=== PATIENT | male | born 1960 | race Caucasian/White ===

== ENCOUNTER 2023-09-19 21:55 | Observation (INO) ==
[2023-09-19 23:10] LABS: Hematocrit (blood only) 39.3 % (42.0-52.0); Hemoglobin 13.5 g/dl (14.0-18.0); Mean Corpuscular Hemoglobin 31.2 pg (25.0-34.0); Mean Corpuscular Hgb Conc 34.4 g/dL (32.0-36.0); Mean Corpuscular Volume 90.8 fL (80.0-100.0); Mean Platelet Volume 10.9 fL (9.4-12.4); Platelet Count 278 K/uL (130-400); RDW Coefficient of Variation 13.5 % (11.5-14.5); RDW Standard Deviation 44.4 fL (36.4-46.3); Red Blood Count 4.33 M/uL (4.70-6.10); White Blood Count 15.41 K/ul (4.8-10.8)
[2023-09-19 23:13] LABS: Base Excess VBG 4.5 mEq/L; HCO3 VBG 28 mmol/L; PCO2 VBG 39 mmHg (38-50); PO2 VBG 70 mmHg; pH VBG 7.47 (7.36-7.41)
[2023-09-19 23:25] LABS: Albumin Globulin Ratio 1.4 (0.9-2); Albumin Level 4.1 gm/dl (3.4-5.0); BUN Creatinine Ratio 19.7 (10-20); Bilirubin,Total 0.4 mg/dl (0.2-1.0); Creatinine Clr Calc Pharmacy 71.9 ml/min; Est GFR (African American) 61.3 ml/min; Est GFR (Non-African American) 52.9 ml/min; Globulin 2.9 gm/dl (2.5-4.0); Magnesium 2.1 mg/dl (1.7-2.4); Potassium 3.4 mmol/L (3.5-5.1)
[2023-09-19 23:26] LABS: Basophils % (auto) 0.6 %; Eosinophils # (auto) 0.11 K/uL (0.00-0.50); Eosinophils % (auto) 0.7 %; Immature Granulocytes # (auto) 0.07 K/uL (0.01-0.20); Immature Granulocytes % (auto) 0.5 %; Lymphocytes # (auto) 5.56 K/uL (1.20-3.40); Lymphocytes % (auto) 36.1 %; Monocytes # (auto) 1.29 K/uL (0.11-0.59); Monocytes % (auto) 8.4 %; Neutrophils # (auto) 8.28 K/uL (1.40-6.50); Neutrophils % (auto) 53.7 %
[2023-09-19 23:31] LABS: Troponin I High Sensitivity 10.4 pg/ml (0-20)
--- NOTE | 2023-09-19 23:32 | Emergency Department Note ---
Impression & Plan Acute exacerbation of chronic obstructive pulmonary disease, Acute hypokalemia, Shortness of breath, Leukocytosis, HIMA (acute kidney injury) ED Provider Note HISTORY OF PRESENT ILLNESS: Patient is a 63-year-old male presenting with shortness of breath. Patient reports that he has had progressively worsening shortness of breath over the last week. He was diagnosed with bronchitis 3 days ago and started on prednisone 20 mg daily. He states that he is gotten progressively more short of breath in the last 3 days. He states that shortness of breath is both at rest and with exertion. He does report some right-sided rib pain. He has been having a cough productive of a green-yellow sputum. Denies any notable fevers at home, but does report being covered in sweat and getting intermittent chills. Denies any recent sick contact exposures. He reports his lower extremities are always swollen and he takes Lasix daily. Denies any DVT or PE history. He is on aspirin daily. Patient does not wear any supplemental oxygen at baseline. ROS: as above PHYSICAL EXAM: Constitutional: Patient appears in no acute distress. HENT: Head: Normocephalic and atraumatic. Eyes: EOMI, PERRL Mouth/Throat: Mucous membranes moist. Neck: Trachea midline. Neck supple. Cardiovascular: RRR, No murmurs, rubs or gallops. Intact distal pulses. Pulmonary/Chest: Patient is conversationally dyspneic. Coarse breath sounds bilaterally. Abdominal: Abdomen soft, no tenderness, rebound or guarding. Musculoskeletal: No edema, tenderness or deformity noted. Skin: Warm and dry. No rash, erythema, pallor or cyanosis Psychiatric: Appropriate mood and affect for situation. Neurological: Alert and keenly responsive. CN II-XII grossly intact, moving all extremities equally and fully. MDM: - Vitals signs showed hypertension - History obtained via patient. Patient presents with shortness of breath and cough. Patient reports has been having progressively worsening shortness of breath over the last week. He was diagnosed with bronchitis 3 days ago and started on prednisone 20 mg daily. He states he has been getting progressively more short of breath in the last 3 days. He is short of breath both at rest and with exertion. He is also had some right-sided rib pain. Has been having a cough productive of green-yellow sputum. Denies any fevers. Denies any DVT or PE history. Denies any anterior chest pain. He is not on any supplemental oxygen at t baseline. - Chronic conditions affecting care: HTN; HLD; hypothyroidism - Differential diagnoses include, but are not limited to: Congestive heart failure; acute coronary syndrome; COPD/asthma exacerbation; pulmonary edema; pulmonary embolism; pneumonia; pneumothorax; viral syndrome - Order placed for continuous cardiac monitoring. At this time, monitor showed rate of 82 bpm with paced rhythm, per my interpretation. - External medical records reviewed. ER visit note from 09/16/2023 was reviewed. Patient presented with cough for the last 2 weeks. He was diagnosed with acute bronchospasm and acute bronchitis and discharged with prednisone. - EKG reviewed by myself showed paced rhythm. - Laboratory workup interpreted by myself showed leukocytosis (15.41) with left shift; hypokalemia (K 3.4); HIMA (Cr 1.42); normal troponin; normal BNP; normal procalcitonin; normal lactate - CXR negative for pneumonia, per my interpretation - Blood cultures ordered - Patient given duoneb treatment in ER. Given 1L NS, 2g IV rocephin for pulmonary coverage and 30 mg IV solumedrol. - Biofire in process. - Patient was weaned down to room air and had normal saturations. However, with ambulation the patient saturations dipped to 90 to 91% he became significantly tachypneic and conversationally dyspneic. - Discussion was had with older adult social work specialist about patient's case and need for admission - Hospitalist consulted for admission - Patient admitted to [facility] Hospitalist service for further evaluation and management. ASSESSMENT AND PLAN: Diagnosis: COPD exacerbation; leukocytosis; shortness of breath; acute hypokalemia; HIMA Plan: admit Past Med/Surg History Medical History Aortic root dilation 4.7cm. Ascending aorta also enlarged at 4.0 cm. Follows with [facility] cardio. Arthritis History of COVID-19 Tested positive 12/02/20 at [facility]. Had body aches; symptoms have resolved. HTN (hypertension) Hyperlipidemia Hypothyroidism Kidney stone Migraine Osteoarthritis Surgical History History of bronchoscopy History of colonoscopy Status post lobectomy of lung R middle lobe, with post op pleuropericarditis and cardiac tamponade [place] [facility] [place] teeth removed Family History Other Cancer Diabetes No family history of adverse response to anesthesia Social History Smoking Status: Never smoker Second Hand Exposure: No; Do You Dip or Chew Tobacco: No (QUIT 9 YEARS AGO); Hx Alcohol Use: Yes Alcohol type: beer and wine Hx Substance Use: No Preferred Language: Malian Communication Ability: Effective Hydrometer Tester Required: No Beliefs That Will Affect Care: None Current Living Situation: Spouse Feels Safe at Home: Yes Assistive Devices: Glasses Allergies Allergies Allergy/AdvReac Type Severity Reaction Status Date / Time No Known Allergies Allergy Verified 05/22/23 01:26 Home Meds Home Medications Medication Instructions Recorded Confirmed aspirin 81 mg tablet,delayed 81 mg PO QAM 05/08/19 05/22/23 release atorvastatin 40 mg tablet 40 mg PO QAM 05/08/19 05/22/23 cetirizine 10 mg tablet (Zyrtec) 10 mg PO QAM 05/08/19 05/22/23 cholecalciferol (vitamin D3) 50 2,000 unit PO QAM 05/08/19 05/22/23 mcg (2,000 unit) tablet (Vitamin D3) furosemide 40 mg tablet 40 mg PO QAM 05/08/19 05/22/23 multivitamin 1 tab PO QAM 05/08/19 05/22/23 omega-3 fatty acids 500 mg capsule 500 mg PO QAM 05/08/19 05/22/23 spironolactone 25 mg tablet 25 mg PO QAM 05/08/19 05/22/23 vitamin E 268 mg (400 unit) capsule 400 unit PO QAM 05/08/19 05/22/23 lisinopril 40 mg tablet 40 mg PO QAM 10/26/20 05/22/23 meclizine 25 mg tablet 25 mg PO TID PRN Dizziness 03/23/21 05/22/23 sumatriptan succinate 50 mg tablet 50 mg PO DAILY PRN Migraine 03/23/21 05/22/23 (Imitrex) Headache amitriptyline 25 mg tablet 25 mg PO HS 06/21/21 05/22/23 azelastine 137 mcg (0.1 %) nasal 2 spray intranasal BID 01/11/23 05/22/23 spray aerosol levothyroxine 125 mcg tablet 125 mcg PO DAILYBB 01/11/23 05/22/23 pantoprazole 40 mg tablet,delayed 40 mg PO QAM 01/11/23 05/22/23 release potassium chloride 10 mEq 10 meq PO DAILY 01/11/23 05/22/23 tablet,extended release tizanidine 4 mg tablet 4 mg PO Q6H PRN Muscle Spasm 01/11/23 05/22/23 azelastine 137 mcg (0.1 %) nasal 2 spray intranasal BID 05/22/23 05/22/23 spray aerosol Previous Rx's Medication Instructions Recorded Flutter Valve #1 ea 08/02/21 albuterol sulfate 90 mcg/actuation 2 puff inhalation QID PRN 09/01/21 aerosol inhaler (Ventolin HFA) shortness of breath or wheezing #18 grams prednisone 20 mg tablet 20 mg PO BID 5 days #10 tabs 09/16/23 Results & Data (ED) Vital Signs Vital Signs - 24 hr 09/19/23 22:09 09/19/23 22:20 09/19/23 22:18 Temperature 36.8 C Temperature Source Temporal Artery Scan Pulse Rate 91 H 93 H Pulse Rate [Apical] 85 Pulse Rate [Exercises] Pulse Rate [Recovery] Pulse Rate [Resting] Pulse Rate from SpO2 Sensor Respiratory Rate 28 H 22 Respiratory Rate [Exercises] Respiratory Rate [Recovery] Respiratory Rate [Resting] Respiratory Effort / Characteristics Non-Labored Spontaneous Respiratory Depth Normal Blood Pressure 142/83 H Blood Pressure [Left Arm] 160/104 H Blood Pressure Mean 102 Blood Pressure Mean [Left Arm] 122 Blood Pressure Position [Left Arm] Sitting Pulse Oximetry 96 95 Pulse Oximetry [Exercises] Pulse Oximetry [Recovery] Pulse Oximetry [Resting] Oxygen Delivery Method Room Air Room Air Oxygen Flow Rate Sepsis Recent Fever Within 48 Hours No Sepsis New/Unexplained Change in Mental Status No Sepsis Action Taken by Nursing No Action Required 09/19/23 22:51 09/19/23 23:00 09/19/23 23:31 Temperature Temperature Source Pulse Rate 86 88 Pulse Rate [Apical] 88 Pulse Rate [Exercises] Pulse Rate [Recovery] Pulse Rate [Resting] Pulse Rate from SpO2 Sensor 89 Respiratory Rate 22 21 20 Respiratory Rate [Exercises] Respiratory Rate [Recovery] Respiratory Rate [Resting] Respiratory Effort / Characteristics Respiratory Depth Blood Pressure 143/86 H Blood Pressure [Left Arm] 133/90 Blood Pressure Mean 105 Blood Pressure Mean [Left Arm] 104 Blood Pressure Position [Left Arm] Sitting Pulse Oximetry 97 97 96 Pulse Oximetry [Exercises] Pulse Oximetry [Recovery] Pulse Oximetry [Resting] Oxygen Delivery Method Room Air Nasal Cannula Room Air Oxygen Flow Rate 3 Sepsis Recent Fever Within 48 Hours Sepsis New/Unexplained Change in Mental Status Sepsis Action Taken by Nursing 09/20/23 00:43 Temperature Temperature Source Pulse Rate Pulse Rate [Apical] Pulse Rate [Exercises] 103 H Pulse Rate [Recovery] 95 H Pulse Rate [Resting] 85 Pulse Rate from SpO2 Sensor Respiratory Rate Respiratory Rate [Exercises] 26 H Respiratory Rate [Recovery] 24 Respiratory Rate [Resting] 20 Respiratory Effort / Characteristics Respiratory Depth Blood Pressure Blood Pressure [Left Arm] Blood Pressure Mean Blood Pressure Mean [Left Arm] Blood Pressure Position [Left Arm] Pulse Oximetry Pulse Oximetry [Exercises] 93 Pulse Oximetry [Recovery] 94 Pulse Oximetry [Resting] 95 Oxygen Delivery Method Room Air Oxygen Flow Rate Sepsis Recent Fever Within 48 Hours Sepsis New/Unexplained Change in Mental Status Sepsis Action Taken by Nursing Laboratory Data 09/19/23 22:40 09/19/23 22:40 Lab Results 09/19/23 09/19/23 09/19/23 Range/Units 22:40 22:40 22:40 WBC 15.41 H (4.8-10.8) K/ul RBC 4.33 L (4.70-6.10) M/uL Hgb 13.5 L (14.0-18.0) g/dl Hct 39.3 L (42.0-52.0) % MCV 90.8 (80.0-100.0) fL MCH 31.2 (25.0-34.0) pg MCHC 34.4 (32.0-36.0) g/dL RDW Std Deviation 44.4 (36.4-46.3) fL RDW Coeff of Bola 13.5 (11.5-14.5) % Plt Count 278 (130-400) K/uL MPV 10.9 (9.4-12.4) fL Immature Gran % (Auto) 0.5 % Neut % (Auto) 53.7 % Lymph % (Auto) 36.1 % [place] % (Auto) 8.4 % Eos % (Auto) 0.7 % Baso % (Auto) 0.6 % Neut # (Auto) 8.28 H (1.40-6.50) K/uL Lymph # (Auto) 5.56 H (1.20-3.40) K/uL [place] # (Auto) 1.29 H (0.11-0.59) K/uL Eos # (Auto) 0.11 (0.00-0.50) K/uL Baso # (Auto) 0.10 (0.00-0.20) K/uL Immature Gran # (Auto) 0.07 (0.01-0.20) K/uL PT 10.7 (9.0-12.0) Seconds INR 1.0 (0.9-1.1) VBG pH (7.36-7.41) VBG pCO2 (38-50) mmHg VBG pO2 mmHg VBG HCO3 mmol/L VBG O2 Saturation % VBG Base Excess mEq/L Sodium 140 (136-145) mmol/L Potassium 3.4 L (3.5-5.1) mmol/L Chloride 104 (98-107) mmol/L Carbon Dioxide 28 (21-32) mmol/L Anion Gap 8 (3-11) BUN 28 H (6-23) mg/dl Creatinine 1.42 H (0.6-1.4) mg/dl Est Cr Clr Drug Dosing 71.9 ml/min Est GFR ( Amer) 61.3 ml/min Est GFR (Non-Af Amer) 52.9 ml/min BUN/Creatinine Ratio 19.7 (10-20) Glucose 170 H (70-99(Fasting)) mg/dl Lactate (0.4-2.0) mmol/L Calcium 9.0 (8.6-10.3) mg/dl Magnesium 2.1 (1.7-2.4) mg/dl Total Bilirubin 0.4 (0.2-1.0) mg/dl AST 23 (13-39) U/L ALT 49 (7-52) U/L Alkaline Phosphatase 72 (34-104) U/L Troponin I High Sens 10.4 (0-20) pg/ml B-Natriuretic Peptide (0-100) pg/ml Total Protein 7.0 (6.0-8.3) gm/dl Albumin 4.1 (3.4-5.0) gm/dl Globulin 2.9 (2.5-4.0) gm/dl Albumin/Globulin Ratio 1.4 (0.9-2) Procalcitonin (0-0.5) ng/ml 09/19/23 09/19/23 09/19/23 Range/Units 22:40 23:06 23:06 WBC (4.8-10.8) K/ul RBC (4.70-6.10) M/uL Hgb (14.0-18.0) g/dl Hct (42.0-52.0) % MCV (80.0-100.0) fL MCH (25.0-34.0) pg MCHC (32.0-36.0) g/dL RDW Std Deviation (36.4-46.3) fL RDW Coeff of Bola (11.5-14.5) % Plt Count (130-400) K/uL MPV (9.4-12.4) fL Immature Gran % (Auto) % Neut % (Auto) % Lymph % (Auto) % [place] % (Auto) % Eos % (Auto) % Baso % (Auto) % Neut # (Auto) (1.40-6.50) K/uL Lymph # (Auto) (1.20-3.40) K/uL [place] # (Auto) (0.11-0.59) K/uL Eos # (Auto) (0.00-0.50) K/uL Baso # (Auto) (0.00-0.20) K/uL Immature Gran # (Auto) (0.01-0.20) K/uL PT (9.0-12.0) Seconds INR (0.9-1.1) VBG pH 7.47 H (7.36-7.41) VBG pCO2 39 (38-50) mmHg VBG pO2 70 mmHg VBG HCO3 28 mmol/L VBG O2 Saturation 95.0 % VBG Base Excess 4.5 mEq/L Sodium (136-145) mmol/L Potassium (3.5-5.1) mmol/L Chloride (98-107) mmol/L Carbon Dioxide (21-32) mmol/L Anion Gap (3-11) BUN (6-23) mg/dl Creatinine (0.6-1.4) mg/dl Est Cr Clr Drug Dosing ml/min Est GFR ( Amer) ml/min Est GFR (Non-Af Amer) ml/min BUN/Creatinine Ratio (10-20) Glucose (70-99(Fasting)) mg/dl Lactate (0.4-2.0) mmol/L Calcium (8.6-10.3) mg/dl Magnesium (1.7-2.4) mg/dl Total Bilirubin (0.2-1.0) mg/dl AST (13-39) U/L ALT (7-52) U/L Alkaline Phosphatase (34-104) U/L Troponin I High Sens (0-20) pg/ml B-Natriuretic Peptide 65 (0-100) pg/ml Total Protein (6.0-8.3) gm/dl Albumin (3.4-5.0) gm/dl Globulin (2.5-4.0) gm/dl Albumin/Globulin Ratio (0.9-2) Procalcitonin < 0.05 (0-0.5) ng/ml 09/19/23 Range/Units 23:53 WBC (4.8-10.8) K/ul RBC (4.70-6.10) M/uL Hgb (14.0-18.0) g/dl Hct (42.0-52.0) % MCV (80.0-100.0) fL MCH (25.0-34.0) pg MCHC (32.0-36.0) g/dL RDW Std Deviation (36.4-46.3) fL RDW Coeff of Bola (11.5-14.5) % Plt Count (130-400) K/uL MPV (9.4-12.4) fL Immature Gran % (Auto) % Neut % (Auto) % Lymph % (Auto) % [place] % (Auto) % Eos % (Auto) % Baso % (Auto) % Neut # (Auto) (1.40-6.50) K/uL Lymph # (Auto) (1.20-3.40) K/uL [place] # (Auto) (0.11-0.59) K/uL Eos # (Auto) (0.00-0.50) K/uL Baso # (Auto) (0.00-0.20) K/uL Immature Gran # (Auto) (0.01-0.20) K/uL PT (9.0-12.0) Seconds INR (0.9-1.1) VBG pH (7.36-7.41) VBG pCO2 (38-50) mmHg VBG pO2 mmHg VBG HCO3 mmol/L VBG O2 Saturation % VBG Base Excess mEq/L Sodium (136-145) mmol/L Potassium (3.5-5.1) mmol/L Chloride (98-107) mmol/L Carbon Dioxide (21-32) mmol/L Anion Gap (3-11) BUN (6-23) mg/dl Creatinine (0.6-1.4) mg/dl Est Cr Clr Drug Dosing ml/min Est GFR ( Amer) ml/min Est GFR (Non-Af Amer) ml/min BUN/Creatinine Ratio (10-20) Glucose (70-99(Fasting)) mg/dl Lactate 1.1 (0.4-2.0) mmol/L Calcium (8.6-10.3) mg/dl Magnesium (1.7-2.4) mg/dl Total Bilirubin (0.2-1.0) mg/dl AST (13-39) U/L ALT (7-52) U/L Alkaline Phosphatase (34-104) U/L Troponin I High Sens (0-20) pg/ml B-Natriuretic Peptide (0-100) pg/ml Total Protein (6.0-8.3) gm/dl Albumin (3.4-5.0) gm/dl Globulin (2.5-4.0) gm/dl Albumin/Globulin Ratio (0.9-2) Procalcitonin (0-0.5) ng/ml Administered Medications Ceftriaxone Sodium (Rocephin) 2,000 mg in 50 mls @ 100 mls/hr IV NOW STA Stop: 09/20/23 01:22 Last Admin: 09/20/23 01:02 Dose: 100 mls/hr Documented By: QGV Discontinued Medications Albuterol (Albut/Ipratrop 3mg/0.5mg Neb 3 Ml Vial) 3 ml NEB NOW STA; Protocol Stop: 09/20/23 00:54 Last Admin: 09/20/23 01:02 Dose: 3 ml Documented By: QGV Sodium Chloride (Nss) 1,000 mls @ 999 mls/hr IV .Q1H1M ONE Stop: 09/20/23 00:49 Last Admin: 09/20/23 00:17 Dose: 999 mls/hr Documented By: QGV Methylprednisolone (Methylprednisolone 40 Mg/Ml Vial) 30 mg IV NOW STA Stop: 09/20/23 00:54 Last Admin: 09/20/23 01:02 Dose: 30 mg Documented By: QGV Discharge Plan Visit Data Chief Complaint: Cough Stated Complaint: COUGH, SOB ED Provider: Dipti Handley Discharge Problem: Acute exacerbation of chronic obstructive pulmonary disease, Acute hypokalemia, Shortness of breath, Leukocytosis, HIMA (acute kidney injury) Forms Stand Alone Forms: [facility] Prescriptions Prescriptions: No Action albuterol sulfate [Ventolin HFA] 90 mcg/actuation HFA aerosol inhaler 2 puff inhalation QID PRN (Reason: shortness of breath or wheezing) Qty: 18 5RF (DME) Flutter Valve Device See Rx Instructions .Route Qty: 1 0RF Rx Instructions: As directed multivitamin Tablet 1 tab PO QAM furosemide 40 mg tablet 40 mg PO QAM atorvastatin 40 mg tablet 40 mg PO QAM cetirizine [Zyrtec] 10 mg Tablet 10 mg PO QAM aspirin 81 mg Tablet,Delayed Release (Dr/Ec) 81 mg PO QAM spironolactone 25 mg tablet 25 mg PO QAM vitamin E 400 unit Capsule 400 unit PO QAM omega-3 fatty acids 500 mg Capsule 500 mg PO QAM cholecalciferol (vitamin D3) [Vitamin D3] 2,000 unit Tablet 2,000 unit PO QAM lisinopril 40 mg tablet 40 mg PO QAM amitriptyline 25 mg tablet 25 mg PO HS sumatriptan succinate [Imitrex] 50 mg Tablet 50 mg PO DAILY MDD 4 tabs PRN (Reason: Migraine Headache) Rx Instructions: may repeat after two hours,if needed. meclizine 25 mg Tablet 25 mg PO TID PRN (Reason: Dizziness) levothyroxine 125 mcg tablet 125 mcg PO DAILYBB tizanidine 4 mg tablet 4 mg PO Q6H PRN (Reason: Muscle Spasm) pantoprazole 40 mg tablet,delayed release (DR/EC) 40 mg PO QAM potassium chloride 10 mEq tablet extended release 10 meq PO DAILY azelastine 137 mcg (0.1 %) Aerosol,[place] 2 spray INTRANASAL BID Rx Instructions: administer into each nostril azelastine 137 mcg (0.1 %) Aerosol,[place] 2 spray INTRANASAL BID Rx Instructions: administer into each nostril prednisone 20 mg tablet 20 mg PO BID 5 Days Qty: 10 0RF Referrals Referrals: Farooq Rodríguez DO [Primary Care Provider] -
[2023-09-19 23:41] LABS: Prothrombin Time 10.7 Seconds (9.0-12.0)
[2023-09-19] MEDS ORDERED: SODIUM CHLORIDE 0.9% 1,000 ML IV ONE (23:49)
[2023-09-20] MEDS ORDERED: ALBUT/IPRATROP 3MG/0.5MG NEB 3 ML VIAL NEB STA (00:53)
[2023-09-20] MEDS ORDERED: cefTRIAXone SODIUM 2,000 MG/50 ML BAG IV STA (00:53)
[2023-09-20] MEDS ORDERED: POTASSIUM CHLORIDE CRTAB 20 MEQ TABCR PO STA (01:01)
--- NOTE | 2023-09-20 01:22 | History & Physical Report ---
Date of Service September 20, 2023 Assessment & Plan (1) Severe sepsis: Plan: SIRS plus ARF Possible aspiration pneumonitis Asthma exacerbation secondary to possible aspiration pneumonitis chronic diastolic heart failure (EF 60%, TTE 2022), equivocal volume status hx PSVT as per records PVD (aortic root dilatation/ascending aortic dilatation as per records) hypertension, elevated secondary to illness hyperlipidemia on statin Rx hx pulmonary nodule status post surgery hypothyroidism, euthyroid as of recent outpatient TSH Steroid-induced hyperglycemia rule out DM Hypokalemia secondary to home diuretic Rx decreased p.o. intake Medical telemetry CS, Unasyn [employer] ANALYST eval, aspiration precautions Nebs RTC, steroid course Pulmonary consult if without improvement Baseline UA, monitor creatinine response to IV albumin given equivocal volume status Hold lisinopril and spironolactone until creatinine back to baseline Amlodipine for BP control while lisinopril and spironolactone on hold. Check hemoglobin A1c DVT prophylaxis. Heparin subcu Full code Text document was generated using [employer] voice recognition software. It may contain grammatical or spelling errors. Kindly contact undersigned for clarification of any documentation item in [employer] ion. History of Present Illness Chief Complaint: Worsening cough, shortness of breath. Primary Care Provider: Farooq Rodríguez DO History obtained from patient, family, and records. Medical history significant for chronic diastolic heart failure (EF 60%, TTE 2022), PSVT, PVD, hypertension, hyperlipidemia, bronchial asthma/bronchiectasis, pulmonary nodule status post surgery, GERD, hepatic steatosis, hypothyroidism, m ood disorder, sleep disordered breathing as per records. Last confinement 2002 for pneumonitis/pericardial effusion with evidence of early signs of tamponade. Patient transferred to [facility] [place]. 2 weeks history of junky cough symptoms. Transient headache symptoms from coughing. Not sure about sick contacts. Patient completed COVID-19 vaccination. Patient seen at the ER 3 days ago. Discharged on prednisone course for bronchitis. Worsening cough/SOB symptoms productive of yellow sputum at home. Coughing with meals/water intake as per . Chest pain from coughing. Poor appetite. Possible fluid retention/abdominal distention without pain as per patient. Patient returned to ER tonight. 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 Allergies Allergy/AdvReac Type Severity Reaction Status Date / Time Beta-Blockers AdvReac Intermediate bradycardia Verified 09/20/23 08:03 (Beta-Adrenergic Bloc Home Medications Medication Instructions Recorded Confirmed Type aspirin 81 mg tablet,delayed 81 mg PO QAM 05/08/19 09/20/23 History release atorvastatin 40 mg tablet 40 mg PO QAM 05/08/19 09/20/23 History cetirizine 10 mg tablet (Zyrtec) 10 mg PO QAM 05/08/19 09/20/23 History cholecalciferol (vitamin D3) 50 2,000 unit PO QAM 05/08/19 09/20/23 History mcg (2,000 unit) tablet (Vitamin D3) furosemide 40 mg tablet 60 mg PO QAM 05/08/19 09/20/23 History omega-3 fatty acids 500 mg capsule 500 mg PO QAM 05/08/19 09/20/23 History spironolactone 25 mg tablet 25 mg PO QAM 05/08/19 09/20/23 History vitamin E 268 mg (400 unit) capsule 400 unit PO QAM 05/08/19 09/20/23 History lisinopril 40 mg tablet 40 mg PO QAM 10/26/20 09/20/23 History meclizine 25 mg tablet 25 mg PO TID PRN Dizziness 03/23/21 09/20/23 History sumatriptan succinate 50 mg tablet 50 mg PO DAILY PRN Migraine 03/23/21 09/20/23 History (Imitrex) Headache amitriptyline 25 mg tablet 25 mg PO HS 06/21/21 09/20/23 History Flutter Valve #1 ea 08/02/21 09/20/23 Rx levothyroxine 125 mcg tablet 125 mcg PO DAILYBB 01/11/23 09/20/23 History pantoprazole 40 mg tablet,delayed 40 mg PO QAM 01/11/23 09/20/23 History release potassium chloride 10 mEq 10 meq PO DAILY 01/11/23 09/20/23 History tablet,extended release tizanidine 4 mg tablet 4 mg PO Q6H PRN Muscle Spasm 01/11/23 09/20/23 History azelastine 137 mcg (0.1 %) nasal 2 spray intranasal BID 05/22/23 09/20/23 History spray aerosol prednisone 20 mg tablet 20 mg PO BID 5 days #10 tabs 09/16/23 09/20/23 Rx albuterol sulfate 2.5 mg/3 mL 2.5 mg continuous nebulization Q4 09/20/23 09/20/23 History (0.083 %) solution for nebulization PRN Shortness Of Breath Or Wheezing albuterol sulfate 90 mcg/actuation 2 puff inhalation QID 09/20/23 09/20/23 History aerosol inhaler ipratropium 0.5 mg-albuterol 3 mg 3 ml inhalation QID 09/20/23 09/20/23 History (2.5 mg base)/3 mL nebulization soln mometasone-formoterol HFA 100 1 puff inhalation UD PRN Unknown 09/20/23 09/20/23 History mcg-5 mcg/actuation aerosol inhaler multivitamin with minerals 1 tab PO DAILY 09/20/23 09/20/23 History (Multiple Vitamin-Minerals tablet) Past Med/Surg History Medical History Aortic root dilation 4.7cm. Ascending aorta also enlarged at 4.0 cm. Follows with [facility] cardio. Arthritis History of COVID-19 Tested positive 12/02/20 at [facility]. Had body aches; symptoms have resolved. HTN (hypertension) Hyperlipidemia Hypothyroidism Kidney stone Migraine Osteoarthritis Surgical History History of bronchoscopy History of colonoscopy Status post lobectomy of lung R middle lobe, with post op pleuropericarditis and cardiac tamponade requiring transfer to [facility] [facility] for urgent pericardiocentesis. [place] teeth removed Family History Other Cancer Diabetes No family history of adverse response to anesthesia Social History Smoking Status: Never smoker Second Hand Exposure: No; Do You Dip or Chew Tobacco: No; Hx Alcohol Use: Yes Alcohol type: beer Hx Substance Use: No Preferred Language: Guyanese Communication Ability: Effective Balling Head Tender Required: No Beliefs That Will Affect Care: None Current Living Situation: Spouse Other Information That Helps Us Care for You: No Feels Safe at Home: Yes Safety Concerns: Feels Safe At This Time Assistive Devices: Cane and Glasses Review of Systems Review of Systems: As per HPI, all other systems reviewed and negative Physical Exam Physical Exam: GENERAL: Slightly uncomfortable, slightly anxious, morbidly obese, incessant coughing, minimal respiratory distress SKIN: Normal color, warm HEENT: [place] palpebral conjunctivae, no ptosis, dry buccal mucosa, nasal cannula in place NECK : Supple, short neck, no tenderness CHEST : Decreased breath sounds, occasional expiratory wheezes, no tenderness HEART : Tachycardic, no obvious murmurs ABDOMEN: Marked distention, nontender EXTREMITIES : Minimal LE swelling, no LE tenderness, no other conspicuous deformities noted NEUROLOGIC : Coherent, no facial asymmetry, no other gross focality Results & Data Results & Data Vital Signs (Past 12 Hours) Vital Signs Temp Pulse Pulse Pulse Pulse Pulse Resp 09/20/23 00:43 103 H 95 H 85 09/19/23 23:31 88 20 09/19/23 23:00 88 21 09/19/23 22:51 86 22 09/19/23 22:18 85 22 09/19/23 22:20 93 H 09/19/23 22:09 36.8 C 91 H 28 H Resp Resp Resp BP BP Pulse Ox Pulse Ox 09/20/23 00:43 26 H 24 20 93 09/19/23 23:31 133/90 96 09/19/23 23:00 143/86 H 97 09/19/23 22:51 97 09/19/23 22:18 160/104 H 95 09/19/23 22:20 09/19/23 22:09 142/83 H 96 Pulse Ox Pulse Ox O2 Del Method O2 Flow Rate 09/20/23 00:43 94 95 Room Air 09/19/23 23:31 Room Air 09/19/23 23:00 Nasal Cannula 3 09/19/23 22:51 Room Air 09/19/23 22:18 Room Air 09/19/23 22:20 09/19/23 22:09 Room Air Laboratory Results Laboratory Results WBC 15.41 K/ul (4.8-10.8) H 09/19/23 22:40 RBC 4.33 M/uL (4.70-6.10) L 09/19/23 22:40 Hgb 13.5 g/dl (14.0-18.0) L 09/19/23 22:40 Hct 39.3 % (42.0-52.0) L 09/19/23 22:40 MCV 90.8 fL (80.0-100.0) 09/19/23 22:40 MCH 31.2 pg (25.0-34.0) 09/19/23 22:40 MCHC 34.4 g/dL (32.0-36.0) 09/19/23 22:40 RDW Std Deviation 44.4 fL (36.4-46.3) 09/19/23 22:40 RDW Coeff of Bola 13.5 % (11.5-14.5) 09/19/23 22:40 Plt Count 278 K/uL (130-400) 09/19/23 22:40 MPV 10.9 fL (9.4-12.4) 09/19/23 22:40 Immature Gran % (Auto) 0.5 % 09/19/23 22:40 Neut % (Auto) 53.7 % 09/19/23 22:40 Lymph % (Auto) 36.1 % 09/19/23 22:40 Greer % (Auto) 8.4 % 09/19/23 22:40 Eos % (Auto) 0.7 % 09/19/23 22:40 Baso % (Auto) 0.6 % 09/19/23 22:40 Neut # (Auto) 8.28 K/uL (1.40-6.50) H 09/19/23 22:40 Lymph # (Auto) 5.56 K/uL (1.20-3.40) H 09/19/23 22:40 Greer # (Auto) 1.29 K/uL (0.11-0.59) H 09/19/23 22:40 Eos # (Auto) 0.11 K/uL (0.00-0.50) 09/19/23 22:40 Baso # (Auto) 0.10 K/uL (0.00-0.20) 09/19/23 22:40 Immature Gran # (Auto) 0.07 K/uL (0.01-0.20) 09/19/23 22:40 PT 10.7 Seconds (9.0-12.0) 09/19/23 22:40 INR 1.0 (0.9-1.1) 09/19/23 22:40 VBG pH 7.47 (7.36-7.41) H 09/19/23 23:06 VBG pCO2 39 mmHg (38-50) 09/19/23 23:06 VBG pO2 70 mmHg 09/19/23 23:06 VBG HCO3 28 mmol/L 09/19/23 23:06 VBG O2 Saturation 95.0 % 09/19/23 23:06 VBG Base Excess 4.5 mEq/L 09/19/23 23:06 Sodium 140 mmol/L (136-145) 09/19/23 22:40 Potassium 3.4 mmol/L (3.5-5.1) L 09/19/23 22:40 Chloride 104 mmol/L (98-107) 09/19/23 22:40 Carbon Dioxide 28 mmol/L (21-32) 09/19/23 22:40 Anion Gap 8 (3-11) 09/19/23 22:40 BUN 28 mg/dl (6-23) H 09/19/23 22:40 Creatinine 1.42 mg/dl (0.6-1.4) H 09/19/23 22:40 Est Cr Clr Drug Dosing 71.9 ml/min 09/19/23 22:40 Est GFR ( Amer) 61.3 ml/min 09/19/23 22:40 Est GFR (Non-Af Amer) 52.9 ml/min 09/19/23 22:40 BUN/Creatinine Ratio 19.7 (10-20) 09/19/23 22:40 Glucose 170 mg/dl (70-99(Fasting)) H 09/19/23 22:40 Lactate 1.1 mmol/L (0.4-2.0) 09/19/23 23:53 Calcium 9.0 mg/dl (8.6-10.3) 09/19/23 22:40 Magnesium 2.1 mg/dl (1.7-2.4) 09/19/23 22:40 Total Bilirubin 0.4 mg/dl (0.2-1.0) 09/19/23 22:40 AST 23 U/L (13-39) 09/19/23 22:40 ALT 49 U/L (7-52) 09/19/23 22:40 Alkaline Phosphatase 72 U/L (34-104) 09/19/23 22:40 Troponin I High Sens 10.4 pg/ml (0-20) 09/19/23 22:40 B-Natriuretic Peptide 65 pg/ml (0-100) 09/19/23 23:06 Total Protein 7.0 gm/dl (6.0-8.3) 09/19/23 22:40 Albumin 4.1 gm/dl (3.4-5.0) 09/19/23 22:40 Globulin 2.9 gm/dl (2.5-4.0) 09/19/23 22:40 Albumin/Globulin Ratio 1.4 (0.9-2) 09/19/23 22:40 Procalcitonin < 0.05 ng/ml (0-0.5) 09/19/23 22:40 Diagnostic Findings Chest x-ray as per my interpretation cardiomegaly EKG as per my interpretation : Rate 80, NSR, LAD, LAFB, nonspecific T wave abnormalities
[2023-09-20] MEDS ORDERED: ACETAMINOPHEN 500 MG TAB PO PRN (01:27)
[2023-09-20] MEDS ORDERED: oxyCODONE HCL IR 5 MG TAB (IMMEDIATE RELEASE) PO PRN (01:27)
[2023-09-20] MEDS ORDERED: BENZONATATE 100 MG CAPSULE PO ONE (01:27)
[2023-09-20] MEDS ORDERED: PROMETHAZINE HCL 12.5 MG in SODIUM CHLORIDE 0.9% 50 ML IV PRN (01:27)
[2023-09-20] MEDS ORDERED: BENZONATATE 100 MG CAPSULE PO PRN (01:27)
[2023-09-20] MEDS ORDERED: AMPICILLIN/SULBACTAM SOD 3,000 MG in SODIUM CHLOR 0.9% MINI-B 100 ML IV STA (01:31)
[2023-09-20 01:42] LABS: Thyroid Stimulating Hormone 5.476 uIu/ml (0.300-4.500)
[2023-09-20] MEDS ORDERED: ALBUMIN 25% 25 GM/100 ML VIAL IV ONE (01:45)
[2023-09-20] MEDS ORDERED: POTASSIUM CHLORIDE CRTAB 20 MEQ TABCR PO ONE (02:30)
[2023-09-20 04:31] LABS: Adenovirus PCR Not Detected (NotDetected); Bordetella parapertussis PCR Not Detected (NotDetected); Bordetella pertussis PCR Not Detected (NotDetected); Chlamydia pneumoniae PCR Not Detected (NotDetected); Coronavirus 229E PCR Not Detected (NotDetected); Coronavirus CoV-2 (COVID19)PCR Not Detected (NotDetected); Coronavirus HKU1 PCR Not Detected (NotDetected); Coronavirus NL63 PCR Not Detected (NotDetected); Coronavirus OC43PCR Not Detected (NotDetected); Human Metapneumovirus PCR Not Detected (NotDetected); Influenza A PCR Not Detected (NotDetected); Influenza B PCR Not Detected (NotDetected); Mycoplasma pneumoniae PCR Not Detected (NotDetected); Parainfluenza Virus 1 PCR Not Detected (NotDetected); Parainfluenza Virus 2 PCR Not Detected (NotDetected); Parainfluenza Virus 3 PCR Not Detected (NotDetected); Parainfluenza Virus 4 PCR Not Detected (NotDetected); Respiratory Syncytial VirusPCR Not Detected (NotDetected); Rhinovirus/Enterovirus PCR Not Detected (NotDetected)
[2023-09-20 04:35] LABS: T4 Free Thyroxine 1.32 ng/dl (0.61-1.60)
[2023-09-20] MEDS ORDERED: XOPENEX/ATROVENT 1.25mg/0.5MG NEB COMBO NEB SCH (05:00)
[2023-09-20] MEDS ORDERED: tiZANidine HCL 4 MG TABLET PO PRN (05:40)
[2023-09-20] MEDS ORDERED: MECLIZINE HCL 25 MG TAB PO PRN (05:40)
[2023-09-20 06:15] LABS: Basophils # (auto) 0.03 K/uL (0.00-0.20); Basophils % (auto) 0.2 %; Hematocrit (blood only) 37.4 % (42.0-52.0); Hemoglobin 12.7 g/dl (14.0-18.0); Immature Granulocytes % (auto) 0.7 %; Lymphocytes # (auto) 1.87 K/uL (1.20-3.40); Lymphocytes % (auto) 13.5 %; Mean Corpuscular Hemoglobin 30.8 pg (25.0-34.0); Mean Corpuscular Volume 90.6 fL (80.0-100.0); Mean Platelet Volume 10.7 fL (9.4-12.4); Monocytes # (auto) 0.43 K/uL (0.11-0.59); Monocytes % (auto) 3.1 %; Neutrophils # (auto) 11.43 K/uL (1.40-6.50); Neutrophils % (auto) 82.5 %; Platelet Count 238 K/uL (130-400); RDW Coefficient of Variation 13.6 % (11.5-14.5); RDW Standard Deviation 44.8 fL (36.4-46.3); Red Blood Count 4.13 M/uL (4.70-6.10); White Blood Count 13.86 K/ul (4.8-10.8)
[2023-09-20] MEDS ORDERED: amLODIPine BESYLATE 5 MG TAB PO SCH (06:20)
[2023-09-20] MEDS: HEPARIN SOD 5,000 UNIT/0.5 ML VIAL SQ SCH ×3 (06:33→20:04)
[2023-09-20] MEDS: LEVOTHYROXINE SODIUM 125 MCG TABLET PO SCH (06:33)
[2023-09-20 06:46] LABS: BUN Creatinine Ratio 22.8 (10-20); Calcium 8.7 mg/dl (8.6-10.3); Creatinine Clr Calc Pharmacy 99.4 ml/min; Est GFR (African American) 92.6 ml/min; Est GFR (Non-African American) 79.9 ml/min; Potassium 4.4 mmol/L (3.5-5.1)
[2023-09-20] MEDS: IPRATROPIUM BROMIDE NEB SOLN 0.02% 2.5 ML VIAL INH SCH ×3 (06:59→19:52)
[2023-09-20] MEDS: LEVALBUTEROL 1.25 MG/3 ML NEB NEB SCH ×3 (06:59→19:52)
--- NOTE | 2023-09-20 07:01 | XRay Report ---
SINGLE VIEW CHEST CLINICAL HISTORY: Dyspnea FINDINGS: An AP, portable, upright chest radiograph is compared to study dated 09/16/2023. Correlatio n is made with chest CT dated 01/10/2023. The examination is degraded by portable technique and apical lordotic positioning. The heart is enlarged. The pulmonary vasculature is noncongested. There is mil d bibasilar scarring/atelectasis. No airspace consolidation or large pleural effusion is identified. No pneumothorax is seen. The skeletal structures are osteopenic. The bony thorax is grossly intact. A n intrathecal lead projects over the lower thoracic spine. IMPRESSION: Cardiomegaly with no active disease in the chest. ACT 112: Negative or not required by law. Electronically signed by: Valdemar Cordon M.D. 09/20/2023 7:00 AM
--- NOTE | 2023-09-20 07:15 | Ultrasound Report ---
Exam(s): US ABDOMEN LIMITED EXAM: US Abdomen Limited, Right Upper Quadrant CLINICAL HISTORY: Abdominal distention TECHNIQUE: Real-time ultrasound of the abdomen with image documentation. COMPARISON: No relevant prior studies available. FINDINGS: Liver: There is increase echogenicity of the liver parenchyma. No mass. No intrahepatic bile duct dilation. Free fluid: No ascites. IMPRESSION: 1. No ascites. 2. Fatty infiltration of the liver. Electronically signed by: Gilda Mckenzie MD 09/20/23 04:10 AM
[2023-09-20] MEDS: AMPICILLIN/SULBACTAM SOD 3,000 MG in SODIUM CHLOR 0.9% MINI-B 100 ML IV SCH ×2 (08:08→13:15)
[2023-09-20] MEDS: PANTOprazole 40 MG TAB PO SCH (08:09)
[2023-09-20] MEDS: CETIRIZINE HCL 10 MG TABLET PO SCH (08:09)
[2023-09-20] MEDS: ATORVASTATIN 40 MG TAB PO SCH (08:09)
[2023-09-20] MEDS: MULTIVITAMIN TAB PO SCH (08:09)
[2023-09-20] MEDS: ASPIRIN 81 MG ECTAB PO SCH (08:09)
[2023-09-20] MEDS: AZELASTINE HCL 0.1% NASAL 200 SPRAYS/27,400 MCG BTL SCH ×2 (08:10→20:03)
[2023-09-20] MEDS ORDERED: methylPREDNISolone 40 MG in SYRINGE 0 ML IV SCH (09:00)
[2023-09-20 09:20] LABS: Estimated Average Glucose 131 mg/dl; Hemoglobin A1C 6.2 % (4.5-5.6)
--- NOTE | 2023-09-20 09:26 | Hospitalist Progress Note ---
Date of Service September 20, 2023 Assessment & Plan (1) Severe sepsis: (2) HIMA (acute kidney injury): (3) Acute hypokalemia: (4) Morbid obesity: (5) Hepatic steatosis: Plan SIRS plus acute renal failure--> resolved creatinine to baseline Asthma exacerbation secondary to possible aspiration pneumonitis/complicated bronchitis--> improved with no evidence of pneumonia, breathing well on room air, stop Unasyn and transition to azithromycin, 5 days of oral prednisone DuoNebs as needed. Add Mucinex, Flonase nasal spray, Robitussin AC as needed. Follow-up with pulmonology as needed. chronic diastolic heart failure (EF 60%, TTE 2022), equivocal volume status -->held lasix in setting of SIRS resuscitation efforts, restart in am hx PSVT as per records-->small run of atrial tach noted x 5 beats on telemetry in setting of acute illness. PVD (aortic root dilatation/ascending aortic dilatation as per records)-->f/u cardiology hypertension, elevated secondary to illness --improved, restart home antihypertensives. hyperlipidemia on statin Rx-continue hx pulmonary nodule status post surgery--> continue outpatient monitoring. hypothyroidism, euthyroid as of recent outpatient TSH Steroid-induced hyperglycemia rule out DM --> A1c 6.2, follow-up with PCP to discuss further monitoring/treatment Hypokalemia secondary to home diuretic Rx decreased p.o. intake--> resolved after replacement Morbid obesity DVT prophylaxis. Heparin subcu Full code Disposition-transition off med telemetry at this time and plan for home in a.m. was at bedside and all plans and questions were answered. I spent a total [id number] coordinating, documenting, and providing care for this patient excluding time spent in the performance of separately billed services DO Reynaldo Candelario ospitalist Admission and Anticipated Discharge Date Admission Date: September 20, 2023 Subjective 63 yo man presents with cough for two weeks SOB on arrival, improved mucous production persists recently sick approximately 1 month ago with residual cough ("cannot get rid of it") Patient is breathing well on room air and is tolerating p.o. no evidence of issues with aspiration recently and no evidence of pneumonia on chest imaging Abdominal ultrasound results reviewed with who was present at bedside and patient. Physical Exam Physical Exam: CONSTITUTIONAL: obese, vitals as above, generally well-appearing, NAD EYES: normal conjunctivae, no scleral icterus ENT: external ear and nose normal, MMM NECK: trachea midline RESPIRATORY: clear to auscultation bilaterally, no crackles, rales or wheezes, normal respiratory effort CARDIOVASCULAR: regular rate and rhythm, S1 and 2 heard without murmurs, gallops or rubs, no JVD, no peripheral edema CHEST: inspection of chest was normal GASTROINTESTINAL: soft, nontender, ND, no guarding MUSCULOSKELETAL: strength 5/5 throughout, head is normocephalic and atraumatic SKIN: warm and dry NEUROLOGIC: CN 2-12 grossly intact, no sensory deficit, normal cognition, normal speech, no tremor PSYCHIATRIC: alert cooperative and oriented to person, place and time. Euthymic mood, makes good eye contact, language grossly intact, recent and remote memory grossly intact. Results & Data Results & Data Vital Signs (Past 12 Hours) Vital Signs Temp Pulse Pulse Pulse Pulse Pulse Resp 09/20/23 08:55 36.7 C 95 H 18 09/20/23 06:59 81 16 09/20/23 06:30 36.7 C 82 22 09/20/23 05:47 09/20/23 05:30 81 09/20/23 05:00 71 18 09/20/23 00:43 103 H 95 H 85 09/19/23 23:31 88 20 09/19/23 23:00 88 21 09/19/23 22:51 86 22 09/19/23 22:20 93 H 09/19/23 22:18 85 22 09/19/23 22:09 36.8 C 91 H 28 H Resp Resp Resp BP BP Pulse Ox Pulse Ox 09/20/23 08:55 136/84 94 09/20/23 06:59 93 09/20/23 06:30 160/96 H 93 09/20/23 05:47 09/20/23 05:30 09/20/23 05:00 162/83 H 94 09/20/23 00:43 26 H 24 20 93 09/19/23 23:31 133/90 96 09/19/23 23:00 143/86 H 97 09/19/23 22:51 97 09/19/23 22:20 09/19/23 22:18 160/104 H 95 09/19/23 22:09 142/83 H 96 Pulse Ox Pulse Ox O2 Del Method O2 Flow Rate 09/20/23 08:55 Room Air 09/20/23 06:59 Room Air 09/20/23 06:30 Room Air 09/20/23 05:47 Room Air 09/20/23 05:30 09/20/23 05:00 Room Air 09/20/23 00:43 94 95 Room Air 09/19/23 23:31 Room Air 09/19/23 23:00 Nasal Cannula 3 09/19/23 22:51 Room Air 09/19/23 22:20 09/19/23 22:18 Room Air 09/19/23 22:09 Room Air Laboratory Results Short CBC 09/19/23 09/20/23 Range/Units 22:40 05:56 WBC 15.41 H 13.86 H (4.8-10.8) K/ul Hgb 13.5 L 12.7 L (14.0-18.0) g/dl Hct 39.3 L 37.4 L (42.0-52.0) % Plt Count 278 238 (130-400) K/uL BMP 09/19/23 09/20/23 22:40 05:53 Sodium 140 140 Potassium 3.4 L 4.4 D Chloride 104 107 Carbon Dioxide 28 26 BUN 28 H 23 Creatinine 1.42 H 1.01 D Glucose 170 H 160 H Calcium 9.0 8.7 Liver Function 09/19/23 Range/Units 22:40 Total Bilirubin 0.4 (0.2-1.0) mg/dl AST 23 (13-39) U/L ALT 49 (7-52) U/L Alkaline Phosphatase 72 (34-104) U/L Albumin 4.1 (3.4-5.0) gm/dl Diagnostic Findings Chest X-Ray 09/19/23 22:51 SINGLE VIEW CHEST CLINICAL HISTORY: Dyspnea FINDINGS: An AP, portable, upright chest radiograph is compared to study dated 09/16/2023. Correlation is made with chest CT dated 01/10/2023. The examination is degraded by portable technique and apical lordotic positioning. The heart is enlarged. The pulmonary vasculature is noncongested. There is mild bibasilar scarring/atelectasis. No airspace consolidation or large pleural effusion is identified. No pneumothorax is seen. The skeletal structures are osteopenic. The bony thorax is grossly intact. An intrathecal lead projects over the lower thoracic spine. IMPRESSION: Cardiomegaly with no active disease in the chest. ACT 112: Negative or not required by law. Electronically signed by: Valdemar Cordon M.D. 09/20/2023 7:00 AM Abdomen Ultrasound 09/20/23 01:31 Exam(s): US ABDOMEN LIMITED EXAM: US Abdomen Limited, Right Upper Quadrant CLINICAL HISTORY: Abdominal distention TECHNIQUE: Real-time ultrasound of the abdomen with image documentation. COMPARISON: No relevant prior studies available. FINDINGS: Liver: There is increase echogenicity of the liver parenchyma. No mass. No intrahepatic bile duct dilation. Free fluid: No ascites. IMPRESSION: 1. No ascites. 2. Fatty infiltration of the liver. Electronically signed by: Gilda Mckenzie MD 09/20/23 04:10 AM Medications Administered Current Inpatient Medications Acetaminophen (Acetaminophen 500 Mg Tab) 500 mg PO Q6H PRN PRN Reason: fever/pain Stop: 10/20/23 01:26 Amitriptyline HCl (Amitriptyline Hcl 25 Mg Tab) 25 mg PO HS [facility] Stop: 10/20/23 20:59 Amlodipine Besylate (Amlodipine Besylate 5 Mg Tab) [facility] Stop: 10/20/23 06:19 Last Admin: 09/20/23 08:07 Dose: 2.5 mg Aspirin (Aspirin 81 Mg Ectab) 81 mg PO QAM [facility] Stop: 10/20/23 08:59 Last Admin: 09/20/23 08:09 Dose: 81 mg Atorvastatin Calcium (Atorvastatin 40 Mg Tab) 40 mg PO QAM [facility] Stop: 10/20/23 08:59 Last Admin: 09/20/23 08:09 Dose: 40 mg Azelastine HCl (Azelastine Hcl 0.1% Nasal 200 Sprays/27,400 Mcg Btl) 2 sprays NA BID JENNIFER Stop: 10/20/23 08:59 Last Admin: 09/20/23 08:10 Dose: 2 sprays Benzonatate (Benzonatate 100 Mg Capsule) 100 mg PO TID PRN PRN Reason: Cough Stop: 10/20/23 01:26 Cetirizine HCl (Cetirizine Hcl 10 Mg Tablet) 10 mg PO QAM [facility] Stop: 10/20/23 08:59 Last Admin: 09/20/23 08:09 Dose: 10 mg Heparin Sodium (Porcine) (Heparin Sod 5,000 Unit/0.5 Ml Vial) 5,000 units SQ Q8 [facility] Stop: 10/20/23 05:59 Last Admin: 09/20/23 06:33 Dose: 5,000 units Promethazine HCl 12.5 mg/ (Sodium Chloride) 50.5 mls @ 202 mls/hr IV Q6H PRN PRN Reason: Nausea And Vomiting Stop: 10/20/23 01:26 Methylprednisolone 40 mg/ (Syringe) 0.64 mls @ 1.5 mls/min IV DAILY [facility] Stop: 10/20/23 08:59 Last Admin: 09/20/23 08:10 Dose: 1.5 mls/min Ampicillin Sodium/Sulbactam Sodium 3,000 mg/ Sodium Chloride 100 mls @ 100 mls/hr IV Q6H [facility] Stop: 09/27/23 07:59 Last Admin: 09/20/23 08:08 Dose: 100 mls/hr Ipratropium [place] (Ipratropium [place] Neb Soln 0.02% 2.5 Ml Vial) 0.5 mg INH Q6R [facility] Stop: 10/20/23 06:59 Last Admin: 09/20/23 06:59 Dose: 0.5 mg Levalbuterol HCl (Levalbuterol 1.25 Mg/3 Ml Neb) 1.25 mg NEB Q6R [facility] Stop: 10/20/23 06:59 Last Admin: 09/20/23 06:59 Dose: 1.25 mg Levothyroxine Sodium (Levothyroxine Sodium 125 Mcg Tablet) 125 mcg PO DAILYBB [facility] Stop: 10/20/23 06:29 Last Admin: 09/20/23 06:33 Dose: 125 mcg Meclizine HCl (Meclizine Hcl 25 Mg Tab) 25 mg PO TID PRN PRN Reason: Dizziness Stop: 10/20/23 05:39 Multivitamins (Multivitamin Tab) 1 tab PO QAM [facility] Stop: 10/20/23 08:59 Last Admin: 09/20/23 08:09 Dose: 1 tab Oxycodone HCl (Oxycodone Hcl Ir 5 Mg Tab (Immediate Release)) 5 mg PO Q4H PRN PRN Reason: Pain Stop: 10/04/23 01:26 Pantoprazole Sodium (Pantoprazole 40 Mg Tab) [facility] Stop: 10/20/23 08:59 Last Admin: 09/20/23 08:09 Dose: 40 mg Tizanidine HCl (Tizanidine Hcl 4 Mg Tablet) 4 mg PO Q6H PRN PRN Reason: Muscle Spasm Stop: 10/20/23 05:39
--- NOTE | 2023-09-20 12:05 | Electrocardiogram Report ---
Test Reason : Blood Pressure : / mmHG Vent. Rate : 078 BPM Atrial Rate : 078 BPM P-R Int : 158 ms QRS Dur : 096 ms QT Int : 412 ms P-R-T Axes : 066 -12 031 degrees QTc Int : 469 ms Normal sinus rhythm Incomplete right bundle branch block Nonspecific ST abnormality Confirmed by Placido Nam ([id number] on 09/20/2023 12:05:12 PM Referred By: REFERRED SELF Confirmed By:Jamaal Nam
[2023-09-20] MEDS: FLUTICASONE PROPIONATE NA SPR 16 GM BTL NAE SCH (13:16)
[2023-09-20] MEDS ORDERED: AZITHROMYCIN 500 MG in DEXTROSE 5% 250 ML IV ONE (14:00)
[2023-09-20 14:31] LABS: Appearance Urine Clear (Clear); Bilirubin Urine Negative (Negative); Blood Urine Negative (Negative); Color Urine Yellow; Glucose Urine UA Negative (Negative); Ketones Urine Trace (Negative); Leukocyte Esterase Urine Negative (Negative); Nitrite Urine Negative (Negative); Protein Urine Negative (Negative); Specific Gravity Urine 1.027 (1.000-1.030); Urobilinogen Urine Negative (Negative); pH Urine 6.5 (4.5-7.5)
[2023-09-20] MEDS ORDERED: FLUTICASONE/VILANTEROL 100/25MCG 14 PUFFS/INHALER INH PRN (14:39)
[2023-09-20] MEDS: guaiFENesin 600 MG TABCR PO SCH (20:04)
[2023-09-20] MEDS ORDERED: AMITRIPTYLINE HCL 25 MG TAB PO SCH (21:00)
[2023-09-21] MEDS: IPRATROPIUM BROMIDE NEB SOLN 0.02% 2.5 ML VIAL INH SCH ×2 (01:05→06:53)
[2023-09-21] MEDS: LEVALBUTEROL 1.25 MG/3 ML NEB NEB SCH ×2 (01:05→06:53)
[2023-09-21] MEDS: LEVOTHYROXINE SODIUM 125 MCG TABLET PO SCH (05:47)
[2023-09-21] MEDS: HEPARIN SOD 5,000 UNIT/0.5 ML VIAL SQ SCH (05:47)
[2023-09-21] MEDS: ASPIRIN 81 MG ECTAB PO SCH (07:41)
[2023-09-21] MEDS: ATORVASTATIN 40 MG TAB PO SCH (07:42)
[2023-09-21] MEDS: AZELASTINE HCL 0.1% NASAL 200 SPRAYS/27,400 MCG BTL SCH (07:43)
[2023-09-21] MEDS: FLUTICASONE PROPIONATE NA SPR 16 GM BTL NAE SCH (07:45)
[2023-09-21] MEDS: CETIRIZINE HCL 10 MG TABLET PO SCH (07:45)
[2023-09-21] MEDS: guaiFENesin 600 MG TABCR PO SCH (07:47)
[2023-09-21] MEDS: MULTIVITAMIN TAB PO SCH (07:48)
[2023-09-21] MEDS: PANTOprazole 40 MG TAB PO SCH (07:49)
[2023-09-21 07:54] LABS: Hematocrit (blood only) 37.2 % (42.0-52.0); Hemoglobin 12.8 g/dl (14.0-18.0); Mean Corpuscular Hemoglobin 31.3 pg (25.0-34.0); Mean Corpuscular Hgb Conc 34.4 g/dL (32.0-36.0); Mean Platelet Volume 10.8 fL (9.4-12.4); Platelet Count 252 K/uL (130-400); RDW Coefficient of Variation 13.8 % (11.5-14.5); Red Blood Count 4.09 M/uL (4.70-6.10); White Blood Count 17.98 K/ul (4.8-10.8)
[2023-09-21 08:07] LABS: BUN Creatinine Ratio 23.4 (10-20); Calcium 8.7 mg/dl (8.6-10.3); Creatinine Clr Calc Pharmacy 106.8 ml/min; Est GFR (Non-African American) 87.2 ml/min; Magnesium 2.3 mg/dl (1.7-2.4); Potassium 3.9 mmol/L (3.5-5.1)
[2023-09-21] MEDS ORDERED: POTASSIUM CHLORIDE 10 MEQ TABCR PO SCH (09:00)
[2023-09-21] MEDS ORDERED: SPIRONOLACTONE 25 MG TAB PO SCH (09:00)
[2023-09-21] MEDS ORDERED: predniSONE 20 MG TAB PO SCH (09:00)
[2023-09-21] MEDS ORDERED: AZITHROMYCIN 250 MG TAB PO SCH (09:00)
[2023-09-21] MEDS ORDERED: FUROSEMIDE 20 MG TAB PO SCH (09:00)
[2023-09-21] MEDS ORDERED: lisinopril 40 MG TAB PO SCH (09:00)
[2023-09-21] MEDS ORDERED: LEVALBUTEROL 1.25 MG/3 ML NEB NEB PRN (10:20)
[2023-09-21] MEDS ORDERED: IPRATROPIUM BROMIDE NEB SOLN 0.02% 2.5 ML VIAL INH PRN (10:20)
--- NOTE | 2023-09-21 11:27 | Discharge Summary ---
Discharge Summary Date of Service September 21, 2023 Admission HPI Per Admitting Provider History obtained from patient, family, and records. Medical history significant for chronic diastolic heart failure (EF 60%, TTE 2022), PSVT, PVD, hypertension, hyperlipidemia, bronchial asthma/bronchiectasis, pulmonary nodule status post surgery, GERD, hepatic steatosis, hypothyroidism, mood disorder, sleep disordered breathing as per records. Last confinement 2002 for pneumonitis/pericardial effusion with evidence of early signs of tamponade. Patient transferred to [facility]. 2 weeks history of junky cough symptoms. Transient headache symptoms from coughing. Not sure about sick contacts. Patient completed COVID-19 vaccination. Patient seen at the ER 3 days ago. Discharged on prednisone course for bronchitis. Worsening cough/SOB symptoms productive of yellow sputum at home. Coughing with meals/water intake as per . Chest pain from coughing. Poor appetite. Possible fluid retention/abdominal distention without pain as per patient. Patient returned to ER tonight. 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 Add Mucinex, Flonase nasal spray, Robitussin AC as needed. Follow-up with pulmonology as needed. chronic diastolic heart failure (EF 60%, TTE 2022), equivocal volume status -->held lasix in setting of SIRS resuscitation efforts, restart in am hx PSVT as per records-->small run of atrial tach noted x 5 beats on telemetry in setting of acute illness. PVD (aortic root dilatation/ascending aortic dilatation as per records)-->f/u cardiology hypertension, elevated secondary to illness --improved, restart home antihypertensives. hyperlipidemia on statin Rx-continue hx pulmonary nodule status post surgery--> continue outpatient monitoring. hypothyroidism, euthyroid as of recent outpatient TSH Steroid-induced hyperglycemia rule out DM --> A1c 6.2, follow-up with PCP to discuss further monitoring/treatment Hypokalemia secondary to home diuretic Rx decreased p.o. intake--> resolved after replacement Morbid obesity DVT prophylaxis. Heparin subcu Full code Disposition-transition off med telemetry at this time and plan for home in a.m. was at bedside and all plans and questions were answered. I spent a total [id number] coordinating, documenting, and providing care for this patient excluding time spent in the performance of separately billed services DO Reynaldo Candelario hHospitalist Discharge Exam CONSTITUTIONAL: obese, vitals as above, generally well-appearing, NAD EYES: normal conjunctivae, no scleral icterus ENT: external ear and nose normal, MMM NECK: trachea midline RESPIRATORY: clear to auscultation bilaterally, no crackles, rales or wheezes, normal respiratory effort CARDIOVASCULAR: regular rate and rhythm, S1 and 2 heard without murmurs, gallops or rubs, no JVD, no peripheral edema CHEST: inspection of chest was normal GASTROINTESTINAL: soft, nontender, ND, no guarding MUSCULOSKELETAL: strength 5/5 throughout, head is normocephalic and atraumatic SKIN: warm and dry NEUROLOGIC: CN 2-12 grossly intact, no sensory deficit, normal cognition, normal speech, no tremor PSYCHIATRIC: alert cooperative and oriented to person, place and time. Euthymic mood, makes good eye contact, language grossly intact, recent and remote memory grossly intact. Updated Medication List Medication Instructions Recorded Confirmed Type aspirin 81 mg tablet,delayed 81 mg PO QAM 05/08/19 09/20/23 History release atorvastatin 40 mg tablet 40 mg PO QAM 05/08/19 09/20/23 History cetirizine 10 mg tablet (Zyrtec) 10 mg PO QAM 05/08/19 09/20/23 History cholecalciferol (vitamin D3) 50 2,000 unit PO QAM 05/08/19 09/20/23 History mcg (2,000 unit) tablet (Vitamin D3) furosemide 40 mg tablet 60 mg PO QAM 05/08/19 09/20/23 History omega-3 fatty acids 500 mg capsule 500 mg PO QAM 05/08/19 09/20/23 History spironolactone 25 mg tablet 25 mg PO QAM 05/08/19 09/20/23 History vitamin E 268 mg (400 unit) capsule 400 unit PO QAM 05/08/19 09/20/23 History lisinopril 40 mg tablet 40 mg PO QAM 10/26/20 09/20/23 History meclizine 25 mg tablet 25 mg PO TID PRN Dizziness 03/23/21 09/20/23 History sumatriptan succinate 50 mg tablet 50 mg PO DAILY PRN Migraine 03/23/21 09/20/23 History (Imitrex) Headache amitriptyline 25 mg tablet 25 mg PO HS 06/21/21 09/20/23 History Flutter Valve #1 ea 08/02/21 09/20/23 Rx levothyroxine 125 mcg tablet 125 mcg PO DAILYBB 01/11/23 09/20/23 History pantoprazole 40 mg tablet,delayed 40 mg PO QAM 01/11/23 09/20/23 History release potassium chloride 10 mEq 10 meq PO DAILY 01/11/23 09/20/23 History tablet,extended release tizanidine 4 mg tablet 4 mg PO Q6H PRN Muscle Spasm 01/11/23 09/20/23 History azelastine 137 mcg (0.1 %) nasal 2 spray intranasal BID 05/22/23 09/20/23 History spray aerosol prednisone 20 mg tablet 20 mg PO BID 5 days #10 tabs 09/16/23 09/20/23 Rx albuterol sulfate 2.5 mg/3 mL 2.5 mg continuous nebulization Q4 09/20/23 09/20/23 History (0.083 %) solution for nebulization PRN Shortness Of Breath Or Wheezing albuterol sulfate 90 mcg/actuation 2 puff inhalation QID 09/20/23 09/20/23 History aerosol inhaler ipratropium 0.5 mg-albuterol 3 mg 3 ml inhalation QID 09/20/23 09/20/23 History (2.5 mg base)/3 mL nebulization soln mometasone-formoterol HFA 100 1 puff inhalation UD PRN Unknown 09/20/23 09/20/23 History mcg-5 mcg/actuation aerosol inhaler multivitamin with minerals 1 tab PO DAILY 09/20/23 09/20/23 History (Multiple Vitamin-Minerals tablet) azithromycin 250 mg tablet 250 mg PO QAM #4 tabs 09/21/23 Rx codeine 10 mg-guaifenesin 100 mg/5 10 ml PO Q6H PRN cough #120 mL 09/21/23 Rx mL oral liquid fluticasone propionate 50 2 spray ANNE DAILY #16 grams 09/21/23 Rx mcg/actuation nasal spray,suspension Hospital Stay Data Consultations 09/20/23 00:59 ED Decision to Admit Stat Diagnostic Imagining Performed 09/20/23 01:31 US abdomen ltd ascites Stat Pending Results Patient Have Any Pending Studies at Discharge: No Discharge Instructions Given to Patient (Per Discharging Provider) Please take all medications as instructed on medication list below. Please followup with your primary care provider at the date/time below to ensure your symptoms are resolved. You are being given mucinex, flonase and Robitussin with codeine cough syrup to use only as needed while symptoms persist. Please continue both azithromycin and prednisone for the next several days. Please followup with your PCP regarding fatty liver monitoring. Weight loss is strongly recommended to help with this as it the ability to cause inflammation and permanent liver damage in the future. It was a pleasure taking care of you! Please call if you have any questions or problems. You can reach a [facility] hospitalist on duty at [facility] 24 hours a day by calling [phone]. Take care of yourself. Ting Felix, [facility]
--- OUTSIDE RECORDS SUMMARY | 2023-09-26 01:40 | External Medical Summary | Summary of Care ---
Author Name Unknown Organization [facility] Address [address] [place] [address] Phone [phone] Care Team Providers Care Comptometrist Name Role Phone Farooq Rodrgíuez DO Primary Care Provider [phone] Reason for Visit * Reason Comments Pulmonary Function Test Spirogram with genet rivera Encounter Details Date Type Department Care Team Description 08/16/2023 PulmDiagnostic Pulmonary Function Lab, [facility] [address] [facility] [place] [address] [address], [address] [facility] [place] [address] Mild persistent asthma, unspecified whether complicated* Allergies No known active allergiesdocumented as of this encounter (statuses as of 08/16/2023) Medications Medication Sig Dispensed Refills Start Date End Date Status ASPIRIN 81 MG PO TABS One daily 0 Active ZYRTEC ALLERGY 10 MG PO TABS one daily 0 Active HM VITAMIN D3 2000 UNITS PO CAPSIndications:Christie min D deficiency 1 CAPSULE DAILY 0 03/22/2014 Act natasha albuterol (PROAIR HFA) 108 (90 BASE) MCG/ACT inhalerIndications:A cute bronchitis, antibiotics not indicated Inhale 2 Puffs by mouth 4 times a day. 1 Inhaler 1 08/30/2015 Active Mometasone Furo-Formoterol Fum 100-5 MCG/ACT Inhalation Aerosol Inhale 1 Puff by mouth as needed. 0 08/03/2016 Active Multiple Vitamins-Minerals (MENS MULTIPLE VITAMIN/LYCOPENE) TABS Take by mouth daily. 0 Active vitamin e (AQUASOL E) 400 UNIT Capsule Take 1 Capsule by mouth in the morning. 0 Active Brule-3 Fatty Acids (OMEGA 3 500) 500 MG CAPS Take by mouth. 0 Active Azelastine HCl 0.1 % nasal sprayIndications:Chr onic rhinitis USE 2 SPRAY(S) IN EACH NOSTRIL TWICE DAILY 90 mL 1 04/03/2019 Active Levothyroxine Sodium 125 MCG Oral Tablet (Levoxyl) Take by mouth 1 Tablet in the morning. (at least 30 min prior to breakfast or other meds) Repeat labs after 11/01. 30 Tablet 11 09/20/2022 Active Furosemide 40 MG Oral Tablet (Lasix) Take 1.5 Tablets by mouth in the morning. 135 Tablet 3 12/12/2022 Active Lisinopril 40 MG Oral TabletIndications:HT N, goal below 140/90 Take 1 Tablet by mouth in the morning. 90 Tablet 3 12/11/2022 Active SUMAtriptan Succinate 50 MG Oral Tablet (Imitrex) TAKE ONE TABLET BY MOUTH ONE TIME ONLY,REPEAT AFTER TWO HOURS NEEDED MAX OF FOUR TABLETS 30 Tablet 0 12/12/2022 Active Meclizine HCl 25 MG Oral Tablet (Antivert) Take 1 Tablet by mouth 3 times a day as needed for Dizziness. 270 Tablet 1 12/12/2022 Active tiZANidine HCl 4 MG Oral Tablet (Zanaflex)Indication s:Acute low back pain without sciatica, unspecified back pain laterality TAKE 1 TABLET BY MOUTH EVERY 6 HOURS NEEDED FOR MUSCLE SPASM 360 Tablet 0 12/12/2022 Active Ipratropium-Albutero l 0.5-2.5 (3) MG/3ML Inhalation Solution (Duoneb)Indications: Mild persistent asthma without complication Inhale 3 mL via nebulizer in the morning and 3 mL at noon and 3 mL in the evening and 3 mL before bedtime. 120 mL 5 01/16/2023 Active Amitriptyline HCl 25 MG Oral Tablet (Elavil)Indications: Migraine variant TAKE 1 TABLET AT BEDTIME 90 Tablet 1 03/19/2023 Active Potassium Chloride ER 10 MEQ Oral Tablet Extended ReleaseIndications:H TN, goal below 140/90 TAKE 1 TABLET DAILY 90 Tablet 3 04/12/2023 Active Atorvastatin Calcium 40 MG Oral Tablet (Lipitor)Indications :CAD (coronary artery disease) TAKE 1 TABLET DAILY 90 Tablet 2 06/08/2023 Active Spironolactone 25 MG Oral Tablet (Aldactone) TAKE 1 TABLET IN THE MORNING 90 Tablet 2 06/08/2023 Active Albuterol Sulfate (2.5 MG/3ML) 0.083% Inhalation Nebulization Solution (Proventil) Inhale via nebulizer every 4 hours as needed for shortness of breath or wheezing 1080 mL 0 2023 Active Pantoprazole Sodium 40 MG Oral Tablet Delayed Release (Protonix)Indication s:Gastroesophageal reflux disease without esophagitis TAKE 1 TABLET IN THE MORNING 90 Tablet 1 07/05/2023 Active Hospital, Clinic, or Other Facility Administered Medication Ordered Dose Route Frequency Start Date End Date Status Albuterol Sulfate (Proventil) (2.5 MG/3ML) 0.083% inhalation solution 2.5 mgIndications:Mild persistent asthma, unspecified whether complicated 2.5 mg NEBULIZER ONCE PRN 06/12/2023 06/11/2024 Active documented as of this encounter (statuses as of 08/16/2023) Active Problems Problem Noted Date Mild persistent asthma 06/12/2023 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 Chronic pain syndrome 12/06/2022 Body mass index (BMI) of 40.0 to 44.9 in adult 05/29/2022 Overview: Per Obesity protocol Chest pain with normal coronary angiogra phy 04/08/2021 Ascending aorta dilatation 12/01/2020 Chronic diastolic (congestive) heart kelly lure 12/01/2020 Bradycardia 05/31/2020 Dilated aortic root 12/11/2016 Dyslipidemia, goal LDL below 100 014 Neoplasm of uncertain behavior of skin 0 03/31/2014 Inflamed seborrheic keratosis 03/31/2014 Multiple pigmented nevi 03/31/2014 Edema 01/15/2013 Abnormal EKG 01/15/2013 Elevated liver enzymes 01/15/2013 Deviated nasal septum 01/07/2013 Recurrent sinusitis 01/07/2013 Sleep disorder breathing 01/07/2013 Snoring 01/07/2013 Overview: ICD-10 update of inactive term Subjective tinnitus 01/07/2013 Noise-induced hearing loss 01/07/2013 Acquired hypothyroidism 01/07/2013 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 Uvular hypertrophy 01/07/2013 Esophageal reflux 01/07/2013 HTN, goal below 140/90 11/20/2012 Beta-blockers contraindicated 08/07/2012 PILONIDAL CYST W-O ABSC 07/22/2004 Pericardial effusion 04/18/2003 documented as of this encounter (statuses as of 08/16/2023) Resolved Problems Problem Noted Date Resolved Date Encounter for surveillance of abnormal nevi 03/2004/29/2021 Bronchiectasis 04/18/2003 06/12/2017 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 02/10/2021 Pneumonia due to other virus not elsewhere class ified 12/24/2002 04/29/2021 documented as of this encounter (statuses as of 08/16/2023) Immunizations Name Administration Dates Next Due COVID-19 mRNA, LNP-s, No Pre serve, 2-Dose Series (August) 04/09/2021,03/19/2021 Pneumococcal Conjugate Vacc, 13 Valent (Prevnar) 08/19/2010 Pneumococcal Polysaccharide PPV23 (Pneumovax) 08/11/2015,08/19/2010 Seasonal Influenza, PF, 6 mo ns & Above, IM , (Flulaval) 08/13/2023 Seasonal Influenza, Quadriva lent, No Preserve, IM 08/18/2020,08/20/2019,08/03/2016 Seasonal Influenza, Split, I IV3, With Preserve, Inj 07/20/2018,08/03/2015,08/03/2014,08/06,08/14/2012,08/26/2009 TD, Preservative Free 10/27/2020 TDAP (age 11 and older)(Adacel) 09/13/2009 Zoster Vaccine Recombinant (Shingrix) 04/23/2019 ,02/17/2019 documented as of this encounter Social History Tobacco Use Types Packs/Day Years Used Date Smoking Tobacco: Never Smokeless Tobacco: Former Chew Quit: 04/21/2012 Tobacco Cessation:Counseling Given: Not Answered Comments:quit Alcohol Use Standard Drinks/Week Comments Yes 5 (1 standard drink = 0.6 oz pur e alcohol) Occ. Sex Assigned at Date Recorded Not on file Job Start Date Occupation Industry Not on file Not on file Not on file documented as of this encounter Last Filed Vital Signs Vital Sign Reading Time Taken Comments Blood Pressure - - Pulse - - Temperature 35.7 C (96.3 F) 08/16/2023 1 2:44 PM EDT Respiratory Rate - - Oxygen Saturation - - Inhaled Oxygen Concentration - - Weight 126.5 kg (278 lb 14.1 oz) 2022 12:44 PM EDT Height 166.4 cm (5' 5.51") 08/16/2023 1 2:44 PM EDT Body Mass Index 45.69 08/16/2023 12:44 PM EDT documented in this encounter Nursing Notes * Skip Campos RRT - 08/16/2023 1:06 PM EDT Placido Dean was identified by name, Date of : (1960), and . Vitals were obtained for testing. Body mass index is 45.69 kg/m. Pt does not have a smoking history. Pt is retired from [employer] and [employer] Spirometry performed before and after a slow volume nebulizer treatment of 0.5ml of albuterol in 3 ml of NSS. Administrations This Visit Albuterol Sulfate (Proventil) (2.5 MG/3ML) 0.083% inhalation solution 2.5 mg Admin Date 08/16/2023 Action Given Dose 2.5 mg Route Nebulizer Administered By Skip Campos RRT documented in this encounter Plan of Treatment Upcoming Encounters Date Type Specialty Care Team Description 09/26/2023 Office Visit Orthopedics Nima Cox, [address] [place] [address] 10/03/2023 Office Visit OrthopedicNima Rosas DO [address] [place] [address] 10/10/2023 Office Visit OrthopedicNima Rosas, [address] [place] [address] 12/03/2023 Office Visit Cardiology Kath Carlin PA-C [address] [place] [address] 01/02/2024 Office Visit Family Medicine Farooq Rodríguez, DO [address] [place] [address] Pending Results Name Type Priority Associated Diagnoses Date /Time SPIROMETRY B/A BRONCHODILATOR Procedures Routine Mild persistent asthma, unspecified whether complicated 08/16/2023 12:46 PM EDT Scheduled Procedures Name Priority Associated Diagnoses Date/Ti me COLONOSCOPY FLEXIBLE PROXIMA L DIAGNOSTIC Recall Encounter for screening colonoscopy Health Maintenance Due Date Last Done Comments Albumin/Creatinine Ratio 1980 Cologuard 2007 Fecal Occult Blood Test 2007 Sigmoidoscopy 2007 COVID-19 Vaccine (3 - Pfizer series) 06/04/2021 04/09/2021, 03/19/2021 Depression Screening 04/29/2022 04/29/2021 GFR 01/16/2024 01/16/2023, 08/21, 05/30/2022, Additional history exists TSH 01/16/2024 01/16/2023, 08/21, 05/30/2022, Additional history exists Colonoscopy 11/26/2025 11/26/2015, 06/2016, 11/29/2012, Additional history exists Colorectal Cancer Screening 11/26/2025 Diabetes Screening 01/16/2026 01/16/2023, 1 , 05/30/2022, Additional history exists Pneumococcal Vaccine: Pediatrics (0 to 5 Years) and At-Risk Patients (6 to 64 Years) (3 - PPSV23 or PCV20) 2027 08/11/2015, 08/19/2010, 08/19/2010 Lipid Panel 01/16/2028 01/16/2023, 0311/2021, 12/22/2020, Additional history exists DTaP,Tdap,and Td Vaccines (3 - Td or Tdap) 10/27/2030 10/27/2020, 09/13/2009 Zoster Vaccines Completed 04/23/2019, 02/17/2019 Influenza Vaccine (FLU shot) Completed , 09/01/2021, 09/02/2020, Additional history exists GARDASIL-HPV IMMUNIZATION SERIES Aged Out No longer eligible based on patient's age to complete this topic Hepatitis B Aged Out No longer eligi ble based on patient's age to complete this topic MENINGOCOCCAL (MENACTRA/MENVEO) Aged Out No longer eligible based on patient's age to complete this topic documented as of this encounter Medical Devices Implanted Type Area Bowling Ball Molder Device Identifier Shelf Expiration Date Model / Serial / Lot Envelope Tyrx Med Antibacteril - [id number] Implanted:Qty: 1 on 02/02/2023 by Bishop Jung MD at [facility] N/A: Spine Lumbar [employer] 08/21/2023 [id number] / / documented as of this encounter Procedures Procedure Name Priority Date/Time Associated Diagnosis Comments SPIROMETRY B/A BRONCHODILATOR Routine 08/16/2023 12:46 PM EDT Mild persistent asthma, unspecified whether complicated documented in this encounter Visit Diagnoses Diagnosis Mild persistent asthma, unspecified whether complicated- Primary documented in this encounter Administered Medications Active Administered Medications - up to 3 most recent administrations Medication Order MAR Action Action Date Dose Rate Site Albuterol Sulfate (Proventil) (2.5 MG/3ML) 0.083% inhalation solution 2.5 mg 2.5 mg, Nebulizer, ONCE PRN Other, Testing, Starting on Sun06/12/23 at 1356, Until Sun06/11/24 at 1355, For 365 days, Only one type of albuterol product should be administered (Nebulizer or Inhaler). Please select and document on the appropriate albuterol product order. Given 08/16/2023 12:43 PM EDT 2.5 mg documented in this encounter Care Teams Comptometrist Relationship Specialty Start Date End Date Farooq Rodríguez, [address] [place] [address] PCP - General Family Medicine 08/22/19 documented as of this encounter
--- OUTSIDE RECORDS SUMMARY | 2023-09-26 01:40 | External Medical Summary | Summary of Care ---
Author Name Unknown Organization [facility] Address [address] [facility] [address] Phone [phone] Care Team Providers Care Truck Driver Flatbed Name Role Phone Farooq Rodríguez DO Primary Care Provider [phone] Reason for Referral * Evaluate & Treat - Unlimited Visits (Within 10 days (routine)) - Pending Review Specialty Diagnoses / Procedures Referred By Marlon lim Referred To Contact Dermatology Diagnoses Facial lesion Lore Chaudhary PA-C [address] [place] [address] Referral ID Status Reason Start Date Expiration Date Visits Requested Visits Authorized [id number] Pending Review Specialty Services Required 3 [phone] Question Answer Referral Priority Within 10 days (routine) Where should this appointment be scheduled? [facility] Are you referring the patient for Mohs Surgery and have a current positive skin cancer biopsy result? No What is the reason for the patient referral? Rash/Skin Check/Eval of Lesion or Mole Comments Facial lesion, see picture in epic Reason for Visit * Reason Comments Acute Suspicious moles and bumps. Encounter Details Date Type Department Care Team Description 09/05/2023 Office Visit Family Practice [facility] [address] [place] [address] Lore Chaudhary PA-C [address] [place] [address] [address] Facial lesion*; Seborrheic keratosis Allergies No known active allergiesdocumented as of this encounter (statuses as of 09/05/2023) Medications Medication Sig Dispensed Refills Start Date [...] by mouth in the morning. 0 Active Manteca-3 Fatty Acids (OMEGA 3 500) 500 MG [...] before bedtime. 120 mL 5 01/16/2023 Active Potassium Chloride ER 10 MEQ Oral [...] THE MORNING 90 Tablet 1 07/05/2023 Active Amitriptyline HCl 25 MG Oral Tablet (Elavil)Indications: Migraine variant TAKE 1 TABLET AT BEDTIME 90 Tablet 3 08/23/2023 Active Hospital, Clinic, or Other Facility Administered Medication Ordered Dose Route Frequency Start Date End Date Status Albuterol Sulfate (Proventil) (2.5 MG/3ML) 0.083% inhalation solution 2.5 mgIndications:Mild persistent asthma, unspecified whether complicated 2.5 mg NEBULIZER ONCE PRN 06/12/2023 06/11/2024 Active documented as of this encounter (statuses as of 09/05/2023) Active Problems Problem Noted Date Mild persistent [...] as of this encounter (statuses as of 09/05/2023) Resolved Problems Problem Noted Date Resolved Date Encounter for surveillance of abnormal nevi 03/2004/29/2021 Bronchiectasis 04/18/2003 06/12/2017 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 Pneumonia due to other virus not elsewhere class ified 12/24/2002 04/29/2021 documented as of this encounter (statuses as of 09/05/2023) Immunizations Name Administration Dates Next Due COVID-19 mRNA, LNP-s, No Pre serve, 2-Dose Series (Zignals) 04/09/2021,03/19/2021 Pneumococcal Conjugate Vacc, 13 Valent (Prevnar) 08/19/2010 Pneumococcal Polysaccharide PPV23 (Pneumovax) 08/11/2015,08/19/2010 SEASONAL INFLUENZA, PF, 6 M & Above, IM , (FLULAVAL or FLUZONE) 08/13/2023 Seasonal Influenza Virus Vac cine, Unspecified Formulation 09/02/2020,08/18/2020,08/20/2019,08/21,07/20/2018,08/16/2017,08/10/2016 ,08/03/2016,08/11/2015,08/03/2015,07/20,08/06/2013,08/14/2012, 1,08/26/2009,09/03/2003,10/15/2002 Seasonal Influenza, Quadriva lent, No Preserve, IM 08/18/2020,08/20/2019,08/03/2016 Seasonal Influenza, Recombin ant, RIV4, PF, (Flublock) 09/01/2021,09/02/2020,08/20/2019 Seasonal Influenza, Split, I IV3, With Preserve, Inj 07/20/2018,08/03/2015,08/03/2014,08/06,08/14/2012,08/26/2009 TD, Preservative Free 10/27/2020 TDAP (age 11 and older)(Adacel) 09/13/2009 Zoster Vaccine Recombinant (Shingrix) 04/23/2019 ,02/17/2019 documented as of this encounter Social History Tobacco Use Types Packs/Day Years Used Date Smoking Tobacco: Never Smokeless Tobacco: Former Chew Quit: 04/21/2012 Comments:quit Alcohol Use Standard Drinks/Week Comments Yes 5 (1 standard drink = 0.6 oz pur e alcohol) Occ. Sex Assigned at Date Recorded Not on file Job Start Date Occupation Industry Not on file Not on file Not on file documented as of this encounter Last Filed Vital Signs Vital Sign Reading Time Taken Comments Blood Pressure 122/80 09/05/2023 12:31 PM EDT Pulse 95 09/05/2023 12:31 PM EDT Temperature 36.7 C (98.1 F) 09/05/2023 1 2:31 PM EDT Respiratory Rate 16 09/05/2023 12:3 1 PM EDT Oxygen Saturation 99% 09/05/2023 12: 31 PM EDT Inhaled Oxygen Concentration - - Weight 126.6 kg (279 lb 1.9 oz) 023 12:31 PM EDT Height 166.4 cm (5' 5.51") 09/05/2023 1 2:31 PM EDT Body Mass Index 45.73 09/05/2023 12:31 PM EDT documented in this encounter Progress Notes * Lore Chaudhary PA-C - 09/05/2023 3:27 PM EDT Images from the original note were not included. Subjective Placido Dean is a 63 year old male that presents for Acute (Suspicious moles and bumps. ) 63 yo male presents for skin evaluation. Pt has a few moles that he would like to be checked for. He also has a spot on his face that is growing a lot, and he is worried about. He has no hx of skin cancer. Lesions are brown, rough, and itchy on his back, arm. Lesion on his face is round, raised. Nobleeding. Otherwise denies fevers, chills, chest pain, SOB, nausea, vomiting, diarrhea. Objective BP 122/80 | Pulse 95 | Temp 36.7 C (98.1 F) (Tympanic) | Resp 16 | Ht 1.664 m (5' 5.51") | Wt 126.6 kg (279 lb 1.9 oz) | SpO2 99% | BMI 45.73 kg/m | BSA 2.42 m Body mass index is 45.73 kg/m. BP Readings from Last 3 Encounters: 09/05/23 122/80 06/12/23 136/80 05/28/23 140/86 Wt Readings from Last 3 Encounters: 09/05/23 126.6 kg (279 lb 1.9 oz) 08/16/23 126.5 kg (278 lb 14.1 oz) 06/12/23 128.4 kg (283 lb) Physical Exam Vitals and nursing note reviewed. Constitutional: General: He is not in acute distress. Appearance: Normal appearance. HENT: Head: Normocephalic and atraumatic. Eyes: General: No scleral icterus. Extraocular Movements: Extraocular movements intact. Conjunctiva/sclera: Conjunctivae normal. Pupils: Pupils are equal, round, and reactive to light. Cardiovascular: Rate and Rhythm: Normal rate. Pulmonary: Effort: Pulmonary effort is normal. Musculoskeletal: Cervical back: Neck supple. Skin: General: Skin is warm and dry. Comments: See photos for lesions. Neurological: General: No focal deficit present. Mental Status: He is alert and oriented to person, place, and time. Psychiatric: Mood and Affect: Mood normal. Behavior: Behavior normal. Assessment and plan 1. Facial lesion -facial lesion to derm for biopsy - DERMATOLOGY REFERRAL OP 2. Seborrheic keratosis -other lesions appear to be seborrheic keratosis -will set up appt for biopsy in the clinic Follow up Follow-up: Return if symptoms worsen or fail to improve. | Check-out note: Schedule 40 min procedure for skin biopsy x 2 Schedule with dermatology Total time today including reviewing chart before the visit, pertinent labs, imaging reports, face to face time, and documentation time was 20 minutes. The above was discussed and understanding was expressed. Lore Chaudhary PA-C documented in this encounter Nursing Notes * Alice Worrell LPN - 09/05/2023 12:31 PM EDT Patient presents today for a bunch of moles checked out. He would also like to get a referral to dermatology. documented in this encounter Plan of Treatment Upcoming Encounters Date Type Specialty Care Team Description 09/18/2023 Office Visit [facility] [address] [facility] [address] 09/26/2023 Office Visit Orthopedics Nima Cox, [address] [place] [address] 10/03/2023 Office Visit Orthopedics Nima Cox DO [address] [place] [address] 10/10/2023 Office Visit Orthopedics Nima Cox, [address] [place] [address] 12/03/2023 Office Visit Cardiology Kath Carlin PA-C [address] [place] [address] 01/02/2024 Office Visit Family Medicine Farooq Rodríguez, DO [address] [place] [address] 01/29/2024 Office Visit Dermatology Yusra Chadwick PA-C [address] [place] [address] [place] [address] Scheduled Procedures Name Priority Associated Diagnoses Date/Ti me COLONOSCOPY FLEXIBLE PROXIMA L DIAGNOSTIC Recall Encounter for screening colonoscopy Scheduled Referrals Name Type Priority Associated Diagnoses Orde r Schedule DERMATOLOGY REFERRAL OP Referral Within 10 days (routine) Facial lesion Ordered: 09/05/2023 Health Maintenance Due Date Last Done Comments Albumin/Creatinine Ratio 1980 Cologuard 2007 Fecal Occult Blood Test 2007 Sigmoidoscopy 2007 Depression Screening 04/29/2022 04/29/2021 COVID-19 Vaccine ( season) 2023 04/09/2021, 03/19/2021 GFR 01/16/2024 01/16/2023, 08/21, 05/30/2022, Additional history [...] 08/11/2015, 08/19/2010, 08/19/2010 Lipid Panel 01/16/2028 01/16/2023, 11/2021, 12/22/2020, Additional history exists DTaP,Tdap,and Td Vaccines [...] this encounter Medical Devices Implanted Type Area Tank Refinisher Device Identifier Shelf Expiration Date Model / Serial / Lot Envelope Tyrx Med Antibacteril - [id number] Implanted:Qty: 1 on 02/02/2023 by [facility] N/A: Spine Lumbar [employer] 08/21/2023 [id number] / / documented as of this encounter Visit Diagnoses Diagnosis Facial lesion- Primary Unspecified disorder of skin and subcutaneous tissue Seborrheic keratosis Other seborrheic keratosis documented in this encounter Care Teams Truck Driver Flatbed Relationship Specialty Start Date End Date Farooq Rodríguez, DO [address] [facility] [place], [place] [address] PCP - General Family Medicine 08/22/19 documented as of this encounter
--- OUTSIDE RECORDS SUMMARY | 2023-09-26 01:40 | External Medical Summary | Summary of Care ---
Author Name Unknown Organization [facility] Address [address] [place] [address] Phone [phone] Care Team Providers Care Trimming Operator Name Role Phone Kelly Mitchell DO Primary Care Provider [phone] Reason for Visit * Reason Comments eRx-Medication Refill Encounter Details Date Type Department Care Team Description 08/23/2023 Refill Family Practice [facility] [address] [place] [address] Kelly Mitchell DO [address] [place] [address] Migraine variant Allergies No known active allergiesdocumented as of this encounter (statuses as of 08/23/2023) Medications Medication Sig Dispensed Refills Start Date End Date Status ASPIRIN 81 MG PO TABS One daily 0 Active ZYRTEC ALLERGY 10 MG PO TABS one daily 0 Active HM VITAMIN D3 2000 UNITS PO CAPSIndications:Vi tamin D deficiency 1 CAPSULE DAILY 0 03/22/2014 Active albuterol (PROAIR HFA) 108 (90 BASE) MCG/ACT inhalerIndications :Acute bronchitis, antibiotics not indicated Inhale 2 Puffs [...] by mouth in the morning. 0 Active Boley-3 Fatty Acids (OMEGA 3 500) 500 MG CAPS Take by mouth. 0 Acti ve Azelastine HCl 0.1 % nasal sprayIndications:C hronic rhinitis USE 2 SPRAY(S) IN EACH NOSTRIL [...] 3 12/12/2022 Active Lisinopril 40 MG Oral TabletIndications: HTN, goal below 140/90 Take 1 Tablet by [...] Active tiZANidine HCl 4 MG Oral Tablet (Zanaflex)Indicati ons:Acute low back pain without sciatica, unspecified back pain laterality TAKE 1 TABLET BY MOUTH EVERY 6 HOURS NEEDED FOR MUSCLE SPASM 360 Tablet 0 12/12/2022 Active Ipratropium-Albute rol 0.5-2.5 (3) MG/3ML Inhalation Solution (Duoneb)Indication s:Mild persistent asthma without complication Inhale 3 mL via nebulizer in the morning and 3 mL at noon and 3 mL in the evening and 3 mL before bedtime. 120 mL 5 01/16/2023 Active Potassium Chloride ER 10 MEQ Oral Tablet Extended ReleaseIndications :HTN, goal below 140/90 TAKE 1 TABLET DAILY 90 Tablet 3 04/12/2023 Active Atorvastatin Calcium 40 MG Oral Tablet (Lipitor)Indicatio ns:CAD (coronary artery disease) TAKE 1 TABLET DAILY [...] Sodium 40 MG Oral Tablet Delayed Release (Protonix)Indicati ons:Gastroesophage al reflux disease without esophagitis TAKE 1 TABLET IN THE MORNING 90 Tablet 1 07/05/2023 Active Amitriptyline HCl 25 MG Oral Tablet (Elavil)Indication s:Migraine variant TAKE 1 TABLET AT BEDTIME 90 Tablet 3 08/23/2023 Active Amitriptyline HCl 25 MG Oral Tablet (Elavil)Indication s:Migraine variant TAKE 1 TABLET AT BEDTIME 90 Tablet 1 03/19/2023 Discontinued Hospital, Clinic, or Other Facility Administered Medication Ordered Dose Route Frequency Start Date End Date Status Albuterol Sulfate (Proventil) (2.5 MG/3ML) 0.083% inhalation solution 2.5 mgIndications:Mild persistent asthma, unspecified whether complicated 2.5 mg NEBULIZER ONCE PRN 06/12/2023 06/11/2024 Active documented as of this encounter (statuses as of 08/23/2023) Active Problems Problem Noted Date Mild persistent [...] as of this encounter (statuses as of 08/23/2023) Resolved Problems Problem Noted Date Resolved Date Encounter for surveillance of abnormal nevi 03/2004/29/2021 Bronchiectasis 04/18/2003 06/12/2017 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 Pneumonia due to other virus not elsewhere class ified 12/24/2002 04/29/2021 documented as of this encounter (statuses as of 08/23/2023) Immunizations Name Administration Dates Next Due COVID-19 mRNA, LNP-s, No Pre serve, 2-Dose Series (Pfizer) 04/09/2021,03/19/2021 Pneumococcal Conjugate Vacc, 13 Valent (Prevnar) 08/19/2010 Pneumococcal Polysaccharide PPV23 (Pneumovax) 08/11/2015,08/19/2010 SEASONAL INFLUENZA, PF, 6 M & Above, IM , (FLULAVAL or FLUZONE) 08/13/2023 Seasonal Influenza, Quadriva lent, No Preserve, [...] on file documented as of this encounter Miscellaneous Notes * Telephone Encounter - Tien Zhu RPh - 08/23/2023 3:08 PM EDT Signed Prescriptions: Disp Refills Amitriptyline HCl 25 MG Oral Tablet (Elavi*90 Tab*3 Sig: TAKE 1 TABLET AT BEDTIMEAuthorizing Provider: KELLY MITCHELL User: TIEN ZHU------- documented in this encounter Plan of Treatment Upcoming Encounters Date Type Specialty Care Team Description 09/26/2023 Office Visit Orthopedics Nima Cox DO [address] [place] [address] 10/03/2023 Office Visit Orthopedics Nima Cox DO [address] [place] [address] 10/10/2023 Office Visit Orthopedics Nima Cox DO [address] [place] [address] 12/03/2023 Office Visit Cardiology Kath Carlin PA-C [address] [place] [address] 01/02/2024 Office Visit Family Medicine Kelly Mitchell DO [address] [place] [address] Scheduled Procedures Name Priority Associated Diagnoses Date/Ti [...] 08/11/2015, 08/19/2010, 08/19/2010 Lipid Panel 01/16/2028 01/16/2023, 03/11/2021, 12/22/2020, Additional history exists DTaP,Tdap,and Td Vaccines [...] this encounter Medical Devices Implanted Type Area Compensation Vice President Device Identifier Shelf Expiration Date Model / Serial / Lot Envelope Tyrx Med Antibacteril - [id number] Implanted:Qty: 1 on 02/02/2023 by Bishop Jung MD at OR [facility] N/A: Spine Lumbar [employer] 08/21/2023 [id number] / / documented as of this encounter Visit Diagnoses Diagnosis Migraine variant Variants of migraine, not elsewhere classified, without mention of intractable migraine without mention of status migrainosus documented in this encounter Care Teams Trimming Operator Relationship Specialty Start Date End Date Kelly Mitchell, DO [address] [place] [address] PCP - General Family Medicine 08/22/19 documented as of this encounter
--- OUTSIDE RECORDS SUMMARY | 2023-09-26 01:41 | External Medical Summary | Summary of Care ---
Author Name Unknown Organization [facility] Address [address] [facility] [place] [address] Phone [phone] Care Team Providers Care Training Engineer Name Role Phone Farooq Rodríguez DO Primary Care Provider [phone] Reason for Visit * Reason Comments Back Pain Encounter Details Date Type Department Care Team Description 08/03/2023 Office Visit [facility] [address] [place] [address] Rosa Bolton PA-C [address] [place] [address] Myofascial muscle pain*; S/P insertion of spinal cord stimulator Allergies No known active allergiesdocumented as of this encounter (statuses as of 08/03/2023) Medications Medication Sig Dispensed Refills Start Date [...] by mouth in the morning. 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 02/10/2021 Pneumonia due to other virus not elsewhere class ified 12/24/2002 04/29/2021 documented as of this encounter (statuses as of 08/03/2023) Immunizations Name Administration Dates Next Due COVID-19 mRNA, LNP-s, No Pre serve, 2-Dose Series (Vennli) 04/09/2021,03/19/2021 Pneumococcal Conjugate Vacc, 13 Valent (Prevnar) 08/19/2010 Pneumococcal Polysaccharide PPV23 (Pneumovax) 08/19/2010 Seasonal Influenza, Quadriva lent, No Preserve, IM [...] on file documented as of this encounter Progress Notes * Rosa Bolton PA-C - 08/03/2023 10:54 AM EDT Name: Placido Dean Date: 08/03/2023 HPI: Placido Dean is a 63 year old male known to the Pain Management clinic presents for follow up due to acute R low back pain. Started two weeks ago after attending youth football game. He didbring a padded chair, but questions if the seat aggravated pain. Most recently followed with pain management at [facility] - SCS implant 02/02/23 (Medtronic) with Dr. Jung. SCS is turned on, continues to pro vide coverage of B LE. Locates pain R low back, just below SCS generator. Rates pain 1/10 today, can increase to 5/10 and is intermittent in nature. Described as sharp. Baseline weakness B LE, using cane to ambulate. Denies radicular pain into groin, abdomen or LE. Denies LE paresthesia. Denies bowel/bladder dysfunction.Aggravated by transitional movement. Unable to provide specific alleviating factors. Using tizanidine for pain relief. 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 Pericardial effusion 01/17/2003 idiopathic, [place] [facility] Pilonidal cyst without infection Past Surgical History: Procedure Laterality Date BRONCHOSCOPY W/ BRONCHIAL BIOPSY 11/19/2002 biopsy, open and bronchoscopy COLONOSCOPY, DIAGNOSTIC (RECTUM) 11/29/2012 COLONOSCOPY FLEXIBLE PROXIMAL DIAGNOSTIC performed by Cristy Dobbs DO at ENDOSCOPY [facility] COLONOSCOPY, DIAGNOSTIC (RECTUM) 11/26/2015 diverticulosis, repeat 10 yrs/COLONOSCOPY FLEXIBLE PROXIMAL DIAGNOSTIC performed by Cristy Dobbs DO at ENDOSCOPY [facility] DENTAL SURGERY PROCEDURE NEC Dental Surgery Procedure DRAINAGE OF HEART SAC 11/19/2002 [facility] EVAL NEUROSTIM PULSE GEN, W/ REPROGRAM N/A 02/02/2023 NEUROSTIMULATOR PULSE GENERATOR/ TRANSMITTER, WITH INTRAOPERATIVE OR SUBSEQUENT PROGRAMMING performed by Bishop Jung MD at OR [facility] IMPLANT EPIDURAL NEUROELECTRODES N/A 02/02/2023 PERCUTANEOUS IMPLANTATION NEUROSTIMULATOR EPIDURAL performed by Bishop Jung MD at OR [facility] IMPLANT SPINAL NEURORECEIVER N/A 02/02/2023 INSERTION OR REPLACEMENT SPINAL NEUROSTIMULATOR GENERATOR performed by Bishop Jung MD atOR [facility] INFORMATION 03/2021 Heart Cath. REMOVAL OF WRIST LESION Current Outpatient Medications Medication Sig Dispense Refill ASPIRIN 81 MG PO TABS One daily ZYRTEC ALLERGY 10 MG PO TABS one daily HM VITAMIN D3 2000 UNITS PO CAPS 1 CAPSULE DAILY albuterol (PROAIR HFA) 108 (90 BASE) MCG/ACT inhaler Inhale 2 Puffs by mouth 4 times a day. 1 Inhaler 1 Mometasone Furo-Formoterol Fum 100-5 MCG/ACT Inhalation Aerosol Inhale 1 Puff by mouth as needed. Multiple Vitamins-Minerals (MENS MULTIPLE VITAMIN/LYCOPENE) TABS Take by mouth daily. vitamin e (AQUASOL E) 400 UNIT Capsule Take 1 Capsule by mouth in the morning. [place]-3 Fatty Acids (OMEGA 3 500) 500 MG CAPS Take by mouth. Azelastine HCl 0.1 % nasal spray USE 2 SPRAY(S) IN EACH NOSTRIL TWICE DAILY 90 mL 1 Levothyroxine Sodium 125 MCG Oral Tablet (Levoxyl) Take by mouth 1 Tablet in the morning. (at least30 min prior to breakfast or other meds) Repeat labs after 11/01. 30 Tablet 11 Furosemide 40 MG Oral Tablet (Lasix) Take 1.5 Tablets by mouth in the morning. 135 Tablet 3 Lisinopril 40 MG Oral Tablet Take 1 Tablet by mouth in the morning. 90 Tablet 3 SUMAtriptan Succinate 50 MG Oral Tablet (Imitrex) TAKE ONE TABLET BY MOUTH ONE TIME ONLY,REPEAT AFTER TWO HOURS NEEDED MAX OF FOUR TABLETS 30 Tablet 0 Meclizine HCl 25 MG Oral Tablet (Antivert) Take 1 Tablet by mouth 3 times a day as needed for Dizziness. 270 Tablet 1 tiZANidine HCl 4 MG Oral Tablet (Zanaflex) TAKE 1 TABLET BY MOUTH EVERY 6 HOURS NEEDED FOR MUSCLE SPASM 360 Tablet 0 Ipratropium-Albuterol 0.5-2.5 (3) MG/3ML Inhalation Solution (Duoneb) Inhale 3 mL via nebulizer in the morning and 3 mL at noon and 3 mL in the evening and 3 mL before bedtime. 120 mL 5 Amitriptyline HCl 25 MG Oral Tablet (Elavil) TAKE 1 TABLET AT BEDTIME 90 Tablet 1 Potassium Chloride ER 10 MEQ Oral Tablet Extended Release TAKE 1 TABLET DAILY 90 Tablet 3 Atorvastatin Calcium 40 MG Oral Tablet (Lipitor) TAKE 1 TABLET DAILY 90 Tablet 2 Spironolactone 25 MG Oral Tablet (Aldactone) TAKE 1 TABLET IN THE MORNING 90 Tablet 2 Albuterol Sulfate (2.5 MG/3ML) 0.083% Inhalation Nebulization Solution (Proventil) Inhale via nebulizer every 4 hours as needed for shortness of breath or wheezing 1080 mL 0 Pantoprazole Sodium 40 MG Oral Tablet Delayed Release (Protonix) TAKE 1 TABLET IN THE MORNING 90 Tablet 1 Current Facility-Administered Medications Medication Dose Route Frequency Provider Last Rate Last Admin Albuterol Sulfate (Proventil) (2.5 MG/3ML) 0.083% inhalation solution 2.5 mg 2.5 mg Nebulizer Once PRN Farooq Rodríguez DO Review of patient's allergies indicates: No Known Allergies ROS: CONSTITUTIONAL: Denies anorexia, weight loss, fever, night sweats. RESPIRATORY: Denies shortness of breath, wheezing, productive cough. CARDIOVASCULAR: Denies chest pains, irregular heartbeat. HEME: Denies easy bruising and anticoagulation use. ROS EXAM: Remainder of ROS negative as discussed above in the HPI. PHYSICAL EXAM: There were no vitals taken for this visit. GENERAL: WD/WN male who is awake and alert. Does not appear to be in acute distress. MENTAL STATUS: Oriented x 3. Pleasant and cooperative with normal affect. LUMBAR SPINE: No gross abnormalities. Skin is intact with well healed surgical scar. No erythema, edema. No lesions visualized. Mild TTP inferior and medial to SCS generator. Unable to reproduce painwith palpation of SCS edges. Mild sacroiliac joint tenderness on R. Limited active ROM with flexionand extension of the lumbar spine. STRENGTH: 5/5 in all major motor groups lower extremities bilaterally. SENSATION: Not formally tested. No gross sensory deficits lower extremities bilaterally. GAIT/COORDINATION: Gait is intact. Ambulates with assistance. ASSESSMENT: Acute R low back pain S/P SCS implant RECOMMENDATION: Will continue conservative care, appears myofascial. Add voltaren gel. Consider L spine imaging if pain persists, appears unlikely that SCS has changed positions - continues to provide significant pain/paresthesia coverage Alysa PEARSON spent a total of 20-29 minutes (exact time 22 mins) on the date of service in preparation, delivery, and documentation of the care provided to Placido Dean excluding any time spent in the performance of separately billed services. Rosa Bolton PA-C 08/03/2023 documented in this encounter Nursing Notes * Elizabeth King LPN - 08/03/2023 10:55 AM EDT Patient presents with right low back pain x2wks, not painful today but was 5/10 yesterday No new imaging Unsure when he last talked with stim rep-states it's been working well documented in this encounter Plan of Treatment Upcoming Encounters Date Type Specialty Care Team Description 08/13/2023 Office Visit Orthopedics Nima oCx, [address] [place] [address] 08/16/2023 PulmDiagnostic Pulmonary Function [facility], [facility] [address] [place] [address] 12/03/2023 Office Visit Cardiology Kath Carlin PA-C [address] [place] [address] 01/02/2024 Office Visit Family Medicine Farooq Rodríguez DO [address] [place] [address] Scheduled Procedures Name Priority Associated Diagnoses Date/Ti me COLONOSCOPY FLEXIBLE PROXIMA L DIAGNOSTIC Recall Encounter for screening colonoscopy Health Maintenance Due Date Last Done Comments Albumin/Creatinine Ratio 1980 Cologuard 2007 Fecal Occult Blood Test 2007 Sigmoidoscopy 2007 COVID-19 Vaccine (3 - Pfizer series) 06/04/2021 04/09/2021, 03/19/2021 Depression Screening 04/29/2022 04/29/2021 Influenza Vaccine (FLU shot) (#1) 2023 09/01/2021, 09/02/2020, 09/02/2020, Additional history exists GFR 01/16/2024 01/16/2023, 08/21, 05/30/2022, Additional history exists TSH 01/16/2024 01/16/2023, 08/21, 05/30/2022, Additional history exists Colonoscopy 11/26/2025 11/26/2015, 06/2016, 11/29/2012, Additional history exists Colorectal Cancer Screening 11/26/2025 Diabetes Screening 01/16/2026 01/16/2023, 1 , 05/30/2022, Additional history exists Pneumococcal Vaccine: Pediatrics (0 to 5 Years) and At-Risk Patients (6 to 64 Years) (3 - PPSV23 or PCV20) 2027 08/19/2010, 08/19/2010 Lipid Panel 01/16/2028 01/16/2023, 03/11/2021, 12/22/2020, Additional history exists DTaP,Tdap,and Td Vaccines (3 - Td or Tdap) 10/27/2030 10/27/2020, 09/13/2009 Zoster Vaccines Completed 04/23/2019, 02/17/2019 GARDASIL-HPV IMMUNIZATION SERIES Aged Out No longer eligible based on patient's age to complete this topic Hepatitis B Aged Out No longer eligi ble based on patient's age to complete this topic MENINGOCOCCAL (MENACTRA/MENVEO) Aged Out No longer eligible based on patient's age to complete this topic documented as of this encounter Medical Devices Implanted Type Area Oceanology Teacher Device Identifier Shelf Expiration Date Model / Serial / Lot Envelope Tyrx Med Antibacteril - [id number] Implanted:Qty: 1 on 02/02/2023 by Bishop Jung MD at OR [facility] N/A: Spine Lumbar [facility] [employer] 08/21/2023 [id number] / / documented as of this encounter Visit Diagnoses Diagnosis Myofascial muscle pain- Primary Mylagia and myositis, unspecified S/P insertion of spinal cord stimulator documented in this encounter Care Teams Training Engineer Relationship Specialty Start Date End Date Farooq Rodríguez, DO [address] [place] [address] PCP - General Family Medicine 08/22/19 documented as of this encounter
--- OUTSIDE RECORDS SUMMARY | 2023-09-26 01:41 | External Medical Summary | Summary of Care ---
Author Name Unknown Organization [facility] Address [address] [facility] [place] [address] Phone [phone] Care Team Providers Care Manager Environmental Services Name Role Phone Farooq Rodríguez DO Primary Care Provider [phone] Reason for Visit * Reason Comments Knee Pain Left Encounter Details Date Type Department Care Team Description 08/13/2023 Office Visit Orthopaedics [facility] [address] [facility] [place] [address] Nima Cox DO [address] [facility] [place] [address] Primary osteoarthritis of left knee* Allergies No known active allergiesdocumented as of this encounter (statuses as of 08/13/2023) Medications Medication Sig Dispensed Refills Start Date [...] by mouth in the morning. 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 02/10/2021 Pneumonia due to other virus not elsewhere class ified 12/24/2002 04/29/2021 documented as of this encounter (statuses as of 08/13/2023) Immunizations Name Administration Dates Next Due COVID-19 mRNA, LNP-s, No Pre serve, 2-Dose Series (Pfizer) 04/09/2021,03/19/2021 Pneumococcal Conjugate Vacc, 13 Valent (Prevnar) 08/19/2010 Pneumococcal Polysaccharide PPV23 (Pneumovax) 08/11/2015,08/19/2010 Seasonal Influenza, Quadriva lent, No Preserve, IM [...] as of this encounter Progress Notes * Nima Cox, DO - 08/13/2023 3:15 PM EDT Placido Dean [id number] Placido Dean is a 63 year old male who presents for f/u to [facility] Sports Medicine for b/l knee pain Placido Dean is here with Date of Injury: no injury, pain since 2020 History: young had IA steroids in 2021, had Gelsyn series completed 10/03/22 and felt these lasted 6+ months Formal physical therapy YES in the past TODAY: would like to do steroids today given pain , and get process for Gelsyn started Previous knee injuries include: -no previous knee injuries or surgeries ROS EXAM:Constitional: No change in weight, No weakness, No fatigue and No fevers, sweats, or chills Past Medical History: Diagnosis Date Arthritis Asthma Bronchiectasis (HCC) CHF (congestive heart failure) (HCC) Depression GERD (gastroesophageal reflux disease) HLD (hyperlipidemia) HTN (hypertension) Hypothyroidism Lumbar radiculopathy Migraines Paralysis (HCC) 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 [place]-3 Fatty Acids (OMEGA 3 500) 500 MG [...] mg Nebulizer Once PRN Farooq Rodríguez DO Physical Exam General: in no acute distress Mood and Affect: normal Gait and Station: mildly antalgic Knee Exam, bilateral Alignment: normal Bilateral Effusion: negative Bilateral Palpation: tenderness to palpation medial > lateral jt line on the left ROM: R - Flexion - 110 degrees, Extension - 0 degrees L - Flexion - 110 degrees, Extension -0 degrees R- Strength: Extension - 5/5 Flexion - 5/5 L - Strength: Extension - 5/5 Flexion - 5/5 Popliteal mass - negative Bilateral Radiology 02/28/22 reviewed by me: xrays b/l knees Mild degenerative changes within the medial compartment reflected as mild joint space narrowing. Mild patellofemoral degenerative changes. Assessment and Plan: Primary osteoarthritis of left knee (Primary) - lidocaine 1% 1 mL - triamcinolone acetonide 40 mg/mL 1 mL inj 2 mL - INJECT MAJOR JX/BURSA W/O US GUIDE Check-out note: 6 week f/u Gelsyn series book all 3 appointment Nima Cox DO Primary Care Sports Medicine Orthopaedics [facility] [address] [place] [address] Procedure note (knee injection), left : Time out: Prior to injection, a time out was called to confirm the administration of appropriate medicine, patient name, procedure and confirm to the best of our ability and knowledge the presence of any necessary risks and benefits. Patient verbalizes understanding. proper approach defined Sterile techinique applied. Skin sterilized with alcohol swab. Knee injected using 1.5 inch, 22 gauge needle. Injected with lidocaine 1% 1 mL - triamcinolone acetonide 40 mg/mL 1 mL inj 2 mLPatient tolerated procedure with no significant bleeding or adverse reaction. Patient instructed to call or return to clinic for fever or warmth and redness at injection site for potential infection. Patient also advised as to potential for steroid flare reaction including increased pain and redness at injection site which should be treated with ice and resolve within 24 hours. Nima Cox DO documented in this encounter Nursing Notes * Tika Knox LPN - 08/13/2023 3:02 PM EDT Left knee pain chronic documented in this encounter Plan of Treatment Upcoming Encounters Date Type Specialty Care Team Description 08/13/2023 Immunization Ancillary Dianne, Flu Shot [facility] [address] [employer] [place] [id number] Arrived 08/16/2023 PulmDiagnostic Pulmonary Function [facility], [facility] [address] [place] [address] 09/26/2023 Office Visit Orthopedics Nima Cox, DO [address] [place] [address] 10/03/2023 Office Visit Orthopedics Nima Cox, DO [address] [place] [address] 10/10/2023 Office Visit Orthopedics Nima Cox, DO [address] [place] [address] 12/03/2023 Office Visit Cardiology aKth Carlin PA-C [address] [place] [address] 01/02/2024 Office Visit Family Medicine Farooq Rodríguez, DO [address] [place] [facility] [address] Scheduled Orders Name Type Priority Associated Diagnoses Orde r Schedule INJECT MAJOR JX/BURSA W/O US GUIDE Procedures Routine Primary osteoarthritis of left knee Ordered: 08/13/2023 Scheduled Procedures Name Priority Associated Diagnoses Date/Ti [...] this encounter Medical Devices Implanted Type Area Manipulator Operator Device Identifier Shelf Expiration Date Model / Serial / Lot Envelope Tyrx Med Antibacteril - [id number] Implanted:Qty: 1 on 02/02/2023 by Bishop Jung MD at OR [facility] N/A: Spine Lumbar [employer] 08/21/2023 [id number] / / documented as of this encounter Visit Diagnoses Diagnosis Primary osteoarthritis of left knee- Primary Primary localized osteoarthrosis, lower leg documented in this encounter Administered Medications Inactive Administered Medications - up to 3 most recent administrations Medication Order MAR Action Action Date Dose Rate Site lidocaine 1% 1 mL - triamcinolone acetonide 40 mg/mL 1 mL inj 2 mL 2 mL, Injection, ONCE, On 08/13/23 at 1545, For 1 dose, Lidocaine 1% 1mL Triamcinolone Acetonide 40 mg/mL 1 mL (Final concentration = 20 mg/mL) REFRIGERATE and SHAKE WELL Given 08/13/2023 3:27 PM EDT 2 mL Knee Left documented in this encounter Care Teams Manager Environmental Services Relationship Specialty Start Date End Date Farooq Rodríguez, DO [address] [place] [address] PCP - General Family Medicine 08/22/19 documented as of this encounter
--- OUTSIDE RECORDS SUMMARY | 2023-09-26 01:41 | External Medical Summary | Summary of Care ---
Author Name Unknown Organization [facility] Address [address] [facility] [place] [place] [address] Phone [phone] Care Team Providers Care College Football Coach Name Role Phone Farooq Rodríguez DO Primary Care Provider [phone] Encounter Details Date Type Department Care Team Description 08/13/2023 Immunization Ancillary [facility] [address] [facility] [place] [address] [facility] Flu Shot Clinic [facility] [address] [facility] [place] [address] Arrived Allergies No known active allergiesdocumented as of [...] by mouth in the morning. 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 02/10/2021 Pneumonia due to other [...] on file documented as of this encounter Plan of Treatment Upcoming Encounters Date Type Specialty Care Team Description 08/16/2023 PulmDiagnostic Pulmonary Function [facility], [facility] [address] [place] [address] 09/26/2023 Office Visit Orthopedics Nima Cox, DO [address] [place] [address] 10/03/2023 Office Visit Orthopedics Nima Cox DO [address] [place] [address] 10/10/2023 Office Visit Orthopedics Nima Cox DO [address] [place] [address] 12/03/2023 Office Visit Cardiology Kath Carlin PA-C [address] [place] [address] 01/02/2024 Office Visit Family Medicine Farooq Rodríguez, DO [address] [place] [address] Scheduled Procedures Name Priority Associated Diagnoses Date/Ti [...] this encounter Medical Devices Implanted Type Area Gsa Coordinator Device Identifier Shelf Expiration Date Model / Serial / Lot Envelope Tyrx Med Antibacteril - [id number] Implanted:Qty: 1 on 02/02/2023 by Bishop Jung MD at OR [facility] N/A: Spine Lumbar [employer] 08/21/2023 [id number] / / documented as of this encounter Care Teams College Football Coach Relationship Specialty Start Date End Date Farooq Rodríguez, DO [address] [place] [address] PCP - General Family Medicine 08/22/19 documented as of this encounter
--- OUTSIDE RECORDS SUMMARY | 2023-09-26 01:41 | External Medical Summary | Summary of Care ---
Author Name Unknown Organization [facility] Address [address] [facility] [place] [address] Phone [phone] Care Team Providers Care Universal Worker Assisted Living Name Role Phone Farooq Rodríguez DO Primary Care Provider [phone] Reason for Visit * Reason Onset Date Comments Medication Pre-auth 08/13/2023 GelsV2contact-08/13- [place] Encounter Details Date Type Department Care Team Description 08/13/2023 Telephone Orthopaedics [facility] [address] [place] [address] Nima Salinas DO [address] [facility] [place] [address] Medication Pre-auth (Gelsyn-08/13- [place]) Allergies No known active allergiesdocumented as of this encounter (statuses as of 08/14/2023) Medications Medication Sig Dispensed Refills Start Date [...] by mouth in the morning. 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 Route to [id number] Is there radiological proof(x-ray, cat scan, mri of osteoarthritis? yesIf yes, date of scan: Has the patient tried physical therapy?yes Has the patient tried tylenol or NSAIDs?yes Has the patient failed corticosteroid injections of the knee?yes Has the patient tried weight loss?no Has the patient tried knee bracing?yes Has the patient tried a home exercise program?no Diagnosis (including ICD-10): Unilateral primary osteoarthritis, left knee- M17.12 Medication(s) Tried/Failed/Contraindicated: See corresponding visit note(s) for additional supporting clinical information. Office Information: Prescriber: nima salinas do * Telephone Encounter - Nima Salinas DO - 08/13/2023 3:17 PM EDT Please [place] documented in this encounter Plan of Treatment Upcoming Encounters Date Type Specialty Care Team Description 08/16/2023 PulmDiagnostic Pulmonary Function [place], [facility] [address] [place] [address] 09/26/2023 Office Visit OrthopedicNima Rosas DO [address] [place] [address] 10/03/2023 Office Visit Orthopedics Nima Salinas DO [address] [place] [address] 10/10/2023 Office Visit Orthopedics Nima Salinas, [address] [place] [address] 12/03/2023 Office Visit Cardiology Kath Carlin PA-C [address] [place] [address] 01/02/2024 Office Visit Family Medicine Farooq Rodríguez DO [address] [place], [place] [address] Scheduled Procedures Name Priority Associated Diagnoses Date/Ti [...] this encounter Medical Devices Implanted Type Area Farm Hand Device Identifier Shelf Expiration Date Model / Serial / Lot Envelope Tyrx Med Antibacteril - [id number] Implanted:Qty: 1 on 02/02/2023 by Bishop Jung MD at OR [facility] N/A: Spine Lumbar MEDTRONIC [employer] 08/21/2023 [id number] / / documented as of this encounter Care Teams Universal Worker Assisted Living Relationship Specialty Start Date End Date Farooq Rodríguez, DO [address] [place] [address] PCP - General Family Medicine 08/22/19 documented as of this encounter
--- OUTSIDE RECORDS SUMMARY | 2023-09-26 01:42 | External Medical Summary | Summary of Care ---
Author Name Unknown Organization [facility] Address [address] [place] [address] Phone [phone] Care Team Providers Care Evp Head Of [employer] Experience Strategy Name Role Phone AntolinlorenleanneFarooq Belle PEÑA Primary Care Provider [phone] Encounter Details Date Type Department Care Team Description 07/27/2023 Patient Reported Data Patient Survey Ortho OBERD Allergies No known active allergiesdocumented as of this encounter (statuses as of 07/27/2023) Medications Medication Sig Dispensed Refills Start Date [...] by mouth in the morning. 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 02/10/2021 Pneumonia due to other virus not elsewhere class ified 12/24/2002 04/29/2021 documented as of this encounter (statuses as of 07/27/2023) Immunizations Name Administration Dates Next Due COVID-19 [...] Encounters Date Type Specialty Care Team Description 08/03/2023 Office Visit Pain Medicine Rosa Bolton PA-C [address] [place] [address] 08/13/2023 Office Visit Orthopedics Nima Cox DO [address] [place] [address] 08/16/2023 PulmDiagnostic Pulmonary Function [place], [facility] [address] [place] [address] 12/03/2023 Office Visit Cardiology Kath Carlin PA-C [address] [place] [address] 01/02/2024 Office Visit Family Medicine Farooq Rodríguez, DO [address] [facility], [place] [address] Scheduled Procedures Name Priority Associated Diagnoses Date/Ti [...] this encounter Medical Devices Implanted Type Area Master Mechanic Device Identifier Shelf Expiration Date Model / Serial / Lot Envelope Tyrx Med Antibacteril - [id number] Implanted:Qty: 1 on 02/02/2023 by Bishop Jung MD at OR [facility] N/A: Spine Lumbar MEDTRONIC [employer] 08/21/2023 [id number] / / documented as of this encounter Care Teams Evp Head Of [employer] Experience Strategy Relationship Specialty Start Date End Date Farooq Rodríguez, DO [address] [place] [address] PCP - General Family Medicine 08/22/19 documented as of this encounter
--- OUTSIDE RECORDS SUMMARY | 2023-09-26 01:42 | External Medical Summary | Summary of Care ---
Author Name Unknown Organization [facility] Address [address] [place] [address] Phone [phone] Care Team Providers Care Electrical Systems Engineer Name Role Phone AntolinlorenleanneFarooq Belle PEÑA Primary Care Provider [phone] Encounter Details Date Type Department Care Team [...] by mouth in the morning. 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 02/10/2021 Pneumonia due to other [...] Bolton PA-C [address] [place] [address] 08/13/2023 Office Visit Orthopedics Nima Cox DO [address] [place] [address] 08/16/2023 PulmDiagnostic Pulmonary Function [place], [facility] [address] [place] [address] 12/03/2023 Office Visit Cardiology Kath Carlin PA-C [address] [place] [address] 01/02/2024 Office Visit Family Medicine Farooq Rodríguez, DO [address] [facility], [place] [address] Scheduled Procedures Name Priority Associated Diagnoses Date/Ti [...] this encounter Medical Devices Implanted Type Area Manager Mac Device Identifier Shelf Expiration Date Model / Serial / Lot Envelope Tyrx Med Antibacteril - [id number] Implanted:Qty: 1 on 02/02/2023 by Bishop Jung MD at OR [facility] N/A: Spine Lumbar [employer] 08/21/2023 [id number] / / documented as of this encounter Care Teams Electrical Systems Engineer Relationship Specialty Start Date End Date Farooq Rodríguez, DO [address] [place] [address] PCP - General Family Medicine 08/22/19 documented as of this encounter
--- OUTSIDE RECORDS SUMMARY | 2023-09-26 01:42 | External Medical Summary | Summary of Care ---
Author Name Unknown Organization [facility] Address [address] [place] [address] Phone [phone] Care Team Providers Care Customer Service Security Officer Name Role Phone AntolinlorenleanneFarooq Belle PEÑA Primary Care Provider [phone] Encounter Details Date Type Department Care Team [...] by mouth in the morning. 0 Active [place]-3 Fatty Acids (OMEGA 3 500) 500 MG [...] Bolton PA-C [address] [place] [address] 08/13/2023 Office Visit Orthopedics Nima Cox DO [address] [place] [address] 08/16/2023 PulmDiagnostic Pulmonary Function [place], [facility] [address] [place] [address] 12/03/2023 Office Visit Cardiology Kath Carlin PA-C [address] [place] [address] 01/02/2024 Office Visit Family Medicine Farooq Rodríguez, DO [address] [facility], [place] [address] Scheduled Procedures Name Priority Associated Diagnoses Date/Ti [...] this encounter Medical Devices Implanted Type Area Promotion Writer Device Identifier Shelf Expiration Date Model / Serial / Lot Envelope Tyrx Med Antibacteril - [id number] Implanted:Qty: 1 on 02/02/2023 by Bishop Jung MD at OR [facility] N/A: Spine Lumbar MEDTRONIC [employer] 08/21/2023 [id number] / / documented as of this encounter Care Teams Customer Service Security Officer Relationship Specialty Start Date End Date Farooq Rodríguez, DO [address] [place] [address] PCP - General Family Medicine 08/22/19 documented as of this encounter
--- OUTSIDE RECORDS SUMMARY | 2023-09-26 01:42 | External Medical Summary | Summary of Care ---
Author Name Unknown Organization [facility] Address [address] [place] [address] Phone [phone] Care Team Providers Care Sales Representative Meats Name Role Phone AntolinlorenleanneFarooq Belle PEÑA Primary Care Provider [phone] Encounter Details Date Type Department Care Team [...] by mouth in the morning. 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 02/10/2021 Pneumonia due to other [...] Bolton PA-C [address] [place] [address] 08/13/2023 Office Visit Orthopedics Nima Cox DO [address] [place] [address] 08/16/2023 PulmDiagnostic Pulmonary Function [place], [facility] [address] [place] [address] 12/03/2023 Office Visit Cardiology Kath Carlin PA-C [address] [place] [address] 01/02/2024 Office Visit Family Medicine Farooq Rodríguez, DO [address] [facility], [place] [address] Scheduled Procedures Name Priority Associated Diagnoses Date/Ti [...] this encounter Medical Devices Implanted Type Area Lock Plater Device Identifier Shelf Expiration Date Model / Serial / Lot Envelope Tyrx Med Antibacteril - [id number] Implanted:Qty: 1 on 02/02/2023 by Bishop Jung MD at OR [facility] N/A: Spine Lumbar [employer]TR[employer]IC [employer] 08/21/2023 [id number] / / documented as of this encounter Care Teams Sales Representative Meats Relationship Specialty Start Date End Date Farooq Rodríguez, DO [address] [place] [address] PCP - General Family Medicine 08/22/19 documented as of this encounter
--- OUTSIDE RECORDS SUMMARY | 2023-09-26 01:42 | External Medical Summary | Summary of Care ---
Author Name Unknown Organization [facility] Address [address] [place] [address] Phone [phone] Care Team Providers Care Swedish Masseuse Name Role Phone AntolinlorenleanneFarooq Belle PEÑA Primary Care Provider [phone] Encounter Details Date Type Department Care Team [...] by mouth in the morning. 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 02/10/2021 Pneumonia due to other [...] Bolton PA-C [address] [place] [address] 08/13/2023 Office Visit Orthopedics Nima Cox DO [address] [place] [address] 08/16/2023 PulmDiagnostic Pulmonary Function [place], [facility] [address] [place] [address] 12/03/2023 Office Visit Cardiology Kath Carlin PA-C [address] [place] [address] 01/02/2024 Office Visit Family Medicine Farooq Rodríguez, DO [address] [facility], [place] [address] Scheduled Procedures Name Priority Associated Diagnoses Date/Ti [...] this encounter Medical Devices Implanted Type Area Ice Cream Machine Operator Device Identifier Shelf Expiration Date Model / Serial / Lot Envelope Tyrx Med Antibacteril - [id number] Implanted:Qty: 1 on 02/02/2023 by Bishop Jung MD at OR [facility] N/A: Spine Lumbar [employer]TR[employer]IC [employer] 08/21/2023 [id number] / / documented as of this encounter Care Teams Swedish Masseuse Relationship Specialty Start Date End Date Farooq Rodríguez, DO [address] [facility] [place] [address] PCP - General Family Medicine 08/22/19 documented as of this encounter
--- OUTSIDE RECORDS SUMMARY | 2023-09-26 01:43 | External Medical Summary | Summary of Care ---
Author Name Unknown Organization [facility] Address [address] [place] [address] Phone [phone] Care Team Providers Care Concrete Curer Name Role Phone Kelly Mitchell DO Primary Care Provider [phone] Reason for Visit * Reason Onset Date Comments Medication Refill 06/25/2023 Encounter Details Date Type Department Care Team Description 06/25/2023 Refill Family Practice [facility] [address] [facility] [address] Kelly Mitchell DO [address] [place] [address] Allergies No known active allergiesdocumented as of this encounter (statuses as of 2023) Medications Medication Sig Dispensed Refills Start Date End Date Status ASPIRIN 81 MG PO TABS One daily 0 Active ZYRTEC ALLERGY 10 MG PO TABS one daily 0 Active HM VITAMIN D3 2000 UNITS PO CAPSIndications:Vi tamin D deficiency 1 CAPSULE DAILY 0 03/22/2014 A ctive albuterol (PROAIR HFA) 108 (90 BASE) MCG/ACT [...] by mouth in the morning. 0 Active [place]-3 Fatty Acids (OMEGA 3 500) 500 MG [...] the morning. 135 Tablet 3 12/12/2022 Active Pantoprazole Sodium 40 MG Oral Tablet Delayed Release (Protonix)Indicati ons:Gastroesophage al reflux disease without esophagitis Take 1 Tablet by mouth in the morning. 90 Tablet 1 12/12/2022 Active Lisinopril 40 MG Oral TabletIndications: [...] or wheezing 1080 mL 0 2023 Active Albuterol Sulfate (2.5 MG/3ML) 0.083% Inhalation Nebulization Solution (Proventil) Inhale via nebulizer every 4 hours as needed for shortness of breath or wheezing 360 mL 3 06/12/2023 3 Discontinue d(Refill) Hospital, Clinic, or Other Facility Administered Medication Ordered Dose Route Frequency Start Date End Date Status Albuterol Sulfate (Proventil) (2.5 MG/3ML) 0.083% inhalation solution 2.5 mgIndications:Mild persistent asthma, unspecified whether complicated 2.5 mg NEBULIZER ONCE PRN 06/12/2023 06/11/2024 Active documented as of this encounter (statuses as of 2023) Active Problems Problem Noted Date Mild persistent [...] as of this encounter (statuses as of 2023) Resolved Problems Problem Noted Date Resolved Date Encounter for surveillance of abnormal nevi 03/2004/29/2021 Bronchiectasis 04/18/2003 06/12/2017 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 02/10/2021 Pneumonia due to other virus not elsewhere class ified 12/24/2002 04/29/2021 documented as of this encounter (statuses as of 2023) Immunizations Name Administration Dates Next Due COVID-19 mRNA, LNP-s, No Pre serve, 2-Dose Series (BeeFirst.in) 04/09/2021,03/19/2021 Pneumococcal Conjugate Vacc, 13 Valent (Prevnar) [...] encounter Miscellaneous Notes * Telephone Encounter - Cathi Steele RP - 2023 8:53 AM EDT Signed Prescriptions: Disp Refills Albuterol Sulfate (2.5 MG/3ML) 0.083% Inha*1080 mL0 Sig: Inhale via nebulizer every 4 hours as needed for shortness of breath or wheezingAuthorizing Provider: KELLY MITCHELL User: CATHI STEELE documented in this encounter Plan of Treatment Upcoming Encounters Date Type Specialty Care Team Description 08/16/2023 PulmDiagnostic Pulmonary Function [place], [facility] [address] [place] [address] 12/03/2023 Office Visit Cardiology Kath Carlin PA-C [address] [place] [address] 01/02/2024 Office Visit Family Medicine Kelly Mitchell, DO [address] [place] [address] Scheduled Procedures Name Priority Associated Diagnoses Date/Ti me COLONOSCOPY FLEXIBLE PROXIMA L DIAGNOSTIC Recall Encounter for screening colonoscopy Health Maintenance Due Date Last Done Comments Albumin/Creatinine Ratio 1980 Cologuard 2007 Fecal Occult Blood Test 2007 Sigmoidoscopy 2007 COVID-19 Vaccine (3 - Pfizer series) 06/04/2021 04/09/2021, 03/19/2021 Depression Screening, Annual for Pts 12 and Over 04/29/2022 04/29/2021 Influenza Vaccine (FLU shot) (#1) [...] this encounter Medical Devices Implanted Type Area Paper Cone Maker Device Identifier Shelf Expiration Date Model / Serial / Lot Envelope Tyrx Med Antibacteril - [id number] Implanted:Qty: 1 on 02/02/2023 by Bishop Jung MD at OR [facility] N/A: Spine Lumbar [employer] 08/21/2023 [id number] / / documented as of this encounter Care Teams Concrete Curer Relationship Specialty Start Date End Date Kelly Mitchell, DO [address] [place] [address] PCP - General Family Medicine 08/22/19 documented as of this encounter
--- OUTSIDE RECORDS SUMMARY | 2023-09-26 01:43 | External Medical Summary | Summary of Care ---
Author Name Unknown Organization [facility] Address [address] [place] [address] Phone [phone] Care Team Providers Care C D Reactor Operator Name Role Phone MarcosFarooq Belle PEÑA Primary Care Provider [phone] Encounter Details Date Type Department Care Team Description 07/11/2023 Orders Only Outcomes Research Department [address] [place], [place] [id number] [place] [facility] [employer] Research Other*[id number] Allergies No known active allergiesdocumented as of this encounter (statuses as of 07/11/2023) Medications Medication Sig Dispensed Refills Start Date [...] by mouth in the morning. 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 02/10/2021 Pneumonia due to other virus not elsewhere class ified 12/24/2002 04/29/2021 documented as of this encounter (statuses as of 07/11/2023) Immunizations Name Administration Dates Next Due COVID-19 mRNA, LNP-s, No Pre serve, 2-Dose Series (Flapshare) 04/09/2021,03/19/2021 Pneumococcal Conjugate Vacc, 13 Valent (Prevnar) [...] PulmDiagnostic Pulmonary Function [place], [facility] [address] [place] [address] 12/03/2023 Office Visit Cardiology Kath Carlin PA-C [address] [place] [address] 01/02/2024 Office Visit Family Medicine Farooq Rodríguez, DO [address] [place] [address] Scheduled Orders Name Type Priority Associated Diagnoses Orde r Schedule MYCODE SUBSEQUENT ADULT Lab Routine MyCode Research Other*[id number] Every 6 Months for 2 Occurrences starting 07/11/2023 until 07/30/2024 Scheduled Procedures Name Priority Associated Diagnoses Date/Ti [...] 2027 08/19/2010, 08/19/2010 Lipid Panel 01/16/2028 01/16/2023, 11/2021, [...] this encounter Medical Devices Implanted Type Area Scoop Machine Operator Device Identifier Shelf Expiration Date Model / Serial / Lot Envelope Tyrx Med Antibacteril - [id number] Implanted:Qty: 1 on 02/02/2023 by Bishop Jung MD at OR [facility] N/A: Spine Lumbar [employer]TR[employer]IC [employer] 08/21/2023 [id number] / / documented as of this encounter Visit Diagnoses Diagnosis MyCode Research Other*[id number] documented in this encounter Care Teams C D Reactor Operator Relationship Specialty Start Date End Date Farooq Rodríguez, DO [address] [facility] [place] [place] [address] PCP - General Family Medicine 08/22/19 documented as of this encounter
--- OUTSIDE RECORDS SUMMARY | 2023-09-26 01:43 | External Medical Summary | Summary of Care ---
Author Name Unknown Organization [facility] Address [address] [place] [address] Phone [phone] Care Team Providers Care Greenkeeper Name Role Phone Farooq Rodríguez DO Primary Care Provider [phone] Reason for Visit * Reason Onset Date Comments Pulmonary Function Test 07/13/2023 Called p t to offer earlier appointment. Pt currently scheduled 08/16/23 Encounter Details Date Type Department Care Team Description 07/13/2023 Telephone Family Practice [facility] [place] [address] [facility] [place] [address] Farooq Rod[facility]uez [facility] [address] [facility] [address] Pul[facility] Function Test (Called pt to offe... Allergies No known active allergiesdocumented as of this encounter (statuses as of 07/13/2023) Medications Medication Sig Dispensed Refills Start Date [...] by mouth in the morning. 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 Pt currently scheduled 08/16/23 documented in this encounter Plan of Treatment Upcoming Encounters Date Type Specialty Care Team Description 08/16/2023 PulmDiagnostic Pulmonary Function [place], [facility] [address] [place] [address] 12/03/2023 Office Visit Cardiology Kath Carlin PA-C [address] [place] [address] 01/02/2024 Office Visit Family Medicine Farooq Rodríguez, DO [address] [facility] [place] [address] Scheduled Procedures Name Priority Associated Diagnoses Date/Ti [...] 2027 08/19/2010, 08/19/2010 Lipid Panel 01/16/2028 01/16/2023, 03/0 11/2021, 12/22/2020, Additional history exists DTaP,Tdap,and Td [...] this encounter Medical Devices Implanted Type Area Mail Sorter Device Identifier Shelf Expiration Date Model / Serial / Lot Envelope Tyrx Med Antibacteril - [id number] Implanted:Qty: 1 on 02/02/2023 by Bishop Jung MD at OR [facility] N/A: Spine Lumbar [employer] 08/21/2023 [id number] / / documented as of this encounter Care Teams Greenkeeper Relationship Specialty Start Date End Date Farooq Rodríguez, DO [address] [place] [address] PCP - General Family Medicine 08/22/19 documented as of this encounter
--- OUTSIDE RECORDS SUMMARY | 2023-09-26 01:43 | External Medical Summary | Summary of Care ---
Author Name Unknown Organization [facility] Address [address] [place] [address] Phone [phone] Care Team Providers Care Automobile Leasing Supervisor Name Role Phone Kelly Mitchell DO Primary Care Provider [phone] Reason for Visit * Reason Comments eRx-Medication Refill Encounter Details Date Type Department Care Team Description 07/05/2023 Refill Family Practice [facility] [address] [facility] [place] [address] Kelly Mitchell DO [address] [facility] [place] [address] Gastroesophageal reflux disease without esophagitis Allergies No known active allergiesdocumented as of this encounter (statuses as of 07/05/2023) Medications Medication Sig Dispensed Refills Start Date [...] by mouth in the morning. 0 Active [place]-3 Fatty Acids (OMEGA 3 500) 500 MG [...] THE MORNING 90 Tablet 1 07/05/2023 Active Pantoprazole Sodium 40 MG Oral Tablet Delayed Release (Protonix)Indicati ons:Gastroesophage al reflux disease without esophagitis Take 1 Tablet by mouth in the morning. 90 Tablet 1 12/12/2022 3 Discontinued Hospital, Clinic, or Other Facility Administered Medication Ordered Dose Route Frequency Start Date End Date Status Albuterol Sulfate (Proventil) (2.5 MG/3ML) 0.083% inhalation solution 2.5 mgIndications:Mild persistent asthma, unspecified whether complicated 2.5 mg NEBULIZER ONCE PRN 06/12/2023 06/11/2024 Active documented as of this encounter (statuses as of 07/05/2023) Active Problems Problem Noted Date Mild persistent [...] as of this encounter (statuses as of 07/05/2023) Resolved Problems Problem Noted Date Resolved Date Encounter for surveillance of abnormal nevi 03/2004/29/2021 Bronchiectasis 04/18/2003 06/12/2017 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 Pneumonia due to other virus not elsewhere class ified 12/24/2002 04/29/2021 documented as of this encounter (statuses as of 07/05/2023) Immunizations Name Administration Dates Next Due COVID-19 mRNA, LNP-s, No Pre serve, 2-Dose Series ([employer]) 04/09/2021,03/19/2021 Pneumococcal Conjugate Vacc, 13 Valent (Prevnar) [...] encounter Miscellaneous Notes * Telephone Encounter - Dipti Thurman [facility] - 07/05/2023 2:09 PM EDTSigned Prescriptions: Disp Refills Pantoprazole Sodium 40 MG Oral Tablet [place]*90 Tab*1 Sig: TAKE 1 TABLET IN THE MORNINGAuthorizing Provider: KELLY MITCHELL User: DIPTI THURMAN--------- documented in this encounter Plan of Treatment Upcoming Encounters Date Type Specialty Care Team Description 08/16/2023 PulmDiagnostic Pulmonary Function [place] [address] [place] [address] 12/03/2023 Office Visit Cardiology Kath Carlin PA-C [address] [place] [address] 01/02/2024 Office Visit Family Medicine Kelly Mitchell, DO [address] [place] [address] Scheduled Procedures Name Priority Associated Diagnoses Date/Ti [...] this encounter Medical Devices Implanted Type Area Horse Breeder Device Identifier Shelf Expiration Date Model / Serial / Lot Envelope Tyrx Med Antibacteril - [id number] Implanted:Qty: 1 on 02/02/2023 by Bishop Jung MD at OR [facility] N/A: Spine Lumbar [employer] 08/21/2023 [id number] / / documented as of this encounter Visit Diagnoses Diagnosis Gastroesophageal reflux disease without esophagitis Esophageal reflux documented in this encounter Care Teams Automobile Leasing Supervisor Relationship Specialty Start Date End Date Kelly Mitchell, DO [address] [place] [address] PCP - General Family Medicine 08/22/19 documented as of this encounter
--- OUTSIDE RECORDS SUMMARY | 2023-09-26 01:43 | External Medical Summary | Summary of Care ---
Author Name Unknown Organization [facility] Address [address] [place] [address] Phone [phone] Care Team Providers Care Proposal Development Manager Name Role Phone AntolinlorenleanneFarooq Belle PEÑA Primary Care Provider [phone] Encounter Details Date Type Department Care Team [...] by mouth in the morning. 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 Pneumonia due to other [...] Bolton PA-C [address] [place] [address] 08/13/2023 Office Visit Orthopedics Nima Cox DO [address] [place] [address] 08/16/2023 PulmDiagnostic Pulmonary Function [place] [address] [place] [address] 12/03/2023 Office Visit Cardiology Kath Carlin PA-C [address] [place] [address] 01/02/2024 Office Visit Family Medicine Farooq Rodríguez, DO [address] [facility], [place] [address] Scheduled Procedures Name Priority Associated Diagnoses Date/Ti [...] this encounter Medical Devices Implanted Type Area Proof Sorter Device Identifier Shelf Expiration Date Model / Serial / Lot Envelope Tyrx Med Antibacteril - [id number] Implanted:Qty: 1 on 02/02/2023 by Bishop Jung MD at OR [facility] N/A: Spine Lumbar [employer] 08/21/2023 [id number] / / documented as of this encounter Care Teams Proposal Development Manager Relationship Specialty Start Date End Date Farooq Rodríguez, DO [address] [facility] [place] [address] PCP - General Family Medicine 08/22/19 documented as of this encounter
--- OUTSIDE RECORDS SUMMARY | 2023-09-26 01:44 | External Medical Summary | Summary of Care ---
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 [facility] N/A: Spine Lumbar [employer] 08/21/2023 [id number] / / documented as of this encounter Visit Diagnoses Diagnosis Chronic diastolic (congestive) heart failure (HCC)- Primary Dilated aortic root (HCC) Thoracic aortic ectasia HTN, goal below 140/90 Unspecified essential hypertension Dyslipidemia, goal LDL below 100 Other and unspecified hyperlipidemia documented in this encounter Care Teams Nurse Infection Control Relationship Specialty Start Date End Date Farooq Rodríguez, DO [address] [facility] [place] [address] PCP - General Family Medicine 08/22/19 documented as of this encounter"
--- OUTSIDE RECORDS SUMMARY | 2023-09-26 01:44 | External Medical Summary | Summary of Care ---
Author Name Unknown Organization [facility] Address [address] [place] [address] Phone [phone] Care Team Providers Care Websphere Consultant Name Role Phone Kelly Mitchell DO Primary Care Provider [phone] Reason for Visit * Reason Comments eRx-Medication Refill Encounter Details Date Type Department Care Team Description 04/11/2023 Refill Family Practice [facility] 200 [facility] [place] [address] Kelly [facility] DO [address] [facility] [address] HTN, goal below 140/90 Allergies No known active allergiesdocumented as of this encounter (statuses as of 04/12/2023) Medications Medication Sig Dispensed Refills Start Date End Date Status ASPIRIN 81 MG PO TABS One daily 0 Active ZYRTEC ALLERGY 10 MG PO TABS one daily 0 Active ALBUTEROL SULFATE (2.5 MG/3ML) 0.083% IN NEBU Inhale via nebulizer. 0 Active HM VITAMIN D3 2000 UNITS PO CAPSIndications:V itamin D deficiency 1 CAPSULE DAILY 0 03/22/2014 Active albuterol (PROAIR HFA) 108 (90 BASE) MCG/ACT inhalerIndication s:Acute bronchitis, antibiotics not indicated Inhale 2 Puffs [...] by mouth in the morning. 0 Active [place]-3 Fatty Acids (OMEGA 3 500) 500 MG CAPS Take by mouth. 0 Acti ve Azelastine HCl 0.1 % nasal sprayIndications: Chronic rhinitis USE 2 SPRAY(S) IN EACH NOSTRIL [...] Sodium 40 MG Oral Tablet Delayed Release (Protonix)Indicat ions:Gastroesopha geal reflux disease without esophagitis Take 1 Tablet by mouth in the morning. 90 Tablet 1 12/12/2022 Active Lisinopril 40 MG Oral TabletIndications :HTN, goal below 140/90 Take 1 Tablet by mouth in the morning. 90 Tablet 3 12/11/2022 Active Atorvastatin Calcium 40 MG Oral Tablet (Lipitor)Indicati ons:CAD (coronary artery disease) Take 1 Tablet by [...] day as needed for Dizziness. 270 Tablet 12/12/2022 Active Additional Information Patient not taking.Reported on 02/16/2023 tiZANidine HCl 4 MG Oral Tablet (Zanaflex)Indicat ions:Acute low back pain without sciatica, unspecified back pain laterality TAKE 1 TABLET BY MOUTH EVERY 6 HOURS NEEDED FOR MUSCLE SPASM 360 Tablet 0 12/12/2022 Active Ipratropium-Albut rhonda 0.5-2.5 (3) MG/3ML Inhalation Solution (Duoneb)Indicatio ns:Mild persistent asthma without complication Inhale 3 mL via nebulizer in the morning and 3 mL at noon and 3 mL in the evening and 3 mL before bedtime. 120 mL 5 01/16/2023 Active Amitriptyline HCl 25 MG Oral Tablet (Elavil)Indicatio ns:Migraine variant TAKE 1 TABLET AT BEDTIME 90 Tablet 1 03/19/2023 Active Potassium Chloride ER 10 MEQ Oral Tablet Extended ReleaseIndication s:HTN, goal below 140/90 TAKE 1 TABLET DAILY 90 Tablet 3 04/12/2023 Active Potassium Chloride ER 10 MEQ Oral Tablet Extended ReleaseIndication s:HTN, goal below 140/90 Take 1 Tablet by mouth daily. 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 Chronic pain syndrome 12/06/2022 Body mass index (BMI) of 40.0 to 44.9 in adult 05/29/2022 Overview: Per Obesity protocol Chest pain with normal coronary angiogra phy 04/08/2021 Ascending aorta dilatation 12/01/2020 Chronic diastolic (congestive) heart kelly lure 12/01/2020 Bradycardia 05/31/2020 Dilated aortic root 12/11/2016 Neoplasm of uncertain behavior of skin 0 [...] as of this encounter (statuses as of 04/12/2023) Resolved Problems Problem Noted Date Resolved Date Encounter for surveillance of abnormal nevi 03/2004/29/2021 Dyslipidemia, goal LDL below 100 06/01/2014 12/08/2015 Bronchiectasis 04/18/2003 06/12/2017 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/2003 02/10/2021 Pneumonia due to other virus not elsewhere class ified 12/24/2002 04/29/2021 documented as of this encounter (statuses as of 04/12/2023) Immunizations Name Administration Dates Next Due COVID-19 [...] encounter Miscellaneous Notes * Telephone Encounter - Blossom Madrid RPh - 04/12/2023 8:09 AM EDTSigned Prescriptions: Disp Refills Potassium Chloride ER 10 MEQ Oral Tablet E*90 Tab*3 Sig: TAKE 1 TABLET DAILYAuthorizing Provider: KELLY MITCHELL User: BLOSSOM MADRID documented in this encounter Plan of Treatment Upcoming Encounters Date Type Specialty Care Team Description 05/21/2023 Cardiac Studies Cardiac Studies 05/28/2023 Office Visit Cardiology Kath Carlin PA-C [address] [place] [address] 06/12/2023 Office Visit Family Medicine Kelly Mitchell, DO [address] [facility] [place] [address] Scheduled Procedures Name Priority Associated Diagnoses Date/Ti me COLONOSCOPY FLEXIBLE PROXIMA L DIAGNOSTIC Recall Encounter for screening colonoscopy Health Maintenance Due Date Last Done Comments Albumin/Creatinine Ratio 1980 Cologuard 2007 Fecal Occult Blood Test 2007 Sigmoidoscopy 2007 COVID-19 Vaccine (3 - Booster for Pfizer series) 06/04/2021 04/09/2021, 03/19/2021 Depression Screening, Annual for Pts 12 and Over 04/29/2022 04/29/2021 Influenza Vaccine (FLU shot) (Season Ended) 2023 09/01/2021, 09/02/2020, 09/02/2020, Additional history exists [...] this encounter Medical Devices Implanted Type Area Tack Cutter Device Identifier Shelf Expiration Date Model / Serial / Lot Envelope Tyrx Med Antibacteril - [id number] Implanted:Qty: 1 on 02/02/2023 by Bishop Jung MD at OR [facility] N/A: Spine Lumbar [employer] 08/21/2023 [id number] / / documented as of this encounter Visit Diagnoses Diagnosis HTN, goal below 140/90 Unspecified essential hypertension documented in this encounter Care Teams Websphere Consultant Relationship Specialty Start Date End Date Kelly Mitchell, DO [address] [place] [address] PCP - General Family Medicine 08/22/19 documented as of this encounter
--- OUTSIDE RECORDS SUMMARY | 2023-09-26 01:44 | External Medical Summary | Summary of Care ---
Author Name Unknown Organization [facility] Address [address] [place] [address] Phone [phone] Care Team Providers Care Counter Roller Name Role Phone Farooq Rodríguez DO Primary Care Provider [phone] Reason for Visit * Reason Comments Re-Check Encounter Details Date Type Department Care Team Description 06/12/2023 Office Visit Family Practice [facility] 200 [facility] [place] [address] Farooq Rodríguez DO 200 [facility] [place] [address] Routine medical exam*; Chronic diastolic (congestive) heart failure (HCC); Acquired hypothyroidism; Mild persistent asthma, unspecified whether complicated; HTN, goal below 140/90; BPH with obstruction/lower urinary tract symptoms Allergies No known active allergiesdocumented as of this encounter (statuses as of 06/12/2023) Medications Medication Sig Dispensed Refills Start Date [...] by mouth in the morning. 0 Active [place]-3 Fatty Acids (OMEGA 3 500) 500 MG [...] breath or wheezing 360 mL 3 06/12/2023 Active ALBUTEROL SULFATE (2.5 MG/3ML) 0.083% IN NEBU Inhale via nebulizer. 0 3 Discontinue d(Refill) Hospital, Clinic, or Other Facility Administered Medication Ordered Dose Route Frequency Start Date End Date Status Albuterol Sulfate (Proventil) (2.5 MG/3ML) 0.083% inhalation solution 2.5 mgIndications:Mild persistent asthma, unspecified whether complicated 2.5 mg NEBULIZER ONCE PRN 06/12/2023 06/11/2024 Active documented as of this encounter (statuses as of 06/12/2023) Active Problems Problem Noted Date Mild persistent [...] as of this encounter (statuses as of 06/12/2023) Resolved Problems Problem Noted Date Resolved Date Encounter for surveillance of abnormal nevi 03/2004/29/2021 Bronchiectasis 04/18/2003 06/12/2017 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 Pneumonia due to other virus not elsewhere class ified 12/24/2002 04/29/2021 documented as of this encounter (statuses as of 06/12/2023) Immunizations Name Administration Dates Next Due COVID-19 [...] Sign Reading Time Taken Comments Blood Pressure 136/80 06/12/2023 1:39 PM EDT Pulse 93 06/12/2023 1:39 PM EDT Temperature 36.1 C (97 F) 06/12/2023 1:39 PM EDT Respiratory Rate 16 06/12/2023 1:39 PM EDT Oxygen Saturation 96% 06/12/2023 1:39 PM EDT Inhaled Oxygen Concentration - - Weight 128.4 kg (283 lb) 06/12/2023 1:39 PM EDT Height - - Body Mass Index 43.03 02/02/2023 7:48 AM EDT documented in this encounter Progress Notes * Farooq Rodríguez, DO - 06/12/2023 1:52 PM EDT Subjective: Placido Dean is a 62 year old male. Chief Complaint Patient presents with Re-Check HPI: Pt here in follow-up. Bad days breathing with smoke. Most days he feels good. We did review his other SOB epsidoes. UsingAlbuterol once per day. Otherwise he is doing pretty well. Neurostimulator done and does help his back. 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 PMHx, PSHx, SHx, FHx, Medications, and Allergies fully reviewed Was getting injections in his knees before stimulator. MAy need in left knee again. Getting out walking more on the weekends. Does with his . Diet has been pretty good. 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 [place]-3 Fatty Acids (OMEGA 3 500) 500 MG [...] TABLET IN THE MORNING 90 Tablet 2 No current facility-administered medications for this visit. Review of patient's allergies indicates: No Known Allergies OBJECTIVE: BP 136/80 | Pulse 93 | Temp 36.1 C (97 F) (Tympanic) | Resp 16 | Wt 128.4 kg (283 lb) | SpO2 96% | BMI 43.03 kg/m | BSA 2.48 m Estimated body mass index is 43.03 kg/m as calculated from the following: Height as of 02/02/23: 1.727 m (5' 8"). Weight as of this encounter: 128.4 kg (283 lb). BP Readings from Last 3 Encounters: 06/12/23 136/80 05/28/23 140/86 03/01/23 124/65 Wt Readings from Last 3 Encounters: 06/12/23 128.4 kg (283 lb) 05/28/23 128.8 kg (284 lb) 02/02/23 126.1 kg (278 lb) ROS: General: No change in weight, No weakness, No fatigue and No fevers, sweats, or chills Head: No significant headache and No recent significant head injury Eyes: No recent significant change in vision, No eye pain, redness, discharge, or excessive tearing, No diplopia and No h/o cataracts or glaucoma Ears: No recent change in hearing, No tinnitus or vertigo, No ear pain and No ear discharge Nose: No h/o frequent colds or sinusitis, No nasal stuffiness, No h/o hay fever and No significant epistaxis Throat/Oropharynx: No teeth or gum problems, No bleeding gums, No tongue complaints, No sore throatand No recent change in voice or hoarseness Neck: No complaint of lumps in neck, No swollen glands, No recent swelling in thyroid area and No significant pain in neck Respiratory: as above Cardiac: No chest pain, No shortness of breath, No dyspnea on exertion, No orthopnea, No paroxysmalnocturnal dyspnea, No edema, No palpitations and No syncope Gastrointestinal: No dysphagia, No significant heartburn, No significant change in appetite, No nausea, vomiting, diarrhea, or constipation, No hematemesis, No blood in stools or black tarry stools, No abdominal bloating or early satiety and No abdominal pain Urinary: No urinary frequency, No dysuria, No hematuria, No urinary urgency, No polyuria, No nocturia, No incontinence, No hesitancy and No sensation of incomplete voiding Musculoskeletal: chronic pain Hematologic: No anemia, No easy bruising or abnormal bleeding and No history of transfusion Neurologic: No fainting or blackouts, No seizures, No paralysis or focal weakness, No numbness or tingling, No tremors and No significant problems with memory PHYSICAL EXAM: General: alert, healthy and no distress Head: Normocephalic, No masses, lesions, tenderness or abnormalities Ears: External ears normal, Canals clear, TM's Normal Nose: no mucosal erythema, no mucosal edema, no purulent discharge Oropharynx: no exudate, no erythema, lips, buccal mucosa, and tongue normal and mucous membranes are moist Neck: supple, no adenopathy, no bruits, thyroid normal size, non-tender, without nodularity Heart: regular rate & rhythm, no murmurs and no gallops Lungs: chest symmetric with normal AP diameter, no chest deformities noted, no chest wall tenderness, lungs clear to auscultation Abdomen: abdomen soft, non-tender, normal bowel sounds and no masses or organomegaly Extremities: less than 2 second capillary refill, no joint deformities, effusion, or inflammation ASSESSMENT/Plan Routine medical exam (Primary) Chronic diastolic (congestive) heart failure (HCC) - BASIC METABOLIC PANEL; Future; Expected date: 12/13/2023 Acquired hypothyroidism - TSH WITH FREE T4 IF INDICATED; Future; Expected date: 12/13/2023 Mild persistent asthma, unspecified whether complicated - SPIROMETRY B/A BRONCHODILATOR; Future; Expected date: 06/19/2023 - Albuterol Sulfate (Proventil) (2.5 MG/3ML) 0.083% inhalation solution 2.5 mg HTN, goal below 140/90 - ALBUMIN / CREATININE RATIO, URINE; Future; Expected date: 06/12/2023 BPH with obstruction/lower urinary tract symptoms - PSA; Future; Expected date: 12/13/2023 Other orders - Albuterol Sulfate (2.5 MG/3ML) 0.083% Inhalation Nebulization Solution (Proventil); Inhale via nebulizer every 4 hours as needed for shortness of breath or wheezing Dental and sun care discussed along with weight. Check PFTs to see if it is worth starting a daily inhaler. The above was discussed and understanding was expressed. Farooq Rodríguez DO documented in this encounter Nursing Notes * Floridalma Arceo LPN - 06/12/2023 1:37 PM EDT Placido Dean presents for 6 month recheck. Medications & HM reviewed. Having difficulty with breathing. Thinks its from the smoke outside. documented in this encounter Plan of Treatment Upcoming Encounters Date Type Specialty Care Team Description 08/16/2023 PulmDiagnostic Pulmonary [facility] [place] [address] [place] [address] 12/03/2023 Office Visit Cardiology Kath Carlin PA-C [address] [place] [address] 01/02/2024 Office Visit Family Medicine Far[facility] [address] [facility] [address] Scheduled Orders Name Type Priority Associated Diagnoses Orde r Schedule TSH WITH FREE T4 IF INDICATED Lab Routine Acquired hypothyroidism Expected: 12/13/2023 (Approximate), Expires: 06/11/2024 BASIC METABOLIC PANEL Lab Routine Chronic diastolic (congestive) heart failure (HCC) Expected: 12/13/2023 (Approximate), Expires: 06/12/2024 SPIROMETRY B/A BRONCHODILATOR Procedures Routine Mild persistent asthma, unspecified whether complicated Expected: 06/19/2023, Expires: 07/13/2024 ALBUMIN / CREATININE RATIO, URINE Lab Routine HTN, goal below 140/90 Expected: 06/12/2023 (Approximate), Expires: 06/11/2024 PSA Lab Routine BPH with obstruction/lower urinary tract symptoms Expected: 12/13/2023 (Approximate), Expires: 06/11/2024 Scheduled Procedures Name Priority Associated Diagnoses Date/Ti [...] this encounter Medical Devices Implanted Type Area [employer] Brakes Device Identifier Shelf Expiration Date Model / Serial / Lot Envelope Tyrx Med Antibacteril - [id number] Implanted:Qty: 1 on 02/02/2023 by Bishop Jung MD at OR [facility] N/A: Spine Lumbar [employer] 08/21/2023 [id number] / / documented as of this encounter Visit Diagnoses Diagnosis Routine medical exam- Primary Routine general medical examination at a health care facility Chronic diastolic (congestive) heart failure (HCC) Acquired hypothyroidism Unspecified hypothyroidism Mild persistent asthma, unspecified whether complicated HTN, goal below 140/90 Unspecified essential hypertension BPH with obstruction/lower urinary tract symptoms Hypertrophy of prostate with urinary obstruction and other lower urinary tract symptoms (LUTS) documented in this encounter Care Teams Counter Roller Relationship Specialty Start Date End Date Farooq Rodríguez, DO [address] [place] [address] PCP - General Family Medicine 08/22/19 documented as of this encounter
--- OUTSIDE RECORDS SUMMARY | 2023-09-26 01:44 | External Medical Summary | Summary of Care ---
Author Name Unknown Organization [facility] Address [address] [place] [address] Phone [phone] Care Team Providers Care Link Trainer Mechanic Name Role Phone Kelly Mitchell DO Primary Care Provider [phone] Reason for Visit * Reason Comments eRx-Medication Refill Encounter Details Date Type Department Care Team Description 06/07/2023 Refill Family Practice [facility] 200 [facility] [place] [address] Kelly [facility] DO [facility] [address] CAD (coronary artery disease) Allergies No known active allergiesdocumented as of this encounter (statuses as of 06/08/2023) Medications Medication Sig Dispensed Refills Start Date [...] by mouth in the morning. 0 Active [place]-3 Fatty Acids (OMEGA 3 500) 500 MG [...] Oral Tablet (Lipitor)Indicati ons:CAD (coronary artery disease) TAKE 1 TABLET DAILY 90 Tablet 2 06/08/2023 Active Spironolactone 25 MG Oral Tablet (Aldactone) TAKE 1 TABLET IN THE MORNING 90 Tablet 2 06/08/2023 Active Atorvastatin Calcium 40 MG Oral Tablet (Lipitor)Indicati ons:CAD (coronary artery disease) Take 1 Tablet by mouth daily. 90 Tablet 1 12/12/2022 06/08/20 23 Discontinued Spironolactone 25 MG Oral Tablet (Aldactone) Take 1 Tablet by mouth in the morning. 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 02/10/2021 Pneumonia due to other virus not elsewhere class ified 12/24/2002 04/29/2021 documented as of this encounter (statuses as of 06/08/2023) Immunizations Name Administration Dates Next Due COVID-19 mRNA, LNP-s, No Pre serve, 2-Dose Series (Right Skills) 04/09/2021,03/19/2021 Pneumococcal Conjugate Vacc, 13 Valent (Prevnar) [...] encounter Miscellaneous Notes * Telephone Encounter - Christopher Shepherd, [facility] - 06/08/2023 3:40 PM EDT Signed Prescriptions: Disp Refills Atorvastatin Calcium 40 MG Oral Tablet (Li*90 Tab*2 Sig: TAKE 1 TABLET DAILYAuthorizing Provider: KELLY MITCHELL User: CHRISTOPHER SHEPHERD Spironolactone 25 MG Oral Tablet ([place]*90 Tab*2 Sig: TAKE 1 TABLET IN THE MORNINGAuthorizing Provider: KELLY BECKWITH User: CHRISTOPHER SHEPHERD documented in this encounter Plan of Treatment Upcoming Encounters Date Type Specialty Care Team Description 06/12/2023 Office Visit Family Medicine Kelly Mitchell, DO 200 [facility], [place] [address] 12/03/2023 Office Visit Cardiology Kath Carlin PA-C [address] [place] [address] Scheduled Procedures Name Priority Associated Diagnoses Date/Ti [...] this encounter Medical Devices Implanted Type Area Lehr Tender Device Identifier Shelf Expiration Date Model / Serial / Lot Envelope Tyrx Med Antibacteril - [id number] Implanted:Qty: 1 on 02/02/2023 by Bishop Jung MD at OR [facility] N/A: Spine Lumbar [employer] 08/21/2023 [id number] / / documented as of this encounter Visit Diagnoses Diagnosis CAD (coronary artery disease) Coronary atherosclerosis of unspecified type of vessel, [place] or graft documented in this encounter Care Teams Link Trainer Mechanic Relationship Specialty Start Date End Date Kelly Mitchell DO [address] [place] [address] PCP - General Family Medicine 08/22/19 documented as of this encounter
--- OUTSIDE RECORDS SUMMARY | 2023-09-26 01:45 | External Medical Summary | Summary of Care ---
Author Name Unknown Organization [facility] Address [address] [place] [address] Phone [phone] Care Team Providers Care Attendant Sales Name Role Phone Kelly Mitchell DO Primary Care Provider [phone] Reason for Visit * Reason Comments eRx-Medication Refill Encounter Details Date Type Department Care Team Description 11/05/2022 Refill Family Practice [facility] [address] [place] [address] [facility] [address] [facility] [address] CAD (coronary artery disease) Allergies No known active allergiesdocumented as of this encounter (statuses as of 03/07/2023) Medications Medication Sig Dispensed Refills Start Date End Date Status ASPIRIN 81 MG PO TABS One daily 0 Active ZYRTEC ALLERGY 10 MG PO TABS one daily 0 Active ALBUTEROL SULFATE (2.5 MG/3ML) 0.083% IN NEBU Inhale via nebulizer. 0 Active HM VITAMIN D3 2000 UNITS PO CAPSIndications: Vitamin D deficiency 1 CAPSULE DAILY 0 4 Active albuterol (PROAIR HFA) 108 (90 BASE) MCG/ACT inhalerIndicatio ns:Acute bronchitis, antibiotics not indicated Inhale 2 Puffs by mouth 4 times a day. 1 Inhaler 1 5 Active Mometasone Furo-Formoterol Fum 100-5 MCG/ACT Inhalation Aerosol Inhale 1 Puff by mouth as needed. 0 6 Active Multiple Vitamins-Mineral s (MENS MULTIPLE VITAMIN/LYCOPENE ) TABS Take by mouth daily. 0 Active vitamin e (AQUASOL E) 400 UNIT Capsule Take 1 Capsule by mouth in the morning. 0 Active [place]-3 Fatty Acids (OMEGA 3 500) 500 MG CAPS Take by mouth. 0 Acti ve Azelastine HCl 0.1 % nasal sprayIndications :Chronic rhinitis USE 2 SPRAY(S) IN EACH NOSTRIL TWICE DAILY 90 mL 1 9 Active Levothyroxine Sodium 125 MCG Oral Tablet (Levoxyl) Take by mouth 1 Tablet in the morning. (at least 30 min prior to breakfast or other meds) Repeat labs after 11/01. 30 Tablet 11 2 Active SUMAtriptan (IMITREX) 50 MG Tablet TAKE ONE TABLET BY MOUTH ONE TIME ONLY,REPEAT AFTER TWO HOURS NEEDED MAX OF FOUR TABLETS 12 Tab 0 6 12/12/19 23 Discontinued Meclizine HCl 25 MG Oral Tablet (Antivert) TAKE 1 TABLET BY MOUTH THREE TIMES DAILY NEEDED FOR DIZZINESS 30 Tab 5 1 12/12/19 23 Discontinued Gabapentin 300 MG Oral Capsule (Neurontin)Indic ations:Chronic bilateral low back pain with bilateral sciatica Take by mouth 1 Capsule before bedtime. 30 Capsule 1 2 12/12/19 23 Discontinued Pantoprazole Sodium 40 MG Oral Tablet Delayed Release (Protonix)Indica tions:Gastroesop hageal reflux disease without esophagitis Take by mouth 1 Tablet in the morning. 90 Tablet 3 2 12/12/19 23 Discontinued Atorvastatin Calcium 40 MG Oral Tablet (Lipitor)Indicat ions:CAD (coronary artery disease) Take 1 tablet by mouth once daily 90 Tablet 1 2 11/06/20 22 Discontinued Spironolactone 25 MG Oral Tablet (Aldactone) TAKE 1 TABLET BY MOUTH ONCE DAILY IN THE MORNING 90 Tablet 1 2 11/06/20 22 Discontinued Furosemide 40 MG Oral Tablet (Lasix) Take 1 tablet in the morning. Take an additional 1/2 tablet on Sunday, Sunday, Sunday 45 Tablet 11 2 12/06/19 23 Discontinued(Ref ill) Lisinopril 40 MG Oral TabletIndication s:HTN, goal below 140/90 Take 1 tablet by mouth once daily 90 Tablet 3 2 12/11/19 23 Discontinued tiZANidine HCl 4 MG Oral Tablet (Zanaflex)Indica tions:Acute low back pain without sciatica, unspecified back pain laterality TAKE 1 TABLET BY MOUTH EVERY 6 HOURS NEEDED FOR MUSCLE SPASM 30 Tablet 5 2 12/12/19 23 Discontinued Potassium Chloride ER 10 MEQ Oral Tablet Extended ReleaseIndicatio ns:HTN, goal below 140/90 Take 1 tablet by mouth once daily 90 Tablet 1 2 12/12/19 23 Discontinued Amitriptyline HCl 25 MG Oral Tablet (Elavil)Indicati ons:Migraine variant TAKE 1 TABLET BY MOUTH AT BEDTIME 90 Tablet 1 2 12/12/19 23 Discontinued Spironolactone 25 MG Oral Tablet (Aldactone) TAKE 1 TABLET BY MOUTH IN THE MORNING 90 Tablet 0 2 12/12/19 23 Discontinued Atorvastatin Calcium 40 MG Oral Tablet (Lipitor)Indicat ions:CAD (coronary artery disease) Take 1 tablet by mouth once daily 90 Tablet 0 2 12/12/19 23 Discontinued documented as of this encounter (statuses as of 03/07/2023) Active Problems Problem Noted Date 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 [...] as of this encounter (statuses as of 03/07/2023) Resolved Problems Problem Noted Date Resolved Date Encounter for surveillance of abnormal nevi 03/2004/29/2021 Dyslipidemia, goal LDL below 100 06/01/2014 12/08/2015 Bronchiectasis 04/18/2003 06/12/2017 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 Placed call to patient to advise. Pt was agreeable to set up office visit. Patient scheduled for 06/12/2023. Thank you, Elvira Sun Strategy Planning Consultant [facility] 03/07/2023, 2:24 PM * Telephone Encounter - Arlen Salvador [facility] - 11/06/2022 8:12 AM ESTSigned Prescriptions: Disp Refills Spironolactone 25 MG Oral Tablet ([place]*90 Tab*0 Sig: TAKE 1 TABLET BY MOUTH IN THE MORNING Authorizing Provider: KELLY MITCHELL Ordering User: ARLEN SALVADOR Atorvastatin Calcium 40 MG Oral Tablet (Li*90 Tab*0 Sig: Take 1 tablet by mouth once daily Authorizing Provider: KELLY MITCHELL Ordering User: ARLEN SALVADOR< BR> * Telephone Encounter - Arlen Salvador [facility] - 11/06/2022 8:10 AM EST Please contact patient so that an appointment can be scheduled with his PRIMARY CARE provider. Refill authorized to hold patient over in the mean time. Last Visit: 06/06/2022 - ACUTE (in office), 03/15/2020 (telemedicine) Next Visit: Visit date not found Thank you, Arlen Salvador PharmD Staff Pharmacist Refill Call Center [phone] 11/06/2022, 8:11 AM documented in this encounter Plan of Treatment Upcoming Encounters Date Type Specialty Care Team Description 03/08/2023 Nurse Only Pain Medicine [facility], Nurse Pain Medicine [address] [place] [address] 05/21/2023 Cardiac Studies Cardiac Studies 05/28/2023 Office Visit Cardiology Kath Carlin PA-C [address] [place] [address] 06/12/2023 Office Visit Family Medicine Kelly Mitchell, DO [address] [facility] [address] Scheduled Procedures Name Priority Associated Diagnoses Date/Ti me COLONOSCOPY FLEXIBLE PROXIMA L DIAGNOSTIC Recall Encounter for screening colonoscopy Health Maintenance Due Date Last Done Comments Albumin/Creatinine Ratio 1980 Cologuard: Ages 45-75 2007 FOBT: Ages 45-75 2007 Sigmoidoscopy: Ages 45-75 2007 COVID-19 Vaccine (3 - Booster for Pfizer series) 06/04/2021 04/09/2021, 03/19/2021 Depression Screening, Annual for Pts 12 and Over 04/29/2022 04/29/2021 Influenza Vaccine (FLU shot) (Season Ended) 2023 09/01/2021, 09/02/2020, 09/02/2020, Additional history exists GFR - Renal Function 01/16/2024 01/16/2023, 09/18/2022, 05/30/2022, Additional history exists TSH FOR THYROID MEDICATION MONITORING YEARLY 01/16/2024 01/16/2023, 09/18/2022, 05/30/2022, Additional history exists Colonoscopy: Ages 45-75 11/26/2025 11/26/19 16, 11/26/2015, 11/29/2012, Additional history exists Colorectal Cancer Screening (Colonoscopy 10 Years; Sigmoidoscopy 5 Years; Cologuard 3 Years; FOBT 1 Year): Ages 45-75 11/26/2025 Diabetes Screening 01/16/2026 01/16/2023, 1 , [...] this encounter Medical Devices Implanted Type Area Mill Washer Device Identifier Shelf Expiration Date Model / Serial / Lot Envelope Tyrx Med Antibacteril - [id number] Implanted:Qty: 1 on 02/02/2023 by Bishop Jung MD at OR [facility] N/A: Spine Lumbar [employer] 08/21/2023 [id number] / / documented as of this encounter Visit Diagnoses Diagnosis CAD (coronary artery disease) Coronary atherosclerosis of unspecified type of vessel, [place] or graft documented in this encounter Care Teams Attendant Sales Relationship Specialty Start Date End Date Kelly Mitchell, [address] [place] [address] PCP - General Family Medicine 08/22/19 documented as of this encounter
--- OUTSIDE RECORDS SUMMARY | 2023-09-26 01:45 | External Medical Summary | Summary of Care ---
Author Name Unknown Organization [facility] Address [address] [place] [address] Phone [phone] Care Team Providers Care Overhead Cleaner Maintainer Name Role Phone Kelly Mitchell DO Primary Care Provider [phone] Reason for Visit * Reason Comments eRx-Medication Refill Encounter Details Date Type Department Care Team Description 03/19/2023 Refill Family Practice [facility] [address] [place] [address] Kelly [facility] DO [address] [facility] [address] Migraine variant Allergies No known active allergiesdocumented as of this encounter (statuses as of 03/19/2023) Medications Medication Sig Dispensed Refills Start Date End Date Status ASPIRIN 81 MG PO TABS One daily 0 Active ZYRTEC ALLERGY 10 MG PO TABS one daily 0 Active ALBUTEROL SULFATE (2.5 MG/3ML) 0.083[facility] Inhale via nebulizer. 0 Active HM VITAMIN [...] by mouth in the morning. 0 Active [place]-3 Fatty Acids (OMEGA 3 500) 500 MG [...] mouth daily. 90 Tablet 1 12/12/2022 Active Potassium Chloride ER 10 MEQ Oral Tablet Extended ReleaseIndication s:HTN, goal below 140/90 Take 1 Tablet by mouth daily. 90 Tablet 0 12/12/2022 Active Spironolactone 25 MG Oral Tablet [...] AT BEDTIME 90 Tablet 1 03/19/2023 Active Amitriptyline HCl 25 MG Oral Tablet (Elavil)Indicatio ns:Migraine variant Take 1 Tablet by mouth at bedtime. 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 Pneumonia due to other virus not elsewhere class ified 12/24/2002 04/29/2021 documented as of this encounter (statuses as of 03/19/2023) Immunizations Name Administration Dates Next Due COVID-19 mRNA, LNP-s, No Pre serve, 2-Dose Series (Conversion Logic) 04/09/2021,03/19/2021 Pneumococcal Conjugate Vacc, 13 Valent (Prevnar) [...] encounter Miscellaneous Notes * Telephone Encounter - Dom Juarez RPh - 03/19/2023 12:03 PM EDTSigned Prescriptions: Disp Refills Amitriptyline HCl 25 MG Oral Tablet (Elavi*90 Tab*1 Sig: TAKE 1 TABLET AT BEDTIMEAuthorizing Provider: KELLY MITCHELL User: DOM JUAREZ documented in this encounter Plan of Treatment Upcoming Encounters Date Type Specialty Care Team Description 05/21/2023 Cardiac Studies Cardiac Studies 05/28/2023 Office Visit Cardiology Kath Carlin PA-C [address] [place] [address] 06/12/2023 Office Visit Family Medicine Kelly Mitchell, DO [address] [facility] [place] [address] Scheduled Procedures Name Priority Associated Diagnoses Date/Ti [...] this encounter Medical Devices Implanted Type Area Post Acute Care Registered Nurse Device Identifier Shelf Expiration Date Model / Serial / Lot Envelope Tyrx Med Antibacteril - [id number] Implanted:Qty: 1 on 02/02/2023 by Bishop Jung MD at OR [facility] N/A: Spine Lumbar [employer] 08/21/2023 [id number] / / documented as of this encounter Visit Diagnoses Diagnosis Migraine variant Variants of migraine, not elsewhere classified, without mention of intractable migraine without mention of status migrainosus documented in this encounter Care Teams Overhead Cleaner Maintainer Relationship Specialty Start Date End Date Kelly Mitchell DO [address] [place] [address] PCP - General Family Medicine 08/22/19 documented as of this encounter
--- OUTSIDE RECORDS SUMMARY | 2023-09-26 01:45 | External Medical Summary | Summary of Care ---
Author Name Unknown Organization [facility] Address [address] [place] [address] Phone [phone] Care Team Providers Care Mechanical Technical Service Specialist Name Role Phone Farooq Rodríguez DO Primary Care Provider [phone] Reason for Visit * Reason Comments Procedure Staple removal Follow Up SCS Implant Encounter Details Date Type Department Care Team Description 02/16/2023 Office Visit [facility], [facility] [address] [place], [place] [id number] Reagan Bobo CRNP [address], [place] [id number] Follow-up exam*; Spinal cord stimulator status; Chronic pain syndrome; Lumbar radiculopathy; Lumbar radicular pain Allergies No known active allergiesdocumented as of this encounter (statuses as of 02/16/2023) Medications Medication Sig Dispensed Refills Start Date [...] by mouth in the morning. 0 Active [place]-3 Fatty Acids (OMEGA 3 500) 500 MG [...] the morning. 90 Tablet 3 12/11/2022 Active Amitriptyline HCl 25 MG Oral Tablet (Elavil)Indication s:Migraine variant Take 1 Tablet by mouth at bedtime. 90 Tablet 0 12/12/2022 Active Atorvastatin Calcium 40 MG Oral Tablet (Lipitor)Indicatio ns:CAD (coronary artery disease) Take 1 Tablet by mouth daily. 90 Tablet 1 12/12/2022 Active Potassium Chloride ER 10 MEQ Oral Tablet Extended ReleaseIndications :HTN, goal below 140/90 Take 1 Tablet [...] 02/16/2023 tiZANidine HCl 4 MG Oral Tablet (Zanaflex)Indicati [...] before bedtime. 120 mL 5 01/16/2023 Active Gabapentin 300 MG Oral Capsule (Neurontin)Indicat ions:Chronic bilateral low back pain with bilateral sciatica Take 1 Capsule by mouth at bedtime. 90 Capsule 0 12/12/2022 3 Discontinue d(End of Procedure) HYDROcodone-Acetam inophen 5-325 MG Oral Tablet Take 1 Tablet by mouth every 6 hours as needed for Pain, Moderate. 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 [...] as of this encounter (statuses as of 02/16/2023) Resolved Problems Problem Noted Date Resolved Date Encounter for surveillance of abnormal nevi 03/2004/29/2021 Dyslipidemia, goal LDL below 100 06/01/2014 12/08/2015 Bronchiectasis 04/18/2003 06/12/2017 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 Pneumonia due to other virus not elsewhere class ified 12/24/2002 04/29/2021 documented as of this encounter (statuses as of 02/16/2023) Immunizations Name Administration Dates Next Due COVID-19 [...] Sign Reading Time Taken Comments Blood Pressure 143/93 02/16/2023 8:49 AM EDT Pulse 73 02/16/2023 8:49 AM EDT Temperature 35.8 C (96.4 F) 02/16/2023 8:49 AM ED T Respiratory Rate - - Oxygen Saturation 97% 02/16/2023 8:49 AM EDT Room air Inhaled Oxygen Concentration - - Weight - - Height - - Body Mass Index - - documented in this encounter Progress Notes * JOSE MANUEL Felix - 02/16/2023 8:47 AM EDT Subjective Follow-up Placido Dean is a 62 year old male. Chief Complaint Patient presents with Procedure Staple removal Follow Up SCS Implant Nursing Notes: Leni Leonardo LPN 02/16/23 0851 Signed Procedure: 12/27/22 SCS trial, 02/02/23 SCS implant, Pain Meds: Elavil, Gabapentin, Tizanidine, Is patient on blood thinners? Aspirin Radiology: 09/23/22 MRI T-spine, 04/13/22 MRI L-spine Consults: Mark Oliver PT at [place], Location of pain: Patient presents for staple removal. 20 bar removed with patient tolerating. Mild erythema at staple sites. No drainage or swelling. Patient reports 85-90% pain coverage of SCS.Patient reports this is the best he has felt in years. Encouraged patient to keep walking to build e ndurance/strength. Patient happy with results. Leni Leonardo LPN HPI: Patient here for follow-up and staple removal after spinal cord stimulator implant was completed on02/02/2023. Patient denies any redness erythema has little bit of tenderness at the insertion sites. He denies any constitutional symptoms such as fever chills. Stimulator generator is turned on, andhe is getting good relief and reports about 85% relief, and he is very pleased with the results of the Spinal Cord Stimulator. He denies any recent falls or trauma. He denies any bowel or bladder incontinence. PMH: Patient Active Problem List Diagnosis Code Pericardial [...] daily ALBUTEROL SULFATE (2.5 MG/3ML) 0.083% IN [facility] Inhale via nebulizer. HM VITAMIN D3 2000 UNITS PO CAPS 1 CAPSULE DAILY albuterol (PROAIR HFA) 108 (90 BASE) MCG/ACT inhaler Inhale 2 Puffs by mouth 4 times a day. 1 Inhaler 1 Multiple Vitamins-Minerals (MENS MULTIPLE VITAMIN/LYCOPENE) TABS Take by mouth daily. vitamin e (AQUASOL E) 400 UNIT Capsule Take 1 Capsule by mouth in the morning. [place]-3 Fatty Acids (OMEGA 3 500) 500 MG [...] mouth in the morning. 90 Tablet 3 Amitriptyline HCl 25 MG Oral Tablet (Elavil) Take 1 Tablet by mouth at bedtime. 90 Tablet 0 Atorvastatin Calcium 40 MG Oral Tablet (Lipitor) Take 1 Tablet by mouth daily. 90 Tablet 1 Potassium Chloride ER 10 MEQ Oral Tablet Extended Release Take 1 Tablet by mouth daily. 90 Tablet 0 Spironolactone 25 MG Oral Tablet (Aldactone) Take 1 Tablet by mouth in the morning. 90 Tablet 1 SUMAtriptan Succinate 50 MG Oral Tablet (Imitrex) TAKE ONE TABLET BY MOUTH ONE TIME ONLY,REPEATAFTER TWO HOURS NEEDED MAX OF FOUR TABLETS 30 Tablet 0 tiZANidine HCl 4 MG Oral Tablet (Zanaflex) TAKE 1 TABLET BY MOUTH EVERY 6 HOURS NEEDED FOR MUSCLE SPASM 360 Tablet 0 Ipratropium-Albuterol 0.5-2.5 (3) MG/3ML Inhalation Solution (Duoneb) Inhale 3 mL via nebulizerin the morning and 3 mL at noon and 3 mL in the evening and 3 mL before bedtime. 120 mL 5 Mometasone Furo-Formoterol Fum 100-5 MCG/ACT Inhalation Aerosol Inhale 1 Puff by mouth as needed. (Patient not taking: Reported on 02/16/2023) Meclizine HCl 25 MG Oral Tablet (Antivert) Take 1 Tablet by mouth 3 times a day as needed for Dizziness. (Patient not taking: Reported on 02/16/2023) 270 Tablet 1 No current facility-administered medications for this visit. Past Surgical History: Procedure Laterality Date BRONCHOSCOPY W/ BRONCHIAL BIOPSY 11/19/2002 biopsy, open and bronchoscopy COLONOSCOPY, DIAGNOSTIC (RECTUM) 11/29/2012 COLONOSCOPY FLEXIBLE PROXIMAL DIAGNOSTIC performed by Cristy Dobbs DO at ENDOSCOPY [facility] COLONOSCOPY, DIAGNOSTIC (RECTUM) 11/26/2015 diverticulosis, repeat 10 yrs/COLONOSCOPY FLEXIBLE PROXIMAL DIAGNOSTIC performed by Cristy Dobbs DO at ENDOSCOPY [facility] DENTAL SURGERY PROCEDURE NEC Dental Surgery Procedure DRAINAGE OF HEART SAC 11/19/2002 [facility] EVAL NEUROSTIM PULSE GEN, W/ REPROGRAM N/A 02/02/2023 NEUROSTIMULATOR PULSE GENERATOR/ TRANSMITTER, WITH INTRAOPERATIVE OR SUBSEQUENT PROGRAMMING performed by Bishop Jung MD at OR [facility] IMPLANT EPIDURAL NEUROELECTRODES N/A 02/02/2023 PERCUTANEOUS IMPLANTATION NEUROSTIMULATOR EPIDURAL performed by Bishop Jung MD at OR [facility] IMPLANT SPINAL NEURORECEIVER N/A 02/02/2023 INSERTION OR REPLACEMENT SPINAL NEUROSTIMULATOR GENERATOR performed by Bishop Jung MD at[facility] INFORMATION 03/2021 Heart Cath. REMOVAL OF WRIST LESION Review of patient's allergies indicates: No Known Allergies Review of Systems Constitutional: Negative. Negative for chills, fatigue and fever. Respiratory: Negative for cough, shortness of breath and wheezing. Cardiovascular: Negative. Negative for chest pain and leg swelling. Gastrointestinal: Negative. Endocrine: Negative. Negative for polydipsia and polyuria. Genitourinary: Negative. Musculoskeletal: Positive for back pain and gait problem. Negative for myalgias. Skin: Negative. Negative for color change, rash and wound. Allergic/Immunologic: Negative. Negative for immunocompromised state. Hematological: Negative. Does not bruise/bleed easily. Psychiatric/Behavioral: Negative. Negative for sleep disturbance. Objective BP 143/93 (BP Site: Left Arm, BP Position: Sitting, BP Cuff Size: Large) | Pulse 73 | Temp 35.8 C(96.4 F) (Temporal Artery) | SpO2 97% Comment: Room air Physical Exam Constitutional: General: He is awake. Appearance: Normal appearance. He is well-developed. He is morbidly obese. Cardiovascular: Rate and Rhythm: Normal rate and regular rhythm. Heart sounds: No murmur heard. Pulmonary: Effort: Pulmonary effort is normal. Breath sounds: Normal breath sounds. Musculoskeletal: Lumbar back: Tenderness and bony tenderness present. Skin: General: Skin is warm and dry. Capillary Refill: Capillary refill takes less than 2 seconds. Coloration: Skin is not mottled. Findings: No bruising or erythema. Comments: Well-healing surgical incisions Neurological: Mental Status: He is alert, oriented to person, place, and time and easily aroused. GCS: GCS eye subscore is 4. GCS verbal subscore is 5. GCS motor subscore is 6. Cranial Nerves: Cranial nerves 2-12 are intact. Sensory: Sensation is intact. Motor: Motor function is intact. Coordination: Coordination is intact. Gait: Gait abnormal. Psychiatric: Attention and Perception: Attention and perception normal. Mood and Affect: Mood and affect normal. Speech: Speech normal. Behavior: Behavior normal. Behavior is cooperative. Thought Content: Thought content normal. Cognition and Memory: Cognition and memory normal. Judgment: Judgment normal. IMAGING Date 09/23/2022 MRI T SPINE FINDINGS: The study is partially motion degraded. There is preservation of the thoracic kyphosis without evidence of an acute fracture or traumatic listhesis. No evidence of a suspicious osseous lesion, paravertebral mass, or epidural fluid collection. A small T1 and T2 hyperintense lesion of the T9 vertebral body may be secondary to a small hemangioma. There are dessicative changes of the intervertebral discs with mild decrease in disc space height throughout the thoracic spine most pronounced from T7-T11. There is prominent dorsal epidural fat throughout the thoracic canal most pronounced from T3-T11 resulting in mild narrowing of the thecal sac. No evidence of a significant canal or foraminal stenosis on a degenerative basis. The thoracic cord is normal in morphology and signal. IMPRESSION: Motion degraded study. 1. No acute osseous abnormality of the thoracic spine. 2. Dorsal epidural lipomatosis without significant canal or foraminal stenosis on a degenerative basis. Date 04/13/2022 MRI L SPINE FINDINGS: There are 5 lumbar-type vertebral bodies and S1 is incorporated into the sacrum. The L5-S1 disc space is well-formed. Overall alignment of the lumbar spine is anatomic, with preserved lordosis. There is no acute fracture deformity or traumatic subluxation. Vertebral body heights are maintained. Intervertebral disc spaces are preserved. Focal T2 hypointense lesions in the left iliac wing are likely bone islands. No destructive osteolytic processes are seen. There are mild multilevel degenerative changes without significant spinal canal stenosis or neural foraminal narrowing. The conus medullaris terminates normally at L1-L2. Distal cord is unremarkable. There is eccentric left T2 hypointense thickening of the distal thecal sac, most likely hemosiderin deposition from remote hemorrhage in the neuraxis. 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 Mild diffuse dorsal paraspinal muscle fatty atrophy. Mild thoracolumbar dependent subcutaneous recumbent edema. IMPRESSION: No acute fracture deformity, traumatic subluxation, significant spinal canal stenosis or neural foraminal narrowing. Eccentric left T2 hypointense thickening of the distal thecal sac, most likely hemosiderin deposition from remote hemorrhage in the neuraxis. 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 ASSESSMENT/PLAN: Follow-up exam (Primary) Spinal cord stimulator status - Follow-ed by Spinal Cord stimulator merchandising representative. Chronic pain syndrome - Follow-ed by Spinal Cord stimulator merchandising representative. Lumbar radiculopathy - Follow-ed by Spinal Cord stimulator merchandising representative. Lumbar radicular pain - Follow-ed by Spinal Cord stimulator merchandising representative. JOSE MANUEL Mares documented in this encounter Nursing Notes * Leni Leonardo LPN - 02/16/2023 8:41 AM EDT Procedure: 12/27/22 SCS trial, 02/02/23 SCS implant, Pain Meds: Elavil, Gabapentin, Tizanidine, Is patient on blood thinners? Aspirin Radiology: 09/23/22 MRI T-spine, 04/13/22 MRI L-spine Consults: Mark Oliver PT at [place], Location of pain: Patient presents for staple removal. 20 bar removed with patient tolerating. Mild erythema at staple sites. No drainage or swelling. Patient reports 85-90% pain coverage of SCS.Patient reports this is the best he has felt in years. Encouraged patient to keep walking to build e ndurance/strength. Patient happy with results. Leni Leonardo LPN documented in this encounter Plan of Treatment Upcoming Encounters Date Type Specialty Care Team Description 03/01/2023 Office Visit Pain Medicine Reagan Bobo CRNP [address] [place] [address] [place] [phone] 03/08/2023 Nurse Only Pain Medicine [facility], Nurse Pain Medicine [address] [place] [id number] 05/21/2023 Cardiac Studies Cardiac Studies 05/28/2023 Office Visit Cardiology Kath Carlin PA-C [address] [place] [id number] 06/12/2023 Office Visit [facility] Medicine Farooq Rodríguez, DO [address] [facility] [address] Scheduled Procedures Name Priority Associated Diagnoses Date/Ti [...] 04/29/2022 04/29/2021 Influenza Vaccine (FLU shot) (#1) 2022 09/01/2021, 09/02/2020, 09/02/2020, Additional history exists GFR [...] this encounter Medical Devices Implanted Type Area Bakeshop Cleaner Device Identifier Shelf Expiration Date Model / Serial / Lot Envelope [employer]x Med Antibacteril - [id number] Implanted:Qty: 1 on 02/02/2023 by Bishop Jung MD at OR [facility] N/A: Spine Lumbar [employer] 08/21/2023 [id number] / / documented as of this encounter Visit Diagnoses Diagnosis Follow-up exam- Primary Unspecified follow-up examination Spinal cord stimulator status Other postprocedural status Chronic pain syndrome Lumbar radiculopathy Thoracic or lumbosacral neuritis or radiculitis, unspecified Lumbar radicular pain Thoracic or lumbosacral neuritis or radiculitis, unspecified documented in this encounter Care Teams Mechanical Technical Service Specialist Relationship Specialty Start Date End Date Farooq Rodríguez, DO [address] [facility] [place] [address] PCP - General Family Medicine 08/22/19 documented as of this encounter"
--- OUTSIDE RECORDS SUMMARY | 2023-09-26 01:45 | External Medical Summary | Summary of Care ---
Author Name Unknown Organization [facility] Address [address] [place] [address] Phone [phone] Care Team Providers Care Stake Setter Name Role Phone Farooq Rodríguez DO Primary Care Provider [phone] Reason for Visit * Reason Comments Return Visit 4 wk f/u SCS implant 02/02/23 Pain Entire low back, int ermittent pressure. No trauma, ongoing. Pt is very pleased with results of SCS implant. Encounter Details Date Type Department Care Team Description 03/01/2023 Office Visit [facility], [facility] [address], [place] [id number] Reagan Bobo CRNP [address], [place] [id number] Follow-up exam*; Spinal cord stimulator status; Chronic pain syndrome; Lumbar radicular pain Allergies No known active allergiesdocumented as of this encounter (statuses as of 03/01/2023) Medications Medication Sig Dispensed Refills Start Date [...] by mouth in the morning. 0 Active [place]field-3 Fatty Acids (OMEGA 3 500) 500 MG [...] 25 MG Oral Tablet (Elavil)Indications :Migraine variant Take 1 Tablet by mouth at bedtime. 90 Tablet 0 12/12/2022 Active Atorvastatin Calcium 40 MG Oral Tablet (Lipitor)Indication s:CAD (coronary artery disease) Take 1 Tablet by mouth daily. 90 Tablet 1 12/12/2022 Active Potassium Chloride ER 10 MEQ Oral Tablet Extended ReleaseIndications: HTN, goal below 140/90 Take 1 Tablet [...] before bedtime. 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 Sex Assigned at Date Recorded Not on file Job Start Date Occupation Industry Not on file Not on file Not on file documented as of this encounter Last Filed Vital Signs Vital Sign Reading Time Taken Comments Blood Pressure 124/65 03/01/2023 8:50 AM EDT Pulse 79 03/01/2023 8:50 AM EDT Temperature 36.6 C (97.9 F) 03/01/2023 8:50 AM ED T Respiratory Rate - - Oxygen Saturation 98% 03/01/2023 8:50 AM EDT Inhaled Oxygen Concentration - - Weight - - Height - - Body Mass Index - - documented in this encounter Progress Notes * JOSE MANUEL Felix - 03/01/2023 8:49 AM EDT Subjective Placido Dean is a 62 year old male. Chief Complaint Patient presents with Return Visit 4 wk f/u SCS implant 02/02/23 Pain Entire low back, intermittent pressure. No trauma, ongoing. Pt is very pleased with results of SCS implant. Nursing Notes: Sheree Mcgrath RN 03/01/23 0854 Signed Aggravating factors: laying on right side or back Alleviating factors: SCS, laying on left side Imaging: MRI T spine 09/23/22, MRI L spine 04/13/22 Previous Surgery: SCS implant 02/02/23 (trial 12/27/22) Previous Injections: none Blood thinners: ASA 81mg Pain medications: zanaflex Diabetic: No A1C 5.3 on 05/30/22 Referrals: Farooq Rodríguez PCP consults: PT: Mark PARITDA [place] HPI: Patient here for follow-up after spinal cord stimulator implant was completed on 02/02/2023. Patient denies any redness erythema has little bit of tenderness at the insertion sites. He denies any constitutional symptoms such as fever chills. Stimulator generator is turned on, and he is getting goodrelief and still reporting about 85% relief, and he is very pleased with the results of the Spinal Cord Stimulator. He denies any recent falls or trauma. He denies any bowel or bladder incontinence. He is meeting with SCS rep next week to see if there is any more fine adjustments they can make to help with the remaining pain. 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 (Patient not taking: Reported on 02/16/2023) Multiple Vitamins-Minerals (MENS MULTIPLE VITAMIN/LYCOPENE) TABS Take by mouth daily. vitamin e (AQUASOL E) 400 UNIT Capsule Take 1 Capsule by mouth in the morning. [place]field-3 Fatty Acids (OMEGA 3 500) 500 MG [...] taking: Reported on 02/16/2023) 270 Tablet 1 tiZANidine HCl 4 MG Oral Tablet (Zanaflex) TAKE 1 TABLET BY MOUTH EVERY 6 HOURS NEEDED FOR MUSCLE SPASM 360 Tablet 0 Ipratropium-Albuterol 0.5-2.5 (3) MG/3ML Inhalation Solution (Duoneb) Inhale 3 mL via nebulizerin the morning and 3 mL at noon and 3 mL in the evening and 3 mL before bedtime. 120 mL 5 No current facility-administered medications for this visit. Past Surgical History: Procedure Laterality Date BRONCHOSCOPY W/ BRONCHIAL BIOPSY 11/19/2002 biopsy, open and bronchoscopy COLONOSCOPY, DIAGNOSTIC (RECTUM) 11/29/2012 COLONOSCOPY FLEXIBLE PROXIMAL DIAGNOSTIC performed by Cristy Dobbs DO at ENDOSCOPY [facility] COLONOSCOPY, DIAGNOSTIC (RECTUM) 11/26/2015 diverticulosis, repeat 10 yrs/COLONOSCOPY FLEXIBLE PROXIMAL DIAGNOSTIC performed by Cristy Dobbs DO at ENDOSCOPY [facility] DENTAL SURGERY PROCEDURE NEC Dental Surgery Procedure DRAINAGE OF HEART SAC 11/19/2002 [facility] EVAL NEUROSTIM PULSE GEN, W/ REPROGRAM N/A 02/02/2023 NEUROSTIMULATOR PULSE GENERATOR/ TRANSMITTER, WITH INTRAOPERATIVE OR SUBSEQUENT PROGRAMMING performed by Bishop Jung MD at OR [facility] IMPLANT EPIDURAL NEUROELECTRODES N/A 02/02/2023 PERCUTANEOUS IMPLANTATION NEUROSTIMULATOR EPIDURAL performed by Bishop Jung MD at OR [facility] IMPLANT SPINAL NEURORECEIVER N/A 02/02/2023 INSERTION OR REPLACEMENT SPINAL NEUROSTIMULATOR GENERATOR performed by Bishop Jung MD atOR [facility] INFORMATION 03/2021 Heart Cath. REMOVAL [...] Negative. Negative for sleep disturbance. Objective BP 124/65 (BP Site: Left Arm, BP Position: Sitting, BP Cuff Size: Large) | Pulse 79 | Temp 36.6 C(97.9 F) (Temporal Artery) | SpO2 98% Physical Exam Constitutional: General: He is awake. Appearance: Normal appearance. He is well-developed. He is morbidly obese. Cardiovascular: Rate and Rhythm: Normal rate and regular rhythm. Heart sounds: No murmur heard. Pulmonary: Effort: Pulmonary effort is normal. Breath sounds: Normal breath sounds. Musculoskeletal: Lumbar back: No tenderness or bony tenderness. Normal range of motion. Skin: General: Skin is warm and dry. [...] body may be secondary to a small he mangioma. There are dessicative changes of the intervertebral [...] are likely bone islands. No destructive osteolytic processesare seen. There are mild multilevel degenerative changes [...] chronic intraspinal hemorrhage. ASSESSMENT/PLAN: Follow-up exam (Primary) - Follow-ed by Spinal Cord stimulator veterans contact representative. Spinal cord stimulator status - Follow-ed by Spinal Cord stimulator veterans contact representative. Chronic pain syndrome - Follow-ed by Spinal Cord stimulator veterans contact representative. Lumbar radicular pain - Follow-ed by Spinal Cord stimulator veterans contact representative. JOSE MANUEL Mares documented in this encounter Nursing Notes * Sheree Mcgrath RN - 03/01/2023 8:46 AM EDT Chief Complaint Patient presents with Return Visit 4 wk f/u SCS implant 02/02/23 Pain Entire low back, intermittent pressure. No trauma, ongoing. Pt is very pleased with results of SCS implant. Aggravating factors: laying on right side or back Alleviating factors: SCS, laying on left side Imaging: MRI T spine 09/23/22, MRI L spine 04/13/22 Previous Surgery: SCS implant 02/02/23 (trial 12/27/22) Previous Injections: none Blood thinners: ASA 81mg Pain medications: zanaflex Diabetic: No A1C 5.3 on 05/30/22 Referrals: Farooq Rodríguez PCP consults: PT: Mark Bullock documented in this encounter Plan of Treatment Upcoming Encounters Date Type Specialty Care Team Description 03/08/2023 Nurse Only Pain Medicine [facility], Nurse Pain Medicine [address] [facility] [place] [id number] 05/21/2023 Cardiac Studies Cardiac Studies 05/28/2023 Office Visit Cardiology Kath Carlin PA-C [address] [place] [id number] 06/12/2023 Office Visit Family Medicine Farooq Rodríguez DO [address] [facility] [place] [id number] Scheduled Procedures Name Priority Associated Diagnoses Date/Ti me COLONOSCOPY FLEXIBLE PROXIMA L DIAGNOSTIC Recall Encounter for screening colonoscopy Health Maintenance Due Date Last Done Comments Albumin/Creatinine Ratio 1980 Cologuard: Ages 45-75 2007 FOBT: Ages 45-75 2007 Sigmoidoscopy: Ages 45-75 2007 COVID-19 Vaccine (3 - Booster for Pfizer series) 06/04/2021 04/09/2021, 03/19/2021 Depression Screening, Annual for Pts 12 and Over 04/29/2022 04/29/2021 *NEPHROLOGY REFERRAL DUE TO RESISTANT HTN 02/19/2023 Influenza Vaccine (FLU shot) (Season Ended) 2023 [...] this encounter Medical Devices Implanted Type Area Magnetic Tape Typewriter Operator Device Identifier Shelf Expiration Date Model / Serial / Lot Envelope [employer]x Med Antibacteril - [id number] Implanted:Qty: 1 on 02/02/2023 by Bishop Jung MD at OR [facility] N/A: Spine Lumbar [employer] 08/21/2023 [id number] / / documented as of this encounter Visit Diagnoses Diagnosis Follow-up exam- Primary Unspecified follow-up examination Spinal cord stimulator status Other postprocedural status Chronic pain syndrome Lumbar radicular pain Thoracic or lumbosacral neuritis or radiculitis, unspecified documented in this encounter Care Teams Stake Setter Relationship Specialty Start Date End Date Farooq Rodríguez, DO [address] [facility] [place] [address] PCP - General Family Medicine 08/22/19 documented as of this encounter"
--- OUTSIDE RECORDS SUMMARY | 2023-09-26 01:46 | External Medical Summary | Summary of Care ---
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] Chronic pain syndrome [G89.4] Procedures IMPLANT SPINAL NEURORECEIVER IMPLANT EPIDURAL NEUROELECTRODES EVAL NEUROSTIM PULSE GEN, W/ REPROGRAM INSERTION OR REPLACEMENT SPINAL NEUROSTIMULATOR GENERATOR PERCUTANEOUS IMPLANTATION NEUROSTIMULATOR EPIDURAL NEUROSTIMULATOR PULSE GENERATOR/ TRANSMITTER, WITH INTRAOPERATIVE OR SUBSEQUENT PROGRAMMING Referral ID Status Reason Start Date Expiration Date Visits Re quested Visits Authorized [id number] Encounter Details Date Type Department Care Team Description 02/02/2023 Hospital Encounter OR GL, Operating Room, [facility] - 4th Floor [address] [place] [address] Bishop Jung MD [address] [facility] [place] [address] Allergies No known active allergiesdocumented as of this encounter (statuses as of 02/03/2023) Medications Medication Sig Dispensed Refills Start Date End Date Status ASPIRIN 81 MG PO TABS One daily 0 Active ZYRTEC ALLERGY 10 MG PO TABS one daily 0 Active ALBUTEROL SULFATE (2.5 MG/3ML) 0.083% IN NEBU Inhale via nebulizer . 0 Active HM VITAMIN D3 2000 UNITS [...] by mouth in the morning. 0 Active [place]-3 Fatty Acids (OMEGA 3 500) 500 MG [...] Release (Protonix)Indication s:Gastroesophageal reflux disease without esophagitis Take 1 Tablet by mouth in the morning. 90 Tablet 1 12/12/2022 Active Lisinopril 40 MG Oral TabletIndications:HT N, goal below 140/90 Take 1 Tablet by mouth in the morning. 90 Tablet 3 12/11/2022 Active Amitriptyline HCl 25 MG Oral Tablet (Elavil)Indications: Migraine variant Take 1 Tablet by mouth at bedtime. 90 Tablet 0 12/12/2022 Active Atorvastatin Calcium 40 MG Oral Tablet (Lipitor)Indications :CAD (coronary artery disease) Take 1 Tablet by mouth daily. 90 Tablet 1 12/12/2022 Active Potassium Chloride ER 10 MEQ Oral Tablet Extended ReleaseIndications:H TN, goal below 140/90 Take 1 Tablet [...] for Dizziness. 270 Tablet 1 12/12/2022 Active Gabapentin 300 MG Oral Capsule (Neurontin)Indicatio ns:Chronic bilateral low back pain with bilateral sciatica Take 1 Capsule by mouth at bedtime. 90 Capsule 0 12/12/2022 Active tiZANidine HCl 4 MG Oral Tablet (Zanaflex)Indication s:Acute low back pain without sciatica, unspecified back pain laterality TAKE 1 TABLET BY MOUTH EVERY 6 HOURS NEEDED FOR MUSCLE SPASM 360 Tablet 0 12/12/2022 Active HYDROcodone-Acetamin ophen 5-325 MG Oral Tablet Take 1 Tablet by mouth every 6 hours as needed for Pain, Moderate. 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 02/10/2021 Pneumonia due to other virus not elsewhere class ified 12/24/2002 04/29/2021 documented as of this encounter (statuses as of 02/03/2023) Immunizations Name Administration Dates Next Due COVID-19 [...] Sign Reading Time Taken Comments Blood Pressure 130/92 02/02/2023 12:12 PM EDT Pulse 74 02/02/2023 12:12 PM EDT Temperature 36.2 C (97.2 F) 02/02/2023 12:12 PM E DT Respiratory Rate 18 02/02/2023 12:12 PM EDT Oxygen Saturation 94% 02/02/2023 12:12 PM EDT Inhaled Oxygen Concentration - - Weight 126.1 kg (278 lb) 02/02/2023 7:48 AM EDT Height 172.7 cm (5' 8") 02/02/2023 7:48 AM EDT Body Mass Index 42.27 02/02/2023 7:48 AM EDT documented in this encounter Discharge Instructions * Discharge Instr - AVS* Bishop Jung MD - 02/02/2023 11:12 AM EDT Discharge Date: 02/02/2023 Check your Patient Education Brochure for further information. If you have any further questions call your physician at [phone]. The information below provides you with the instructions and the list of medications you need to betaking following discharge from the hospital. If you have any questions, please ask before leaving. If you have questions, you can reach us at the numbers above. SPINAL CORD STIMULATOR IMPLANT Wound Care: Keep the insertion site and dressings clean and dry until they are removed in clinic. Do not showeror bathe. Sponge baths are OK. Activity: You may resume your regular diet as tolerated. Return to normal activities slowly as tolerated, but do not bend or twist through your spine. No lifting overhead. Do not lift more than 10 pounds for 30 days. Walking is very important for healing and your rehabilitation. Initially, you should walk at least two to three times daily. Then slowly and gradually increase your distance as your tolerance for physical activity increases. You may go up and down stairs carefully. You may resume home medications. Because you received sedation, for the next 24 hours, you should NOT: Drive a vehicle, operate power machinery or power equipment Drink alcoholic beverages, including beer Make important decisions, such as signing contracts, etc. Notify physician for: Temperature greater than 101 degrees F. Increased pain. Calf swelling or tenderness. Drainage or redness of the incision. Chest pain or shortness of breath. Please contact your stimulator rep for any device issues. Date you may return to work or school: 02/05/23 with the restrictions above documented in this encounter Progress Notes * Bishop Jung MD - 02/02/2023 11:12 AM EDT Patient tolerated procedure well. Neurogically intact and hemodynamically stable. He was dischargedhome in good condition with appropriate follow up. documented in this encounter H&P Notes * Bishop Jung MD - 02/02/2023 9:24 AM EDT Subjective: Placido Dean is a 62 year old male who we are seeing for SCS trial lead pull. Today, he states greater than 50% relief of back and leg pain during SCS trial period. Here for implant. All of his questions were answered. MEDICATIONS: No outpatient medications have been marked as taking for the 01/03/23 encounter (Office Visit) with Bishop Jung MD. Current Facility-Administered Medications for the 01/03/23 encounter (Office Visit) with Bishop Jung MD Medication ceFAZolin (Ancef) inj 3 g ALLERGIES: Patient has no known allergies. 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 Pericardial effusion 01/2003 idiopathic, [place] [facility] [place] Pilonidal cyst without infection Past Surgical History: Procedure Laterality Date BRONCHOSCOPY W/ BRONCHIAL BIOPSY 2002 biopsy, open and bronchoscopy COLONOSCOPY, DIAGNOSTIC (RECTUM) 11/29/2012 COLONOSCOPY FLEXIBLE PROXIMAL DIAGNOSTIC performed by Cristy Dobbs DO at [facility] COLONOSCOPY, DIAGNOSTIC (RECTUM) 11/26/2015 diverticulosis, repeat 10 yrs/COLONOSCOPY FLEXIBLE PROXIMAL DIAGNOSTIC performed by Cristy Dobbs DO at ENDOSCOPY [facility] DENTAL SURGERY PROCEDURE NEC Dental Surgery Procedure DRAINAGE OF HEART SAC 2002 [facility] [place] REMOVAL OF WRIST LESION SOCIAL AND FAMILY HISTORY: Social History Tobacco Use Smoking status: Never Smokeless tobacco: Former Types: Chew Quit date: 04/21/2012 Tobacco comments: quit Substance Use Topics Alcohol use: Yes Alcohol/week: 5.0 standard drinks Types: 6 12 oz of beer per week Vaping/E-Cigarette Use Vaping/E-Cigarette Use Never User Vaping/E-Cigarette Substances Vaping/E-Cigarette Devices Family History Problem Relation Age of Onset Dementia Father Other (Other) Brother accident Genitourinary Disorder Father stones Hypertension Father No Past Hx Mother Cancer Grandmother (Paternal) pancreas Other (Other) Grandfather (Paternal) blood poisoning Lung Disorder Grandfather (Maternal) Alcohol and Other Disorders Associated Grandfather (Maternal) No Past Hx Grandmother (Maternal) REVIEW OF SYSTEMS: A comprehensive ROS was performed and is negative except where noted in the HPI. Objective: Physical Exam: Physical examination: Vitals: BP 152/93 | Pulse 83 | Temp 35.7 C (96.3 F) (Temporal Artery) | Resp 18 | Ht 1.727 m (5' 8") | Wt 126.1 kg (278 lb) | SpO2 97% | BMI 42.27 kg/m | BSA 2.46 m Generally: Alert and Awake, No acute distress. Speech was appropriate and coherent. HEENT: Normoephalic/Atraumatic, No scleral icterus, Mucous membranes moist. Skin: No rashes or lesions at exposed areas with normal warmth. Inserstion site c/d/i. No erythema or drainage. Neck: Trachea was midline, No gross masses Pulmonary: Respiratory effort was within normal limits, No audible wheezes Abdomen: Nondistended Psych: Normal mood and affect. Neuromuscular: MMT 5/5 intact bilaterally Sensation to light touch was intact Reflexes were 2+ symmetrical Assessment: Placido Dean is a 62 year old year-old male who returns with: ICD-10-CM 1. Chronic pain syndrome G89.4 2. Lumbar radiculopathy M54.16 Plan: Proceed with SCS implant documented in this encounter Nursing Notes * Cecy Bonner RN - 02/02/2023 12:18 PM EDT [address] [address] SameDay Surgery Discharge Note Name: Placido Dean Date: 02/02/2023 Time: 12:18 PM Discharge Disposition: Home Responsible adult as escort home: yes Transport Mode: Ambulatory Accompanied by: Gaviota Bonner RN To: Car Belongings with patient: Yes Patient meets criteria to be transferred or discharged. * Cecy Bonner RN - 02/02/2023 11:55 AM EDT Post Anesthesia Care Unit Discharge Note [address] [address] Dept. Placido Dean Vital Signs Stable Discharged from PACU as per discharge criteria (see discharge criteria sheet). Time: 1155 Reported to: na Taken to In/ Out Surgery, accompanied by Gaviota Bonner RN. Transported via: Stretcher Belongings with Patient: Not Applicable Prescriptions on Chart: Yes Patient meets criteria to be transferred or discharged * Beatriz Keyes RN - 01/09/2023 1:46 PM EST Patient identified by: name/birthdate Person taught: Patient Optime case procedure confirmed with patient/parent/guardian - no consent signed. Laterality confirmed as N/a Surgery date at time of Pre-Surgery Center Encounter: 02/02/2023. What procedure is patient having? SCS Implant([employer]tr[employer]) 2 lead, rechargeable batter In an emergency, is patient willing to accept blood products or blood transfusion? Unknown. Do you need to place a blood bank order? No Anesthesia consent pool notified? N/A Anesthesia evaluation requested per case documentation? No Preop Evaluation Requested? No PATIENT EDUCATION SCREENING Person taught: Patient Motivation Level: Asks Questions and Eager to Learn Language Barrier: No Physical Barrier: N/A METHOD: Lecture-telephone interview Patient Preferred Learning Methods: Lecture-Telephone interview Health History interview completed, questions answered, and the following patient instructions provided via telephone interview: Preoperative bathing instructions General preoperative instructions Medication instructions NPO instructions - If your normal morning routine take Atorvastatin, Levothyroxine, and Protonix the morning of surgery. If you take metformin, hold it the evening before surgery as well. Pt instructed to stop Multivitamin, Fish Oil, and Vitamin E 10 days prior. Pt to ask surgeon's office for low dose ASA instructions. OUTCOME: State / Describe / Explain and Needs Reinforcement documented in this encounter OR Notes * OR Surgeon - Bishop Jung MD - 02/02/2023 11:09 AM EDT Operative Note Procedure Date: 02/02/2023 Placido Dean Date of : 1960 Physician: Jhoan Jung M.D. PREOPERATIVE DIAGNOSIS: Failed back surgical syndrome, chronic pain syndrome POSTOPERATIVE DIAGNOSIS: Same OPERATION PERFORMED: Spinal cord stimulator dual percutaneous lead implantation without intraoperative testing using a Telormedixtronic device. ESTIMATED BLOOD LOSS: Minimal SPECIMENS AND DRAINS: None INDICATIONS FOR PROCEDURE: This is a 62 year old year old male with a clinical picture consistent with failed back surgical syndrome and chronic pain syndrome based on history, clinical findings and imaging. After extensive conversation with the patient including surgical and conservative options, a successful trial of spinal cord stimulation was performed and the patient therefore presented today for permanent implantation. PROCEDURE AND FINDINGS: The patient was greeted in the pre procedure holding area. The risk, benefits and alternatives to the procedure were again reviewed with the patient and written informed consent was placed in the chart. Prior to the procedure a time out was completed, verifying correct patient, procedure, site, positioning, and implants and/or special equipment. The patient was taken to the procedure room and positioned prone on the fluoroscopy table and anesthetized under general anesthesia. The skin was prepped and draped in the usual sterile fashion.Then a coal or ore controller film was taken to identify the L1 vertebral body and the endplates were squared off. The overlying skin and subcutaneous tissue was anesthetized using a 25-gauge 1-1/2-inch needle with 0.5% bupivacaine for a total volume of 10 mL. Next, a small midline incision was made and the tissue was dissected down to the thoracodorsal fascia. Using loss of resistance technique, one lead was introduced into the epidural space after obtaining loss of resistance at the T12-L1 interspace. Aspiration was negative for heme or CSF, and lead position was confirmed using AP and lateral fluoroscopy. This was then repeated on the contralateral side for two leads total. Leads were advanced to the top of the T8 and T9 vertebral bodies. The leads were anchored to the thoracodorsal fascial using an anchoring device and 1 Ethibond suture. Next, an IPG pocket was created in the right flank using blunt and sharp dissection. This location was agreed on by the patient in pre-op holding. A tunneling device was used to pass the SCS leads from the midline incision to the newly created pocket. There, they were connected to an IPG and impedances were verified to be appropriate. The incisions were copiously irrigated with 500mL NS mixed with 1g ancef. The IPG was placed into a Tyrex pouch and placed within the pocket. Bleeding was controlled using electrocautery, staying far away from the SCS leads. The incision wasthen approximated with 2-0 vicyl. Next, the skin was closed with bar and dermabond and the incisions were dressed appropriately. The patient was then transferred to the recovery area in stable condition. The stimulator will be turned on at follow up visit next week. COMPLICATIONS: None Comment(s): None. documented in this encounter Plan of Treatment Upcoming Encounters Date Type Specialty Care Team Description 02/09/2023 Nurse Only Pain Medicine [facility], Nurse Pain Medicine [address] [place] [address] 02/16/2023 Office Visit Pain Medicine Reagan Bobo CRNP [address] [place] [address] 03/01/2023 Office Visit Pain Medicine Reagan Bobo CRNP [address] [place] [address] 05/21/2023 Cardiac Studies Cardiac Studies 05/28/2023 Office Visit Cardiology Kath Carlin PA-C [address] [place] [address] 06/12/2023 Office Visit Family Medicine Farooq Rodríguez DO [address] [place] [address] Scheduled Procedures Name Priority Associated Diagnoses Date/Ti [...] 2022 09/01/2021, 09/02/2020, 09/02/2020, Additional history exists *NEPHROLOGY REFERRAL DUE TO RESISTANT HTN 01/06/2023 GFR - Renal Function 01/16/2024 01/16/2023, 09/18/2022, [...] this encounter Medical Devices Implanted Type Area Sql Server D[employer] Device Identifier Shelf Expiration Date Model / Serial / Lot Envelope Tyrx Med Antibacteril - [id number] Implanted:Qty: 1 on 02/02/2023 by Bishop Jung MD at OR [facility] N/A: Spine Lumbar [employer] 08/21/2023 [id number] / / documented as of this encounter Procedures Procedure Name Priority Date/Time Associated Diagnosis Comments FLUORO INTERVENTIONAL PAIN PROCEDURE NONBILLABLE Routine 02/02/2023 10:49 AM EDT documented in this encounter Results * FLUORO INTERVENTIONAL PAIN PROCEDURE NONBILLABLE (02/02/2023 10:49 AM EDT) Narrative Scheduling, Silent - 02/02/2023 10:49 AM EDT This procedure will not be read by a Radiologist. Please see operative note. Bishop Jung MD RAD FLUOROSCOPY documented in this encounter Administered Medications Inactive Administered Medications - up to 3 most recent administrations Medication Order MAR Action Action Date Dose Rate Site isolyte-S pH 7.4 infusion Intravenous, at 10 mL/hr, Plasma-LYTE 148, isolyte-S, and isolyte-S pH 7.4 are considered equivalent - including for MAR barcode scanning., CONTINUOUS, Starting on Sun02/02/23 at 0830, Until Sun02/02/23 at 1619 Restarted 02/02/2023 10:16 AM EDT Continue from Pre-Op 02/02/2023 9:35 AM EDT 10 mL/hr New Bag 02/02/2023 8:18 AM EDT 10 mL/hr documented in this encounter Active and Recently Administered Medications Times are shown in EDT. Scheduled Medication Order 01/31/2023 02/01/2023 02/02/2023 ceFAZolin (Ancef) in NSS ivpb 3 g (COMPLETED) 3 g, IV Piggyback, ONCE, 1 dose, On Sun02/02/23 at 0830 0943 (Given - Provid er: Maribeth Meneses CRNA) Continuous Medication Order 01/31/2023 02/01/2023 02/02/2023 isolyte-S pH 7.4 infusion Intravenous, at 10 mL/hr, Plasma-LYTE 148, isolyte-S, and isolyte-S pH 7.4 are considered equivalent - including for MAR barcode scanning., CONTINUOUS, Starting on Sun02/02/23 at 0830, Until Sun02/02/23 at 1619 0818 (New Bag - Prov ider: Paula Holm RN)0935 (Continue from Pre-Op - Provider: Maribeth Meneses CRNA)1015 (Paused - Provider: Maribeth Meneses CRNA - Comment: Switch to gravity)1016 (Restarted - Provider: Maribeth Meneses CRNA)1036 (Anes Intra-Op Fluid - Provider: Maribeth Meneses CRNA) PRN Medication Order 01/31/2023 02/01/2023 02/02/2023 Bupivacaine-EPINEPHrine (PF) (Sensorcaine-EPINEPHrine) 0.5-1:528115 % inj (CANCELED) ONCE PRN INTRA PROCEDURE, Starting on Sun02/02/23 at 1050, Until Sun02/02/23 at 1114, Intra-Op 1050 (Given - Provid er: Bishop Jung MD) ceFAZolin (Ancef) inj (CANCELED) ONCE PRN INTRA PROCEDURE, Starting on Sun02/02/23 at 1050, Until Sun02/02/23 at 1114, Intra-Op 1050 (Given - Provid er: Bishop Jung MD) sodium chloride 0.9 % flush/inj (CANCELED) ONCE PRN INTRA PROCEDURE, Starting on Sun02/02/23 at 1050, Until Sun02/02/23 at 1114, Intra-Op 1050 (Given - Provid er: Bishop Jung MD) documented in this encounter Care Teams Dsp Engineer Relationship Specialty Start Date End Date Farooq Rodríugez, DO [address] [facility] [place] [address] PCP - General Family Medicine 08/22/19 documented as of this encounter
--- OUTSIDE RECORDS SUMMARY | 2023-09-26 01:46 | External Medical Summary | Summary of Care ---
Author Name Unknown Organization [facility] Address [address] [place] [address] Phone [phone] Care Team Providers Care Manager Competitive Intelligence Name Role Phone Farooq Rodríguez DO Primary Care Provider [phone] Reason for Visit * Reason Comments Pain * Precert (Within 30 days (routine)) - Authorized Specialty Diagnoses / Procedures Referred By Contac t Referred To Contact Diagnoses Radiculopathy, lumbar region Procedures HI PRQ IMPLTJ NSTIM ELECTRODE ARRAY EPIDURAL Bishop Jung MD [address] [facility] [place] [address] [facility] [address] [address] Referral ID Status Reason Start Date Expiration Date V isits Requested Visits Authorized [id number] Authorized Precert 12/13/2022 12/13/[phone] Encounter Details Date Type Department Care Team Description 12/27/2022 Office Visit [facility] [place] [address] [place] [address] Bishop Jung MD [address] [place] [address] Chronic pain syndrome*; Lumbar radiculopathy Allergies No known active allergiesdocumented as of this encounter (statuses as of 01/24/2023) Medications Medication Sig Dispensed Refills Start Date [...] by mouth in the morning. 0 Active [place]-3 Fatty Acids (OMEGA 3 500) 500 MG [...] MUSCLE SPASM 360 Tablet 0 12/12/2022 Active Hospital, Clinic, or Other Facility Administered Medication Ordered Dose Route Frequency Start Date End Date Status ceFAZolin (Ancef) inj 3 gIndications:Chronic pain syndrome,Lumbar radiculopathy 3 g IVPB ONCE PRN 12/27/2022 Active buffered lidocaine 1 % inj 10 mLIndications:Chronic pain syndrome,Lumbar radiculopathy 10 mL IJ ONCE 12/27/2022 12/27/2022 Ended sodium chloride 0.9 % flush/inj 10 mLIndications:Chronic pain syndrome,Lumbar radiculopathy 10 mL IV PUSH ONCE PRN 12/27/2022 12/28/2022 Ended isolyte-S pH 7.4 infusionIndications:Physical Therapy Supervisor alison pain syndrome,Lumbar radiculopathy 1000 mL IV CONTINUOUS 12/27/2022 12/28/2022 Ended ceFAZolin (Ancef) inj 3 gIndications:Chronic pain syndrome,Lumbar radiculopathy 3 g IVPB ONCE 12/27/2022 12/27/2022 Ended documented as of this encounter (statuses as of 01/24/2023) Active Problems Problem Noted Date 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 [...] as of this encounter (statuses as of 01/24/2023) Resolved Problems Problem Noted Date Resolved Date Encounter for surveillance of abnormal nevi 03/2004/29/2021 Dyslipidemia, goal LDL below 100 06/01/2014 12/08/2015 Bronchiectasis 04/18/2003 06/12/2017 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 02/10/2021 Pneumonia due to other virus not elsewhere class ified 12/24/2002 04/29/2021 documented as of this encounter (statuses as of 01/24/2023) Immunizations Name Administration Dates Next Due COVID-19 mRNA, LNP-s, No Pre serve, 2-Dose Series (Earnix) 04/09/2021,03/19/2021 Pneumococcal Conjugate Vacc, 13 Valent (Prevnar) 08/19/2010 Pneumococcal Conjugate Vacci ne, 7 Valent 10/15/2002 Pneumococcal Polysaccharide PPV23 (Pneumovax) 08/19/2010 Seasonal Influenza, Quadriva lent, No Preserve, IM 08/18/2020,08/20/2019,08/03/2016 Seasonal Influenza, Split, I IV3, With Preserve, Inj 07/20/2018,08/03/2015,08/03/2014,08/06,08/14/2012,08/26/2009,09/03/2003 ,10/15/2002 TD, Preservative Free 10/27/2020 TDAP (age 13 [...] Sign Reading Time Taken Comments Blood Pressure 152/92 12/27/2022 9:31 AM EST Pulse 67 12/27/2022 9:31 AM EST Temperature 36.5 C (97.7 F) 12/27/2022 7:37 AM ES T Respiratory Rate - - Oxygen Saturation 97% 12/27/2022 9:31 AM EST Inhaled Oxygen Concentration - - Weight 126.2 kg (278 lb 3.2 oz) 12/27/2022 7:37 AM EST Height 172.7 cm (5' 8") 12/27/2022 7:37 AM EST Body Mass Index 42.3 12/27/2022 7:37 AM EST documented in this encounter Patient Instructions * Patient Instructions* Diana Erwin RN - 12/27/2022 8:13 AM EST PREVENTING FALLS AT HOME TALK TO YOUR DOCTOR One way to reduce falls is to speak to your doctor about how to address your risk factors for falling. Tell you doctor if you have experienced the following in the last 6 months: - A fall or near fall (slip or trip) - Problems with walking or balance - Muscle weakness - Loss of feeling or numbness in your legs or feet - Swelling of your ankles - Difficulty breathing or shortness of breath - Dizzy or lightheaded, passed out or fainted - Changes in hearing or vision - Changes in your sleep pattern - Chronic conditions like diabetes, arthritis, or high or low blood pressure - Cascade depressed for an extended period of time - Fear of falling - Problems doing daily activities at home (such as bathing or getting dressed) Many different factors contribute to falls. Consider talking to your doctor about medications, assistive devices and community resources to help you avoid injuries due to falls. MEDICATIONS - Medications often have side effects such as dizziness, lightheadedness, sleepiness, drop in bloodpressure or confusion - all of which can put you at a greater risk of falling. - If you use an assistive device already, be sure to tell your doctor. For example: - One-point cane - Quad-cane (the base has 4 feet) - Walkers (4-wheel, 2-wheel or pick-up) - Crutches - Wheelchair or scooter - Leg braces REFERRALS - Sometimes other healthcare professionals can give you specialized information to help lower your risk of falls, including pharmacists, eye doctors, foot doctors, physical therapists or occupationaltherapists. Talk to your doctor about a referral to one of these specialists. - Also, ask your doctor about community resources such as exercise classes that may increase your level of physical activity and reduce your risk of falling. RESOURCE INFORMATIONAL SITES 1. [place] Department of Aging - www.aging.state.[place] 2. [place] Association of [facility] Agencies on Aging - provides links to [facility] agencies - Pending Sale To [facility] or www.[facility].org/agencies.htm LIGHTING - Make sure there is good lighting on all steps and stairs - Use night lights, especially in the bathroom and near steps - Add yellow or white tape to the edge of steps to help you see them better - Use motion detectors or bedside lights in areas you might use at night - Keep a flashlight handy in case of power loss WALKING - Don't freire to get the phone - let it ring - A cordless or cell phone is helpful - Get an answering machine or service - Dial STAR (*) 69 to find out the number of who called you last (check with your phone company because it may cost you to use this service) - Wear shoes that fully support your feet and have rubber soles and low heels - Watch out for curbs or breaks in the sidewalk - Watch your feet when getting on or off elevators or escalators FLOORS, FURNITURE AND STEPS - Remove unsafe rugs or furniture - Rugs should have rubber backs or double stick tape that keeps them from sliding - Keep your home uncluttered - Watch for pets who can get under your feet when walking - Put a non-skid mat in your tub or shower - Avoid chairs that swivel or rock - Use chairs with arms - they are easier to get out of - Use rails on both sides of your steps - Fix broken or uneven floors or steps - Peebles outside steps with a mixture of sand and paint to make them less slippery - Don't walk on a freshly washed floor - Don't stand on a chair or table to reach things - Store things you use often where you can reach them - Keep your walkways clear and keep living areas well lit CALL YOUR DOCTOR FOR ANY OF THE FOLLOWING: - Ringing in your ears - Changes in your vision - If you DO fall - Trouble making it to the bathroom - You notice dizziness, sleepiness or loss of balance from your medicine Spinal Cord Stimulation Trial Instructions Spinal cord stimulation is used to relieve neuropathic pain (pain caused by damaged nerves) in people who have failed conservative treatment such as medications or injections and are not a candidate for surgery. It uses electrical impulses to change transmission of pain signals from the spinal cord to the brain. There are two steps involved in the process. First is a trial which consists of placing an electrical lead on the spinal cord. This is done in the OR or clinic. You will go home the same day. The lead is connected to a battery generator which is outside your body. You will be given instructions on how to use this control device before you go home. You will be able to turn the stimulation on and off, and increase the intensity. You will have the temporary system for a week. This will allow you time to use the stimulator and ensure that it is effective. What complications might occur? The complications of this procedure include the following but are not limited to : - Infection - Severe headache - Bleeding/epidural hematoma - Lead migration/movement - Injury to the spinal cord/nerve damage/paralysis Discharge Instructions - Take it easy until the next day. - Do Not drive with the stimulator on. - Do not raise your arms above your head. - Do not twist or bend. - Report any signs of infection, fever, or problems with the stimulator. - Sponge baths only - no showers or tub baths - Resume all anticoagulants as instructed by primary care doctor, traffic maintenance supervisor, neurologist or pharmacy anticoagulation clinic. You will return to clinic in one week to have the trial stimulator lead removed. The doctor will then discuss your response to the stimulation and determine whether to proceed to the 2nd step implantation. If you are a successful candidate then a referral will be sent to a neurosurgeon or orthopedic spine surgeon for placement of a permanent implant which involves placing a new lead in the spinal canaland the battery generator pack in the buttock area. The implant will not be done for at least a month after the trial to decrease the risk of infection. SEDATION If you received sedation medication during your outpatient procedure than it is important to followthe instructions below: The sedation medication was given to relax you during your procedure. You may also not remember having the procedure done. It may take up to 24 hours for this medication to be out of your system. Because of this, you should observe the following for the next 24 hours: No driving Do not drink alcohol or take antidepressant drugs Do not operate any type of machinery that requires eye-hand coordination Do not sign any legal papers or documents Do not make any financial decisions You should be in the presence of an adult for the remainder of the day Once you are fully awake, you may resume your regular diet and medications unless otherwise instructed by a physician. If at any time you feel you have a medical emergency, call 911 for emergency assistance. Chest pain Sudden, severe shortness of breath Rapid heart rate Sudden onset of weakness If you have any further questions please call ([facility] [place]), ([facility]), [facility], or ([facility]) between the hours of 7:30 AM and 5:00 PM, Sunday through Sunday. After 5:00 PM or on the weekend call and ask to speak with the Pain Therapy physician electronic parts designer. [facility] is available for communication of non-urgent concerns. documented in this encounter Progress Notes * Vee Burciaga LPN - 12/28/2022 7:56 AM EST Patient was contacted for Specialty HTN. 12/12/2022 (in office), Visit date not found (telemedicine) Care Gap Outreach Action Taken: Did not contact: After chart review outreach not indicated.BP 151/89 Vee Burciaga LPN 12/28/2022 * Bishop Jung MD - 12/27/2022 8:38 AM EST The patient recovered uneventfully in the recovery area and was discharged to home in stable condition with standard discharge instructions. Follow up: As scheduled Jhoan Jung M.D. * Bishop Jung MD - 12/27/2022 8:37 AM EST Operative Note Procedure Date: 12/27/2022 Placido Woodward Date of : 1960 Physician: Jhoan Jung M.D. PREOPERATIVE DIAGNOSIS: Failed back surgical syndrome, chronic pain syndrome POSTOPERATIVE DIAGNOSIS: Same OPERATION PERFORMED: Spinal cord stimulator dual percutaneous lead trial using a Medtronic device ANESTHESIA: Local ESTIMATED BLOOD LOSS: None SPECIMENS AND DRAINS: None INDICATIONS FOR PROCEDURE: This is a 62 year old year old male with a clinical picture consistent with failed back surgical syndrome and chronic pain syndrome based on history, clinical findings and imaging. After extensive conversation with the patient including surgical and conservative options, a decision was made to pursue a trial of spinal cord stimulation for symptomatic relief. PROCEDURE AND FINDINGS: The patient was greeted in the pre procedure holding area. The risk, benefits and alternatives to the procedure were again reviewed with the patient and written informed consent was placed in the chart. Prior to the procedure a time out was completed, verifying correct patient, procedure, site, positioning, and implants and/or special equipment. Pre-procedure antibiotics were initiated. The patient was taken to the procedure room and positioned prone on the fluoroscopy table. The skinwas prepped and draped in the usual sterile fashion.Then a telecommunications network engineer film was taken to identify the L2 vertebral body and the endplates were squared off. Starting just medial to the L2 pedicle bilaterally, the overlying skin and subcutaneous tissue was anesthetized using a 25-gauge 1-1/2-inch needle with 2% lidocaine with 1:100,000 epinephrine for a total volume of 2-3 mL as per side. A small, punctate incision was then placed over the entry sites. Subsequently, a 14-gauge 4 inch Touhy epidural needle provided in the stimulator lead kit was used to approach the epidural space using a superior medial approach. [id number] technique was used to enter the epidural space bilaterally at the T12-L1 interspace. Aspiration was negative for heme or CSF. Next, the SCS lead was advanced through the Touhy needle under direct visualization slightly offsetfrom midline on either side. The first lead was advanced to the top of the T8 vertebral body, whilethe second lead was advanced to the top of the T9 vertebral body using AP and lateral views to verify dorsal and midline positioning. The stylets were then removed from the stimulator leads and both Touhy needles were withdrawn with live fluoroscopy to ensure the leads do not migrate. The stimulator leads were then attached to a stay-fix device and further secured with 5 inch Tegaderm. A temporary external IPG was then connected to the leads and impedances were verified to be within normal limits. The external IPG was secured to the patient's flank. The patient was then transferred to the recovery area and the stimulator was programmed by the Medtronic rep who was present for the entirely of the case. He was transported to PACU in stable condition for programming. COMPLICATIONS: None * Bishop Jung MD - 12/27/2022 8:21 AM EST Placido Woodward : 1960 Today's date: 12/27/22 CC: Pain HPI: Placido Woodward is a 62 year old male referred by Farooq Rodríguez DO for consultation, evaluation, and treatment. Patient has past medical history significant for hypothyroidism Patient complains of chronic pain that started years ago The location of pain is low back with radiation into both legs (anterolateral L>R) goes to big toe Patient describes pain as sharp Pain is constant The pain is associated with chronic weakness Some numbness and tingling in the feet Patient currently denies bowel/bladder incontinence and saddle paraesthesias. Patient reports that pain is 4 out of 10 in severity. 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 Patient has had a surgical evaluation- Dr. Valerio. Patient has completed SCS education class and had psych evaluation complete. 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 Pericardial effusion 01/2003 idiopathic, at [facility] Pilonidal cyst without infection Past Surgical History: Procedure Laterality Date BRONCHOSCOPY W/ BRONCHIAL BIOPSY 2002 biopsy, open and bronchoscopy COLONOSCOPY, DIAGNOSTIC (RECTUM) 11/29/2012 COLONOSCOPY FLEXIBLE PROXIMAL DIAGNOSTIC performed by Cristy Dobbs DO at ENDOSCOPY [facility] COLONOSCOPY, DIAGNOSTIC (RECTUM) 11/26/2015 diverticulosis, repeat 10 yrs/COLONOSCOPY FLEXIBLE PROXIMAL DIAGNOSTIC performed by Cristy Dobbs DO at ENDOSCOPY [facility] DENTAL SURGERY PROCEDURE NEC Dental Surgery Procedure DRAINAGE OF HEART SAC 2002 [facility] REMOVAL OF WRIST LESION Current Outpatient Medications Medication Sig Dispense Refill ASPIRIN 81 MG PO TABS One daily ZYRTEC ALLERGY 10 MG PO TABS one daily ALBUTEROL SULFATE (2.5 MG/3ML) 0.083% IN NEBU Inhale via nebulizer . HM VITAMIN D3 2000 UNITS PO CAPS 1 CAPSULE DAILY albuterol (PROAIR HFA) 108 (90 BASE) MCG/ACT inhaler Inhale 2 Puffs by mouth 4 times a day. 1 Inhaler 1 SUMAtriptan (IMITREX) 50 MG Tablet TAKE ONE TABLET BY MOUTH ONE TIME ONLY,REPEAT AFTER TWO HOURS NEEDED MAX OF FOUR TABLETS 12 Tab 0 Mometasone Furo-Formoterol Fum 100-5 MCG/ACT Inhalation Aerosol Inhale 1 Puff by mouth as needed. Multiple Vitamins-Minerals (MENS MULTIPLE VITAMIN/LYCOPENE) TABS Take by mouth daily. vitamin e (AQUASOL E) 400 UNIT Capsule Take 1 Capsule by mouth in the morning. [place]-3 Fatty Acids (OMEGA 3 500) 500 MG CAPS Take by mouth. Azelastine HCl 0.1 % nasal spray USE 2 SPRAY(S) IN EACH NOSTRIL TWICE DAILY 90 mL 1 Meclizine HCl 25 MG Oral Tablet (Antivert) TAKE 1 TABLET BY MOUTH THREE TIMES DAILY NEEDED FOR DIZZINESS 30 Tab 5 Gabapentin 300 MG Oral Capsule (Neurontin) Take by mouth 1 Capsule before bedtime. 30 Capsule 1 Pantoprazole Sodium 40 MG Oral Tablet Delayed Release (Protonix) Take by mouth 1 Tablet in the morning. 90 Tablet 3 tiZANidine HCl 4 MG Oral Tablet (Zanaflex) TAKE 1 TABLET BY MOUTH EVERY 6 HOURS NEEDED FOR MUSCLE SPASM 30 Tablet 5 Levothyroxine Sodium 125 MCG Oral Tablet (Levoxyl) Take by mouth 1 Tablet in the morning. (at least 30 min prior to breakfast or other meds) Repeat labs after 11/01. 30 Tablet 11 Potassium Chloride ER 10 MEQ Oral Tablet Extended Release Take 1 tablet by mouth once daily 90 Tablet 1 Amitriptyline HCl 25 MG Oral Tablet (Elavil) TAKE 1 TABLET BY MOUTH AT BEDTIME 90 Tablet 1 Spironolactone 25 MG Oral Tablet (Aldactone) TAKE 1 TABLET BY MOUTH IN THE MORNING 90 Tablet 0 Atorvastatin Calcium 40 MG Oral Tablet (Lipitor) Take 1 tablet by mouth once daily 90 Tablet 0 Furosemide 40 MG Oral Tablet (Lasix) Take 1 and 1/2 tablet every day 45 Tablet 11 Lisinopril 40 MG Oral Tablet Take 1 Tablet by mouth in the morning. 90 Tablet 3 No current facility-administered medications for this visit. 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 Employer: [employer] Comment: [id number] 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 Employer: [employer] Occupation: [employer] Employer: [employer] Tobacco Use Smoking status: Never Smokeless tobacco: Former Types: Chew Quit date: 04/21/2012 Tobacco comments: quit Vaping Use Vaping Use: Never used Substance and Sexual Activity Alcohol use: Yes Alcohol/week: 5.0 standard drinks Types: 6 12 oz of beer per week Drug use: No Sexual activity: Yes Partners: Female Other Topics Concern Service Yes Blood Transfusions No Caffeine Concern Not Asked Occupational Exposure Not Asked Hobby Hazards Not Asked Sleep Concern Not Asked Stress Concern Not Asked Weight Concern Not Asked Special Diet Not Asked Back Care Not Asked Exercise Not Asked Bike Helmet Not Asked Seat Belt Not Asked Self-Exams Not Asked Social History Narrative born in [place], [facility] long resident Social Determinants of Health Financial Resource Strain: Not on file Food Insecurity: Not on file Transportation Needs: Not on file Physical Activity: Not on file Stress: Not on file Social Connections: Not on file Intimate Partner Violence: Not on file Housing Stability: Not on file Review of Systems: CONSTITUTIONAL: Denies weight loss, fever, fatigue, weakness, or chills. SKIN: Denies rashes, open wounds, erythema. NEURO: Denies headache, dizziness. EENT: Denies visual changes, hearing changes, dysphagia, sore throat. CARDIAC: Denies recent chest pain. RESPIRATORY: Denies SOB, wheezing, cough. GI: Denies nausea, vomiting, diarrhea. : Denies dysuria, hematuria, urinary retention. ENDOCRINE: Denies polyuria, polydipsia. MUSCULOSKELETAL: see HPI HEMATOLOGIC: Denies known bleeding or clotting disorders. PSYCHOLOGICAL: Denies h/o depression, anxiety, panic attacks, bipolar disorder ALL OTHER SYSTEMS NEGATIVE PE: BP 140/91 | Pulse 75 | Temp 36.5 C (97.7 F) (Tympanic) | Ht 1.727 m (5' 8") | Wt 126.2 kg (278 lb 3.2 oz) | SpO2 100% | BMI 42.30 kg/m | BSA 2.46 m GENERAL APPEARANCE: no apparent distress, well - nourished, well developed, A/A/Ox3 CARDIAC: regular rate and rhythm, no murmurs, no rubs and no gallops RESPIRATORY: non-labored breathing, clear to auscultation bilaterally EXTREMITIES: No pallor, erythema, edema, ecchymosis. Lower Extremity strength : iliopsoas 4/5, quadriceps 4/5, gastrocnemius 4/5, extensor halicus longus 4/5, tibialis anterior 4/5 and peroneals 4/5 bilaterally BACK: TTP bilateral lumbar paraspinal region. Pain worsens with extension and flexion. + SLR bilaterally. Patient cannot perform RUDI's. NEUROLOGIC: Alert and oriented. CN II-XII grossly intact. Sensation intact to light touch bilaterally and symmetric. GAIT: Antalgic and uses cane DIAGNOSTIC IMAGING: Films reviewed and discussed with patient MRI Lumbar Spine 04/13/22 FINDINGS: There are 5 lumbar-type vertebral bodies [...] potentially related to the chronic intraspinal hemorrhage. MRI Thoracic Spine 09/23/22 FINDINGS: The study is partially motion degraded. [...] or foraminal stenosis on a degenerative basis. ASSESSMENT: M54.16 Lumbar radiculopathy (primary encounter diagnosis) G03.9 Arachnoiditis G89.4 Chronic pain syndrome PLAN: Medtronic SCS trial documented in this encounter Nursing Notes * Cecy Del Rio LPN - 12/27/2022 10:21 AM EST Nurse Assessment Instructional Facilitator (Name): [facility] General Education Education Details:: POST Person Taught:: Patient Understands Current Diagnosis:: Yes Understands Current Treatment:: Yes ReCheck Educational Screening for Patient Barrier to Learning:: Unchanged Motivation Level:: Eager to learn Method:: One to one Outcome:: State/Describe/Explain Nurse Assessment Patient Presents with: back, bi. legs NPO/Clear Liquids: Yes Pain Score Now: 2 Pain Worst: 4 Pain Best: 2 Any Vaccine in last two weeks?: No Open Wounds: No Diabetes: No Anticoagulants: None Fall Assessment Will any of the medications or procedures this patient may encounter during their visit put them atincreased risk of a fall?: Yes Does this pt demonstrate any physical impairment or altered mental status that places them at increased risk of fall?: No Fall precautions in place:: Yes Nurse Procedure Sedation Scale Rhodes: 1-Alert 2-Occasionally Drowsy: easy to arouse 3-Frequently drowsy: easy to arouse 4-Asleep: easy to arouse 5-Somnolent: difficult to arouse Patient Signed Consent: Yes Physician Signed Consent: Yes Patient in agreement with assessment and plan: Yes Procedure Matches Verbalized Consent: Yes Team Members Verbalize Agreement with Time Out: Yes List Staff Members Present: PERICO JUNG TIFFANY, MATT Correct Patient: Yes Correct Site: Yes Correct Laterality: N/A Site Marked: Yes Correct Position: Yes Availability of Necessary Equipment: Yes Relevant Images Displayed: Yes Name of Procedure: SCS Procedure Start:: 849 Procedure / Sedation Stop:: 913 Nurse Recovery Report Received From (type name): Shantal ERWIN Pain Score Now: 2 Observations: DILLARD Activity: HOB elevated Nurse Discharge Medication Review Completed Upon Discharge: Yes Post-Procedure Instructions: Spinal Cord Stimulator Trial Discharge: ambulatory Dangling at Bedside Blood Pressure : 151/89 (70) Observations at Discharge: STABLE GAIT Pain Score at Discharge : 0 Patient & Family Education Screening (Annual) 12/27/2022 10:21 AM documented in this encounter Plan of Treatment Upcoming Encounters Date Type Specialty Care Team Description 02/02/2023 Hospital Encounter Surgery Bishop Jung MD [address] [place] [id number] 02/02/2023 Surgery Surgery Bishop Jung MD [address] [place] [id number] INSERTION OR REPLACEMENT SPINAL NEUROSTIMULATOR GENERATOR 02/09/2023 Nurse Only Pain Medicine [facility], Nurse Pain Medicine [address] [place] [phone] 02/16/2023 Office Visit Pain Medicine Reagan Bobo CRNP [address] [place] [phone] 03/02/2023 Office Visit Pain Medicine Reagan Bobo CRNP [address] [place] [address] 05/21/2023 Cardiac Studies Cardiac Studies 05/28/2023 Office Visit Cardiology Kath Carlin PA-C [address] [place] [address] 06/12/2023 Office Visit Family Medicine Farooq Rodríguez, DO [address] [place] [address] Scheduled Procedures Name Priority Associated Diagnoses Date/Ti me INSERTION OR REPLACEMENT SPINAL NEUROSTIMULATOR GENERATOR Lumbar radicular pain Arachnoiditis Chronic pain syndrome 02/02/2023 9:04 AM EDT PERCUTANEOUS IMPLANTATION NEUROSTIMULATOR EPIDURAL Lumbar radicular pain Arachnoiditis Chronic pain syndrome 02/02/2023 9:04 AM EDT NEUROSTIMULATOR PULSE GENERATOR/ TRANSMITTER, WITH INTRAOPERATIVE OR SUBSEQUENT PROGRAMMING Lumbar radicular pain Arachnoiditis Chronic pain syndrome 02/02/2023 9:04 AM EDT COLONOSCOPY FLEXIBLE PROXIMA L DIAGNOSTIC Recall Encounter [...] documented as of this encounter Medical Devices Not on filedocumented as of this encounter Procedures Procedure Name Priority Date/Time Associated Diagnosis Comments FLUORO INTERVENTIONAL PAIN PROCEDURE BILLABLE Routine 12/27/2022 9:21 AM EST Chronic pain syndrome Lumbar radiculopathy documented in this encounter Results * FLUORO INTERVENTIONAL PAIN PROCEDURE BILLABLE SPINE OR PARASPINOUS INJ (12/27/2022 9:21 AM EST) Narrative Scheduling, Silent - 12/27/2022 9:21 AM EST This procedure will not be read by a Radiologist. Please see operative note. Bishop Jung MD RAD FLUOROSCOPY documented in this encounter Visit Diagnoses Diagnosis Chronic pain syndrome- Primary Lumbar radiculopathy Thoracic or lumbosacral neuritis or radiculitis, unspecified Lumbar radicular pain Thoracic or lumbosacral neuritis or radiculitis, unspecified Arachnoiditis Meningitis, unspecified Chronic pain syndrome documented in this encounter Administered Medications Inactive Administered Medications - up to 3 most recent administrations Medication Order MAR Action Action Date Dose Rate Site buffered lidocaine 1 % inj 10 mL 10 mL, Injection, ONCE, On Sun12/27/22 at 0915, For 1 dose, Buffered with sodium bicarbonate Given 12/27/2022 8:56 AM EST 10 mL ceFAZolin (Ancef) inj 3 g 3 g, IV Piggyback, ONCE, On Sun12/27/22 at 0915, For 1 dose Start Infusion 12/27/2022 8:30 AM EST 3 g isolyte-S pH 7.4 infusion Intravenous, Plasma-LYTE 148, isolyte-S, and isolyte-S pH 7.4 are considered equivalent - including for MAR barcode scanning., CONTINUOUS, Starting on Sun12/27/22 at 0915, Until Melissa 12/28/22 at 0914 New Bag 12/27/2022 8:25 AM EST 1,000 mL 25 mL/hr sodium chloride 0.9 % flush/inj 10 mL 10 mL, IV Push, ONCE PRN Other, Mixture, Starting on 12/27/22 at 0836, Until Melissa 12/28/22 at 2359, For 2 doses, Do not flush if lock, PICC, or central line not in place; IV infusing or unable to flush. Given 12/27/2022 8:57 AM EST 10 mL documented in this encounter Care Teams Manager Competitive Intelligence Relationship Specialty Start Date End Date Farooq Rodríguez, DO [address] [place] [address] PCP - General Family Medicine 08/22/19 documented as of this encounter
--- OUTSIDE RECORDS SUMMARY | 2023-09-26 01:46 | External Medical Summary | Summary of Care ---
Author Name Unknown Organization [facility] Address [address] [place] [address] Phone [phone] Care Team Providers Care Dictating Machine Typist Name Role Phone MarcosFarooq Belle PEÑA Primary Care Provider [phone] Encounter Details Date Type Department Care Team Description 02/09/2023 Nurse Only Interventional [facility], [facility] [address], [place] [phone] [facility], Nurse Pain Medicine [address] [place] [address] Allergies No known active allergiesdocumented as of this encounter (statuses as of 02/12/2023) Medications Medication Sig Dispensed Refills Start Date [...] by mouth in the morning. 0 Active [place]-3 Fatty Acids (OMEGA 3 500) 500 MG [...] before bedtime. 120 mL 5 01/16/2023 Active HYDROcodone-Acetamin ophen 5-325 MG Oral Tablet Take 1 Tablet by mouth every 6 hours as needed for Pain, Moderate. 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 [...] as of this encounter (statuses as of 02/12/2023) Resolved Problems Problem Noted Date Resolved Date Encounter for surveillance of abnormal nevi 03/2004/29/2021 Dyslipidemia, goal LDL below 100 06/01/2014 12/08/2015 Bronchiectasis 04/18/2003 06/12/2017 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 02/10/2021 Pneumonia due to other virus not elsewhere class ified 12/24/2002 04/29/2021 documented as of this encounter (statuses as of 02/12/2023) Immunizations Name Administration Dates Next Due COVID-19 mRNA, LNP-s, No Pre serve, 2-Dose Series ([place] [employer]) 04/09/2021,03/19/2021 Pneumococcal Conjugate Vacc, 13 Valent (Prevnar) [...] Sign Reading Time Taken Comments Blood Pressure 138/82 02/09/2023 8:35 AM EDT Pulse 78 02/09/2023 8:35 AM EDT Temperature 36 C (96.8 F) 02/09/2023 8:35 AM EDT Respiratory Rate - - Oxygen Saturation 100% 02/09/2023 8:35 AM EDT Inhaled Oxygen Concentration - - Weight - - Height - - Body Mass Index - - documented in this encounter Nursing Notes * Sheree Mcgrath RN - 02/09/2023 8:35 AM EDT Pt here for wound check s/p spinal cord stimulator implant 02/02/23. Dressing removed. Incision sites x2 clean, bar intact. No redness, swelling, or drainage noted.No pt c/os voiced. Pt aware to return to office for staple removal next week 02/16/23 @0900. Instructed pt to bring remote along to appt. documented in this encounter Plan of Treatment Upcoming Encounters Date Type Specialty Care Team Description 02/16/2023 Office Visit Pain Medicine Reagan Bobo CRNP [address] [place] [address] 03/01/2023 Office Visit Pain Medicine Reagan Bobo CRNP [address] [place] [address] 05/21/2023 Cardiac Studies Cardiac Studies 05/28/2023 Office Visit Cardiology Kath Carlin PA-C [address] [place] [address] 06/12/2023 Office Visit Family [facility] Farooq Rod[facility]guez, DO [address] [facility] [address] Scheduled Procedures Name Priority Associated Diagnoses Date/Ti [...] this encounter Medical Devices Implanted Type Area Barrel Endshaker Adjuster Device Identifier Shelf Expiration Date Model / Serial / Lot Envelope Tyrx Med Antibacteril - [id number] Implanted:Qty: 1 on 02/02/2023 by Bishop Jung MD at OR [facility] N/A: Spine Lumbar [employer] 08/21/2023 [id number] / / documented as of this encounter Care Teams Dictating Machine Typist Relationship Specialty Start Date End Date Farooq Rodríguez, DO [address] [place] [address] PCP - General Family Medicine 08/22/19 documented as of this encounter
--- OUTSIDE RECORDS SUMMARY | 2023-09-26 01:47 | External Medical Summary ---
Author Name Unknown Address Unknown Organization K01:[facility] - [facility] [address] [facility] [place] [address] Laboratory Report Ordering Provider Test Date Status KARLALAN 01/19/2023 11:29:03 Final Observation Date Value Abnormality Reference (Units ) Status Staphylococcus aureus methicillin resistance SCCmec [Presence] in Nose by BERTA with probe detection 01/19/2023 11:29:03 Negative Negative Final No Methicillin resistant Sta phylococcus aureus detected by PCR (amplified probe). Methicillin susceptible Stap hylococcus aureus DNA [Presence] in Specimen by BERTA with probe detection 01/19/2023 11:29:03 Negative Negative Final No methicillin sensitive Sta phylococcus aureus detected by PCR (amplified probe). Performing Location [facility] - [address] [facility] [place] [address]
--- OUTSIDE RECORDS SUMMARY | 2023-09-26 01:47 | External Medical Summary | Summary of Care ---
Author Name Unknown Organization [facility] Address [address] [place] [address] Phone [phone] Care Team Providers Care Financial Advisor Name Role Phone Farooq Rodríguez DO Primary Care Provider [phone] Reason for Visit * Reason Onset Date Comments Test Results 01/17/2023 Encounter Details Date Type Department Care Team Description 01/17/2023 Telephone Family Practice [facility] [address] [place] [address] Farooq Rod[facility]guez DO [address] [facility] [address] Test Results Allergies No known active allergiesdocumented as of this encounter (statuses as of 01/17/2023) Medications Medication Sig Dispensed Refills Start Date [...] by mouth in the morning. 0 Active [place]-3 Fatty Acids (OMEGA 3 500) 500 MG [...] before bedtime. 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 [...] as of this encounter (statuses as of 01/17/2023) Resolved Problems Problem Noted Date Resolved Date Encounter for surveillance of abnormal nevi 03/2004/29/2021 Dyslipidemia, goal LDL below 100 06/01/2014 12/08/2015 Bronchiectasis 04/18/2003 06/12/2017 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 This could be associated with supplement use. Patient verified he is taking an OTC B12 supplement. Advised pt to stop B12 supplement and ordered B12 for recheck. Pt can obtain at next OV. Pt was agreeable. Thank you, Gayle Hale, PharmD Clinical Pharmacist [facility] [phone] 01/17/2023, 4:27 PM documented in this encounter Plan of Treatment Upcoming Encounters Date Type Specialty Care Team Description 01/19/2023 Nurse Only Pain Medicine [facility], Nurse Pain Medicine [address] [place] [address] 02/02/2023 Hospital Encounter Surgery Bishop Jung MD [address] [place] [address] 02/02/2023 Surgery Surgery Bishop Jung MD [address] [place] [address] INSERTION OR REPLACEMENT SPINAL NEUROSTIMULATOR GENERATOR 05/21/2023 Cardiac Studies Cardiac Studies 05/28/2023 Office Visit Cardiology Kath Carlin PA-C [address] [place] [address] 06/12/2023 Office Visit Family Medicine Farooq Rodríguez, DO [address] [place] [address] Scheduled Orders Name Type Priority Associated Diagnoses Orde r Schedule VITAMIN B12 Lab Routine Encounter for long-term (current) use of other medications Expected: 04/19/2023 (Approximate), Expires: 01/18/2024 Scheduled Procedures Name Priority Associated Diagnoses Date/Ti me INSERTION OR REPLACEMENT SPINAL NEUROSTIMULATOR GENERATOR Lumbar radicular pain Arachnoiditis Chronic pain syndrome 02/02/2023 10:15 AM EDT PERCUTANEOUS IMPLANTATION NEUROSTIMULATOR EPIDURAL Lumbar radicular pain Arachnoiditis Chronic pain syndrome 02/02/2023 10:15 AM EDT NEUROSTIMULATOR PULSE GENERATOR/ TRANSMITTER, WITH INTRAOPERATIVE OR SUBSEQUENT PROGRAMMING Lumbar radicular pain Arachnoiditis Chronic pain syndrome 02/02/2023 10:15 AM EDT COLONOSCOPY FLEXIBLE PROXIMA L DIAGNOSTIC [...] Not on filedocumented as of this encounter Visit Diagnoses Diagnosis Encounter for long-term (current) use of other medications- Primary Lumbar radicular pain Thoracic or lumbosacral neuritis or radiculitis, unspecified Arachnoiditis Meningitis, unspecified Chronic pain syndrome documented in this encounter Care Teams Financial Advisor Relationship Specialty Start Date End Date Farooq Rodríguez, DO [address] [place] [address] PCP - General Family Medicine 08/22/19 documented as of this encounter
--- OUTSIDE RECORDS SUMMARY | 2023-09-26 01:47 | External Medical Summary | Summary of Care ---
Author Name Unknown Organization [facility] Address [address] [place] [address] Phone [phone] Care Team Providers Care Clinical Aide Name Role Phone Farooq Rodríguez DO Primary Care Provider [phone] Reason for Visit * Reason Comments Emergency Department Follow-Up Encounter Details Date Type Department Care Team Description 01/16/2023 Office Visit Family [facility] [address] [facility] [place] [address] Farooq Rodríguez DO [address] [facility] [place] [address] Mild persistent asthma without complication* Allergies No known active allergiesdocumented as of this encounter (statuses as of 01/16/2023) Medications Medication Sig Dispensed Refills Start Date [...] by mouth in the morning. 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 01/17/2003 02/10/2021 Pneumonia due to other virus not elsewhere class ified 12/24/2002 04/29/2021 documented as of this encounter (statuses as of 01/16/2023) Immunizations Name Administration Dates Next Due COVID-19 mRNA, LNP-s, No Pre serve, 2-Dose Series ([employer]) 04/09/2021,03/19/2021 Pneumococcal Conjugate Vacc, 13 Valent (Prevnar) [...] Sign Reading Time Taken Comments Blood Pressure 146/88 01/16/2023 10:36 AM EST Pulse 67 01/16/2023 10:36 AM EST Temperature 36.3 C (97.4 F) 01/16/2023 1 0:36 AM EST Respiratory Rate 18 01/16/2023 10:3 6 AM EST Oxygen Saturation 96% 01/16/2023 10: 36 AM EST Inhaled Oxygen Concentration - - Weight 126.6 kg (279 lb 3.2 oz) 023 10:36 AM EST Height - - Body Mass Index 42.45 01/09/2023 1:29 PM EST documented in this encounter Progress Notes * Farooq Rodríguez, - 01/16/2023 10:46 AM EST Subjective: Placido Dean is a 62 year old male. Chief Complaint Patient presents with Emergency Department Follow-Up HPI: Pt to the ER on 01/10 with SOB and a fall. He had been having increased swelling and SOB over afew weeks. He was taking his regular lasix and aldactone. He has a history of aortic root enlargement and follows with cardiology. His pulse ox was 95% on entry. His lungs sounded clear but he had 1+pitting edema. His blood work showed a mild anemia with a hgb at 13.1 and slightly elevated liver enzymes. His ProBNP was only 46. His COVID test was negative. His CT PE showed some mild atalectasis but no PE and clear otherwsie. EKG showed an incomplete RBBB. A duoneb helped with his breathing. Troponin was negative. CT abd/pelvis was normal. He received 40 mg of IV lasix and was sent home. He did not actually fall. It was mostly just that day that his breathing was worse. HE also had increased swelling. Some chest pain. HE feels like getting the Duoneb helped more than anything else. He did not really pee much from the lasix. Since then he did notice a return in the swelling. He was also cramping. As long as he is sitting he is alright. When up and moving breathing gets tougher. Not really wheezing. NOt bringing up any mucous. Has not tried nebulizer or inhaler at home. He feels tired all the time now. Still can't put on socks. Does not like compression socks. PMHx, meds, and allergies reviewed Patient Active Problem List Diagnosis Code Pericardial [...] 0.083% IN NEBU Inhale via nebulizer . (Patient not taking: Reported on 01/09/2023) HM VITAMIN D3 2000 UNITS PO CAPS [...] 1 Capsule by mouth in the morning. [place]-3 Fatty Acids (OMEGA 3 500) 500 MG [...] as needed for Dizziness. 270 Tablet 1 Gabapentin 300 MG Oral Capsule (Neurontin) Take 1 Capsule by mouth at bedtime. 90 Capsule 0 tiZANidine HCl 4 MG Oral Tablet (Zanaflex) TAKE 1 TABLET BY MOUTH EVERY 6 HOURS NEEDED FOR MUSCLE SPASM 360 Tablet 0 Current Facility-Administered Medications Medication Dose Route Frequency Provider Last Rate Last Admin ceFAZolin (Ancef) inj 3 g 3 g IV Piggyback Once PRN Bishop Jung MD Review of patient's allergies indicates: No Known Allergies OBJECTIVE: BP 146/88 | Pulse 67 | Temp 36.3 C (97.4 F) (Tympanic) | Resp 18 | Wt 126.6 kg (279 lb 3.2 oz) | SpO2 96% | BMI 42.45 kg/m | BSA 2.46 m Estimated body mass index is 42.45 kg/m as calculated from the following: Height as of 01/09/23: 1.727 m (5' 8"). Weight as of this encounter: 126.6 kg (279 lb 3.2 oz). BP Readings from Last 3 Encounters: 01/16/23 146/88 01/03/23 147/93 12/27/22 152/92 Wt Readings from Last 3 Encounters: 01/16/23 126.6 kg (279 lb 3.2 oz) 01/03/23 126.2 kg (278 lb 3.2 oz) 12/27/22 126.2 kg (278 lb 3.2 oz) ROS: Negative except for above PHYSICAL EXAM: General: alert, no distress and obese Head: Normocephalic, No masses, lesions, tenderness or abnormalities Heart: regular rate & rhythm, no murmur and no gallops Lungs: chest symmetric with normal AP diameter, no chest deformities noted, no chest wall tenderness, lungs clear to auscultation Extremities: less than 2 second capillary refill, no joint deformities, effusion, or inflammation, and trace edema B/L ASSESSMENT/Plan Mild persistent asthma without complication (Primary) - Ipratropium-Albuterol 0.5-2.5 (3) MG/3ML Inhalation Solution (Duoneb); Inhale 3 mL via nebulizer in the morning and 3 mL at noon and 3 mL in the evening and 3 mL before bedtime. His work-up suggests more asthma as a problem than CHF. Will get him duoneb treatments to use at home as needed. He can try an extra dose of lasix but regular compression socks would probably help more. The above was discussed and understanding was expressed. Farooq Rodríguez DO documented in this encounter Nursing Notes * Lynn Padron LPN - 01/16/2023 10:36 AM EST Patient presents for ER follow up. Was seen after a fall and was experiencing SOB/trouble breathing. documented in this encounter Plan of Treatment Upcoming Encounters Date Type Specialty Care Team Description 01/19/2023 Nurse Only Pain Medicine [facility], Nurse Pain Medicine [address] [place] [address] 02/02/2023 Hospital Encounter Surgery Bishop Jung MD [address] [place] [address] 02/02/2023 Surgery Surgery Bishop Jung MD [address] [place] [phone] INSERTION OR REPLACEMENT SPINAL NEUROSTIMULATOR GENERATOR 05/21/2023 Cardiac Studies Cardiac Studies 05/28/2023 Office Visit Cardiology Kath Carlin PA-C [address] [place] [address] 06/12/2023 Office Visit Family Medicine Farooq Rodríguez, DO [address] [facility] [address] Scheduled Procedures Name Priority Associated Diagnoses Date/Ti [...] RESISTANT HTN 01/06/2023 GFR - Renal Function 09/18/2023 01/16/2023, 09/18/2022, 05/30/2022, Additional history exists TSH FOR THYROID MEDICATION MONITORING YEARLY 09/18/2023 09/18/2022, 05/30/2022, 03/14/2022, Additional history exists Diabetes Screening 09/18/2025 01/16/2023, 1 , 05/30/2022, Additional history exists Colonoscopy: Ages 45-75 11/26/2025 11/26/19 16, 11/26/2015, 11/29/2012, Additional history exists Colorectal Cancer Screening (Colonoscopy 10 Years; Sigmoidoscopy 5 Years; Cologuard 3 Years; FOBT 1 Year): Ages 45-75 11/26/2025 Lipid Panel 01/17/2027 01/17/2022, 02/01/2021, 02/24/2020, Additional history exists DTaP,Tdap,and Td Vaccines (3 - Td or Tdap) 10/27/2030 10/27/2020, 09/13/2009 Pneumococcal Vaccine: Pediatrics (0 to 5 Years) and At-Risk Patients (6 to 64 Years) Aged Out 08/19/2010, 08/19/2010 No longer eligibl e based on patient's age to complete this topic Zoster Vaccines Completed 04/23/2019, 02/17/2019 GARDASIL-HPV IMMUNIZATION [...] as of this encounter Visit Diagnoses Diagnosis Mild persistent asthma without complication- Primary Unspecified asthma Lumbar radicular pain Thoracic or lumbosacral neuritis or radiculitis, unspecified Arachnoiditis Meningitis, unspecified Chronic pain syndrome documented in this encounter Care Teams Clinical Aide Relationship Specialty Start Date End Date Farooq Rodríguez, [address] [place] [address] PCP - General Family Medicine 08/22/19 documented as of this encounter
--- OUTSIDE RECORDS SUMMARY | 2023-09-26 01:47 | External Medical Summary | Summary of Care ---
Author Name Unknown Organization [facility] Address [address] [facility] [place] [address] Phone [phone] Care Team Providers Care Canal Equipment Maintenance Supervisor Name Role Phone MarcosFarooq Belle PEÑA Primary Care Provider [phone] Encounter Details Date Type Department Care Team Description 01/19/2023 Nurse Only Interventional [facility], [facility] [address] [place], [place] [id number] [facility], Nurse Pain Medicine [address] [place] [address] Allergies No known active allergiesdocumented as of this encounter (statuses as of 01/19/2023) Medications Medication Sig Dispensed Refills Start Date [...] by mouth in the morning. 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 MRSA swab specimen collected. Sent to lab. Pre/post- op instructions reviewed with all questions answered. Start Clean Kit provided with patient verbalizing understanding. Patient follow ups provided by Carol HERNÁNDEZ. Leni Leonardo LPN documented in this encounter Plan of Treatment Upcoming Encounters Date Type Specialty Care Team Description 02/02/2023 Hospital Encounter Surgery Bishop Jung MD [address] [place] [address] 02/02/2023 Surgery Surgery Bishop Jung MD [address] [place] [address] INSERTION OR REPLACEMENT SPINAL NEUROSTIMULATOR GENERATOR 02/09/2023 Nurse Only Pain Medicine [facility], Nurse Pain Medicine [address] [place] [address] 02/16/2023 Office Visit Pain Medicine Reagan Bobo CRNP [address] [place] [address] 03/02/2023 Office Visit Pain Medicine Reagan Bobo CRNP [address] [place] [address] 05/21/2023 Cardiac Studies Cardiac Studies 05/28/2023 Office Visit Cardiology Kath Carlin PA-C [address] [place] [address] 06/12/2023 Office Visit Family Medicine Farooq Rodríguez DO [address] [place] [address] Pending Results Name Type Priority Associated Diagnoses Date /Time STAPH AUREUS PCR Lab Routine Pre-op testing Chronic pain syndrome 01/19/2023 11:29 AM EST Scheduled Orders Name Type Priority Associated Diagnoses Orde r Schedule STAPH AUREUS PCR Lab Routine Pre-op testing Chronic pain syndrome Expected: 01/19/2023, Expires: 01/20/2024 Scheduled Procedures Name Priority Associated Diagnoses Date/Ti me INSERTION OR REPLACEMENT SPINAL NEUROSTIMULATOR GENERATOR Lumbar radicular pain Arachnoiditis Chronic pain syndrome 02/02/2023 10:06 AM EDT PERCUTANEOUS IMPLANTATION NEUROSTIMULATOR EPIDURAL Lumbar radicular pain Arachnoiditis Chronic pain syndrome 02/02/2023 10:06 AM EDT NEUROSTIMULATOR PULSE GENERATOR/ TRANSMITTER, WITH INTRAOPERATIVE OR SUBSEQUENT PROGRAMMING Lumbar radicular pain Arachnoiditis Chronic pain syndrome 02/02/2023 10:06 AM EDT COLONOSCOPY FLEXIBLE PROXIMA L DIAGNOSTIC [...] as of this encounter Visit Diagnoses Diagnosis Pre-op testing- Primary Preoperative examination, unspecified Chronic pain syndrome Lumbar radicular pain Thoracic or lumbosacral neuritis or radiculitis, unspecified Arachnoiditis Meningitis, unspecified Chronic pain syndrome documented in this encounter Care Teams Canal Equipment Maintenance Supervisor Relationship Specialty Start Date End Date Farooq Rodríguez, DO [address] [facility] [place] [address] PCP - General Family Medicine 08/22/19 documented as of this encounter
--- OUTSIDE RECORDS SUMMARY | 2023-09-26 01:48 | External Medical Summary | Summary of Care ---
Author Name Unknown Organization [place] [address] Care Team Providers Care Fight Manager Name Role Phone Farooq Rodríguez DO Primary Care Provider [phone] Reason for Visit * Reason Onset Date Comments Health Maintenance 01/15/2023 Encounter Details Date Type Department Care Team Description 01/15/2023 Telephone Family Practice [facility] [address] [facility] [place] [address] Farooq Rodríguez DO [address] [facility] [place] [address] Health Maintenance Allergies No known active allergiesdocumented as of this encounter (statuses as of 01/15/2023) Medications Medication Sig Dispensed Refills Start Date [...] by mouth in the morning. 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 Pneumonia due to other virus not elsewhere class ified 12/24/2002 04/29/2021 documented as of this encounter (statuses as of 01/15/2023) Immunizations Name Administration Dates Next Due COVID-19 [...] encounter Miscellaneous Notes * Telephone Encounter - Bethany Browne LPN - 01/15/2023 11:02 AM EST Care Gaps Comprehensive Care Outreach Last Office/Telemedicine Visit: 12/06/2022 (in office), 03/15/2020 (telemedicine) Next Office Visit: 01/16/2023 Hemoglobin AIC Results: Lab Results Component Value Date/Time HEMOGLOBIN A1C - [facility] 5.3 05/30/2022 07:40 AM Reviewed Health Maintenance below: Health Maintenance Topic Date Due Albumin/Creatinine Ratio Never done COVID-19 Vaccine (3 - Booster for Pfizer series) 06/04/2021 Depression Screening, Annual for Pts 12 and Over 04/29/2022 Influenza Vaccine (FLU shot) (1) 07/20/2022 *NEPHROLOGY REFERRAL DUE TO RESISTANT HTN Never done GFR - Renal Function 09/18/2023 TSH FOR THYROID MEDICATION MONITORING YEARLY 09/18/2023 Lab appt scheduled Care Gap Outreach Action Taken: Spoke to patient documented in this encounter Plan of Treatment Upcoming Encounters Date Type Specialty Care Team Description 01/16/2023 Laboratory [facility] [place] Scenery [address] [place] [address] 01/16/2023 Office Visit Family Medicine Farooq Rodríguez, DO [address] [place] [address] 01/19/2023 Nurse Only Pain Medicine [facility], Nurse Pain Medicine [address] [place] [address] 02/02/2023 Hospital Encounter Surgery Bishop Jung MD [address] [place] [id number] 02/02/2023 Surgery Surgery Bishop Jung MD [address] [place] [address] INSERTION OR REPLACEMENT SPINAL NEUROSTIMULATOR GENERATOR 05/21/2023 Cardiac Studies Cardiac Studies 05/28/2023 Office Visit Cardiology Kath Carlin PA-C [address] [place] [address] 06/12/2023 Office Visit Family Medicine Farooq Rodríguez, DO [address] [place] [address] Scheduled Procedures Name Priority Associated Diagnoses Date/Ti [...] HTN 01/06/2023 GFR - Renal Function 09/18/2023 09/18/2022, 05/30/2022, 03/14/2022, Additional history exists TSH FOR THYROID MEDICATION MONITORING YEARLY 09/18/2023 09/18/2022, 05/30/2022, 03/14/2022, Additional history exists Diabetes Screening 09/18/2025 09/18/2022, 0 05/30/2022, 05/30/2022, Additional history exists Colonoscopy: Ages 45-75 11/26/2025 11/26/19 16, 11/26/2015, 11/29/2012, Additional history exists Colorectal Cancer Screening (Colonoscopy 10 Years; Sigmoidoscopy 5 Years; Cologuard 3 Years; FOBT 1 Year): Ages 45-75 11/26/2025 Lipid Panel 01/17/2027 01/17/2022, 02/0 01/2021, 02/24/2020, Additional history exists DTaP,Tdap,and Td Vaccines [...] Not on filedocumented as of this encounter Care Teams Fight Manager Relationship Specialty Start Date End Date Farooq Rodríguez, DO [address] [place] [address] PCP - General Family Medicine 08/22/19 documented as of this encounter
--- OUTSIDE RECORDS SUMMARY | 2023-09-26 01:48 | External Medical Summary ---
Author Name Unknown Address Unknown Organization [id number] [address] [place] [address] Laboratory Report Ordering Provider Test Date Status CAROLE RICE 01/16/2023 10:09:07 Final Observation Date Value Abnormality Reference (Units ) Status Albumin 01/16/2023 10:09:07 4.5 3.8-5.0 (g/dL) Final AST (Aspartate aminotransferase) 01/16/2023 10:09:07 44 10-50 (U/L) Final Alk Phos 01/16/2023 10:09:07 77 35-130 (U/L) Final ALT (Alanine aminotransferase) 01/16/2023 10:09:07 86 Above high normal 10-50 (U/L) Final Bilirubin, Total 01/16/2023 10:09:07 0.7 <=1.2 (mg/dL) Final Bilirubin, Direct 01/16/2023 10:09:07 <0.2 0.0-0.3 (mg/dL) Final Protein 01/16/2023 10:09:07 6.6 6.0-8.3 (g/dL) Final Performing Location [facility] [address] [place] [address]
--- OUTSIDE RECORDS SUMMARY | 2023-09-26 01:48 | External Medical Summary ---
Author Name Unknown Address Unknown Organization [facility] [address] [place] [address] Laboratory Report Ordering Provider Test Date Status CLAY HAYES 01/16/2023 10:09:07 Final Observation Date Value Abnormality Reference (Units ) Status Magnesium 01/16/2023 10:09:07 2.1 1.5-2.6 (m g/dL) Final Performing Location [facility] [address] [place] [address]
--- OUTSIDE RECORDS SUMMARY | 2023-09-26 01:48 | External Medical Summary ---
Author Name Unknown Address Unknown Organization [id number] [address] [place] [address] Laboratory Report Ordering Provider Test Date Status CLAY HAYES 01/16/2023 10:09:07 Final Observation Date Value Abnormality Reference (Units ) Status Vitamin B12 01/16/2023 10:09:07 >2000 Above high normal 232-1245 (pg/mL) Final Performing Location [facility] [address] [place] [address]
--- OUTSIDE RECORDS SUMMARY | 2023-09-26 01:48 | External Medical Summary | Summary of Care ---
Author Name Unknown Organization [place] [address] Care Team Providers Care Hearing Screen Coordinator Name Role Phone Farooq Rodríguez DO Primary Care Provider [phone] Reason for Visit * Reason Comments Outpatient Testing Encounter Details Date Type Department Care Team Description 01/16/2023 Laboratory Laboratory [facility] [address] [place] [address] [facility] [address] [facility] [place] [address] Acquired hypothyroidism; Elevated liver enzymes; Chronic diastolic (congestive) heart failure (HCC); Encounter for long-term (current) use of other medications Allergies No known active allergiesdocumented as of [...] by mouth in the morning. 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 Pneumonia due to other [...] Date Type Specialty Care Team Description 01/16/2023 Office Visit Family Medicine Farooq Rodríguez, DO [address] [facility] [place] [place] [address] Arrived 01/19/2023 Nurse Only Pain Medicine [facility], Nurse Pain Medicine [address] [place] [address] 02/02/2023 Hospital Encounter Surgery Bishop Jung MD [address] [place] [address] 02/02/2023 Surgery Surgery Bishop Jung MD [address] [place] [address] INSERTION OR REPLACEMENT SPINAL NEUROSTIMULATOR GENERATOR 05/21/2023 Cardiac Studies Cardiac Studies 05/28/2023 Office Visit Cardiology Kath Carlin PA-C [address] [place] [address] 06/12/2023 Office Visit Family Medicine Farooq Rodríguez, DO [address] [facility] [address] Pending Results Name Type Priority Associated Diagnoses Date /Time TSH WITH FREE T4 IF INDICATED Lab Routine Acquired hypothyroidism 01/16/2023 10:09 AM EST HEPATIC FUNCTION PANEL Lab Routine Elevated liver enzymes 01/16/2023 10:09 AM EST LIPID PANEL WITH DIRECT LDL IF TG IS HIGH Lab Routine Elevated liver enzymes 01/16/2023 10:09 AM EST BASIC METABOLIC PANEL Lab Routine Chronic diastolic (congestive) heart failure (HCC) 01/16/2023 10:09 AM EST MAGNESIUM Lab Routine Encounter for long-term (current) use of other medications 01/16/2023 10:09 AM EST VITAMIN B12 Lab Routine Encounter for long-term (current) use of other medications 01/16/2023 10:09 AM EST Scheduled Procedures Name Priority Associated Diagnoses Date/Ti [...] as of this encounter Visit Diagnoses Diagnosis Acquired hypothyroidism Unspecified hypothyroidism Elevated liver enzymes Nonspecific elevation of levels of transaminase or lactic acid dehydrogenase (LDH) Chronic diastolic (congestive) heart failure (HCC) Encounter for long-term (current) use of other medications Lumbar radicular pain Thoracic or lumbosacral neuritis or radiculitis, unspecified Arachnoiditis Meningitis, unspecified Chronic pain syndrome documented in this encounter Care Teams Hearing Screen Coordinator Relationship Specialty Start Date End Date Farooq Rodríguez, DO [address] [place] [address] PCP - General Family Medicine 08/22/19 documented as of this encounter
--- OUTSIDE RECORDS SUMMARY | 2023-09-26 01:48 | External Medical Summary ---
Author Name Unknown Address Unknown Organization [facility] [place] [place] [address] Laboratory Report Ordering Provider Test Date Status STEPHEN MENDOZA 01/16/2023 10:09:07 Final Observation Date Value Abnormality Reference (Units ) Status BUN 01/16/2023 10:09:07 12 6-20 (mg/dL) Final Creatinine 01/16/2023 10:09:07 1.0 0.6-1.2 (mg/dL) Final Glomerular filtration rate/1.73 sq M.predicted [Volume Rate/Area] in Serum, Plasma or Blood by Creatinine-based formula (CKD-EPI) 01/16/2023 10:09:07 83 >=60 (mL/min) Final eGFR is calculated based on the CKD-EPI 2020 equation SODIUM 01/16/2023 10:09:07 138 135-146 (m mol/L) Final Potassium 01/16/2023 10:09:07 3.9 3.5-5.1 (m mol/L) Final Cl 01/16/2023 10:09:07 102 98-107 (mm ol/L) Final CO2 01/16/2023 10:09:07 26 22-32 (mmo l/L) Final Anion gap 01/16/2023 10:09:07 10 7-15 (mmol /L) Final Glucose 01/16/2023 10:09:07 96 70-120 (mg /dL) Final Calcium 01/16/2023 10:09:07 9.5 8.4-10.2 ( mg/dL) Final Performing Location [facility] [place] [address]
--- OUTSIDE RECORDS SUMMARY | 2023-09-26 01:48 | External Medical Summary ---
Author Name Unknown Address Unknown Organization [facility] [address] [facility] [place] [address] Laboratory Report Ordering Provider Test Date Status JEREMY NETTLES 01/16/2023 10:09:07 Final Observation Date Value Abnormality Reference (Units ) Status T4, Free 01/16/2023 10:09:07 1.2 0.9-1.7 (n g/dL) Final Performing Location [facility] - [address] [place] [address]
--- OUTSIDE RECORDS SUMMARY | 2023-09-26 01:48 | External Medical Summary ---
Author Name Unknown Address Unknown Organization K01:[facility] - [address] [facility] [address] [place] [address] Laboratory Report Ordering Provider Test Date Status JEREMY NETTLES 01/16/2023 10:09:07 Final Observation Date Value Abnormality Reference (Units ) Status TSH 01/16/2023 10:09:07 4.58 Above high normal 0. 27-4.20 (uIU/mL) Final Performing Location [facility] [address] [facility] [address]
--- OUTSIDE RECORDS SUMMARY | 2023-09-26 01:48 | External Medical Summary ---
Author Name Unknown Address Unknown Organization K01[facility] [address] [facility] [place] [address] Laboratory Report Ordering Provider Test Date Status CAROLE RICE 01/16/2023 10:09:07 Final Observation Date Value Abnormality Reference (Units ) Status Triglyceride 01/16/2023 10:09:07 127 <=174 ( mg/dL) Final Triglyceride Reference Range s (mg/dL):
<150 Acceptable
150-174 Borderline high
175-499 High
>=500 Very high Cholesterol 01/16/2023 10:09:07 156 <200 (mg /dL) Final Total Cholesterol Reference Ranges (mg/dL):
<200 Desirable
200-239 Borderline high
>=240 High HDL 01/16/2023 10:09:07 36 Below low normal >39 (mg/dL) Final HDL Cholesterol Reference Ra nges (mg/dL):
>=60 High (Desirable)
<50 Low (Undesirable) For Females
<40 Low (Undesirable) For Males NON-HDL CHOLESTEROL 01/16/2023 10:09:07 120 <=159 (mg/dL) Final Non-HDL Cholesterol Referenc e Range (mg/dL):
<100 Target level for high risk ASCVD patient
<130 Optimal for general population
130-159 Near optimal for general population
160-189 Borderline High
190-219 High
>=220 Very High LDL, (calculated) 01/16/2023 10:09:07 95 <= 129 (mg/dL) Final LDL Cholesterol Reference Ra nges (mg/dL):
<70 Target level for high risk ASCVD patient
<100 Optimal for general population
100-129 Near optimal for general population
130-159 Borderline high
160-189 High
>=190 Very high Performing Location [facility] - [address] [facility] [address]
--- OUTSIDE RECORDS SUMMARY | 2023-09-26 01:48 | External Medical Summary | Summary of Care ---
Author Name Unknown Organization [facility] Address [place] [address] Care Team Providers Care Molten Iron Pourer Name Role Phone Farooq Rodríguez DO Primary Care Provider [phone] Reason for Visit * Reason Onset Date Comments Precert Future 12/13/2022 SCS trial 12/27 Ps ych eval 08/04 Encounter Details Date Type Department Care Team Description 12/13/2022 Telephone Interventional Pain Ctr [place] [address] [place] [address] Bishop Jung MD [address] [place] [address] [place] [id number] Precert Future (SCS trial 12/27 Psych eval 9... Allergies No known active allergiesdocumented as of [...] by mouth in the morning. 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 [place] [address] 02/02/2023 Hospital Encounter Surgery Bishop Jung MD [address] [place] [address] 02/02/2023 Surgery Surgery Bishop Jung MD [address] [place] [address] INSERTION OR REPLACEMENT SPINAL NEUROSTIMULATOR GENERATOR 05/21/2023 Cardiac Studies Cardiac Studies 05/28/2023 Office Visit Cardiology Kath Carlin PA-C [address] [place] [address] 06/12/2023 Office Visit Family Medicine Farooq Rodríguez, DO 200 [place] [address] Scheduled Procedures Name Priority Associated Diagnoses Date/Ti [...] filedocumented as of this encounter Care Teams Molten Iron Pourer Relationship Specialty Start Date End Date Farooq Rodríguez, DO 200 [facility] [place] [address] PCP - General Family Medicine 08/22/19 documented as of this encounter
--- OUTSIDE RECORDS SUMMARY | 2023-09-26 01:49 | External Medical Summary | Summary of Care ---
Author Name Unknown Organization [place] [address] Care Team Providers Care Switch Inspector Name Role Phone Farooq Rodríguez DO Primary Care Provider [phone] Reason for Visit * Reason Onset Date Comments Emergency Department Follow Up 01/11/2023 E R follow up Encounter Details Date Type Department Care Team Description 01/11/2023 Telephone Family Practice [facility] 200 [facility] [place] [address] Farooq Rodríguez DO [address] [facility] [place] [address] Emergency Department Follow Up (ER follow up) Allergies No known active allergiesdocumented as of this encounter (statuses as of 01/12/2023) Medications Medication Sig Dispensed Refills Start Date [...] by mouth in the morning. 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 Appointment scheduled for January 16, 2023 at 10:25 am * Telephone Encounter - HALINA Lamb - 01/11/2023 3:23 PM EST lmom 01/11 * Telephone Encounter - HALINA Meehan - 01/11/2023 11:47 AM EST Patient was seen in ED. Please see call details. [facility] for retaining fluid and breathing difficulty documented in this encounter Plan of Treatment Upcoming Encounters Date Type Specialty Care Team Description 01/16/2023 Office Visit Family Medicine Farooq Rodríguez, DO [address] [place] [address] 01/19/2023 Nurse Only Pain Medicine [facility], Nurse Pain Medicine [address] [place] [address] 02/02/2023 Hospital Encounter Surgery Bishop Jung MD [address] [place] [address] 02/02/2023 Surgery Surgery Bishop Jung MD [address] [place] [address] INSERTION OR REPLACEMENT SPINAL NEUROSTIMULATOR GENERATOR 05/21/2023 Cardiac Studies Cardiac Studies 05/28/2023 Office Visit Cardiology Kath Carlin PA-C [address] [place] [address] 06/12/2023 Office Visit Family Medicine Farooq Rodríguez, DO [address] [place] [address] Scheduled Procedures Name Priority Associated Diagnoses Date/Ti [...] filedocumented as of this encounter Care Teams Switch Inspector Relationship Specialty Start Date End Date Farooq Rodríguez, DO [address] [place] [address] PCP - General Family Medicine 08/22/19 documented as of this encounter
--- OUTSIDE RECORDS SUMMARY | 2023-09-26 01:49 | External Medical Summary | Summary of Care ---
Author Name Unknown Organization [place] [address] Care Team Providers Care Event Decorator Name Role Phone Farooq Rodríguez DO Primary Care Provider [phone] Reason for Visit * Reason Onset Date Comments Emergency Department Follow Up 01/11/2023 E R follow up Encounter Details Date Type Department Care Team Description 01/11/2023 Telephone Family Practice [facility] 200 [facility] [place] [address] Farooq Rodríguez DO 200 [facility] [place] [address] Emergency Department Follow Up (ER follow up) Allergies No known active allergiesdocumented as of this encounter (statuses as of 01/11/2023) Medications Medication Sig Dispensed Refills Start Date [...] by mouth in the morning. 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 Please see call details. Seen at [facility] ER 01/10/23 for retaining fluid and breathing difficulty documented in this encounter Plan of Treatment Upcoming Encounters Date Type Specialty Care Team Description 01/19/2023 Nurse Only Pain Medicine [facility], Nurse Pain Medicine [address] [place] [id number] 02/02/2023 Hospital Encounter Surgery Bishop Jung MD [address] [place] [id number] 02/02/2023 Surgery Surgery Bishop Jung MD [address] [place] [id number] INSERTION OR REPLACEMENT SPINAL NEUROSTIMULATOR GENERATOR 05/21/2023 Cardiac Studies Cardiac Studies 05/28/2023 Office Visit Cardiology Kath Carlin PA-C [address] [place] [address] 06/12/2023 Office Visit Family Medicine Farooq Rodríguez, DO 200 [facility], [place] [address] Scheduled Procedures Name Priority Associated Diagnoses Date/Ti [...] Ages 45-75 11/26/2025 Lipid Panel 01/17/2027 01/17/2022, 01/2021, 02/24/2020, Additional history exists DTaP,Tdap,and Td [...] filedocumented as of this encounter Care Teams Event Decorator Relationship Specialty Start Date End Date Newhouser, Farooq D, DO [address] [place] [address] PCP - General Family Medicine 08/22/19 documented as of this encounter
--- OUTSIDE RECORDS SUMMARY | 2023-09-26 01:49 | External Medical Summary | Summary of Care ---
Author Name Unknown Organization [place] [address] Care Team Providers Care Tennis Camp Instructor Name Role Phone Farooq Rodríguez DO Primary Care Provider [phone] Reason for Visit * Reason Comments Pain Encounter Details Date Type Department Care Team Description 01/03/2023 Office Visit [facility]ventional [facility] [place] [address] [place] [address] Bishop Jung MD 400 [facility] [place] [address] Therapy, Nurse Pain [address] [place] [address] Chronic pain syndrome*; Lumbar radiculopathy Allergies No known active allergiesdocumented as of this encounter (statuses as of 01/03/2023) Medications Medication Sig Dispensed Refills Start Date [...] by mouth in the morning. 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 02/10/2021 Pneumonia due to other virus not elsewhere class ified 12/24/2002 04/29/2021 documented as of this encounter (statuses as of 01/03/2023) Immunizations Name Administration Dates Next Due COVID-19 mRNA, LNP-s, No Pre serve, 2-Dose Series (MediGain) 04/09/2021,03/19/2021 Pneumococcal Conjugate Vacc, 13 Valent (Prevnar) [...] Sign Reading Time Taken Comments Blood Pressure 147/93 01/03/2023 9:53 AM EST Pulse 80 01/03/2023 9:53 AM EST Temperature 36.7 C (98.1 F) 01/03/2023 9:53 AM ES T Respiratory Rate - - Oxygen Saturation 98% 01/03/2023 9:53 AM EST Inhaled Oxygen Concentration - - Weight 126.2 kg (278 lb 3.2 oz) 01/03/2023 9:53 AM EST Height 172.7 cm (5' 8") 01/03/2023 9:53 AM EST Body Mass Index 42.3 01/03/2023 9:53 AM EST documented in this encounter Progress Notes * Bishop Jung MD - 01/03/2023 9:50 AM EST Subjective: Placido Dean is a 62 year old male who we are seeing for SCS trial lead pull. Today, he states greater than 50% relief of back and leg pain during SCS trial period. Here for lead pull. Wishes to proceed with permanent implant. All of his questions were answered. [...] three months Pericardial effusion 01/2003 idiopathic, at [facility] Pilonidal cyst without infection Past Surgical History: Procedure Laterality Date BRONCHOSCOPY W/ BRONCHIAL BIOPSY 2002 biopsy, open and bronchoscopy COLONOSCOPY, DIAGNOSTIC (RECTUM) 11/29/2012 COLONOSCOPY FLEXIBLE PROXIMAL DIAGNOSTIC performed by Cristy Dobbs DO at ENDOSCOPY [facility] COLONOSCOPY, DIAGNOSTIC (RECTUM) 11/26/2015 diverticulosis, repeat 10 yrs/COLONOSCOPY FLEXIBLE PROXIMAL DIAGNOSTIC performed by Cristy Dobbs DO at ENDOSCOPY [facility] DENTAL SURGERY PROCEDURE NEC Dental Surgery Procedure DRAINAGE OF HEART SAC 2002 [facility] REMOVAL OF WRIST LESION SOCIAL AND FAMILY [...] HPI. Objective: Physical Exam: Physical examination: Vitals: There were no vitals taken for this visit. Generally: Alert and Awake, No acute distress. [...] syndrome G89.4 2. Lumbar radiculopathy M54.16 Plan: SCS trial leads pulled. Tips intact. Follow Up: For implant (already scheduled) documented in this encounter Plan of Treatment Upcoming Encounters Date Type Specialty Care Team Description 02/02/2023 Hospital Encounter Surgery Bishop Jung MD [address] [place], [place] [address] [phone] 05/21/2023 Cardiac Studies Cardiac Studies 05/28/2023 Office Visit Cardiology Kath Carlin PA-C 132 [facility] [place] [address] 06/12/2023 Office Visit Family Medicine Farooq Rodríguez, DO 200 [facility] [place] [address] Scheduled Procedures Name Priority Associated Diagnoses Date/Ti me INSERTION OR REPLACEMENT SPI NAL NEUROSTIMULATOR GENERATOR Lumbar radicular pain Arachnoiditis Chronic pain syndrome PERCUTANEOUS IMPLANTATION NEUROSTIMULATOR EPIDURAL Lumbar radicular pain Arachnoiditis Chronic pain syndrome NEUROSTIMULATOR PULSE GENERA TOR/ TRANSMITTER, WITH INTRAOPERATIVE OR SUBSEQUENT PROGRAMMING Lumbar radicular pain Arachnoiditis Chronic pain syndrome COLONOSCOPY FLEXIBLE PROXIMA L DIAGNOSTIC Recall Encounter for screening colonoscopy Health Maintenance Due Date Last Done Comments Alb / Creat Ratio 1980 Cologuard: Ages 45-75 2007 FOBT: Ages 45-75 2007 Sigmoidoscopy: Ages 45-75 2007 COVID-19 Vaccine (3 - Booster for Pfizer series) 06/04/2021 04/09/2021, 03/19/2021 Depression Screening, Annual for Pts 12 and Over 04/29/2022 04/29/2021 Influenza Vaccine (FLU shot) (#1) 2022 09/01/2021, 09/02/2020, 09/02/2020, Additional history exists GFR - Renal Function 09/18/2023 09/18/2022, 05/30/2022, [...] of this encounter Visit Diagnoses Diagnosis Chronic pain syndrome- Primary Lumbar radiculopathy Thoracic or lumbosacral neuritis or radiculitis, unspecified documented in this encounter Care Teams Tennis Camp Instructor Relationship Specialty Start Date End Date Farooq Rodríguez, DO [address] [place] [address] PCP - General Family Medicine 08/22/19 documented as of this encounter
--- OUTSIDE RECORDS SUMMARY | 2023-09-26 01:49 | External Medical Summary | Summary of Care ---
Author Name Unknown Organization [facility] Address [place] [address] Care Team Providers Care Hair Baler Name Role Phone Farooq Rodríguez DO Primary Care Provider [phone] Reason for Visit * Reason Onset Date Comments Procedure 01/05/2023 SCS implant Encounter Details Date Type Department Care Team Description 01/05/2023 Telephone Interventional Pain Center, [facility] 400 [facility] [place] [address] Bishop Jung MD 400 [facility] [place] [phone] Procedure (SCS implant) Allergies No known active allergiesdocumented as of this encounter (statuses as of 01/08/2023) Medications Medication Sig Dispensed Refills Start Date [...] by mouth in the morning. 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 Review Per/post-op instructions, MRSA Swab, Clean kit. Patient provided instructions to hospital. Leni Leonardo LPN * Telephone Encounter - Leni Leonardo LPN - 01/05/2023 2:13 PM EST Left message on patients mobile phone requesting a return call. Patient tentatively scheduled for February 02, 2023 SCS implant. Will need 2 week nurse follow up prior to SCS implant. To review pre/post-op procedure, MRSA swab, clean kit. Leni Leonardo LPN documented in this encounter Plan of Treatment Upcoming Encounters Date Type Specialty Care Team Description 01/19/2023 Nurse Only Pain Medicine [facility], Nurse Pain Medicine [address] [place] [address] 02/02/2023 Hospital Encounter Surgery Bishop Jung MD [address] [place] [address] 05/21/2023 Cardiac Studies Cardiac Studies 05/28/2023 Office Visit Cardiology Kath Carlin PA-C [address] [facility] [place] [address] 06/12/2023 Office Visit Family Medicine Farooq Rodríguez, DO 200 [facility], [place] [address] Scheduled Procedures Name Priority Associated Diagnoses Date/Ti [...] filedocumented as of this encounter Care Teams Hair Baler Relationship Specialty Start Date End Date Farooq Rodríguez, DO [address] [place] [address] PCP - General Family Medicine 08/22/19 documented as of this encounter
--- OUTSIDE RECORDS SUMMARY | 2023-09-26 01:50 | External Medical Summary | Summary of Care ---
Author Name Unknown Organization [place] [address] Care Team Providers Care Vice President Global Digital Marketing Name Role Phone Farooq Rodríguez DO Primary Care Provider [phone] Encounter Details Date Type Department Care Team Description 12/27/2022 Hospital Encounter Radiology [facility] [address] [place] [address] Arrived Allergies No known active allergiesdocumented as of this encounter (statuses as of 12/28/2022) Medications Medication Sig Dispensed Refills Start Date [...] by mouth in the morning. 0 Active [place]-3 Fatty Acids (OMEGA 3 500) 500 MG [...] needed for Dizziness. 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 [...] as of this encounter (statuses as of 12/28/2022) Resolved Problems Problem Noted Date Resolved Date Encounter for surveillance of abnormal nevi 03/2004/29/2021 Dyslipidemia, goal LDL below 100 06/01/2014 12/08/2015 Bronchiectasis 04/18/2003 06/12/2017 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 Pneumonia due to other virus not elsewhere class ified 12/24/2002 04/29/2021 documented as of this encounter (statuses as of 12/28/2022) Immunizations Name Administration Dates Next Due COVID-19 [...] Encounters Date Type Specialty Care Team Description 01/03/2023 Office Visit Pain Medicine [place], Bishop Ash MD [address] [place] [address] Therapy, Nurse Pain 16 [facility] [place] [address] 02/02/2023 Hospital Encounter Surgery Bishop Jung MD [address] [place] [address] 05/21/2023 Cardiac Studies Cardiac Studies 05/28/2023 Office Visit Cardiology Kath Carlin PA-C 132 [facility] [place] [address] 06/12/2023 Office Visit Family Medicine Farooq Rodríguez, DO 200 [facility] [place] [address] Scheduled Procedures Name Priority Associated Diagnoses Date/Ti [...] MD RAD FLUOROSCOPY documented in this encounter Care Teams Vice President Global Digital Marketing Relationship Specialty Start Date End Date Farooq Rodríguez, DO [address] [place] [address] PCP - General Family Medicine 08/22/19 documented as of this encounter
--- OUTSIDE RECORDS SUMMARY | 2023-09-26 01:50 | External Medical Summary | Summary of Care ---
Author Name Unknown Organization [place] [address] Care Team Providers Care Count Room Clerk Name Role Phone Farooq Rodríguez DO Primary Care Provider [phone] Reason for Visit * Reason Comments Pain * Precert (Within 30 days (routine)) - Authorized Specialty Diagnoses / Procedures Referred By Contac t Referred To Contact Diagnoses Radiculopathy, lumbar region Procedures [place] PRQ IMPLTJ NSTIM ELECTRODE ARRAY EPIDURAL Bishop Jung MD [address] [place] [address] [facility] [address] [address] Referral ID Status Reason Start Date Expiration Date V isits Requested Visits Authorized [id number] Authorized Precert 12/13/2022 12/13/2023 999 999 Encounter Details Date Type Department Care Team Description 12/27/2022 Office Visit Interventional Pain Ctr [facility] [place] [place] [address] Bishop [facility] [address] [facility] [place] [address] Chronic pain syndrome*; Lumbar radiculopathy Allergies No [...] by mouth in the morning. 0 Active [place]-3 Fatty Acids (OMEGA 3 500) 500 MG [...] PRN 12/27/2022 12/28/2022 Active isolyte-S pH 7.4 infusionIndications:[facility] Specialist alison pain syndrome,Lumbar radiculopathy 1000 mL IV CONTINUOUS 12/27/2022 12/28/2022 Active buffered lidocaine 1 % inj 10 mLIndications:Chronic pain syndrome,Lumbar radiculopathy 10 mL IJ ONCE 12/27/2022 12/27/2022 Ended ceFAZolin (Ancef) inj 3 gIndications:Chronic pain [...] 100 06/01/2014 12/08/2015 Bronchiectasis 04/18/2003 06/12/2017 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 Pneumonia due to other virus not elsewhere class ified 12/24/2002 04/29/2021 documented as of this encounter (statuses as of 12/28/2022) Immunizations Name Administration Dates Next Due COVID-19 mRNA, LNP-s, No Pre serve, 2-Dose Series (Intentio) 04/09/2021,03/19/2021 Pneumococcal Conjugate Vacc, 13 Valent (Prevnar) [...] or high or low blood pressure - [place] depressed for an extended period of time [...] risk of falling. RESOURCE INFORMATIONAL SITES 1. [place] Department of Aging - www.aging.state.[place] 2. [place] Association of Area Agencies on Aging - provides links to novant health agencies - [facility] or www.[facility].org/agencies.htm LIGHTING - Make sure there is [...] broken or uneven floors or steps - [place] outside steps with a mixture of sand [...] anticoagulants as instructed by primary care doctor, gis analyst, neurologist or pharmacy anticoagulation clinic. You will [...] you have any further questions please call ([facility] [place]), ([facility]), [facility], or ([facility]) between the hours of 7:30 AM and 5:00 PM, Sunday through Sunday. After 5:00 PM or on the weekend call and ask to speak with the Pain Therapy physician renewable energy division manager. Whale Communicationsjasmin is available for communication of non-urgent concerns. [...] draped in the usual sterile fashion.Then a wire welder film was taken to identify the L2 [...] epidural space using a superior medial approach. [id number] technique was used to enter the epidural [...] and the stimulator was programmed by the [employer]ium Nanofiberstronic rep who was present for the entirely [...] HEP- PT was done @ [facility] in [place] - notes in chart Heat/Ice: Yes TENS [...] three months Pericardial effusion 01/2003 [place] [facility] [place] Pilonidal cyst without infection Past Surgical History: Procedure Laterality Date BRONCHOSCOPY W/ BRONCHIAL BIOPSY 2002 biopsy, open and bronchoscopy COLONOSCOPY, DIAGNOSTIC (RECTUM) 11/29/2012 COLONOSCOPY FLEXIBLE PROXIMAL DIAGNOSTIC performed by Cristy Dobbs DO at [facility]COPY [facility] COLONOSCOPY, DIAGNOSTIC (RECTUM) 11/26/2015 diverticulosis, repeat 10 yrs/COLONOSCOPY FLEXIBLE PROXIMAL DIAGNOSTIC performed by Cristy Dobbs DO at ENDOSCOPY [facility] DENTAL SURGERY PROCEDURE NEC Dental Surgery Procedure DRAINAGE OF HEART SAC 2002 [facility] REMOVAL OF WRIST LESION [...] 1 Capsule by mouth in the morning. 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 Employer: [employer] Occupation: [employer] Employer: [employer] Tobacco Use Smoking status: Never Smokeless [...] Not Asked Social History Narrative born in [place], life long resident Social Determinants of Health Financial [...] - 12/27/2022 10:21 AM EST Nurse Assessment Resourcing Advisor (Name): [facility] General Education Education Details:: POST Person Taught:: [...] Team Description 01/03/2023 Office Visit Pain Medicine Bishop Jung MD [address] [place] [address] Therapy, Nurse Pain [address] [place] [address] 02/02/2023 Hospital Encounter Surgery Bishop Jung MD [address] [place] [address] 05/21/2023 Cardiac Studies Cardiac Studies 05/28/2023 Office Visit Cardiology Kath Carlin PA-C 132 [facility] [place] [address] 06/12/2023 Office Visit Family Medicine Farooq Rodríguez, DO [address] [place] [address] Scheduled Procedures Name Priority Associated Diagnoses Date/Ti [...] by a Radiologist. Please see operative note. Kushaljit Ash Dhesi MD RAD FLUOROSCOPY documented in this encounter Visit Diagnoses Diagnosis Chronic pain syndrome- Primary Lumbar radiculopathy Thoracic or lumbosacral neuritis or radiculitis, unspecified documented in this encounter Administered Medications Active Administered Medications - up to 3 most recent administrations Medication Order MAR Action Action Date Dose Rate Site isolyte-S pH 7.4 infusion Intravenous, Plasma-LYTE 148, isolyte-S, and isolyte-S pH 7.4 are considered equivalent - including for MAR barcode scanning., CONTINUOUS, Starting on Sun12/27/22 at 0915, Until Melissa 12/28/22 at 0914 New Bag 12/27/2022 8:25 AM EST 1,000 mL 25 mL/hr sodium chloride 0.9 % flush/inj 10 mL 10 mL, IV Push, ONCE PRN Other, Mixture, Starting on Sun12/27/22 at 0836, Until Melissa 12/28/22 at 2359, For 2 doses, Do not flush if lock, PICC, or central line not in place; IV infusing or unable to flush. Given 12/27/2022 8:57 AM EST 10 mL Inactive Administered Medications - up to 3 [...] Infusion 12/27/2022 8:30 AM EST 3 g documented in this encounter Care Teams Count Room Clerk Relationship Specialty Start Date End Date Farooq Rodríguez, DO 200 [facility] [place] [address] PCP - General Family Medicine 08/22/19 documented as of this encounter
--- OUTSIDE RECORDS SUMMARY | 2023-09-26 01:50 | External Medical Summary | Summary of Care ---
Author Name Unknown Organization [place] [address] Care Team Providers Care Costume Designer Name Role Phone Farooq Rodríguez DO Primary Care Provider [phone] Reason for Visit * Reason Comments Pain * Precert (Within 30 days (routine)) - Authorized Specialty Diagnoses / Procedures Referred By Contac t Referred To Contact Diagnoses Radiculopathy, lumbar region Procedures MA PRQ IMPLTJ NSTIM ELECTRODE ARRAY EPIDURAL Bishop Jung MD [address] [place] [address] [facility] [address] [address] Referral ID Status Reason Start Date Expiration Date V isits Requested Visits Authorized [id number] Authorized Precert 12/13/2022 12/13/2023 999 999 Encounter Details Date Type Department Care Team Description 12/27/2022 Office Visit [facility] [place] [place] [address] Bishop [facility] [address] [facility] [address] Chronic pain syndrome*; Lumbar radiculopathy Allergies No known active allergiesdocumented as of this encounter (statuses as of 12/27/2022) Medications Medication Sig Dispensed Refills Start Date [...] by mouth in the morning. 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 [...] as of this encounter (statuses as of 12/27/2022) Resolved Problems Problem Noted Date Resolved Date Encounter for surveillance of abnormal nevi 03/2004/29/2021 Dyslipidemia, goal LDL below 100 06/01/2014 12/08/2015 Bronchiectasis 04/18/2003 06/12/2017 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 RESOURCE INFORMATIONAL SITES 1. [place] Department of Aging - www.aging.state.[place] 2. [place] Association of Area Agencies on Aging - provides links to formerly [facility] agencies - [facility] or www.[facility].org/agencies.htm LIGHTING - Make sure there is [...] broken or uneven floors or steps - [place] outside steps with a mixture of sand [...] anticoagulants as instructed by primary care doctor, family services worker, neurologist or pharmacy anticoagulation clinic. You will [...] you have any further questions please call ([facility] [place]), ([facility]), [facility], or ([facility]) between the hours of 7:30 AM and 5:00 PM, Sunday through Sunday. After 5:00 PM or on the weekend call and ask to speak with the Pain Therapy physician carton machine operator. BigCalcjasmin is available for communication of non-urgent concerns. documented in this encounter Progress Notes * Bishop Jung MD - 12/27/2022 8:38 [...] draped in the usual sterile fashion.Then a automobile assembly supervisor film was taken to identify the L2 [...] epidural space using a superior medial approach. Wgzb-zm-hmeynbtarc technique was used to enter the epidural [...] and the stimulator was programmed by the [employer] rep who was present for the entirely of the case. He was transported to PACU in stable condition for programming. COMPLICATIONS: None * Bishop Jnug MD - 12/27/2022 8:21 AM EST Placido [...] HEP- PT was done @ [facility] in [place] - notes in chart Heat/Ice: Yes TENS [...] three months [place] [facility] [place] Past Surgical History: Procedure Laterality Date BRONCHOSCOPY W/ BRONCHIAL BIOPSY 2002 biopsy, open and bronchoscopy COLONOSCOPY, DIAGNOSTIC (RECTUM) 11/29/2012 COLONOSCOPY FLEXIBLE PROXIMAL DIAGNOSTIC performed by Cristy Dobbs DO at ENDOSCOPY [facility] COLONOSCOPY, DIAGNOSTIC (RECTUM) 11/26/2015 diverticulosis, repeat 10 yrs/COLONOSCOPY FLEXIBLE PROXIMAL DIAGNOSTIC performed by Cristy Dobbs DO at ENDOSCOPY [facility]ED[facility] Dental Surgery Procedure DRAINAGE OF HEART SAC [place] [facility] WRIST LESION Current Outpatient Medications [...] 1 Capsule by mouth in the morning. 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: [employer] Occupation: [employer] Employer: [employer] 1128 Tobacco Use Smoking status: Never Smokeless [...] Not Asked Social History Narrative born in [place], life long resident Social Determinants of Health [...] - 12/27/2022 10:21 AM EST Nurse Assessment Manager Functional (Name): [facility] General Education Education Details:: POST Person Taught:: [...] Visit Pain Medicine Bishop Jung MD [address] [place] [address] Therapy, Nurse Pain [address] [place] [address] 02/02/2023 Hospital Encounter Surgery Bishop Jung MD [address] [place] [address] 05/21/2023 Cardiac Studies Cardiac Studies 05/28/2023 Office Visit Cardiology Kath Carlin PA-C 132 [facility] [place] [address] 06/12/2023 Office Visit Family Medicine Farooq Rodríguez, DO [address] [facility] [address] Scheduled Procedures Name Priority Associated Diagnoses Date/Ti [...] g documented in this encounter Care Teams Costume Designer Relationship Specialty Start Date End Date Farooq Rodríguez, DO 200 [place] [address] PCP - General Family Medicine 08/22/19 documented as of this encounter
--- OUTSIDE RECORDS SUMMARY | 2023-09-26 01:51 | External Medical Summary | Summary of Care ---
Author Name Unknown Organization [place] [address] Care Team Providers Care Integration Software Developer Name Role Phone Farooq Rodríguez DO Primary Care Provider [phone] Reason for Visit * Reason Comments Pain * Precert (Within 30 days (routine)) - Authorized Specialty Diagnoses / Procedures Referred By Contac t Referred To Contact Diagnoses Radiculopathy, lumbar region Procedures [place] PRQ IMPLTJ NSTIM ELECTRODE ARRAY EPIDURAL Bishop Jung MD [address] [place] [address] [facility] [address] [address] Referral ID Status Reason Start Date Expiration Date V isits Requested Visits Authorized [id number] Authorized Precert 12/13/2022 12/13/2023 999 999 Encounter Details Date Type Department Care Team Description 12/27/2022 Office Visit Interventional Pain Ctr [facility] [address] [place] [address] Bishop Jung MD 400 [facility] [address] Chronic pain syndrome*; Lumbar radiculopathy Allergies No [...] by mouth in the morning. 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 RESOURCE INFORMATIONAL SITES 1. [place] Department of Aging - www.aging.state.[place].us 2. [place] Association of Area Agencies on Aging - provides links to formerly [facility] agencies - [facility] or www.[employer].org/agencies.htm LIGHTING - Make sure there is good [...] broken or uneven floors or steps - [place] outside steps with a mixture of sand [...] anticoagulants as instructed by primary care doctor, commercial marketing specialist, neurologist or pharmacy anticoagulation clinic. You will [...] you have any further questions please call ([facility] [place]), ([facility]), [facility], or ([facility]alerSocket [facility]) between the hours of 7:30 AM and 5:00 PM, Sunday through Sunday. After 5:00 PM or on the weekend call and ask to speak with the Pain Therapy physician construction controller. Zientia is available for communication of non-urgent concerns. [...] draped in the usual sterile fashion.Then a moving picture producer film was taken to identify the L2 [...] epidural space using a superior medial approach. Ijim-iw-eitpfknwpg technique was used to enter the epidural [...] and the stimulator was programmed by the V2contacttronic rep who was present for the entirely [...] HEP- PT was done @ [facility] in [place] - notes in chart Heat/Ice: Yes TENS [...] three months Pericardial effusion 01/2003 idiopathic, at [facility] [place] Pilonidal cyst without infection Past Surgical History: Procedure Laterality Date BRONCHOSCOPY W/ BRONCHIAL BIOPSY 2002 biopsy, open and bronchoscopy COLONOSCOPY, DIAGNOSTIC (RECTUM) 11/29/2012 COLONOSCOPY FLEXIBLE PROXIMAL DIAGNOSTIC performed by Cristy Dobbs DO at ENDOSCOPY [facility] COLONOSCOPY, DIAGNOSTIC (RECTUM) 11/26/2015 diverticulosis, repeat 10 yrs/COLONOSCOPY FLEXIBLE PROXIMAL DIAGNOSTIC performed by Cristy Dobbs DO at ENDOSCOPY [facility] DENTAL SURGERY PROCEDURE NEC Dental Surgery Procedure DRAINAGE OF HEART SAC 2002 [facility] REMOVAL OF WRIST LESION Current Outpatient [...] 1 Capsule by mouth in the morning. 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: [employer] Occupation: [employer] Employer: [employer] 1128 Tobacco Use Smoking status: Never Smokeless [...] Not Asked Social History Narrative born in [place], life long resident Social Determinants of Health [...] - 12/27/2022 10:21 AM EST Nurse Assessment Splitting Machine Operator Helper (Name): [facility] General Education Education Details:: POST Person [...] Medicine Bishop Jung MD [address] [address] Therapy, Nurse Pain [address] [place] [address] 02/02/2023 Hospital Encounter Surgery Bishop Jung MD [address] [place] [address] 05/21/2023 Cardiac Studies Cardiac Studies 05/28/2023 Office Visit Cardiology Kath Carlin PA-C [address] [place] [address] 06/12/2023 Office Visit Family Medicine Farooq Rodríguez, DO [address] [place] [address] Scheduled Procedures Name Priority Associated Diagnoses Date/Ti [...] MAR Action Action Date Dose Rate Site sodium chloride 0.9 % flush/inj 10 mL [...] On Sun12/27/22 at 0915, For 1 dose New Bag 12/27/2022 8:30 AM EST 3 g documented in this encounter Care Teams Integration Software Developer Relationship Specialty Start Date End Date Farooq Rodríguez, DO [address] [place] [address] PCP - General Family Medicine 08/22/19 documented as of this encounter
--- OUTSIDE RECORDS SUMMARY | 2023-09-26 01:51 | External Medical Summary | Summary of Care ---
Author Name Unknown Organization [place] [address] Care Team Providers Care Sew On Operator Name Role Phone AntolinFarooq rogre Primary Care Provider [phone] Reason for Visit * Reason Onset Date Comments Patient Instructions 12/26/2022 SCS trial Encounter Details Date Type Department Care Team Description 12/26/2022 Scheduled Telephone Interventional Pain Ctr [facility] [address] [place] [address] Nurse Sea Phone Call Interventional Pain [address] [place] [address] Allergies No known active allergiesdocumented as of this encounter (statuses as of 12/26/2022) Medications Medication Sig Dispensed Refills Start Date [...] by mouth in the morning. 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 02/10/2021 Pneumonia due to other virus not elsewhere class ified 12/24/2002 04/29/2021 documented as of this encounter (statuses as of 12/26/2022) Immunizations Name Administration Dates Next Due COVID-19 [...] Encounters Date Type Specialty Care Team Description 12/27/2022 Office Visit Pain Medicine Bishop Jung MD [address] [address] 01/03/2023 Office Visit Pain Medicine Bishop Jung MD [address] [place] [address] Therapy, Nurse Pain [address] [place] [address] [place] [address] 02/02/2023 Hospital Encounter Surgery Bishop Jung MD [address] [place] [address] 05/21/2023 Cardiac Studies Cardiac Studies 05/28/2023 Office Visit Cardiology Kath Carlin PA-C [address] [facility] [place] [address] 06/12/2023 Office Visit Family Medicine Farooq Rodríguez, DO [address] [facility] [address] Scheduled Procedures Name Priority Associated Diagnoses Date/Ti [...] filedocumented as of this encounter Care Teams Sew On Operator Relationship Specialty Start Date End Date Farooq Rodríguez, DO [address] [place] [address] PCP - General Family Medicine 08/22/19 documented as of this encounter
--- OUTSIDE RECORDS SUMMARY | 2023-09-26 01:51 | External Medical Summary | Summary of Care ---
Author Name Unknown Organization [place] [address] Care Team Providers Care Sociology Professor Name Role Phone Kelly Mitchell DO Primary Care Provider [phone] Reason for Visit * Reason Comments New Med Request Encounter Details Date Type Department Care Team Description 12/11/2022 Refill Family Practice [facility] [place] [address] [place] [address] Kelly Mitchell DO [address] [facility] [place] [address] Encounter for long-term (current) use of other medications*; Gastroesophageal reflux disease without esophagitis; Migraine variant; CAD (coronary artery disease); HTN, goal below 140/90; Chronic bilateral low back pain with bilateral sciatica; Acute low back pain without sciatica, unspecified back pain laterality Allergies No known active allergiesdocumented as of this encounter (statuses as of 12/12/2022) Medications Medication Sig Dispensed Refills Start Date [...] by mouth in the morning. 0 Active Beaver-3 Fatty Acids (OMEGA 3 500) 500 MG [...] 12/12/2022 Active Gabapentin 300 MG Oral Capsule (Neurontin)Indica tions:Chronic bilateral low back pain with bilateral sciatica Take 1 Capsule by mouth at bedtime. 90 Capsule 0 12/12/2022 Active tiZANidine HCl 4 MG Oral Tablet (Zanaflex)Indicat ions:Acute low back pain without sciatica, unspecified back pain laterality TAKE 1 TABLET BY MOUTH EVERY 6 HOURS NEEDED FOR MUSCLE SPASM 360 Tablet 0 12/12/2022 Active SUMAtriptan (IMITREX) 50 MG Tablet TAKE ONE TABLET BY MOUTH ONE TIME ONLY,REPEAT AFTER TWO HOURS NEEDED MAX OF FOUR TABLETS 12 Tab 0 12/24/2015 3 Discontinued Meclizine HCl 25 MG Oral Tablet (Antivert) TAKE 1 TABLET BY MOUTH THREE TIMES DAILY NEEDED FOR DIZZINESS 30 Tab 5 08/08/2021 3 Discontinued Gabapentin 300 MG Oral Capsule (Neurontin)Indica tions:Chronic bilateral low back pain with bilateral sciatica Take by mouth 1 Capsule before bedtime. 30 Capsule 1 02/14/2022 3 Discontinued Pantoprazole Sodium 40 MG Oral Tablet Delayed Release (Protonix)Indicat ions:Gastroesopha geal reflux disease without esophagitis Take by mouth 1 Tablet in the morning. 90 Tablet 3 02/14/2022 3 Discontinued tiZANidine HCl 4 MG Oral Tablet (Zanaflex)Indicat ions:Acute low back pain without sciatica, unspecified back pain laterality TAKE 1 TABLET BY MOUTH EVERY 6 HOURS NEEDED FOR MUSCLE SPASM 30 Tablet 5 09/01/2022 3 Discontinued Potassium Chloride ER 10 MEQ Oral Tablet Extended ReleaseIndication s:HTN, goal below 140/90 Take 1 tablet by mouth once daily 90 Tablet 1 10/04/2022 3 Discontinued Amitriptyline HCl 25 MG Oral Tablet (Elavil)Indicatio ns:Migraine variant TAKE 1 TABLET BY MOUTH AT BEDTIME 90 Tablet 1 10/17/2022 3 Discontinued Spironolactone 25 MG Oral Tablet (Aldactone) TAKE 1 TABLET BY MOUTH IN THE MORNING 90 Tablet 0 11/06/2022 3 Discontinued Atorvastatin Calcium 40 MG Oral Tablet (Lipitor)Indicati ons:CAD (coronary artery disease) Take 1 tablet by mouth once daily 90 Tablet 0 11/06/2022 3 Discontinued Furosemide 40 MG Oral Tablet (Lasix) Take 1 and 1/2 tablet every day 45 Tablet 11 12/06/2022 3 Discontinued documented as of this encounter (statuses as of 12/12/2022) Active Problems Problem Noted Date 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 [...] as of this encounter (statuses as of 12/12/2022) Resolved Problems Problem Noted Date Resolved Date Encounter for surveillance of abnormal nevi 03/2004/29/2021 Dyslipidemia, goal LDL below 100 06/01/2014 12/08/2015 Bronchiectasis 04/18/2003 06/12/2017 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 Authorizing Provider: KELLY MITCHELL Ordering User: FREDDY WILLIAMSON Pantoprazole Sodium 40 MG Oral Tablet Paola*90 Tab*1 Sig: Take 1 Tablet by mouth in the morning. Authorizing Provider: KELLY MITCHELL Ordering User: ROBINA IWLLIAMSON T Amitriptyline HCl 25 MG Oral Tablet (Elavi*90 Tab*0 Sig: Take 1 Tablet by mouth at bedtime. Authorizing Provider: KELLY MITCHELL Ordering User: FREDDY WILLIAMSON Atorvastatin Calcium 40 MG Oral Tablet (Li*90 Tab*1 Sig: Take 1 Tablet by mouth daily. Authorizing Provider: KELLY MITCHELL Ordering User: FREDDY WILLIAMSON Potassium Chloride ER 10 MEQ Oral Tablet E*90 Tab*0 Sig: Take 1 Tablet by mouth daily. Authorizing Provider: KELLY MITCHELL Ordering User: FREDDY WILLIAMSON Spironolactone 25 MG Oral Tablet (Aldacton*90 Tab*1 Sig: Take 1 Tablet by mouth in the morning. Authorizing Provider: KELLY MITCHELL Ordering User: FREDDY WILLIAMSON SUMAtriptan Succinate 50 MG Oral Tablet (I*30 Tab*0 Sig: TAKE ONE TABLET BY MOUTH ONE TIME ONLY,REPEAT AFTER TWO HOURS NEEDED MAX OF FOUR TABLETS Authorizing Provider: HEMALATHA HIGUERA Meclizine HCl 25 MG Oral Tablet (Antivert) 270 Ta*1 Sig: Take 1 Tablet by mouth 3 times a day as needed for Dizziness. Authorizing Provider: HEMALATHA HIGUERA A Gabapentin 300 MG Oral Capsule (Neurontin) 90 Cap*0 Sig: Take 1 Capsule by mouth at bedtime. Authorizing Provider: HEMALATHA HIGUERA A tiZANidine HCl 4 MG Oral Tablet (Zanaflex) 360 Ta*0 Sig: TAKE 1 TABLET BY MOUTH EVERY 6 HOURS NEEDED FOR MUSCLE SPASM Authorizing Provider: HEMALATHA HIGUERA * Telephone Encounter - Freddy Williamson [facility] - 12/12/2022 3:56 PM ESTPending Prescriptions: Disp Refills SUMAtriptan Succinate 50 MG Oral Tablet (I*30 Tab*0 Sig: TAKE ONE TABLET BY MOUTH ONE TIME ONLY,REPEAT AFTER TWO HOURS NEEDED MAX OF FOUR TABLETS Meclizine HCl 25 MG Oral Tablet (Antivert) 270 Ta*1 Sig: Take 1 Tablet by mouth 3 times a day as needed for Dizziness. Gabapentin 300 MG Oral Capsule (Neurontin) 90 Cap*0 Sig: Take 1 Capsule by mouth at bedtime. tiZANidine HCl 4 MG Oral Tablet (Zanaflex) 360 Ta*0 Sig: TAKE 1 TABLET BY MOUTH EVERY 6 HOURS NEEDED FOR MUSCLE SPASM Signed Prescriptions: Disp Refills Furosemide 40 MG Oral Tablet (Lasix) 135 Ta*3 Sig: Take 1.5 Tablets by mouth in the morning. Authorizing Provider: KELLY MITCHELL Ordering User: FREDDY RIZO Pantoprazole Sodium 40 MG Oral Tablet Paola*90 Tab*1 Sig: Take 1 Tablet by mouth in the morning. Authorizing Provider: KELLY MITCHELL Ordering User: FREDDY WILLIAMSON Amitriptyline HCl 25 MG Oral Tablet (Elavi*90 Tab*0 Sig: Take 1 Tablet by mouth at bedtime. Authorizing Provider: KELLY MITCHELL Ordering User: FREDDY WILLIAMSON Atorvastatin Calcium 40 MG Oral Tablet (Li *90 Tab*1 Sig: Take 1 Tablet by mouth daily. Authorizing Provider: KELLY MITCHELL Ordering User: FREDDY WILLIAMSON Potassium Chloride ER 10 MEQ Oral Tablet E*90 Tab*0 Sig: Take 1 Tablet by mouth daily. Authorizing Provider: KELLY MITCHELL Ordering User: FREDDY WILLIAMSON Spironolactone 25 MG Oral Tablet (Aldacton*90 Tab*1 Sig: Take 1 Tablet by mouth in the morning. Leroy martínez Provider: KELLY MITCHELL Ordering User: FREDDY WILLIAMSON * Telephone Encounter - Freddy Williamson RPh - 12/12/2022 3:42 PM EST Telepharmacy is currently not authorized to approve refills for Gabapentin and Tizanidine per refill protocol. Meclizine 25 mg prescribed on 08/08/21 and sumatriptan 50 mg never filled as per adherence tracker. Please approve if appropriate. Rerouted remaining refills for Amitriptyline and Potassium and full Furosemide RX to new pharmacy as requested. Provided 90 day supply with 1 refill on Atorvastatin, Pantoprazole and Spironolactone until upcoming OV on 06/12/2023 where labs will be drawn. Per refill protocol patient needs magnesium and vitamin B-12 labs on file within the past 2 years while using PPIs. Lab work ordered. Patient may obtain with next routine labs. Thank you, Freddy Williamson, PharmD Clinical Pharmacist Telepharmacy [phone] 12/12/2022, 3:49 PM documented in this encounter Plan of Treatment Upcoming Encounters Date Type Specialty Care Team Description 05/21/2023 Cardiac Studies Cardiac Studies 05/28/2023 Office Visit Cardiology Kath Carlin PA-C [address] [facility] [place] [address] 06/12/2023 Office Visit Family Medicine Kelly Mitchell[facility] DO [address] [facility] [address] Scheduled Orders Name Type Priority Associated Diagnoses Orde r Schedule MAGNESIUM Lab Routine Encounter for long-term (current) use of other medications Expected: 12/19/2022 (Approximate), Expires: 12/12/2023 VITAMIN B12 Lab Routine Encounter for long-term (current) use of other medications Expected: 12/19/2022 (Approximate), Expires: 12/12/2023 Scheduled Procedures Name Priority Associated Diagnoses Date/Ti [...] long-term (current) use of other medications- Primary Gastroesophageal reflux disease without esophagitis Esophageal reflux Migraine variant Variants of migraine, not elsewhere classified, without mention of intractable migraine without mention of status migrainosus CAD (coronary artery disease) Coronary atherosclerosis of unspecified type of vessel, squaxin or graft HTN, goal below 140/90 Unspecified essential hypertension Chronic bilateral low back pain with bilateral sciatica Acute low back pain without sciatica, unspecified back pain laterality documented in this encounter Care Teams Sociology Professor Relationship Specialty Start Date End Date Kelly Mitchell, DO 200 [place] [address] PCP - General Family Medicine 08/22/19 documented as of this encounter
--- OUTSIDE RECORDS SUMMARY | 2023-09-26 01:51 | External Medical Summary | Summary of Care ---
Author Name Unknown Organization [place] [address] Care Team Providers Care Cuprous Chloride Helper Name Role Phone Kelly Mitchell DO Primary Care Provider [phone] Reason for Visit * Reason Comments Pain * Evaluate & Treat - Unlimited Visits (Within 30 days (routine)) - Pending Review Specialty Diagnoses / Procedures Referred By Contitzel t Referred To Contact Pain Management / Pain Medicine Diagnoses Arachnoiditis Chronic pain syndrome Kelly Mitchell DO [address] [place] [address] Referral ID Status Reason Start Date Expiration Date Visits Requested Visits Authorized [id number] Pending Review Specialty Services Required 12/06/[phone] Encounter Details Date Type Department Care Team Description 12/12/2022 Office [facility] [address] [place] [address] Vijay Hernandez PA-C [address] [place] [address] Lumbar radiculopathy*; Arachnoiditis; Chronic pain syndrome Allergies No known active allergiesdocumented as of [...] a day. 1 Inhaler 1 08/30/2015 Active SUMAtriptan (IMITREX) 50 MG Tablet TAKE ONE TABLET BY MOUTH ONE TIME ONLY,REPEAT AFTER TWO HOURS NEEDED MAX OF FOUR TABLETS 12 Tab 0 12/24/2015 Active Mometasone Furo-Formoterol Fum 100-5 MCG/ACT Inhalation Aerosol Inhale 1 Puff by mouth as needed. 0 08/03/2016 Active Multiple Vitamins-Minerals (MENS MULTIPLE VITAMIN/LYCOPENE) TABS Take by mouth daily. 0 Active vitamin e (AQUASOL E) 400 UNIT Capsule Take 1 Capsule by mouth in the morning. 0 Active [place]-3 Fatty Acids (OMEGA 3 500) 500 MG CAPS Take by mouth. 0 Active Azelastine HCl 0.1 % nasal sprayIndications:Chr onic rhinitis USE 2 SPRAY(S) IN EACH NOSTRIL TWICE DAILY 90 mL 1 04/03/2019 Active Meclizine HCl 25 MG Oral Tablet (Antivert) TAKE 1 TABLET BY MOUTH THREE TIMES DAILY NEEDED FOR DIZZINESS 30 Tab 5 08/08/2021 Active Gabapentin 300 MG Oral Capsule (Neurontin)Indicatio ns:Chronic bilateral low back pain with bilateral sciatica Take by mouth 1 Capsule before bedtime. 30 Capsule 1 02/14/2022 Active Pantoprazole Sodium 40 MG Oral Tablet Delayed Release (Protonix)Indication s:Gastroesophageal reflux disease without esophagitis Take by mouth 1 Tablet in the morning. 90 Tablet 3 02/14/2022 Active tiZANidine HCl 4 MG Oral Tablet (Zanaflex)Indication s:Acute low back pain without sciatica, unspecified back pain laterality TAKE 1 TABLET BY MOUTH EVERY 6 HOURS NEEDED FOR MUSCLE SPASM 30 Tablet 5 09/01/2022 Active Levothyroxine Sodium 125 MCG Oral Tablet (Levoxyl) Take by mouth 1 Tablet in the morning. (at least 30 min prior to breakfast or other meds) Repeat labs after 11/01. 30 Tablet 11 09/20/2022 Active Potassium Chloride ER 10 MEQ Oral Tablet Extended ReleaseIndications:H TN, goal below 140/90 Take 1 tablet by mouth once daily 90 Tablet 1 10/04/2022 Active Amitriptyline HCl 25 MG Oral Tablet (Elavil)Indications: Migraine variant TAKE 1 TABLET BY MOUTH AT BEDTIME 90 Tablet 1 10/17/2022 Active Spironolactone 25 MG Oral Tablet (Aldactone) TAKE 1 TABLET BY MOUTH IN THE MORNING 90 Tablet 0 11/06/2022 Active Atorvastatin Calcium 40 MG Oral Tablet (Lipitor)Indications :CAD (coronary artery disease) Take 1 tablet by mouth once daily 90 Tablet 0 11/06/2022 Active Furosemide 40 MG Oral Tablet (Lasix) Take 1 and 1/2 tablet every day 45 Tablet 11 12/06/2022 Active Lisinopril 40 MG Oral TabletIndications:HT N, goal below 140/90 Take 1 Tablet by mouth in the morning. 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 Placido Woodward is a 62 year old male who is here today with the complaints of low back and bilateral leg pain. Pain started about December of last year without clear inciting event and has progressively worsened despite conservative therapies. I reviewed his MRI and discussed his options. Has already been worked upwith Dr. Rodriguez and neurosurgery for SCS and would like to proceed. Plan was discussed with the pt, risk and benefit of the procedure and alternative treatments were explained. Pt verbalized his understanding and agreed with the plan. Jhoan Jung M.D. * Vijay Hernandez PA-C - 12/12/2022 1:23 PM EST Interventional Pain Medicine [address] [place] [id number] Fx: [phone] PCP: KELLY MITCHELL [address] [place] [id number] [phone] CC: Pain HPI: Placido Woodward is a 62 year old male referred by Kelly Mitchell DO for consultation, evaluation, and treatment. Patient [...] HEP- PT was done @ [facility] in [place] - notes in chart Heat/Ice: Yes TENS [...] three months [place]icard[place] [facility] [place] without infection Past Surgical History: Procedure Laterality Date BRONCHOSCOPY W/ BRONCHIAL BIOPSY 2002 biopsy, open and bronchoscopy COLONOSCOPY, DIAGNOSTIC (RECTUM) 11/29/2012 COLONOSCOPY FLEXIBLE PROXIMAL DIAGNOSTIC performed by Cristy Dobbs DO at [facility] COLONOSCOPY, DIAGNOSTIC (RECTUM) 11/26/2015 diverticulosis, repeat 10 yrs/COLONOSCOPY FLEXIBLE PROXIMAL DIAGNOSTIC performed by Cristy Dobbs DO at END[facility]COPY [facility] DENTAL SURGERY PROCEDURE NEC Dental Surgery Procedure DRAINAGE OF HEART SAC [place] [facility] [place]AL OF WRIST LESION Current Outpatient [...] 1 Capsule by mouth in the morning. 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 Jung Return for SCS trial Informed consent to be done by physician prior to procedure. Procedure subject to change following evaluation day of procedure. Continue with current prescriptions per Kelly Mitchell DO I spent a total of Greater than 55 mins (exact time 60 mins) on the date of service in preparation,delivery, and documentation of the care provided to Placido Woodward excluding any time spent in the performance of separately billed services. Vijay Hernandez PA-C 12/12/2022 1:23 PM documented in this encounter Plan of Treatment Upcoming Encounters Date Type Specialty Care Team Description 05/21/2023 Cardiac Studies Cardiac Studies 05/28/2023 Office Visit Cardiology Kath Carlin PA-C [address] [place] [address] 06/12/2023 Office Visit Family Medicine Kelly Mitchell, DO [address] [place] [address] Scheduled Procedures Name Priority Associated Diagnoses Date/Ti me COLONOSCOPY FLEXIBLE PROXIMA L DIAGNOSTIC Recall Encounter for screening colonoscopy Scheduled Referrals Name Type Priority Associated Diagnoses Orde r Schedule PAIN MEDICINE REFERRAL OP Referral Within 30 days (routine) Arachnoiditis Chronic pain syndrome Ordered: 12/06/2022 Health Maintenance Due Date Last Done Comments [...] as of this encounter Visit Diagnoses Diagnosis Lumbar radiculopathy- Primary Thoracic or lumbosacral neuritis or radiculitis, unspecified Arachnoiditis Meningitis, unspecified Chronic pain syndrome documented in this encounter Care Teams Cuprous Chloride Helper Relationship Specialty Start Date End Date Kelly Mitchell, DO [address] [place] [address] PCP - General Family Medicine 08/22/19 documented as of this encounter
--- OUTSIDE RECORDS SUMMARY | 2023-09-26 01:51 | External Medical Summary | Summary of Care ---
Author Name Unknown Organization [facility] Address [place] [address] Care Team Providers Care Manager Solar Name Role Phone Farooq Rodríguez Primary Care Provider [phone] Reason for Visit * Reason Comments New Med Request Encounter Details Date Type Department Care Team Description 12/11/2022 Refill Cardiology, [facility] [address] [place] [address] Krystal Lam PA-C [address] [facility] [place] [address] HTN, goal below 140/90 Allergies No known active allergiesdocumented as of this encounter (statuses as of 12/11/2022) Medications Medication Sig Dispensed Refills Start Date End Date Status ASPIRIN 81 MG PO TABS One daily 0 Active ZYRTEC ALLERGY 10 MG PO TABS one daily 0 Active ALBUTEROL SULFATE (2.5 MG/3ML) 0.083% IN [facility] Inhale via nebulizer . 0 Active HM [...] by mouth in the morning. 0 Active [place]-3 Fatty Acids (OMEGA 3 500) 500 MG CAPS Take by mouth. 0 Acti ve Azelastine HCl 0.1 % nasal sprayIndications: Chronic rhinitis USE 2 SPRAY(S) IN EACH NOSTRIL TWICE DAILY 90 mL 1 04/03/2019 Active Meclizine HCl 25 MG Oral Tablet (Antivert) TAKE 1 TABLET BY MOUTH THREE TIMES DAILY NEEDED FOR DIZZINESS 30 Tab 5 08/08/2021 Active Gabapentin 300 MG Oral Capsule (Neurontin)Indica [...] 11 12/06/2022 Active Lisinopril 40 MG Oral TabletIndications :HTN, goal below 140/90 Take 1 Tablet by mouth in the morning. 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 Authorizing Provider: KRYSTAL LAM * Telephone Encounter - Trey Marquis RN - 12/11/2022 3:06 PM ESTPending Prescriptions: Disp Refills Lisinopril 40 MG Oral Tablet 90 Tab*3 Sig: Take 1 Tablet by mouth in the morning. * Telephone Encounter - Trey Marquis RN - 12/11/2022 3:04 PM EST Pending Prescriptions: Disp Refills Lisinopril 40 MG Oral Tablet [Pharmacy Me*90 Tab*3 Sig: Take 1 Tablet by mouth in the morning. Last Visit: 11/21/2022 (in office), Visit date not found (telemedicine) Next Visit: 05/28/2023 Last medication order date: 07/04/2022 Have you choosen a preferred pharm?? yes Patient Active Problem List Diagnosis Code Pericardial [...] (BMI) of 40.0 to 44.9 in adult ([facility]) Z68.41 Arachnoiditis G03.9 Chronic pain syndrome G89.4 Labs: Lab Results Component Value Date/Time CREATININE (GRL) 1.1 05/14/1997 09:48 AM CREATININE - [facility] 1.1 09/18/2022 12:21 PM CREATININE - [facility] 1.1 11/21/2019 09:45 AM CREATININE ISTAT 0.9 01/22/2013 10:24 AM Lab Results Component Value Date/Time POTASSIUM - [facility] 3.6 09/18/2022 12:21 PM POTASSIUM - [facility] 4.3 11/21/2019 09:45 AM POTASSIUM POCT - [facility] 3.5 01/22/2013 10:24 AM POTASSIUM, WHOLE BLOOD - [facility] 3.9 12/22/2002 07:00 PM Lab Results Component Value Date/Time TSH - [facility] 4.86 (H) 09/18/2022 12:21 PM TSH - [facility] 3.60 11/21/2019 09:45 AM Lab Results Component Value Date/Time LDL CHOLESTEROL (CALCULATED) - [facility] 102 01/17/2022 11:31 AM LDL CHOLESTEROL (CALCULATED) - [facility] 81 12/22/2020 12:12 PM LDL CHOLESTEROL (CALCULATED) - [facility] 78 02/24/2020 07:57 AM LDL CHOLESTEROL (CALCULATED) - [facility] 97 01/14/2019 07:31 AM LDL CHOLESTEROL (DIRECT MEASURE) - [facility] NOT APPLICABLE 02/24/2020 07:57 AM LDL CHOLESTEROL (DIRECT MEASURE) - [facility] NOT APPLICABLE 01/14/2019 07:31 AM LDL CHOLESTEROL (DIRECT MEASURE) - [facility] 136 (H) 05/12/2011 02:10 PM Lab Results Component Value Date/Time ALT - [facility] 87 (H) 09/18/2022 12:21 PM ALT - [facility] 86 (H) 09/18/2022 12:21 PM ALT - [facility] 33 11/21/2019 09:45 AM Hemoglobin AIC Results: Lab Results Component Value Date/Time HEMOGLOBIN A1C - [facility] 5.3 05/30/2022 07:40 AM documented in this encounter Plan of Treatment Upcoming Encounters Date Type Specialty Care Team Description 12/12/2022 Office Visit Pain Medicine Vijay Hernandez PA-C [address] [facility] [place] [address] 05/21/2023 Cardiac Studies Cardiac Studies 05/28/2023 Office Visit Cardiology Krystal aLm PA-C [address] [facility] [place] [address] 06/12/2023 Office Visit Family Medicine Farooq Rodríguez, DO [address] [facility] [address] Scheduled Procedures Name Priority Associated Diagnoses Date/Ti [...] hypertension documented in this encounter Care Teams Manager Solar Relationship Specialty Start Date End Date Farooq Rodríguez, DO [address] [place] [address] PCP - General Family Medicine 08/22/19 documented as of this encounter
--- OUTSIDE RECORDS SUMMARY | 2023-09-26 01:52 | External Medical Summary | Summary of Care ---
Author Name Unknown Organization [facility] Address [place] [address] Care Team Providers Care Hazardous Material Specialist Name Role Phone Farooq Rodríguez DO Primary Care Provider [phone] Reason for Visit * Reason Onset Date Comments Appointment 12/06/2022 Encounter Details Date Type Department Care Team Description 12/06/2022 Telephone Family Practice [facility] [address] [place] [address] Farooq Rodríguez DO [address] [facility] [place] [address] Appointment Allergies No known active allergiesdocumented as of this encounter (statuses as of 12/06/2022) Medications Medication Sig Dispensed Refills Start Date [...] by mouth in the morning. 0 Active [place]-3 Fatty Acids (OMEGA 3 500) 500 MG [...] the morning. 90 Tablet 3 02/14/2022 Active Lisinopril 40 MG Oral TabletIndications:HT N, goal below 140/90 Take 1 tablet by mouth once daily 90 Tablet 3 07/04/2022 Active tiZANidine HCl 4 MG Oral Tablet [...] every day 45 Tablet 11 12/06/2022 Active documented as of this encounter (statuses as of 12/06/2022) Active Problems Problem Noted Date 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 [...] as of this encounter (statuses as of 12/06/2022) Resolved Problems Problem Noted Date Resolved Date Encounter for surveillance of abnormal nevi 03/2004/29/2021 Dyslipidemia, goal LDL below 100 06/01/2014 12/08/2015 Bronchiectasis 04/18/2003 06/12/2017 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 Pneumonia due to other virus not elsewhere class ified 12/24/2002 04/29/2021 documented as of this encounter (statuses as of 12/06/2022) Immunizations Name Administration Dates Next Due COVID-19 [...] * Telephone Encounter - HALINA Lamb - 12/06/2022 3:05 PM EST PAIN MEDICINE REFERRAL OP Status: Needs Scheduling Requested appt date: Authorizing: Farooq Rodríguez DO in [facility] Referral: [id number] (Pending Review) Priority: Within 30 days (routine) Diagnosis: Arachnoiditis [G03.9] Chronic pain syndrome [G89.4] Denied scheduling d Please call to schedule walter documented in this encounter Plan of Treatment Upcoming Encounters Date Type Specialty Care Team Description 05/21/2023 Cardiac Studies Cardiac Studies 05/28/2023 Office Visit Cardiology Kath Carlin PA-C [address] [place] [address] [place] [address] 06/12/2023 Office Visit Family Medicine Farooq Rodríguez, DO [address] [place] [address] Scheduled Procedures Name Priority Associated Diagnoses Date/Ti [...] Ages 45-75 11/26/2025 Lipid Panel 01/17/2027 01/17/2022, 0201/2021, 02/24/2020, Additional history exists DTaP,Tdap,and Td Vaccines [...] filedocumented as of this encounter Care Teams Hazardous Material Specialist Relationship Specialty Start Date End Date Farooq Rodríguez, DO [address] [place] [address] PCP - General Family Medicine 08/22/19 documented as of this encounter
--- OUTSIDE RECORDS SUMMARY | 2023-09-26 01:52 | External Medical Summary | Summary of Care ---
Author Name Unknown Organization [place] [address] Care Team Providers Care Analog Design Engineer Name Role Phone Farooq Rodríguez DO Primary Care Provider [phone] Reason for Visit * Reason Onset Date Comments Advice 11/21/2022 Encounter Details Date Type Department Care Team Description 11/21/2022 Telephone [facility] [place] [address] [place] [address] Specified, Z No Resource [address] [place] [address] Advice Allergies No known active allergiesdocumented as of this encounter (statuses as of 11/22/2022) Medications Medication Sig Dispensed Refills Start Date [...] by mouth in the morning. 0 Active [place]-3 Fatty Acids (OMEGA 3 500) 500 MG CAPS Take by mouth. 0 Active Azelastine HCl 0.1 % nasal sprayIndications:Ch ronic rhinitis USE 2 SPRAY(S) IN EACH NOSTRIL TWICE DAILY 90 mL 1 04/03/2019 Active Meclizine HCl 25 MG Oral Tablet (Antivert) TAKE 1 TABLET BY MOUTH THREE TIMES DAILY NEEDED FOR DIZZINESS 30 Tab 5 08/08/2021 Active Gabapentin 300 MG Oral Capsule (Neurontin)Indicati ons:Chronic bilateral low back pain with bilateral sciatica Take by mouth 1 Capsule before bedtime. 30 Capsule 1 02/14/2022 Active Pantoprazole Sodium 40 MG Oral Tablet Delayed Release (Protonix)Indicatio ns:Gastroesophageal reflux disease without esophagitis Take by mouth 1 Tablet in the morning. 90 Tablet 3 02/14/2022 Active Furosemide 40 MG Oral Tablet (Lasix) Take 1 tablet in the morning. Take an additional 1/2 tablet on Sunday, Sunday, Sunday 45 Tablet 11 05/18/2022 Active Lisinopril 40 MG Oral TabletIndications:H TN, goal below 140/90 Take 1 tablet by mouth once daily 90 Tablet 3 07/04/2022 Active tiZANidine HCl 4 MG Oral Tablet (Zanaflex)Indicatio [...] ReleaseIndications: HTN, goal below 140/90 Take 1 tablet by mouth once daily 90 Tablet 1 10/04/2022 Active Amitriptyline HCl 25 MG Oral Tablet (Elavil)Indications :Migraine variant TAKE 1 TABLET BY MOUTH AT BEDTIME 90 Tablet 1 10/17/2022 Active Spironolactone 25 MG Oral Tablet (Aldactone) TAKE 1 TABLET BY MOUTH IN THE MORNING 90 Tablet 0 11/06/2022 Active Atorvastatin Calcium 40 MG Oral Tablet (Lipitor)Indication s:CAD (coronary artery disease) Take 1 tablet by mouth once daily 90 Tablet 0 11/06/2022 Active documented as of this encounter (statuses as of 11/22/2022) Active Problems Problem Noted Date Body mass index (BMI) of 40.0 to [...] Subjective tinnitus 01/07/2013 Noise-induced hearing loss 01/07/2013 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 Uvular hypertrophy 01/07/2013 Esophageal reflux 01/07/2013 HTN, goal below 140/90 11/20/2012 Beta-blockers contraindicated 08/07/2012 PILONIDAL CYST W-O ABSC 07/22/2004 Pericardial effusion 04/18/2003 documented as of this encounter (statuses as of 11/22/2022) Resolved Problems Problem Noted Date Resolved Date Encounter for surveillance of abnormal nevi 03/2004/29/2021 Dyslipidemia, goal LDL below 100 06/01/2014 12/08/2015 Hypoactive thyroid 01/07/2013 12/11/2016 Bronchiectasis 04/18/2003 06/12/2017 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 I gave the number for the pain clinic for her to call and also my direct number if she has questions * Telephone Encounter - HALINA Ureña - 11/21/2022 3:52 PM EST Patient verified identity by spelling of last name and date. Patient and his Bev called in wanting to speak with Dr. Valerio's team regarding questions about if Dr. Valerio would be willing to do his surgery instead of the doctor at [facility]. She asked that someone give her a call back at [phone] to discuss options. documented in this encounter Plan of Treatment Upcoming Encounters Date Type Specialty Care Team Description 05/21/2023 Cardiac Studies Cardiac Studies 05/28/2023 Office Visit Cardiology Kath Carlin PA-C [address] [facility] [place] [address] Scheduled Procedures Name Priority Associated Diagnoses Date/Ti [...] filedocumented as of this encounter Care Teams Analog Design Engineer Relationship Specialty Start Date End Date Farooq Rodríguez, DO [address] [place] [address] PCP - General Family Medicine 08/22/19 documented as of this encounter
--- OUTSIDE RECORDS SUMMARY | 2023-09-26 01:52 | External Medical Summary | Summary of Care ---
Author Name Unknown Organization [facility] Address [place] [address] Care Team Providers Care Automotive Service Consultant Name Role Phone Farooq Rodríguez Primary Care Provider [phone] Reason for Visit * Reason Onset Date Comments Follow Up 11/23/2022 Encounter Details Date Type Department Care Team Description 11/23/2022 Telephone Interventional Pain Center, [facility] [address] [place] [id number] Gaurang Rodriguez DO [address] [place] [phone] Follow Up Allergies No known active allergiesdocumented as of this encounter (statuses as of 11/28/2022) Medications Medication Sig Dispensed Refills Start Date [...] by mouth in the morning. 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 State she called [facility] and they have docs there that will do it and she has no problem going there if it can be done sooner than here. Advised her I am trying to follow up on this but have not received scheduling answers yet and will be in contact. * Telephone Encounter - HALINA Nelson - 11/23/2022 9:06 AM EST Patients called in and is asking about scheduling for the trial. documented in this encounter Plan of Treatment Upcoming Encounters Date Type Specialty Care Team Description 05/21/2023 Cardiac Studies Cardiac Studies 05/28/2023 Office Visit Cardiology Kath Carlin PA-C [address] [facility] [place] [address] Scheduled Procedures Name Priority Associated Diagnoses Date/Ti [...] filedocumented as of this encounter Care Teams Automotive Service Consultant Relationship Specialty Start Date End Date Farooq Rodríguez, DO [address] [facility] [place] [address] PCP - General Family Medicine 08/22/19 documented as of this encounter
--- OUTSIDE RECORDS SUMMARY | 2023-09-26 01:52 | External Medical Summary | Summary of Care ---
Author Name Unknown [place] [address] Care Team Providers Care Tearoom Hostess Name Role Phone Farooq Rodríguez DO Primary Care Provider [phone] Reason for Referral * Evaluate & Treat - Unlimited Visits (Within 30 days (routine)) - Pending Review Specialty Diagnoses / Procedures Referred By Contac t Referred To Contact Pain Management / Pain Medicine Diagnoses Arachnoiditis Chronic pain syndrome Farooq Rodríguez, DO [address] [place] [address] Referral ID Status Reason Start Date Expiration Date Visits Requested Visits Authorized [id number] Pending Review Specialty Services Required 12/06/[phone] Question Answer Referral Priority Within 30 days (routine) Reason for referral? Interventional Pain Management - (Injection) What is the preferred location to have this test performed? [facility] Comments Patient Name: Placido Dean Date of : 1960 Department Phone Number: MRI or CT (if unable to have a MRI) is recommended if any of the following apply: 1. Patient has neck or back pain with radiation to extremities. A previous MRI will be accepted if symptoms unchanged since prior MRI. 2. Spinal surgery since last MRI. If yes, order a MRI with and without contrast. 3. Hx or ongoing cancer treatment. Patient will need spine x-ray (Ap/Lat) for axial neck or back pain if not done previously. Fax No. [facility] [phone] or contact senior front end web developer [phone] Fax No. [facility] [phone] or contact senior front end web developer [phone] Fax No. [facility] [phone] or contact senior front end web developer [phone] Reason for Visit * Reason Comments Re-Check Encounter Details Date Type Department Care Team Description 12/06/2022 Office Visit Family Practice [facility] [place] [address] [facility] [place] [address] Farooq Rodríguez DO [address] [facility] [place] [address] Acute low back pain without sciatica, unspecified back pain laterality*; Body mass index (BMI) of 40.0 to 44.9 in adult (HCC); Arachnoiditis; Chronic pain syndrome; Chronic diastolic (congestive) heart failure (HCC); Acquired hypothyroidism Allergies No known active allergiesdocumented as of [...] by mouth in the morning. 0 Active [place]-3 Fatty Acids (OMEGA 3 500) 500 MG [...] 3 02/14/2022 Active Lisinopril 40 MG Oral TabletIndications :HTN, [...] every day 45 Tablet 11 12/06/2022 Active Furosemide 40 MG Oral Tablet (Lasix) Take 1 tablet in the morning. 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 Chief Complaint Patient presents with Re-Check HPI: Pt looking to get a spine stimulator trial. They are looking to get the procedure done in [place]. We discussed finding a way to get this moving. Had seen Dr. Valerio originally in [place]. Cannot stand or sit for too long. He still has a lot of swelling. Trying to do compression as able. No SP or SOB. HAs swelling - will go to 1 and 1/2 every day of the week He did get disability. Will get him a placard. 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 HM VITAMIN D3 2000 UNITS PO CAPS 1 CAPSULE DAILY Mometasone Furo-Formoterol Fum 100-5 MCG/ACT Inhalation Aerosol Inhale 1 Puff by mouth as needed. Multiple Vitamins-Minerals (MENS MULTIPLE VITAMIN/LYCOPENE) TABS Take by mouth daily. vitamin e (AQUASOL E) 400 UNIT Capsule Take 1 Capsule by mouth in the morning. [place]-3 Fatty Acids (OMEGA 3 500) 500 MG [...] Tablet in the morning. 90 Tablet 3 Furosemide 40 MG Oral Tablet (Lasix) Take 1 tablet in the morning. Take an additional 1/2 tablet on Sunday, Sunday, Sunday 45 Tablet 11 Lisinopril 40 MG Oral Tablet Take 1 tablet by mouth once daily 90 Tablet 3 tiZANidine HCl 4 MG [...] by mouth once daily 90 Tablet 0 albuterol (PROAIR HFA) 108 (90 BASE) MCG/ACT inhaler Inhale 2 Puffs by mouth 4 times a day. 1 Inhaler 1 SUMAtriptan (IMITREX) 50 MG Tablet TAKE ONE TABLET BY MOUTH ONE TIME ONLY,REPEAT AFTER TWO HOURS NEEDED MAX OF FOUR TABLETS 12 Tab 0 No current facility-administered medications for this visit. Review of patient's allergies indicates: No Known Allergies OBJECTIVE: BP 130/78 | Pulse 68 | Temp 36.4 C (97.6 F) (Tympanic) | Resp 16 | Ht 1.727 m (5' 8") | Wt 131 kg (288 lb 12.8 oz) | BMI 43.91 kg/m | BSA 2.51 m Estimated body mass index is 43.91 kg/m as calculated from the following: Height as of this encounter: 1.727 m (5' 8"). Weight as of this encounter: 131 kg (288 lb 12.8 oz). BP Readings from Last 3 Encounters: 12/06/22 130/78 11/21/22 132/84 06/27/22 126/64 Wt Readings from Last 3 Encounters: 12/06/22 131 kg (288 lb 12.8 oz) 11/21/22 125.8 kg (277 lb 6.4 oz) 06/27/22 122.4 kg (269 lb 12.8 oz) ROS: Negative except for above PHYSICAL EXAM: General: alert, healthy and no distress Head: Normocephalic, No masses, lesions, tenderness or abnormalities Ext: B/L trace edema ASSESSMENT/Plan Acute low back pain without sciatica, unspecified back pain laterality (Primary) Body mass index (BMI) of 40.0 to 44.9 in adult (HCC) Arachnoiditis - PAIN MEDICINE REFERRAL OP Chronic pain syndrome - PAIN MEDICINE REFERRAL OP Chronic diastolic (congestive) heart failure (HCC) - BASIC METABOLIC PANEL; Future; Expected date: 12/06/2022 Acquired hypothyroidism - TSH WITH FREE T4 IF INDICATED; Future; Expected date: 12/06/2022 Other orders - Furosemide 40 MG Oral Tablet (Lasix); Take 1 and 1/2 tablet every day I spent a total of 30 minutes on the date of service in preparation, delivery, and documentation ofthe care provided to this patient, excluding any time spent on the performance of any procedure or separately billable services. Weight going up and swelling persisting. Will got to 60 mg of lasix daily and check kidney functionin 4 weeks along with TSH It sounds like he needs to go to [place] to be considered for the stimulator trial. Will get him set up to see them unless they can make the procedure happen sooner. The above was discussed and understanding was expressed. Farooq Rodríguez DO documented in this encounter Nursing Notes * Cathie Pruitt LPN - 12/06/2022 1:57 PM EST Chief Complaint Patient presents with Re-Check l documented in this encounter Plan of Treatment Upcoming Encounters Date Type Specialty Care Team Description 05/21/2023 Cardiac Studies Cardiac Studies 05/28/2023 Office Visit Cardiology Kath Carlin PA-C [address] [place] [address] 06/12/2023 Office Visit Family Medicine Farooq Rodríguez, DO [address] [facility] [address] Scheduled Orders Name Type Priority Associated Diagnoses Orde r Schedule TSH WITH FREE T4 IF INDICATED Lab Routine Acquired hypothyroidism Expected: 12/06/2022 (Approximate), Expires: 12/06/2023 BASIC METABOLIC PANEL Lab Routine Chronic diastolic (congestive) heart failure (HCC) Expected: 12/06/2022 (Approximate), Expires: 12/06/2023 Scheduled Procedures Name Priority Associated Diagnoses Date/Ti [...] as of this encounter Visit Diagnoses Diagnosis Acute low back pain without sciatica, unspecified back pain laterality- Primary Body mass index (BMI) of 40.0 to 44.9 in adult (HCC) Arachnoiditis Meningitis, unspecified Chronic pain syndrome Chronic diastolic (congestive) heart failure (HCC) Acquired hypothyroidism Unspecified hypothyroidism documented in this encounter Care Teams Tearoom Hostess Relationship Specialty Start Date End Date Farooq Rodríguez, DO [address] [place] [address] PCP - General Family Medicine 08/22/19 documented as of this encounter
--- OUTSIDE RECORDS SUMMARY | 2023-09-26 01:52 | External Medical Summary | Summary of Care ---
Author Name Unknown Organization [facility] Address [place] [address] Care Team Providers Care Fleet Sales Manager Name Role Phone Farooq Rodríguez Primary Care Provider [phone] Reason for Visit * Reason Onset Date Comments Follow Up 11/23/2022 Encounter Details Date Type Department Care Team Description 11/23/2022 Telephone Interventional Pain Center, [facility] [address] [place] [phone] Gaurang Rodriguez DO [address] [place] [phone] Follow Up Allergies No known active allergiesdocumented as of this encounter (statuses as of 11/23/2022) Medications Medication Sig Dispensed Refills Start Date [...] by mouth in the morning. 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 documented in this encounter Plan of Treatment Upcoming Encounters Date Type Specialty Care Team Description 05/21/2023 Cardiac Studies Cardiac Studies 05/28/2023 Office Visit Cardiology Kath Carlin PA-C [address] [place] [address] Scheduled Procedures Name Priority Associated Diagnoses Date/Ti [...] filedocumented as of this encounter Care Teams Fleet Sales Manager Relationship Specialty Start Date End Date Farooq Rodríguez, DO [address] [facility] [place] [address] PCP - General Family Medicine 08/22/19 documented as of this encounter
--- OUTSIDE RECORDS SUMMARY | 2023-09-26 01:53 | External Medical Summary | Summary of Care ---
Author Name Unknown Organization [facility] [place] [address] Care Team Providers Care Rn Tele Name Role Phone Farooq Rodríguez DO Primary Care Provider [phone] Reason for Referral * Precert (Within 10 days (routine)) - Pending Review Specialty Diagnoses / Procedures Referred By Contac t Referred To Contact Cardiac Studies Diagnoses Chronic diastolic (congestive) heart failure (HCC) Ascending aorta dilatation (HCC) Dilated aortic root (HCC) HTN, goal below 140/90 Procedures ECHO, COMPLETE (2D), TRANS-THORACIC Kath Carlin PA-C [address] [employer] [place] [address] Referral ID Status Reason Start Date Expiration Date Visits Requested Visits Authorized [id number] Pending Review Precert 05/21/2023 999 999 Reason for Visit * Reason Comments Follow Up Encounter Details Date Type Department Care Team Description 11/21/2022 Office Visit Cardiology, [facility] [address] [place] [address] Kath Carlin PA-C [address] [place] [address] Ascending aorta dilatation (HCC)*; Chronic diastolic (congestive) heart failure (HCC); Dilated aortic root (HCC); HTN, goal below 140/90; Dyslipidemia, goal LDL below 100 Allergies No known active allergiesdocumented as of this encounter (statuses as of 11/21/2022) Medications Medication Sig Dispensed Refills Start Date [...] by mouth in the morning. 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 02/10/2021 Pneumonia due to other virus not elsewhere class ified 12/24/2002 04/29/2021 documented as of this encounter (statuses as of 11/21/2022) Immunizations Name Administration Dates Next Due COVID-19 [...] Sign Reading Time Taken Comments Blood Pressure 132/84 11/21/2022 7:59 AM EST Pulse 72 11/21/2022 7:59 AM EST Temperature 35.9 C (96.6 F) 11/21/2022 7:59 AM ES T Respiratory Rate 16 11/21/2022 7:59 AM EST Oxygen Saturation - - Inhaled Oxygen Concentration - - Weight 125.8 kg (277 lb 6.4 oz) 11/21/2022 7:59 AM EST Height - - Body Mass Index 42.18 04/25/2022 7:50 AM EDT documented in this encounter Progress Notes * Kath Carlin PA-C - 11/21/2022 8:03 AM EST 11/21/2022 Cardiology F/U: History of Present Illness: Mr. Dean is a 62 year old male who presents today for routine cardiology follow-up. Last clinic evaluation approximately 6 months ago with the undersigned. 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 F/U echocardiograms demonstrated normal pericardium without pericardial effusion, normal EF, andno significant valvular disease with dilated aortic root measuring 4.7 cm and ascending aortic dilation measuring 4.0 cm. Other history significant for inflammatory pulmonary disease for which he follows with [facility], dyslipidemia, hepatic steatosis, hypertension, obesity, and chronic diastolic HF controlled on low dose furosemide. Due to recurrent atypical chest pain, patient underwent diagnostic cardiac catheterization on March 23, 2021 at [facility] with Dr. Sigala demonstrating normal coronary arteries. He presents today feeling well from cardiac perspective. Blood pressure well controlled. Weight is relatively stable. He is limited in his mobility due to chronic back pain. He may be undergoing future intervention but not yet approved by insurance. He denies acute cardiac complaints. Taking medications as prescribed. No chest pain, shortness of breath, palpitations, dizziness, syncope or near syncope. No orthopnea, PND, or increased lower extremity edema. No fever, chills, cough, hematochezia,melena, or hemoptysis. Review of Systems: See HPI [...] (HCC) I77.810 Chronic diastolic (congestive) heart failure ([facility]) I50.32 Chest pain with normal coronary angiography R07.9 Body mass index (BMI) of 40.0 to 44.9 in adult ([facility]) Z68.41 Social History Tobacco Use Smoking status: Never Smokeless tobacco: Former Types: Chew Quit date: 04/21/2012 Tobacco comments: quit Vaping Use Vaping Use: Never used Substance Use Topics Alcohol use: Yes Alcohol/week: 5.0 standard drinks Types: 6 12 oz of beer per week Drug use: No Family History Problem Relation Age of Onset Dementia Father Other (Other) Brother accident Genitourinary Disorder Father stones Hypertension Father No Past Hx Mother Cancer Grandmother (Paternal) pancreas Other (Other) Grandfather (Paternal) blood poisoning Lung Disorder Grandfather (Maternal) Alcohol and Other Disorders Associated Grandfather (Maternal) No Past Hx Grandmother (Maternal) Past Surgical History: Procedure Laterality Date BRONCHOSCOPY W/ BRONCHIAL BIOPSY 2003 biopsy, open and bronchoscopy COLONOSCOPY, DIAGNOSTIC (RECTUM) 11/29/2012 COLONOSCOPY FLEXIBLE PROXIMAL DIAGNOSTIC performed by Cristy Dobbs DO at ENDOSCOPY [facility] COLONOSCOPY, DIAGNOSTIC (RECTUM) 11/26/2015 diverticulosis, repeat 10 yrs/COLONOSCOPY FLEXIBLE PROXIMAL DIAGNOSTIC performed by Cristy Dobbs DO at ENDOSCOPY [facility] DENTAL SURGERY PROCEDURE NEC Dental Surgery Procedure DRAINAGE OF HEART SAC 2002 [facility] REMOVAL OF WRIST LESION Review of patient's [...] 1 Capsule by mouth in the morning. [place]-3 Fatty Acids (OMEGA 3 500) 500 MG [...] by mouth once daily 90 Tablet 0 No current facility-administered medications for this visit. OBJECTIVE/PHYSICAL EXAMINATION: BP 132/84 | Pulse 72 | Temp 35.9 C (96.6 F) | Resp 16 | Wt 125.8 kg (277 lb 6.4 oz) | BMI 42.18kg/m | BSA 2.46 m BP Readings from Last 4 Encounters: 11/21/22 132/84 06/27/22 126/64 06/06/22 130/78 05/18/22 108/76 Wt Readings from Last 3 Encounters: 11/21/22 125.8 kg (277 lb 6.4 oz) 06/27/22 122.4 kg (269 lb 12.8 oz) 06/06/22 123.1 kg (271 lb 6.4 oz) General: NAD. A&Ox3. Eyes: Conjunctiva are pink and non-injected, sclera clear Neck: No overt JVD. Chest: Normal respiratory effort Lungs: Clear to auscultation Cardiac Exam: RRR. No murmurs, rubs, or gallops Abdomen: Distended. Obese. +BS. Soft. Extremities: 1+ pitting ankle and pretibial edema Neuro: Grossly normal exam Psych: Appropriate affect and insight. DATA: EKG performed April 2022: Normal sinus rhythm [...] report reviewed dated March 23, 2021 at [facility], performed by Dr. Sigala: Coronary angiography: Selective [...] are stable without significant interval change. Outpatient hall monitor report reviewed dated 02/11/21: CONCLUSIONS: Preliminary [...] aortic root sizes have increased slightly Outpatient hall monitor report reviewed dated November 2019: Duration [...] at thattime. Latest Reference Range & Units 01/17/22 11:31 Triglycerides <=174 mg/dL 140 Cholesterol <200 mg/dL 171 Non-HDL Cholesterol <=159 mg/dL 130 HDL Cholesterol >39 mg/dL 41 LDL Cholesterol <=129 mg/dL 102 Latest Reference Range & Units 09/18/22 12:21 Sodium 135 - 146 mmol/L 139 Potassium 3.5 - 5.1 mmol/L 3.6 Chloride 98 - 107 mmol/L 100 CO2 22 - 32 mmol/L 27 BUN 6 - 20 mg/dL 13 Creatinine 0.6 - 1.2 mg/dL 1.1 Estimated Glomerular Filtration Rate >=60 mL/min 81 Anion Gap 7 - 15 mmol/L 12 Glucose 70 - 120 mg/dL 143 (H) Calcium 8.4 - 10.2 mg/dL 9.3 (H): Data is abnormally high IMPRESSION and PLAN: 62 year old male 1. Prior history of chest pain, non cardiac - normal cardiac catheterization 03/23/21 after equivocalstress testing. No recent symptoms. 2. Hypertension - controlled today 3. Bradycardia - asymptomatic. Stable. No significant pauses or bradyarrhythmias on prior monitor. 4. History of prior cardiac tamponade /effusion S/P pericardiocentesis in 2002- No recurrence per serial echocardiograms. Stable cardiovascular signs/symptoms 5. Chronic diastolic HF -appears euvolemic 6. Dyslipidemia - borderline controlled. 7. Obesity - continued weight loss recommended. 8. Dilated aortic root, stable at 4.7 (4.5 by recent echo), ascending aorta measuring 4.0 cm (4.1 cm by recent echo) 9. Paroxysmal SVT, one episode lasting 9 seconds may be PAF, but difficult to determine. No recurrence PLAN: Stable cardiac symptoms. Volume status well controlled. BP controlled. Weight loss encouraged. Lipids trending higher last evaluation. Repeat due spring 2022 and consider titration of atorvastatin. CHF tools discussed including daily weights, salt/sodium/fluid restriction, and use of diuretic protocol. The patient is to continue all current medications as listed above. No changes were made at today'svisit. Repeat echo at 1 year interval given dilated aortic root and ascending aorta. I spent a total of 25 minutes on the date of service in preparation, delivery, and documentation ofthe care provided to Placido Dean excluding any time spent in the performance of separately billed services. The patient agrees to the above plan and will call with additional questions or concerns. ER with all emergencies advised. Follow-up: Return in about 6 months (around 05/21/2023). | Check-out note: Schedule echo in 6 months and f/u after echo in 6 months Kath Carlin PA-C Department of Cardiology This chart was completed in part utilizing [employer] Voice Recognition Software. Grammatical errors, random [...] documented in this encounter Nursing Notes * Adriane Pope LPN - 11/21/2022 7:59 AM EST Pt here for follow up. Denies any cardiovascular c/o documented in this encounter Plan of Treatment Upcoming Encounters Date Type Specialty Care Team Description 05/21/2023 Cardiac Studies Cardiac Studies 05/28/2023 Office Visit Cardiology Kath Carlin PA-C [address] [facility] [place] [address] Scheduled Orders Name Type Priority Associated Diagnoses Orde r Schedule ECHO, COMPLETE (2D), TRANS-THORACIC Echocardiology Routine Chronic diastolic (congestive) heart failure (HCC) Ascending aorta dilatation (HCC) Dilated aortic root (HCC) HTN, goal below 140/90 Expected: 05/21/2023 (Approximate), Expires: 11/21/2023 Scheduled Procedures Name Priority Associated Diagnoses Date/Ti [...] as of this encounter Visit Diagnoses Diagnosis Ascending aorta dilatation (HCC)- Primary Thoracic aortic ectasia Chronic diastolic (congestive) heart failure (HCC) Dilated aortic root (HCC) Thoracic aortic ectasia HTN, goal below 140/90 Unspecified essential hypertension Dyslipidemia, goal LDL below 100 Other and unspecified hyperlipidemia documented in this encounter Care Teams Rn Tele Relationship Specialty Start Date End Date Farooq Rodríguez, [address] [place] [address] PCP - General Family Medicine 08/22/19 documented as of this encounter"
--- OUTSIDE RECORDS SUMMARY | 2023-09-26 01:53 | External Medical Summary | Summary of Care ---
Author Name Unknown Organization [facility] Address [place] [address] Care Team Providers Care Journeyman Electrician Name Role Phone Farooq Rodríguez DO Primary Care Provider [phone] Reason for Visit * Reason Onset Date Comments Medication Refill 11/09/2022 Encounter Details Date Type Department Care Team Description 11/09/2022 Refill Family Practice [facility] [address] [facility] [place] [address] Farooq Rodríguez DO [address] [facility] [place] [address] CAD (coronary artery disease) Allergies No known active allergiesdocumented as of this encounter (statuses as of 11/09/2022) Medications Medication Sig Dispensed Refills Start Date [...] Tab 0 12/24/2015 Active Mometasone Furo-Formoterol Fum (DULERA) 100-5 MCG/ACT Inhaler Inhale 1 Puff by mouth as needed. 0 08/03/2016 Active Multiple Vitamins-Minerals (MENS MULTIPLE VITAMIN/LYCOPENE) TABS Take by mouth daily. 0 Active vitamin e (AQUASOL E) 400 UNIT Capsule Take 400 Units by mouth daily. 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 Pneumonia due to other virus not elsewhere class ified 12/24/2002 04/29/2021 documented as of this encounter (statuses as of 11/09/2022) Immunizations Name Administration Dates Next Due COVID-19 [...] encounter Miscellaneous Notes * Telephone Encounter - Lynn Padron LPN - 11/09/2022 3:30 PM ESTRefused Prescriptions: Disp Refills Spironolactone 25 MG Oral Tablet ([place]*90 Tab*0 Sig: Take 1Tablet by mouth in the morning.Refused By: Sunil PADRON for Refusal: Duplicate Request Atorvastatin Calcium 40 MG Oral Tablet (Li*90 Tab*0 Sig: Take 1 Tablet by mouth in the morning.Refused By: Sunli PADRON for Refusal: Duplicate Request * Telephone Encounter - Lynn Padron LPN - 11/09/2022 3:30 PM EST Duplicate request. documented in this encounter Plan of Treatment Upcoming Encounters Date Type Specialty Care Team Description 11/21/2022 Office Visit Cardiology Kath Carlin PA-C [address] [facility] [place] [address] Scheduled Procedures Name Priority Associated Diagnoses Date/Ti [...] Coronary atherosclerosis of unspecified type of vessel, [place] or graft documented in this encounter Care Teams Journeyman Electrician Relationship Specialty Start Date End Date Farooq Rodríguez, DO [address] [place] [address] PCP - General Family Medicine 08/22/19 documented as of this encounter
--- OUTSIDE RECORDS SUMMARY | 2023-09-26 01:53 | External Medical Summary | Summary of Care ---
Author Name Unknown Organization [place] [address] Care Team Providers Care Graining Press Operator Name Role Phone Farooq Rodríguez Primary Care Provider [phone] Reason for Visit * Reason Onset Date Comments Advice 11/21/2022 Encounter Details Date Type Department Care Team Description 11/21/2022 Telephone [facility] [place] [address] [place] [address] Specified, Z No Resource [address] [place] [address] Advice Allergies No known active allergiesdocumented as [...] by mouth in the morning. 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 Patient and his Bev called in wanting to speak with Dr. Valerio's team regarding questions about if Dr. Valerio would be willing to do his surgery instead of the doctor at [place]. She asked that someone give her a call back at [phone] to discuss options. documented in this encounter Plan of Treatment Upcoming Encounters Date Type Specialty Care Team Description 05/21/2023 Cardiac Studies Cardiac Studies 05/28/2023 Office Visit Cardiology Kath Carlin PA-C [address] [facility] [place] [address] Scheduled Procedures Name Priority Associated Diagnoses Date/Ti [...] filedocumented as of this encounter Care Teams Graining Press Operator Relationship Specialty Start Date End Date Farooq Rodríguez, DO [address] [place] [address] PCP - General Family Medicine 08/22/19 documented as of this encounter
--- OUTSIDE RECORDS SUMMARY | 2023-09-26 01:53 | External Medical Summary | Summary of Care ---
Author Name Unknown Organization [place] [address] Care Team Providers Care Rubber Molder Name Role Phone Kelly Mitchell DO Primary Care Provider [phone] Reason for Visit * Reason Comments eRx-Medication Refill Encounter Details Date Type Department Care Team Description 10/15/2022 Refill Family Practice [facility] [address] [facility] [place] [address] Kelly Mitchell DO [address] [facility] [place] [address] Migraine variant Allergies No known active allergiesdocumented as of this encounter (statuses as of 10/17/2022) Medications Medication Sig Dispensed Refills Start Date [...] 400 Units by mouth daily. 0 Active [place]-3 Fatty Acids (OMEGA 3 500) 500 MG [...] the morning. 90 Tablet 3 02/14/2022 Active Atorvastatin Calcium 40 MG Oral Tablet (Lipitor)Indicati ons:CAD (coronary artery disease) Take 1 tablet by mouth once daily 90 Tablet 1 05/09/2022 Active Spironolactone 25 MG Oral Tablet (Aldactone) TAKE 1 TABLET BY MOUTH ONCE DAILY IN THE MORNING 90 Tablet 1 05/09/2022 Active Furosemide 40 MG Oral Tablet (Lasix) Take 1 tablet in the morning. Take an additional 1/2 tablet on Sunday, Sunday, Sunday 45 Tablet 11 05/18/2022 Active Lisinopril 40 MG Oral TabletIndications :HTN, [...] AT BEDTIME 90 Tablet 1 10/17/2022 Active Amitriptyline HCl 25 MG Oral Tablet (Elavil)Indicatio ns:Migraine variant TAKE 1 TABLET BY MOUTH AT BEDTIME 90 Tablet 1 04/10/2022 Discontinued documented as of this encounter (statuses as of 10/17/2022) Active Problems Problem Noted Date Body mass [...] as of this encounter (statuses as of 10/17/2022) Resolved Problems Problem Noted Date Resolved Date Encounter for surveillance of abnormal nevi 03/2004/29/2021 Dyslipidemia, goal LDL below 100 06/01/2014 12/08/2015 Hypoactive thyroid 01/07/2013 12/11/2016 Bronchiectasis 04/18/2003 06/12/2017 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 Pneumonia due to other virus not elsewhere class ified 12/24/2002 04/29/2021 documented as of this encounter (statuses as of 10/17/2022) Immunizations Name Administration Dates Next Due COVID-19 [...] encounter Miscellaneous Notes * Telephone Encounter - Quinten Kraus [facility] - 10/17/2022 9:13 AM ESTSigned Prescriptions: Disp Refills Amitriptyline HCl 25 MG Oral Tablet (Elavi*90 Tab*1 Sig: TAKE 1 TABLET BY MOUTH AT BEDTIMEAuthorizing Provider: KELLY MITCHELL User: QUINTEN KRAUS------- documented in this encounter Plan of Treatment Upcoming Encounters Date Type Specialty Care Team Description 11/21/2022 Office Visit Cardiology Kath Carlin PA-C [address] [place] [address] Scheduled Procedures Name Priority Associated Diagnoses Date/Ti me COLONOSCOPY FLEXIBLE PROXIMA L DIAGNOSTIC Recall Encounter for screening colonoscopy Health Maintenance Due Date Last Done Comments Hepatitis B (1 of 3 - 3-dose series) 1962 Alb / Creat Ratio 1980 Cologuard: Ages [...] migrainosus documented in this encounter Care Teams Rubber Molder Relationship Specialty Start Date End Date Kelly Mitchell, DO [address] [facility] [place] [address] PCP - General Family Medicine 08/22/19 documented as of this encounter
--- OUTSIDE RECORDS SUMMARY | 2023-09-26 01:53 | External Medical Summary | Summary of Care ---
Author Name Unknown Organization [place] [address] Care Team Providers Care Mold Engraver Name Role Phone Farooq Rodríguez Primary Care Provider [phone] Reason for Visit * Reason Onset Date Comments Advice 11/21/2022 Encounter Details Date Type Department Care Team Description 11/21/2022 Telephone [facility] [place] [address] [place] [address] Specified, Z No Resource [address] [place] [address] Advice Allergies No known active allergiesdocumented as [...] by mouth in the morning. 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 She asked that someone give her a call back at [phone] to discuss options. documented in this encounter Plan of Treatment Upcoming Encounters Date Type Specialty Care Team Description 05/21/2023 Cardiac Studies Cardiac Studies 05/28/2023 Office Visit Cardiology Kath Carlin PA-C [address] [facility] [place] [address] Scheduled Procedures Name Priority Associated Diagnoses Date/Ti [...] filedocumented as of this encounter Care Teams Mold Engraver Relationship Specialty Start Date End Date Farooq Rodríguez, DO [address] [place] [address] PCP - General Family Medicine 08/22/19 documented as of this encounter
--- OUTSIDE RECORDS SUMMARY | 2023-09-26 01:54 | External Medical Summary | Summary of Care ---
Author Name Unknown Organization [facility] [place] [address] Care Team Providers Care Chemical Research Technician Name Role Phone Farooq Rodríguez Primary Care Provider [phone] Reason for Visit * Reason Comments Knee Pain 2 Encounter Details Date Type Department Care Team Description 09/26/2022 Office Visit Orthopaedics [facility] [address] [place] [address] Nima Cox DO [address] [facility] [place] [address] Primary osteoarthritis of both knees* Allergies No known active allergiesdocumented as of this encounter (statuses as of 09/26/2022) Medications Medication Sig Dispensed Refills Start Date [...] 400 Units by mouth daily. 0 Active Henning-3 Fatty Acids (OMEGA 3 500) 500 MG [...] the morning. 90 Tablet 3 02/14/2022 Active Amitriptyline HCl 25 MG Oral Tablet (Elavil)Indications :Migraine variant TAKE 1 TABLET BY MOUTH AT BEDTIME 90 Tablet 1 04/10/2022 Active Potassium Chloride ER 10 MEQ Oral Tablet Extended ReleaseIndications: HTN, goal below 140/90 Take 1 tablet by mouth once daily 90 Tablet 1 04/10/2022 Active Atorvastatin Calcium 40 MG Oral Tablet [...] after 11/01. 30 Tablet 11 09/20/2022 Active Hospital, Clinic, or Other Facility Administered Medication Ordered Dose Route Frequency Start Date End Date Status sodium hyaluronate (Gelsyn-3) 16.8 MG/2ML inj 16.8 mgIndications:Primary osteoarthritis of both knees 16.8 mg IX ONCE 09/26/2022 09/26/2022 Ended sodium hyaluronate (Gelsyn-3) 16.8 MG/2ML inj 16.8 mgIndications:Primary osteoarthritis of both knees 16.8 mg IX ONCE 09/26/2022 09/26/2022 Ended documented as of this encounter (statuses as of 09/26/2022) Active Problems Problem Noted Date Body mass [...] as of this encounter (statuses as of 09/26/2022) Resolved Problems Problem Noted Date Resolved Date Encounter for surveillance of abnormal nevi 03/2004/29/2021 Dyslipidemia, goal LDL below 100 06/01/2014 12/08/2015 Hypoactive thyroid 01/07/2013 12/11/2016 Bronchiectasis 04/18/2003 06/12/2017 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 Pneumonia due to other virus not elsewhere class ified 12/24/2002 04/29/2021 documented as of this encounter (statuses as of 09/26/2022) Immunizations Name Administration Dates Next Due COVID-19 [...] of this encounter Progress Notes * Nima Cox DO - 09/26/2022 11:15 AM EST Placido Dean [id number] Placido Dean is a 62 year old male who presents for f/u to [facility] for b/l knee Gelsyn #2 ROS EXAM:Constitional: No change in weight, No weakness, No fatigue and No fevers, sweats, or chills Current Outpatient Medications Medication Sig Dispense Refill [...] TABLETS 12 Tab 0 Mometasone Furo-Formoterol Fum (DULERA) 100-5 MCG/ACT Inhaler Inhale 1 Puff by mouth as needed. Multiple Vitamins-Minerals (MENS MULTIPLE VITAMIN/LYCOPENE) TABS Take by mouth daily. vitamin e (AQUASOL E) 400 UNIT Capsule Take 400 Units by mouth daily. Henning-3 Fatty Acids (OMEGA 3 500) 500 MG [...] Tablet in the morning. 90 Tablet 3 Amitriptyline HCl 25 MG Oral Tablet (Elavil) TAKE 1 TABLET BY MOUTH AT BEDTIME 90 Tablet 1 Potassium Chloride ER 10 MEQ Oral Tablet Extended Release Take 1 tablet by mouth once daily 90 Tablet 1 Atorvastatin Calcium 40 MG Oral Tablet (Lipitor) Take 1 tablet by mouth once daily 90 Tablet 1 Spironolactone 25 MG Oral Tablet (Aldactone) TAKE 1 TABLET BY MOUTH ONCE DAILY IN THE MORNING 90 Tablet 1 Furosemide 40 MG Oral Tablet (Lasix) Take [...] Repeat labs after 11/01. 30 Tablet 11 No current facility-administered medications for this visit. Physical Exam General: in no acute distress Mood and Affect: normal Gait and Station: mildly antalgic Assessment and Plan: Will do injection, see procedure note, f/u next week for Gelsyn #3 Primary osteoarthritis of both knees (Primary) - sodium hyaluronate (Gelsyn-3) 16.8 MG/2ML inj 16.8 mg - sodium hyaluronate (Gelsyn-3) 16.8 MG/2ML inj 16.8 mg - INJECT MAJOR JX/BURSA W/O US GUIDE Nima Cox DO Primary Care Sports Medicine Orthopaedics [address] [address] Procedure note (knee injection), Blateral Time out: Prior to injection, a time out was called to confirm the administration of appropriate medicine, patient name, procedure and confirm to the best of our ability and knowledge the presence of any necessary risks and benefits. Patient verbalizes understanding. proper approach defined Sterile techinique applied. Skin sterilized with alcohol swab. Knee injected using 1.5 inch, 21 gauge needle. Injected with Gelsyn Patient tolerated procedure with no significant bleeding or [...] documented in this encounter Nursing Notes * Mary Boswell LPN - 09/26/2022 11:10 AM EST Left knee 2nd Gelsyn. Mary C BACK TACKER documented in this encounter Plan of Treatment Upcoming Encounters Date Type Specialty Care Team Description 10/03/2022 Office Visit Orthopedics Nima Cox, DO [address] [place] [address] 10/04/2022 Telemedicine Pain Medicine Gaurang Rodriguez, DO [address] [place] [phone] 11/21/2022 Office Visit Cardiology Kath Carlin PA-C [address] [place] [address] Scheduled Orders Name Type Priority Associated Diagnoses Orde r Schedule INJECT MAJOR JX/BURSA W/O US GUIDE Procedures Routine Primary osteoarthritis of both knees Ordered: 09/26/2022 Scheduled Procedures Name Priority Associated Diagnoses Date/Ti [...] encounter Visit Diagnoses Diagnosis Primary osteoarthritis of both knees- Primary Primary localized osteoarthrosis, lower leg documented in this encounter Administered Medications Inactive Administered Medications - up to 3 most recent administrations Medication Order MAR Action Action Date Dose Rate Site sodium hyaluronate (Gelsyn-3) 16.8 MG/2ML inj 16.8 mg 16.8 mg, Intra-Articular, ONCE, On Sun09/26/22 at 1145, For 1 dose Given 09/26/2022 2:07 PM EST 16.8 mg K nee Right sodium hyaluronate (Gelsyn-3) 16.8 MG/2ML inj 16.8 mg 16.8 mg, Intra-Articular, ONCE, On Sun09/26/22 at 1145, For 1 dose Given 09/26/2022 2:06 PM EST 16.8 mg K nee Left documented in this encounter Care Teams Chemical Research Technician Relationship Specialty Start Date End Date Farooq Rodríguez, DO [address] [place] [address] PCP - General Family Medicine 08/22/19 documented as of this encounter
--- OUTSIDE RECORDS SUMMARY | 2023-09-26 01:54 | External Medical Summary | Summary of Care ---
Author Name Unknown Organization [facility] Address [place] [address] Care Team Providers Care Clean Energy Policy Analyst Name Role Phone Farooq Rodríguez Primary Care Provider [phone] Reason for Visit * Reason Comments Knee Pain Bilateral 3rd Gelsyn injections. Encounter Details Date Type Department Care Team Description 10/03/2022 Office Visit Orthopaedics [facility] 132 [facility] [place] [address] Nima Cox DO 132 [facility] [place] [address] Primary osteoarthritis of both knees* Allergies No known active allergiesdocumented as of this encounter (statuses as of 10/03/2022) Medications Medication Sig Dispensed Refills Start Date End Date Status ASPIRIN 81 MG PO TABS One daily 0 Active ZYRTEC ALLERGY 10 MG PO TABS one daily 0 Active ALBUTEROL SULFATE (2.5 MG/3ML) 0.083[facility] Inhale via nebulizer . 0 Active HM [...] 400 Units by mouth daily. 0 Active [place]-3 Fatty Acids (OMEGA 3 500) 500 MG [...] of both knees 16.8 mg IX ONCE 10/03/2022 10/03/2022 Ended sodium hyaluronate (Gelsyn-3) 16.8 MG/2ML inj 16.8 mgIndications:Primary osteoarthritis of both knees 16.8 mg IX ONCE 10/03/2022 10/03/2022 Ended documented as of this encounter (statuses as of 10/03/2022) Active Problems Problem Noted Date Body mass [...] as of this encounter (statuses as of 10/03/2022) Resolved Problems Problem Noted Date Resolved Date Encounter for surveillance of abnormal nevi 03/2004/29/2021 Dyslipidemia, goal LDL below 100 06/01/2014 12/08/2015 Hypoactive thyroid 01/07/2013 12/11/2016 Bronchiectasis 04/18/2003 06/12/2017 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 Van-3 Fatty Acids (OMEGA 3 500) 500 MG [...] Will do injection, see procedure note, f/u my chart or call in 2-4 weeks,then PRN Primary osteoarthritis of both knees (Primary) - sodium hyaluronate (Gelsyn-3) 16.8 MG/2ML inj 16.8 mg - sodium hyaluronate (Gelsyn-3) 16.8 MG/2ML inj 16.8 mg - INJECT MAJOR JX/BURSA W/O US GUIDE Nima Cox DO Primary Care Sports Medicine Orthopaedics [address] [address] Procedure note (knee injection), Blateral Time out: [...] Nursing Notes * Mary Boswell LPN - 10/03/2022 12:00 PM EST Follow up Patient Follow up: Knee Side: Bilateral Date of last visit: 09/26/22 Improvement since last office visit: 70 percent. Prior Treatment: injections Here for Test Results: no Goals for this appointment: Another injection. Mary mcpherson LPN documented in this encounter Plan of Treatment Upcoming Encounters Date Type Specialty Care Team Description 10/04/2022 Telemedicine Pain Medicine Gaurang Rodriguez DO [address] [place] [phone] 11/21/2022 Office Visit Cardiology Kath Carlin PA-C [address] [place] [address] Scheduled Orders Name Type Priority Associated Diagnoses Orde r Schedule INJECT MAJOR JX/BURSA W/O US GUIDE Procedures Routine Primary osteoarthritis of both knees Ordered: 10/03/2022 Scheduled Procedures Name Priority Associated Diagnoses Date/Ti [...] 16.8 mg 16.8 mg, Intra-Articular, ONCE, On Sun10/03/22 at 1300, For 1 dose Given 10/03/2022 12:25 PM EST 16.8 mg Knee Right sodium hyaluronate (Gelsyn-3) 16.8 MG/2ML inj 16.8 mg 16.8 mg, Intra-Articular, ONCE, On Sun10/03/22 at 1300, For 1 dose Given 10/03/2022 12:25 PM EST 16.8 mg Knee Left documented in this encounter Care Teams Clean Energy Policy Analyst Relationship Specialty Start Date End Date Farooq Rodríguez, DO [address] [place] [address] PCP - General Family Medicine 08/22/19 documented as of this encounter
--- OUTSIDE RECORDS SUMMARY | 2023-09-26 01:54 | External Medical Summary | Summary of Care ---
Author Name Unknown Organization [place] [address] Care Team Providers Care Twister In Name Role Phone Kelly Mitchell DO Primary Care Provider [phone] Reason for Visit * Reason Comments eRx-Medication Refill Encounter Details Date Type Department Care Team Description 10/02/2022 Refill Family Practice [facility] [address] [place] [address] Kelly Mitchell DO [address] [facility] [place] [address] HTN, goal below 140/90 Allergies No known active allergiesdocumented as of this encounter (statuses as of 10/04/2022) Medications Medication Sig Dispensed Refills Start Date [...] 400 Units by mouth daily. 0 Active Albert-3 Fatty Acids (OMEGA 3 500) 500 MG [...] AT BEDTIME 90 Tablet 1 04/10/2022 Active Atorvastatin Calcium [...] once daily 90 Tablet 1 10/04/2022 Active Potassium Chloride ER 10 MEQ Oral Tablet Extended ReleaseIndication s:HTN, goal below 140/90 Take 1 tablet by mouth once daily 90 Tablet 1 04/10/2022 Discontinued documented as of this encounter (statuses as of 10/04/2022) Active Problems Problem Noted Date Body mass [...] as of this encounter (statuses as of 10/04/2022) Resolved Problems Problem Noted Date Resolved Date Encounter for surveillance of abnormal nevi 03/2004/29/2021 Dyslipidemia, goal LDL below 100 06/01/2014 12/08/2015 Hypoactive thyroid 01/07/2013 12/11/2016 Bronchiectasis 04/18/2003 06/12/2017 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 Pneumonia due to other virus not elsewhere class ified 12/24/2002 04/29/2021 documented as of this encounter (statuses as of 10/04/2022) Immunizations Name Administration Dates Next Due COVID-19 [...] encounter Miscellaneous Notes * Telephone Encounter - lBossom [place], [facility] - 10/04/2022 5:02 AM ESTSigned Prescriptions: Disp Refills Potassium Chloride ER 10 MEQ Oral Tablet E*90 Tab*1 Sig: Take 1 tablet by mouth once dailyAuthorizing Provider: KELLY MITCHELL User: BLOSSOM MADRID documented in this encounter Plan of Treatment Upcoming Encounters Date Type Specialty Care Team Description 10/04/2022 Telemedicine Pain Medicine Gaurang Rodriguez DO [address] [place] [phone] 11/21/2022 Office Visit Cardiology Kath Carlin PA-C [address] [place] [address] Scheduled Procedures Name Priority Associated Diagnoses Date/Ti [...] Additional history exists Colonoscopy: Ages 45-75 11/26/2025 11/26/19, 11/26/2015, 11/29/2012, Additional history exists Colorectal Cancer [...] hypertension documented in this encounter Care Teams Twister In Relationship Specialty Start Date End Date Kelly Mitchell, DO [address] [place] [address] PCP - General Family Medicine 08/22/19 documented as of this encounter
--- OUTSIDE RECORDS SUMMARY | 2023-09-26 01:54 | External Medical Summary | Summary of Care ---
Author Name Unknown Organization [facility] Address [place] [address] Care Team Providers Care Net Software Engineer Name Role Phone Farooq Rodríguez Primary Care Provider [phone] Reason for Visit * Reason Comments Knee Pain Bilateral 3rd Gelsyn injections. Encounter Details Date Type Department Care Team Description 10/03/2022 Office Visit [facility]opaedics [facility] 132 [facility] [place] [address] Nima Cox DO 132 [facility] [place] [address] Primary osteoarthritis of both knees* Allergies No known active allergiesdocumented as of this encounter (statuses as of 10/03/2022) Medications Medication Sig Dispensed Refills Start Date End Date Status ASPIRIN 81 MG PO TABS One daily 0 Active ZYRTEC ALLERGY 10 MG PO TABS one daily 0 Active ALBUTEROL SULFATE (2.5 MG/3ML) 0.083% [facility] Inhale via nebulizer . 0 Active [...] 400 Units by mouth daily. 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 Medicine for b/l knee Gelsyn #3 [...] Capsule Take 400 Units by mouth daily. Columbia-3 Fatty Acids (OMEGA 3 500) 500 MG [...] Cox DO Primary Care Sports Medicine Orthopaedics [address] [address] Procedure note (knee injection), Blateral Time out: [...] Gaurang Rodriguez DO [address] [place] [phone] 11/21/2022 Office Visit Cardiology Kath Carlin PA-C [address] [place] [address] Scheduled Orders Name Type Priority Associated Diagnoses [...] Left documented in this encounter Care Teams Net Software Engineer Relationship Specialty Start Date End Date Farooq Rodríguez, DO [address] [place] [address] PCP - General Family Medicine 08/22/19 documented as of this encounter
--- OUTSIDE RECORDS SUMMARY | 2023-09-26 01:54 | External Medical Summary | Summary of Care ---
Author Name Unknown Organization [facility] Address [place] [address] Care Team Providers Care Activities Coordinator Name Role Phone Farooq Rodríguez Primary Care Provider [phone] Encounter Details Date Type Department Care Team Description 10/04/2022 Telemedicine [facility], [facility] [address] [place] [phone] Gaurang Rodriguez DO 132 [facility] [place] [phone] Chronic radicular lumbar pain*; Arachnoiditis; Chronic pain syndrome Allergies No known active allergiesdocumented as of this encounter (statuses as of 10/04/2022) Medications Medication Sig Dispensed Refills Start Date End Date Status ASPIRIN 81 MG PO TABS One daily 0 Active ZYRTEC ALLERGY 10 MG PO TABS one daily 0 Active ALBUTEROL SULFATE (2.5 MG/3ML) 0.083% IN [facility] Inhale via nebulizer . 0 Active HM [...] 400 Units by mouth daily. 0 Active S[place]-3 Fatty Acids (OMEGA 3 500) 500 MG [...] once daily 90 Tablet 1 10/04/2022 Active documented as of this encounter (statuses [...] as of this encounter Progress Notes * Gaurang Rodriguez, DO - 10/04/2022 10:55 AM EST Interventional Pain Follow-up Appointment After connecting to the patient via telephone, the patient was identified by name and date of . Patient was then informed that this was a telephone call only visit. The patient agreed to participate. Total call duration was 18 minutes. Subjective: Chief Complaint: Lower back and leg pain History of Present Illness: Placido Dean is a 62 year old year-old male with a past medical history significant for arachnoiditis, lumbosacral radiculopathy who is here for a follow-up appointment regarding his recent thoracic MRI ordered as a pre-SCS evaluation. H Continues to report his typical radicular pain pattern wherein he has lower back pain that radiatesoutward and inferiorly into his bilateral lower extremities. He describes that the pain traverses his buttock region, posterolateral thighs and then passes into his posterior lower legs. "Now and then" it can involve his feet. He does point out that he does experience swelling of the feet as well. T he pain started getting worse about 9 months ago but has been going on "for years". Aggravating factors include: walking, sitting for prolonged periods of time. Alleviating factors include: laying down. The pain is present nearly constantly. His current pain score is 3/10. His average pain score is3 / 10. His pain at its least is 3 / 10. His worst pain is 5 / 10. Denies weakness. Reports numbness of the feet. Denies bowel or bladder incontinence. Denies symptoms of saddle anesthesia. Denies fevers/chills/night sweats. Denies unintentional weight loss. Review of Systems: A focused 12-pt ROS were of reviewed with the patient including difficulty with sleep, snoring, aspiration history, dysphagia, stomach pain, nausea and vomiting, severe headaches, confusion, open skin lesions or wounds, chest pain, shortness of breath, excessive thirst, somnolence, dysuria, incomplete bladder emptying, easy bruising, recent clotting problems or bleeding, depression or rushed thoughts unless noted previously. Allergies, Medications, Past Medical History, Past Surgical History reviewed and documented in [facility]. See detailed report if needed. Pertinent Labs/Test Results: No components found for: PLTS, INR No results found for: CREATININE Hemoglobin A1C (%) Date Value 05/30/2022 5.3 No results found for: AMPHETAMINE, BARBITURATES, BENZODIAZEPINES, BUPRENORPHINE, METHADONE, OPIATES, OXYCODONE, PHENCYCLIDINE, CANNABINOIDS, TOX SCREEN, TOX SCREEN-SERUM Imaging: MRI T SPINE WO CONTRAST Narrative: EXAM: MRI T SPINE WO CONTRAST 09/23/2022 HISTORY: pre-op SCS trial/placement TECHNIQUE: Multiplanar multisequence magnetic resonance imaging of the thoracic spine was performed without intravenous contrast. COMPARISON: CT chest 01/11/2021, MRI lumbar spine 04/13/2022 FINDINGS: The study is partially motion degraded. [...] cord is normal in morphology and signal. Impression: IMPRESSION: Motion degraded study. 1. No acute osseous abnormality of the thoracic spine. 2. Dorsal epidural lipomatosis without significant canal or foraminal stenosis on a degenerative basis. Objective Physical Exam: Vital Signs: There were no vitals taken for this visit. There is no height or weight on file to calculate BMI. General: No apparent distress. Telephonic. Assessment: Placido is a 62 year old year-old male with: Chronic radicular lumbar pain (Primary) Arachnoiditis Chronic pain syndrome Plan: Spent approximately 10 minutes reviewing the MRI. Pt has continuous epidural connective tissue/fat with lipomatosis. Will allow for good passage of epidural lead. Reviewed psychology clearance, rated him as a good candidate for SCS trial. Spent an additional 10 minutes reviewing the process of SCS trial placement. Pt to discontinue ASA x 7 days prior to the procedure and during trial, received clearance from PCP for this. Pt will require anesthesia/MAC for this procedure. Pt will require being booked in OR. Pt likely will be planned for referral back to [facility] per preference and at request of [facility] surgeon for permanent placement, if trial is successful. Patient good candidate for SCS trial, will proceed with scheduling. Medical Decision Making I spent 25 minutes reviewing the patient's prior visit office notes, procedure notes, images, conducting the history and physical examination, formulating a care plan, considering interventional options, drafting orders and medication prescriptions as well as recording the medical documentation. Gaurang Rodriguez DO Interventional Pain Center, [address] [address] documented in this encounter Plan of Treatment Upcoming Encounters Date Type Specialty Care Team Description 11/21/2022 Office Visit Cardiology Kath Carlin PA-C [address] [facility] [place] [address] Scheduled Orders Name Type Priority Associated Diagnoses Orde r Schedule IMPLANT EPIDURAL NEUROELECTRODES Procedures Routine Chronic radicular lumbar pain Arachnoiditis Chronic pain syndrome Expected: 10/05/2022, Expires: 01/04/2023 Scheduled Procedures Name Priority Associated Diagnoses Date/Ti [...] of this encounter Visit Diagnoses Diagnosis Chronic radicular lumbar pain- Primary Thoracic or lumbosacral neuritis or radiculitis, unspecified Arachnoiditis Meningitis, unspecified Chronic pain syndrome documented in this encounter Care Teams Activities Coordinator Relationship Specialty Start Date End Date Farooq Rodríguez, DO [address] [place] [address] PCP - General Family Medicine 08/22/19 documented as of this encounter
--- OUTSIDE RECORDS SUMMARY | 2023-09-26 01:55 | External Medical Summary | Summary of Care ---
Author Name Unknown Organization [facility] Address [place] [address] Care Team Providers Care Flatwork Finisher Name Role Phone Farooq Rodríguez Primary Care Provider [phone] Reason for Visit * Reason Comments Knee Pain 2 Encounter Details Date Type Department Care Team Description 09/26/2022 Office Visit Orthopaedics [facility] [address] [facility] [place] [address] Nima Cox DO [address] [facility] [place] [address] Primary osteoarthritis of both knees* Allergies No [...] 400 Units by mouth daily. 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 [place]-3 Fatty Acids (OMEGA 3 500) 500 MG [...] Cox DO Primary [facility] Sports Medicine Orthopaedics [address] [address] Procedure note (knee injection), Blateral Time out: [...] AM EST Left knee 2nd Gelsyn. Mary Roblero LPN documented in this encounter Plan of Treatment Upcoming Encounters Date Type Specialty Care Team Description 10/03/2022 Office Visit Orthopedics Nima Cox, DO [address] [place] [address] 10/04/2022 Telemedicine Pain Medicine Michael Gaurang Shook, DO [address] [place] [phone] 11/21/2022 Office Visit Cardiology Kath Carlin PA-C [address] [place] [address] Scheduled Orders Name Type Priority Associated Diagnoses [...] osteoarthrosis, lower leg documented in this encounter Care Teams Flatwork Finisher Relationship Specialty Start Date End Date Farooq Rodríguez, DO [address] [place] [address] PCP - General Family Medicine 08/22/19 documented as of this encounter
--- OUTSIDE RECORDS SUMMARY | 2023-09-26 01:55 | External Medical Summary | Summary of Care ---
Author Name Unknown Organization [facility] Address [place] [address] Care Team Providers Care Publications Writer Name Role Phone Farooq Rodríguez DO Primary Care Provider [phone] Reason for Visit * Reason Comments Outpatient Testing Encounter Details Date Type Department Care Team Description 09/18/2022 [facility] [address] [facility] [address] Pre-op testing; Hypothyroidism; Elevated ALT measurement Allergies No known active allergiesdocumented as of this encounter (statuses as of 09/18/2022) Medications Medication Sig Dispensed Refills Start Date [...] 400 Units by mouth daily. 0 Active [place]-3 Fatty Acids (OMEGA 3 500) 500 MG [...] once daily 90 Tablet 3 07/04/2022 Active Levothyroxine Sodium 100 MCG Oral TabletIndications:H ypothyroidism TAKE 1 TABLET BY MOUTH IN THE MORNING AT LEAST 30 MINUTES PRIOR TO BREAKFAST OR OTHER MEDS 90 Tablet 3 07/25/2022 Active tiZANidine HCl 4 MG Oral Tablet (Zanaflex)Indicatio ns:Acute low back pain without sciatica, unspecified back pain laterality TAKE 1 TABLET BY MOUTH EVERY 6 HOURS NEEDED FOR MUSCLE SPASM 30 Tablet 5 09/01/2022 Active Hospital, Clinic, or Other Facility Administered Medication Ordered Dose Route Frequency Start Date End Date Status sodium hyaluronate (Gelsyn-3) 16.8 MG/2ML inj 16.8 mgIndications:Primary osteoarthritis of both knees 16.8 mg IX ONCE 09/18/2022 09/18/2022 Ended sodium hyaluronate (Gelsyn-3) 16.8 MG/2ML inj 16.8 mgIndications:Primary osteoarthritis of both knees 16.8 mg IX ONCE 09/18/2022 09/18/2022 Ended documented as of this encounter (statuses as of 09/18/2022) Active Problems Problem Noted Date Body mass [...] as of this encounter (statuses as of 09/18/2022) Resolved Problems Problem Noted Date Resolved Date Encounter for surveillance of abnormal nevi 03/2004/29/2021 Dyslipidemia, goal LDL below 100 06/01/2014 12/08/2015 Hypoactive thyroid 01/07/2013 12/11/2016 Bronchiectasis 04/18/2003 06/12/2017 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 02/10/2021 Pneumonia due to other virus not elsewhere class ified 12/24/2002 04/29/2021 documented as of this encounter (statuses as of 09/18/2022) Immunizations Name Administration Dates Next Due COVID-19 [...] Tobacco Use Types Packs/Day Years Used Date Never Smoker Smokeless Tobacco: Former User Chew Quit: 04/21/2012 Comments:quit Alcohol Use Standard Drinks/Week Comments Yes 5 (1 standard drink = 0.6 oz pur e alcohol) Sex Assigned at Date Recorded Not on file Job Start Date Occupation Industry Not on file Not on file Not on file documented as of this encounter Plan of Treatment Upcoming Encounters Date Type Specialty Care Team Description 09/20/2022 Office Visit Pain Medicine Gaurang Rodriguez, DO [address] [place] [phone] 09/26/2022 Office Visit Orthopedics Nima Cox, DO [address] [place] [address] 10/03/2022 Office Visit Orthopedics Nima Cox, DO [address] [place] [address] 11/21/2022 Office Visit Cardiology Kath Carlin PA-C [address] [place] [address] Pending Results Name Type Priority Associated Diagnoses Date /Time CBC WITH WBC DIFFERENTIAL Lab Routine Pre-op testing 09/18/2022 12:21 PM EDT COMPREHENSIVE METABOLIC PANEL Lab Routine Pre-op testing 09/18/2022 12:21 PM EDT PT INR Lab STAT Pre-op testing 09/18/2022 12:21 PM EDT CBC Lab Routine Pre-op testing 09/18/2022 12:21 PM EDT DIFFERENTIAL, AUTOMATED Lab Routine Pre-op testing 09/18/2022 12:21 PM EDT TSH Lab Routine Hypothyroidism 09/18/2022 12:21 PM EDT T4, FREE Lab Routine Hypothyroidism 09/18/2022 12:21 PM EDT HEPATIC FUNCTION PANEL Lab Routine Elevated ALT measurement 09/18/2022 12:21 PM EDT Scheduled Procedures Name Priority Associated [...] Additional history exists GFR - Renal Function 05/30/2023 05/30/2022, 03/14/2022, 03/21/2021, Additional history exists TSH FOR THYROID MEDICATION MONITORING YEARLY 05/30/2023 05/30/2022, 03/14/2022, 12/22/2020, Additional history exists Diabetes Screening 05/30/2025 05/30/2022, 0 05/30/2022, 03/14/2022, Additional history exists Colonoscopy: Ages 45-75 11/26/2025 [...] this topic documented as of this encounter Implants Not on filedocumented as of this encounter Visit Diagnoses Diagnosis Pre-op testing Preoperative examination, unspecified Hypothyroidism Unspecified hypothyroidism Elevated ALT measurement Nonspecific elevation of levels of transaminase or lactic acid dehydrogenase (LDH) documented in this encounter Advance Directives Documents on File Type Date Recorded Patient Rejoiner Expl anation Advanced 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 Care Teams Publications Writer Relationship Specialty Start Date End Date Farooq Rodríguez, DO [address] [place] [address] PCP - General Family Medicine 08/22/19 documented as of this encounter
--- OUTSIDE RECORDS SUMMARY | 2023-09-26 01:55 | External Medical Summary | Summary of Care ---
Author Name Unknown Organization [facility] Address [place] [address] Care Team Providers Care Barman Name Role Phone Farooq Rodríguez Primary Care Provider [phone] Reason for Referral * Precert (Within 10 days (routine)) - Pending Review Specialty Diagnoses / Procedures Referred By Contac t Referred To Contact Radiology Diagnoses Arachnoiditis Lumbar radiculopathy Chronic pain syndrome Procedures MRI T SPINE WO CONTRAST Gaurang Rodriguez DO [address] [employer] [place] [address] Referral ID Status Reason Start Date Expiration Date V isits Requested Visits Authorized [id number] Pending Review 09/21/2022 999 999 Reason for Visit * Reason Comments Back Pain Encounter Details Date Type Department Care Team Description 09/20/2022 Office Visit Interventional Pain Center, [facility] [address] [place] [address] Gaurang Rodriguez DO [address] [place] [phone] Chronic pain syndrome*; Arachnoiditis; Lumbar radiculopathy Allergies No known active allergiesdocumented as of this encounter (statuses as of 09/20/2022) Medications Medication Sig Dispensed Refills Start Date [...] 400 Units by mouth daily. 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 History of Present Illness: Placido Dean is a 62 year old year-old male with a past medical history significant for arachnoiditis and bilateral lumbar radicular pain who is here for a follow-up appointment regarding SCS trial placement. Mr. Dean again reports a typical radicular pain pattern wherein he has lower back pain that radiates outward and inferiorly into his bilateral lower extremities. He describes that the pain traverseshis buttock region, posterolateral thighs and then passes into his posterior lower legs. "Now and th en" it can involve his feet. He does point out that he does experience swelling of the feet as well. The pain started getting worse about 9 months ago but has been going on "for years". Aggravating factors include: walking, sitting for prolonged periods of time. Alleviating factors include: laying down. The pain is present nearly constantly. His current pain score is 3/10. His average pain score is 3 / 10. His pain at its least is 3 / 10. His worst pain is 5 / 10. Reviewed psychology clearance, rated him as a good candidate for SCS trial. Denies weakness. Reports numbness of the feet. Denies bowel or bladder incontinence. Denies symptoms of saddle anesthesia. Denies fevers/chills/night sweats. Denies unintentional weight loss. Current Pertinent Medications: Amitriptyline Gabapentin tizanidine Physical Therapy: January-February 2022, Mark, "made things worse" Other Therapies: Review of Systems: A focused 12-pt ROS [...] Past Surgical History reviewed and documented in Epic. See detailed report if needed. Pertinent Labs/Test Results: No components found for: PLTS, INR No results found for: CREATININE Hemoglobin A1C (%) Date Value 05/30/2022 5.3 No results found for: AMPHETAMINE, BARBITURATES, BENZODIAZEPINES, BUPRENORPHINE, METHADONE, OPIATES, OXYCODONE, PHENCYCLIDINE, CANNABINOIDS, TOX SCREEN, TOX SCREEN-SERUM Imaging: MRI L SPINE WO CONTRAST EXAM: MRI LUMBAR SPINE WITHOUT CONTRAST - 04/13/2022 HISTORY: 61 y/o M with worsening lower back pain despite physical therapy. COMPARISON: Lumbar spine radiographs 01/17/2022. MRI brain 12/17/2014. CT chest, abdomen and pelvis 02/02/2003. TECHNIQUE: Multiplanar multisequence magnetic resonance imaging of the lumbar spine was performed without contrast. 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 Objective Physical Exam: Vital Signs: There were no vitals taken for this visit. There is no height or weight on file to calculate BMI. General: No apparent distress. Accompanied by . Assistive Devices: none. Grooming: appropriate Eyes: pupils equal and round, sclera white, pupils midsize. ENT: mucous membranes moist Resp: Non-labored breathing CV: Extremities warm and well-perfused. Psych: Oriented; affect warm, insight good. Skin: No rashes or lesions appreciated on exposed skin Neuromuscular Exam: Upon initial assessment, the patient is seated in a comfortable position. Rises from a seated position with difficulty. Upon inspection there is not evidence of scoliosis. Exam for symmetry and allignment reveals no abnormalities. Muscle bulk appears adequate. There evidence of erythema, some mild edema in the extremities. Inspection: Rises from a seated position with some difficulty. There is some evidence of pedal edema, mild. Gait: Ambulates unassisted; gait is antalgic. Palpation: Palpation does reveal midline lumbar tenderness; There is lumbar paraspinal tenderness bilaterally regions. Trigger points were not identified. PSIS tenderness: none GTB tenderness: none Spine range of motion: There is not pain with lumbar extension There is not pain with lumbar oblique extension to the right There is not pain with lumbar oblique extension to the left There is not pain with lumbar flexion Range of motion is grossly intact at the hips, knees and ankles bilaterally. Motor: Motor strength exam reveals: Lower extremities: Right Left Hip flexion: L1,L2,L3 5/5 5/5 Add hips: L2L3 5/5 5/5 Knee flexion: S1 5/5 5/5 Knee extension: L3,L4 5/5 5/5 Dorsiflexion: L4,L5 5/5 5/5 Plantarflexion: S1 5/5 5/5 EHL: L5 5/5 5/5 Sensory: Sensory exam to light touch is intact in the L2-S1 dermatomes in the bilateral lower extremities. Reflexes: Deep tendon reflexes, Right 2+ patellar, 2+ Achilles, Left 2+ patellar, 2+ Achilles, No ankle clonus. Sitting straight leg test Positive on the right 1. Positive on the left. Assessment: Placido is a 62 year old year-old male with: Chronic pain syndrome (Primary) - MRI T SPINE WO CONTRAST; Future; Expected date: 09/21/2022 Arachnoiditis - MRI T SPINE WO CONTRAST; Future; Expected date: 09/21/2022 Lumbar radiculopathy - MRI T SPINE WO CONTRAST; Future; Expected date: 09/21/2022 Plan: Patient is a good candidate for SCS trial, will likely proceed with [employer] stimulator placement. Will touch base with spine surgeon in [place] to see if expectation is for him to return for permanent placement. Does not appear that we have ordered a thoracic MRI upon review of psychology clearance and lumbar MRI as well as previous encounters. Will need this pre-operatively. Telephonic follow-up after the MRI is completed. Medical Decision Making I spent 40 minutes reviewing the patient's prior visit office notes, procedure notes, images, conducting the history and physical examination, formulating a care plan, considering interventional options, drafting orders and medication prescriptions as well as recording the medical documentation. Gaurang Rodriguez DO Interventional Pain Center, [facility] [address] [place] [address] documented in this encounter Nursing Notes * Elizabeth King LPN - 09/20/2022 11:13 AM EDT Patient here to discuss SCS trial-would like to get a date set up documented in this encounter Plan of Treatment Upcoming Encounters Date Type Specialty Care Team Description 09/23/2022 Imaging Radiology 09/26/2022 Office Visit Orthopedics Nima Cox DO [address] [place] [address] 10/03/2022 Office Visit Orthopedics Nima Cox DO [address] [place] [address] 10/04/2022 Telemedicine Pain Medicine Gaurang Rodriguez DO [address] [place] [phone] 11/21/2022 Office Visit Cardiology Kath Carlin PA-C [address] [place] [address] Scheduled Orders Name Type Priority Associated Diagnoses Orde r Schedule MRI T SPINE WO CONTRAST Medical Imaging Routine Arachnoiditis Lumbar radiculopathy Chronic pain syndrome Expected: 09/21/2022, Expires: 12/21/2022 Scheduled Procedures Name Priority Associated Diagnoses Date/Ti [...] Visit Diagnoses Diagnosis Chronic pain syndrome- Primary Arachnoiditis Meningitis, unspecified Lumbar radiculopathy Thoracic or lumbosacral neuritis or radiculitis, unspecified documented in this encounter Advance Directives Documents on File Type Date Recorded Patient Cigar Packing Examiner Expl anation Advanced Directive Advanced Directive Advanced [...] Directive Advanced Directive Advanced Directive Care Teams Barman Relationship Specialty Start Date End Date Farooq Rodríguez, DO [address] [place] [address] PCP - General Family Medicine 08/22/19 documented as of this encounter
--- OUTSIDE RECORDS SUMMARY | 2023-09-26 01:55 | External Medical Summary | Summary of Care ---
Author Name Unknown Organization [facility] Address [place] [address] Care Team Providers Care Senior Corporate Recruiter Name Role Phone Farooq Rodríguez Primary Care Provider [phone] Reason for Visit * Reason Onset Date Comments Advice 09/22/2022 Encounter Details Date Type Department Care Team Description 09/22/2022 Telephone Interventional Pain Center, [facility] [address] [place] [id number] Gaurang Rodriguez DO [address] [place] [phone] Advice Allergies No known active allergiesdocumented as of this encounter (statuses as of 09/26/2022) Medications Medication Sig Dispensed Refills Start Date End Date Status ASPIRIN 81 MG PO TABS One daily 0 Active ZYRTEC ALLERGY 10 MG PO TABS one daily 0 Active ALBUTEROL SULFATE (2.5 MG/3ML) 0.083% IN [facility] Inhale via nebulizer . 0 Active HM [...] 400 Units by mouth daily. 0 Active [place]-3 Fatty Acids (OMEGA 3 500) 500 MG [...] after 11/01. 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 NICOLAS Crook DO; Farooq Rodríguez DO Cc: Elizabeth King LPN Good morning, Mr. Dean may hold his ASA as requested. He is considered low risk from cardiac standpoint. He doesnot have any cardiac stents Thanks Nisreen Carlin Previous Messages ----- Message ----- From: Gaurang Rodriguez DO Sent: 09/20/2022 12:11 PM EDT To: Kath Carlin PA-C, * Subject: ASA antiplatelet therapy hold Good afternoon, I am planning to do a SCS trial placement on Mr. Dean. He will need to hold aspirin for 7 days prior to the procedure, 5 days if he is at elevated risk and for the duration of the 5 day trial. Will this be feasible based on his history? Thanks, Gaurang Rodriguez DO Interventional Pain Center, [facility] [address] [place] [address] documented in this encounter Plan of Treatment Upcoming Encounters Date Type Specialty Care Team Description 10/03/2022 Office Visit Orthopedics Nima Cox, [address] [place] [address] 10/04/2022 Telemedicine Pain Medicine Gaurang Rodriguez, [address] [place] [phone] 11/21/2022 Office Visit Cardiology Kath Carlin PA-C [address] [place] [address] Scheduled Procedures Name Priority Associated Diagnoses Date/Ti [...] filedocumented as of this encounter Care Teams Senior Corporate Recruiter Relationship Specialty Start Date End Date Farooq Rodríguez, DO [address] [place] [address] PCP - General Family Medicine 08/22/19 documented as of this encounter
--- OUTSIDE RECORDS SUMMARY | 2023-09-26 01:55 | External Medical Summary | Summary of Care ---
Author Name Unknown Organization [place] [address] Care Team Providers Care Production Lead Name Role Phone AntolinKelly roger Primary Care Provider [phone] Reason for Visit * Reason Onset Date Comments eRx-Medication Refill Medication Refill 09/20/2022 Encounter Details Date Type Department Care Team Description 08/31/2022 Refill Family Practice [facility] [address] [facility] [place] [address] Samantha Soto PA-C [address] [facility] [place] [address] Acquired hypothyroidism*; Acute low back pain without sciatica, unspecified [...] 400 Units by mouth daily. 0 Active [place]-3 Fatty Acids (OMEGA 3 500) 500 [...] after 11/01. 30 Tablet 11 09/20/2022 Active tiZANidine HCl 4 MG Oral Tablet (Zanaflex)Indicat ions:Acute low back pain without sciatica, unspecified back pain laterality Take by mouth 1 Tablet every 6 hours as needed for Muscle spasms. 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 Pneumonia due to other virus not elsewhere class ified 12/24/2002 04/29/2021 documented as of this encounter (statuses as of 09/20/2022) Immunizations Name Administration Dates Next Due COVID-19 mRNA, LNP-s, No Pre serve, 2-Dose Series (HYLA Mobile) 04/09/2021,03/19/2021 Pneumococcal Conjugate Vacc, 13 Valent (Prevnar) [...] encounter Miscellaneous Notes * Telephone Encounter - DO Mp Gomez 09/01/2022 1:44 PM EDT Signed Prescriptions: Disp Refills tiZANidine HCl 4 MG Oral Tablet (Zanaflex) 30 Tab*5 Sig: TAKE 1 TABLET BY MOUTH EVERY 6 HOURS NEEDED FOR MUSCLE SPASM Authorizing Provider: KELLY MITCHELL * Telephone Encounter - Alice Worrell LPN - 09/01/2022 9:07 AM EDT Pending Prescriptions: Disp Refills tiZANidine HCl 4 MG Oral Tablet (Zanaflex*30 Tab*0 Sig: TAKE 1 TABLET BY MOUTH EVERY 6 HOURS NEEDED FOR MUSCLE SPASM * Telephone Encounter - Alice Worrell LPN - 09/01/2022 9:07 AM EDT Pending Prescriptions: Disp Refills tiZANidine HCl 4 MG Oral Tablet (Zanaflex*30 Tab*0 Sig: TAKE 1 TABLET BY MOUTH EVERY 6 HOURS NEEDED FOR MUSCLE SPASM Last Visit: 06/06/2022 (in office), 03/15/2020 (telemedicine) Next Visit: Visit date not found Last date the medication was ordered: 01/17/2022 Patient Active Problem List Diagnosis Code Pericardial [...] (BMI) of 40.0 to 44.9 in adult ([facility]) Z68.41 Labs: Lab Results Component Value Date/Time CREATININE (GRL) 1.1 05/14/1997 09:48 AM CREATININE - [facility] 1.2 05/30/2022 07:40 AM CREATININE - [facility] 1.1 11/21/2019 09:45 AM CREATININE ISTAT 0.9 01/22/2013 10:24 AM Lab Results Component Value Date/Time POTASSIUM - [facility] 4.1 05/30/2022 07:40 AM POTASSIUM - [facility] 4.3 11/21/2019 09:45 AM POTASSIUM POCT - [facility] 3.5 01/22/2013 10:24 AM POTASSIUM, WHOLE BLOOD - [facility] 3.9 12/22/2002 07:00 PM Lab Results Component Value Date/Time TSH - [facility] 4.89 (H) 05/30/2022 07:40 AM TSH - [facility] 3.60 11/21/2019 09:45 AM [...] Results Component Value Date/Time ALT - [facility] 66 (H) 05/30/2022 07:40 AM ALT - [facility] 33 11/21/2019 09:45 AM Hemoglobin AIC Results: Lab Results Component Value Date/Time HEMOGLOBIN A1C - [facility] 5.3 05/30/2022 07:40 AM * Telephone Encounter - Monica Cole - 08/31/2022 7:38 PM EDT Pending Prescriptions: Disp Refills tiZANidine HCl 4 MG Oral Tablet 30 Tab*0 Sig: TAKE 1 TABLET BYMOUTH EVERY 6 HOURS NEEDED FOR MUSCLE SPASM documented in this encounter Plan of Treatment Upcoming Encounters Date Type Specialty Care Team Description 09/23/2022 Imaging Radiology 09/26/2022 Office Visit Orthopedics Nima Cox, [address] [address] 10/03/2022 Office Visit Orthopedics Nima Cox, [address] [address] 10/04/2022 Telemedicine Pain Medicine Gaurang Rodriguez, [address] [place] [place] [phone] 11/21/2022 Office Visit Cardiology Kath Carlin PA-C [address] [place] [place] [address] Scheduled Orders Name Type Priority Associated Diagnoses Orde r Schedule TSH WITH FREE T4 IF INDICATED Lab Routine Acquired hypothyroidism Expected: 10/20/2022 (Approximate), Expires: 09/20/2023 Scheduled Procedures Name Priority Associated Diagnoses Date/Ti [...] of this encounter Visit Diagnoses Diagnosis Acquired hypothyroidism- Primary Unspecified hypothyroidism Acute low back pain without sciatica, unspecified back pain laterality documented in this encounter Advance Directives Documents on File Type Date Recorded Patient Dressmaker Helper Expl anation Advanced Directive Advanced Directive Advanced [...] Directive Advanced Directive Advanced Directive Care Teams Production Lead Relationship Specialty Start Date End Date Kelly Mitchell, DO [address] [place] [address] PCP - General Family Medicine 08/22/19 documented as of this encounter
--- OUTSIDE RECORDS SUMMARY | 2023-09-26 01:56 | External Medical Summary ---
Author Name Unknown Address Unknown Organization [id number]:[facility] [place] [address] [place] [address] Laboratory Report Ordering Provider Test Date Status 09/18/2022 12:21:08 Final Observation Date Value Abnormality Reference (Units ) Status BUN 09/18/2022 12:21:08 13 6-20 (mg/dL) Final Creatinine 09/18/2022 12:21:08 1.1 0.6-1.2 (mg/dL) Final Glomerular filtration rate/1.73 sq M.predicted [Volume Rate/Area] in Serum, Plasma or Blood by Creatinine-based formula (CKD-EPI) 09/18/2022 12:21:08 81 >=60 (mL/min) Final eGFR is calculated based on the CKD-EPI 2020 equation SODIUM 09/18/2022 12:21:08 139 135-146 (m mol/L) Final Potassium 09/18/2022 12:21:08 3.6 3.5-5.1 (m mol/L) Final Cl 09/18/2022 12:21:08 100 98-107 (mm ol/L) Final CO2 09/18/2022 12:21:08 27 22-32 (mmo l/L) Final Anion gap 09/18/2022 12:21:08 12 7-15 (mmol /L) Final Glucose 09/18/2022 12:21:08 143 Above high normal 70 -120 (mg/dL) Final Albumin 09/18/2022 12:21:08 4.5 3.8-5.0 (g /dL) Final AST (Aspartate aminotransferase) 09/18/2022 12:21:08 44 10-50 (U/L) Fin al Result may be falsely elevat ed due to hemolysis. Alk Phos 09/18/2022 12:21:08 77 35-130 (U/ L) Final Bilirubin, Total 09/18/2022 12:21:08 0.4 <=1 .2 (mg/dL) Final Calcium 09/18/2022 12:21:08 9.3 8.4-10.2 ( mg/dL) Final Protein 09/18/2022 12:21:08 6.6 6.0-8.3 (g /dL) Final ALT (Alanine aminotransferase) 09/18/2022 12:21:08 87 Above high normal 10-50 (U/L) Final Performing Location [facility] [place] [address] - [address] [facility] [address]
--- OUTSIDE RECORDS SUMMARY | 2023-09-26 01:56 | External Medical Summary ---
Author Name Unknown Address Unknown Organization [id number] [place] [address] - [address] [place] [address] Laboratory Report Ordering Provider Test Date Status 09/18/2022 12:21:08 Final Observation Date Value Abnormality Reference (Units ) Status SYNC LEUKOCYTES IN BLOOD BY AUTOMATED COUNT 09/18/2022 12:21:08 7.47 4.00-10.80 (K/uL) Final Segs 09/18/2022 12:21:08 51.5 40.0-75.0 (%) Final Lymphs % 09/18/2022 12:21:08 29.9 18.0-42.0 (%) Final Monos 09/18/2022 12:21:08 13.7 Above high normal 1.0-11.0 (%) Final Eosinophils 09/18/2022 12:21:08 4.4 0.0-6.0 (%) Final Basos 09/18/2022 12:21:08 0.5 0.0-2.0 (%) Final Absolute Segs 09/18/2022 12:21:08 3.85 1.80-7.70 (K/uL) Final Lymphs, absolute 09/18/2022 12:21:08 2.23 1.00-4.80 (K/ul) Final Monos, Abs 09/18/2022 12:21:08 1.02 0.00-1.10 (K/uL) Final Eos, Abs 09/18/2022 12:21:08 0.33 0.00-0.70 (K/uL) Final Basos, Abs 09/18/2022 12:21:08 0.04 0.00-0.20 (K/uL) Final Performing Location [facility] [place] [address] - [address] [place] [address]
--- OUTSIDE RECORDS SUMMARY | 2023-09-26 01:56 | External Medical Summary ---
Author Name Unknown Address Unknown Organization [id number]:[facility] - [address] [place] [address] [place] [address] Laboratory Report Ordering Provider Test Date Status JEREMY NETTLES 09/18/2022 12:21:35 Final Observation Date Value Abnormality Reference (Units ) Status T4, Free 09/18/2022 12:21:35 1.2 0.9-1.7 (n g/dL) Final Performing Location [facility] - [address] [place] [address]
--- OUTSIDE RECORDS SUMMARY | 2023-09-26 01:56 | External Medical Summary ---
Author Name Unknown Address Unknown Organization K0[facility] [place] [address] - [address] [place] [address] Laboratory Report Ordering Provider Test Date Status CAROLE RICE 09/18/2022 12:21:35 Final Observation Date Value Abnormality Reference (Units ) Status Albumin 09/18/2022 12:21:35 4.5 3.8-5.0 (g/dL) Final AST (Aspartate aminotransferase) 09/18/2022 12:21:35 41 10-50 (U/L) Final Alk Phos 09/18/2022 12:21:35 77 35-130 (U/L) Final ALT (Alanine aminotransferase) 09/18/2022 12:21:35 86 Above high normal 10-50 (U/L) Final Bilirubin, Total 09/18/2022 12:21:35 0.4 <=1.2 (mg/dL) Final Bilirubin, Direct 09/18/2022 12:21:35 <0.2 0.0-0.3 (mg/dL) Final Protein 09/18/2022 12:21:35 6.6 6.0-8.3 (g/dL) Final Performing Location [facility] [place] [address] [place] [address]
--- OUTSIDE RECORDS SUMMARY | 2023-09-26 01:56 | External Medical Summary | Summary of Care ---
Author Name Unknown Organization [facility] Address [place] [address] Care Team Providers Care Advisory Services Associate Name Role Phone Farooq Rodríguez Primary Care Provider [phone] Reason for Visit * Reason Comments Follow Up left knee Encounter Details Date Type Department Care Team Description 09/18/2022 Office Visit [facility]ed[facility] [address] [facility] [place] [address] Nima Cox DO [address] [facility] [place] [address] Primary osteoarthritis of both knees* Allergies No [...] 400 Units by mouth daily. 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 Pneumonia due to other [...] Progress Notes * Nima Cox DO - 09/18/2022 11:30 AM EDT Placido Dianne [id number] Placido Dean is a 62 year old male who presents for f/u to [facility] for b/l knee pain start Gelsyn series Placido Dean is here with Date of Injury: no injury, pain since 2020 History: Seen by me on 02/28/22 and 05/30/22 see those notes for details, had IA steroid injections Formal physical therapy YES in the past TODAY: would like to try MADRID injections Previous knee injuries include: -no previous knee injuries or surgeries ROS EXAM:Constitional: No change in weight, No weakness, No fatigue and No fevers, sweats, or chills 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 [place]-3 Fatty Acids (OMEGA 3 500) 500 MG [...] by mouth once daily 90 Tablet 3 Levothyroxine Sodium 100 MCG Oral Tablet TAKE 1 TABLET BY MOUTH IN THE MORNING AT LEAST 30 MINUTES PRIOR TO BREAKFAST OR OTHER MEDS 90 Tablet 3 tiZANidine HCl 4 MG Oral Tablet (Zanaflex) TAKE 1 TABLET BY MOUTH EVERY 6 HOURS NEEDED FOR MUSCLE SPASM 30 Tablet 5 No current facility-administered medications for this [...] - 5/5 Popliteal mass - negative Bilateral Assessment and Plan: Will do injections f/u next week for Gelsyn #2 Primary osteoarthritis of both knees (Primary) - sodium hyaluronate (Gelsyn-3) 16.8 MG/2ML inj 16.8 mg - sodium hyaluronate (Gelsyn-3) 16.8 MG/2ML inj 16.8 mg - INJECT MAJOR JX/BURSA W/O US GUIDE Nima Cox, DO Primary Care Sports [facility] [address] [address] Procedure note (knee injection), Blateral Time out: [...] documented in this encounter Nursing Notes * WIL Guerra - 09/18/2022 11:22 AM EDT Follow up Patient Follow up: knee Side: left Date of last visit: 05/30/22 Improvement since last office visit: Na percent. Prior Treatment: Steroid injection Here for Test Results: no Goals for this appointment: Discuss gel injections. emmett nick documented in this encounter Plan of Treatment Upcoming Encounters Date Type Specialty Care Team Description 09/18/2022 Laboratory Laboratory Saeid Watts [address] [address] Pre-op testing; Hypothyroidism; Elevated ALT measurement 09/20/2022 Office Visit Pain Medicine Gaurang Rodriguez DO [address] [place] [phone] 09/26/2022 Office Visit Orthopedics Nima Cox DO [address] [place] [address] 10/03/2022 Office Visit Orthopedics Nima Cox DO [address] [address] 11/21/2022 Office Visit Cardiology Kath Carlin PA-C [address] [place] [address] Scheduled Orders Name Type Priority Associated Diagnoses Orde r Schedule INJECT MAJOR JX/BURSA W/O US GUIDE Procedures Routine Primary osteoarthritis of both knees Ordered: 09/18/2022 Scheduled Procedures Name Priority Associated Diagnoses Date/Ti [...] knees- Primary Primary localized osteoarthrosis, lower leg Pre-op testing Preoperative examination, unspecified Hypothyroidism Unspecified hypothyroidism Elevated ALT measurement Nonspecific elevation of levels of transaminase or lactic acid dehydrogenase (LDH) documented in this encounter Administered Medications Inactive Administered Medications - up to 3 most recent administrations Medication Order MAR Action Action Date Dose Rate Site sodium hyaluronate (Gelsyn-3) 16.8 MG/2ML inj 16.8 mg 16.8 mg, Intra-Articular, ONCE, On Sun09/18/22 at 1245, For 1 dose Given 09/18/2022 12:26 PM EDT 16.8 mg Knee Right sodium hyaluronate (Gelsyn-3) 16.8 MG/2ML inj 16.8 mg 16.8 mg, Intra-Articular, ONCE, On Sun09/18/22 at 1245, For 1 dose Given 09/18/2022 12:26 PM EDT 16.8 mg Knee Left documented in this encounter Advance Directives Documents on File Type Date Recorded Patient Local Driver Expl anation Advanced Directive Advanced Directive Advanced [...] Directive Advanced Directive Advanced Directive Care Teams Advisory Services Associate Relationship Specialty Start Date End Date Farooq Rodríguez, DO [address] [place] [address] PCP - General Family Medicine 08/22/19 documented as of this encounter
--- OUTSIDE RECORDS SUMMARY | 2023-09-26 01:56 | External Medical Summary ---
Author Name Unknown Address Unknown Organization K01:[facility] - [address] [place] [address] Laboratory Report Ordering Provider Test Date Status JEREMY NETTLES 09/18/2022 12:21:35 Final Observation Date Value Abnormality Reference (Units ) Status TSH 09/18/2022 12:21:35 4.86 Above high normal 0. 27-4.20 (uIU/mL) Final Performing Location [facility] - [address] [place] [address]
--- OUTSIDE RECORDS SUMMARY | 2023-09-26 01:56 | External Medical Summary | Summary of Care ---
Author Name Unknown Organization [facility] Address [place] [address] Care Team Providers Care Erp Analyst Name Role Phone Farooq Rodríguez Primary Care Provider [phone] Reason for Visit * Reason Comments Follow Up left knee Encounter Details Date Type Department Care Team Description 09/18/2022 Office [facility] [place] [address] Nima Cox DO 132 [facility] [place] [address] Primary osteoarthritis of both knees* Allergies No [...] 400 Units by mouth daily. 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 [place]-3 Fatty Acids (OMEGA 3 500) 500 MG [...] Cox, DO Primary Care Sports [facility] [address] [address] Procedure note (knee injection), Blateral Time out: [...] Laboratory Laboratory Saeid Watts [address] [address] Pre-op testing; Hypothyroidism; Elevated ALT measurement 09/20/2022 Office Visit Pain Medicine Gaurang Rodriguez DO [address] [place] [phone] 09/26/2022 Office Visit Orthopedics Nima Cox DO [address] [address] 10/03/2022 Office Visit Orthopedics Nima Cox DO [address] [address] 11/21/2022 Office Visit Cardiology Kath Carlin PA-C [address] [place] [place] [address] Scheduled Orders Name Type Priority Associated Diagnoses [...] Documents on File Type Date Recorded Patient Supervisor Gas Meter Repair Expl anation Advanced Directive Advanced Directive Advanced [...] Directive Advanced Directive Advanced Directive Care Teams Erp Analyst Relationship Specialty Start Date End Date Farooq Rodríguez, DO [address] [place] [address] PCP - General Family Medicine 08/22/19 documented as of this encounter
--- OUTSIDE RECORDS SUMMARY | 2023-09-26 01:56 | External Medical Summary ---
Author Name Unknown Address Unknown Organization K0G:[facility] [address] - [address] [place] [address] Laboratory Report Ordering Provider Test Date Status 09/18/2022 12:21:08 Final Observation Date Value Abnormality Reference (Units ) Status WBC, Total 09/18/2022 12:21:08 7.47 4.00-10.8 0 (K/uL) Final RBC 09/18/2022 12:21:08 4.40 4.50-5.25 (M/uL) Final Hemoglobin 09/18/2022 12:21:08 13.6 Below low normal 14 .0-16.8 (g/dL) Final HCT 09/18/2022 12:21:08 40.0 40.0-48.4 (%) Final MCV 09/18/2022 12:21:08 90.9 82.0-99.5 (fL) Final MCH 09/18/2022 12:21:08 30.9 27.0-34.0 (pg) Final MCHC 09/18/2022 12:21:08 34.0 32.0-36.0 (g/dL) Final RDW 09/18/2022 12:21:08 12.7 11.5-15.5 (%) Final Platelets 09/18/2022 12:21:08 180 140-400 (K /uL) Final MPV 09/18/2022 12:21:08 10.9 6.6-11.1 ( fL) Final Performing Location [facility] [address] [place] [address]
--- OUTSIDE RECORDS SUMMARY | 2023-09-26 01:56 | External Medical Summary ---
Author Name Unknown Address Unknown Organization K0G:[facility] [address] - [address] [place] [address] Laboratory Report Ordering Provider Test Date Status 09/18/2022 12:21:08 Final Warfarin Therapy
INR: 2 .0-3.0 conventional anticoagulation
INR: 2.5- 3.5 high intensity anticoagulation Observation Date Value Abnormality Reference (Units ) Status PT 09/18/2022 12:21:08 11.9 11.6-15.2 (seconds) Final INR 09/18/2022 12:21:08 0.9 0.8-1.2 Final Performing Location [facility] [address] - [address] [place] [address]
--- OUTSIDE RECORDS SUMMARY | 2023-09-26 01:57 | External Medical Summary | Summary of Care ---
Author Name Unknown Organization [facility] Address [facility] [place] [address] Care Team Providers Care Dry Cleaning Attendant Name Role Phone Farooq Rodríguez DO Primary Care Provider [phone] Encounter Details Date Type Department Care Team Description 09/08/[address] [facility] [address] [place] [address] Farooq Rodríguez DO 200 [facility] [place] [address] <No scans attached> Allergies No known active allergiesdocumented as of this encounter (statuses as of 09/11/2022) Medications Medication Sig Dispensed Refills Start Date [...] 400 Units by mouth daily. 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 Pneumonia due to other virus not elsewhere class ified 12/24/2002 04/29/2021 documented as of this encounter (statuses as of 09/11/2022) Immunizations Name Administration Dates Next Due COVID-19 [...] Date Type Specialty Care Team Description 09/18/2022 Office Visit Orthopedics Nima Cox, [address] [address] 09/20/2022 Office Visit Pain Medicine Gaurang Rodriguez, [address] [phone] 11/21/2022 Office Visit Cardiology Kath Carlin PA-C [address] [address] Scheduled Procedures Name Priority Associated Diagnoses Date/Ti me COLONOSCOPY FLEXIBLE PROXIMA L DIAGNOSTIC Recall Encounter for screening colonoscopy [facility] Maintenance Due Date Last Done Comments Alb / Creat Ratio 1980 Cologuard: Ages 45-75 2007 FOBT: Ages 45-75 2007 Sigmoidoscopy: Ages 45-75 2007 COVID-19 Vaccine (3 - Booster for Pfizer series) 06/04/2021 04/09/2021, 03/19/2021 Depression Screening, Annual for Pts 12 and Over 04/29/2022 04/29/2021 Influenza Vaccine (FLU shot) (#1) 2022 09/02/2020, 09/02/2020, 08/18/2020, Additional history exists GFR - Renal Function [...] Not on filedocumented as of this encounter Advance Directives Documents on File Type Date Recorded Patient Hog Ribber Expl anation Advanced Directive Advanced Directive Advanced [...] Directive Advanced Directive Advanced Directive Care Teams Dry Cleaning Attendant Relationship Specialty Start Date End Date Farooq Rodríguez, DO [address] [place] [address] PCP - General Family Medicine 08/22/19 documented as of this encounter
--- OUTSIDE RECORDS SUMMARY | 2023-09-26 01:57 | External Medical Summary | Summary of Care ---
Author Name Unknown Organization [place] [address] Care Team Providers Care Residential Monitor Name Role Phone Farooq Rodríguez DO Primary Care Provider [phone] Encounter Details Date Type Department Care Team Description 08/23/2022 Patient Reported Data Patient Survey Ortho OBERD Allergies No known active allergiesdocumented as of this encounter (statuses as of 08/23/2022) Medications Medication Sig Dispensed Refills Start Date [...] 400 Units by mouth daily. 0 Active [place]-3 Fatty Acids (OMEGA 3 500) 500 MG CAPS Take by mouth. 0 Active Azelastine HCl 0.1 % nasal sprayIndications:Ch ronic rhinitis USE 2 SPRAY(S) IN EACH NOSTRIL TWICE DAILY 90 mL 1 04/03/2019 Active Meclizine HCl 25 MG Oral Tablet (Antivert) TAKE 1 TABLET BY MOUTH THREE TIMES DAILY NEEDED FOR DIZZINESS 30 Tab 5 08/08/2021 Active tiZANidine HCl 4 MG Oral Tablet (Zanaflex)Indicatio ns:Acute low back pain without sciatica, unspecified back pain laterality Take by mouth 1 Tablet every 6 hours as needed for Muscle spasms. 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 Pneumonia due to other virus not elsewhere class ified 12/24/2002 04/29/2021 documented as of this encounter (statuses as of 08/23/2022) Immunizations Name Administration Dates Next Due COVID-19 [...] Team Description 09/18/2022 Office Visit Orthopedics Nima Cox DO [address] [place] [address] 11/21/2022 Office Visit Cardiology Kath Carlin PA-C [address] [place] [address] Scheduled Procedures Name Priority Associated Diagnoses Date/Ti [...] Documents on File Type Date Recorded Patient Operations Controller Expl anation Advanced Directive Advanced Directive Advanced [...] Directive Advanced Directive Advanced Directive Care Teams Residential Monitor Relationship Specialty Start Date End Date Farooq Rodríguez, DO [address] [place] [address] PCP - General Family Medicine 08/22/19 documented as of this encounter
--- OUTSIDE RECORDS SUMMARY | 2023-09-26 01:57 | External Medical Summary | Summary of Care ---
Author Name Unknown Organization [place] [address] Care Team Providers Care Housekeeping Aide Name Role Phone Farooq Rodríguez DO Primary Care Provider [phone] Encounter Details Date Type Department Care Team [...] 400 Units by mouth daily. 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
--- OUTSIDE RECORDS SUMMARY | 2023-09-26 01:57 | External Medical Summary | Summary of Care ---
Author Name Unknown Organization [place] [address] Care Team Providers Care Inset Cutter Name Role Phone Farooq Rodríguez DO Primary Care Provider [phone] Encounter Details Date Type Department Care Team [...] 400 Units by mouth daily. 0 Active [place]-3 Fatty Acids (OMEGA 3 500) 500 MG [...] Nima Cox DO [address] [place] [address] 11/21/2022 Office Visit Cardiology Kath Carlin PA-C [address] [place] [address] Scheduled Procedures Name Priority Associated Diagnoses Date/Ti [...] Documents on File Type Date Recorded Patient Director Biostatistics Expl anation Advanced Directive Advanced Directive Advanced [...] Directive Advanced Directive Advanced Directive Care Teams Inset Cutter Relationship Specialty Start Date End Date Farooq Rodríguez, DO [address] [place] [address] PCP - General Family Medicine 08/22/19 documented as of this encounter
--- OUTSIDE RECORDS SUMMARY | 2023-09-26 01:58 | External Medical Summary | Summary of Care ---
Author Name Unknown Organization [facility] Address [place] [address] Care Team Providers Care Nurse Licensed Practical Name Role Phone AntolinFarooq roger Belle PEÑA Primary Care Provider [phone] Reason for Referral * Evaluate & Treat - Unlimited Visits (Within 10 days (routine)) - Pending Review Specialty Diagnoses / Procedures Referred By Contac t Referred To Contact Psychology Diagnoses Lumbar radicular pain Arachnoiditis Rosa Bolton PA-C [address] [facility] [place] [address] Referral ID Status Reason Start Date Expiration Date Visits Requested Visits Authorized [id number] Pending Review Specialty Services Required 07/21/[phone] Question Answer Referral Priority Within 10 days (routine) Referral Location Referring within [facility] Reason for Referral: Pain Type of Service: Other (Comment) - SCS Reason for Visit * Evaluate & Treat - Unlimited Visits (Within 10 days (routine)) - Pending Review Specialty Diagnoses / Procedures Referred By Contac t Referred To Contact Pain Management / Pain Medicine Diagnoses Lumbar radiculopathy Arachnoiditis Sabrina Odom PA-C [address] [facility] [place] [address] Referral ID Status Reason Start Date Expiration Date Visits Requested Visits Authorized [id number] Pending Review Specialty Services Required 06/27/[phone] Encounter Details Date Type Department Care Team Description 07/21/2022 Office Visit [facility], [address] [place] [address] Rosa Bolton PA-C [address] [facility] [place] [address] Lumbar radicular pain*; Arachnoiditis Allergies No known active allergiesdocumented as of this encounter (statuses as of 08/22/2022) Medications Medication Sig Dispensed Refills Start Date [...] 400 Units by mouth daily. 0 Active [place]-3 Fatty Acids (OMEGA 3 500) 500 MG [...] 01/17/2022 Active Gabapentin 300 MG Oral Capsule (Neurontin)Indica [...] 07/04/2022 Active Levothyroxine Sodium 100 MCG Oral Tablet (Euthyrox)Indicat ions:Hypothyroidi sm Take by mouth 1 Tablet in the morning. (at least 30 min prior to breakfast or other meds). 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 Gaurang Rodriguez DO * Rosa Bolton PA-C - 07/21/2022 8:21 AM EDT Name: Placido Dean Date: 07/21/2022 HPI: Placido Dean is a 62 year old male known to the Pain Management clinic presents for follow up after neurosurgical consultation. Requesting consideration of SCS trial. Neurosurgery would be willing to complete trial and/or permanent implantation if necessary. Locates pain bilateral low back and buttock that radiates to L > R posterior/lateral thigh, lateral calf. Concerned for progressive weakness, continues to use cane. Rates pain 3/10 and is tawanna nature. Intermittent paresthesia B feet, worse at night. Denies bowel/bladder dysfunction. Continues home stretching program based on previous physical therapy. Frustrated the pain is limiting activity that he continues to gain weight. Using motrin, tylenol for pain relief. Mild benefit with zanaflex, topical lidocaine. Unable to tolerate gabapentin. Pain is affecting ADL, sleep. Presents with , Bev. 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 Pericardial effusion 01/2003 idiopathic, at [facility] Pilonidal cyst without infection Past Surgical History: Procedure Laterality Date BRONCHOSCOPY W/ BRONCHIAL BIOPSY 2003 biopsy, open and bronchoscopy COLONOSCOPY, DIAGNOSTIC (RECTUM) 11/29/2012 COLONOSCOPY FLEXIBLE PROXIMAL DIAGNOSTIC performed by Cristy Dobbs DO at ENDOSCOPY [facility] COLONOSCOPY, DIAGNOSTIC (RECTUM) 11/26/2015 diverticulosis, repeat 10 yrs/COLONOSCOPY FLEXIBLE PROXIMAL DIAGNOSTIC performed by Cristy Dobbs DO at [facility]COPY [facility] DENTAL SURGERY PROCEDURE NEC Dental Surgery Procedure DRAINAGE OF HEART SAC 2002 [facility] REMOVAL OF WRIST [...] Capsule Take 400 Units by mouth daily. [place]-3 Fatty Acids (OMEGA 3 500) 500 MG CAPS Take by mouth. Azelastine HCl 0.1 % nasal spray USE 2 SPRAY(S) IN EACH NOSTRIL TWICE DAILY 90 mL 1 Meclizine HCl 25 MG Oral Tablet (Antivert) TAKE 1 TABLET BY MOUTH THREE TIMES DAILY NEEDED FOR DIZZINESS 30 Tab 5 tiZANidine HCl 4 MG Oral Tablet (Zanaflex) Take by mouth 1 Tablet every 6 hours as needed for Muscle spasms. 30 Tablet 0 Gabapentin 300 MG Oral Capsule (Neurontin) Take [...] on Sunday, Sunday, Sunday 45 Tablet 11 Levothyroxine Sodium 100 MCG Oral Tablet (Euthyrox) Take by mouth 1 Tablet in the morning. (at least 30 min prior to breakfast or other meds). 30 Tablet 1 Lisinopril 40 MG Oral Tablet Take 1 tablet by mouth once daily 90 Tablet 3 No current facility-administered medications [...] LUMBAR SPINE: No gross abnormalities. Skin is intact. No lesions visualized. Midline and B paravertebral musculature nontender. B sacroiliac joint nontender. No evidence of myofascial trigger points.Limited active ROM with flexion and extension of the lumbar spine. Increased pain with full extension. Lower Extremity Strength: Hip Flexion 5/5 bilaterally. Hip Abductor 5/5 bilaterally. Hip Adductor 5/5 bilaterally. Extensor Hallicus Longus 5/5 bilaterally. SENSATION: Not formally tested. No gross sensory deficits lower extremities bilaterally. GAIT/COORDINATION: Gait is intact. Ambulates with assistance. ASSESSMENT: Lumbar radicular pain Arachnoiditis RECOMMENDATION: Discussed consideration of SCS due to progressive low back pain with intractable B LE radiculopathy, as requested by neurosurgery. Minimal relief with physical therapy, daily home stretching program and medication management. 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 Discussed case with Dr. Rodriguez who is considering SCS trial, although prefers to speak with neurosurgery to consider risks - per neurosurgery note they too would consider SCS trial if necessary. In the meantime, discussed insurance mandated psych evaluation, referral placed. Provided SCS pamphlet for patient and to review. I spent a total of 20-29 minutes (exact time 26 mins) on the date of service in preparation, delivery, and documentation of the care provided to Placido Dean excluding any time spent in the performance of separately billed services. Rosa Bolton PA-C 07/21/2022 documented in this encounter Plan of Treatment Upcoming Encounters Date Type Specialty Care Team Description 11/21/2022 Office Visit Cardiology Kath Carlin PA-C [address] [facility] [place] [address] Scheduled Procedures Name Priority Associated Diagnoses Date/Ti me COLONOSCOPY FLEXIBLE PROXIMA L DIAGNOSTIC Recall Encounter for screening colonoscopy Scheduled Referrals Name Type Priority Associated Diagnoses Orde r Schedule PSYCHOLOGY REFERRAL OP Referral Within 10 days (routine) Lumbar radicular pain Arachnoiditis Ordered: 07/21/2022 Health Maintenance Due Date Last Done Comments [...] of this encounter Visit Diagnoses Diagnosis Lumbar radicular pain- Primary Thoracic or lumbosacral neuritis or radiculitis, unspecified Arachnoiditis Meningitis, unspecified documented in this encounter Advance Directives Documents on File Type Date Recorded Patient Progressive Assembler And Fitter Expl anation Advanced Directive Advanced Directive Advanced [...] Directive Advanced Directive Advanced Directive Care Teams Nurse Licensed Practical Relationship Specialty Start Date End Date Farooq Rodríguez, DO [address] [place] [address] PCP - General Family Medicine 08/22/19 documented as of this encounter
--- OUTSIDE RECORDS SUMMARY | 2023-09-26 01:58 | External Medical Summary | Summary of Care ---
Author Name Unknown Organization [place] [address] Care Team Providers Care Lean Sensei Name Role Phone Farooq Rodríguez DO Primary Care Provider [phone] Encounter Details Date Type Department Care Team [...] 400 Units by mouth daily. 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
--- OUTSIDE RECORDS SUMMARY | 2023-09-26 01:58 | External Medical Summary | Summary of Care ---
Author Name Unknown Organization [place] [address] Care Team Providers Care Long Filler Cigar Roller Machine Name Role Phone Farooq Rodríguez DO Primary Care Provider [phone] Encounter Details Date Type Department Care Team [...] 400 Units by mouth daily. 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/17/2003 [...] Nima Cox DO [address] [place] [address] 11/21/2022 Office Visit Cardiology Kath Carlin PA-C [address] [place] [address] Scheduled Procedures Name Priority Associated Diagnoses Date/Ti [...] Documents on File Type Date Recorded Patient Registered Nurse Maternal Child Expl anation Advanced Directive Advanced Directive Advanced [...] Directive Advanced Directive Advanced Directive Care Teams Long Filler Cigar Roller Machine Relationship Specialty Start Date End Date Farooq Rodríguez, DO [address] [place] [address] PCP - General Family Medicine 08/22/19 documented as of this encounter
--- OUTSIDE RECORDS SUMMARY | 2023-09-26 01:58 | External Medical Summary | Summary of Care ---
Author Name Unknown Organization [place] [address] Care Team Providers Care Technical Instructor Course Developer Name Role Phone Farooq Rodríguez DO Primary Care Provider [phone] Encounter Details Date Type Department Care Team [...] 400 Units by mouth daily. 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
--- OUTSIDE RECORDS SUMMARY | 2023-09-26 01:58 | External Medical Summary | Summary of Care ---
Author Name Unknown Organization [facility] Address [place] [address] Care Team Providers Care Nut Dehydrator Operator Name Role Phone Farooq Rodríguez DO Primary Care Provider [phone] Encounter Details Date Type Department Care Team Description 08/23/2022 Orders Only [facility], [facility] [address] [facility] [place] [address] Rosa PA-C [address] [place] [address] Arachnoiditis*; Lumbar radicular pain; Pre-op testing Allergies No known active allergiesdocumented as of this encounter (statuses as of 08/23/2022) Medications Medication Sig Dispensed Refills Start Date End Date Status ASPIRIN 81 MG PO TABS One daily 0 Active ZYRTEC ALLERGY 10 MG PO TABS one daily 0 Active ALBUTEROL SULFATE (2.5 MG/3ML) 0.083% [facility] Inhale via nebulizer . 0 [...] 400 Units by mouth daily. 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 Deemed appropriate candidate. Dr. Rodriguez plans to move forward with SCS trial, recommending pre-op labs, including PT/INR due to hx of chronic intraspinal hemorrhage. documented in this encounter Plan of Treatment Upcoming Encounters Date Type Specialty Care Team Description 11/21/2022 Office Visit Cardiology Kath Carlin PA-C [address] [facility] [place] [address] Scheduled Orders Name Type Priority Associated Diagnoses Orde r Schedule CBC WITH WBC DIFFERENTIAL Lab Routine Pre-op testing Expected: 09/06/2022, Expires: 08/23/2023 COMPREHENSIVE METABOLIC PANEL Lab Routine Pre-op testing Expected: 09/06/2022, Expires: 08/23/2023 PT INR Lab STAT Pre-op testing Expected: 09/06/2022, Expires: 08/23/2023 Scheduled Procedures Name Priority Associated Diagnoses Date/Ti [...] as of this encounter Visit Diagnoses Diagnosis Arachnoiditis- Primary Meningitis, unspecified Lumbar radicular pain Thoracic or lumbosacral neuritis or radiculitis, unspecified Pre-op testing Preoperative examination, unspecified documented in this encounter Advance Directives Documents on File Type Date Recorded Patient Nuclear Power Plant Engineer Expl anation Advanced Directive Advanced Directive [...] Directive Advanced Directive Advanced Directive Care Teams Nut Dehydrator Operator Relationship Specialty Start Date End Date Farooq Rodríguez, DO [address] [place] [address] PCP - General Family Medicine 08/22/19 documented as of this encounter
--- OUTSIDE RECORDS SUMMARY | 2023-09-26 01:59 | External Medical Summary | Summary of Care ---
Author Name Unknown Organization [facility] Address [place] [address] Care Team Providers Care Risk Control Officer Name Role Phone Farooq Rodríguez DO Primary Care Provider [phone] Reason for Visit * Reason Onset Date Comments FYI 08/08/2022 Encounter Details Date Type Department Care Team Description 08/08/2022 Telephone Family Practice [facility] [address] [facility] [place] [address] Farooq Rodríguez DO [address] [facility] [place] [address] FYI Allergies No known active allergiesdocumented as of this encounter (statuses as of 08/09/2022) Medications Medication Sig Dispensed Refills Start Date [...] 400 Units by mouth daily. 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 * Telephone Encounter - Arminda Caldera LPN - 08/09/2022 12:56 PM EDT FYKeely * Telephone Encounter - HALINA Astorga - 08/08/2022 3:17 PM EDT Patient's called to notify Dr Rodríguez that the patient is applying for Social security disability. Social security will be contacting Dr Rodríguez for information. Please call the patient's with any questions. Thank you. documented in this encounter Plan of Treatment Upcoming Encounters Date Type Specialty Care Team Description 11/21/2022 Office Visit Cardiology Kath Carlin PA-C [address] [facility] [place] [address] Scheduled Procedures Name Priority Associated Diagnoses Date/Ti [...] Documents on File Type Date Recorded Patient Refining Still Operator Expl anation Advanced Directive Advanced Directive Advanced [...] Directive Advanced Directive Advanced Directive Care Teams Risk Control Officer Relationship Specialty Start Date End Date Farooq Rodríguez, DO [address] [place] [address] PCP - General Family Medicine 08/22/19 documented as of this encounter
--- OUTSIDE RECORDS SUMMARY | 2023-09-26 01:59 | External Medical Summary | Summary of Care ---
Author Name Unknown Organization [place] [address] Care Team Providers Care Showroom Sales Assistant Name Role Phone Farooq Rodríguez Primary Care Provider [phone] Reason for Visit * Reason Onset Date Comments Appointment 07/21/2022 Encounter Details Date Type Department Care Team Description 07/21/2022 Telephone [facility], [place] [address] [place] [address] Gayle Barrios PsyD [address] [place] [id number] Appointment Allergies No known active allergiesdocumented as of this encounter (statuses as of 07/21/2022) Medications Medication Sig Dispensed Refills Start Date [...] 400 Units by mouth daily. 0 Active [place]-3 Fatty Acids (OMEGA 3 500) 500 MG [...] Sunday, Sunday 45 Tablet 11 05/18/2022 Active Levothyroxine Sodium 100 MCG Oral Tablet (Euthyrox)Indicatio ns:Hypothyroidism Take by mouth 1 Tablet in the morning. (at least 30 min prior to breakfast or other meds). 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 Gayle Barrios - Please contact this patient and offer one of my available SCS evaluation slots on a Sunday at 9:30 AM LMOM for patient to call and schedule, provided call back number HALINA Telles documented in this encounter Plan of Treatment Upcoming Encounters Date Type Specialty Care Team Description 11/21/2022 Office Visit Cardiology Kath Carlin PA-C [address] [facility] [place] [address] Scheduled Procedures Name Priority Associated Diagnoses Date/Ti me COLONOSCOPY FLEXIBLE PROXIMA L DIAGNOSTIC Recall Encounter for screening colonoscopy Health Maintenance Due Date Last Done Comments Alb / Creat Ratio 1980 Cologuard: Ages 45-75 2007 FOBT: Ages 45-75 2007 Sigmoidoscopy: Ages 45-75 2007 COVID-19 Vaccine (3 - Booster for Pfizer series) 09/09/2021 04/09/2021, 03/19/2021 Depression Screening, Annual for Pts [...] Documents on File Type Date Recorded Patient Head Of Academic Technology Expl anation Advanced Directive Advanced Directive Advanced [...] Directive Advanced Directive Advanced Directive Care Teams Showroom Sales Assistant Relationship Specialty Start Date End Date Farooq Rodríguez, DO [address] [place] [address] PCP - General Family Medicine 08/22/19 documented as of this encounter
--- OUTSIDE RECORDS SUMMARY | 2023-09-26 01:59 | External Medical Summary | Summary of Care ---
Author Name Unknown Organization [facility] Address [place] [address] Care Team Providers Care Filling And Stapling Machine Operator Name Role Phone AntolinlorenleanneFarooq Belle PEÑA Primary Care Provider [phone] Reason for Referral * Evaluate & Treat - Unlimited Visits (Within 10 days (routine)) - Pending Review Specialty Diagnoses / Procedures Referred By Contac t Referred To Contact Psychology Diagnoses Lumbar radicular pain Arachnoiditis Rosa Bolton PA-C [address] [facility] [place] [address] Referral ID Status Reason Start Date Expiration Date Visits Requested Visits Authorized [id number] Pending Review Specialty Services Required 07/21/[phone] Question Answer Referral Priority Within 10 days (routine) Referral Location Referring within [facility] Reason for Referral: Pain Type of Service: Other (Comment) - SCS Reason for Visit * Evaluate & Treat - Unlimited Visits (Within 10 days (routine)) - Pending Review Specialty Diagnoses / Procedures Referred By Contac t Referred To Contact Pain Management / Pain Medicine Diagnoses Lumbar radiculopathy Arachnoiditis Sabrina Odom PA-C [address] [facility] [place] [id number] Referral ID Status Reason Start Date Expiration Date Visits Requested Visits Authorized [id number] Pending Review Specialty Services Required 06/27/[phone] Encounter Details Date Type Department Care Team Description 07/21/2022 Office Visit [facility], [address] [place] [address] Rosa Bolton PA-C [address] [facility] [place] [address] Lumbar radicular pain*; Arachnoiditis [...] 400 Units by mouth daily. 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 Pneumonia due to other virus not elsewhere class ified 12/24/2002 04/29/2021 documented as of this encounter (statuses as of 07/21/2022) Immunizations Name Administration Dates Next Due COVID-19 mRNA, LNP-s, No Pre serve, 2-Dose Series (Zoom) 04/09/2021,03/19/2021 Pneumococcal Conjugate Vacc, 13 Valent (Prevnar) [...] Progress Notes * Rosa Bolton PA-C - 07/21/2022 8:21 [...] three months Pericardial effusion 01/2003 idiopathic, at [facility] Pilonidal cyst without infection Past Surgical History: Procedure Laterality Date BRONCHOSCOPY W/ BRONCHIAL BIOPSY 2002 biopsy, open and bronchoscopy COLONOSCOPY, DIAGNOSTIC (RECTUM) 11/29/2012 COLONOSCOPY FLEXIBLE PROXIMAL DIAGNOSTIC performed by Cristy Dobbs DO at ENDOSCOPY [facility] COLONOSCOPY, DIAGNOSTIC (RECTUM) 11/26/2015 diverticulosis, repeat 10 yrs/COLONOSCOPY FLEXIBLE PROXIMAL DIAGNOSTIC performed by Cristy Dobbs DO at ENDOSCOPY [facility] DENTAL SURGERY PROCEDURE NEC Dental Surgery Procedure DRAINAGE OF HEART SAC 2002 [facility] REMOVAL OF WRIST LESION Current Outpatient Medications [...] Capsule Take 400 Units by mouth daily. Volborg-3 Fatty Acids (OMEGA 3 500) 500 MG [...] Office Visit Cardiology [facility] [address] [facility] [place] [address] Scheduled Procedures Name Priority Associated Diagnoses Date/Ti [...] Documents on File Type Date Recorded Patient Glost Kiln Operator Expl anation Advanced Directive Advanced Directive [...] Directive Advanced Directive Advanced Directive Care Teams Filling And Stapling Machine Operator Relationship Specialty Start Date End Date Farooq Rodríguez, DO [address] [place] [address] PCP - General Family Medicine 08/22/19 documented as of this encounter
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
--- OUTSIDE RECORDS SUMMARY | 2023-09-26 01:59 | External Medical Summary | Summary of Care ---
Author Name Unknown Organization [place] [address] Care Team Providers Care Traffic Administrator Name Role Phone Farooq Rodríguez DO Primary Care Provider [phone] Reason for Visit * Reason Onset Date Comments Appointment 08/01/2022 Encounter Details Date Type Department Care Team Description 08/01/2022 Telephone [facility], [place] [address] [place] [address] Gayle Barrios PsyD [address] [id number] Appointment Allergies No known active allergiesdocumented as of this encounter (statuses as of 08/01/2022) Medications Medication Sig Dispensed Refills Start Date [...] 400 Units by mouth daily. 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 If call is returned and patient needs to change demographics or insurance please transfer to [phone]. If patient has scheduling concerns please transfer to [phone]. documented in this encounter Plan of Treatment Upcoming Encounters Date Type Specialty Care Team Description 08/04/2022 Telemedicine Psychology Gayle Barrios PsyD [address] [place] [address] 11/21/2022 Office Visit Cardiology Kath Carlin PA-C [address] [facility] [place] [address] Scheduled Procedures Name Priority Associated Diagnoses Date/Ti [...] Documents on File Type Date Recorded Patient Detasseler Expl anation Advanced Directive Advanced Directive Advanced [...] Directive Advanced Directive Advanced Directive Care Teams Traffic Administrator Relationship Specialty Start Date End Date Farooq Rodríguez, DO [address] [place] [address] PCP - General Family Medicine 08/22/19 documented as of this encounter
--- OUTSIDE RECORDS SUMMARY | 2023-09-26 02:00 | External Medical Summary | Summary of Care ---
Author [place] [address] Care Team Providers Care Community Health Nurse Staff Name Role Phone AntolinFarooq roger Belle PEÑA Primary Care Provider [phone] Reason for Referral * Evaluate & Treat - Unlimited Visits (Within 10 days (routine)) - Pending Review Specialty Diagnoses / Procedures Referred By Contac carina Referred To Contact Pain Management / Pain Medicine Diagnoses Lumbar radiculopathy Arachnoiditis Sabrina Odom, PA-C [address] [place] [address] Referral ID Status Reason Start Date Expiration Date Visits Requested Visits Authorized [id number] Pending Review Specialty Services Required 06/27/[phone] Question Answer Referral Priority Within 10 days (routine) Reason for referral? Interventional Pain Management - (Injection) What is the preferred location to have this test performed? [facility] Comments Referral for spinal cord stimulator trial Patient Name: Placido Dean Date of : [...] pain if not done previously. Fax No. [facility] [place] [phone] or contact dental front office assistant [phone] Fax No. [facility] [phone] or contact dental front office assistant [phone] Fax No. [facility] [phone] or contact dental front office assistant [phone] Reason for Visit * Reason Comments NEW PATIENT * Evaluate & Treat - Unlimited Visits (Within 10 days (routine)) - Pending Review Specialty Diagnoses / Procedures Referred By Marlon lim Referred To Contact Neuro/Ortho Surgery - Spine. / Neurological Surgery Diagnoses Lumbar radicular pain Arachnoiditis Rosa Bolton PA-C [address] [place] [address] Sanya Valerio MD [address] [place] [facility] [place] [address] Referral ID Status Reason Start Date Expiration Date Visits Requested Visits Authorized Pending Review Specialty Services Required 05/18/[phone] Encounter Details Date Type Department Care Team Description 06/27/2022 Office Visit Neurosurgery, [place] [address] [place] [address] Sanya Valerio MD [address] [place] [facility] [place] [address] Lumbar radiculopathy*; Arachnoiditis Allergies No known active allergiesdocumented as of this encounter (statuses as of 06/27/2022) Medications Medication Sig Dispensed Refills Start Date End Date Status ASPIRIN 81 MG PO TABS One daily 0 Active ZYRTEC ALLERGY 10 MG PO TABS one daily 0 Active ALBUTEROL SULFATE (2.5 MG/3ML) 0.083% IN NEBU Inhale via nebulizer . 0 Active HM VITAMIN D3 2000 UNITS PO CAPSIndications:Vit ahzel D deficiency 1 CAPSULE DAILY 0 03/22/2014 [...] 400 Units by mouth daily. 0 Active [place]-3 Fatty Acids (OMEGA 3 500) 500 MG CAPS Take by mouth. 0 Active Azelastine HCl 0.1 % nasal sprayIndications:Ch ronic rhinitis USE 2 SPRAY(S) IN EACH NOSTRIL TWICE DAILY 90 mL 1 04/03/2019 Active Lisinopril 40 MG Oral TabletIndications:H TN, goal below 140/90 Take 1 tablet by mouth once daily 90 Tab 3 07/04/2021 Active Meclizine HCl 25 MG Oral Tablet [...] other meds). 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 Pneumonia due to other virus not elsewhere class ified 12/24/2002 04/29/2021 documented as of this encounter (statuses as of 06/27/2022) Immunizations Name Administration Dates Next Due COVID-19 [...] Sign Reading Time Taken Comments Blood Pressure 126/64 06/27/2022 1:46 PM EDT Pulse 82 06/27/2022 1:46 PM EDT Temperature 36.2 C (97.2 F) 06/27/2022 1:46 PM ED T Respiratory Rate - - Oxygen Saturation 99% 06/27/2022 1:46 PM EDT Inhaled Oxygen Concentration - - Weight 122.4 kg (269 lb 12.8 oz) 06/27/2022 1:46 PM EDT Height - - Body Mass Index 41.02 04/25/2022 7:50 AM EDT documented in this encounter Plan of Treatment Upcoming Encounters Date Type Specialty Care Team Description 11/21/2022 Office Visit Cardiology Kath Carlin PA-C [address] [facility] [place] [address] Scheduled Procedures Name Priority Associated Diagnoses Date/Ti me COLONOSCOPY FLEXIBLE PROXIMA L DIAGNOSTIC Recall Encounter for screening colonoscopy Scheduled Referrals Name Type Priority Associated Diagnoses Orde r Schedule PAIN MEDICINE REFERRAL OP Referral Within 10 days (routine) Lumbar radiculopathy Arachnoiditis Ordered: 06/27/2022 Health Maintenance Due Date Last Done Comments Cologuard: Ages 45-75 2007 FOBT: Ages 45-75 [...] Documents on File Type Date Recorded Patient Binder Stripper Hand Expl anation Advanced Directive Advanced Directive Advanced [...] Directive Advanced Directive Advanced Directive Care Teams Community Health Nurse Staff Relationship Specialty Start Date End Date Farooq Rodríguez, DO [address] [place] [address] PCP - General Family Medicine 08/22/19 documented as of this encounter
--- OUTSIDE RECORDS SUMMARY | 2023-09-26 02:00 | External Medical Summary | Summary of Care ---
Author Name Unknown Organization [facility] [place] [address] Care Team Providers Care Java J2Ee Application Developer Name Role Phone Farooq Rodríguez DO Primary Care Provider [phone] Reason for Visit * Reason Comments eRx-Medication Refill Encounter Details Date Type Department Care Team Description 07/03/2022 Refill Cardiology, [facility] [address] [place] [id number] Krystal Lam PA-C 132 [facility] [place] [address] HTN, goal below 140/90 Allergies No known active allergiesdocumented as of this encounter (statuses as of 07/04/2022) Medications Medication Sig Dispensed Refills Start Date [...] 400 Units by mouth daily. 0 Active [place]-3 Fatty Acids (OMEGA 3 500) 500 [...] 1 05/31/2022 Active Lisinopril 40 MG Oral TabletIndications :HTN, goal below 140/90 Take 1 tablet by mouth once daily 90 Tablet 3 07/04/2022 Active Lisinopril 40 MG Oral TabletIndications :HTN, goal below 140/90 Take 1 tablet by mouth once daily 90 Tab 3 07/04/2021 Discontinued documented as of this encounter (statuses as of 07/04/2022) Active Problems Problem Noted Date Body mass [...] as of this encounter (statuses as of 07/04/2022) Resolved Problems Problem Noted Date Resolved Date Encounter for surveillance of abnormal nevi 03/2004/29/2021 Dyslipidemia, goal LDL below 100 06/01/2014 12/08/2015 Hypoactive thyroid 01/07/2013 12/11/2016 Bronchiectasis 04/18/2003 06/12/2017 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 Pneumonia due to other virus not elsewhere class ified 12/24/2002 04/29/2021 documented as of this encounter (statuses as of 07/04/2022) Immunizations Name Administration Dates Next Due COVID-19 [...] Telephone Encounter - Krystal Lam PA-C - 07/04/2022 11:33 AM EDT Signed Prescriptions: Disp Refills Lisinopril 40 MG Oral Tablet 90 Tab*3 Sig: Take 1 tablet by mouth once daily Authorizing Provider: KRYSTAL LAM * Telephone Encounter - Donna Mayes CMA - 07/04/2022 9:14 AM EDT Pending Prescriptions: Disp Refills Lisinopril 40 MG Oral Tablet 90 Tab*3 Sig: Take 1 tablet by mouth once daily * Telephone Encounter - Donna Mayes CMA - 07/04/2022 9:13 AM EDT Did you pend patient's preferred pharmacy and medication before forwarding?yes Pharmacy: [facility] [address] [address] Pending Prescriptions: Disp Refills Lisinopril 40 MG Oral Tablet 90 Tab*3 Sig: Take 1 tablet by mouth once daily Last Visit: 05/18/2022 (in office), Visit date not found (telemedicine) Next Visit: 11/21/2022 If no future appointments scheduled, and last appointment is greater than a year ago, please schedule patient for a follow-up appointment Last date the medication was ordered: 07/04/21 Is this request for a controlled substance?No Urine Drug Screen:No results found for this or any previous visit. Patient Phone Numbers Labs: Lab Results Component Value Date/Time CREAT 1.2 05/30/2022 07:40 AM CREAT 1.1 11/21/2019 09:45 AM POTASSIUM 4.1 05/30/2022 07:40 AM POTASSIUM 4.3 11/21/2019 09:45 AM TSH 4.89 (H) 05/30/2022 07:40 AM TSH 3.60 11/21/2019 09:45 AM LDLCALC 102 01/17/2022 11:31 AM LDLCALC 78 02/24/2020 07:57 AM LDLDIRECT NOT APPLICABLE 02/24/2020 07:57 AM LDLDIRECT 136 (H) 05/12/2011 02:10 PM ALT 66 (H) 05/30/2022 07:40 AM ALT 33 11/21/2019 09:45 AM HGBA1C 5.3 05/30/2022 07:40 AM documented in this encounter Plan of Treatment Upcoming Encounters Date Type Specialty Care Team Description 11/21/2022 Office Visit Cardiology Krystal Lam PA-C [address] [facility] [place] [address] Scheduled Procedures Name Priority Associated Diagnoses Date/Ti [...] Unspecified essential hypertension documented in this encounter Advance Directives Documents on File Type Date Recorded Patient Catalytic Case Operator Expl anation Advanced Directive Advanced Directive [...] Directive Advanced Directive Advanced Directive Care Teams Java J2Ee Application Developer Relationship Specialty Start Date End Date Farooq Rodríguez, DO [address] [place] [address] PCP - General Family Medicine 08/22/19 documented as of this encounter
--- OUTSIDE RECORDS SUMMARY | 2023-09-26 02:00 | External Medical Summary | Summary of Care ---
Author Name Unknown Organization [facility] [place] [address] Care Team Providers Care Drill Press Operator Helper Name Role Phone Farooq Rodríguez DO Primary Care Provider [phone] Encounter Details Date Type Department Care Team Description 06/15/2022 External Data Patient Risk Medial Allergies No known active allergiesdocumented as of this encounter (statuses as of 06/22/2022) Medications Medication Sig Dispensed Refills Start Date [...] 400 Units by mouth daily. 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 Pneumonia due to other virus not elsewhere class ified 12/24/2002 04/29/2021 documented as of this encounter (statuses as of 06/22/2022) Immunizations Name Administration Dates Next Due COVID-19 mRNA, LNP-s, No Pre serve, 2-Dose Series ([place]os) 04/09/2021,03/19/2021 Pneumococcal Conjugate Vacc, 13 Valent (Prevnar) [...] Encounters Date Type Specialty Care Team Description 06/27/2022 Office Visit Neurological Surgery Sanya Valerio MD [address] [facility] [place] [address] 11/21/2022 Office Visit Cardiology Kath Carlin PA-Annika [address] [facility] [place] [address] Scheduled Procedures Name Priority Associated Diagnoses Date/Ti [...] Documents on File Type Date Recorded Patient Merchandising Lead Expl anation Advanced Directive Advanced Directive Advanced [...] Directive Advanced Directive Advanced Directive Care Teams Drill Press Operator Helper Relationship Specialty Start Date End Date Farooq Rodríguez, DO [address] [place] [address] PCP - General Family Medicine 08/22/19 documented as of this encounter
--- OUTSIDE RECORDS SUMMARY | 2023-09-26 02:00 | External Medical Summary | Summary of Care ---
Author Name Unknown Organization [place] [address] Care Team Providers Care Natural Remedy Consultant Name Role Phone Farooq Rodríguez DO Primary Care Provider [phone] Encounter Details Date Type Department Care Team Description 06/15/2022 Orders Only Outcomes Research Department [address] [place] [address] [place] [facility] Other*[id number] Allergies No known active allergiesdocumented as of this encounter (statuses as of 06/15/2022) Medications Medication Sig Dispensed Refills Start Date [...] 400 Units by mouth daily. 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 Pneumonia due to other virus not elsewhere class ified 12/24/2002 04/29/2021 documented as of this encounter (statuses as of 06/15/2022) Immunizations Name Administration Dates Next Due COVID-19 [...] Office Visit Neurological Surgery Sanya Valerio MD [facility] [address] [facility] [place] [address] 11/21/2022 Office Visit Cardiology Kath Carlin PA-C [address] [facility] [place] [address] Scheduled Orders Name Type Priority Associated Diagnoses Orde r Schedule MYCODE SUBSEQUENT ADULT Lab Routine [facility] Research Other*[id number] Every 6 Months for 2 Occurrences starting 06/15/2022 until 07/05/2023 Scheduled Procedures Name Priority Associated Diagnoses Date/Ti [...] this encounter Visit Diagnoses Diagnosis My[facility] Other*[id number] documented in this encounter Advance Directives Documents on File Type Date Recorded Patient Windows Server Support Technician Expl anation Advanced Directive Advanced Directive Advanced [...] Directive Advanced Directive Advanced Directive Care Teams Natural Remedy Consultant Relationship Specialty Start Date End Date Farooq Rodríguez, DO [address] [place] [address] PCP - General Family Medicine 08/22/19 documented as of this encounter
--- OUTSIDE RECORDS SUMMARY | 2023-09-26 02:01 | External Medical Summary | Summary of Care ---
Author Name Unknown Organization [facility] Address [place] [address] Care Team Providers Care Aluminum Pourer Name Role Phone Farooq Rodríguez DO Primary Care Provider [phone] Reason for Visit * Reason Onset Date Comments Test Results 06/05/2022 Encounter Details Date Type Department Care Team Description 06/05/2022 Telephone Cardiology, [facility] [address] [place] [id number] Kath Carlin PA-C [address] [place] [address] Test Results Allergies No known active allergiesdocumented as of this encounter (statuses as of 06/05/2022) Medications Medication Sig Dispensed Refills Start Date End Date Status ASPIRIN 81 MG PO TABS One daily 0 Active ZYRTEC ALLERGY 10 MG PO TABS one daily 0 Active ALBUTEROL SULFATE (2.5 MG/3ML) 0.083[facility] Inhale via nebulizer . 0 Active [...] 400 Units by mouth daily. 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 Lab order placed. * Telephone Encounter - Lynn Holland RN - 06/05/2022 11:35 AM EDT ----- Message from Kath Carlin PA-C sent at 06/02/2022 7:01 PM EDT ----- Minimally elevated liver test. Avoid excessive tylenol and alcohol use. Repeat LFT's in 6 weeks. Hbg A1C ok documented in this encounter Plan of Treatment Upcoming Encounters Date Type Specialty Care Team Description 06/06/2022 Office Visit Family Medicine Samantha Soto PA-C [address] [place] [address] 06/27/2022 Office Visit Neurological Surgery Sanya Valerio MD [address] [facility] [place] [address] 11/21/2022 Office Visit Cardiology Kath Carlin PA-C 132 [facility] [place] [address] Scheduled Orders Name Type Priority Associated Diagnoses Orde r Schedule HEPATIC FUNCTION PANEL Lab Routine Elevated ALT measurement Expected: 07/17/2022 (Approximate), Expires: 06/05/2023 Scheduled Procedures Name Priority Associated Diagnoses Date/Ti [...] as of this encounter Visit Diagnoses Diagnosis Elevated ALT measurement- Primary Nonspecific elevation of levels of transaminase or lactic acid dehydrogenase (LDH) documented in this encounter Advance Directives Documents on File Type Date Recorded Patient Candy Wrapping Machine Operator Expl anation Advanced Directive Advanced Directive [...] Directive Advanced Directive Advanced Directive Care Teams Aluminum Pourer Relationship Specialty Start Date End Date Farooq Rodríguez, [address] [place] [address] PCP - General Family Medicine 08/22/19 documented as of this encounter
--- OUTSIDE RECORDS SUMMARY | 2023-09-26 02:01 | External Medical Summary | Summary of Care ---
Author Name Unknown Organization [facility] Address [place] [address] Care Team Providers Care Hand Tapper Name Role Phone AntolinFarooq roger Primary Care Provider [phone] Encounter Details Date Type Department Care Team Description 05/31/2022 Orders Only Family Practice [facility] [place] [address] [facility] [place] [address] Samantha Soto PA-C [address] [facility] [place] [address] Hypothyroidism Allergies No known active allergiesdocumented as of this encounter (statuses as of 05/31/2022) Medications Medication Sig Dispensed Refills Start Date [...] 400 Units by mouth daily. 0 Active [place]-3 Fatty Acids (OMEGA 3 500) 500 MG CAPS Take by mouth. 0 Acti ve Azelastine HCl 0.1 % nasal sprayIndications: Chronic rhinitis USE 2 SPRAY(S) IN EACH NOSTRIL TWICE DAILY 90 mL 1 04/03/2019 Active Lisinopril 40 MG Oral TabletIndications :HTN, [...] other meds). 30 Tablet 1 05/31/2022 Active Levothyroxine Sodium 88 MCG Oral Tablet (Euthyrox)Indicat ions:Hypothyroidi sm Take by mouth 1 Tablet in the morning. (at least 30 min prior to breakfast or other meds). 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 Pneumonia due to other virus not elsewhere class ified 12/24/2002 04/29/2021 documented as of this encounter (statuses as of 05/31/2022) Immunizations Name Administration Dates Next Due COVID-19 [...] Visit Family Medicine Samantha Soto PA-C [address] [facility] [place] [address] 06/27/2022 Office Visit Neurological Surgery Sanya Valerio MD [address] [facility] [place] [address] 11/21/2022 Office Visit Cardiology Kath Carlin PA-C [address] [facility] [place] [address] Scheduled Orders Name Type Priority Associated Diagnoses Orde r Schedule TSH Lab Routine Hypothyroidism Expected: 07/01/2022 (Approximate), Expires: 05/31/2023 T4, FREE Lab Routine Hypothyroidism Expected: 07/01/2022 (Approximate), Expires: 05/31/2023 Scheduled Procedures Name Priority Associated Diagnoses Date/Ti [...] as of this encounter Visit Diagnoses Diagnosis Hypothyroidism Unspecified hypothyroidism documented in this encounter Advance Directives Documents on File Type Date Recorded Patient Supervisory Air Intercept Controller Expl anation Advanced Directive Advanced Directive [...] Directive Advanced Directive Advanced Directive Care Teams Hand Tapper Relationship Specialty Start Date End Date Farooq Rodríguez, DO [address] [place] [address] PCP - General Family Medicine 08/22/19 documented as of this encounter
--- OUTSIDE RECORDS SUMMARY | 2023-09-26 02:01 | External Medical Summary | Summary of Care ---
Author Name Unknown Organization [place] [address] Care Team Providers Care Middle [employer] Counselor Name Role Phone AntolinFarooq roger Primary Care Provider [phone] Reason for Visit * Reason Comments Re-Check Encounter Details Date Type Department Care Team Description 06/06/2022 Office Visit Family Practice [facility] [address] [facility] [place] [address] Samantha Soto PA-C [address] [facility] [place] [address] Chronic right-sided low back pain, unspecified whether sciatica present* Allergies No known active allergiesdocumented as of this encounter (statuses as of 06/06/2022) Medications Medication Sig Dispensed Refills Start Date [...] 400 Units by mouth daily. 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 Pneumonia due to other virus not elsewhere class ified 12/24/2002 04/29/2021 documented as of this encounter (statuses as of 06/06/2022) Immunizations Name Administration Dates Next Due COVID-19 [...] Reading Time Taken Comments Blood Pressure 130/78 06/06/2022 7:11 AM EDT Pulse 68 06/06/2022 7:11 AM EDT Temperature 36.9 C (98.4 F) 06/06/2022 7:11 AM ED T Respiratory Rate 18 06/06/2022 7:11 AM EDT Oxygen Saturation 98% 06/06/2022 7:11 AM EDT Inhaled Oxygen Concentration - - Weight 123.1 kg (271 lb 6.4 oz) 06/06/2022 7:11 AM EDT Height - - Body Mass Index 41.27 04/25/2022 7:50 AM EDT documented in this encounter Progress Notes * Samantha Soto PA-C - 06/06/2022 7:22 AM EDT CC: back pain Nursing Notes: Arminda Caldera, REINA 06/06/22 0721 Signed Placido Dean presents for 6 week recheck. Medications & HM reviewed. HPI: Placido Dean is a 61 year old male who presents with symptoms including back pain for close toa year. Pt here today for another follow up. Pt states pain unchanged. Resides around a 2/10 at baseline. Pt can not walk much. thinks he is worse than he was six weeks ago. She reports he is now using his cane all the time. Pt reports occasional sciatic pain in bed at night, Seems to bother both legs. Pt denies numbness/tingling of extremities, saddle paraesthesias, loss of bowel or bladder habits. Pt has completed physical therapy. Pt reports he is getting by on current motrin. Review of Systems: CONSTITUTIONAL: No generalized weakness, No fatigue, No fevers, sweats, or chills PULMONARY: No cough, sputum, or hemoptysis, No wheezing, No shortness or breath and No recent change in breathing CARDIOVASCULAR: No chest pain, No shortness of breath, No dyspnea on exertion, No edema, No palpitations and No syncope GASTROINTESTINAL: No abdominal pain, No nausea, vomiting, diarrhea,, No constipation ROS: Please see HPI for pertinent positives and negatives, otherwise pt denies additional complaints. 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 Pilonidal cyst without infection Past Surgical History: Procedure Laterality Date BRONCHOSCOPY W/ BRONCHIAL BIOPSY 2002 biopsy, open and bronchoscopy COLONOSCOPY, DIAGNOSTIC (RECTUM) 11/29/2012 COLONOSCOPY FLEXIBLE PROXIMAL DIAGNOSTIC performed by Cristy Dobbs DO at ENDOSCOPY [facility] COLONOSCOPY, DIAGNOSTIC (RECTUM) 11/26/2015 diverticulosis, repeat 10 yrs/COLONOSCOPY FLEXIBLE PROXIMAL DIAGNOSTIC performed by Cristy Dobbs DO at ENDOSCOPY [facility] D[facility] SURGERY PROCEDURE NEC Dental Surgery Procedure DRAINAGE OF HEART SAC [address] [facility] REMOVAL OF WRIST LESION Social History Tobacco Use Smoking status: Never Smoker Smokeless tobacco: Former User Types: Chew Tobacco comment: quit Substance Use Topics Alcohol use: Yes Alcohol/week: 5.0 standard drinks Types: 6 12 oz of beer per week Vaping/E-Cigarette Use Vaping/E-Cigarette Use Never User Vaping/E-Cigarette Substances Vaping/E-Cigarette Devices Social History Substance and Sexual Activity Drug Use No Family History Problem Relation Age of Onset Dementia Father Other (Other) Brother accident Genitourinary Disorder Father stones Hypertension Father No Past Hx Mother Cancer Grandmother (Paternal) pancreas Other (Other) Grandfather (Paternal) blood poisoning Lung Disorder Grandfather (Maternal) Alcohol and Other Disorders Associated Grandfather (Maternal) No Past Hx Grandmother (Maternal) Immunization History Administered Date(s) Administered COVID-19 mRNA, LNP-s, No Preserve, 2-Dose Series ([employer]) 03/19/2021, 04/09/2021 Pneumococcal Conjugate Vacc, 13 Valent (Prevnar) 08/19/2010 Pneumococcal Conjugate Vaccine, 7 Valent 10/15/2002 Pneumococcal Polysaccharide PPV23 (Pneumovax) 08/19/2010 Seasonal Influenza, Quadrivalent, No Preserve, IM 08/03/2016, 08/20/2019, 08/18/2020 Seasonal Influenza, Split, IIV3, With Preserve, Inj 10/15/2002, 09/03/2003, 08/26/2009, 08/14/2012, 08/06/2013, 08/03/2014, 08/03/2015, 07/20/2018 TD, Preservative Free 10/27/2020 TDAP (age 11 and older)(Adacel) 09/13/2009 Zoster Vaccine Recombinant (Shingrix) 02/17/2019, 04/23/2019 Current Outpatient Medications Medication Sig Dispense Refill [...] Capsule Take 400 Units by mouth daily. Howe-3 Fatty Acids (OMEGA 3 500) 500 MG CAPS Take by mouth. Azelastine HCl 0.1 % nasal spray USE 2 SPRAY(S) IN EACH NOSTRIL TWICE DAILY 90 mL 1 Lisinopril 40 MG Oral Tablet Take 1 tablet by mouth once daily 90 Tab 3 Meclizine HCl 25 MG Oral Tablet (Antivert) [...] breakfast or other meds). 30 Tablet 1 No current facility-administered medications for this visit. Review of patient's allergies indicates: No Known Allergies Patient's past medical, surgical, family, and social history were reviewed. Medications, allergies, immunizations, and health care maintenance screenings were also reviewed. Physical exam: BP 130/78 (BP Site: Left Arm, BP Position: Sitting, BP Cuff Size: Large) | Pulse 68 | Temp 36.9 C(98.4 F) (Tympanic) | Resp 18 | Wt 123.1 kg (271 lb 6.4 oz) | SpO2 98% | BMI 41.27 kg/m | BSA 2.43 m GENERAL: alert, healthy, no distress, comfortable and cooperative EYES: EOMI, Conjunctiva are pink and non-injected, sclera clear Ears: External ears normal, hearing intact Respiratory: No coughing noted. No audibile wheezing or stridor. Pt speaking in complete unlabored sentences. BACK: Normal DTRs of patella and ankles bilaterally, Left great than right weakness, (recent left knee injection), walk adjusted for use of weakness and cane. SKIN: skin color appears normal, no rashes or significant lesions Assessment/Plan: Chronic right-sided low back pain, unspecified whether sciatica present (Primary) Continue motrin. Recommend adding a single tylenol to his regularly scheduled nsaid. Recommended adding additional dose each morning. 400mg Motrin AM and PM with 500mg tylenol Keep upcoming specialty appt Patient goals for plan of care were discussed. Follow Up: Recommend re-evaluation if not improving or if symptoms worsen. Samantha Soto PA-C [address] [address] documented in this encounter Nursing Notes * Arminda Caldera LPN - 06/06/2022 7:06 AM EDT Placido Dean presents for 6 week recheck. Medications & HM reviewed. documented in this encounter Plan of Treatment Upcoming Encounters Date Type Specialty Care Team Description 06/27/2022 Office Visit Neurological Surgery Sanya Valerio MD [address] [facility] [place] [address] 11/21/2022 Office Visit Cardiology Kath Carlin PA-C [address] [facility] [place] [address] Scheduled Procedures Name Priority Associated Diagnoses Date/Ti [...] of this encounter Visit Diagnoses Diagnosis Chronic right-sided low back pain, unspecified whether sciatica present- Primary documented in this encounter Advance Directives Documents on File Type Date Recorded Patient 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
--- OUTSIDE RECORDS SUMMARY | 2023-09-26 02:02 | External Medical Summary | Summary of Care ---
Author Name Unknown Organization [facility] [place] [address] Care Team Providers Care Oyster Unloader Name Role Phone Farooq Rodríguez Primary Care Provider [phone] Reason for Visit * Reason Comments Follow Up L knee Encounter Details Date Type Department Care Team Description 05/30/2022 Office Visit [facility] [address] [facility] [place] [address] Nima Cox DO [address] [facility] [place] [address] Primary osteoarthritis of left knee* Allergies No known active allergiesdocumented as of this encounter (statuses as of 05/30/2022) Medications Medication Sig Dispensed Refills Start Date [...] 400 Units by mouth daily. 0 Active [place]-3 Fatty Acids (OMEGA 3 500) 500 MG [...] the morning. 90 Tablet 3 02/14/2022 Active Levothyroxine Sodium 88 MCG Oral Tablet (Euthyrox)Indicatio ns:Hypothyroidism Take by mouth 1 Tablet in the morning. (at least 30 min prior to breakfast or other meds). 90 Tablet 1 03/15/2022 Active Amitriptyline HCl 25 MG Oral Tablet [...] Sunday, Sunday 45 Tablet 11 05/18/2022 Active Hospital, Clinic, or Other Facility Administered Medication Ordered Dose Route Frequency Start Date End Date Status lidocaine 1% 1 mL - triamcinolone acetonide 40 mg/mL 1 mL inj 2 mLIndications:Primary osteoarthritis of left knee 2 mL IJ ONCE 05/30/2022 05/30/20 Ended documented as of this encounter (statuses as of 05/30/2022) Active Problems Problem Noted Date Chest pain [...] as of this encounter (statuses as of 05/30/2022) Resolved Problems Problem Noted Date Resolved Date Encounter for surveillance of abnormal nevi 03/2004/29/2021 Dyslipidemia, goal LDL below 100 06/01/2014 12/08/2015 Hypoactive thyroid 01/07/2013 12/11/2016 Bronchiectasis 04/18/2003 06/12/2017 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 Pneumonia due to other virus not elsewhere class ified 12/24/2002 04/29/2021 documented as of this encounter (statuses as of 05/30/2022) Immunizations Name Administration Dates Next Due COVID-19 [...] Progress Notes * Nima Cox DO - 05/30/2022 7:53 AM EDT Placido Dean [id number] Placido Dean is a 61 year old male who presents for f/u to [facility] for left knee injury/pain. 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 [place]-3 Fatty Acids (OMEGA 3 500) 500 MG [...] Tablet in the morning. 90 Tablet 3 Levothyroxine Sodium 88 MCG Oral Tablet (Euthyrox) Take by mouth 1 Tablet in the morning. (at least 30 min prior to breakfast or other meds). 90 Tablet 1 Amitriptyline HCl 25 MG [...] on Sunday, Sunday, Sunday 45 Tablet 11 No current facility-administered medications for this visit. Physical Exam General: in no acute distress Mood and Affect: normal Gait and Station: mildly antalgic Peripheral pulses: normal in affected extremity (s) Skin examination: normal on affect extremity (s) Coordination: normal Sensation: normal on affected extremity (s) Knee Exam, bilateral Alignment: normal Bilateral Effusion: negative Bilateral Palpation: tenderness to palpation medial > lateral jt line on the left ROM: R - Flexion - 110 degrees, Extension - 0 degrees L - Flexion - 110 degrees, Extension -0 degrees R- Strength: Extension - 5/5 Flexion - 5/5 L - Strength: Extension - 5/5 Flexion - 5/5 Ligament tests/stability: Grossly normal Meniscus tests: Cassidy - negative Bilateral Popliteal mass - negative Bilateral Patellar tests: Olman's negative Left Grind negative Left Assessment and Plan: will start do IA steroids then f/u 2 weeks, discussed MADRID and PRP again as wifein room Nima Cox, Primary Care Sports Medicine Orthopaedics [address] [address] Procedure note (knee injection), left : Time [...] 40 mg/mL 1 mL inj 2 mL Patient tolerated procedure with no significant bleeding [...] documented in this encounter Nursing Notes * Velma Antunez ATC - 05/30/2022 7:58 AM EDT Follow up Patient Follow up: Knee Side: left Date of last visit: 02/28/22 Improvement since last office visit: 0 percent. Relief for approx 2 days Prior Treatment: Injection and Physical Therapy PT did not help. Stated made worse Here for Test Results: NO Goals for this appointment: L knee injection Maureen Hernandez ATC documented in this encounter Plan of Treatment Upcoming Encounters Date Type Specialty Care Team Description 06/06/2022 Office Visit [facility] [address] 06/27/2022 Office Visit Neurological Surgery Sanya Valerio MD [address] [place] [address] [place] [address] 11/21/2022 Office Visit Cardiology Kath Carlin PA-C [address] [facility] [place] [address] Scheduled Orders Name Type Priority Associated Diagnoses Orde r Schedule INJECT MAJOR JX/BURSA W/O US GUIDE Procedures Routine Primary osteoarthritis of left knee Ordered: 05/30/2022 Scheduled Procedures Name Priority Associated Diagnoses Date/Ti [...] Additional history exists GFR - Renal Function 03/14/2023 03/14/2022, 03/21/2021, 12/22/2020, Additional history exists TSH FOR THYROID MEDICATION MONITORING YEARLY 03/14/2023 03/14/2022, 12/22/2020, 11/21/2019, Additional history exists Diabetes Screening 03/14/2025 03/14/2022, 0 03/21/2021, 12/22/2020, Additional history exists Colonoscopy: Ages 45-75 11/26/2025 [...] 2 mL 2 mL, Injection, ONCE, On Sun05/30/22 at 0900, For 1 dose, Lidocaine 1% 1mL Triamcinolone Acetonide 40 mg/mL 1 mL (Final concentration = 20 mg/mL) REFRIGERATE and SHAKE WELL Given 05/30/2022 8:49 AM EDT 2 mL Knee Left documented in this encounter Advance Directives Documents on File Type Date Recorded Patient Russian Rubber Expl anation Advanced Directive Advanced Directive Advanced [...] Directive Advanced Directive Advanced Directive Care Teams Oyster Unloader Relationship Specialty Start Date End Date Farooq Rodríguez, DO [address] [place] [address] PCP - General Family Medicine 08/22/19 documented as of this encounter
--- OUTSIDE RECORDS SUMMARY | 2023-09-26 02:02 | External Medical Summary ---
Author Name Unknown Address Unknown Organization K01:[facility] [address] [place] [address] [place] [address] Laboratory Report Ordering Provider Test Date Status JEREMY NETTLES 05/30/2022 07:40:26 Final Observation Date Value Abnormality Reference (Units ) Status T4, Free 05/30/2022 07:40:26 1.3 0.9-1.7 (n g/dL) Final Performing Location [facility] - [address] [place] [address]
--- OUTSIDE RECORDS SUMMARY | 2023-09-26 02:02 | External Medical Summary ---
Author Name Unknown Address Unknown Organization K0G:[facility] [place] [facility] - [address] [place] [address] Laboratory Report Ordering Provider Test Date Status CAROLE RICE 05/30/2022 07:40:26 Final Observation Date Value Abnormality Reference (Units ) Status BUN 05/30/2022 07:40:26 18 6-20 (mg/dL) Final Creatinine 05/30/2022 07:40:26 1.2 0.6-1.2 (mg/dL) Final Glomerular filtration rate/1.73 sq M.predicted [Volume Rate/Area] in Serum, Plasma or Blood by Creatinine-based formula (CKD-EPI) 05/30/2022 07:40:26 73 >=60 (mL/min) Final eGFR is calculated based on the CKD-EPI 2020 equation Sodium 05/30/2022 07:40:26 142 135-146 (m mol/L) Final Potassium 05/30/2022 07:40:26 4.1 3.5-5.1 (m mol/L) Final Cl 05/30/2022 07:40:26 101 98-107 (mm ol/L) Final CO2 05/30/2022 07:40:26 27 22-32 (mmo l/L) Final Anion gap 05/30/2022 07:40:26 14 7-15 (mmol /L) Final Glucose 05/30/2022 07:40:26 101 70-120 (mg /dL) Final Albumin 05/30/2022 07:40:26 4.6 3.8-5.0 (g /dL) Final AST (Aspartate aminotransferase) 05/30/2022 07:40:26 32 10-50 (U/L) Fin al Alk Phos 05/30/2022 07:40:26 72 35-130 (U/ L) Final Bilirubin, Total 05/30/2022 07:40:26 0.6 <=1 .2 (mg/dL) Final Calcium 05/30/2022 07:40:26 9.7 8.4-10.2 ( mg/dL) Final Protein 05/30/2022 07:40:26 6.7 6.0-8.3 (g /dL) Final ALT (Alanine aminotransferase) 05/30/2022 07:40:26 66 Above high normal 10-50 (U/L) Final Performing Location [facility] [address] [facility] [address]
--- OUTSIDE RECORDS SUMMARY | 2023-09-26 02:02 | External Medical Summary | Summary of Care ---
Author Name Unknown Organization [place] [address] Care Team Providers Care Pv Design Engineer Name Role Phone AntolinFarooq roger Primary Care Provider [phone] Reason for Referral * Evaluate & Treat - Unlimited Visits (Within 10 days (routine)) - Pending Review Specialty Diagnoses / Procedures Referred By Contac t Referred To Contact Neuro/Ortho Surgery - Spine. / Neurological Surgery Diagnoses Lumbar radicular pain Arachnoiditis Rosa Bolton PA-C [address] [place] [address] Sanya Valerio MD [address] [place] [address] [place] [address] Referral ID Status Reason Start Date Expiration Date Visits Requested Visits Authorized Pending Review Specialty Services Required 05/18/2022 [id number] Question Answer Referral Priority Within 10 days (routine) Select spine region: Back - Thoracic/Lumbar Do you have any recent complete loss of bladder or bowel function? No Comments Neurosurgery please. Chronic low back pain with progressive B LE weakness. 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 Reason for Visit * Reason Comments Back Pain * Evaluate & Treat - Unlimited Visits (Within 10 days (routine)) - Pending Review Specialty Diagnoses / Procedures Referred By Contac t Referred To Contact Pain Management / Pain Medicine Diagnoses Chronic right-sided low back pain, unspecified whether sciatica present Samantha Soto PA-C [address] [place] [address] Referral ID Status Reason Start Date Expiration Date Visits Requested Visits Authorized Pending Review Specialty Services Required 04/25/2022 [id number] Encounter Details Date Type Department Care Team Description 05/16/2022 Office Visit Interventional Pain Center, [facility] [address] [facility] [place] [address] Rosa PA-C 400 [facility] [place] [address] Lumbar radicular pain*; Arachnoiditis Allergies No known active allergiesdocumented as of this encounter (statuses as of 05/29/2022) Medications Medication Sig Dispensed Refills Start Date [...] 400 Units by mouth daily. 0 Active [place]-3 Fatty Acids (OMEGA 3 500) 500 MG [...] 05/09/2022 Active Furosemide 40 MG Oral Tablet (Lasix)Indication s:HTN, goal below 140/90 Take 1 tablet by mouth once daily 90 Tablet 2 12/13/2021 2 Discontinued documented as of this encounter (statuses as of 05/29/2022) Active Problems Problem Noted Date Chest pain [...] as of this encounter (statuses as of 05/29/2022) Resolved Problems Problem Noted Date Resolved Date Encounter for surveillance of abnormal nevi 03/2004/29/2021 Dyslipidemia, goal LDL below 100 06/01/2014 12/08/2015 Hypoactive thyroid 01/07/2013 12/11/2016 Bronchiectasis 04/18/2003 06/12/2017 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 Gaurang Rodriguez DO * Rosa Bolton PA-C - 05/16/2022 9:50 AM EDT GENERAL HISTORY & PHYSICAL EXAMINATION - Anesthesia and Pain Service Name: Placido Dean Location: [facility] REFERRING PHYSICIAN: Samantha Soto PA-C Thank you for referring Placido Dean. CHIEF COMPLAINT: Low back and LE pain HPI: Placido Dean is a 61 year old male who complains of low back pain that radiates to bilateral buttock, lateral hip and anterior thigh, stopping just distal to knee. 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 Progressive back pain with LE pain and weakness x's six months without preceding injury. Now using a cane consistently which is new in past few months. Mild relief with conservative care including physical therapy Mark (Dec 2021 - March 2022,) medication management, daily home stretching program, chiropractic manipulation. Symptoms occur daily. Describes pain as "aching." Painis constant, rated 2/10. Aggravating factors include: prolonged standing, sitting or walking. Alleviated temporarily while lying supine. Admits associated weakness B LE. Intermittent paresthesia B feet, no distinct dermatomal pattern. + "cramping" B LE at night, which causes difficulty sleeping. Denies bowel or bladder incontinence. Denies hx spine surgery or injections. 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 Pain is affectingADL - difficulty putting on shoes and socks due to low back pain and stiffness. Past medications used for pain: zanaflex, gabapentin, topical lidocaine. Anticoagulation therapy: no Diabetic: no Presents with , Bev. 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 Pericardial effusion 01/2003 idiopathic[place] [facility] Pilonidal cyst without infection Past Medical History - Pertinent Findings: (-) clotting disorder PAST SURGICAL HISTORY: Past Surgical History: Procedure Laterality Date BRONCHOSCOPY W/ BRONCHIAL BIOPSY 2002 biopsy, open and bronchoscopy COLONOSCOPY, DIAGNOSTIC (RECTUM) 11/29/2012 COLONOSCOPY FLEXIBLE PROXIMAL DIAGNOSTIC performed by Cristy Dobbs DO at [facility] COLONOSCOPY, DIAGNOSTIC (RECTUM) 11/26/2015 diverticulosis, repeat 10 yrs/COLONOSCOPY FLEXIBLE PROXIMAL DIAGNOSTIC performed by Cristy Dobbs DO at [facility]COPY [facility] PROCEDURE NEC Dental Surgery Procedure DRAINAGE OF HEART SAC 2002 [facility] REMOVAL OF WRIST LESION FAMILY HISTORY: Family History Problem Relation Age of Onset Dementia Father Other (Other) Brother accident Genitourinary Disorder Father stones Hypertension Father No Past Hx Mother Cancer Grandmother (Paternal) pancreas Other (Other) Grandfather (Paternal) blood poisoning Lung Disorder Grandfather (Maternal) Alcohol and Other Disorders Associated Grandfather (Maternal) No Past Hx Grandmother (Maternal) Family History - Pertinent Findings: (-) clotting disorder SOCIAL HISTORY: Social History Tobacco Use Smoking status: Never Smoker Smokeless tobacco: Former User Types: Chew Tobacco comment: quit Substance Use Topics Alcohol use: Yes Alcohol/week: 5.0 standard drinks Types: 6 12 oz of beer per week Drug use: No CURRENT MEDICATIONS: Note that discontinued and completed medications (per the MAR) continue to display for 24 hours. Ordered medications to be given in the future also display. Current Outpatient Medications Medication Sig Dispense Refill [...] Capsule Take 400 Units by mouth daily. [place]-3 Fatty Acids (OMEGA 3 500) 500 MG CAPS Take by mouth. Lisinopril 40 MG Oral Tablet Take 1 tablet by mouth once daily 90 Tab 3 Furosemide 40 MG Oral Tablet (Lasix) Take 1 tablet by mouth once daily 90 Tablet 2 tiZANidine HCl 4 MG Oral Tablet (Zanaflex) [...] DAILY IN THE MORNING 90 Tablet 1 ALBUTEROL SULFATE (2.5 MG/3ML) 0.083% IN NEBU Inhale via nebulizer . SUMAtriptan (IMITREX) 50 MG Tablet TAKE ONE TABLET BY MOUTH ONE TIME ONLY,REPEAT AFTER TWO HOURS NEEDED MAX OF FOUR TABLETS 12 Tab 0 Mometasone Furo-Formoterol Fum (DULERA) 100-5 MCG/ACT Inhaler Inhale 1 Puff by mouth as needed. Azelastine HCl 0.1 % nasal spray USE 2 SPRAY(S) IN EACH NOSTRIL TWICE DAILY 90 mL 1 Meclizine HCl 25 MG Oral Tablet (Antivert) TAKE 1 TABLET BY MOUTH THREE TIMES DAILY NEEDED FOR DIZZINESS 30 Tab 5 No current facility-administered medications for this visit. ALLERGIES: Patient has no known allergies. ROS: Constitutional: Negative for fatigue, fever, appetite change, unexplained weight loss. ENT: Negative for hearing loss, sore throat. Respiratory: Negative for cough, shortness of breath, dyspnea. Musculoskeletal: Negative for neck, mid-back pain. + low back and LE pain - see HPI Neurological: Negative for headaches, seizures. Genitourinary: Negative for dysuria, urinary frequency, hematuria. Hematologic/ Lymphatic: Negative for easy bleeding, bruising, lymphadenopathy. Gastrointestinal: Negative for abdominal pain, nausea, vomiting, constipation, diarrhea. Cardiovascular: Negative for chest pain, palpitations, ankle swelling, orthopnea. PHYSICAL EXAMINATION: Most Recent Vital Signs: There were no vitals filed for this visit. General Appearance: Patient appears to be about stated age, pleasant and cooperative with normal affect. HEENT: head normocephalic, pupils equal round and reactive to light and accommodation, EOMI, hearing intact and equal bilaterally and nose clear, throat normal Heart: regular rate and rhythm, S1 normal, S2 normal, no murmurs, clicks, or gallops Lungs: Clear to auscultation without rhonchi or rales. Lumbar Spine: Normal lumbar lordatic curvature is present. Skin is intact without gross abnormalities. No masses palpable. Midline and B paravertebral musculature nontender. B sacroiliac joint nontender. No evidence of myofascial trigger points. Limited active ROM with flexion and extension of the lumbar spine. Increased pain with full extension. Lower Extremity Strength: Hip Flexion 5/5 bilaterally. Hip Abductor 5/5 bilaterally. Hip Adductor 5/5 bilaterally. Extensor Hallicus Longus 5/5 bilaterally. Deep Tendon Reflex: Patellar: 2/4 bilaterally. Achilles: 2/4 bilaterally. Low Back Provocative Testing: RUDI test: negative bilaterally. Straight Leg Raise Test: positive bilaterally. Lumbar Facet Loading: positive bilaterally. Sensation: Dermatomal sensation not formally tested. Grossly normal and symmetric unless otherwise specified. Gait/Coordination: Able to rise from seated position with assistance. Ambulates slowly and with assistance using single point cane. IMAGING: MRI LUMBAR SPINE WITHOUT CONTRAST - 04/13/2022 There are 5 lumbar-type vertebral bodies and [...] potentially related to the chronic intraspinal hemorrhage. XR L SPINE COMPLETE W BENDING 6 VIEWS - 01/17/2022 12:40 pm Grade 1 anterolisthesis L4-L5. No evidence for dynamic instability. Disc space heights are preserved. No evidence for fracture. IMPRESSION Grade 1 anterolisthesis L4-L5 ASSESSMENT: Lumbar radicular pain, B LE PLAN: Chronic low back pain with progressive B anterior thigh pain and weakness x's six months despite physical therapy, daily home stretching and medication management. Pain is affecting ADL. Neurologically intact. Reviewed L spine xray and MRI - grade 1 listhesis L4/5, mild dependent clumping of cauda equina suggestive of chronic arachnoiditis with remote thickening of thecal sac from hemorrhage, no area of high grade central or foraminal narrowing. Discussed case with Dr. Puente and Dr. Rodriguez who both recommeneded referral to neurosurgery with concerns for injections, not a candidate due to intraspinal hemorrhage. Referral to neurosurgery placed. Encouraged to contact clinic and or seek urgent care if LE weakness continues to progress. Rosa Bolton PA-C 05/16/2022 documented in this encounter Nursing Notes * Elizabeth King LPN - 05/16/2022 9:50 AM EDT Patient reports low back and b/l lower ext pain x1yr No improvement with PT Worse with prolonged standing/sitting/walking MRI in chart documented in this encounter Plan of Treatment Upcoming Encounters Date Type Specialty Care Team Description 05/30/2022 Office Visit Orthopedics Nima Cox DO [address] [place] [address] 06/06/2022 Office Visit Family Medicine Samantha Soto PA-C [address] [place] [address] 06/27/2022 Office Visit Neurological Surgery Sanya Valerio MD [address] [place], [place] [address] [id number] 11/21/2022 Office Visit Cardiology Kath Carlin PA-C [address] [place] [address] Scheduled Procedures Name Priority Associated Diagnoses Date/Ti me COLONOSCOPY FLEXIBLE PROXIMA L DIAGNOSTIC Recall Encounter for screening colonoscopy Scheduled Referrals Name Type Priority Associated Diagnoses Orde r Schedule SPINE SURGERY REFERRAL OP Referral Within 10 days (routine) Lumbar radicular pain Arachnoiditis Ordered: 05/18/2022 Health Maintenance Due Date Last Done Comments [...] Documents on File Type Date Recorded Patient Systems Management Consultant Expl anation Advanced Directive Advanced Directive Advanced [...] Directive Advanced Directive Advanced Directive Care Teams Pv Design Engineer Relationship Specialty Start Date End Date Farooq Rodríguez, DO [address] [place] [address] PCP - General Family Medicine 08/22/19 documented as of this encounter
--- OUTSIDE RECORDS SUMMARY | 2023-09-26 02:02 | External Medical Summary | Summary of Care ---
Author Name Unknown Organization [facility] Address [place] [address] Care Team Providers Care Boiler Shop Mechanic Name Role Phone Farooq Rodríguez Primary Care Provider [phone] Reason for Visit * Reason Comments Outpatient Testing Encounter Details Date Type Department Care Team Description 05/30/2022 Laboratory [facility] [place] [address] [facility] [address] Hypothyroidism; Acquired hypothyroidism; Chronic diastolic (congestive) heart failure (HCC); Dilated aortic root (HCC); Bilateral leg edema Allergies No known active allergiesdocumented as of [...] 400 Units by mouth daily. 0 Active [place]-3 Fatty Acids (OMEGA 3 500) 500 MG [...] Sunday, Sunday 45 Tablet 11 05/18/2022 Active documented as of this encounter (statuses [...] thyroid 01/07/2013 12/11/2016 Bronchiectasis 04/18/2003 06/12/[address] syndrome 01/17/2003 02/10/2021 Pneumonia due to other [...] Team Description 05/30/2022 Office Visit [facility] [address] Placido Dean 06/06/2022 Office Visit Family Medicine Samantha Soto PA-C 200 [facility] [place] [address] 06/27/2022 Office Visit Neurological Surgery Sanya Valerio MD [address] [facility] [place] [address] 11/21/2022 Office Visit Cardiology Kath Carlin PA-C [address] [facility] [place] [address] Pending Results Name Type Priority Associated Diagnoses Date /Time TSH WITH FREE T4 IF INDICATED Lab Routine Hypothyroidism 05/30/2022 7:40 AM EDT T4, FREE Lab Routine Acquired hypothyroidism 05/30/2022 7:40 AM EDT COMPREHENSIVE METABOLIC PANEL Lab Routine Chronic diastolic (congestive) heart failure (HCC) Dilated aortic root (HCC) Bilateral leg edema 05/30/2022 7:40 AM EDT HEMOGLOBIN A1C Lab Routine Chronic diastolic (congestive) heart failure (HCC) Dilated aortic root (HCC) Bilateral leg edema 05/30/2022 7:40 AM EDT Scheduled Procedures Name Priority Associated Diagnoses [...] encounter Visit Diagnoses Diagnosis Hypothyroidism Unspecified hypothyroidism Acquired hypothyroidism Unspecified hypothyroidism Chronic diastolic (congestive) heart failure (HCC) Dilated aortic root (HCC) Thoracic aortic ectasia Bilateral leg edema Edema documented in this encounter Advance Directives Documents on File Type Date Recorded Patient Workers Compensation Claims Supervisor Expl anation Advanced Directive Advanced Directive [...] Directive Advanced Directive Advanced Directive Care Teams Boiler Shop Mechanic Relationship Specialty Start Date End Date Farooq Rodríguez, DO [address] [place] [address] PCP - General Family Medicine 08/22/19 documented as of this encounter
--- OUTSIDE RECORDS SUMMARY | 2023-09-26 02:02 | External Medical Summary ---
Author Name Unknown Address Unknown Organization K01:[place] [place] [address] [place] [address] [place] [address] Laboratory Report Ordering Provider Test Date Status JEREMY NETTLES 05/30/2022 07:40:26 Final Observation Date Value Abnormality Reference (Units ) Status TSH 05/30/2022 07:40:26 4.89 Above high normal 0. 27-4.20 (uIU/mL) Final Performing Location LABORATORY C - [address] [facility] [address]
--- OUTSIDE RECORDS SUMMARY | 2023-09-26 02:02 | External Medical Summary ---
Author Name Unknown Address Unknown Organization K01:[facility] [place] [address] [address] Laboratory Report Ordering Provider Test Date Status CAROLE RICE 05/30/2022 07:40:26 Final Observation Date Value Abnormality Reference (Units ) Status HbA1C 05/30/2022 07:40:26 5.3 4.0-5.6 (% ) Final The use of HbA1c to monitor glycemic status is based on normal hemoglobin and HbA composition. This test should not be used in patients with abnormal hemoglobin that affects the half life of the red blood cell or the in vivo glycation rates. Glucose, estimated average 05/30/2022 07:40:26 105 <126 (mg/dL) Final Performing Location [facility]ORY [facility] [address] [facility] [address]
--- OUTSIDE RECORDS SUMMARY | 2023-09-26 02:02 | External Medical Summary | Summary of Care ---
Author Name Unknown Organization [facility] Address [place] [address] Care Team Providers Care Radar Repairer Name Role Phone Farooq Rodríguez Primary Care Provider [phone] Reason for Visit * Reason Comments Follow Up L knee Encounter Details Date Type Department Care Team Description 05/30/2022 Office Visit Orthopaedics [facility] [place] [address] Nima Cox DO [address] [facility] [place] [address] Primary osteoarthritis of left knee* Allergies No [...] 400 Units by mouth daily. 0 Active [place]-3 Fatty Acids (OMEGA 3 500) 500 MG [...] knee 2 mL IJ ONCE 05/30/2022 05/30/20 22 Active documented as of this encounter (statuses [...] - 05/30/2022 7:53 AM EDT Placido Dean [id number] Placido Dean is a 61 year old male who presents for f/u to [facility] for left knee injury/pain. Placido [...] months Pericardial effusion 01/2003 idiopathic, at [facility] Pilonidal cyst without infection Current Outpatient Medications [...] Capsule Take 400 Units by mouth daily. [place]-3 Fatty Acids (OMEGA 3 500) 500 MG [...] Nima Cox, Primary Care Sports Medicine Orthopaedics [address] [address] Procedure note (knee injection), left : Time [...] Visit Family Medicine Sam[facility]-C [facility] [address] 06/27/2022 Office Visit Neurological Surgery Sanya Valerio MD [address] [place] [address] [place] [address] 11/21/2022 Office Visit Cardiology Kath Carlin PA-C [address] [facility] [place] [address] Scheduled Orders Name Type Priority Associated Diagnoses [...] osteoarthrosis, lower leg documented in this encounter Advance Directives Documents on File Type Date Recorded Patient Federal Appellate Law Clerk Expl anation Advanced Directive Advanced Directive Advanced [...] Directive Advanced Directive Advanced Directive Care Teams Radar Repairer Relationship Specialty Start Date End Date Farooq Rodríguez, DO [address] [place] [address] PCP - General Family Medicine 08/22/19 documented as of this encounter
--- OUTSIDE RECORDS SUMMARY | 2023-09-26 02:03 | External Medical Summary | Summary of Care ---
Author Name Unknown Organization [place] [address] Care Team Providers Care Obstetrics Gynecology Md Name Role Phone Farooq Rodríguez Primary Care Provider [phone] Reason for Referral * Evaluate & Treat - Unlimited Visits (Within 10 days (routine)) - Pending Review Specialty Diagnoses / Procedures Referred By Contac t Referred To Contact Neuro/Ortho Surgery - Spine. / Neurological Surgery Diagnoses Lumbar radicular pain Arachnoiditis Rosa Bolton PA-C [address] [place] [address] Sanya Valerio MD [address] [place] [address] [place] [id number] Referral ID Status Reason Start Date Expiration [...] present Samantha Soto PA-C [address] [place] [address] Referral ID Status Reason Start Date Expiration Date Visits Requested Visits Authorized Pending Review Specialty Services Required 04/25/[phone] Encounter Details Date Type Department Care Team Description 05/16/2022 Office Visit Interventional Pain Center, [facility] [place] [address] [facility] [place] [address] , NICOLAS Lee [address] [facility] [place] [address] Lumbar radicular pain*; Arachnoiditis Allergies No known active allergiesdocumented as of this encounter (statuses as of 05/18/2022) Medications Medication Sig Dispensed Refills Start Date [...] 400 Units by mouth daily. 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 Pain is affectingADL - difficulty putting on shoes and socks due to low back pain and stiffness. Past medications used for pain: zanaflex, gabapentin, topical lidocaine. Anticoagulation therapy: no Diabetic: no Presents with Bev. 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 Pericardial effusion 01/2003 idiopathic, at [facility] Pilonidal cyst without infection Past Medical History - Pertinent Findings: (-) clotting disorder PAST SURGICAL HISTORY: Past Surgical History: Procedure Laterality Date BRONCHOSCOPY W/ BRONCHIAL BIOPSY 2002 biopsy, open and bronchoscopy COLONOSCOPY, DIAGNOSTIC (RECTUM) 11/29/2012 COLONOSCOPY FLEXIBLE PROXIMAL DIAGNOSTIC performed by Cristy Dobbs DO at ENDOSCOPY [facility] COLONOSCOPY, DIAGNOSTIC (RECTUM) 11/26/2015 diverticulosis, repeat 10 yrs/COLONOSCOPY FLEXIBLE PROXIMAL DIAGNOSTIC performed by Cristy Dobbs DO at ENDOSCOPY [facility] DENTAL SURGERY PROCEDURE NEC Dental Surgery Procedure DRAINAGE OF HEART SAC 2002 [facility] REMOVAL OF WRIST LESION FAMILY HISTORY: Family [...] Capsule Take 400 Units by mouth daily. Oxford-3 Fatty Acids (OMEGA 3 500) 500 MG [...] 05/30/2022 Office Visit Orthopedics Nima Cox, [address] [place] [address] 06/06/2022 Office Visit Family Medicine Samantha Soto PA-C [address] [facility] [address] 11/21/2022 Office Visit Cardiology Kath Carlin PA-C [address] [place] [address] Scheduled Procedures Name Priority Associated Diagnoses Date/Ti [...] 04/29/2021 Influenza Vaccine (FLU shot) (Season Ended) 2022 09/02/2020, 09/02/2020, 08/18/2020, Additional history exists BASIC METABOLIC PANEL (BMP) FOR HTN YEARLY 03/14/2023 03/14/2022, 03/21/2021, 12/22/2020, Additional history exists TSH FOR THYROID MEDICATION MONITORING YEARLY 03/14/2023 03/14/2022, 12/22/2020, 11/21/2019, Additional history exists DIABETES SCREEN EVERY 3 YRS-AGE 45 AND ABOVE 03/14/2025 03/14/2022, 03/21/2021, 12/22/2020, Additional history exists Colonoscopy: Ages 45-75 11/26/2025 11/26/19 16, 11/26/2015, 11/29/2012, Additional history exists Colorectal Cancer Screening (Colonoscopy 10 Years; Sigmoidoscopy 5 Years; Cologuard 3 Years; FOBT 1 Year): Ages 45-75 11/26/2025 LIPID SCREEN EVERY 5 YRS-MEN AGE 35-75 01/17/2027 01/17/2022, 12/22/2020, 02/24/2020, Additional history exists DTaP,Tdap,and Td Vaccines [...] Documents on File Type Date Recorded Patient Regional Sales Representative Expl anation Advanced Directive Advanced Directive Advanced [...] Directive Advanced Directive Advanced Directive Care Teams Obstetrics Gynecology Md Relationship Specialty Start Date End Date Farooq Rodríguez, DO [address] [place] [address] PCP - General Family Medicine 08/22/19 documented as of this encounter
--- OUTSIDE RECORDS SUMMARY | 2023-09-26 02:03 | External Medical Summary | Summary of Care ---
Author Name Unknown Organization [facility] [place] [address] Care Team Providers Care Product Lister Name Role Phone Farooq Rodríguez Primary Care Provider [phone] Reason for Visit * Reason Comments Follow Up Encounter Details Date Type Department Care Team Description 05/18/2022 Office Visit Cardiology, [facility] [address] [place] [address] Kath Carlin PA-C [address] [place] [address] Bilateral leg edema*; Chronic diastolic (congestive) heart failure (HCC); Dilated aortic root (HCC); HTN, goal below 140/90; Ascending aorta dilatation (HCC) Allergies No known active allergiesdocumented as of [...] 400 Units by mouth daily. 0 Active Clifton-3 Fatty Acids (OMEGA 3 500) 500 MG [...] Sunday, Sunday 45 Tablet 11 05/18/2022 Active Furosemide 40 MG Oral Tablet (Lasix)Indication s:HTN, goal below 140/90 Take 1 tablet by mouth once daily 90 Tablet 2 12/13/2021 Discontinued documented as of this encounter (statuses [...] Smokeless Tobacco: Former User Chew Quit: 04/21/2012 Tobacco Cessation:Counseling Given: No Comments:quit Alcohol Use Standard Drinks/Week Comments Yes 5 (1 standard drink = 0.6 oz pur e alcohol) Sex Assigned at Date Recorded Not on file Job Start Date Occupation Industry Not on file Not on file Not on file documented as of this encounter Last Filed Vital Signs Vital Sign Reading Time Taken Comments Blood Pressure 108/76 05/18/2022 8:29 AM EDT Pulse 62 05/18/2022 8:29 AM EDT Temperature 36.3 C (97.3 F) 05/18/2022 8:29 AM ED T Respiratory Rate 18 05/18/2022 8:29 AM EDT Oxygen Saturation - - Inhaled Oxygen Concentration - - Weight 121.9 kg (268 lb 12.8 oz) 05/18/2022 8:29 AM EDT Height - - Body Mass Index 40.87 04/25/2022 7:50 AM EDT documented in this encounter Progress Notes * Kath Carlin PA-C - 05/18/2022 8:36 AM EDT 05/18/2022 Cardiology F/U: History of Present Illness: Mr. Woodward is a 61 year old male who presents today for routine cardiology follow-up. Last clinic evaluation approximately 6 months ago with the undersigned. Patient's past cardiac history significant for right middle lobe resection in 2002, resulting in post op pleuropericarditis and cardiac tamponade requiring urgent transfer to [facility] for pericardiocentesis. F/U echocardiograms demonstrated normal pericardium without pericardial effusion, normal EF, andno significant valvular disease with dilated aortic root measuring 4.7 cm and ascending aortic dilation measuring 4.0 cm. Other history significant for inflammatory pulmonary disease for which he follows with [place] [facility], dyslipidemia, hepatic steatosis, hypertension, obesity, and chronic diastolic HF controlled on low dose furosemide. Due to recurrent atypical chest pain, patient underwent diagnostic cardiac catheterization on March 23, 2021 at [facility] with Dr. Sigala demonstrating normal coronary arteries. Prior to this appointment, patient had repeat echo demonstrating preserved LV systolic function with stable measurements of aortic root at 4.5 cm and ascending aorta measuring 4.1 cm, overall stable findings from prior echo. Patient presents today feeling relatively well. His primary complaint is severe back pain as well as bilateral knee pain. He is following with pain management as well as Orthopedics for his issues. He is not as mobile due to significant pain. Over the last several months he notes worsening lower extremity edema. Weight gain of approximately 15 lb also noted. He attributes this to dietary indiscretion and lack of exercise. He denies worsening shortness of breath. No orthopnea, PND. No fever, cough, chills. No recent chest pain. No palpitations or tachy palpitations. No dizziness, lightheadedness, syncope or near-syncope. Review of Systems: See HPI for pertinent positives. All others negative, other than those noted in HPI. Patient Active Problem List Diagnosis Code Pericardial effusion I31.3 PILONIDAL CYST W-O ABSC L05.91 Beta-blockers contraindicated [...] Chest pain with normal coronary angiography R07.9 Social History Tobacco Use Smoking status: Never [...] performed by Cristy Dobbs DO at ENDOSCOPY [facility] DENTAL SURGERY PROCEDURE NEC Dental Surgery Procedure DRAINAGE OF HEART SAC 2002 [facility] REMOVAL OF WRIST LESION Review [...] Capsule Take 400 Units by mouth daily. Clifton-3 Fatty Acids (OMEGA 3 500) 500 MG [...] DAILY NEEDED FOR DIZZINESS 30 Tab 5 Furosemide 40 MG Oral Tablet (Lasix) Take [...] DAILY IN THE MORNING 90 Tablet 1 No current facility-administered medications for this visit. OBJECTIVE/PHYSICAL EXAMINATION: BP 108/76 (BP Site: Left Arm, BP Position: Sitting, BP Cuff Size: Large) | Pulse 62 | Temp 36.3 C(97.3 F) | Resp 18 | Wt 121.9 kg (268 lb 12.8 oz) | BMI 40.87 kg/m | BSA 2.42 m On my repeat 116/64 equal in both arms BP Readings from Last 4 Encounters: 05/18/22 108/76 04/25/22 138/88 03/14/22 122/90 02/14/22 138/80 Wt Readings from Last 3 Encounters: 05/18/22 121.9 kg (268 lb 12.8 oz) 04/25/22 121.3 kg (267 lb 6.4 oz) 03/14/22 119.3 kg (263 lb) General: NAD. A&Ox3. Eyes: Conjunctiva are pink and non-injected, sclera clear Neck: No overt JVD. Chest: Normal respiratory effort Lungs: Clear to auscultation Cardiac Exam: RRR. No murmurs, rubs, or gallops Abdomen: Distended. Obese. +BS. Soft. Extremities: 1+ pitting ankle and pretibial edema Neuro: Grossly normal exam Psych: Appropriate affect and insight. DATA: EKG performed today and reviewed personally: Normal sinus rhythm at 65 bpm Baseline [...] report reviewed dated March 23, 2021 at [facility], performed by Dr. Sigala: Coronary angiography: Selective [...] are stable without significant interval change. Outpatient library monitor report reviewed dated 02/11/21: CONCLUSIONS: Preliminary [...] aortic root sizes have increased slightly Outpatient library monitor report reviewed dated November 2019: Duration [...] measured to be 3.7 centimeters at thattime. Results for PLACIDO WOODWARD ( ) as of 05/18/2022 14:35 Ref. Range 03/14/2022 08:32 Sodium Latest Ref Range: 135 - 146 mmol/L 143 Potassium Latest Ref Range: 3.5 - 5.1 mmol/L 4.3 Chloride Latest Ref Range: 98 - 107 mmol/L 103 CO2 Latest Ref Range: 22 - 32 mmol/L 29 BUN Latest Ref Range: 6 - 20 mg/dL 22 (H) Creatinine Latest Ref Range: 0.6 - 1.2 mg/dL 1.2 Estimated Glomerular Filtration Rate Latest Ref Range: >=60 mL/min 70 Anion Gap Latest Ref Range: 7 - 15 mmol/L 11 Glucose Latest Ref Range: 70 - 120 mg/dL 96 Calcium Latest Ref Range: 8.4 - 10.2 mg/dL 9.5 Results for PLACIDO WOODWARD ( ) as of 05/18/2022 14:35 Ref. Range 01/17/2022 11:31 Triglycerides Latest Ref Range: <=174 mg/dL 140 Cholesterol Latest Ref Range: <200 mg/dL 171 Non-HDL Cholesterol Latest Ref Range: <=159 mg/dL 130 HDL Cholesterol Latest Ref Range: >39 mg/dL 41 LDL Cholesterol Latest Ref Range: <=129 mg/dL 102 IMPRESSION and PLAN: 61 year old male 1. Prior history of chest pain, non cardiac - normal cardiac catheterization 03/23/21 after equivocalstress testing. No recent symptoms. 2. Hypertension - controlled today 3. Bradycardia - asymptomatic. Stable. No significant pauses or bradyarrhythmias on prior monitor. 4. History of prior cardiac tamponade /effusion S/P pericardiocentesis in 2002- No recurrence per serial echocardiograms. Stable cardiovascular signs/symptoms 5. Chronic diastolic HF with increased edema - likely due to immobility. 6. Dyslipidemia - controlled. 7. Obesity - continued weight loss recommended. 8. Dilated aortic root, stable at 4.7 (4.5 by recent echo), ascending aorta measuring 4.0 cm (4.1 cm by recent echo) 9. Paroxysmal SVT, one episode lasting 9 seconds may be PAF, but difficult to determine. No recurrence PLAN: Increased edema noted. Likely multifactorial given immobility with orthopedic complaints, dietary indiscretion. Options discussed. Recommend compression stockings, reducing sodium in diet, and elevating legs when sitting. Will try adjusting diuretic as well. Increase furosemide 40 mg daily with additional 20 mg in the afternoon 3 days per week. Updated labs requested in 2 weeks. Patient to call with any new or worsening symptoms that fail to improve with these changes. CHF tools discussed including daily weights, salt/sodium/fluid restriction, and use of diuretic protocol. I spent a total of 30 minutes on the date of service in preparation, delivery, and documentation ofthe care provided to Placido Woodward excluding any time spent in the performance of separately billed services. The patient agrees to the above plan and will call with additional questions or concerns. ER with all emergencies advised. Follow-up: Return in about 6 months (around 11/17/2022). | Check-out note: Blood work same day as upcoming Ortho appt Kath Carlin PA-C Department of Cardiology This chart was completed in part utilizing [employer] Speech Voice Recognition Software. Grammatical errors, random [...] in this encounter Nursing Notes * Lynn Holland RN - 05/18/2022 8:31 AM EDT Examination Room: 6 Name: Placido Woodward Date of : (1960). Reason for Visit: Follow up Interim Hospitalization(s): No Problems/Concerns: States feeling well, overall. Chest Pain/SOB: Denies [facility] Discussed: Not applicable [...] 05/30/2022 Office Visit Orthopedics Nima Cox, [address] [place] [place] [address] 06/06/2022 Office Visit Family Medicine Samantha Soto PA-C [address] [place] [address] 11/21/2022 Office Visit Cardiology Kath Carlin PA-C [address] [place] [address] Scheduled Orders Name Type Priority Associated Diagnoses Orde r Schedule EKG EKG Routine Chronic diastolic (congestive) heart failure (HCC) Dilated aortic root (HCC) Ordered: 05/18/2022 COMPREHENSIVE METABOLIC PANEL Lab Routine Chronic diastolic (congestive) heart failure (HCC) Dilated aortic root (HCC) Bilateral leg edema Expected: 05/30/2022, Expires: 05/18/2023 HEMOGLOBIN A1C Lab Routine Chronic diastolic (congestive) heart failure (HCC) Dilated aortic root (HCC) Bilateral leg edema Expected: 05/29/2022, Expires: 05/18/2023 Scheduled Procedures Name Priority Associated Diagnoses Date/Ti [...] as of this encounter Visit Diagnoses Diagnosis Bilateral leg edema- Primary Edema Chronic diastolic (congestive) heart failure (HCC) Dilated aortic root (HCC) Thoracic aortic ectasia HTN, goal below 140/90 Unspecified essential hypertension Ascending aorta dilatation (HCC) Thoracic aortic ectasia documented in this encounter Advance Directives Documents on File Type Date Recorded 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
--- OUTSIDE RECORDS SUMMARY | 2023-09-26 02:03 | External Medical Summary | Summary of Care ---
Author Name Unknown Organization [place] [address] Care Team Providers Care Caramel Cutter Machine Name Role Phone AntolinFarooq roger Primary Care Provider [phone] Reason for Referral * Evaluate & Treat - Unlimited Visits (Within 10 days (routine)) - Pending Review Specialty Diagnoses / Procedures Referred By Contac t Referred To Contact Pain Management Diagnoses Chronic right-sided low back pain, unspecified whether sciatica present Samantha Soto PA-C [address] [place] [address] Referral ID Status Reason Start Date Expiration Date Visits Requested Visits Authorized Pending Review Specialty Services Required 04/25/2022 999 999 Question Answer Referral Priority Within 10 days (routine) Reason for referral? Interventional Pain Management - (Injection) What is the preferred location to have this test performed? [facility] Comments Patient Name: Placiod Dean Date of : 1960 Department Phone [...] pain if not done previously. Fax No. [facility] [phone] or contact front desk coordinator [phone] [facility] [phone] or contact front desk coordinator [phone] Fax No. [facility] [phone] or contact front desk coordinator [phone] Reason for Visit * Reason Comments Follow Up Pt c/o Patient state s 6 week follow up. Patient states swelling and pain continues. Encounter Details Date Type Department Care Team Description [facility] [place] [address] [facility] [place] [address] Samantha Soto PA-C [address] [facility] [place] [address] Acquired hypothyroidism*; Chronic right-sided low back pain, unspecified whether sciatica present Allergies No known active allergiesdocumented as of this encounter (statuses as of 04/25/2022) Medications Medication Sig Dispensed Refills Start Date [...] 400 Units by mouth daily. 0 Active [place]kov-3 Fatty Acids (OMEGA 3 500) 500 MG CAPS Take by mouth. 0 Active Azelastine HCl 0.1 % nasal sprayIndications:Chr onic rhinitis USE 2 SPRAY(S) IN EACH NOSTRIL TWICE DAILY 90 mL 1 04/03/2019 Active Atorvastatin Calcium 40 MG Oral Tablet (Lipitor)Indications :CAD (coronary artery disease) Take 1 tablet by mouth once daily 90 Tab 3 05/16/2021 Active Lisinopril 40 MG Oral TabletIndications:HT N, goal below 140/90 Take 1 tablet by mouth once daily 90 Tab 3 07/04/2021 Active Meclizine HCl 25 MG Oral Tablet (Antivert) TAKE 1 TABLET BY MOUTH THREE TIMES DAILY NEEDED FOR DIZZINESS 30 Tab 5 08/08/2021 Active Furosemide 40 MG Oral Tablet (Lasix)Indications:H TN, goal below 140/90 Take 1 tablet by mouth once daily 90 Tablet 2 12/13/2021 Active tiZANidine HCl 4 MG Oral Tablet (Zanaflex)Indication s:Acute low back pain without sciatica, unspecified back pain laterality Take by mouth 1 Tablet every 6 hours as needed for Muscle spasms. 30 Tablet 0 01/17/2022 Active Spironolactone 25 MG Oral Tablet (Aldactone) TAKE 1 TABLET BY MOUTH ONCE DAILY IN THE MORNING 90 Tablet 0 02/14/2022 Active Gabapentin 300 MG Oral Capsule (Neurontin)Indicatio ns:Chronic bilateral low back pain with bilateral sciatica Take by mouth 1 Capsule before bedtime. 30 Capsule 1 02/14/2022 Active Pantoprazole Sodium 40 MG Oral Tablet Delayed Release (Protonix)Indication s:Gastroesophageal reflux disease without esophagitis Take by mouth 1 Tablet in the morning. 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 02/10/2021 Pneumonia due to other virus not elsewhere class ified 12/24/2002 04/29/2021 documented as of this encounter (statuses as of 04/25/2022) Immunizations Name Administration Dates Next Due COVID-19 mRNA, LNP-s, No Pre serve, 2-Dose Series (NewACT) 04/09/2021,03/19/2021 Pneumococcal Conjugate Vacc, 13 Valent (Prevnar) [...] Sign Reading Time Taken Comments Blood Pressure 138/88 04/25/2022 7:50 AM EDT Pulse 66 04/25/2022 7:50 AM EDT Temperature 36.1 C (97 F) 04/25/2022 7:50 AM EDT Respiratory Rate 20 04/25/2022 7:50 AM EDT Oxygen Saturation 100% 04/25/2022 7:50 AM EDT Inhaled Oxygen Concentration - - Weight 121.3 kg (267 lb 6.4 oz) 04/25/2022 7:50 AM EDT Height 172.7 cm (5' 8") 04/25/2022 7:50 AM EDT Body Mass Index 40.66 04/25/2022 7:50 AM EDT documented in this encounter Progress Notes * Samantha Soto PA-C - 04/25/2022 9:55 AM EDT CC: Follow-up on back pain There are no exam notes on file for this visit. HPI: Placido Dean is a 61 year old male who presents for follow-up on back pain. Patient reports he has finished his physical therapy at [facility]. While his pain has improved it has not resolved. Today he has done next no physical activity so his pain resides at about a 2/10. Over the last week it maximize that a 4/10 after mowing his grass. He is taking Motrin which seems to help. He did not like the Zanaflex that he took as it gave him strange drains. He has ongoing swelling that he says has improved in his legs since increasing his thyroid medication several weeks ago. Patient denies any red flags such as numbness/tingling of extremities, saddle paraesthesias, loss of bowel or bladder habits. He does states that the pain has now been bothering his left hip at times going down the front of his thigh. Review of Systems: CONSTITUTIONAL: No generalized weakness, [...] three months Pericardial effusion 01/2003 idiopathic, at [facility] Pilonidal cyst without infection Past Surgical History: Procedure Laterality Date BRONCHOSCOPY W/ BRONCHIAL BIOPSY 2002 biopsy, open and bronchoscopy COLONOSCOPY, DIAGNOSTIC (RECTUM) 11/29/2012 COLONOSCOPY FLEXIBLE PROXIMAL DIAGNOSTIC performed by Cristy Dobbs DO at ENDOSCOPY [facility] COLONOSCOPY, DIAGNOSTIC (RECTUM) 11/26/2015 diverticulosis, repeat 10 yrs/COLONOSCOPY FLEXIBLE PROXIMAL DIAGNOSTIC performed by Cristy Dobbs DO at ENDOSCOPY [facility] DENTAL SURGERY PROCEDURE NEC Dental Surgery Procedure DRAINAGE OF HEART SAC 2002 [facility] REMOVAL OF WRIST LESION Social History Tobacco Use Smoking status: Never Smoker Smokeless tobacco: Former User Types: Chew Tobacco comment: quit Substance Use Topics Alcohol use: Yes Alcohol/week: 5.0 standard drinks Types: 6 12 oz of beer per week Vaping/E-Cigarette Use Vaping/E-Cigarette Substances Vaping/E-Cigarette Devices Social History Substance [...] COVID-19 mRNA, LNP-s, No Preserve, 2-Dose Series (NewACT) 03/19/2021, 04/09/2021 Pneumococcal Conjugate Vacc, 13 Valent [...] Capsule Take 400 Units by mouth daily. Askov-3 Fatty Acids (OMEGA 3 500) 500 MG CAPS Take by mouth. Azelastine HCl 0.1 % nasal spray USE 2 SPRAY(S) IN EACH NOSTRIL TWICE DAILY 90 mL 1 Atorvastatin Calcium 40 MG Oral Tablet (Lipitor) Take 1 tablet by mouth once daily 90 Tab 3 Lisinopril 40 MG Oral Tablet Take [...] needed for Muscle spasms. 30 Tablet 0 Spironolactone 25 MG Oral Tablet (Aldactone) TAKE 1 TABLET BY MOUTH ONCE DAILY IN THE MORNING 90 Tablet 0 Gabapentin 300 MG Oral Capsule [...] by mouth once daily 90 Tablet 1 No current facility-administered medications for this visit. Review of patient's allergies indicates: No Known Allergies Patient's past medical, surgical, family, and social history were reviewed. Medications, allergies, immunizations, and health care maintenance screenings were also reviewed. Physical exam: BP 138/88 (BP Site: Left Arm, BP Position: Sitting, BP Cuff Size: Large) | Pulse 66 | Temp 36.1 C(97 F) (Tympanic) | Resp 20 | Ht 1.727 m (5' 8") | Wt 121.3 kg (267 lb 6.4 oz) | SpO2 100% | BMI 40.66 kg/m | BSA 2.41 m GENERAL: alert, healthy, no distress, comfortable and cooperative EYES: PERRLA, extraocular movements intact, conjunctiva are pink and non- injected, sclera clear Respiratory: No coughing or audible wheezing. Pt speaking in complete unlabored sentences. BACK: back symmetric, no curvature, no costovertebral angle tenderness, no tenderness to percussionor palpation, Normal heel walk and toe walk, without evidence of muscle weakness EXTREMITIES: Full ROM, Pulses Intact, Strength equal bilaterally SKIN: skin color, texture, turgor are normal, no rashes or significant lesions Assessment/Plan: Acquired hypothyroidism (Primary) - TSH; Future; Expected date: 04/25/2022 - T4, FREE; Future; Expected date: 04/25/2022 Chronic right-sided low back pain, unspecified whether sciatica present - PAIN MEDICINE REFERRAL OP Discussed pain management. Reviewed patient's recent MRI, will seek additional advice from Neurosurgery. Patient to have labs rechecked her thyroid since medication change. Plan to recheck around beginning of May Patient goals for plan of care were discussed. Follow Up: Recommend re-evaluation if not improving or if symptoms worsen. Samantha Soto PA-C [address] [address] * Rhea Lou LPN - 04/25/2022 7:48 AM EDT Chief Complaint Patient presents with Follow Up Pt c/o Patient states 6 week follow up. Patient states swelling and pain continues. documented in this encounter Plan of Treatment Upcoming Encounters Date Type Specialty Care Team Description 05/11/2022 Cardiac Studies Cardiac Studies 05/18/2022 Office Visit Cardiology Kath Carlin PA-C [address] [place] [address] 05/30/2022 Office Visit Orthopedics Nima Cox DO [address] [place] [address] Scheduled Orders Name Type Priority Associated Diagnoses Orde r Schedule TSH Lab Routine Acquired hypothyroidism Expected: 04/25/2022 (Approximate), Expires: 04/25/2023 T4, FREE Lab Routine Acquired hypothyroidism Expected: 04/25/2022 (Approximate), Expires: 04/25/2023 Scheduled Procedures Name Priority Associated Diagnoses Date/Ti me COLONOSCOPY FLEXIBLE PROXIMA L DIAGNOSTIC Recall Encounter for screening colonoscopy Scheduled Referrals Name Type Priority Associated Diagnoses Orde r Schedule PAIN MEDICINE REFERRAL OP Referral Within 10 days (routine) Chronic right-sided low back pain, unspecified whether sciatica present Ordered: 04/25/2022 Health Maintenance Due Date Last Done Comments [...] Diagnoses Diagnosis Acquired hypothyroidism- Primary Unspecified hypothyroidism Chronic right-sided low back pain, unspecified whether sciatica present documented in this encounter Advance Directives Documents on File Type Date Recorded 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
--- OUTSIDE RECORDS SUMMARY | 2023-09-26 02:04 | External Medical Summary ---
Author Name Unknown Address Unknown Organization [id number]:[facility] - [address] [place] [address] Laboratory Report Ordering Provider Test Date Status JEREMY NETTLES 03/14/2022 08:32:43 Final Observation Date Value Abnormality Reference (Units ) Status TSH 03/14/2022 08:32:43 6.71 Above high normal 0. 27-4.20 (uIU/mL) Final Performing Location [facility] [address] [facility] [address]
--- OUTSIDE RECORDS SUMMARY | 2023-09-26 02:04 | External Medical Summary ---
Author Name Unknown Address Unknown Organization [id number]:[facility] [place] [address] Laboratory Report Ordering Provider Test Date Status JEREMY NETTLES 03/14/2022 08:32:43 Final Observation Date Value Abnormality Reference (Units ) Status BUN 03/14/2022 08:32:43 22 Above high normal 6-20 (mg/dL) Final Creatinine 03/14/2022 08:32:43 1.2 0.6-1.2 (mg/dL) Final Glomerular filtration rate/1.73 sq M.predicted [Volume Rate/Area] in Serum, Plasma or Blood by Creatinine-based formula (CKD-EPI) 03/14/2022 08:32:43 70 >=60 (mL/min) Final eGFR is calculated based on the CKD-EPI 2020 equation Sodium 03/14/2022 08:32:43 143 135-146 (m mol/L) Final Potassium 03/14/2022 08:32:43 4.3 3.5-5.1 (m mol/L) Final Cl 03/14/2022 08:32:43 103 98-107 (mm ol/L) Final CO2 03/14/2022 08:32:43 29 22-32 (mmo l/L) Final Anion gap 03/14/2022 08:32:43 11 7-15 (mmol /L) Final Glucose 03/14/2022 08:32:43 96 70-120 (mg /dL) Final Calcium 03/14/2022 08:32:43 9.5 8.4-10.2 ( mg/dL) Final Performing Location [facility] [address] [place] [address]
--- OUTSIDE RECORDS SUMMARY | 2023-09-26 02:04 | External Medical Summary | Summary of Care ---
Author Name Unknown Organization [place] [address] Care Team Providers Care Business Development Specialist Name Role Phone Farooq Rodríguez DO Primary Care Provider [phone] Reason for Visit * Reason Comments Outpatient Testing Encounter Details Date Type Department Care Team Description 03/14/2022 Laboratory [address] [facility] [address] [place] [address] [facility] [address] [place] [id number] HTN, goal below 140/90; Acquired hypothyroidism Allergies No known active allergiesdocumented as of this encounter (statuses as of 03/14/2022) Medications Medication Sig Dispensed Refills Start Date End Date Status ASPIRIN 81 MG PO TABS One daily 0 Active ZYRTEC ALLERGY 10 MG PO TABS one daily 0 Active ALBUTEROL SULFATE (2.5 MG/3ML) 0.083% IN [facility] one vial every 6 hours as needed 0 Active HM VITAMIN D3 2000 UNITS [...] 400 Units by mouth daily. 0 Active [place]-3 Fatty Acids (OMEGA 3 500) 500 MG [...] once daily 90 Tab 3 07/04/2021 Active Potassium Chloride ER 10 MEQ Oral Tablet Extended ReleaseIndications:H TN, goal below 140/90 Take 1 tablet by mouth once daily 90 Tab 2 07/05/2021 Active Meclizine HCl 25 MG Oral Tablet (Antivert) TAKE 1 TABLET BY MOUTH THREE TIMES DAILY NEEDED FOR DIZZINESS 30 Tab 5 08/08/2021 Active Amitriptyline HCl 25 MG Oral Tablet (Elavil)Indications: Migraine variant TAKE 1 TABLET BY MOUTH AT BEDTIME 30 Tablet 3 12/02/2021 Active Furosemide 40 MG Oral Tablet (Lasix)Indications:H TN, goal below 140/90 Take 1 tablet by mouth once daily 90 Tablet 2 12/13/2021 Active Euthyrox 75 MCG Oral Tablet (levothyroxine)Indic ations:Hypothyroidis m TAKE 1 TABLET BY MOUTH ONCE DAILY IN THE MORNING ON AN EMPTY STOMACH WITH A FULL GLASS OF WATER 90 Tablet 1 12/13/2021 Active tiZANidine HCl 4 MG Oral [...] the morning. 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 Pneumonia due to other virus not elsewhere class ified 12/24/2002 04/29/2021 documented as of this encounter (statuses as of 03/14/2022) Immunizations Name Administration Dates Next Due COVID-19 mRNA, LNP-s, No Pre serve, 2-Dose Series ([employer]) 04/09/2021,03/19/2021 Pneumococcal Conjugate Vacc, 13 Valent [...] Encounters Date Type Specialty Care Team Description 04/13/2022 Imaging Radiology 04/25/2022 Office Visit Family Medicine Samantha Soto PA-C [address] [place] [address] 05/11/2022 Cardiac Studies Cardiac Studies 05/18/2022 Office Visit Cardiology Kath Carlin PA-C [address] [place] [place] [address] 05/30/2022 Office Visit Orthopedics Nima Cox DO [address] [place] [address] Pending Results Name Type Priority Associated Diagnoses Date /Time BASIC METABOLIC PANEL Lab Routine HTN, goal below 140/90 03/14/2022 8:32 AM EDT TSH WITH FREE T4 IF INDICATED Lab Routine Acquired hypothyroidism 03/14/2022 8:32 AM EDT Scheduled Procedures Name Priority Associated Diagnoses Date/Ti me COLONOSCOPY FLEXIBLE PROXIMA L DIAGNOSTIC Recall Encounter for screening colonoscopy Health Maintenance Due Date Last Done Comments Cologuard: Ages 45-75 2007 FOBT: Ages 45-75 2007 Sigmoidoscopy: Ages 45-75 2007 COVID-19 Vaccine (3 - Booster for Pfizer series) 09/09/2021 04/09/2021, 03/19/2021 TSH FOR THYROID MEDICATION MONITORING YEARLY 12/22/2021 12/22/2020, 11/21/2019, 08/22/2019, Additional history exists BASIC METABOLIC PANEL (BMP) FOR HTN YEARLY 03/21/2022 03/21/2021, 12/22/2020, 11/21/2019, Additional history exists Depression Screening, Annual for Pts 12 and Over 04/29/2022 04/29/2021 Influenza Vaccine (FLU shot) (Season Ended) 2022 09/02/2020, 09/02/2020, 08/18/2020, Additional history exists DIABETES SCREEN EVERY 3 YRS-AGE 45 AND ABOVE 03/21/2024 03/21/2021, 12/22/2020, 11/21/2019, Additional history exists Colonoscopy: Ages 45-75 11/26/2025 [...] HTN, goal below 140/90 Unspecified essential hypertension Acquired hypothyroidism Unspecified hypothyroidism documented in this encounter Advance Directives Documents on File Type Date Recorded Patient Sample Builder Expl anation Advanced Directive Advanced Directive Advanced [...] Directive Advanced Directive Advanced Directive Care Teams Business Development Specialist Relationship Specialty Start Date End Date Farooq Rodríguez, DO [address] [place] [address] PCP - General Family Medicine 08/22/19 documented as of this encounter
--- OUTSIDE RECORDS SUMMARY | 2023-09-26 02:04 | External Medical Summary | Summary of Care ---
Author Name Unknown Organization [place] [address] Care Team Providers Care Mail Order Biller Name Role Phone Kelly Mitchell DO Primary Care Provider [phone] Reason for Visit * Reason Comments eRx-Medication Refill Encounter Details Date Type Department Care Team Description 04/09/2022 Refill Family Practice [facility] [address] [place] [address] Kelly Mitchell DO [address] [place] [address] Migraine variant; HTN, goal below 140/90 Allergies No known active allergiesdocumented as of this encounter (statuses as of 04/10/2022) Medications Medication Sig Dispensed Refills Start Date End Date Status ASPIRIN 81 MG PO TABS One daily 0 Active ZYRTEC ALLERGY 10 MG PO TABS one daily 0 Active ALBUTEROL SULFATE (2.5 MG/3ML) 0.083% IN [facility] one vial every 6 hours [...] 400 Units by mouth daily. 0 Active [place]-3 Fatty Acids (OMEGA 3 500) 500 MG CAPS Take by mouth. 0 Acti ve Azelastine HCl 0.1 % nasal sprayIndications: Chronic rhinitis USE 2 SPRAY(S) IN EACH NOSTRIL TWICE DAILY 90 mL 1 04/03/2019 Active Atorvastatin Calcium 40 MG Oral Tablet (Lipitor)Indicati ons:CAD (coronary artery disease) Take 1 tablet by mouth once daily 90 Tab 3 05/16/2021 Active Lisinopril 40 MG Oral TabletIndications :HTN, goal below 140/90 Take 1 tablet by mouth once daily 90 Tab 3 07/04/2021 Active Meclizine HCl 25 MG Oral Tablet (Antivert) TAKE 1 TABLET BY MOUTH THREE TIMES DAILY NEEDED FOR DIZZINESS 30 Tab 5 08/08/2021 Active Furosemide 40 MG Oral Tablet (Lasix)Indication [...] 02/14/2022 Active Gabapentin 300 MG Oral Capsule (Neurontin)Indica [...] once daily 90 Tablet 1 04/10/2022 Active Potassium Chloride ER 10 MEQ Oral Tablet Extended ReleaseIndication s:HTN, goal below 140/90 Take 1 tablet by mouth once daily 90 Tab 2 07/05/2021 2 Discontinued Amitriptyline HCl 25 MG Oral Tablet (Elavil)Indicatio ns:Migraine variant TAKE 1 TABLET BY MOUTH AT BEDTIME 30 Tablet 3 12/02/2021 2 Discontinued documented as of this encounter (statuses as of 04/10/2022) Active Problems Problem Noted Date Chest pain [...] as of this encounter (statuses as of 04/10/2022) Resolved Problems Problem Noted Date Resolved Date Encounter for surveillance of abnormal nevi 03/2004/29/2021 Dyslipidemia, goal LDL below 100 06/01/2014 12/08/2015 Hypoactive thyroid 01/07/2013 12/11/2016 Bronchiectasis 04/18/2003 06/12/[address] syndrome 01/17/2003 02/10/2021 Pneumonia due to other virus not elsewhere class ified 12/24/2002 04/29/2021 documented as of this encounter (statuses as of 04/10/2022) Immunizations Name Administration Dates Next Due COVID-19 [...] encounter Miscellaneous Notes * Telephone Encounter - Freddy Williamson RPh - 04/10/2022 1:32 PM EDT Signed Prescriptions: Disp Refills Amitriptyline HCl 25 MG Oral Tablet (Elavi*90 Tab*1 Sig: TAKE 1 TABLET BY MOUTH AT BEDTIMEAuthorizing Provider: KELLY MITCHELL User: FREDDY WILLIAMSON Potassium Chloride ER 10 MEQ Oral Tablet E*90 Tab*1 Sig: Take 1 tablet by mouth once dailyAuthorizing Provider: KELLY MITCHELL User: FREDDY WILLIAMSON documented in this encounter Plan of Treatment Upcoming Encounters Date Type Specialty Care Team Description 04/13/2022 Imaging Radiology 04/25/2022 Office Visit Family Medicine Samantha Soto PA-C [address] [place] [address] 05/11/2022 Cardiac Studies Cardiac Studies 05/18/2022 Office Visit Cardiology Kath Carlin PA-C [address] [place] [address] 05/30/2022 Office Visit Orthopedics Nima Cox DO [address] [place] [address] Scheduled Procedures Name Priority Associated Diagnoses Date/Ti [...] intractable migraine without mention of status migrainosus HTN, goal below 140/90 Unspecified essential hypertension documented in this encounter Advance Directives Documents on File Type Date Recorded Patient Electric Appliance Installer Expl anation Advanced Directive Advanced Directive Advanced [...] Directive Advanced Directive Advanced Directive Care Teams Mail Order Biller Relationship Specialty Start Date End Date Kelly Mitchell, DO [address] [place] [address] PCP - General Family Medicine 08/22/19 documented as of this encounter
--- OUTSIDE RECORDS SUMMARY | 2023-09-26 02:04 | External Medical Summary | Summary of Care ---
Author Name Unknown Organization [facility] Address [place] [address] Care Team Providers Care Tin Flipper Name Role Phone AntolinFaoroq roger Primary Care Provider [phone] Encounter Details Date Type Department Care Team Description 03/27/2022 Scan Encounter Family Practice [facility] [address] [facility] [place] [address] Samantha Soto PA-C [address] [facility] [place] [address] <No scans attached> Allergies No known active allergiesdocumented as of this encounter (statuses as of 03/30/2022) Medications Medication Sig Dispensed Refills Start Date End Date Status ASPIRIN 81 MG PO TABS One daily 0 Active ZYRTEC ALLERGY 10 MG PO TABS one daily 0 Active ALBUTEROL SULFATE (2.5 MG/3ML) 0.083% IN [facility] one vial every 6 hours as needed [...] 400 Units by mouth daily. 0 Active [place]-3 Fatty Acids (OMEGA 3 500) 500 MG [...] other meds). 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 Pneumonia due to other virus not elsewhere class ified 12/24/2002 04/29/2021 documented as of this encounter (statuses as of 03/30/2022) Immunizations Name Administration Dates Next Due COVID-19 mRNA, LNP-s, No Pre serve, 2-Dose Series (LXSN) 04/09/2021,03/19/2021 Pneumococcal Conjugate Vacc, 13 Valent (Prevnar) [...] Visit Family Medicine Samantha Soto PA-C [address] [facility] [place] [address] 05/11/2022 Cardiac Studies Cardiac Studies 05/18/2022 Office Visit Cardiology Kath Carlin PA-C [address] [place] [address] 05/30/2022 Office Visit Orthopedics Nima Cox DO [address] [place] [address] Scheduled Procedures Name Priority Associated Diagnoses Date/Ti [...] Documents on File Type Date Recorded Patient Teaching Aide Expl anation Advanced Directive Advanced Directive Advanced [...] Directive Advanced Directive Advanced Directive Care Teams Tin Flipper Relationship Specialty Start Date End Date Farooq Rodríguez, DO [address] [place] [address] PCP - General Family Medicine 08/22/19 documented as of this encounter
--- OUTSIDE RECORDS SUMMARY | 2023-09-26 02:04 | External Medical Summary | Summary of Care ---
Author Name Unknown Organization [facility] Address [place] [address] Care Team Providers Care Numerical Control Drill Press Operator Name Role Phone AntolinFarooq roger Primary Care Provider [phone] Encounter Details Date Type Department Care Team Description 03/15/2022 Orders Only Family Practice [facility] [place] [address] [facility] [place] [address] Samantha Soto PA-C [address] [facility] [place] [address] Hypothyroidism Allergies No known active allergiesdocumented as of this encounter (statuses as of 03/15/2022) Medications Medication Sig Dispensed Refills Start Date End Date Status ASPIRIN 81 MG PO TABS One daily 0 Active ZYRTEC ALLERGY 10 MG PO TABS one daily 0 Active ALBUTEROL SULFATE (2.5 MG/3ML) 0.083% IN [facility] one vial every 6 hours as [...] 400 Units by mouth daily. 0 Active [place]-3 Fatty Acids (OMEGA 3 500) 500 MG [...] 12/02/2021 Active Furosemide 40 MG Oral Tablet (Lasix)Indication [...] other meds). 90 Tablet 1 03/15/2022 Active Euthyrox 75 MCG Oral Tablet (levothyroxine)In dications:Hypothy roidism TAKE 1 TABLET BY MOUTH ONCE DAILY IN THE MORNING ON AN EMPTY STOMACH WITH A FULL GLASS OF WATER 90 Tablet 1 12/13/2021 03/15/2022 Discontinue d(Refill) documented as of this encounter (statuses as of 03/15/2022) Active Problems Problem Noted Date Chest pain [...] as of this encounter (statuses as of 03/15/2022) Resolved Problems Problem Noted Date Resolved Date Encounter for surveillance of abnormal nevi 03/2004/29/2021 Dyslipidemia, goal LDL below 100 06/01/2014 12/08/2015 Hypoactive thyroid 01/07/2013 12/11/2016 Bronchiectasis 04/18/2003 06/12/2017 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 Pneumonia due to other virus not elsewhere class ified 12/24/2002 04/29/2021 documented as of this encounter (statuses as of 03/15/2022) Immunizations Name Administration Dates Next Due COVID-19 [...] Family Medicine Samantha S[facility] PA-C [address] [facility] [address] 05/11/2022 Cardiac Studies Cardiac Studies 05/18/2022 Office Visit Cardiology Kath Carlin PA-C [address] [place] [address] 05/30/2022 Office Visit Orthopedics Nima Cox DO [address] [place] [address] Scheduled Orders Name Type Priority Associated Diagnoses Orde r Schedule TSH WITH FREE T4 IF INDICATED Lab Routine Hypothyroidism Expected: 05/15/2022 (Approximate), Expires: 03/15/2023 Scheduled Procedures Name Priority Associated Diagnoses Date/Ti [...] Documents on File Type Date Recorded Patient National Van Owner Operator Expl anation Advanced Directive Advanced Directive [...] Directive Advanced Directive Advanced Directive Care Teams Numerical Control Drill Press Operator Relationship Specialty Start Date End Date Farooq Rodríguez, DO [address] [place] [address] PCP - General Family Medicine 08/22/19 documented as of this encounter
--- OUTSIDE RECORDS SUMMARY | 2023-09-26 02:04 | External Medical Summary | Summary of Care ---
Author Name Unknown Organization [place] [address] Care Team Providers Care Chartered Accountant Name Role Phone Farooq Rodríguez Primary Care Provider [phone] Reason for Referral * Precert (Within 10 days (routine)) - Pending Review Specialty Diagnoses / Procedures Referred By Contac t Referred To Contact Radiology Diagnoses Acute low back pain without sciatica, unspecified back pain laterality Procedures MRI L SPINE WO CONTRAST Samantha Soto PA-C [address] [facility] [place] [address] Referral ID Status Reason Start Date Expiration Date V isits Requested Visits Authorized [id number] Pending Review 04/13/2022 1 1 Reason for Visit * Reason Comments Follow Up pain Encounter Details Date Type Department Care Team Description 03/14/2022 Office Visit Family Practice [facility] [place] [address] [place] [address] Samantha Soto PA-C [address] [facility] [place] [address] Acute low back pain without sciatica, unspecified back pain laterality*; HTN, goal below 140/90; Acquired hypothyroidism Allergies No known active allergiesdocumented as of this encounter (statuses as of 03/14/2022) Medications Medication Sig Dispensed Refills Start Date End Date Status ASPIRIN 81 MG PO TABS One daily 0 Active ZYRTEC ALLERGY 10 MG PO TABS one daily 0 Active ALBUTEROL SULFATE (2.5 MG/3ML) 0.083% IN [facility] one vial every 6 hours as needed [...] 400 Units by mouth daily. 0 Active [place]-3 Fatty Acids (OMEGA 3 500) 500 MG [...] 12/13/2021 Active Euthyrox 75 MCG Oral Tablet (levothyroxine)In [...] the morning. 90 Tablet 3 02/14/2022 Active Tamsulosin HCl 0.4 MG Oral Capsule (FLOMAX)Indicatio ns:Gross hematuria Take 0.4 mg by mouth daily. 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 Pneumonia due to other virus not elsewhere class ified 12/24/2002 04/29/2021 documented as of this encounter (statuses as of 03/14/2022) Immunizations Name Administration Dates Next Due COVID-19 mRNA, LNP-s, No Pre serve, 2-Dose Series (Alcresta) 04/09/2021,03/19/2021 Pneumococcal Conjugate Vacc, 13 Valent (Prevnar) [...] Sign Reading Time Taken Comments Blood Pressure 122/90 03/14/2022 7:55 AM EDT Pulse 71 03/14/2022 7:55 AM EDT Temperature 36.5 C (97.7 F) 03/14/2022 7:55 AM ED T Respiratory Rate 20 03/14/2022 7:55 AM EDT Oxygen Saturation 98% 03/14/2022 7:55 AM EDT Inhaled Oxygen Concentration - - Weight 119.3 kg (263 lb) 03/14/2022 7:55 AM EDT Height - - Body Mass Index 39.99 02/14/2022 7:46 AM EDT documented in this encounter Progress Notes * Samantha Soto PA-C - 03/14/2022 8:07 AM EDT CC: recheck low back pain Nursing Notes: Lynn Padron LPN 03/14/22 0807 Signed Placido Dean presents for 1 month recheck. Medications & HM reviewed. Patient still doing PT which is helping some but he's still having a lot of pain. HPI: Placido Dean is a 61 year old male who presents for ongoing back pain for months despite doingPT. Pt reports he is about 1/2 way through his PT and it is only helping a little bit. Trying to do daily activities is causing excruciating pain. Most recent episode two days ago. Pain was at least a 5/10, it kept him up until 10pm laying on heat. Barely slept. Legs are not bothering him lately. Stillcan't bend down to put sock on. Denies numbness or tingling distally. 02/14/22:"Pt has gone to PT since last visit. Bought a special mat to stand on as he still cant stand for long periods of time. Knees and hips are bothering him as well. Left knee and right hip are the worst. Feels fluid on left knee. Pain is a 3-4/10. This has been ongoing for years, just can't do what he needs to do anymore." 01/17/22: "Low back pain for months, located on the center and wraps to hips and down his legs. Feelsweak, like he has to pickle solution maker his legs with his hands at times. Does have shooting pains. On right side I comes around and down lateral side of leg on left wraps to groin and shoots down front. Pain is a 3/10. Cant site of stand for long periods of times. Occ. Motrin that does help. Has also seen chiropractor that does help too. Pt denies headache, fevers, confusion, numbness/tingling of extremities, saddle paraesthesias, loss of bowel or bladder habits." Review of Systems: CONSTITUTIONAL: No generalized weakness, [...] months Pericardial effusion 01/2003 [place] [facility] [place]ilonidal [place] without infection Past Surgical History: Procedure Laterality Date BRONCHOSCOPY W/ BRONCHIAL BIOPSY 2002 biopsy, open and bronchoscopy COLONOSCOPY, DIAGNOSTIC (RECTUM) 11/29/2012 COLONOSCOPY FLEXIBLE PROXIMAL DIAGNOSTIC performed by Cristy Dobbs DO at ENDOSCOPY [facility] COLONOSCOPY, DIAGNOSTIC (RECTUM) 11/26/2015 diverticulosis, repeat 10 yrs/COLONOSCOPY FLEXIBLE PROXIMAL DIAGNOSTIC performed by Cristy Dobbs DO at ENDOSCOPY [facility] DENTAL SURGERY PROCEDURE NEC Dental Surgery Procedure DRAINAGE OF HEART SAC 2002 [facility] REMOVAL OF WRIST LESION Social History Tobacco [...] COVID-19 mRNA, LNP-s, No Preserve, 2-Dose Series (Alcresta) 03/19/2021, 04/09/2021 Pneumococcal Conjugate Vacc, 13 Valent [...] ALBUTEROL SULFATE (2.5 MG/3ML) 0.083% IN [facility] one vial every 6 hours as needed (Patient not taking: No sig reported) HM VITAMIN D3 2000 UNITS PO CAPS [...] Capsule Take 400 Units by mouth daily. [place]-3 Fatty Acids (OMEGA 3 500) 500 MG CAPS Take by mouth. Azelastine HCl 0.1 % nasal spray USE 2 SPRAY(S) IN EACH NOSTRIL TWICE DAILY 90 mL 1 Atorvastatin Calcium 40 MG Oral Tablet (Lipitor) Take 1 tablet by mouth once daily 90 Tab 3 Lisinopril 40 MG Oral Tablet Take 1 tablet by mouth once daily 90 Tab 3 Potassium Chloride ER 10 MEQ Oral Tablet Extended Release Take 1 tablet by mouth once daily 90 Tab 2 Meclizine HCl 25 MG Oral Tablet (Antivert) TAKE 1 TABLET BY MOUTH THREE TIMES DAILY NEEDED FOR DIZZINESS 30 Tab 5 Amitriptyline HCl 25 MG Oral Tablet (Elavil) TAKE 1 TABLET BY MOUTH AT BEDTIME 30 Tablet 3 Furosemide 40 MG Oral Tablet (Lasix) Take 1 tablet by mouth once daily 90 Tablet 2 Euthyrox 75 MCG Oral Tablet (levothyroxine) TAKE 1 TABLET BY MOUTH ONCE DAILY IN THE MORNING DENIS EMPTY STOMACH WITH A FULL GLASS OF WATER 90 Tablet 1 tiZANidine HCl 4 MG [...] Tablet in the morning. 90 Tablet 3 No current facility-administered medications for this visit. Review of patient's allergies indicates: No Known Allergies Patient's past medical, surgical, family, and social history were reviewed. Medications, allergies, immunizations, and health care maintenance screenings were also reviewed. Physical exam: BP 122/90 | Pulse 71 | Temp 36.5 C (97.7 F) (Tympanic) | Resp 20 | Wt 119.3 kg (263 lb) | SpO2 98% | BMI 39.99 kg/m | BSA 2.39 m GENERAL: alert, healthy and no distress Respiratory: No coughing or audible wheezing. Pt speaking in complete unlabored sentences. BACK: back symmetric, no curvature, no costovertebral angle tenderness, no curvature to forward bending, no skin lesions, erythema or scars, Normal DTRs of patella and ankles bilaterally, Normal heelwalk and toe walk, without evidence of muscle weakness, Some limitation of flexion, R SI tenderness, +R slt and RUDI, Neg LEFT SLT AND RUDI EXTREMITIES: less than 2 second capillary refill, no joint deformities, effusion, or inflammation, Full ROM, Pulses Intact, Strength equal bilaterally SKIN: skin color, texture, turgor are normal, no rashes or significant lesions Assessment/Plan: Acute low back pain without sciatica, unspecified back pain laterality (Primary) - MRI L SPINE WO CONTRAST; Future; Expected date: 04/13/2022 HTN, goal below 140/90 - BASIC METABOLIC PANEL; Future; Expected date: 03/14/2022 Acquired hypothyroidism - TSH WITH FREE T4 IF INDICATED; Future; Expected date: 03/14/2022 Given worsening pain despite physical therapy and pain greater than 3 months at this time, recommend MRI. Pt to schedule in the next month. Return if sxs suddenly worsen. Discussed red flags that warrant ER Eval. Patient goals for plan of care were discussed. Follow Up: Recommend re-evaluation if not improving or if symptoms worsen. Samantha Soto PA-C [address] [place] [address] documented in this encounter Nursing Notes * Lynn Padron LPN - 03/14/2022 7:55 AM EDT Placido Dean presents for 1 month recheck. Medications & HM reviewed. Patient still doing PT which is helping some but he's still having a lot of pain. documented in this encounter Plan of Treatment Upcoming Encounters Date Type Specialty Care Team Description 04/13/2022 Imaging Radiology 04/25/2022 Office Visit Family Medicine Samantha Soto PA-C [address] [facility] [place] [address] 05/11/2022 Cardiac Studies Cardiac Studies 05/18/2022 Office Visit Cardiology Kath Carlin PA-C [address] [place] [address] 05/30/2022 Office Visit Orthopedics Niam Cox DO [address] [place] [address] Pending Results Name Type Priority Associated Diagnoses Date /Time BASIC METABOLIC PANEL Lab Routine HTN, goal below 140/90 03/14/2022 8:32 AM EDT TSH WITH FREE T4 IF INDICATED Lab Routine Acquired hypothyroidism 03/14/2022 8:32 AM EDT Scheduled Orders Name Type Priority Associated Diagnoses Orde r Schedule MRI L SPINE WO CONTRAST Medical Imaging Routine Acute low back pain without sciatica, unspecified back pain laterality Expected: 04/13/2022, Expires: 04/13/2023 BASIC METABOLIC PANEL Lab Routine HTN, goal below 140/90 Expected: 03/14/2022 (Approximate), Expires: 03/14/2023 TSH WITH FREE T4 IF INDICATED Lab Routine Acquired hypothyroidism Expected: 03/14/2022 (Approximate), Expires: 03/14/2023 Scheduled Procedures Name Priority Associated Diagnoses Date/Ti [...] without sciatica, unspecified back pain laterality- Primary HTN, goal below 140/90 Unspecified essential hypertension Acquired hypothyroidism Unspecified hypothyroidism documented in this encounter Advance Directives Documents on File Type Date Recorded Patient Rn Primary Care Expl anation Advanced Directive Advanced Directive Advanced [...] Directive Advanced Directive Advanced Directive Care Teams Chartered Accountant Relationship Specialty Start Date End Date Farooq Rodríguez, DO [address] [place] [address] PCP - General Family Medicine 08/22/19 documented as of this encounter
--- OUTSIDE RECORDS SUMMARY | 2023-09-26 02:05 | External Medical Summary | Summary of Care ---
Author Name Unknown Organization [place] [address] Care Team Providers Care Ring Cutter Lathe Operator Name Role Phone AntolinFarooq roger Primary Care Provider [phone] Reason for Visit * Reason Comments NEW PATIENT L knee * Evaluate & Treat - Unlimited Visits (Within 10 days (routine)) - Pending Review Specialty Diagnoses / Procedures Referred By Marlon t Referred To Contact Orthopaedic Surgery / Orthopedics Diagnoses Chronic pain of left knee Hip pain, right Samantha Soto PA-C [address] [place] [address] Referral ID Status Reason Start Date Expiration Date Visits Requested Visits Authorized [id number] Pending Review Specialty Services Required 02/14/2022 1 1 Encounter Details Date Type Department Care Team Description 02/28/2022 Office [facility] [address] Nima [facility] [address] Primary osteoarthritis of left knee* Allergies No known active allergiesdocumented as of this encounter (statuses as of 02/28/2022) Medications Medication Sig Dispensed Refills Start Date [...] 400 Units by mouth daily. 0 Active [place]-3 Fatty Acids (OMEGA 3 500) 500 MG CAPS Take by mouth. 0 Active Azelastine HCl 0.1 % nasal sprayIndications:Chr onic rhinitis USE 2 SPRAY(S) IN EACH NOSTRIL TWICE DAILY 90 mL 1 04/03/2019 Active Tamsulosin HCl 0.4 MG Oral Capsule (FLOMAX)Indications: Gross hematuria Take 0.4 mg by mouth daily. 0 Active Atorvastatin Calcium 40 MG Oral Tablet [...] Muscle spasms. 30 Tablet 0 01/17/2022 Active predniSONE 10 MG Oral Tablet (Deltasone)Indicatio ns:Acute low back pain without sciatica, unspecified back pain laterality Take 5 tabs for 2 days, 4 tabs for 2 days, 3 tabs for 2 days, 2 tabs for 2 days 1 tab for 2 days 30 Tablet 0 01/17/2022 Active Spironolactone 25 [...] the morning. 90 Tablet 3 02/14/2022 Active Hospital, Clinic, or Other Facility Administered Medication Ordered Dose Route Frequency Start Date End Date Status lidocaine 1% 1 mL - triamcinolone acetonide 40 mg/mL 1 mL inj 2 mLIndications:Primary osteoarthritis of left knee 2 mL IJ ONCE 02/28/2022 02/29/20 22 Ended documented as of this encounter (statuses as of 02/28/2022) Active Problems Problem Noted Date Chest pain [...] as of this encounter (statuses as of 02/28/2022) Resolved Problems Problem Noted Date Resolved Date Encounter for surveillance of abnormal nevi 03/2004/29/2021 Dyslipidemia, goal LDL below 100 06/01/2014 12/08/2015 Hypoactive thyroid 01/07/2013 12/11/2016 Bronchiectasis 04/18/2003 06/12/2017 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 Consult requested by Samantha Soto PA-C. Placido Woodward is here unaccompanied Date of Injury: no injury, pain since 2020 Quality: reviewed and agree with Nursing Notes for HPI elements History: History - pain hurts going up and down steps Modifying factors: activity exacerbates Associated symptoms: Swelling - positive rare , locking - negative , Knee giving way - positive rare Patient has tried ibuprofen and tylenol. 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 Employer: [employer] Comment: Prec[employer] 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 Employer: [employer] Occupation: [employer] Employer: [employer] 1[employer] Tobacco Use Smoking status: Never Smoker Smokeless tobacco: Former User Types: Chew Tobacco comment: quit Substance and Sexual Activity Alcohol use: Yes [...] Not Asked Social History Narrative born in [place], life long resident Social Determinants of Health Financial Resource Strain: Not on file Food Insecurity: Not on file Transportation Needs: Not on file Physical Activity: Not on file Stress: Not on file Social Connections: Not on file Intimate Partner Violence: Not on file Housing Stability: Not on file Current Outpatient Medications Medication Sig Dispense Refill [...] Capsule Take 400 Units by mouth daily. Mascotte-3 Fatty Acids (OMEGA 3 500) 500 MG CAPS Take by mouth. Azelastine HCl 0.1 % nasal spray USE 2 SPRAY(S) IN EACH NOSTRIL TWICE DAILY 90 mL 1 Tamsulosin HCl 0.4 MG Oral Capsule (FLOMAX) Take 0.4 mg by mouth daily. (Patient not taking: Reported on 11/10/2021) Atorvastatin Calcium 40 MG Oral Tablet (Lipitor) [...] needed for Muscle spasms. 30 Tablet 0 predniSONE 10 MG Oral Tablet (Deltasone) Take 5 tabs for 2 days, 4 tabs for 2 days, 3 tabs for 2 days, 2 tabs for 2 days 1 tab for 2 days 30 Tablet 0 Spironolactone 25 MG Oral [...] negative Bilateral Palpation: tenderness to palpation medial jt line on the left ROM: R - Flexion - 110 degrees, Extension - 0 degrees L - Flexion - 110 degrees, Extension -0 degrees R- Strength: Extension - 5/5 Flexion - 5/5 L - Strength: Extension - 5/5 Flexion - 5/5 quadriceps tone is Poor Ligament tests/stability: Grossly normal Meniscus tests: Cassidy - negative Bilateral Popliteal mass - negative Bilateral Patellar tests: Olman's negative Left Grind negative Left Radiology (I have personally reviewed the films done today): Left knee x-ray reveals no fracture and mild medial OA Assessment and Plan: [facility] knee sleeve, reviewed dosing and use of osteobioflex, will start with IA steroids then f/u 3 months to consider MADRID and PRP 1) Chronic pain of left knee (Primary) - XR KNEE 3 VIEWS Primary osteoarthritis of left knee - lidocaine 1% 1 mL - triamcinolone acetonide 40 mg/mL 1 mL inj 2 mL - INJECT MAJOR JX/BURSA W/O US GUIDE Nima Cox DO Primary Care Sports Medicine Orthopaedics [facility] [address] [place] [address] Procedure note (knee injection), left : Time [...] documented in this encounter Nursing Notes * Gayle Schmitz LPN - 02/28/2022 7:47 AM EDT New Patient Here for todays visit regarding: Knee Side: left Injury: Pulled hamstring approx 1985 Recent Imaging: today Prior treatment: PT currently for knees, hips, back Goals for this appointment: Unsure. Would like to increase ROM documented in this encounter Plan of Treatment Upcoming Encounters Date Type Specialty Care Team Description 03/14/2022 Office Visit Family Medicine Samantha Soto PA-C [address] [facility] [place] [address] 05/11/2022 Cardiac Studies Cardiac Studies 05/18/2022 Office Visit Cardiology Kath Carlin PA-C [address] [place] [place] [address] 05/30/2022 Office Visit Orthopedics Nima Cox DO [address] [place] [address] Pending Results Name Type Priority Associated Diagnoses Date /Time XR KNEE 3 VIEWS Medical Imaging Routine 02/17 8:03 AM EDT Scheduled Orders Name Type Priority Associated Diagnoses Orde r Schedule INJECT MAJOR JX/BURSA W/O US GUIDE Procedures Routine Primary osteoarthritis of left knee Ordered: 02/28/2022 Scheduled Procedures Name Priority Associated Diagnoses Date/Ti [...] 2 mL 2 mL, Injection, ONCE, On Sun02/28/22 at 0915, For 1 dose, Lidocaine 1% 1mL Triamcinolone Acetonide 40 mg/mL 1 mL (Final concentration = 20 mg/mL) REFRIGERATE and SHAKE WELL Given 02/28/2022 8:37 AM EDT 2 mL Knee Left documented in this encounter Advance Directives Documents on File Type Date Recorded Patient Fitter Up Expl anation Advanced Directive Advanced Directive Advanced [...] Directive Advanced Directive Advanced Directive Care Teams Ring Cutter Lathe Operator Relationship Specialty Start Date End Date Farooq Rodríguez, DO [address] [facility] [place] [address] PCP - General Family Medicine 08/22/19 documented as of this encounter
--- OUTSIDE RECORDS SUMMARY | 2023-09-26 02:05 | External Medical Summary ---
Author Name Unknown Address Unknown Organization K01:[facility] [address] [place] [address] [place] [address] Laboratory Report Ordering Provider Test Date Status JEREMY NETTLES 03/14/2022 08:32:43 Final Observation Date Value Abnormality Reference (Units ) Status T4, Free 03/14/2022 08:32:43 1.3 0.9-1.7 (n g/dL) Final Performing Location [facility] - [address] [place] [address]
--- OUTSIDE RECORDS SUMMARY | 2023-09-26 02:05 | External Medical Summary | Summary of Care ---
Author Name Unknown Organization [place] [address] Care Team Providers Care Vp Genetic Name Role Phone AntolinFarooq roger Primary Care Provider [phone] Reason for Visit * Reason Comments NEW PATIENT L knee * Evaluate & Treat - Unlimited Visits (Within 10 days (routine)) - Pending Review Specialty Diagnoses / Procedures Referred By Marlon t Referred To Contact Orthopaedic Surgery / Orthopedics Diagnoses Chronic pain of left knee Hip pain, right Samantha Soto PA-C [address] [place] [address] Referral ID Status Reason Start Date Expiration Date Visits Requested Visits Authorized [id number] Pending Review Specialty Services Required 02/14/2022 1 1 Encounter Details Date Type Department Care Team Description 02/28/2022 Office Visit [facility]opa[facility] [address] [facility] [address] Nima Cox[facility] [address] Primary osteoarthritis of left knee* Allergies No [...] 400 Units by mouth daily. 0 Active [place]-3 Fatty Acids (OMEGA 3 500) 500 MG [...] mRNA, LNP-s, No Pre serve, 2-Dose Series (Elevate) 04/09/2021,03/19/2021 Pneumococcal Conjugate Vacc, 13 Valent (Prevnar) [...] - 02/28/2022 8:22 AM EDT Placido Woodward [id number] Placido Woodward is a 61 year old male who presents for consultation to [facility] for left knee injury/pain. 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 [place]-3 Fatty Acids (OMEGA 3 500) 500 MG [...] and mild medial OA [facility] and Plan[facility] reviewed dosing and use [...] Cox DO Primary Care Sports Medicine Orthopaedics [facility] [address] [place] [address] Procedure note (knee injection), left : Time [...] Visit Family Medicine Samantha Soto PA-C [address] [place] [address] 05/11/2022 Cardiac Studies Cardiac Studies 05/18/2022 Office Visit Cardiology Kath Carlin PA-C [address] [address] 05/30/2022 Office Visit Orthopedics Nima Cox DO [address] [place] [address] Pending Results Name Type Priority Associated Diagnoses [...] Documents on File Type Date Recorded 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
--- OUTSIDE RECORDS SUMMARY | 2023-09-26 02:05 | External Medical Summary | Summary of Care ---
Author Name Unknown Organization [place] [address] Care Team Providers Care Pin Feather Machine Operator Name Role Phone Farooq Rodríguez DO Primary Care Provider [phone] Encounter Details Date Type Department Care Team Description 03/03/2022 Patient Reported Data Patient Survey Ortho OBERD Allergies No known active allergiesdocumented as of this encounter (statuses as of 03/03/2022) Medications Medication Sig Dispensed Refills Start Date [...] 400 Units by mouth daily. 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 Pneumonia due to other virus not elsewhere class ified 12/24/2002 04/29/2021 documented as of this encounter (statuses as of 03/03/2022) Immunizations Name Administration Dates Next Due COVID-19 [...] Family Medicine Samantha Soto PA-C [address] [place] [address] 05/11/2022 Cardiac Studies Cardiac Studies 05/18/2022 Office Visit Cardiology Ktah Carlin PA-C [address] [address] 05/30/2022 Office Visit Orthopedics Nima Cox DO [address] [address] Scheduled Procedures Name Priority Associated Diagnoses Date/Ti [...] Documents on File Type Date Recorded Patient Nanoelectronics Engineer Expl anation Advanced Directive Advanced Directive [...] Directive Advanced Directive Advanced Directive Care Teams Pin Feather Machine Operator Relationship Specialty Start Date End Date Farooq Rodríguez, DO [address] [place] [address] PCP - General Family Medicine 08/22/19 documented as of this encounter
--- OUTSIDE RECORDS SUMMARY | 2023-09-26 02:05 | External Medical Summary | Summary of Care ---
Author Name Unknown Organization [place] [address] Care Team Providers Care Ultra Sound Technician Name Role Phone AntolinFarooq roger Primary Care Provider [phone] Reason for Visit * Reason Comments NEW PATIENT L knee * Evaluate & Treat - Unlimited Visits (Within 10 days (routine)) - Pending Review Specialty Diagnoses / Procedures Referred By Marlon t Referred To Contact Orthopaedic Surgery / Orthopedics Diagnoses Chronic pain of left knee Hip pain, right Samantha Soto PA-C [address] [place] [address] Referral ID Status Reason Start Date Expiration Date Visits Requested Visits Authorized [id number] Pending Review Specialty Services Required 02/14/2022 1 1 Encounter Details Date Type Department Care Team Description 02/28/2022 Office Visit [facility] [address] Nima Cox[facility] [address] [facility] [address] Primary osteoarthritis of left knee* Allergies No [...] 400 Units by mouth daily. 0 Active [place]-3 Fatty Acids (OMEGA 3 500) 500 MG [...] mRNA, LNP-s, No Pre serve, 2-Dose Series (Cytocentrics) 04/09/2021,03/19/2021 Pneumococcal Conjugate Vacc, 13 Valent (Prevnar) [...] DO - 02/28/2022 8:22 AM EDT Placido Wodoward [id number] Placido Woodward is a 61 year old male who presents for consultation to [facility] Medicine for left knee injury/pain. 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 1125 Tobacco Use Smoking status: Never Smoker Smokeless [...] Not Asked Social History Narrative born in [place], life long resident Social Determinants of Health [...] Capsule Take 400 Units by mouth daily. [place]-3 Fatty Acids (OMEGA 3 500) 500 MG [...] and mild medial OA Assessment and Plan: [facility] knee sleeve, reviewed dosing and use of [...] Cox DO Primary Care Sports Medicine Orthopaedics [facility] [address] [place] [address] Procedure note (knee injection), left : Time [...] Visit Family Medicine Samantha Soto PA-C [address] [facility] [place] [address] 05/11/2022 Cardiac Studies Cardiac Studies 05/18/2022 Office Visit Cardiology Kath Carlin PA-C [address] [place] [address] 05/30/2022 Office Visit Orthopedics Nima Cox DO [address] [place] [place] [address] Pending Results Name Type Priority Associated Diagnoses [...] Documents on File Type Date Recorded Patient Board Certified Orthodontist Expl anation Advanced Directive Advanced Directive Advanced [...] Directive Advanced Directive Advanced Directive Care Teams Ultra Sound Technician Relationship Specialty Start Date End Date Farooq Rodríguez, DO [address] [place] [address] PCP - General Family Medicine 08/22/19 documented as of this encounter
--- OUTSIDE RECORDS SUMMARY | 2023-09-26 02:06 | External Medical Summary | Summary of Care ---
Author Name Unknown Organization [place] [address] Care Team Providers Care Pcat Instructor Name Role Phone Kelly Mitchell DO Primary Care Provider [phone] Reason for Visit * Reason Comments eRx-Medication Refill Encounter Details Date Type Department Care Team Description 12/12/2021 Refill Family Practice [facility] [address] [place] [place] [address] Kelly Mitchell DO [address] [facility] [place] [address] HTN, goal below 140/90; Hypothyroidism Allergies No known active allergiesdocumented as of this encounter (statuses as of 12/13/2021) Medications Medication Sig Dispensed Refills Start Date End Date Status ASPIRIN 81 MG PO TABS One daily 0 Active ZYRTEC ALLERGY 10 MG PO TABS one daily 0 Active ALBUTEROL SULFATE (2.5 MG/3ML) 0.083% IN [facility] one vial every 6 [...] 400 Units by mouth daily. 0 Active [place]-3 Fatty Acids (OMEGA 3 500) 500 MG CAPS Take by mouth. 0 Acti ve Azelastine HCl 0.1 % nasal sprayIndications: Chronic rhinitis USE 2 SPRAY(S) IN EACH NOSTRIL TWICE DAILY 90 mL 1 04/03/2019 Active Tamsulosin HCl 0.4 MG Oral Capsule (FLOMAX)Indicatio ns:Gross hematuria Take 0.4 mg by mouth daily. 0 Active Spironolactone 25 MG Oral Tablet (Aldactone) TAKE 1 TABLET BY MOUTH ONCE DAILY IN THE MORNING 90 Tab 3 01/31/2021 Active Atorvastatin Calcium 40 MG Oral Tablet [...] once daily 90 Tab 2 07/05/2021 Active predniSONE 20 MG Oral Tablet (Deltasone)Indica tions:Bronchitis, complicated 1 tab 3 times a day for 3 days, then 1 tab 2 times a day for 3 days, then 1 tab daily for 3 days 18 Tab 0 07/26/2021 Active Additional Information Patient not taking. Reported on 08/26/2021 Meclizine HCl 25 MG Oral Tablet (Antivert) [...] OF WATER 90 Tablet 1 12/13/2021 Active Euthyrox 75 MCG Oral Tablet (levothyroxine)In dications:Hypothy roidism TAKE 1 TABLET BY MOUTH ONCE DAILY IN THE MORNING ON AN EMPTY STOMACH WITH A FULL GLASS OF WATER 90 Tab 2 03/07/2021 2 Discontinued Furosemide 40 MG Oral Tablet (Lasix)Indication s:HTN, goal below 140/90 Take 1 tablet by mouth once daily 90 Tab 2 03/07/2021 2 Discontinued documented as of this encounter (statuses as of 12/13/2021) Active Problems Problem Noted Date Chest pain [...] as of this encounter (statuses as of 12/13/2021) Resolved Problems Problem Noted Date Resolved Date Encounter for surveillance of abnormal nevi 03/2004/29/2021 Dyslipidemia, goal LDL below 100 06/01/2014 12/08/2015 Hypoactive thyroid 01/07/2013 12/11/2016 Bronchiectasis 04/18/2003 06/12/2017 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 Pneumonia due to other virus not elsewhere class ified 12/24/2002 04/29/2021 documented as of this encounter (statuses as of 12/13/2021) Immunizations Name Administration Dates Next Due COVID-19 [...] encounter Miscellaneous Notes * Telephone Encounter - Arlen Salvador [facility] - 12/13/2021 11:39 AM EST Signed Prescriptions: Disp Refills Furosemide 40 MG Oral Tablet (Lasix) 90 Tab*2 Sig: Take 1 tabletby mouth once dailyAuthorizing Provider: KELLY MITCHELL User: ARLEN SALVADOR Euthyrox 75 MCG Oral Tablet (levothyroxine)90 Tab*1 Sig: TAKE 1 TABLET BY MOUTH ONCE DAILY IN THE MORNING ON AN EMPTY STOMACH WITH A FULL GLASS OF WATERAuthorizing Provider: KELLY MITCHELL User: ARLEN SALVADOR documented in this encounter Plan of Treatment Upcoming Encounters Date Type Specialty Care Team Description 03/03/2022 Office Visit Family Medicine Kelly Mitchell, DO [address] [place] [address] 05/11/2022 Cardiac Studies Cardiac Studies 05/18/2022 Office Visit Cardiology Kath Carlin PA-C [address] [facility] [place] [address] Scheduled Procedures Name Priority Associated Diagnoses Date/Ti me COLONOSCOPY FLEXIBLE PROXIMA L DIAGNOSTIC Recall Encounter for screening colonoscopy Health Maintenance Due Date Last Done Comments Influenza Vaccine (FLU shot) (#1) 2021 09/02/2020, 09/02/2020, 08/18/2020, Additional history exists COVID-19 Vaccine (3 - Booster for Pfizer series) 10/10/2021 04/09/2021, 03/19/2021 Depression Screening, Annual for Pts 12 and Over 04/29/2022 04/29/2021 DIABETES SCREEN EVERY 3 YRS-AGE 45 AND ABOVE 03/21/2024 03/21/2021, 12/22/2020, 11/21/2019, Additional history exists LIPID SCREEN EVERY 5 YRS-MEN AGE 35-75 12/22/2025 12/22/2020, 02/24/2020, 01/14/2019, Additional history exists DTaP,Tdap,and Td Vaccines (3 [...] HTN, goal below 140/90 Unspecified essential hypertension Hypothyroidism Unspecified hypothyroidism documented in this encounter Advance Directives Documents on File Type Date Recorded Patient Tool Storage Attendant Expl anation Advanced 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 Care Teams Pcat Instructor Relationship Specialty Start Date End Date Kelly Mitchell, DO [address] [place] [address] PCP - General Family Medicine 08/22/19 documented as of this encounter
--- OUTSIDE RECORDS SUMMARY | 2023-09-26 02:06 | External Medical Summary | Summary of Care ---
Author Name Unknown Organization [place] [address] Care Team Providers Care Mechanic General Operational Test Name Role Phone Kelly Mitchell DO Primary Care Provider [phone] Reason for Visit * Reason Comments eRx-Medication Refill Encounter Details Date Type Department Care Team Description 02/13/2022 Refill Family Practice [facility] [address] [facility] [place] [address] Kelly Mitchell DO [address] [facility] [place] [address] Allergies No known active allergiesdocumented as of this encounter (statuses as of 02/14/2022) Medications Medication Sig Dispensed Refills Start Date End Date Status ASPIRIN 81 MG PO TABS One daily 0 Active ZYRTEC ALLERGY 10 MG PO TABS one daily 0 Active ALBUTEROL SULFATE (2.5 MG/3ML) 0.083% IN [facility] one vial every 6 hours [...] 400 Units by mouth daily. 0 Active Haugan-3 Fatty Acids (OMEGA 3 500) 500 MG [...] 01/17/2022 Active predniSONE 10 MG Oral Tablet (Deltasone)Indica tions:Acute [...] THE MORNING 90 Tablet 0 02/14/2022 Active Spironolactone 25 MG Oral Tablet (Aldactone) TAKE 1 TABLET BY MOUTH ONCE DAILY IN THE MORNING 90 Tab 3 01/31/2021 Discontinued documented as of this encounter (statuses as of 02/14/2022) Active Problems Problem Noted Date Chest pain [...] as of this encounter (statuses as of 02/14/2022) Resolved Problems Problem Noted Date Resolved Date Encounter for surveillance of abnormal nevi 03/2004/29/2021 Dyslipidemia, goal LDL below 100 06/01/2014 12/08/2015 Hypoactive thyroid 01/07/2013 12/11/2016 Bronchiectasis 04/18/2003 06/12/2017 Post [place] syndrome 01/17/2003 02/10/2021 Pneumonia due to other virus not elsewhere class ified 12/24/2002 04/29/2021 documented as of this encounter (statuses as of 02/14/2022) Immunizations Name Administration Dates Next Due COVID-19 [...] Miscellaneous Notes * Telephone Encounter - Quinten Thurman RPh - 02/14/2022 4:22 PM EDT Signed Prescriptions: Disp Refills Spironolactone 25 MG Oral Tablet (Aldacton*90 Tab*0 Sig: TAKE 1 TABLET BY MOUTH ONCE DAILY IN THE MORNING Authorizing Provider: KELLY MITCHELL Ordering User: QUINTEN THURMAN * Telephone Encounter - Quinten Thurman [facility] - 02/14/2022 4:22 PM EDT 1 refill approved as pt will be due for lab work within 3 months. Thanks, Quinten Thurman Pharm.D. Clinical Pharmacist [facility] [phone] 02/14/2022, 4:22 PM documented in this encounter Plan of Treatment Upcoming Encounters Date Type Specialty Care Team Description 02/28/2022 Office Visit Orthopedics Nima Cox DO [address] [address] 03/14/2022 [facility] Visit [facility] [address] [facility] [address] 05/11/2022 Cardiac Studies Cardiac Studies 05/18/2022 Office Visit Cardiology Kath Carlin PA-C [address] [address] Scheduled Procedures Name Priority Associated Diagnoses Date/Ti me COLONOSCOPY FLEXIBLE PROXIMA L DIAGNOSTIC Recall Encounter for screening colonoscopy Health Maintenance Due Date Last Done Comments Cologuard: Ages 45-75 2007 FOBT: Ages 45-75 2007 Sigmoidoscopy: Ages 45-75 2007 Influenza Vaccine (FLU shot) (#1) 2021 09/02/2020, 09/02/2020, 08/18/2020, Additional history exists COVID-19 Vaccine (3 - Booster for Pfizer series) 09/09/2021 04/09/2021, 03/19/2021 TSH FOR THYROID MEDICATION MONITORING YEARLY 12/22/2021 12/22/2020, 11/21/2019, 08/22/2019, Additional history exists *URINE ALBUMIN/CREATININE RATIO ONCE FOR HTN 02/12/2022 BASIC METABOLIC PANEL (BMP) FOR HTN YEARLY [...] Documents on File Type Date Recorded Patient Barrel Repairer Expl anation Advanced Directive Advanced Directive Advanced [...] Directive Advanced Directive Advanced Directive Care Teams Mechanic General Operational Test Relationship Specialty Start Date End Date Kelly Mitchell, DO [address] [facility] [place] [address] PCP - General Family Medicine 08/22/19 documented as of this encounter
--- OUTSIDE RECORDS SUMMARY | 2023-09-26 02:06 | External Medical Summary | Summary of Care ---
Author Name Unknown Organization [place] [address] Care Team Providers Care Sales Appointment Coordinator Name Role Phone AntolinFarooq roger Primary Care Provider [phone] Reason for Referral * Evaluate & Treat - Unlimited Visits (Within 10 days (routine)) - Pending Review Specialty Diagnoses / Procedures Referred By Marlon lim Referred To Contact Physical Therapy / Physical Medicine And Rehab Diagnoses Acute low back pain without sciatica, unspecified back pain laterality Samantha Soto PA-C [address] [place] [id number] Referral ID Status Reason Start Date Expiration Date Visits Requested Visits Authorized [id number] Pending Review Specialty Services Required 01/17/2022 1 1 Question Answer Referral Priority Within 10 days (routine) Reason for Visit * Reason Comments Follow Up Encounter Details Date Type Department Care Team Description 01/17/2022 Office Visit Family Practice [facility] [address] [place] [address] Samantha Soto PA-C [address] [facility] [address] [place] [address] Acute low back pain without sciatica, unspecified back pain laterality* Allergies No known active allergiesdocumented as of this encounter (statuses as of 01/17/2022) Medications Medication Sig Dispensed Refills Start Date [...] 400 Units by mouth daily. 0 Active Wana-3 Fatty Acids (OMEGA 3 500) 500 MG [...] 2 days 30 Tablet 0 01/17/2022 Active predniSONE 20 MG Oral Tablet (Deltasone)Indica tions:Bronchitis, complicated 1 tab 3 times a day for 3 days, then 1 tab 2 times a day for 3 days, then 1 tab daily for 3 days 18 Tab 0 07/26/2021 2 Discontinued documented as of this encounter (statuses as of 01/17/2022) Active Problems Problem Noted Date Chest pain [...] as of this encounter (statuses as of 01/17/2022) Resolved Problems Problem Noted Date Resolved Date Encounter for surveillance of abnormal nevi 03/2004/29/2021 Dyslipidemia, goal LDL below 100 06/01/2014 12/08/2015 Hypoactive thyroid 01/07/2013 12/11/2016 Bronchiectasis 04/18/2003 06/12/2017 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 Pneumonia due to other virus not elsewhere class ified 12/24/2002 04/29/2021 documented as of this encounter (statuses as of 01/17/2022) Immunizations Name Administration Dates Next Due COVID-19 [...] Sign Reading Time Taken Comments Blood Pressure 138/80 01/17/2022 10:45 AM EST Pulse 65 01/17/2022 10:45 AM EST Temperature 36.1 C (96.9 F) 01/17/2022 10:[address] Respiratory Rate 14 01/17/2022 10:45 AM EST Oxygen Saturation 99% 01/17/2022 10:45 AM EST Inhaled Oxygen Concentration - - Weight 116.1 kg (256 lb) 01/17/2022 10:45 AM EST Height - - Body Mass Index 38.92 08/26/2021 12:18 PM EDT documented in this encounter Patient Instructions * Patient Instructions* Samantha Soto PA-C - 01/17/2022 11:05 AM EST [facility] does not currently offer physical therapy in the [place] region. Please take a copy of your referral with you to your appointment. You will need to call and schedule your therapy with a 3rd democrat. [facility] [phone] [facility] [employer] [place] [phone] [facility] [phone] [facility] [phone] [place] (aqua therapy): [phone] [facility] [phone] You will need to confirm insurance coverage at the location you choose. If you call your insurance directly, they may suggest alternate providers than listed above. documented in this encounter Progress Notes * Samantha Soto PA-C - 01/17/2022 10:54 AM EST CC: back pain Nursing Notes: Donna Armijo LPN 01/17/22 1047 Signed Chief Complaint Patient presents with Follow Up Discuss pain in lower back, bilateral legs x months, aches constantly. HPI: Placido Dean is a 61 year old male who presents with symptoms including back pain for months. Low back pain for months, located on the center and wraps to hips and down his legs. Feels weak, like he has to supervisor picking crew his legs with his hands at times. Does have shooting pains. On right side I comes around and down lateral side of leg on left wraps to groin and shoots down front. Pain is a 3/10.Cant site of stand for long periods of times. Occ. Motrin that does help. Has also seen chiropractor that does help too. Pt denies headache, fevers, confusion, numbness/tingling of extremities, saddle paraesthesias, lossof bowel or bladder habits. Review of Systems: CONSTITUTIONAL: No generalized weakness, [...] three months Pericardial effusion 01/2003 idiopathic, at [facility] Pilonidal cyst without infection Past Surgical History: Procedure Laterality Date BRONCHOSCOPY W/ BRONCHIAL BIOPSY 2003 biopsy, open and bronchoscopy COLONOSCOPY, DIAGNOSTIC (RECTUM) 11/29/2012 COLONOSCOPY FLEXIBLE PROXIMAL DIAGNOSTIC performed by Cristy Dobbs DO at ENDOSCOPY [facility] COLONOSCOPY, DIAGNOSTIC (RECTUM) 11/26/2015 diverticulosis, repeat 10 yrs/COLONOSCOPY FLEXIBLE PROXIMAL DIAGNOSTIC performed by Cristy Dobbs DO at ENDOSCOPY [facility] DENTAL SURGERY PROCEDURE NEC Dental Surgery Procedure DRAINAGE OF HEART SAC 2002 [facility] REMOVAL OF WRIST LESION Social History Tobacco [...] COVID-19 mRNA, LNP-s, No Preserve, 2-Dose Series ([employer]) 03/19/2021, 04/09/2021 Pneumococcal Conjugate Vacc, 13 Valent [...] Current Outpatient Medications Medication Sig Dispense Refill tiZANidine HCl 4 MG Oral Tablet (Zanaflex) Take by mouth 1 Tablet every 6 hours as needed for Muscle spasms. 30 Tablet 0 predniSONE 10 MG Oral Tablet (Deltasone) Take 5 tabs for 2 days, 4 tabs for 2 days, 3 tabs for 2 days, 2 tabs for 2 days 1 tab for 2 days 30 Tablet 0 ASPIRIN 81 MG PO TABS One daily [...] Capsule Take 400 Units by mouth daily. Wana-3 Fatty Acids (OMEGA 3 500) 500 MG CAPS Take by mouth. Azelastine HCl 0.1 % nasal spray USE 2 SPRAY(S) IN EACH NOSTRIL TWICE DAILY 90 mL 1 Tamsulosin HCl 0.4 MG Oral Capsule (FLOMAX) Take 0.4 mg by mouth daily. (Patient not taking: Reported on 11/10/2021) Spironolactone 25 MG Oral Tablet (Aldactone) TAKE 1 TABLET BY MOUTH ONCE DAILY IN THE MORNING 90 Tab 3 Atorvastatin Calcium 40 MG Oral Tablet [...] FULL GLASS OF WATER 90 Tablet 1 No current facility-administered medications for this visit. Review of patient's allergies indicates: No Known Allergies Patient's past medical, surgical, family, and social history were reviewed. Medications, allergies, immunizations, and health care maintenance screenings were also reviewed. Physical exam: BP 138/80 | Pulse 65 | Temp 36.1 C (96.9 F) (Tympanic) | Resp 14 | Wt 116.1 kg (256 lb) | SpO2 99% | BMI 38.92 kg/m | BSA 2.36 m GENERAL: alert, healthy, no distress, comfortable and cooperative EYES: extraocular movements intact, conjunctiva are pink and non-injected, sclera clear Ears: External ears normal Nose: OROPHARYNX: Neck: normal,supple,no adenopathy Respiratory: clear to auscultation,no rhonchi,no wheezes,no crackles Heart: regular rate,regular rhythm,no murmurs,no rubs,no gallops NEURO: alert & oriented x 3 with fluent speech, no focal motor/sensory deficits, gait normal, reflexes normal and symmetric, negative findings: cranial nerves 2- 12 intact, mental status intact, muscle strength normal, muscle tone normal, reflexes normal and symmetric, sensation to light touch and pinprick normal, speech normal BACK: back symmetric, no curvature, no costovertebral angle tenderness, range of motion is normal, no skin lesions, erythema or scars, no tenderness to percussion or palpation, Normal DTRs of patellaand ankles bilaterally, Normal heel walk and toe walk, without evidence of muscle weakness, bilateral paraspinal muscle spasms with pain to palpation, + bilateral SLT at 45*, - RUDI testing, Pain tobilateral SI joints to palpation EXTREMITIES: less than 2 second capillary refill, no joint deformities, effusion, or inflammation, no skin discoloration, no clubbing, Full ROM, Pulses Intact, Strength equal bilaterally, mild bilateral ankle swelling SKIN: skin color, texture, turgor are normal, no rashes or significant lesions Assessment/Plan: Acute low back pain without sciatica, unspecified back pain laterality (Primary) - XR L SPINE COMPLETE W BENDING 6 VIEWS - PHYSICAL THERAPY REFERRAL OP - tiZANidine HCl 4 MG Oral Tablet (Zanaflex); Take by mouth 1 Tablet every 6 hours as needed for Muscle spasms. - predniSONE 10 MG Oral Tablet (Deltasone); Take 5 tabs for 2 days, 4 tabs for 2 days, 3 tabs for 2days, 2 tabs for 2 days 1 tab for 2 days - AQUATIC THERAPY W/EXERCISES Pt aware of red flags that warrant er eval. Recommend above modalities with plans to follow along for any future need for Pain management or Neurosurgery. Also discussed possible Gabapentin in the future. Patient goals for plan of care were discussed. Follow Up: Recommend re-evaluation if not improving or if symptoms worsen. Samantha Soto PA-C [facility] [address] [place] [address] [address] [place] [address] [address] documented in this encounter Nursing Notes * Donna Armijo LPN - 01/17/2022 10:43 AM EST Chief Complaint Patient presents with Follow Up Discuss pain in lower back, bilateral legs x months, aches constantly. documented in this encounter Plan of Treatment Upcoming Encounters Date Type Specialty Care Team Description 02/14/2022 Office Visit Family Medicine [facility] [address] [facility] [address] 05/11/2022 Cardiac Studies Cardiac Studies 05/18/2022 Office Visit Cardiology Kath Carlin PA-C [address] [facility] [place] [address] Pending Results Name Type Priority Associated Diagnoses Date /Time XR L SPINE COMPLETE W BENDING 6 VIEWS Medical Imaging Routine Acute low back pain without sciatica, unspecified back pain laterality 01/17/2022 12:40 PM EST Scheduled Orders Name Type Priority Associated Diagnoses Orde r Schedule AQUATIC THERAPY W/EXERCISES Procedures Routine Acute low back pain without sciatica, unspecified back pain laterality Ordered: 01/17/2022 Scheduled Procedures Name Priority Associated Diagnoses Date/Ti me COLONOSCOPY FLEXIBLE PROXIMA L DIAGNOSTIC Recall Encounter for screening colonoscopy Scheduled Referrals Name Type Priority Associated Diagnoses Orde r Schedule PHYSICAL THERAPY REFERRAL OP Referral Within 10 days (routine) Acute low back pain without sciatica, unspecified back pain laterality Ordered: 01/17/2022 Health Maintenance Due Date Last Done Comments [...] without sciatica, unspecified back pain laterality- Primary documented in this encounter Advance Directives Documents on File Type Date Recorded Patient Barrel Tester Expl anation Advanced 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 Care Teams Sales Appointment Coordinator Relationship Specialty Start Date End Date Farooq Rodríguez, DO [address] [place] [address] PCP - General Family Medicine 08/22/19 documented as of this encounter"
--- OUTSIDE RECORDS SUMMARY | 2023-09-26 02:06 | External Medical Summary | Summary of Care ---
Author Name Unknown Organization [facility] Address [place] [address] Care Team Providers Care Personnel Worker Name Role Phone AntolinFarooq roger Primary Care Provider [phone] Reason for Referral * Evaluate & Treat - Unlimited Visits (Within 10 days (routine)) - Pending Review Specialty Diagnoses / Procedures Referred By Marlon lim Referred To Contact Orthopaedic Surgery / Orthopedics Diagnoses Chronic pain of left knee Hip pain, right Samantha Soto PA-C [address] [place] [address] Referral ID Status Reason Start Date Expiration Date Visits Requested Visits Authorized [id number] Pending Review Specialty Services Required 02/14/2022 1 1 Question Answer Referral Priority Within 10 days (routine) What body part is the patient being seen for? Thigh/Knee - HIP What condition is the patient being seen for? Sprain/Strain/Tear/Other Encounter Details Date Type Department Care Team Description 02/14/2022 Office Visit Family Practice [facility] [address] [place] [id number] Samantha Soto PA-C [address] [place] [address] Chronic pain of left knee*; Hip pain, right; Gastroesophageal reflux disease without esophagitis; Chronic bilateral low back pain with bilateral sciatica; Class 2 obesity with body mass index (BMI) of 35 to 39.9 without comorbidity Allergies No known active allergiesdocumented as of [...] 400 Units by mouth daily. 0 Active Cliff-3 Fatty Acids (OMEGA 3 500) 500 MG [...] 2 days 30 Tablet 0 01/17/2022 Active Gabapentin 300 MG Oral Capsule (Neurontin)Indicatio [...] mRNA, LNP-s, No Pre serve, 2-Dose Series (Strevus) 04/09/2021,03/19/2021 Pneumococcal Conjugate Vacc, 13 Valent (Prevnar) [...] Reading Time Taken Comments Blood Pressure 138/80 02/14/2022 7:46 AM EDT Pulse 72 02/14/2022 7:46 AM EDT Temperature 36 C (96.8 F) 02/14/2022 7:46 AM EDT Respiratory Rate 12 02/14/2022 7:46 AM EDT Oxygen Saturation 97% 02/14/2022 7:46 AM EDT Inhaled Oxygen Concentration - - Weight 117.9 kg (260 lb) 02/14/2022 7:46 AM EDT Height 172.7 cm (5' 8") 02/14/2022 7:46 AM EDT Body Mass Index 39.53 02/14/2022 7:46 AM EDT documented in this encounter Patient Instructions * Patient Instructions* Samantha Soto PA-C - 02/14/2022 7:58 AM EDT BMI (Body Mass Index) is the number obtained by dividing a person's weight in kilograms by his or her height in meters squared. BMI is used in determining obesity. BMI is not used to determine a person's actual percentage of body fat, but it is a good tool to all purpose clerk weight in terms of what is healthy and unhealthy. It is used to identify adults at increased risk for developing weight related medical problems. Estimated body mass index is 39.53 kg/m as calculated from the following: Height as of this encounter: 1.727 m (5' 8"). Weight as of this encounter: 117.9 kg (260 lb). Obesity - BMI 35 kg/m2 to 39.9 kg/mg - Obese individuals are at a risk for developing * Heart disease * Stroke * Diabetes * High Blood Pressure * High Cholesterol * GERD (acid reflux) * Sleep Apnea * Osteoarthritis * Fatty Liver Disease * Certain Types of Cancers * Gout * Gall Bladder Disease - Weight loss has been shown to decrease weight related medical problems. - Those with a BMI 35 kg/m2 or higher are almost ten times more likely to develop diabetes in theirlifetimes than those with a normal BMI. - A 12-week weight management text message program is also available. Go to Snap[employer] and seethe message under '[employer]' for more information and enrollment. Patient is Instructed to: Diet: * Limit total fat intake to no more than 40 grams per day (low fat diet). * Increase fruits and vegetables to 5 servings per day, combined. * Limited starches (breads, pasta, rice, potatoes, corn, cereals) to 4 servings per day. Avoid Calorie Containing Drinks: * No fruit juices, regular sodas or sweetened drinks. * Water is preferred - 64 ounces per day unless advised of a fluid restriction. * Diet sodas and drinks permitted. Keep Honest, Accurate Food logs: * www.[employer] * www.[place] * If you bite it - write it! Weigh Yourself Weekly: * Morning is best. * Try to do this outside your home. * Have a friend/spouse remind you to weigh yourself, accountability to others helps. Perform 30 minutes of physical activity daily: * Can do all at once or 5 minutes 6 times per day * 8, 000-10,000 steps per day using a pedometer * Make it fun! documented in this encounter Progress Notes * Samantha Soto PA-C - 02/14/2022 7:50 AM EDT CC: low back pain There are no exam notes on file for this visit. HPI: Placido Dean is a 61 year old male who presents with symptoms including low back pain for years. Pt has gone to PT since last visit. Bought a special mat to stand on as he still cant stand for long periods of time. Knees and hips are bothering him as well. Left knee and right hip are the worst. Feels fluid on left knee. Pain is a 3-4/10. This has been ongoing for years, just can't do what he needs to do anymore. Review of Systems: CONSTITUTIONAL: No generalized weakness, [...] three months Pericardial effusion 01/2003 idiopathic, at [facility] Pilonidal cyst without infection Past Surgical History: Procedure Laterality Date BRONCHOSCOPY W/ BRONCHIAL BIOPSY 2002 biopsy, open and bronchoscopy COLONOSCOPY, DIAGNOSTIC (RECTUM) 11/29/2012 COLONOSCOPY FLEXIBLE PROXIMAL DIAGNOSTIC performed by Cristy Dobbs DO at ENDOSCOPY [facility] COLONOSCOPY, DIAGNOSTIC (RECTUM) 11/26/2015 diverticulosis, repeat 10 yrs/COLONOSCOPY FLEXIBLE PROXIMAL DIAGNOSTIC performed by Cristy Dobbs DO at ENDOSCOPY [facility] DENTAL SURGERY PROCEDURE NEC Dental Surgery Procedure DRAINAGE OF HEART SAC 2002 [facility] REMOVAL OF WRIST LESION Social History Tobacco [...] COVID-19 mRNA, LNP-s, No Preserve, 2-Dose Series (Strevus) 03/19/2021, 04/09/2021 Pneumococcal Conjugate Vacc, 13 Valent [...] Capsule Take 400 Units by mouth daily. Cliff-3 Fatty Acids (OMEGA 3 500) 500 MG [...] tab for 2 days 30 Tablet 0 No current facility-administered medications for this visit. Review of patient's allergies indicates: No Known Allergies Patient's past medical, surgical, family, and social history were reviewed. Medications, allergies, immunizations, and health care maintenance screenings were also reviewed. Physical exam: BP 138/80 | Pulse 72 | Temp 36 C (96.8 F) | Resp 12 | Ht 1.727 m (5' 8") | Wt 117.9 kg (260 lb) | SpO2 97% | BMI 39.53 kg/m | BSA 2.38 m GENERAL: alert, healthy, no distress, comfortable and cooperative EYES: extraocular movements intact, conjunctiva are pink and non-injected, sclera clear Neck: normal,supple,no adenopathy Respiratory: clear to auscultation,no rhonchi,no wheezes,no crackles Heart: regular rate,regular rhythm,no murmurs,no rubs,no gallops BACK: back symmetric, no curvature, no costovertebral angle tenderness, range of motion is normal, negative straight leg raising, no curvature to forward bending, no skin lesions, erythema or scars, Normal DTRs of patella and ankles bilaterally, Normal heel walk and toe walk, without evidence of muscle weakness, + bilateral slt, bilateral SI joint pain EXTREMITIES: less than 2 second capillary refill, no joint deformities, effusion, or inflammation, Full ROM, Pulses Intact, Strength equal bilaterally SKIN: skin color, texture, turgor are normal, no rashes or significant lesions Assessment/Plan: Chronic pain of left knee (Primary) - ORTHOPAEDICS REFERRAL OP Hip pain, right - ORTHOPAEDICS REFERRAL OP Gastroesophageal reflux disease without esophagitis - Pantoprazole Sodium 40 MG Oral Tablet Delayed Release (Protonix); Take by mouth 1 Tablet in the morning. Chronic bilateral low back pain with bilateral sciatica - Gabapentin 300 MG Oral Capsule (Neurontin); Take by mouth 1 Capsule before bedtime. Class 2 obesity with body mass index (BMI) of 35 to 39.9 without comorbidity Will order MRI spine next visit as pt is set to complete his 6 weeks of PT. Continue PT Patient goals for plan of care were discussed. Follow Up: Recommend re-evaluation if not improving or if symptoms worsen. Samantha Soto PA-C Family Practice [address] [place] [address] Patient counseling on weight management given. documented in this encounter Plan of Treatment Upcoming Encounters Date Type Specialty Care Team Description 02/28/2022 Office Visit Orthopedics Nima Cox DO [address] [address] 03/14/2022 [facility] Visit [facility] [address] [facility] [address] 05/11/2022 Cardiac Studies Cardiac Studies 05/18/2022 Office Visit Cardiology Kath Carlin PA-C [address] [place] [address] Scheduled Procedures Name Priority Associated Diagnoses Date/Ti me COLONOSCOPY FLEXIBLE PROXIMA L DIAGNOSTIC Recall Encounter for screening colonoscopy Scheduled Referrals Name Type Priority Associated Diagnoses Order Schedule ORTHOPAEDICS REFERRAL OP Referral Within 10 days (routine) Chronic pain of left knee Hip pain, right Ordered: 02/14/2022 Health Maintenance Due Date Last Done Comments [...] this encounter Visit Diagnoses Diagnosis Chronic pain of left knee- Primary Pain in joint, lower leg Hip pain, right Pain in joint, pelvic region and thigh Gastroesophageal reflux disease without esophagitis Esophageal reflux Chronic bilateral low back pain with bilateral sciatica Class 2 obesity with body mass index (BMI) of 35 to 39.9 without comorbidity documented in this encounter Advance Directives Documents on File Type Date Recorded 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
--- OUTSIDE RECORDS SUMMARY | 2023-09-26 02:06 | External Medical Summary ---
Author Name Unknown Address Unknown Organization [id number][place] [place] [address] [facility] [place] [address] Laboratory Report Ordering Provider Test Date Status CAROLE RICE 01/17/2022 11:31:40 Final Observation Date Value Abnormality Reference (Units ) Status Triglyceride 01/17/2022 11:31:40 140 <=174 ( mg/dL) Final Triglyceride Reference Range s (mg/dL):
<150 Acceptable
150-174 Borderline high
175-499 High
>=500 Very high Cholesterol 01/17/2022 11:31:40 171 <200 (mg /dL) Final Total Cholesterol Reference Ranges (mg/dL):
<200 Desirable
200-239 Borderline high
>=240 High HDL 01/17/2022 11:31:40 41 >39 (mg/dL ) Final HDL Cholesterol Reference Ra nges (mg/dL):
>=60 High (Desirable)
<50 Low (Undesirable) For Females
<40 Low (Undesirable) For Males NON-HDL CHOLESTEROL 01/17/2022 11:31:40 130 <=159 (mg/dL) Final Non-HDL Cholesterol Referenc e Range (mg/dL):
<100 Target level for high risk ASCVD patient
<130 Optimal for general population
130-159 Near optimal for general population
160-189 Borderline High
190-219 High
>=220 Very High LDL, (calculated) 01/17/2022 11:31:40 102 <= 129 (mg/dL) Final LDL Cholesterol Reference Ra nges (mg/dL):
<70 Target level for high risk ASCVD patient
<100 Optimal for general population
100-129 Near optimal for general population
130-159 Borderline high
160-189 High
>=190 Very high Performing Location [facility] [place] [address] [facility] [address]
--- OUTSIDE RECORDS SUMMARY | 2023-09-26 02:07 | External Medical Summary | Summary of Care ---
Author Name Unknown Organization [facility] [place] [address] Care Team Providers Care Tool Room Supervisor Name Role Phone Farooq Rodríguez Primary Care Provider [phone] Reason for Referral * Precert (Within 10 days (routine)) - Pending Review Specialty Diagnoses / Procedures Referred By Contac t Referred To Contact Cardiac Studies Diagnoses Ascending aorta dilatation (HCC) Dilated aortic root (HCC) HTN, goal below 140/90 Chronic diastolic (congestive) heart failure (HCC) Pericardial effusion Procedures ECHO, COMPLETE (2D), TRANS-THORACIC Kath Carlin PA-C [address] [place] [id number] Referral ID Status Reason Start Date Expiration Date Visits Requested Visits Authorized [id number] Pending Review Precert 05/10/2022 1 1 Reason for Visit * Reason Comments Follow Up Encounter Details Date Type Department Care Team Description 11/10/2021 Office Visit Cardiology, [facility] [address] [id number] Kath Carlin PA-C [address] [place] [id number] Chronic diastolic (congestive) heart failure (HCC)*; Ascending aorta dilatation (HCC); Dilated aortic root (HCC); HTN, goal below 140/90; Pericardial effusion; Edema, unspecified type Allergies No known active allergiesdocumented as of this encounter (statuses as of 11/10/2021) Medications Medication Sig Dispensed Refills Start Date [...] 400 Units by mouth daily. 0 Active [place]-3 Fatty Acids (OMEGA 3 500) 500 MG CAPS Take by mouth. 0 Active Azelastine HCl 0.1 % nasal sprayIndications:Ch ronic rhinitis USE 2 SPRAY(S) IN EACH NOSTRIL TWICE DAILY 90 mL 1 04/03/2019 Active Tamsulosin HCl 0.4 MG Oral Capsule (FLOMAX)Indications :Gross hematuria Take 0.4 mg by mouth daily. 0 Active Spironolactone 25 MG Oral Tablet (Aldactone) TAKE 1 TABLET BY MOUTH ONCE DAILY IN THE MORNING 90 Tab 3 01/31/2021 Active Euthyrox 75 MCG Oral Tablet (levothyroxine)Amaris cations:Hypothyroid ism TAKE 1 TABLET BY MOUTH ONCE DAILY IN THE MORNING ON AN EMPTY STOMACH WITH A FULL GLASS OF WATER 90 Tab 2 03/07/2021 Active Furosemide 40 MG Oral Tablet (Lasix)Indications: HTN, goal below 140/90 Take 1 tablet by mouth once daily 90 Tab 2 03/07/2021 Active Amitriptyline HCl 25 MG Oral Tablet (Elavil)Indications :Migraine variant Take 1 Tab by mouth at bedtime. 30 Tab 5 04/29/2021 Active Atorvastatin Calcium 40 MG Oral Tablet (Lipitor)Indication s:CAD (coronary artery disease) Take 1 tablet by mouth once daily 90 Tab 3 05/16/2021 Active Lisinopril 40 MG Oral TabletIndications:H TN, goal below 140/90 Take 1 tablet by mouth once daily 90 Tab 3 07/04/2021 Active Potassium Chloride ER 10 MEQ Oral Tablet Extended ReleaseIndications: HTN, goal below 140/90 Take 1 tablet by mouth once daily 90 Tab 2 07/05/2021 Active predniSONE 20 MG Oral Tablet (Deltasone)Indicati ons:Bronchitis, complicated 1 tab 3 times a day for 3 days, then 1 tab 2 times a day for 3 days, then 1 tab daily for 3 days 18 Tab 0 07/26/2021 Active Additional Information Patient not taking. 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 Pneumonia due to other virus not elsewhere class ified 12/24/2002 04/29/2021 documented as of this encounter (statuses as of 11/10/2021) Immunizations Name Administration Dates Next Due COVID-19 [...] Sign Reading Time Taken Comments Blood Pressure 134/80 11/10/2021 8:21 AM EST Pulse 64 11/10/2021 8:21 AM EST Temperature 36.5 C (97.7 F) 11/10/2021 8:21 AM ES T Respiratory Rate 16 11/10/2021 8:21 AM EST Oxygen Saturation - - Inhaled Oxygen Concentration - - Weight 114.3 kg (252 lb) 11/10/2021 8:21 AM EST Height - - Body Mass Index 38.32 08/26/2021 12:18 PM EDT documented in this encounter Progress Notes * Kath Carlin PA-C - 11/10/2021 8:13 AM EST 11/10/2021 Cardiology F/U: History of Present Illness: Mr. Woodward is a 61 year old male who presents today for routine cardiology follow-up. Last clinic evaluation approximately 6 months ago with the undersigned. 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 F/U echocardiograms demonstrated normal pericardium without pericardial effusion, normal EF, andno significant valvular disease with dilated aortic root measuring 4.7 cm and ascending aortic dilation measuring 4.0 cm. Other history significant for inflammatory pulmonary disease for which he follows with [facility] Pul, dyslipidemia, hepatic steatosis, hypertension, obesity, and chronic diastolic HF controlled on low dose furosemide. Due to recurrent atypical chest pain, patient underwent diagnostic cardiac catheterization on March 23, 2021 at [facility] with Dr. Sigala demonstrating normal coronary arteries. Patient presents today feeling well. Denies recent or recurrent chest pain. Stable dyspnea. BP controlled. Taking meds as prescribed. No chest pain, shortness of [...] performed by Cristy Dobbs DO at ENDOSCOPY [facility] COLONOSCOPY, DIAGNOSTIC (RECTUM) 11/26/2015 diverticulosis, repeat 10 yrs/COLONOSCOPY FLEXIBLE PROXIMAL DIAGNOSTIC performed by Cristy Dobbs DO at ENDOSCOPY [facility] DENTAL SURGERY PROCEDURE NEC Dental Surgery Procedure DRAINAGE OF HEART SAC 2002 [facility] REMOVAL OF WRIST LESION Review of patient's [...] day. 1 Inhaler 1 Mometasone Furo-Formoterol Fum (DULERA) 100-5 MCG/ACT Inhaler Inhale 1 Puff by mouth as needed. Multiple Vitamins-Minerals (MENS MULTIPLE VITAMIN/LYCOPENE) TABS Take by mouth daily. vitamin e (AQUASOL E) 400 UNIT Capsule Take 400 Units by mouth daily. [place]-3 Fatty Acids (OMEGA 3 500) 500 MG CAPS Take by mouth. Azelastine HCl 0.1 % nasal spray USE 2 SPRAY(S) IN EACH NOSTRIL TWICE DAILY 90 mL 1 Spironolactone 25 MG Oral Tablet (Aldactone) TAKE 1 TABLET BY MOUTH ONCE DAILY IN THE MORNING 90 Tab 3 Euthyrox 75 MCG Oral Tablet (levothyroxine) TAKE 1 TABLET BY MOUTH ONCE DAILY IN THE MORNING DENIS EMPTY STOMACH WITH A FULL GLASS OF WATER 90 Tab 2 Furosemide 40 MG Oral Tablet (Lasix) Take 1 tablet by mouth once daily 90 Tab 2 Amitriptyline HCl 25 MG Oral Tablet (Elavil) Take 1 Tab by mouth at bedtime. 30 Tab 5 Atorvastatin Calcium 40 MG Oral Tablet (Lipitor) Take 1 tablet by mouth once daily 90 Tab 3 Lisinopril 40 MG Oral Tablet Take 1 tablet by mouth once daily 90 Tab 3 Potassium Chloride ER 10 MEQ Oral Tablet Extended Release Take 1 tablet by mouth once daily 90 Tab 2 ALBUTEROL SULFATE (2.5 MG/3ML) 0.083% IN NEBU one vial every 6 hours as needed (Patient not taking: No sig reported) SUMAtriptan (IMITREX) 50 MG Tablet TAKE ONE TABLET BY MOUTH ONE TIME ONLY,REPEAT AFTER TWO HOURS NEEDED MAX OF FOUR TABLETS 12 Tab 0 Tamsulosin HCl 0.4 MG Oral Capsule (FLOMAX) Take 0.4 mg by mouth daily. (Patient not taking: Reported on 11/10/2021) predniSONE 20 MG Oral Tablet (Deltasone) 1 tab 3 times a day for 3 days, then 1 tab 2 times a day for 3 days, then 1 tab daily for 3 days (Patient not taking: Reported on 08/26/2021) 18 Tab 0 Meclizine HCl 25 MG Oral Tablet (Antivert) TAKE 1 TABLET BY MOUTH THREE TIMES DAILY NEEDED FOR DIZZINESS 30 Tab 5 No current facility-administered medications for this visit. OBJECTIVE/PHYSICAL EXAMINATION: BP 134/80 (BP Site: Left Arm, BP Position: Sitting, BP Cuff Size: Large) | Pulse 64 | Temp 36.5 C(97.7 F) (Infrared ) | Resp 16 | Wt 114.3 kg (252 lb) | BMI 38.32 kg/m | BSA 2.34 m On my repeat 122/72 equal in both arms BP Readings from Last 4 Encounters: 08/26/21 122/78 07/26/21 140/76 06/24/21 114/80 04/29/21 114/72 Wt Readings from Last 3 Encounters: 08/26/21 115.8 kg (255 lb 6.4 oz) 07/26/21 114 kg (251 lb 6.4 oz) 06/24/21 111.9 kg (246 lb 9.6 oz) General: NAD. A&Ox3. Eyes: Conjunctiva are pink and non-injected, sclera clear Neck: No overt JVD. Chest: Normal respiratory effort Lungs: Clear to auscultation Cardiac Exam: RRR. No murmurs, rubs, or gallops Abdomen: Distended. Obese. +BS. Soft. Extremities: No edema Neuro: Grossly normal exam Psych: Appropriate affect and insight. DATA: Cardiac catheterization report reviewed dated March 23, 2021 at [facility], performed by Dr. Sigala: Coronary angiography: Selective [...] are stable without significant interval change. Outpatient nuclear monitoring technician report reviewed dated 02/11/21: CONCLUSIONS: Preliminary Findings [...] aortic root sizes have increased slightly Outpatient nuclear monitoring technician report reviewed dated November 2019: Duration 7 [...] for PLACIDO WOODWARD ( ) as of 11/10/2021 08:14 Ref. Range 12/22/2020 12:12 Triglycerides Latest Ref Range: <=174 mg/dL 65 Cholesterol Latest Ref Range: <200 mg/dL 136 Non-HDL Cholesterol Latest Ref Range: <=159 mg/dL 94 HDL Cholesterol Latest Ref Range: >39 mg/dL 42 LDL Cholesterol Latest Ref Range: <=129 mg/dL 81 IMPRESSION and PLAN: 61 year old male 1. Prior history of chest pain, non cardiac - normal cardiac catheterization 03/23/21 after equivocalstress testing. 2. Hypertension - controlled today 3. Bradycardia - asymptomatic. Stable. No significant pauses or bradyarrhythmias on prior monitor. 4. History of prior cardiac tamponade /effusion S/P pericardiocentesis in 2002- No recurrence per serial echocardiograms. Stable cardiovascular signs/symptoms 5. Chronic diastolic HF with intermittent edema - stable on current diuretic regimen. Recommend compression stockings for intermittent edema while at work. 6. Dyslipidemia - controlled. 7. Obesity - continued weight loss recommended. 8. Dilated aortic root, stable at 4.7, ascending aorta measuring 4.0 cm - stable per recent dobutamine stress measurements and chest CT 2020 9. Paroxysmal SVT, one episode lasting 9 seconds may be PAF, but difficult to determine. PLAN: Stable cardiac symptoms. Repeat echo at 1 year interval, spring 2021 to monitor aortic root/ascending aorta. CHF tools discussed including daily weights, salt/sodium/fluid restriction, and use of diuretic protocol. The patient is to continue all current medications as listed above. No changes were made at today'svisit. Fasting labs requested spring 2021, including lipid panel - ordered. Has PCP visit as well. Recommend regular aerobic exercise. [place] goal would be minimum of 30 minutes done daily. Exercise can be done in divided time periods if needed. Told to avoid extremes in temperature. I spent a total of 30 minutes on the date of service in preparation, delivery, and documentation ofthe care provided to Placido Woodward excluding any time spent in the performance of separately billed services. The patient agrees to the above plan and will call with additional questions or concerns. ER with all emergencies advised. Follow-up: Return in about 6 months (around 05/11/2022). | Check-out note: Schedule echo in about 6 months F/U after echo Kath Carlin PA-C Department of Cardiology This chart was completed in part utilizing [employer] Speech Voice Recognition Software. Grammatical errors, random [...] Nursing Notes * Trey Marquis RN - 11/10/2021 8:25 AM EST Examination Room: room 6 Name: Placido Woodward Date of : (1960). Reason for Visit: for follow up Interim Hospitalization(s): denies Problems/Concerns: denies Chest Pain/SOB: denies [facility] [...] Team Description 03/03/2022 Office Visit Family Medicine Farooq Rodríguez, DO [address] [facility] [place] [address] 05/11/2022 Cardiac Studies Cardiac Studies 05/18/2022 Office Visit Cardiology Kath Carlin PA-C [address] [facility] [place] [address] Scheduled Orders Name Type Priority Associated Diagnoses Orde r Schedule LIPID PANEL WITH DIRECT LDL IF TG IS HIGH Lab Routine Ascending aorta dilatation (HCC) Dilated aortic root (HCC) HTN, goal below 140/90 Chronic diastolic (congestive) heart failure (HCC) Pericardial effusion Expected: 02/07/2022, Expires: 11/10/2022 ECHO, COMPLETE (2D), TRANS-THORACIC Echocardiology Routine Ascending aorta dilatation (HCC) Dilated aortic root (HCC) HTN, goal below 140/90 Chronic diastolic (congestive) heart failure (HCC) Pericardial effusion Expected: 05/10/2022 (Approximate), Expires: 11/10/2022 Scheduled Procedures Name Priority Associated Diagnoses Date/Ti [...] this topic Zoster Vaccines Completed 04/23/2019, 02/17/2019 MENINGOCOCCAL (MENACTRA/MENVEO) Aged Out No longer eligible based on patient's age to complete this topic documented as of this encounter Implants Not on filedocumented as of this encounter Visit Diagnoses Diagnosis Chronic diastolic (congestive) heart failure (HCC)- Primary Ascending aorta dilatation (HCC) Thoracic aortic ectasia Dilated aortic root (HCC) Thoracic aortic ectasia HTN, goal below 140/90 Unspecified essential hypertension Pericardial effusion Unspecified disease of pericardium Edema, unspecified type documented in this encounter Advance Directives Documents on File Type Date 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 Advanced 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 Care Teams Tool Room Supervisor Relationship Specialty Start Date End Date Farooq Rodríguez, DO [address] [place] [address] PCP - General Family Medicine 08/22/19 documented as of this encounter"
--- OUTSIDE RECORDS SUMMARY | 2023-09-26 02:07 | External Medical Summary | Summary of Care ---
Author Name Unknown Organization [place] [address] Care Team Providers Care Hot Box Operator Name Role Phone Farooq Rodríguez DO Primary Care Provider [phone] Reason for Visit * Reason Comments Re-Check Encounter Details Date Type Department Care Team Description 08/26/2021 Office Visit Family Practice [facility] [address] [place] [address] Farooq Rodríguez DO [address] [facility] [place] [address] [phone] HTN, goal below 140/90*; Sleep disorder breathing; Gastroesophageal reflux disease without esophagitis Allergies No Known Active Allergiesdocumented as of this encounter (statuses as of 09/12/2021) Medications Medication Sig Dispensed Refills Start Date End Date Status ASPIRIN 81 MG PO TABS One daily 0 Active ZYRTEC ALLERGY 10 MG PO TABS one daily 0 Active ALBUTEROL SULFATE (2.5 MG/3ML) 0.083% IN [facility] one vial every 6 hours [...] 400 Units by mouth daily. 0 Active [place]-3 Fatty Acids (OMEGA 3 500) 500 MG [...] as of this encounter (statuses as of 09/12/2021) Active Problems Problem Noted Date Chest pain [...] as of this encounter (statuses as of 09/12/2021) Resolved Problems Problem Noted Date Resolved Date Encounter for surveillance of abnormal nevi 03/2004/29/2021 Dyslipidemia, goal LDL below 100 06/01/2014 12/08/2015 Hypoactive thyroid 01/07/2013 12/11/2016 Bronchiectasis 04/18/2003 06/12/2017 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 Pneumonia due to other virus not elsewhere class ified 12/24/2002 04/29/2021 documented as of this encounter (statuses as of 09/12/2021) Immunizations Name Administration Dates Next Due COVID-19 [...] User Chew Quit: 04/21/2012 Comments:quit Alcohol Use Drinks/Week oz/Week Comments Yes 6 12 oz of beer 5.0 Sex Assigned at Date Recorded Not on file Job Start Date Occupation Industry Not on file Not on file Not on file documented as of this encounter Last Filed Vital Signs Vital Sign Reading Time Taken Comments Blood Pressure 122/78 08/26/2021 12:18 PM EDT Pulse 82 08/26/2021 12:18 PM EDT Temperature 36.9 C (98.4 F) 08/26/2021 1 2:18 PM EDT Respiratory Rate 16 08/26/2021 12:1 8 PM EDT Oxygen Saturation - - Inhaled Oxygen Concentration - - Weight 115.8 kg (255 lb 6.4 oz) 021 12:18 PM EDT Height 172.7 cm (5' 8") 08/26/2021 12:1 8 PM EDT Body Mass Index 38.83 08/26/2021 12:18 PM EDT documented in this encounter Progress Notes * Farooq Rodríguez DO - 08/26/2021 12:36 PM EDT Subjective: Placido Dean is a 61 year old male. Chief Complaint Patient presents with Re-Check HPI: Pt here in follow-up. Prednisone and doxy helped with cough and dizziness. He remains SOB. He saw pulm and has PFTs scheduled. He sweats a lot still. IT has been for months. Noticed it with new job - year and a half. Worse over time. We started a TCA. It has helped his migraines and his mood. We reviewed his meds. Albuterol use is once per day. PMHx, meds, and allergies reviewed Patient Active [...] Chest pain with normal coronary angiography R07.9 Current Outpatient Medications Medication Sig Dispense Refill Meclizine HCl 25 MG Oral Tablet (Antivert) TAKE 1 TABLET BY MOUTH THREE TIMES DAILY NEEDED FOR DIZZINESS 30 Tab 5 Potassium Chloride ER 10 MEQ Oral Tablet Extended Release Take 1 tablet by mouth once daily 90 Tab 2 Lisinopril 40 MG Oral Tablet Take 1 tablet by mouth once daily 90 Tab 3 Atorvastatin Calcium 40 MG Oral Tablet (Lipitor) Take 1 tablet by mouth once daily 90 Tab 3 Amitriptyline HCl 25 MG Oral Tablet (Elavil) Take 1 Tab by mouth at bedtime. 30 Tab 5 Euthyrox 75 MCG Oral Tablet (levothyroxine) TAKE 1 TABLET BY MOUTH ONCE DAILY IN THE MORNING DENIS EMPTY STOMACH WITH A FULL GLASS OF WATER 90 Tab 2 Furosemide 40 MG Oral Tablet (Lasix) Take 1 tablet by mouth once daily 90 Tab 2 Spironolactone 25 MG Oral Tablet (Aldactone) TAKE 1 TABLET BY MOUTH ONCE DAILY IN THE MORNING 90 Tab 3 Tamsulosin HCl 0.4 MG Oral Capsule (FLOMAX) Take 0.4 mg by mouth daily. Azelastine HCl 0.1 % nasal spray USE 2 SPRAY(S) IN EACH NOSTRIL TWICE DAILY 90 mL 1 [place]-3 Fatty Acids (OMEGA 3 500) 500 MG CAPS Take by mouth. vitamin e (AQUASOL E) 400 UNIT Capsule Take 400 Units by mouth daily. Mometasone Furo-Formoterol Fum (DULERA) 100-5 MCG/ACT Inhaler Inhale 1 Puff by mouth as needed. Multiple Vitamins-Minerals (MENS MULTIPLE VITAMIN/LYCOPENE) TABS Take by mouth daily. SUMAtriptan (IMITREX) 50 MG Tablet TAKE ONE TABLET BY MOUTH ONE TIME ONLY,REPEAT AFTER TWO HOURS NEEDED MAX OF FOUR TABLETS 12 Tab 0 albuterol (PROAIR HFA) 108 (90 BASE) MCG/ACT inhaler Inhale 2 Puffs by mouth 4 times a day. 1 Inhaler 1 HM VITAMIN D3 2000 UNITS PO CAPS 1 CAPSULE DAILY ZYRTEC ALLERGY 10 MG PO TABS one daily ASPIRIN 81 MG PO TABS One daily predniSONE 20 MG Oral Tablet (Deltasone) 1 tab 3 times a day for 3 days, then 1 tab 2 times a day for 3 days, then 1 tab daily for 3 days (Patient not taking: Reported on 08/26/2021) 18 Tab 0 ALBUTEROL SULFATE (2.5 MG/3ML) 0.083% IN NEBU one vial every 6 hours as needed Review of patient's allergies indicates: No Known Allergies OBJECTIVE: BP 122/78 | Pulse 82 | Temp 36.9 C (98.4 F) (Tympanic) | Resp 16 | Ht 1.727 m (5' 8") | Wt 115.8 kg (255 lb 6.4 oz) | BMI 38.83 kg/m | BSA 2.36 m Estimated body mass index is 38.83 kg/m as calculated from the following: Height as of this encounter: 1.727 m (5' 8"). Weight as of this encounter: 115.8 kg (255 lb 6.4 oz). BP Readings from Last 3 Encounters: 08/26/21 122/78 07/26/21 140/76 06/24/21 114/80 Wt Readings from Last 3 Encounters: 08/26/21 115.8 kg (255 lb 6.4 oz) 07/26/21 114 kg (251 lb 6.4 oz) 06/24/21 111.9 kg (246 lb 9.6 oz) ROS: Negative except for above PHYSICAL EXAM: General: alert, healthy and no distress Head: Normocephalic, No masses, lesions, tenderness or abnormalities Heart: regular rate & rhythm, no murmurs and no gallops Lungs: chest symmetric with normal AP diameter, no chest deformities noted, no chest wall tenderness, lungs clear to auscultation ASSESSMENT/Plan HTN, goal below 140/90 (Primary) Sleep disorder breathing Gastroesophageal reflux disease without esophagitis I don;t have a good answer to try and fix his sweating at this point. The above was discussed and understanding was expressed. Farooq Rodríguez DO documented in this encounter Nursing Notes * Cathie Pruitt LPN - 08/26/2021 12:17 PM EDT Chief Complaint Patient presents with Re-Check documented in this encounter Plan of Treatment Upcoming Encounters Date Type Specialty Care Team Description 10/14/2021 Office Visit Cardiology Kath Carlin PA-C [address] [facility] [place] [address] 03/03/2022 Office Visit Family Medicine Farooq Rod[facility]guez DO [address] [facility] [address] [phone] Health Maintenance Due Date Last Done Comments Influenza Vaccine (FLU shot) (#1) 2021 09/02/2020, 09/02/2020, 08/18/2020, Additional history exists COVID-19 Vaccine (3 - Pfizer booster) 10/10/2021 04/09/2021, 03/19/2021 DIABETES SCREEN EVERY 3 YRS-AGE 45 AND ABOVE 03/21/2024 03/21/2021, 12/22/2020, 11/21/2019, Additional history exists LIPID SCREEN EVERY 5 YRS-MEN AGE 35-75 12/22/2025 12/22/2020, 02/24/2020, 01/14/2019, Additional history exists DTaP,Tdap,and Td Vaccines (3 - Td) 10/27/2030 10/27/2020, 09/13/2009 Pneumococcal Vaccine: Pediatrics (0 [...] encounter Visit Diagnoses Diagnosis HTN, goal below 140/90- Primary Unspecified essential hypertension Sleep disorder breathing Other sleep disturbances Gastroesophageal reflux disease without esophagitis Esophageal reflux documented in this encounter Advance Directives Documents on File Type Date 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
--- OUTSIDE RECORDS SUMMARY | 2023-09-26 02:07 | External Medical Summary | Summary of Care ---
Author Name Unknown Organization [place] [address] Care Team Providers Care Production Consultant Name Role Phone Kelly Mitchell DO Primary Care Provider [phone] Reason for Visit * Reason Comments eRx-Medication Refill Encounter Details Date Type Department Care Team Description 12/02/2021 Refill Family Practice [facility] [address] [facility] [place] [address] Kelly Mitchell DO [address] [facility] [place] [address] Migraine variant Allergies No known active allergiesdocumented as of this encounter (statuses as of 12/02/2021) Medications Medication Sig Dispensed Refills Start Date End Date Status ASPIRIN 81 MG PO TABS One daily 0 Active ZYRTEC ALLERGY 10 MG PO TABS one daily 0 Active ALBUTEROL SULFATE (2.5 MG/3ML) 0.083% IN [facility] one vial every 6 hours as needed [...] 400 Units by mouth daily. 0 Active [place]-3 Fatty Acids (OMEGA 3 500) 500 [...] 01/31/2021 Active Euthyrox 75 MCG Oral Tablet (levothyroxine)In dications:Hypothy roidism TAKE 1 TABLET BY MOUTH ONCE DAILY IN THE MORNING ON AN EMPTY STOMACH WITH A FULL GLASS OF WATER 90 Tab 2 03/07/2021 Active Furosemide 40 MG Oral Tablet (Lasix)Indication s:HTN, goal below 140/90 Take 1 tablet by mouth once daily 90 Tab 2 03/07/2021 Active Atorvastatin Calcium 40 MG Oral Tablet [...] AT BEDTIME 30 Tablet 3 12/02/2021 Active Amitriptyline HCl 25 MG Oral Tablet (Elavil)Indicatio ns:Migraine variant Take 1 Tab by mouth at bedtime. 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 Pneumonia due to other virus not elsewhere class ified 12/24/2002 04/29/2021 documented as of this encounter (statuses as of 12/02/2021) Immunizations Name Administration Dates Next Due COVID-19 [...] encounter Miscellaneous Notes * Telephone Encounter - Adrianne Corona [facility] - 12/02/2021 1:43 PM EST Signed Prescriptions: Disp Refills Amitriptyline HCl 25 MG Oral Tablet (Elavi*30 Tab*3 Sig: TAKE 1 TABLET BY MOUTH AT BEDTIMEAuthorizing Provider: KELLY MITCHELL User: ADRIANNE CORONA----- documented in this encounter Plan of Treatment Upcoming Encounters Date Type Specialty Care Team Description 03/03/2022 Office Visit Family Medicine Kelly Mitchell, DO [address] [place] [address] 05/11/2022 Cardiac Studies Cardiac Studies 05/18/2022 Office Visit Cardiology Kath Carlin PA-C [address] [facility] [place] [address] Scheduled Procedures Name Priority Associated Diagnoses Date/Ti [...] of status migrainosus documented in this encounter Advance Directives Documents on File Type Date Recorded Patient Frame Expander Expl anation Advanced 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 Care Teams Production Consultant Relationship Specialty Start Date End Date Kelly Mitchell, DO [address] [place] [address] PCP - General Family Medicine 08/22/19 documented as of this encounter
--- OUTSIDE RECORDS SUMMARY | 2023-09-26 02:07 | External Medical Summary | Summary of Care ---
Author Name Unknown Organization [facility] Address [facility] [place] [address] Care Team Providers Care Manifest Clerk Name Role Phone Farooq Rodríguez DO Primary Care Provider [phone] Encounter Details Date Type Department Care Team Description 09/01/2021 Scan Encounter Family Practice [facility] [place] [address] [facility] [place] [address] Farooq Rodríguez DO 200 [facility] [place] [address] [phone] <No scans attached> Allergies No Known Active Allergiesdocumented as of this encounter (statuses as of 09/02/2021) Medications Medication Sig Dispensed Refills Start Date End Date Status ASPIRIN 81 MG PO TABS One daily 0 Active ZYRTEC ALLERGY 10 MG PO TABS one daily 0 Active ALBUTEROL SULFATE (2.5 MG/3ML) 0.083% IN NEB one vial every 6 hours as needed 0 Active HM VITAMIN D3 2000 UNITS PO CAPSIndications:Vit hzael D deficiency 1 CAPSULE DAILY 0 03/22/2014 [...] 400 Units by mouth daily. 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 Health Maintenance Due Date Last Done Comments [...] Documents on File Type Date Recorded Patient Wellness Program Coordinator Expl anation Advanced 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
--- OUTSIDE RECORDS SUMMARY | 2023-09-26 02:07 | External Medical Summary | Summary of Care ---
Author Name Unknown Organization [place] [address] Care Team Providers Care Testing Manager Name Role Phone Farooq Rodríguez Primary Care Provider [phone] Encounter Details Date Type Department Care Team Description 08/01/2021 Scan Encounter Unspecified Department <No scans attached> Allergies No Known Active Allergiesdocumented as of this encounter (statuses as of 08/04/2021) Medications Medication Sig Dispensed Refills Start Date [...] 400 Units by mouth daily. 0 Active [place]-3 Fatty Acids (OMEGA 3 500) 500 MG CAPS Take by mouth. 0 Active Azelastine HCl 0.1 % nasal sprayIndications:Chr onic rhinitis USE 2 SPRAY(S) IN EACH NOSTRIL TWICE DAILY 90 mL 1 04/03/2019 Active meclizine (ANTIVERT) 25 MG Tablet Take 1 Tab by mouth 3 times a day as needed for Dizziness. 30 Tab 3 08/22/2019 Active Tamsulosin HCl 0.4 MG Oral Capsule (FLOMAX)Indications: Gross hematuria Take 0.4 mg by mouth daily. 0 Active Spironolactone 25 MG Oral Tablet (Aldactone) TAKE 1 TABLET BY MOUTH ONCE DAILY IN THE MORNING 90 Tab 3 01/31/2021 Active Euthyrox 75 MCG Oral Tablet (levothyroxine)Indic ations:Hypothyroidis m TAKE 1 TABLET BY MOUTH ONCE DAILY IN THE MORNING ON AN EMPTY STOMACH WITH A FULL GLASS OF WATER 90 Tab 2 03/07/2021 Active Furosemide 40 MG Oral Tablet (Lasix)Indications:H TN, goal below 140/90 Take 1 tablet by mouth once daily 90 Tab 2 03/07/2021 Active Amitriptyline HCl 25 MG Oral Tablet (Elavil)Indications: Migraine variant Take 1 Tab by mouth at [...] once daily 90 Tab 2 07/05/2021 Active Doxycycline Hyclate 100 MG Oral CapsuleIndications:B ronchitis, complicated Take 1 Cap by mouth 2 times a day for 10 days. Until gone. 20 Cap 0 07/26/2021 08/05/2021 Active predniSONE 20 MG Oral Tablet (Deltasone)Indicatio ns:Bronchitis, complicated 1 tab 3 times a day for 3 days, then 1 tab 2 times a day for 3 days, then 1 tab daily for 3 days 18 Tab 0 07/26/2021 Active documented as of this encounter (statuses as of 08/04/2021) Active Problems Problem Noted Date Chest pain [...] as of this encounter (statuses as of 08/04/2021) Resolved Problems Problem Noted Date Resolved Date Encounter for surveillance of abnormal nevi 03/2004/29/2021 Dyslipidemia, goal LDL below 100 06/01/2014 12/08/2015 Hypoactive thyroid 01/07/2013 12/11/2016 Bronchiectasis 04/18/2003 06/12/2017 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 Pneumonia due to other virus not elsewhere class ified 12/24/2002 04/29/2021 documented as of this encounter (statuses as of 08/04/2021) Immunizations Name Administration Dates Next Due COVID-19 mRNA, LNP-s, No Pre serve, 2-Dose Series ([employer]) 04/09/2021,03/19/2021 Pneumococcal Conjugate Vacc, 13 Valent (Prevnar) [...] Encounters Date Type Specialty Care Team Description 08/26/2021 Office Visit Family Medicine Farooq Rodríguez, DO 200 [place] [address] [phone] 10/14/2021 Office Visit Cardiology Kath Carlin PA-C [address] [facility] [place] [address] [phone] Health Maintenance Due Date Last Done Comments Influenza Vaccine (FLU shot) (#1) 2021 09/02/2020, 09/02/2020, 08/18/2020, Additional history exists DIABETES [...] this topic Zoster Vaccines Completed 04/23/2019, 02/17/2019 COVID-19 Vaccine Completed 04/09/2021, 03/19/2021 MENINGOCOCCAL (MENACTRA/MENVEO) Aged Out No longer eligible based on patient's age to complete this topic documented as of this encounter Implants Not on filedocumented as of this encounter Advance Directives Documents on File Type Date Recorded Patient Professor Of Sociology Expl anation Advanced Directive Advanced Directive Advanced Directive Advanced Directive Advanced Directive Advanced Directive Advanced Directive Advanced Directive Advanced Directive Advanced Directive Advanced Directive Advanced Directive Advanced Directive Advanced Directive Advanced Directive Advanced Directive Advanced Directive Advanced Directive Advanced Directive Advanced Directive Advanced Directive
--- OUTSIDE RECORDS SUMMARY | 2023-09-26 02:07 | External Medical Summary | Summary of Care ---
Author Name Unknown Organization [place] [address] Care Team Providers Care Temple Marker Name Role Phone Farooq Rodríguez Primary Care Provider [phone] Encounter Details Date Type Department Care Team Description 08/12/2021 Scan Encounter Unspecified Department <No scans attached> Allergies No Known Active Allergiesdocumented as of this encounter (statuses as of 08/15/2021) Medications Medication Sig Dispensed Refills Start Date [...] 400 Units by mouth daily. 0 Active [place]-3 Fatty Acids (OMEGA 3 500) 500 MG [...] 07/05/2021 Active predniSONE 20 MG Oral Tablet (Deltasone)Indicatio ns:Bronchitis, complicated 1 tab 3 times a day for 3 days, then 1 tab 2 times a day for 3 days, then 1 tab daily for 3 days 18 Tab 0 07/26/2021 Active Meclizine HCl 25 MG Oral Tablet (Antivert) TAKE 1 TABLET BY MOUTH THREE TIMES DAILY NEEDED FOR DIZZINESS 30 Tab 5 08/08/2021 Active documented as of this encounter (statuses as of 08/15/2021) Active Problems Problem Noted Date Chest pain [...] as of this encounter (statuses as of 08/15/2021) Resolved Problems Problem Noted Date Resolved Date Encounter for surveillance of abnormal nevi 03/2004/29/2021 Dyslipidemia, goal LDL below 100 06/01/2014 12/08/2015 Hypoactive thyroid 01/07/2013 12/11/2016 Bronchiectasis 04/18/2003 06/12/2017 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 Pneumonia due to other virus not elsewhere class ified 12/24/2002 04/29/2021 documented as of this encounter (statuses as of 08/15/2021) Immunizations Name Administration Dates Next Due COVID-19 mRNA, LNP-s, No Pre serve, 2-Dose Series ([employer]) 04/09/2021,03/19/2021 Pneumococcal Conjugate Vacc, 13 Valent (Prevnar) [...] Visit Family Medicine Farooq Rodríguez, DO [address] [facility] [address] [phone] 10/14/2021 Office Visit Cardiology Kath Carlin PA-C [address] [facility] [place] [address] [phone] Health Maintenance Due Date Last Done Comments [...] Documents on File Type Date Recorded Patient Mophead Trimmer And Wrapper Expl anation Advanced Directive Advanced Directive Advanced Directive Advanced Directive Advanced Directive Advanced Directive Advanced Directive Advanced Directive Advanced Directive Advanced Directive Advanced Directive Advanced Directive Advanced Directive Advanced Directive Advanced Directive Advanced Directive Advanced Directive Advanced Directive Advanced Directive Advanced Directive Advanced Directive
--- OUTSIDE RECORDS SUMMARY | 2023-09-26 02:08 | External Medical Summary | Summary of Care ---
Author Name Unknown Organization [facility] Address [place] [address] Care Team Providers Care Manager Drive Name Role Phone Farooq Rodríguez Primary Care Provider [phone] Reason for Visit * Reason Onset Date Comments COVID-19 Screening 07/19/2021 Encounter Details Date Type Department Care Team Description 07/19/2021 Telephone COVID19 Screening [facility] [address] [place] [id number], Automated Provider COVID-19 Screening Allergies No Known Active Allergiesdocumented as of this encounter (statuses as of 07/20/2021) Medications Medication Sig Dispensed Refills Start Date End Date Status ASPIRIN 81 MG PO TABS One daily 0 Act natasha ZYRTEC ALLERGY 10 MG PO TABS one daily 0 Active ALBUTEROL SULFATE (2.5 MG/3ML) 0.083% IN NEBU one vial every 6 hours as needed 0 Active HM VITAMIN D3 2000 UNITS PO CAPSIndications:Vitam in D deficiency 1 CAPSULE DAILY 0 03/22/2014 Acti ve albuterol (PROAIR HFA) 108 (90 BASE) MCG/ACT inhalerIndications:Ac [facility] bronchitis, antibiotics not indicated Inhale 2 Puffs [...] 400 Units by mouth daily. 0 Active [place]-3 Fatty Acids (OMEGA 3 500) 500 MG CAPS Take by mouth. 0 Active Azelastine HCl 0.1 % nasal sprayIndications:Chief Projectionist alison rhinitis USE 2 SPRAY(S) IN EACH NOSTRIL TWICE DAILY 90 mL 1 04/03/2019 Active meclizine (ANTIVERT) 25 MG Tablet Take 1 Tab by mouth 3 times a day as needed for Dizziness. 30 Tab 3 08/22/2019 Active Tamsulosin HCl 0.4 MG Oral Capsule (FLOMAX)Indications:G ross hematuria Take 0.4 mg by mouth daily. 0 Active Spironolactone 25 MG Oral Tablet (Aldactone) TAKE 1 TABLET BY MOUTH ONCE DAILY IN THE MORNING 90 Tab 3 01/31/2021 Active Euthyrox 75 MCG Oral Tablet (levothyroxine)Indica tions:Hypothyroidism TAKE 1 TABLET BY MOUTH ONCE DAILY IN THE MORNING ON AN EMPTY STOMACH WITH A FULL GLASS OF WATER 90 Tab 2 03/07/2021 Active Furosemide 40 MG Oral Tablet (Lasix)Indications:HT N, goal below 140/90 Take 1 tablet by mouth once daily 90 Tab 2 03/07/2021 Active Amitriptyline HCl 25 MG Oral Tablet (Elavil)Indications:M igraine variant Take 1 Tab by mouth at bedtime. 30 Tab 5 04/29/2021 Active Atorvastatin Calcium 40 MG Oral Tablet (Lipitor)Indications: CAD (coronary artery disease) Take 1 tablet by mouth once daily 90 Tab 3 05/16/2021 Active Lisinopril 40 MG Oral TabletIndications:HTN , goal below 140/90 Take 1 tablet by mouth once daily 90 Tab 3 07/04/2021 Active Potassium Chloride ER 10 MEQ Oral Tablet Extended ReleaseIndications:HT N, goal below 140/90 Take 1 tablet by mouth once daily 90 Tab 2 07/05/2021 Active documented as of this encounter (statuses as of 07/20/2021) Active Problems Problem Noted Date Chest pain [...] as of this encounter (statuses as of 07/20/2021) Resolved Problems Problem Noted Date Resolved Date Encounter for surveillance of abnormal nevi 03/2004/29/2021 Dyslipidemia, goal LDL below 100 06/01/2014 12/08/2015 Hypoactive thyroid 01/07/2013 12/11/2016 Bronchiectasis 04/18/2003 06/12/[address] syndrome 01/17/2003 02/10/2021 Pneumonia due to other virus not elsewhere class ified 12/24/2002 04/29/2021 documented as of this encounter (statuses as of 07/20/2021) Immunizations Name Administration Dates Next Due COVID-19 [...] encounter Miscellaneous Notes * Telephone Encounter - Hima Cole - 07/20/2021 6:42 AM EDT Outreach Attempts IVR Call Jul 19 2021 5:07PM Voicemail - Voicemail IVR Message: Mylene Cummins. This is [employer] calling to let you know you have test results available. You can access this result in your [employer] account under 'Test & Lab Results'. If you are not enrolled in [email or web address], you can create an account by going to [email or web address]. You can also call back at [phone] or we will attempt to reach you later today. documented in this encounter Plan of Treatment Upcoming Encounters Date Type Specialty Care Team Description 08/26/2021 Office Visit Family Medicine Farooq Rodríguez, DO [address] [place] [address] [phone] 10/14/2021 Office Visit Cardiology Kath Carlin PA-C [address] [place] [address] [phone] Health Maintenance Due Date Last Done Comments [...] Documents on File Type Date Recorded Patient Trades Helper Expl anation Advanced Directive Advanced Directive Advanced Directive Advanced Directive Advanced Directive Advanced Directive Advanced Directive Advanced Directive Advanced Directive Advanced Directive Advanced Directive Advanced Directive Advanced Directive Advanced Directive Advanced Directive Advanced Directive Advanced Directive Advanced Directive Advanced Directive Advanced Directive
--- OUTSIDE RECORDS SUMMARY | 2023-09-26 02:08 | External Medical Summary | Summary of Care ---
Author Name Unknown Organization [facility] Address [place] [address] Care Team Providers Care Shoe Cobbler Name Role Phone Farooq Rodríguez Primary Care Provider [phone] Reason for Visit * Reason Onset Date Comments COVID-19 Screening 07/20/2021 Encounter Details Date Type Department Care Team Description 07/20/2021 Telephone COVID19 Screening [facility] [address] [place] [address] [id number], Automated Provider COVID-19 Screening Allergies No Known Active Allergiesdocumented as of this encounter (statuses as of 07/21/2021) Medications Medication Sig Dispensed Refills Start Date [...] (PROAIR HFA) 108 (90 BASE) MCG/ACT inhalerIndications:Ac andreafski bronchitis, antibiotics not indicated Inhale 2 Puffs [...] 400 Units by mouth daily. 0 Active [place]-3 Fatty Acids (OMEGA 3 500) 500 MG CAPS Take by mouth. 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 Your COVID-19 from 07/18/2021 00:00:00 results are negative. This means you are NOT infected with coronavirus 19. If your cold/flu symptoms last longer than 7 days or get worse, contact your primary care physician. If you don't have a primary care physician, go to the nearest [facility] or urgent care clinic. To establish care with a [facility] provider, please call . Practice social distancing and good hand hygiene to keep yourself and others safe. Your results are also available for your reference in your [employer] account under 'Test & Lab Results.' If you are not enrolled in [employer], you can create an account by going to [email or web address]. You will also receive a letter in the mail with your results. If you are a [employer] staff member or employee, when you receive your result, please call [employer] between 7 a.m. and 4 p.m. at [phone]. Notify them of your test results and for instructions on returning to work after your quarantine period. Press 1 if you would like to speak with a nurse, press 2 to hear this message again. documented in this encounter Plan of Treatment Upcoming Encounters Date Type Specialty Care Team Description 08/26/2021 Office Visit Family Medicine Farooq Rodríguez, DO [address] [place] [address] [phone] 10/14/2021 Office Visit Cardiology Kath Carlin PA-C [address] [facility] [place] [address] [phone] Health Maintenance Due Date Last Done Comments [...] Documents on File Type Date Recorded Patient Hurricane Tracker Expl anation Advanced Directive Advanced Directive Advanced Directive Advanced Directive Advanced Directive Advanced Directive Advanced Directive Advanced Directive Advanced Directive Advanced Directive Advanced Directive Advanced Directive Advanced Directive Advanced Directive Advanced Directive Advanced Directive Advanced Directive Advanced Directive Advanced Directive Advanced Directive
--- OUTSIDE RECORDS SUMMARY | 2023-09-26 02:08 | External Medical Summary | Summary of Care ---
Author Name Unknown Organization [place] [address] Care Team Providers Care City Superintendent Of Schools Name Role Phone Farooq Rodríguez DO Primary Care Provider [phone] Reason for Visit * Reason Comments Acute Encounter Details Date Type Department Care Team Description 07/26/2021 Office Visit Family Practice [facility] [address] [facility] [place] [address] Farooq Rodríguez DO 200 [facility] [place] [address] [phone] Bronchitis, complicated* Allergies No Known Active Allergiesdocumented as of this encounter (statuses as of 07/26/2021) Medications Medication Sig Dispensed Refills Start Date End Date Status ASPIRIN 81 MG PO TABS One daily 0 Active ZYRTEC ALLERGY 10 MG PO TABS one daily 0 Active ALBUTEROL SULFATE (2.5 MG/3ML) 0.083% IN [facility] one vial every 6 hours as needed [...] 400 Units by mouth daily. 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 Pneumonia due to other virus not elsewhere class ified 12/24/2002 04/29/2021 documented as of this encounter (statuses as of 07/26/2021) Immunizations Name Administration Dates Next Due COVID-19 mRNA, LNP-s, No Pre serve, 2-Dose Series (Existence Before Essence) 04/09/2021,03/19/2021 Pneumococcal Conjugate Vacc, 13 Valent (Prevnar) [...] Sign Reading Time Taken Comments Blood Pressure 140/76 07/26/2021 6:23 PM EDT Pulse 72 07/26/2021 6:23 PM EDT Temperature 36.8 C (98.2 F) 07/26/2021 6:23 PM ED T Respiratory Rate 24 07/26/2021 6:23 PM EDT Oxygen Saturation 97% 07/26/2021 6:23 PM EDT Inhaled Oxygen Concentration - - Weight 114 kg (251 lb 6.4 oz) 07/26/2021 6:23 PM EDT Height - - Body Mass Index 38.23 10/27/2020 1:53 PM EST documented in this encounter Progress Notes * Farooq Rodríguez DO - 07/26/2021 6:26 PM EDT Subjective: Placido Dean is a 61 year old male. Chief Complaint Patient presents with Acute HPI: Pt here with a cough and SOB. He was in the hospital in early June. I had put him on Augmentin and it helped but not long and not all better. 2 weeks ago things got worse again. Trouble with work, gets sweaty. He has not checked his temperature. Gets a lot of sweats and chills. Chest tightness and SOB present. GEts sinus pressure and pain over his eyes. He has been using a Netipot. Bringing out green mucous. No ear pain. Some diarrhea. COVID test and negative. HE gets some dizzy spells with this. Check for heart with visit to the ER. PMHx, meds, and allergies reviewed Patient Active [...] Current Outpatient Medications Medication Sig Dispense Refill Potassium Chloride ER 10 MEQ Oral Tablet [...] (FLOMAX) Take 0.4 mg by mouth daily. meclizine (ANTIVERT) 25 MG Tablet Take 1 Tab by mouth 3 times a day as needed for Dizziness. 30 Tab3 Azelastine HCl 0.1 % nasal spray USE 2 SPRAY(S) IN EACH NOSTRIL TWICE DAILY 90 mL 1 [place]-3 Fatty Acids (OMEGA 3 500) 500 MG [...] MOUTH ONE TIME ONLY,REPEAT AFTER TWO HOURS ASNEEDED MAX OF FOUR TABLETS 12 Tab 0 albuterol (PROAIR HFA) 108 (90 BASE) MCG/ACT inhaler Inhale 2 Puffs by mouth 4 times a day. 1 Inhaler 1 HM VITAMIN D3 2000 UNITS PO CAPS 1 CAPSULE DAILY ALBUTEROL SULFATE (2.5 MG/3ML) 0.083% IN [facility] one vial every 6 hours as needed ZYRTEC ALLERGY 10 MG PO TABS one daily ASPIRIN 81 MG PO TABS One daily Review of patient's allergies indicates: No Known Allergies OBJECTIVE: BP 140/76 | Pulse 72 | Temp 36.8 C (98.2 F) (Tympanic) | Resp 24 | Wt 114 kg (251 lb 6.4 oz) | SpO2 97% | BMI 38.23 kg/m | BSA 2.34 m Estimated body mass index is 38.23 kg/m as calculated from the following: Height as of 10/27/20: 1.727 m (5' 8"). Weight as of this encounter: 114 kg (251 lb 6.4 oz). BP Readings from Last 3 Encounters: 07/26/21 140/76 06/24/21 114/80 04/29/21 114/72 Wt Readings from Last 3 Encounters: 07/26/21 114 kg (251 lb 6.4 oz) 06/24/21 111.9 kg (246 lb 9.6 oz) 04/29/21 113.2 kg (249 lb 9.6 oz) ROS: Negative except for above PHYSICAL EXAM: General: alert, healthy, no distress, well nourished and well developed Head: Normocephalic, and pain with palpation of maxillary sinuses Ears: External ears normal, Canals clear, TM's Normal Nose: no mucosal erythema, no mucosal edema, no purulent discharge Oropharynx: no exudate, no erythema, lips, buccal mucosa, and tongue normal and mucous membranes are moist Lymph: no palpable lymphadenopathy Heart: regular rate & rhythm, no murmurs and no gallops Lungs: clear to auscultation, poor air movement ASSESSMENT/Plan Bronchitis, complicated (Primary) - Doxycycline Hyclate 100 MG Oral Capsule; Take 1 Cap by mouth 2 times a day for 10 days. Until gone. - predniSONE 20 MG Oral Tablet (Deltasone); 1 tab 3 times a day for 3 days, then 1 tab 2 times a day for 3 days, then 1 tab daily for 3 days Christopher sounds tight. Start both pred and doxy. I do not have x-ray tonight to check his chest.Work forms completed for return to work Sunday. The above was discussed and understanding was expressed. Farooq Rodríguez DO documented in this encounter Nursing Notes * Lynn Padron LPN - 07/26/2021 6:21 PM EDT Patient presents with concerns for pneumonia. Reports cough, SOB, chest tightness. Was tested for COVID last Sunday, came back negative on 07/19/21. documented in this encounter Plan of Treatment Upcoming Encounters Date Type Specialty Care Team Description 08/26/2021 Office Visit Family Medicine Farooq Rodríguez DO 200 [facility] [place] [address] [phone] 10/14/2021 Office Visit Cardiology Kath Carlin PA-C 132 [facility] [place] [address] [phone] Health Maintenance Due Date Last Done Comments [...] as of this encounter Visit Diagnoses Diagnosis Bronchitis, complicated- Primary Bronchitis, not specified as acute or chronic documented in this encounter Advance Directives Documents on File Type Date Recorded Patient Damage Cutter Expl anation Advanced Directive Advanced Directive Advanced Directive Advanced Directive Advanced Directive Advanced Directive Advanced Directive Advanced Directive Advanced Directive Advanced Directive Advanced Directive Advanced Directive Advanced Directive Advanced Directive Advanced Directive Advanced Directive Advanced Directive Advanced Directive Advanced Directive Advanced Directive Advanced Directive
--- OUTSIDE RECORDS SUMMARY | 2023-09-26 02:09 | External Medical Summary | Summary of Care ---
Author Name Unknown Organization [facility] Address [place] [address] Care Team Providers Care Curling Machine Operator Name Role Phone Farooq Rodríguez DO Primary Care Provider [phone] Encounter Details Date Type Department Care Team Description 06/21/2021 Scan Encounter Unspecified Department <No scans attached> Allergies No Known Active Allergiesdocumented as of this encounter (statuses as of 06/23/2021) Medications Medication Sig Dispensed Refills Start Date [...] (PROAIR HFA) 108 (90 BASE) MCG/ACT inhalerIndications:Ac cecily bronchitis, antibiotics not indicated Inhale 2 Puffs [...] 400 Units by mouth daily. 0 Active [place]-3 Fatty Acids (OMEGA 3 500) 500 MG CAPS Take by mouth. 0 Active Azelastine HCl 0.1 % nasal sprayIndications:Black And White Printer Operator alison rhinitis USE 2 SPRAY(S) IN EACH NOSTRIL TWICE DAILY 90 mL 1 04/03/2019 Active meclizine (ANTIVERT) 25 MG Tablet Take 1 Tab by mouth 3 times a day as needed for Dizziness. 30 Tab 3 08/22/2019 Active lisinopril 40 MG TabletIndications:HTN , goal below 140/90 Take 1 Tab by mouth daily. 90 Tab 3 06/21/2020 Active Tamsulosin HCl 0.4 MG Oral Capsule (FLOMAX)Indications:G ross hematuria Take 0.4 mg by mouth daily. 0 Active Potassium Chloride ER 10 MEQ Oral Tablet Extended ReleaseIndications:HT N, goal below 140/90 Take 1 tablet by mouth once daily 90 Tab 1 12/21/2020 Active Spironolactone 25 MG Oral Tablet (Aldactone) [...] once daily 90 Tab 3 05/16/2021 Active documented as of this encounter (statuses as of 06/23/2021) Active Problems Problem Noted Date Chest pain [...] as of this encounter (statuses as of 06/23/2021) Resolved Problems Problem Noted Date Resolved Date Encounter for surveillance of abnormal nevi 03/2004/29/2021 Dyslipidemia, goal LDL below 100 06/01/2014 12/08/2015 Hypoactive thyroid 01/07/2013 12/11/2016 Bronchiectasis 04/18/2003 06/12/2017 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 Pneumonia due to other virus not elsewhere class ified 12/24/2002 04/29/2021 documented as of this encounter (statuses as of 06/23/2021) Immunizations Name Administration Dates Next Due COVID-19 [...] Encounters Date Type Specialty Care Team Description 06/24/2021 Office Visit Family Medicine Farooq Rodríguez, DO [address] [place] [address] [phone] 08/26/2021 Office Visit Family Medicine Farooq Rodríguez, [address] [place] [address] [address] [phone] 10/14/2021 Office Visit Cardiology Kath Carlin PA-C 132 [facility] [place] [address] [phone] Health Maintenance Due Date Last Done Comments Influenza Vaccine (FLU shot) (#1) 2021 08/18/2020, 08/20/2019, 07/20/2018, Additional history exists DIABETES SCREEN EVERY 3 [...] Documents on File Type Date Recorded Patient Brake Operator Helper Expl anation Advanced Directive Advanced Directive Advanced Directive Advanced Directive Advanced Directive Advanced Directive Advanced Directive Advanced Directive Advanced Directive Advanced Directive Advanced Directive Advanced Directive Advanced Directive Advanced Directive Advanced Directive Advanced Directive Advanced Directive Advanced Directive Advanced Directive
--- OUTSIDE RECORDS SUMMARY | 2023-09-26 02:09 | External Medical Summary | Summary of Care ---
Author Name Unknown Organization [place] [address] Care Team Providers Care Seaman Officer Name Role Phone Farooq Rodríguez DO Primary Care Provider [phone] Reason for Visit * Reason Onset Date Comments Advice 06/28/2021 Encounter Details Date Type Department Care Team Description 06/28/2021 Telephone Family Practice [facility] 200 [facility] [place] [address] Farooq Rodríguez DO 200 [facility] [place] [address] [phone] Advice Allergies No Known Active Allergiesdocumented as of this encounter (statuses as of 06/28/2021) Medications Medication Sig Dispensed Refills Start Date End Date Status ASPIRIN 81 MG PO TABS One daily 0 Active ZYRTEC ALLERGY 10 MG PO TABS one daily 0 Active ALBUTEROL SULFATE (2.5 MG/3ML) 0.083% IN [facility] one vial every 6 hours as [...] 400 Units by mouth daily. 0 Active [place]-3 Fatty Acids (OMEGA 3 500) 500 MG CAPS Take by mouth. 0 Active Azelastine HCl 0.1 % nasal sprayIndications:Chr onic rhinitis USE 2 SPRAY(S) IN EACH NOSTRIL TWICE DAILY 90 mL 1 04/03/2019 Active meclizine (ANTIVERT) 25 MG Tablet Take 1 Tab by mouth 3 times a day as needed for Dizziness. 30 Tab 3 08/22/2019 Active lisinopril 40 MG TabletIndications:HT N, goal below 140/90 Take 1 Tab by [...] once daily 90 Tab 3 05/16/2021 Active Amoxicillin-Pot Clavulanate 875-125 MG Oral TabletIndications:Ac [place] non-recurrent maxillary sinusitis Take 1 Tab by mouth every 12 hours for 10 days. 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 Patient has no further questions. * Telephone Encounter - Elizabeth Awad DO - 06/28/2021 2:31 PM EDT Please call: Dr. Rodríguez is out of the office this week. We usually don't provide excuse notes for masks. If you would like to discuss with him. Please schedule an appointment when he returns. Elizabeth Awad DO * Telephone Encounter - Cathie Enciso OSA - 06/28/2021 9:12 AM EDT Pt's spouse asking if the pt could have a letter for his employer stating that due to the pt's health, he is not able to wear a mask but would be able to wear a shield. Pt was told he needs to wear a mask while working starting today. Spouse would like to pick this note up. Please contact her at [phone] Please advise. documented in this encounter Plan of Treatment Upcoming Encounters Date Type Specialty Care Team Description 08/26/2021 Office Visit Family Medicine Farooq Rodríguez, DO [address] [place] [address] [phone] 10/14/2021 Office Visit Cardiology Kath Carlin PA-C 132 [facility] [place] [address] [phone] Health Maintenance Due Date Last Done Comments [...] Documents on File Type Date Recorded Patient Slag Wheeler Expl anation Advanced Directive Advanced Directive Advanced Directive Advanced Directive Advanced Directive Advanced Directive Advanced Directive Advanced Directive Advanced Directive Advanced Directive Advanced Directive Advanced Directive Advanced Directive Advanced Directive Advanced Directive Advanced Directive Advanced Directive Advanced Directive Advanced Directive
--- OUTSIDE RECORDS SUMMARY | 2023-09-26 02:09 | External Medical Summary | Summary of Care ---
Author Name Unknown Organization [facility] Address [place] [address] Care Team Providers Care Manager Icu Name Role Phone AntolinFarooq roger Primary Care Provider [phone] Reason for Visit * Reason Comments eRx-Medication Refill Encounter Details Date Type Department Care Team Description 07/03/2021 Refill Cardiology, [facility] [address] [place] [address] Krystal Lam PA-C 132 [facility] [place] [address] [phone] HTN, goal below 140/90 Allergies No Known Active Allergiesdocumented as of this encounter (statuses as of 07/04/2021) Medications Medication Sig Dispensed Refills Start Date End Date Status ASPIRIN 81 MG PO TABS One daily 0 Active ZYRTEC ALLERGY 10 MG PO TABS one daily 0 Active ALBUTEROL SULFATE (2.5 MG/3ML) 0.083% IN [facility] one vial every 6 hours as [...] 400 Units by mouth daily. 0 Active [place]-3 Fatty Acids (OMEGA 3 500) 500 MG CAPS Take by mouth. 0 Active Azelastine HCl 0.1 % nasal sprayIndications:C hronic rhinitis USE 2 SPRAY(S) IN EACH NOSTRIL TWICE DAILY 90 mL 1 04/03/2019 Active meclizine (ANTIVERT) 25 MG Tablet Take 1 Tab by mouth 3 times a day as needed for Dizziness. 30 Tab 3 08/22/2019 Active Tamsulosin HCl 0.4 MG Oral Capsule (FLOMAX)Indication s:Gross hematuria Take 0.4 mg by mouth daily. 0 Active Potassium Chloride ER 10 MEQ Oral Tablet Extended ReleaseIndications :HTN, goal below 140/90 Take 1 tablet by mouth once daily 90 Tab 1 12/21/2020 Active Spironolactone 25 MG Oral Tablet (Aldactone) TAKE 1 TABLET BY MOUTH ONCE DAILY IN THE MORNING 90 Tab 3 01/31/2021 Active Euthyrox 75 MCG Oral Tablet (levothyroxine)Ind ications:Hypothyro idism TAKE 1 TABLET BY MOUTH ONCE DAILY IN THE MORNING ON AN EMPTY STOMACH WITH A FULL GLASS OF WATER 90 Tab 2 03/07/2021 Active Furosemide 40 MG Oral Tablet (Lasix)Indications :HTN, goal below 140/90 Take 1 tablet by mouth once daily 90 Tab 2 03/07/2021 Active Amitriptyline HCl 25 MG Oral Tablet (Elavil)Indication s:Migraine variant Take 1 Tab by mouth at bedtime. 30 Tab 5 04/29/2021 Active Atorvastatin Calcium 40 MG Oral Tablet (Lipitor)Indicatio ns:CAD (coronary artery disease) Take 1 tablet by mouth once daily 90 Tab 3 05/16/2021 Active Amoxicillin-Pot Clavulanate 875-125 MG Oral TabletIndications: Acute non-recurrent maxillary sinusitis Take 1 Tab by mouth every 12 hours for 10 days. 20 Tab 0 06/24/2021 07/04/2021 Active Lisinopril 40 MG Oral TabletIndications: HTN, goal below 140/90 Take 1 tablet by mouth once daily 90 Tab 3 07/04/2021 Active lisinopril 40 MG TabletIndications: HTN, goal below 140/90 Take 1 Tab by mouth daily. 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 Pneumonia due to other virus not elsewhere class ified 12/24/2002 04/29/2021 documented as of this encounter (statuses as of 07/04/2021) Immunizations Name Administration Dates Next Due COVID-19 mRNA, LNP-s, No Pre serve, 2-Dose Series (InnSania) 04/09/2021,03/19/2021 Pneumococcal Conjugate Vacc, 13 Valent (Prevnar) [...] Telephone Encounter - Krystal Lam PA-C - 07/04/2021 2:03 PM EDT Signed Prescriptions: Disp Refills Lisinopril 40 MG Oral Tablet 90 Tab 3 Sig: Take 1 tablet by mouth once daily Authorizing Provider: KRYSTAL LAM * Telephone Encounter - Trey Marquis RN - 07/04/2021 10:50 AM EDT Pending Prescriptions: Disp Refills Lisinopril 40 MG Oral Tablet 90 Tab 3 Sig: Take 1 tablet by mouth once daily * Telephone Encounter - Trey Marquis RN - 07/04/2021 10:49 AM EDT Pending Prescriptions: Disp Refills Lisinopril 40 MG Oral Tablet 90 Tab 3 Sig: Take 1 tablet by mouth once daily Last Office/Telemedicine Visit: 04/08/2021 10/14/2021 Last medication order date: 06/21/2020 Have you choosen a preferred pharm?? yes [...] Chest pain with normal coronary angiography R07.9 Labs: Lab Results Component Value Date/Time CREATININE (GRL) 1.1 05/14/1997 09:48 AM CREATININE - [facility] 1.1 03/21/2021 07:49 AM CREATININE - [facility] 1.1 11/21/2019 09:45 AM CREATININE ISTAT 0.9 01/22/2013 10:24 AM Lab Results Component Value Date/Time POTASSIUM - [facility] 3.9 03/21/2021 07:49 AM POTASSIUM - [facility] 4.3 11/21/2019 09:45 AM POTASSIUM POCT - [facility] 3.5 01/22/2013 10:24 AM POTASSIUM, WHOLE BLOOD - [facility] 3.9 12/22/2002 07:00 PM Lab Results Component Value Date/Time TSH - [facility] 4.74 (H) 12/22/2020 12:12 PM TSH - [facility] 3.60 11/21/2019 09:45 AM Lab Results Component Value Date/Time LDL CHOLESTEROL (CALCULATED) - [facility] 81 12/22/2020 [...] Results Component Value Date/Time ALT - [facility] 43 03/21/2021 07:49 AM ALT - [facility] 33 11/21/2019 09:45 AM Hemoglobin AIC Results: No results found for: HEMOGLOBIN A1C documented in this encounter Plan of Treatment Upcoming Encounters Date Type Specialty Care Team Description 08/26/2021 Office Visit Family [facility] Faroo[facility] Rod[facility]uez[facility] [address] [phone] 10/14/2021 Office Visit Cardiology Krystal Lam PA-C [address] [place] [address] [phone] Health Maintenance Due Date Last Done Comments [...] Documents on File Type Date Recorded Patient Dialysis Chief Equipment Technician Expl anation Advanced Directive Advanced Directive Advanced Directive Advanced Directive Advanced Directive Advanced Directive Advanced Directive Advanced Directive Advanced Directive Advanced Directive Advanced Directive Advanced Directive Advanced Directive Advanced Directive Advanced Directive Advanced Directive Advanced Directive Advanced Directive Advanced Directive
--- OUTSIDE RECORDS SUMMARY | 2023-09-26 02:09 | External Medical Summary | Summary of Care ---
Author Name Unknown Organization [place] [address] Care Team Providers Care Screen Printing Stencil Preparer Name Role Phone Kelly Mitchell DO Primary Care Provider [phone] Reason for Visit * Reason Comments eRx-Medication Refill Encounter Details Date Type Department Care Team Description 07/03/2021 Refill Family Practice [facility] [address] [facility] [place] [address] Kelly Mitchell DO [address] [facility] [place] [address] [phone] HTN, goal below 140/90 Allergies No Known Active Allergiesdocumented as of this encounter (statuses as of 07/05/2021) Medications Medication Sig Dispensed Refills Start Date End Date Status ASPIRIN 81 MG PO TABS One daily 0 Active ZYRTEC ALLERGY 10 MG PO TABS one daily 0 Active ALBUTEROL SULFATE (2.5 MG/3ML) 0.083% IN [facility] one vial every 6 hours as needed [...] 400 Units by mouth daily. 0 Active [place]-3 Fatty Acids (OMEGA 3 500) 500 MG [...] 3 05/16/2021 Active Lisinopril 40 MG Oral TabletIndications: HTN, goal below 140/90 Take 1 tablet by mouth once daily 90 Tab 3 07/04/2021 Active Potassium Chloride ER 10 MEQ Oral Tablet Extended ReleaseIndications :HTN, goal below 140/90 Take 1 tablet by mouth once daily 90 Tab 2 07/05/2021 Active Potassium Chloride ER 10 MEQ Oral Tablet Extended ReleaseIndications :HTN, goal below 140/90 Take 1 tablet by mouth once daily 90 Tab 1 12/21/2020 07/05/2021 Discontinued documented as of this encounter (statuses as of 07/05/2021) Active Problems Problem Noted Date Chest pain [...] as of this encounter (statuses as of 07/05/2021) Resolved Problems Problem Noted Date Resolved Date Encounter for surveillance of abnormal nevi 03/2004/29/2021 Dyslipidemia, goal LDL below 100 06/01/2014 12/08/2015 Hypoactive thyroid 01/07/2013 12/11/2016 Bronchiectasis 04/18/2003 06/12/2017 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 Pneumonia due to other virus not elsewhere class ified 12/24/2002 04/29/2021 documented as of this encounter (statuses as of 07/05/2021) Immunizations Name Administration Dates Next Due COVID-19 mRNA, LNP-s, No Pre serve, 2-Dose Series ([employer]) 04/09/2021,03/19/2021 Pneumococcal Conjugate Vacc, 13 Valent (Prevnar) [...] encounter Miscellaneous Notes * Telephone Encounter - Berenice Flaherty RPh - 07/05/2021 10:45 AM EDT Signed Prescriptions: Disp Refills Potassium Chloride ER 10 MEQ Oral Tablet E*90 Tab 2 Sig: Take 1 tablet by mouth once dailyAuthorizing Provider: KELLY MITCHELL User: BERENICE FLAHERTY--- documented in this encounter Plan of Treatment Upcoming Encounters Date Type Specialty Care Team Description 08/26/2021 Office Visit [facility] [address] [phone] 10/14/2021 Office Visit Cardiology Kath Carlin PA-C 132 [facility] [place] [address] Health Maintenance Due Date Last Done Comments [...] Documents on File Type Date Recorded Patient Database Consultant Expl anation Advanced Directive Advanced Directive Advanced Directive Advanced Directive Advanced Directive Advanced Directive Advanced Directive Advanced Directive Advanced Directive Advanced Directive Advanced Directive Advanced Directive Advanced Directive Advanced Directive Advanced Directive Advanced Directive Advanced Directive Advanced Directive Advanced Directive
--- OUTSIDE RECORDS SUMMARY | 2023-09-26 02:09 | External Medical Summary | Summary of Care ---
Author Name Unknown Organization [facility] [place] [address] Care Team Providers Care Retail Tire Sales Manager Name Role Phone Farooq Rodríguez DO Primary Care Provider [phone] Reason for Visit * Reason Onset Date Comments Other COVID symptoms COVID-19 Screening 07/18/2021 Encounter Details Date Type Department Care Team Description 07/18/2021 [facility] [place] [facility] [place] [address] [place] Nurse [facility] [address] [facility] [place] [address] [phone] Suspected 2019 novel coronavirus infection*; COVID-19 Allergies No Known Active Allergiesdocumented as of this encounter (statuses as of 07/18/2021) Medications Medication Sig Dispensed Refills Start Date [...] (PROAIR HFA) 108 (90 BASE) MCG/ACT inhalerIndications:Ac qagan tayagungin bronchitis, antibiotics not indicated Inhale 2 Puffs [...] 400 Units by mouth daily. 0 Active [place]-3 Fatty Acids (OMEGA 3 500) 500 MG CAPS Take by mouth. 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 Self swab completed. Tolerated well. Advised to quarantine until test results come back, GO to ER of severe sym[ptoms develop. Patient verbalized understanding. documented in this encounter Plan of Treatment Upcoming Encounters Date Type Specialty Care Team Description 08/26/2021 Office Visit Family Medicine Farooq Rod[facility] [address] [facility] [address] [phone] 10/14/2021 Office Visit Cardiology Kath Carlin PA-C [address] [facility] [place] [address] [phone] Pending Results Name Type Priority Associated Diagnoses Date /Time SARS-COV-2 (COVID-19), NAAT Lab Routine Suspected 2019 novel coronavirus infection 07/18/2021 1:31 PM EDT Health Maintenance Due Date Last Done Comments [...] as of this encounter Visit Diagnoses Diagnosis Suspected 2019 novel coronavirus infection- Primary COVID-19 documented in this encounter Advance Directives Documents on File Type Date Recorded Patient Mine Supervisor Expl anation Advanced Directive Advanced Directive Advanced Directive Advanced Directive Advanced Directive Advanced Directive Advanced Directive Advanced Directive Advanced Directive Advanced Directive Advanced Directive Advanced Directive Advanced Directive Advanced Directive Advanced Directive Advanced Directive Advanced Directive Advanced Directive Advanced Directive Advanced Directive
--- OUTSIDE RECORDS SUMMARY | 2023-09-26 02:09 | External Medical Summary ---
Author Name Unknown Address Unknown Organization K01:[facility] [place] [address] [facility] [address] Laboratory Report Ordering Provider Test Date Status ZAFAR BINGHAM 07/18/2021 13:31:12 Final Observation Date Value Abnormality Reference (Units ) Status SARS Coronavirus 2 07/18/2021 13:31:12 Negative N egative Final 2018 Novel Coronavirus not d etected.

This automated test was developed and its performance characteristics determined by [facility]. It has not been cleared or approved by the U.S. Food and Drug Administration (FDA). FDA does not require this test to go thru premarket FDA review. This test is used for clinical purposes. It should not be regarded as investigational or for research. This laboratory is certified under the Clinical Laboratory Improvement Amendments (CLIA) as qualified to perform high complexity clinical laboratory testing.

This test is a nucleic acid amplification test (NAAT), a reverse transcriptase polymerase chain reaction (RT-PCR) test, or a Centers for Disease Control-acceptable equivalent. The test is performed in a high complexity Clinical Laboratory Improvement Amendments-(CLIA) certified laboratory. The test is acceptable for SARS-CoV-2 diagnosis, surveillance, and travel within the [place] and to most countries. Please check with local testing authorities about requirements before travel. Performing Location [facility] [place] [facility] [address] [facility] [place] [address]
--- OUTSIDE RECORDS SUMMARY | 2023-09-26 02:09 | External Medical Summary | Summary of Care ---
Author Name Unknown Organization [place] [address] Care Team Providers Care Hospital Carrier Name Role Phone Farooq Rodríguez DO Primary Care Provider [phone] Reason for Visit * Reason Comments Emergency Department Follow-Up Encounter Details Date Type Department Care Team Description 06/24/2021 Office Visit [facility] [address] [facility] [place] [address] Farooq Rodríguez DO [address] [facility] [place] [address] [phone] Acute non-recurrent maxillary sinusitis* Allergies No Known Active Allergiesdocumented as of this encounter (statuses as of 07/09/2021) Medications Medication Sig Dispensed Refills Start Date [...] 400 Units by mouth daily. 0 Active [place]-3 Fatty Acids (OMEGA 3 500) 500 MG [...] once daily 90 Tab 3 05/16/2021 Active lisinopril 40 MG TabletIndications: HTN, goal below 140/90 Take 1 Tab by mouth daily. 90 Tab 3 06/21/2020 07/04/2021 Discontinued Potassium Chloride ER 10 MEQ Oral Tablet Extended ReleaseIndications :HTN, goal below 140/90 Take 1 tablet by mouth once daily 90 Tab 1 12/21/2020 07/05/2021 Discontinued Amoxicillin-Pot Clavulanate 875-125 MG Oral TabletIndications: Acute non-recurrent maxillary sinusitis Take 1 Tab by mouth every 12 hours for 10 days. 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 Pneumonia due to other virus not elsewhere class ified 12/24/2002 04/29/2021 documented as of this encounter (statuses as of 07/09/2021) Immunizations Name Administration Dates Next Due COVID-19 mRNA, LNP-s, No Pre serve, 2-Dose Series ([employer]) 04/09/2021,03/19/2021 Pneumococcal Conjugate Vacc, 13 Valent (Prevnar) [...] Sign Reading Time Taken Comments Blood Pressure 114/80 06/24/2021 1:33 PM EDT Pulse 78 06/24/2021 1:33 PM EDT Temperature 36.9 C (98.4 F) 06/24/2021 1:33 PM ED T Respiratory Rate 18 06/24/2021 1:33 PM EDT Oxygen Saturation 98% 06/24/2021 1:33 PM EDT Inhaled Oxygen Concentration - - Weight 111.9 kg (246 lb 9.6 oz) 06/24/2021 1:33 PM EDT Height - - Body Mass Index 37.5 10/27/2020 1:53 PM EST documented in this encounter Progress Notes * Farooq Rodríguez DO - 06/24/2021 1:53 PM EDT Subjective: Placido Dean is a 60 year old male. Chief Complaint Patient presents with Emergency Department Follow-Up HPI: Pt to the ER on 06/21 for body aches and chest pain. He also had a fever and chills. He had already received the COVID vaccine and been tested or COVID. He had the symptoms for 1 day's time but was getting worse. He felt like he was retaining fluid. He was retetsed for COVID and negative. His troponin was negative and his BNP was 320. EKG was unchanged. CXR was clear. Feeling a little better but still getting some chest pain. He still coughs some, dry cough. HEadache continues. Some dizzy spells. At this point it has been 5 days. Headache is up behind his eyes. Gets migraine like this. He has some PND. No f or C now. Checked for COVID twice. Chest pain is coming and going for about a month. Dizzy spells and cough off and on too. He takes Meclizine and it helps. He uses Zyrtec and nasal spray. They did do a Lyme test there. PMHx, meds, and allergies reviewed Patient Active [...] Current Outpatient Medications Medication Sig Dispense Refill Atorvastatin Calcium 40 MG Oral Tablet (Lipitor) [...] DAILY IN THE MORNING 90 Tab 3 Potassium Chloride ER 10 MEQ Oral Tablet Extended Release Take 1 tablet by mouth once daily 90 Tab 1 Tamsulosin HCl 0.4 MG Oral Capsule (FLOMAX) Take 0.4 mg by mouth daily. lisinopril 40 MG Tablet Take 1 Tab by mouth daily. 90 Tab 3 meclizine (ANTIVERT) 25 MG Tablet Take 1 Tab by mouth 3 times a day as needed for Dizziness. 30 Tab3 Azelastine HCl 0.1 % nasal spray USE 2 SPRAY(S) IN EACH NOSTRIL TWICE DAILY 90 mL 1 [place]-3 Fatty Acids (OMEGA 3 500) 500 MG [...] allergies indicates: No Known Allergies OBJECTIVE: BP 114/80 | Pulse 78 | Temp 36.9 C (98.4 F) (Tympanic) | Resp 18 | Wt 111.9 kg (246 lb 9.6 oz) | SpO2 98% | BMI 37.50 kg/m | BSA 2.32 m Estimated body mass index is 37.5 kg/m as calculated from the following: Height as of 10/27/20: 1.727 m (5' 8"). Weight as of this encounter: 111.9 kg (246 lb 9.6 oz). BP Readings from Last 3 Encounters: 06/24/21 114/80 04/29/21 114/72 04/08/21 122/62 Wt Readings from Last 3 Encounters: 06/24/21 111.9 kg (246 lb 9.6 oz) 04/29/21 113.2 kg (249 lb 9.6 oz) 04/08/21 112.3 kg (247 lb 9.6 oz) ROS: Negative except for [...] murmurs and no gallops Lungs: clear to auscultation ASSESSMENT/Plan Acute non-recurrent maxillary sinusitis (Primary) - Amoxicillin-Pot Clavulanate 875-125 MG Oral Tablet; Take 1 Tab by mouth every 12 hours for 10 days. History of heart testing discussed. The above was discussed and understanding was expressed. Farooq Rodríguez DO documented in this encounter Nursing Notes * Lynn Padron LPN - 06/24/2021 1:33 PM EDT Patient presents for ER follow up. Still feeling a little achy and under the weather. documented in this encounter Plan of Treatment Upcoming Encounters Date Type Specialty Care Team Description 08/26/2021 Office Visit Family Medicine Farooq Rodríguez DO [address] [facility] [place] [address] [phone] 10/14/2021 Office Visit Cardiology Kath Carlin PA-C [address] [place] [address] [phone] Health Maintenance Due Date Last Done Comments [...] of this encounter Visit Diagnoses Diagnosis Acute non-recurrent maxillary sinusitis- Primary documented in this encounter Advance Directives Documents on File Type Date Recorded Patient Underwriting Sales Representative Expl anation Advanced Directive Advanced Directive Advanced Directive Advanced Directive Advanced Directive Advanced Directive Advanced Directive Advanced Directive Advanced Directive Advanced Directive Advanced Directive Advanced Directive Advanced Directive Advanced Directive Advanced Directive Advanced Directive Advanced Directive Advanced Directive Advanced Directive
--- OUTSIDE RECORDS SUMMARY | 2023-09-26 02:10 | External Medical Summary | Summary of Care ---
Author Name Unknown Organization [place] [address] Care Team Providers Care Customs House Broker Name Role Phone Farooq Rodríguez DO Primary Care Provider [phone] Reason for Visit * Reason Onset Date Comments Emergency Department Follow-Up 06/22/2021 [facility] ER follow-up 06/21/21 Encounter Details Date Type Department Care Team Description 06/22/2021 Telephone Family Practice [facility] [address] [place] [address] Farooq Rodríguez DO [address] [facility] [place] [address] [phone] Emergency Department Follow-Up ([facility] ER fo... Allergies No Known Active Allergiesdocumented as of this encounter (statuses as of 06/22/2021) Medications Medication Sig Dispensed Refills Start Date [...] (PROAIR HFA) 108 (90 BASE) MCG/ACT inhalerIndications:Ac [place] bronchitis, antibiotics not indicated Inhale 2 Puffs [...] 400 Units by mouth daily. 0 Active [place]-3 Fatty Acids (OMEGA 3 500) 500 MG CAPS Take by mouth. 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 Pneumonia due to other virus not elsewhere class ified 12/24/2002 04/29/2021 documented as of this encounter (statuses as of 06/22/2021) Immunizations Name Administration Dates Next Due COVID-19 mRNA, LNP-s, No Pre serve, 2-Dose Series ([employer]) 04/09/2021,03/19/2021 Pneumococcal Conjugate Vacc, 13 Valent (Prevnar) [...] encounter Miscellaneous Notes * Telephone Encounter - Yahaira Mai LPN - 06/22/2021 8:37 AM EDT Emergency Department Follow Up: Did patient call the office before going to ER: No When was patient seen: 06.21.21 Which ED: [facility] ED What were they seen for: chest pain, body aches, MADRID What testing did they have done: cxr, ekg, lab work, ct scan and urine tests, Covid What did ED think was wrong (dx): No Any new medications prescribed: None How is patient feeling today: little better, not great Patient concerns today: what is causing his pain Scheduled 06.24.21 @ 1340 * Telephone Encounter - Danelle Oneal OSA - 06/22/2021 8:29 AM EDT Reason for patient's call: [facility] ER Follow-up 06/21/21 chest pain Caller was transferred to [facility] at the nurse line. documented in this encounter Plan of Treatment Upcoming Encounters Date Type Specialty Care Team Description 06/24/2021 Office Visit Family Medicine Farooq Rodríguez, DO [address] [place] [address] [phone] 08/26/2021 Office Visit Family Medicine Farooq Rodríguez, DO [address] [place], [place] [address] [phone] 10/14/2021 Office Visit Cardiology Kath Carlin PA-C [address] [facility] [place] [address] [phone] Health Maintenance Due Date Last Done Comments [...] Documents on File Type Date Recorded Patient Validation Leader Expl anation Advanced Directive Advanced Directive Advanced Directive Advanced Directive Advanced Directive Advanced Directive Advanced Directive Advanced Directive Advanced Directive Advanced Directive Advanced Directive Advanced Directive Advanced Directive Advanced Directive Advanced Directive Advanced Directive Advanced Directive Advanced Directive Advanced Directive
--- OUTSIDE RECORDS SUMMARY | 2023-09-26 02:10 | External Medical Summary | Summary of Care ---
Author Name Unknown Organization [place] [address] Care Team Providers Care Psychological Examiner Name Role Phone Farooq Rodríguez DO Primary Care Provider [phone] Encounter Details Date Type Department Care Team Description 05/13/2021 Orders Only [facility] Department [address] [place] [address] Monster Riddle CHRA [employer] [facility] Other*[id number] Allergies No Known Active Allergiesdocumented as of this encounter (statuses as of 05/13/2021) Medications Medication Sig Dispensed Refills Start Date [...] (PROAIR HFA) 108 (90 BASE) MCG/ACT inhalerIndications:Ac [place] bronchitis, antibiotics not indicated Inhale 2 Puffs [...] Units by mouth daily. 0 Active [place]-3 Fatty Acids (OMEGA 3 500) 500 MG CAPS Take by mouth. 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 30 Tab 3 08/22/2019 Active atorvaSTATin (LIPITOR) 40 MG TabletIndications:CAD (coronary artery disease) Take 1 tablet by mouth once daily 90 Tab 3 04/26/2020 Active lisinopril 40 MG TabletIndications:HTN , goal [...] at bedtime. 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 Pneumonia due to other virus not elsewhere class ified 12/24/2002 04/29/2021 documented as of this encounter (statuses as of 05/13/2021) Immunizations Name Administration Dates Next Due COVID-19 mRNA, LNP-s, No Pre serve, 2-Dose Series ([employer]) 04/09/2021,03/19/2021 Pneumococcal Conjugate Vacc, 13 Valent [...] Family Medicine Farooq Rodríguez, DO [address] [facility] [address] [phone] 10/14/2021 Office Visit Cardiology Kath Carlin PA-C [address] [facility] [place] [address] [phone] Scheduled Orders Name Type Priority Associated Diagnoses Orde r Schedule MYCODE SUBSEQUENT ADULT Lab Routine [employer] [facility] Other*[id number] Every 6 Months for 2 Occurrences starting 05/13/2021 until 06/02/2022 Health Maintenance Due Date Last Done Comments DIABETES SCREEN EVERY 3 YRS-AGE 45 AND [...] this topic Zoster Vaccines Completed 04/23/2019, 02/17/2019 Influenza Vaccine (FLU shot) Completed , 08/20/2019, 07/20/2018, Additional history exists COVID-19 Vaccine Completed 04/09/2021, 03/19/2021 MENINGOCOCCAL (MENACTRA/MENVEO) Aged Out No longer eligible based on patient's age to complete this topic documented as of this encounter Implants Not on filedocumented as of this encounter Visit Diagnoses Diagnosis [employer] [facility] Other*[id number] documented in this encounter Advance Directives Documents on File Type Date Recorded Patient Family Assessment Worker Expl anation Advanced Directive Advanced Directive Advanced Directive Advanced Directive Advanced Directive Advanced Directive Advanced Directive Advanced Directive Advanced Directive Advanced Directive Advanced Directive Advanced Directive Advanced Directive Advanced Directive Advanced Directive Advanced Directive Advanced Directive Advanced Directive
--- OUTSIDE RECORDS SUMMARY | 2023-09-26 02:10 | External Medical Summary | Summary of Care ---
Author Name Unknown Organization [place] [address] Care Team Providers Care Marketing Strategy Lead Name Role Phone Farooq Rodríguez DO Primary Care Provider [phone] Reason for Visit * Reason Comments Follow Up Encounter Details Date Type Department Care Team Description 04/29/2021 Office Visit Family Practice [facility] [address] [facility] [place] [address] Farooq Rodríguez DO [address] [facility] [place] [address] [phone] Migraine variant*; HTN, goal below 140/90; Gastroesophageal reflux disease without esophagitis; Dilated aortic root (HCC); Chronic diastolic (congestive) heart failure (HCC) Allergies No Known Active Allergiesdocumented as of this encounter (statuses as of 04/29/2021) Medications Medication Sig Dispensed Refills Start Date [...] (PROAIR HFA) 108 (90 BASE) MCG/ACT inhalerIndications:Ac [place] bronchitis, antibiotics not indicated Inhale 2 Puffs [...] 400 Units by mouth daily. 0 Active [place]-3 Fatty Acids (OMEGA 3 500) 500 MG CAPS Take by mouth. 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 Pneumonia due to other virus not elsewhere class ified 12/24/2002 04/29/2021 documented as of this encounter (statuses as of 04/29/2021) Immunizations Name Administration Dates Next Due COVID-19 mRNA, LNP-s, No Pre serve, 2-Dose Series (Essential Viewing) 04/09/2021,03/19/2021 Pneumococcal Conjugate Vacc, 13 Valent (Prevnar) [...] Sign Reading Time Taken Comments Blood Pressure 114/72 04/29/2021 2:08 PM EDT Pulse 62 04/29/2021 2:08 PM EDT Temperature 36.3 C (97.4 F) 04/29/2021 2:08 PM ED T Respiratory Rate 18 04/29/2021 2:08 PM EDT Oxygen Saturation 98% 04/29/2021 2:08 PM EDT Inhaled Oxygen Concentration - - Weight 113.2 kg (249 lb 9.6 oz) 04/29/2021 2:08 PM EDT Height - - Body Mass Index 37.95 10/27/2020 1:53 PM EST documented in this encounter Progress Notes * Farooq Rodríguez DO - 04/29/2021 2:28 PM EDT Subjective: Placido Dean is a 60 year old male. Chief Complaint Patient presents with Follow Up HPI: Pt here in follow-up. Cath normal but he gets left sided chest pain still. He was getting it every day for awhile. No happening currently but none in a week or two. It is an ache or pressure. Not a numbness, tingling or burning. He last ate at 11 AM. This pain does come when he gets stressed at work. Currently better because work is better. HE has also had a lot of migraine headaches. He has been taking Imitrex. Does not get it at the same time. Still getting headaches. He is listed as contraindicated to a beta-delia. Both knees are rough. He sees a chiropractor. Right now he is disinteretsed in things. He is always tired. PMHx, meds, and allergies reviewed Patient Active [...] seborrheic keratosis L82.0 Multiple pigmented nevi D22.9 Encounter for surveillance of abnormal nevi Z13.89 Dilated aortic root (HCC) I77.810 Bradycardia R00.1 Ascending aorta dilatation (HCC) I77.810 Chronic diastolic (congestive) heart failure (HCC) I50.32 Chest pain with normal coronary angiography R07.9 Current Outpatient Medications Medication Sig Dispense Refill Euthyrox 75 MCG Oral Tablet (levothyroxine) TAKE [...] Tab by mouth daily. 90 Tab 3 atorvaSTATin (LIPITOR) 40 MG Tablet Take 1 tablet by mouth once daily 90 Tab 3 meclizine (ANTIVERT) 25 MG Tablet Take 1 Tab by mouth 3 times a day as needed for Dizziness. 30 Tab3 Azelastine HCl 0.1 % nasal spray USE 2 SPRAY(S) IN EACH NOSTRIL TWICE DAILY 90 mL 1 Grubbs-3 Fatty Acids (OMEGA 3 500) 500 MG [...] allergies indicates: No Known Allergies OBJECTIVE: BP 114/72 | Pulse 62 | Temp 36.3 C (97.4 F) (Tympanic) | Resp 18 | Wt 113.2 kg (249 lb 9.6 oz) | SpO2 98% | BMI 37.95 kg/m | BSA 2.33 m Estimated body mass index is 37.95 kg/m as calculated from the following: Height as of 10/27/20: 1.727 m (5' 8"). Weight as of this encounter: 113.2 kg (249 lb 9.6 oz). BP Readings from Last 3 Encounters: 04/29/21 114/72 04/08/21 122/62 03/04/21 122/64 Wt Readings from Last 3 Encounters: 04/29/21 113.2 kg (249 lb 9.6 oz) 04/08/21 112.3 kg (247 lb 9.6 oz) 03/04/21 111.6 kg (246 lb 1.9 oz) ROS: Negative except for above PHYSICAL EXAM: General: alert, no distress and obese Head: Normocephalic, No masses, lesions, tenderness or abnormalities Heart: regular rate & rhythm, no murmurs and no gallops Lungs: chest symmetric with normal AP diameter, no chest deformities noted, no chest wall tenderness, lungs clear to auscultation Abdomen: abdomen soft, non-tender, normal bowel sounds and no masses or organomegaly ASSESSMENT/Plan Migraine variant (Primary) - Amitriptyline HCl 25 MG Oral Tablet (Elavil); Take 1 Tab by mouth at bedtime. HTN, goal below 140/90 Gastroesophageal reflux disease without esophagitis Dilated aortic root (HCC) Chronic diastolic (congestive) heart failure (HCC) Will start TCA in hopes of helping both migraines and his mood. Take before bed. Psychology offeredalso. I don't see a good documentation as to why B-blockers are contraindicated but that does hold us off on a good treatment. The above was discussed and understanding was expressed. Farooq Rodríguez DO documented in this encounter Nursing Notes * Lynn Padron LPN - 04/29/2021 2:08 PM EDT Carlos Abalaji Dean presents for 6 month recheck. Medications & HM reviewed. documented in this encounter Plan of Treatment Upcoming Encounters Date Type Specialty Care Team Description 08/26/2021 Office Visit Family Medicine Farooq Rodríguez DO [address] [place] [address] [phone] 10/14/2021 Office Visit Cardiology Kath Carlin PA-C [address] [facility] [place] [address] [phone] Health Maintenance Due Date Last Done Comments *DEPRESSION SCREENING,ANNUAL FOR PTS 12 AND OVER 07/22/2019 DIABETES SCREEN EVERY 3 YRS-AGE 45 AND [...] of this encounter Visit Diagnoses Diagnosis Migraine variant- Primary Variants of migraine, not elsewhere classified, without mention of intractable migraine without mention of status migrainosus HTN, goal below 140/90 Unspecified essential hypertension Gastroesophageal reflux disease without esophagitis Esophageal reflux Dilated aortic root (HCC) Thoracic aortic ectasia Chronic diastolic (congestive) heart failure (HCC) documented in this encounter Advance Directives Documents on File Type Date Recorded 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
--- OUTSIDE RECORDS SUMMARY | 2023-09-26 02:10 | External Medical Summary | Summary of Care ---
Author Name Unknown Organization [facility] Address [place] [address] Care Team Providers Care Dress Fitter Name Role Phone Farooq Rodríguez Primary Care Provider [phone] Encounter Details Date Type Department Care Team [...] 400 Units by mouth daily. 0 Active [place]-3 Fatty Acids (OMEGA 3 500) 500 MG CAPS Take by mouth. 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 02/10/2021 Pneumonia due to other [...] Medicine Farooq Rodríguez, DO [address] [place] [address] [phone] 08/26/2021 Office Visit Family Medicine Farooq Rodríguez, [address] [place] [address] [phone] 10/14/2021 Office Visit Cardiology Kath Carlin PA-C [address] [facility] [place] [address] [phone] Health Maintenance Due Date Last Done Comments [...] Documents on File Type Date Recorded Patient Bargeman Expl anation Advanced Directive Advanced Directive Advanced Directive Advanced Directive Advanced Directive Advanced Directive Advanced Directive Advanced Directive Advanced Directive Advanced Directive Advanced Directive Advanced Directive Advanced Directive Advanced Directive Advanced Directive Advanced Directive Advanced Directive Advanced Directive Advanced Directive
--- OUTSIDE RECORDS SUMMARY | 2023-09-26 02:11 | External Medical Summary | Summary of Care ---
Author Name Unknown Organization [facility] Address [place] [address] Care Team Providers Care Group Underwriter Name Role Phone AntolinFarooq roger Primary Care Provider [phone] Reason for Visit * Reason Comments Follow Up Encounter Details Date Type Department Care Team Description 04/08/2021 Office Visit Cardiology, [facility] [address] [place] [address] Kath Carlin PA-C [address] [place] [address] [phone] Chest pain with normal coronary angiography*; Ascending aorta dilatation (HCC); Chronic diastolic (congestive) heart failure (HCC); Bradycardia; Dilated aortic root (HCC); HTN, goal below 140/90 Allergies No Known Active Allergiesdocumented as of this encounter (statuses as of 04/08/2021) Medications Medication Sig Dispensed Refills Start Date [...] 400 Units by mouth daily. 0 Active Alvin-3 Fatty Acids (OMEGA 3 500) 500 MG CAPS Take by mouth. 0 Active Azelastine HCl 0.1 % nasal sprayIndications:Folder Hand alison rhinitis USE 2 SPRAY(S) IN EACH [...] once daily 90 Tab 2 03/07/2021 Active documented as of this encounter (statuses as of 04/08/2021) Active Problems Problem Noted Date Chest pain with normal coronary angiogra phy 04/08/2021 Ascending aorta dilatation 12/01/2020 Chronic diastolic (congestive) heart kelly lure 12/01/2020 Bradycardia 05/31/2020 Dilated aortic root 12/11/2016 Encounter for surveillance of abnormal n renu 04/08/2015 Neoplasm of uncertain behavior of skin 0 [...] CYST W-O ABSC 07/22/2004 Pericardial effusion 04/18/2003 Pneumonia due to other virus not elsewhe re classified 12/24/2002 documented as of this encounter (statuses as of 04/08/2021) Resolved Problems Problem Noted Date Resolved Date Dyslipidemia, goal LDL below 100 06/01/2014 12/08/2015 Hypoactive thyroid 01/07/2013 12/11/2016 Bronchiectasis 04/18/2003 06/12/2017 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 02/10/2021 documented as of this encounter (statuses as of 04/08/2021) Immunizations Name Administration Dates Next Due Pneumococcal Conjugate Vacc, 13 Valent (Prevnar) 08/19/2010 Pneumococcal Conjugate Vacci ne, 7 Valent 10/15/2002 Pneumococcal Polysaccharide PPV23 (Pneumovax) 08/19/2010 Seasonal Influenza, Quadriva lent, No Preserve, IM 08/18/2020,08/20/2019,08/03/2016 Seasonal Influenza, Trivalen t, with Preserve, 3yr & Above, Split 07/20/2018,08/03/2015,08/03/2014,08/06,08/14/2012,08/26/2009,09/03/2003 ,10/15/2002 TD, Preservative Free 10/27/2020 TDAP (age 11 and older)(Adacel) 09/13/2009 Zoster Vaccine Recombinant (Shingrix) 04/23/2019 ,02/17/2019 documented as of this encounter Social History Tobacco Use Types Packs/Day Years Used Date Never Smoker Smokeless Tobacco: Former User Chew Quit: 04/21/2012 Tobacco Cessation:Counseling Given: No Comments:quit Alcohol Use Drinks/Week oz/Week Comments Yes 6 12 oz of beer 5.0 Sex Assigned at Date Recorded Not on file Job Start Date Occupation Industry Not on file Not on file Not on file documented as of this encounter Last Filed Vital Signs Vital Sign Reading Time Taken Comments Blood Pressure 122/62 04/08/2021 2:20 PM EDT Pulse 54 04/08/2021 2:20 PM EDT Temperature 36.1 C (97 F) 04/08/2021 2:20 PM EDT Respiratory Rate 16 04/08/2021 2:20 PM EDT Oxygen Saturation - - Inhaled Oxygen Concentration - - Weight 112.3 kg (247 lb 9.6 oz) 04/08/2021 2:20 PM EDT Height - - Body Mass Index 37.65 10/27/2020 1:53 PM EST documented in this encounter Progress Notes * Kath Carlin PA-C - 04/08/2021 2:56 PM EDT 04/08/2021 Cardiology F/U: History of Present Illness: Mr. Dean is a 60 year old male who presents today for close cardiology follow- up. Last clinic evaluation approximately 1 month ago with the undersigned. 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 for pericardiocentesis. F/U echocardiograms demonstrated normal pericardium without pericardial effusion, normal EF, andno significant valvular disease with dilated aortic root measuring 4.7 cm and ascending aortic dilation measuring 4.0 cm. Other history significant for inflammatory pulmonary disease for which he follows with [facility], dyslipidemia, hepatic steatosis, hypertension, obesity, and chronic diastolic HF controlled on low dose furosemide. Over the last several months, patient was evaluated in a local emergency department for chest pain.Cardiac enzymes were unremarkable. EKG without acute changes. Chest CT was unremarkable. Per ER notes, symptoms correlated to possible musculoskeletal chest pain. However due to recurrent symptoms, he underwent dobutamine stress echo with reproducible chest pain during the test, normal echocardiographic imaging but equivocal EKG changes during the stress test. Due to his recurrent symptoms and equivocal stress testing, he was sent for diagnostic cardiac catheterization on March 23, 2021 at [facility] with Dr. Sigala demonstrating normal coronary arteries. He presents today for close follow-up. Cath site is well healed without issues. He does admit to intermittent chest tightness at work under emotional stressors or possibly with heavy lifting. He had an episode last week lasting approximately 20 minutes. Resolves spontaneously. No rhyme or reason tospecific exertion. He is able to walk without exertional chest pain. No unusual shortness of breath. Blood pressure is well controlled. He does admit to lower extremity edema worse after working extended shifts. Edema resolves overnight or after elevating feet. He is taking his meds as prescribed. Review of Systems: See HPI for pertinent positives. All other 10 point review of systems is negative. Patient Active Problem List Diagnosis Code Pneumonia due to other virus not elsewhere classified J12.89 Pericardial effusion I31.3 PILONIDAL CYST W-O ABSC [...] Chronic diastolic (congestive) heart failure (HCC) I50.32 Social History Tobacco Use Smoking status: Never Smoker Smokeless tobacco: Former User Types: Chew Tobacco comment: quit Substance Use Topics Alcohol use: Yes Alcohol/week: 5.0 standard drinks Types: 6 12 oz of beer per week Drug use: No Vaping/E-Cigarette Use Vaping/E-Cigarette Substances Vaping/E-Cigarette Devices Family History Problem [...] performed by Cristy Dobbs DO at ENDOSCOPY [facility] COLONOSCOPY, DIAGNOSTIC (RECTUM) 11/26/2015 diverticulosis, repeat 10 yrs/COLONOSCOPY FLEXIBLE PROXIMAL DIAGNOSTIC performed by Cristy Dobbs DO at ENDOSCOPY [facility] DENTAL SURGERY PROCEDURE NEC Dental Surgery Procedure DRAINAGE OF HEART SAC [address] [facility] REMOVAL OF WRIST LESION Review [...] times a day as needed for Dizziness. 30Tab 3 Azelastine HCl 0.1 % nasal spray USE 2 SPRAY(S) IN EACH NOSTRIL TWICE DAILY 90 mL 1 Alvin-3 Fatty Acids (OMEGA 3 500) 500 MG [...] ASPIRIN 81 MG PO TABS One daily OBJECTIVE/PHYSICAL EXAMINATION: BP 122/62 (BP Site: Left Arm, BP Position: Sitting, BP Cuff Size: Large) | Pulse 54 | Temp 36.1 C(97 F) | Resp 16 | Wt 112.3 kg (247 lb 9.6 oz) | BMI 37.65 kg/m | BSA 2.32 m BP Readings from Last 4 Encounters: 04/08/21 122/62 03/04/21 122/64 02/10/21 120/82 12/01/20 126/74 Wt Readings from Last 3 Encounters: 04/08/21 112.3 kg (247 lb 9.6 oz) 03/04/21 111.6 kg (246 lb 1.9 oz) 02/10/21 110.7 kg (244 lb) General: NAD. A&Ox3. Eyes: Conjunctiva are pink and non-injected, sclera clear Neck: No overt JVD. Chest: Normal respiratory effort Lungs: Clear to auscultation Cardiac Exam: RRR. No murmurs, rubs, or gallops Abdomen: Distended. Obese. +BS. Soft. Extremities: No edema Neuro: Grossly normal exam Psych: Appropriate affect and insight. DATA: Cardiac catheterization report reviewed dated March 23, 2021 at [facility], performed by Dr. Sigala: Coronary angiography: Selective [...] are stable without significant interval change. Outpatient group burner machine report reviewed dated 02/11/21: CONCLUSIONS: Preliminary Findings [...] 4. No evidence of thoracic aortic dissection EKG at [facility] - Normal sinus rhythm Incomplete right bundle branch block Cannot rule out Inferior infarct , age undetermined Abnormal ECG When compared with ECG of 26-OCT-2020 03:05, Nonspecific T wave abnormality no longer evident in Anterior leads Chest CT report reviewed dated Dec 2020: IMPRESSION Ectatic ascending thoracic aorta measuring 4 cm in diameter. No evidence for leak. EKG performed Nov 2019: Sinus bradycardia at 55 bpm Incomplete right bundle branch block When compared with prior EKG, no significant changes noted Echo report reviewed dated May 2020: Interpretation [...] aortic root sizes have increased slightly Outpatient group burner machine report reviewed dated November 2019: Duration 7 [...] measured to be 3.7 centimeters at thattime. IMPRESSION and PLAN: 60 year old male 1. Chest pain, non cardiac with normal cardiac catheterization 03/23/21 after equivocal stress testing. Symptoms suggestive of anxiety as it occurs during emotional/stressful triggers vs GI vs musculoskeletal etiology. Patient has upcoming appt with PCP and will defer further work up to PCP and other specialties. 2. Hypertension - controlled today 3. Bradycardia [...] cm - stable per recent dobutamine stress measurements. 9. Paroxysmal SVT, one episode lasting 9 seconds may be PAF, but difficult to determine. PLAN: We discussed his recent cardiac catheterization in detail. Patient continues to report intermittentatypical chest pain. Symptoms are likely noncardiac given normal cardiac catheterization. Recommendfollow-up with PCP and consider further workup in regards to GI etiology versus musculoskeletal. He does report intermittent lower extremity edema. He is on furosemide and spironolactone. I recommended he wear compression stockings while at work to aid with intermittent edema. Will repeat echo in 1 year to monitor aortic root/ascending aorta. The patient is to continue all current medications as listed above. No changes were made at today'isit. Recommend regular aerobic exercise. [place] goal would be minimum of 30 minutes done daily. Exercise can be done in divided time periods if needed. Told to avoid extremes in temperature. I spent a total of 45 minutes on the date of service in preparation, delivery, and documentation ofthe care provided to Placido Dean excluding any time spent in the performance of separately billed services. The patient agrees to the above plan and will call with additional questions or concerns. ER with all emergencies advised. Follow Up: Return in about 6 months (around 10/09/2021). Kath Carlin PA-C Department of Cardiology This chart was completed in part utilizing [email or web address] Speech Voice Recognition Software. Grammatical errors, random [...] Nursing Notes * Lynn Holland RN - 04/08/2021 2:21 PM EDT Examination Room: 6 Name: Placido Dean Date of : (1960). Reason for Visit: Follow up Interim Hospitalization(s): No Problems/Concerns: Cardiac cath performed since last evaluation. Still noting slight soreness at cath site, no swelling/ecchymosis. Chest Pain/SOB: Did have episode of chest discomfort yesterday, shortness of breath noted as well. Lasted about 20 minutes, then resolved. [facility] a way you can [...] Encounters Date Type Specialty Care Team Description 04/29/2021 Office Visit Family Medicine Farooq Rodríguez, DO [address] [place] [address] [phone] 10/14/2021 Office Visit Cardiology Kath Carlin PA-C [address] [facility] [place] [address] [phone] Health Maintenance Due Date Last Done Comments COVID-19 Vaccine (1) 1974 *DEPRESSION SCREENING,ANNUAL FOR PTS 12 AND OVER [...] Completed , 08/20/2019, 07/20/2018, Additional history exists MENINGOCOCCAL (MENACTRA/MENVEO) Aged Out No longer eligible based on patient's age to complete this topic documented as of this encounter Implants Not on filedocumented as of this encounter Visit Diagnoses Diagnosis Chest pain with normal coronary angiography- Primary Chest pain, unspecified Ascending aorta dilatation (HCC) Thoracic aortic ectasia Chronic diastolic (congestive) heart failure (HCC) Bradycardia Other specified cardiac dysrhythmias Dilated aortic root (HCC) Thoracic aortic ectasia HTN, goal below 140/90 Unspecified essential hypertension documented in this encounter Advance Directives Documents on File Type Date 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
--- OUTSIDE RECORDS SUMMARY | 2023-09-26 02:11 | External Medical Summary | Summary of Care ---
Author Name Unknown Organization [facility] Address [place] [address] Care Team Providers Care Dual Hose Cementer Name Role Phone Farooq Rodríguez DO Primary Care Provider [phone] Reason for Visit * Reason Onset Date Comments COVID-19 Screening 03/23/2021 Encounter Details Date Type Department Care Team Description 03/23/2021 Telephone COVID19 Screening [facility] [address] [place] [address] [id number], Automated Provider COVID-19 Screening Allergies No Known Active Allergiesdocumented as of this encounter (statuses as of 03/23/2021) Medications Medication Sig Dispensed Refills Start Date [...] 400 Units by mouth daily. 0 Active Alpine-3 Fatty Acids (OMEGA 3 500) 500 MG CAPS Take by mouth. 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 This is [employer] calling to let you know you have test results available. You can access this result in your [employer] account under 'Test & Lab Results'. If you are not enrolled in [employer], you can create an account by going to [email or web address]. You can also call back at [phone] or we will attempt to reach you later today. documented in this encounter Plan of Treatment Upcoming Encounters Date Type Specialty Care Team Description 04/08/2021 Office Visit Cardiology Kath Carlin PA-C [address] [facility] [place] [address] [phone] 04/29/2021 Office Visit Family Medicine Farooq Rodríguez, DO 200 [facility], [place] [address] [phone] Health Maintenance Due Date Last Done Comments [...] Documents on File Type Date Recorded Patient Inseam Trimmer Expl anation Advanced Directive Advanced Directive Advanced Directive Advanced Directive Advanced Directive Advanced Directive Advanced Directive Advanced Directive Advanced Directive Advanced Directive Advanced Directive Advanced Directive Advanced Directive Advanced Directive Advanced Directive Advanced Directive
--- OUTSIDE RECORDS SUMMARY | 2023-09-26 02:11 | External Medical Summary | Summary of Care ---
Author Name Unknown Organization [facility] Address [place] [address] Care Team Providers Care Powder Room Attendant Name Role Phone Farooq Rodríguez DO Primary Care Provider [phone] Encounter Details Date Type Department Care Team Description 03/21/2021 Nurse Only Pre Surgical Covid Testing, [place] [address] [place] [address] [facility], Pre Surgical Covid Testing [facility] [address] [place] [address] Allergies No Known Active Allergiesdocumented as of this encounter (statuses as of 03/24/2021) Medications Medication Sig Dispensed Refills Start Date [...] 400 Units by mouth daily. 0 Active Perry-3 Fatty Acids (OMEGA 3 500) 500 MG CAPS Take by mouth. 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 Copy faxed to [facility] medical laboratory technical officer. 03/22/2021 * Result Kath Mckay PA-C - 03/22/2021 8:19 AM EDT Pre cath COVID screen is negative MyG comment sent Results will need faxed * Result Kath Mckay PA-C - 03/21/2021 2:09 PM EDT Pre cath labs are normal. Stable mild anemia noted. No changes at this time. COVID screen results pending documented in this encounter Plan of Treatment Upcoming Encounters Date Type Specialty Care Team Description 04/08/2021 Office Visit Cardiology Kath Carlin PA-C [address] [place] [address] [phone] 04/29/2021 Office Visit Family Medicine Farooq Rodríguez, DO 200 [facility] [place] [address] [phone] Health Maintenance Due Date Last Done Comments [...] Procedure Name Priority Date/Time Associated Diagnosis Comments COMPREHENSIVE METABOLIC PANEL Routine 03/21/2021 7:49 AM EDT Chronic diastolic (congestive) heart failure (HCC) HTN, goal below 140/90 Chest pain, unspecified type PT INR Routine 03/21/2021 7:49 AM EDT Chronic diastolic (congestive) heart failure (HCC) HTN, goal below 140/90 Chest pain, unspecified type APTT Routine 03/21/2021 7:49 AM EDT Chronic diastolic (congestive) heart failure (HCC) HTN, goal below 140/90 Chest pain, unspecified type CBC Routine 03/21/2021 7:49 AM EDT Chronic diastolic (congestive) heart failure (HCC) HTN, goal below 140/90 Chest pain, unspecified type SARS-COV-2 (COVID-19), NAAT Routine 03/21/2021 7:40 AM EDT Chronic diastolic (congestive) heart failure (HCC) HTN, goal below 140/90 Chest pain, unspecified type documented in this encounter Results * PT INR (03/21/2021 7:49 AM EDT) Prothrombin Time 13.9 11.5 - 14.6 seconds [facility] INR 1.06 0.84 - 1.14 [facility] Specimen Blood - Venous blood specime n (specimen) Narrative Performed At Warfarin Therapy INR: 2.0-3.0 conventional anticoagulation INR: 2.5-3.5 high intensity anticoagulation [facility] Performing Organization Address City/[facility]/ZIP Co de Phone Number [facility] [address] [place] [address] * APTT (03/21/2021 7:49 AM EDT) aPTT 30 21 - 38 seconds [facility] Specimen Blood - Venous blood specime n (specimen) Narrative Performed At Anticoagulation may affect testing. Refer to [employer] Test Catalog for a list of effects. [facility] Performing Organization Address [facility]/ZIP Co de Phone Number [facility] [address] [place] [address] * CBC (03/21/2021 7:49 AM EDT) WBC 10.46 4.00 - 10.80 K/uL [facility] RBC 4.35(L) 4.50 - 5.25 M/uL [facility] HGB 13.2(L) 14.0 - 16.8 g/dL [facility] HCT 38.8(L) 40.0 - 48.4 % [facility] MCV 89.2 82.0 - 99.5 fL [facility] MCH 30.3 27.0 - 34.0 pg [facility] MCHC 34.0 32.0 - 36.0 g/dL [facility] RDW 13.2 11.5 - 15.5 % [facility] Plt 180 140 - 400 K/uL [facility] MPV 11.1 6.6 - 11.1 fL [facility] Specimen Blood - Venous blood specime n (specimen) Performing Organization Address [facility] Co de Phone Number [facility] [address] [facility] [place] [address] * COMPREHENSIVE METABOLIC PANEL (03/21/2021 7:49 AM EDT) BUN 17 6 - 20 mg/dL [facility] Creatinine 1.1 0.6 - 1.2 mg/dL [facility] Estimated Glomerular Filtration Rate 72.0Comment:If patient is , multiply estimated GFR by 1.159. >=60.0 mL/min [facility] Sodium 138 135 - 146 mmol/L [facility] Potassium 3.9 3.5 - 5.1 mmol/L [facility] Chloride 102 98 - 107 mmol/L [facility] CO2 22 22 - 32 mmol/L [facility] Anion Gap 14 7 - 15 mmol/L [facility] Glucose 93 70 - 120 mg/dL [facility] Albumin 4.5 3.8 - 5.0 g/dL [facility] AST 26 10 - 50 U/L [facility] Alkaline Phosphatase 76 35 - 130 U/L [facility] Bilirubin, Total 0.7 <=1.2 mg/dL [facility] Calcium 9.7 8.4 - 10.2 mg/dL [facility] Protein 6.8 6.0 - 8.3 g/dL [facility] ALT 43 10 - 50 U/L [facility] Specimen Blood - Venous blood specime n (specimen) Performing Organization Address [facility] Co de Phone Number [facility] [address] [facility] [place] [address] * SARS-COV-2 (COVID-19), NAAT (03/21/2021 7:40 AM EDT) SARS-CoV-2 (COVID-19) Result NegativeComment:2018 Novel Coronavirus not detected. Negative [facility] Specimen Upper Respiratory - Nasal Tu rbinate Narrative Performed At This automated test was developed and its performance characteristics determined by [employer]. It has not been cleared or approved [...] to perform high complexity clinical laboratory testing. [facility] [address] [place] [address] documented in this encounter Visit Diagnoses Diagnosis Preop testing- Primary Preoperative examination, unspecified Chronic diastolic (congestive) heart failure (HCC) HTN, goal below 140/90 Unspecified essential hypertension Chest pain, unspecified type documented in this encounter Advance Directives Documents on File Type Date Recorded Patient Soda Fountain Manager Expl anation Advanced Directive Advanced Directive Advanced Directive Advanced Directive Advanced Directive Advanced Directive Advanced Directive Advanced Directive Advanced Directive Advanced Directive Advanced Directive Advanced Directive Advanced Directive Advanced Directive Advanced Directive Advanced Directive
--- OUTSIDE RECORDS SUMMARY | 2023-09-26 02:11 | External Medical Summary | Summary of Care ---
Author Name Unknown Organization [facility] Address [place] [address] Care Team Providers Care Director Of Broadcast Name Role Phone Farooq Rodríguez DO Primary Care Provider [phone] Reason for Visit * Reason Onset Date Comments COVID-19 Screening 03/24/2021 Encounter Details Date Type Department Care Team Description 03/24/2021 Telephone COVID19 Screening [facility] [address] [place] [address] [phone], Automated Provider COVID-19 Screening Allergies No Known [...] (PROAIR HFA) 108 (90 BASE) MCG/ACT inhalerIndications:Ac [place] bay bronchitis, antibiotics not indicated Inhale 2 Puffs [...] 400 Units by mouth daily. 0 Active [place]-3 Fatty Acids (OMEGA 3 500) 500 MG CAPS Take by mouth. 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 Your COVID-19 from 03/21/2021 00:00:00 results are negative. This means you are NOT infected with coronavirus 19. If your cold/flu symptoms last longer than 7 days or get worse, contact your primary care physician. If you don't have a primary care physician, go to the nearest [facility] or urgent care clinic. To establish care with a [facility] provider, please call . Practice social distancing and good hand hygiene to keep yourself and others safe. Your results are also available for your reference in your [employer] account under 'Test & Lab Results.' If you are not enrolled in [employer], you can create an account by going to [email or web address]. You will also receive a letter in the mail with your results. If you are a [employer] staff member or employee, when you receive your result, please call [facility] [employer] between 7 a.m. and 4 p.m. at [phone]. Notify them of your test results and for instructions on returning to work after your quarantine period. Press 1 if you would like to speak with a nurse, press 2 to hear this message again. documented in this encounter Plan of Treatment Upcoming Encounters Date Type Specialty Care Team Description 04/08/2021 Office Visit Cardiology Kath Carlin PA-C [address] [place] [address] [phone] 04/29/2021 Office Visit Family Medicine Farooq Rodríguez, DO 200 [facility] [place] [address] [phone] Health Maintenance Due Date Last Done Comments [...] Documents on File Type Date Recorded Patient Supply Cataloguer Expl anation Advanced Directive Advanced Directive Advanced Directive Advanced Directive Advanced Directive Advanced Directive Advanced Directive Advanced Directive Advanced Directive Advanced Directive Advanced Directive Advanced Directive Advanced Directive Advanced Directive Advanced Directive Advanced Directive
--- OUTSIDE RECORDS SUMMARY | 2023-09-26 02:12 | External Medical Summary ---
Author Name Unknown Address Unknown Organization [facility] [place] [address] Laboratory Report Ordering Provider Test Date Status CAROLE RICE 03/21/2021 07:49:02 Final Observation Date Value Abnormality Reference (Units ) Status WBC, Total 03/21/2021 07:49:02 10.46 4.00-10.8 0 (K/uL) Final RBC 03/21/2021 07:49:02 4.35 Below low normal 4.5 0-5.25 (M/uL) Final Hemoglobin 03/21/2021 07:49:02 13.2 Below low normal 14 .0-16.8 (g/dL) Final HCT 03/21/2021 07:49:02 38.8 Below low normal 40. 0-48.4 (%) Final MCV 03/21/2021 07:49:02 89.2 82.0-99.5 (fL) Final MCH 03/21/2021 07:49:02 30.3 27.0-34.0 (pg) Final MCHC 03/21/2021 07:49:02 34.0 32.0-36.0 (g/dL) Final RDW 03/21/2021 07:49:02 13.2 11.5-15.5 (%) Final Platelets 03/21/2021 07:49:02 180 140-400 (K /uL) Final MPV 03/21/2021 07:49:02 11.1 6.6-11.1 ( fL) Final Performing Location [facility] [address] [place] [address]
--- OUTSIDE RECORDS SUMMARY | 2023-09-26 02:12 | External Medical Summary | Summary of Care ---
Author Name Unknown Organization [facility] Address [place] [address] Care Team Providers Care Under Cutting Machine Operator Name Role Phone Kelly Mitchell DO Primary Care Provider [phone] Reason for Visit * Reason Comments eRx-Medication Refill Encounter Details Date Type Department Care Team Description 03/06/2021 Refill Family Practice [facility] [address] [facility] [place] [address] Kelly Mitchell DO [address] [facility] [place] [address] [phone] Hypothyroidism; HTN, goal below 140/90 Allergies No Known Active Allergiesdocumented as of this encounter (statuses as of 03/07/2021) Medications Medication Sig Dispensed Refills Start Date [...] 400 Units by mouth daily. 0 Active [place]-3 Fatty Acids (OMEGA 3 500) 500 MG CAPS Take by mouth. 0 Active Azelastine HCl 0.1 % nasal sprayIndications:C hronic rhinitis USE 2 SPRAY(S) IN EACH NOSTRIL TWICE DAILY 90 mL 1 04/03/2019 Active meclizine (ANTIVERT) 25 MG Tablet Take 1 Tab by mouth 3 times a day as needed for Dizziness. 30 Tab 3 08/22/2019 Active atorvaSTATin (LIPITOR) 40 MG TabletIndications: CAD (coronary artery disease) Take 1 tablet by mouth once daily 90 Tab 3 04/26/2020 Active lisinopril 40 MG TabletIndications: HTN, goal [...] once daily 90 Tab 2 03/07/2021 Active levothyroxine (LEVOXYL) 75 MCG TabletIndications: Hypothyroidism TAKE 1 TABLET BY MOUTH ONCE DAILY IN THE MORNING ON EMPTY STOMACH WITH FULL GLASS OF WATER 90 Tab 3 03/01/2020 03/07/2021 Discontinued Furosemide 40 MG Oral Tablet (Lasix)Indications :HTN, goal below 140/90 Take 1 tablet by mouth once daily 90 Tab 0 11/30/2020 03/07/2021 Discontinued documented as of this encounter (statuses as of 03/07/2021) Active Problems Problem Noted Date Ascending aorta [...] as of this encounter (statuses as of 03/07/2021) Resolved Problems Problem Noted Date Resolved Date Dyslipidemia, goal LDL below 100 06/01/2014 12/08/2015 Hypoactive thyroid 01/07/2013 12/11/2016 Bronchiectasis 04/18/2003 06/12/2017 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 documented as of this encounter (statuses as of 03/07/2021) Immunizations Name Administration Dates Next Due Pneumococcal [...] Telephone Encounter - Berenice Flaherty RPh - 03/07/2021 4:03 PM EDT Signed Prescriptions: Disp Refills Euthyrox 75 MCG Oral Tablet (levothyroxine)90 Tab 2 Sig: TAKE 1 TABLET BY MOUTH ONCE DAILY IN THE MORNING ON AN EMPTY STOMACH WITH A FULL GLASS OF WATERAuthorizing Provider: KELLY MITCHELL User: BERENICE FLAHERTY Furosemide 40 MG Oral Tablet (Lasix) 90Tab 2 Sig: Take 1 tablet by mouth once dailyAuthorizing Provider: KELLY MITCHELL User: BERENICE FLAHERTY documented in this encounter Plan of Treatment Upcoming Encounters Date Type Specialty Care Team Description 03/11/2021 Imaging Cardiac Studies Gw, Business Project Analyst [address] [place] [address] [phone] 04/08/2021 Office Visit Cardiology Kath Carlin PA-C [address] [place] [address] [phone] 04/29/2021 Office Visit Family Medicine Kelly Mitchell, DO [address] [facility] [address] [phone] Health Maintenance Due Date Last Done Comments *DEPRESSION SCREENING,ANNUAL FOR PTS 12 AND OVER 07/22/2019 DIABETES SCREEN EVERY 3 YRS-AGE 45 AND ABOVE 12/22/2023 12/22/2020, 11/21/2019, 08/22/2019, Additional history exists LIPID SCREEN EVERY 5 [...] encounter Visit Diagnoses Diagnosis Hypothyroidism Unspecified hypothyroidism HTN, goal below 140/90 Unspecified essential hypertension documented in this encounter Advance Directives Documents on File Type Date Recorded Patient Tensioning Machine Operator Expl anation Advanced Directive Advanced Directive Advanced Directive Advanced Directive Advanced Directive Advanced Directive Advanced Directive Advanced Directive Advanced Directive Advanced Directive Advanced Directive Advanced Directive Advanced Directive Advanced Directive Advanced Directive
--- OUTSIDE RECORDS SUMMARY | 2023-09-26 02:12 | External Medical Summary | Summary of Care ---
Author Name Unknown Organization [place] [address] Care Team Providers Care Medical Scheduler Name Role Phone Farooq Rodríguez Primary Care Provider [phone] Reason for Referral * Precert (Within 10 days (routine)) Status Reason Specialty Diagnoses / Procedures Referred By Contact Referred To Contact Closed Precert Cardiac Studies Diagnoses Dilated aortic root (HCC) Chest pain, unspecified type HTN, goal below 140/90 Procedures ECHO, STRESS (DOBUTAMINE) W/ PHYSICIAN Kath Carlin PA-C [address] [facility] [place] [address] Electronically signed by Kath Carlin PA-C at Reason for Visit * Reason Comments Hospital Follow-Up Encounter Details Date Type Department Care Team Description 03/04/2021 Office Visit Cardiology, [facility] [address] [place] [address] Kath Carlin PA-C [address] [facility] [place] [address] [phone] Chest pain, unspecified type*; Dilated aortic root (HCC); HTN, goal below 140/90; Chronic diastolic (congestive) heart failure (HCC); Ascending aorta dilatation (HCC); SVT (supraventricular tachycardia) (HCC) Allergies No Known Active Allergiesdocumented as of this encounter (statuses as of 03/14/2021) Medications Medication Sig Dispensed Refills Start Date [...] 400 Units by mouth daily. 0 Active Eleva-3 Fatty Acids (OMEGA 3 500) 500 MG [...] THE MORNING 90 Tab 3 01/31/2021 Active levothyroxine (LEVOXYL) 75 MCG TabletIndications: Hypothyroidism TAKE 1 TABLET BY MOUTH ONCE DAILY IN THE MORNING ON EMPTY STOMACH WITH FULL GLASS OF WATER 90 Tab 3 03/01/2020 03/07/2021 Discontinued Furosemide 40 MG Oral Tablet (Lasix)Indications :HTN, goal below 140/90 Take 1 tablet by mouth once daily 90 Tab 0 11/30/2020 03/07/2021 Discontinued documented as of this encounter (statuses as of 03/14/2021) Active Problems Problem Noted Date Ascending aorta [...] as of this encounter (statuses as of 03/14/2021) Resolved Problems Problem Noted Date Resolved Date Dyslipidemia, goal LDL below 100 06/01/2014 12/08/2015 Hypoactive thyroid 01/07/2013 12/11/2016 Bronchiectasis 04/18/2003 06/12/2017 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 documented as of this encounter (statuses as of 03/14/2021) Immunizations Name Administration Dates Next Due Pneumococcal [...] Sign Reading Time Taken Comments Blood Pressure 122/64 03/04/2021 2:49 PM EDT Pulse 60 03/04/2021 2:49 PM EDT Temperature 36.1 C (96.9 F) 03/04/2021 2:49 PM ED T Respiratory Rate 18 03/04/2021 2:49 PM EDT Oxygen Saturation - - Inhaled Oxygen Concentration - - Weight 111.6 kg (246 lb 1.9 oz) 03/04/2021 2:49 PM EDT Height - - Body Mass Index 37.42 10/27/2020 1:53 PM EST documented in this encounter Progress Notes * Kath Carlin PA-C - 03/04/2021 2:58 PM EDT Cardiology F/U: History of Present Illness: Mr. Dean is a 60 year old male who presents today for routine cardiology follow-up and hospital f/u. Last clinic evaluation approx 4 months ago with the undersigned. 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 F/U echocardiograms demonstrated normal pericardium without pericardial effusion, normal EF, andno significant valvular disease with dilated aortic root measuring 4.7 cm and ascending aortic dilation measuring 4.0 cm. Other history significant for inflammatory pulmonary disease for which he follows with [place] [facility], dyslipidemia, hepatic steatosis, hypertension, obesity, and chronic diastolic HF controlled on low dose furosemide. Last month, patient presented to [facility] with complaints of intermittent chest pain. Records reviewed.Cardiac enzymes were unremarkable. EKG without acute changes. Chest CT was unremarkable. Per ER notes, symptoms correlated to possible musculoskeletal chest pain. PCP f/u was recommended. At PCP f/u, he underwent air sampling and monitoring which demonstrated paroxysmal SVT vs afib, with the longest episode lasting 9 seconds. He presents today with his with continued complaints of intermittent chest pain, described as a dull ache. Occurs with walking/exertion or when he is "emotionally stressed". Lasts 5-10 minutes. No radiation. Notes worsening dyspnea with exertional activities over the last 6 months as well. He also describes a different type of chest pain, described as sharp/stabbing pain with radiation to his left arm. This is similar to what he was seen in ER for. Sometimes this discomfort can last hours. Occurs when he is working or exerting himself. Resolves with time or rest. Notes often he gets dyspneic with these symptoms as well.. Currently in the office he is asymptomatic. Denies chest pain currently. Last episode was this weekend when working in his yard. Lasted about 10 minutes. No palpitations, dizziness, syncope or near syncope. No [...] performed by Cristy Dobbs DO at ENDOSCOPY [facility] DENTAL SURGERY PROCEDURE NEC Dental Surgery Procedure DRAINAGE OF HEART SAC 2002 [facility] REMOVAL OF WRIST LESION Review of patient's allergies indicates: No Known Allergies Current Outpatient Medications Medication Sig Dispense Refill Spironolactone 25 MG Oral Tablet (Aldactone) TAKE [...] EACH NOSTRIL TWICE DAILY 90 mL 1 Eleva-3 Fatty Acids (OMEGA 3 500) 500 MG [...] ASPIRIN 81 MG PO TABS One daily Euthyrox 75 MCG Oral Tablet (levothyroxine) TAKE 1 TABLET BY MOUTH ONCE DAILY IN THE MORNING ON AN EMPTY STOMACH WITH A FULL GLASS OF WATER 90 Tab 2 Furosemide 40 MG Oral Tablet (Lasix) Take 1 tablet by mouth once daily 90 Tab 2 OBJECTIVE/PHYSICAL EXAMINATION: BP 122/64 (BP Site: Left Arm, BP Position: Sitting, BP Cuff Size: Large) | Pulse 60 | Temp 36.1 C(96.9 F) | Resp 18 | Wt 111.6 kg (246 lb 1.9 oz) | BMI 37.42 kg/m | BSA 2.31 m BP Readings from Last 4 Encounters: 03/04/21 122/64 02/10/21 120/82 12/01/20 126/74 10/27/20 110/60 Wt Readings from Last 3 Encounters: 03/04/21 111.6 kg (246 lb 1.9 oz) 02/10/21 110.7 kg (244 lb) 12/01/20 111.5 kg (245 lb 12.8 oz) General: NAD. A&Ox3. Eyes: Conjunctiva are pink and non-injected, sclera clear Neck: No overt JVD. Chest: Normal respiratory effort Lungs: Clear to auscultation Cardiac Exam: RRR. No murmurs, rubs, or gallops Abdomen: Distended. Obese. +BS. Soft. Extremities: No edema Neuro: Grossly normal exam Psych: Appropriate affect and insight. DATA: Outpatient air sampling and monitoring report reviewed dated 02/11/21: CONCLUSIONS: Preliminary Findings [...] findings. Episodes of SVT may represent PAF [facility] records reviewed from January 2021: Chest CT report reviewed IMPRESSION: 1. No acute intrathoracic findings 2. No evidence of acute pulmonary embolism 3. No evidence of focal pulmonary consolidation 4. No evidence of thoracic aortic dissection EKG at [facility] - Normal sinus rhythm Incomplete right [...] aortic root sizes have increased slightly Outpatient air sampling and monitoring report reviewed dated November 2019: Duration 7 [...] measured to be 3.7 centimeters at thattime. Echocardiogram report reviewed, dated 11/30/16: The examination is adequate to evaluate the referral indication. The left ventricular cavity size is normal. The LV wall thickness is mildly increased (concentric). The left ventricular wall motion is normal. The qualitative LV ejection fraction is 6064% (normal). The aortic root is moderately enlarged - 4.5 cm The proximal ascending thoracic aorta is normal sized. The aortic valve has three leaflets. No pericardial effusion is noted. Echocardiogram in 2013 reviewed: There was normal sinus rhythm during the examination. The pericardium appears normal. No pericardial effusion is noted. Effusive-constrictive pericarditis is not present. The left ventricular wall motion is normal. The LV wall thickness is mildly increased (concentric). Qualitative LV ejection Fraction = 67%. No significant valvular disease is present. The left ventricular diastolic function is mildly abnormal (grade I). IMPRESSION and PLAN: 60 year old male 1. Chest pain, unspecified. recent ER visit with negative enzymes, chest CT without acute findings.EKG without acute changes 2. Hypertension - controlled today 3. Bradycardia - asymptomatic. Stable. No significant pauses or bradyarrhythmias on prior monitor. 4. History of prior cardiac tamponade /effusion S/P pericardiocentesis in 2002- No recurrence per serial echocardiograms. Stable cardiovascular signs/symptoms 5. Chronic diastolic HF with intermittent edema - stable on current diuretic regimen. 6. Dyslipidemia - controlled. 7. Obesity - continued weight loss recommended. 8. Dilated aortic root, stable at 4.7, ascending aorta measuring 4.0 cm - slight increase on Echo May 2020. 9. Paroxysmal SVT, one episode lasting 9 seconds may be PAF, but difficult to determine. PLAN: We discussed his recent and persistent chest pain in detail. Waxing and waning over several months.Occurs at rest and with exertion, concerning for anginal equivalent. Recommend proceeding with dobutamine stress echo for further evaluation. We reviewed recent monitor results in detail. Several episodes of paroxysmal SVT, for which he was asymptomatic. One episode was slightly irregular and may be underling afib, but only lasting 9 seconds, likely does not warrant anticoagulation. He has underlying bradycardia in the past and will not initiate bet a delia at this time. Further recommendations pending review of dobutamine stress echo. He is to continue current medications as listed above. No changes were made at today's visit. Weight loss encouraged. Recommend regular aerobic exercise. Slinger goal would be minimum of 30 minutes done daily. Exercise can be done in divided time periods if needed. Told to avoid extremes in temperature. I spent a total of 40 minutes on the date of service in preparation, delivery, and documentation ofthe care provided to Placido Dean excluding any time spent in the performance of separately billed services. The patient agrees to the above plan and will call with additional questions or concerns. ER with all emergencies advised. Follow-up: Return in about 1 month (around 04/03/2021). | Check-out note: Dobutamine stress echo 1 month f/u Kath Carlin PA-C Department of Cardiology This chart was completed in part utilizing [employer] Speech Voice Recognition Software. Grammatical errors, random [...] Nursing Notes * Lynn Holland RN - 03/04/2021 2:50 PM EDT Examination Room: 6 Name: Placido Dean Date of : (1960). Reason for Visit: Hospital follow up Interim Hospitalization(s): [facility]-ER Problems/Concerns: Here for evaluation based on recent ER evaluation and Zio monitor results. Chest Pain/SOB: Ongoing chest discomfort, lasts only brief time, then resolves. No increase. [facility] a way you can [...] Kath Carlin PA-C [address] [place] [address] [phone] 04/29/2021 Office Visit Family Medicine Farooq Rodríguez, DO [address] [place] [address] [phone] Health Maintenance Due Date Last Done Comments [...] Not on filedocumented as of this encounter Results * ECHO, STRESS (DOBUTAMINE) W/ PHYSICIAN (03/11/2021 10:37 AM EDT) LEFT VENTRICULAR EJECTION FRACTION 55 % [facility] Specimen [facility] documented in this encounter Visit Diagnoses Diagnosis Chest pain, unspecified type- Primary Dilated aortic root (HCC) Thoracic aortic ectasia HTN, goal below 140/90 Unspecified essential hypertension Chronic diastolic (congestive) heart failure (HCC) Ascending aorta dilatation (HCC) Thoracic aortic ectasia SVT (supraventricular tachycardia) (HCC) Other specified cardiac dysrhythmias documented in this encounter Advance Directives Documents on File Type Date Recorded Patient Trolley Car Overhauler Expl anation Advanced Directive Advanced Directive Advanced Directive Advanced Directive Advanced Directive Advanced Directive Advanced Directive Advanced Directive Advanced Directive Advanced Directive Advanced Directive Advanced Directive Advanced Directive Advanced Directive Advanced Directive
--- OUTSIDE RECORDS SUMMARY | 2023-09-26 02:12 | External Medical Summary ---
Author Name Unknown Address Unknown Organization K01:[facility] [address] [facility] [place] [address] Laboratory Report Ordering Provider Test Date Status CAROLE RICE 03/21/2021 07:40:49 Final Observation Date Value Abnormality Reference (Units ) Status SARS Coronavirus 2 03/21/2021 07:40:49 Negative N egative Final 2018 Novel Coronavirus not d etected. Performing Location [facility] - [address] [place] [address]
--- OUTSIDE RECORDS SUMMARY | 2023-09-26 02:12 | External Medical Summary | Summary of Care ---
Author Name Unknown Organization [facility] Address [place] [address] Care Team Providers Care Credit Clerk Name Role Phone AntolinFarooq roger Primary Care Provider [phone] Encounter Details Date Type Department Care Team Description 03/01/2021 Telephone Family Practice [facility] [place] [address] [place] [address] Samantha Soto PA-C [address] [facility] [place] [address] [phone] Allergies No Known Active Allergiesdocumented as of [...] 400 Units by mouth daily. 0 Active [place]-3 Fatty Acids (OMEGA 3 500) 500 MG CAPS Take by mouth. 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 Pt is scheduled 03/04/21 with Kath Carlin. * Telephone Encounter - Kath Carlin PA-C - 03/01/2021 12:11 PM EDT Scheduling - please arrange sooner cardio f/u to review ZIO results and ER f/u. * Telephone Encounter - Samantha Soto PA-C - 03/01/2021 9:15 AM EDT Would you like to see Mr. Dean sooner given his recent Zio results? This appears to be a possible new diagnosis. He was in on 02/10 for follow up from ER Chest Pain on 02/02. Preliminary Findings Patient had a min HR [...] interpretation findings. Episodes of SVT may represent PAF. documented in this encounter Plan of Treatment Upcoming Encounters Date Type Specialty Care Team Description 04/08/2021 Office Visit Cardiology Kath Carlin PA-C [address] [place] [address] [place] [address] [phone] 04/29/2021 Office Visit Family Medicine Farooq Rodríguez, DO [address] [place] [address] [phone] Health Maintenance Due Date Last Done Comments [...] Documents on File Type Date Recorded Patient Ward Clerk Expl anation Advanced Directive Advanced Directive Advanced Directive Advanced Directive Advanced Directive Advanced Directive Advanced Directive Advanced Directive Advanced Directive Advanced Directive Advanced Directive Advanced Directive Advanced Directive Advanced Directive Advanced Directive Advanced Directive
--- OUTSIDE RECORDS SUMMARY | 2023-09-26 02:12 | External Medical Summary ---
Author Name Unknown Address Unknown Organization K0G:[facility] [place] [address] - [address] [place] [address] Laboratory Report Ordering Provider Test Date Status CAROLE RICE 03/21/2021 07:49:02 Final Observation Date Value Abnormality Reference (Units ) Status BUN 03/21/2021 07:49:02 17 6-20 (mg/dL) Final Creatinine 03/21/2021 07:49:02 1.1 0.6-1.2 (mg/dL) Final Glomerular filtration rate/1.73 sq M.predicted [Volume Rate/Area] in Serum, Plasma or Blood by Creatinine-based formula (CKD-EPI) 03/21/2021 07:49:02 72.0 >=60.0 (mL/min) Final If patient is [place] an, multiply estimated GFR by 1.159. Sodium 03/21/2021 07:49:02 138 135-146 (m mol/L) Final Potassium 03/21/2021 07:49:02 3.9 3.5-5.1 (m mol/L) Final Cl 03/21/2021 07:49:02 102 98-107 (mm ol/L) Final CO2 03/21/2021 07:49:02 22 22-32 (mmo l/L) Final Anion gap 03/21/2021 07:49:02 14 7-15 (mmol /L) Final Glucose 03/21/2021 07:49:02 93 70-120 (mg /dL) Final Albumin 03/21/2021 07:49:02 4.5 3.8-5.0 (g /dL) Final AST (Aspartate aminotransferase) 03/21/2021 07:49:02 26 10-50 (U/L) Final Alk Phos 03/21/2021 07:49:02 76 35-130 (U/ L) Final Bilirubin, Total 03/21/2021 07:49:02 0.7 <=1 .2 (mg/dL) Final Calcium 03/21/2021 07:49:02 9.7 8.4-10.2 ( mg/dL) Final Protein 03/21/2021 07:49:02 6.8 6.0-8.3 (g /dL) Final ALT (Alanine aminotransferase) 03/21/2021 07:49:02 43 10-50 (U/L) Final Performing Location [facility] [place] [facility] [facility] [id number]
--- OUTSIDE RECORDS SUMMARY | 2023-09-26 02:12 | External Medical Summary ---
Author Name Unknown Address Unknown Organization K0G:[facility] [place] [address] - [address] [place] [address] Laboratory Report Ordering Provider Test Date Status CAROLE RICE 03/21/2021 07:49:02 Final Observation Date Value Abnormality Reference (Units ) Status aPTT panel - Platelet poor plasma 03/21/2021 07:49:02 30 21-38 (seconds) Final Performing Location [facility] [place] [address] [place] [id number]
--- OUTSIDE RECORDS SUMMARY | 2023-09-26 02:12 | External Medical Summary | Summary of Care ---
Author Name Unknown Organization [facility] Address [place] [address] Care Team Providers Care Signal Maintenance Technician Name Role Phone AntolinFarooq roger DO Primary Care Provider [phone] Reason for Visit * Reason Onset Date Comments Test Results 03/21/2021 Encounter Details Date Type Department Care Team Description 03/21/2021 Telephone Cardiology, [facility] [address] [place] [address] Kath Carlin PA-C [address] [place] [address] [place] [address] [phone] Test Results Allergies No Known Active Allergiesdocumented as of this encounter (statuses as of 03/21/2021) Medications Medication Sig Dispensed Refills Start Date End Date Status ASPIRIN 81 MG PO TABS One daily 0 Act natasha ZYRTEC ALLERGY 10 MG PO TABS one daily 0 Active ALBUTEROL SULFATE (2.5 MG/3ML) 0.083% IN [facility] one vial every 6 hours [...] 400 Units by mouth daily. 0 Active [place]-3 Fatty Acids (OMEGA 3 500) 500 MG CAPS Take by mouth. 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 ----- Message from Kath Carlin PA-C sent at 03/21/2021 2:09 PM EDT ----- Pre cath labs are normal. Stable mild anemia noted. No changes at this time. COVID screen results pending documented in this encounter Plan of Treatment Upcoming Encounters Date Type Specialty Care Team Description 04/08/2021 Office Visit Cardiology Kath Carlin PA-C [address] [facility] [place] [address] [phone] 04/29/2021 Office Visit Family Medicine Farooq Rodríguez, DO [address] [place] [address] [phone] Health Maintenance Due Date Last Done Comments [...] on File Type Date Recorded Patient Frame Builder Expl anation Advanced Directive Advanced Directive Advanced Directive Advanced Directive Advanced Directive Advanced Directive Advanced Directive Advanced Directive Advanced Directive Advanced Directive Advanced Directive Advanced Directive Advanced Directive Advanced Directive Advanced Directive Advanced Directive
--- OUTSIDE RECORDS SUMMARY | 2023-09-26 02:12 | External Medical Summary | Summary of Care ---
Author Name Unknown Organization [facility] [place] [address] Care Team Providers Care News Analyst Name Role Phone Farooq Rodríguez DO Primary Care Provider [phone] Reason for Visit * Reason Onset Date Comments Test Results 03/15/2021 DSE Encounter Details Date Type Department Care Team Description 03/15/2021 Telephone Cardiology, [facility] [address] [place] [address] Kath Carlin PA-C [address] [facility] [place] [address] [phone] Test Results (DSE) Allergies No Known Active Allergiesdocumented as of this encounter (statuses as of 03/16/2021) Medications Medication Sig Dispensed Refills Start Date [...] (PROAIR HFA) 108 (90 BASE) MCG/ACT inhalerIndications:Ac [place] bronchitis, antibiotics not indicated Inhale 2 Puffs [...] 400 Units by mouth daily. 0 Active [place]-3 Fatty Acids (OMEGA 3 500) 500 MG CAPS Take by mouth. 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 * Telephone Encounter - Blair Lamb LPN - 03/16/2021 11:27 AM EDT LMOM for pt to return call at [phone]. Provide pre cath instructions. Forward to scheduling for lab appts. * Telephone Encounter - Blair Lamb LPN - 03/16/2021 11:21 AM EDT L heart cath at [facility] with Dr. Sigala on Sunday 0900 03/23/2021. 0800 pt arrival time. 0900 procedure start time. Will need pre op labs & COVID test. Nothing to eat or drink after midnight. NO DO not take Furosemide or Spironolactone the morning of procedure. OK to take all other morning medications with a small sip of water. Take 4 81mg ASA OR 1 325mg ASA morning of procedure. 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 * Telephone Encounter - Blair Lamb LPN - 03/15/2021 3:11 PM EDT Pt verbalized understanding & agreeable to cath at [facility]. Will contact [facility] for cath date/time. Orders pended; can sign once date is obtained. * Telephone Encounter - Blair Lamb LPN - 03/15/2021 2:58 PM EDT ----- Message from Kath Carlin PA-C sent at 03/14/2021 4:36 PM EDT ----- Equivocal dobutamine stress echo with reproducible chest pain and EKG changes noted on stress testing Given ongoing chest pain over the last few months, recommend proceeding with diagnostic cardiac cath for further evaluation. He had recent EKG and chest xray at [facility] ER. Will need updated labs and COVID screening documented in this encounter Plan of Treatment Upcoming Encounters Date Type Specialty Care Team Description 03/21/2021 Nurse Only Ancillary Watts, Pre Surgical Covid Testing Dianne [address] [place] [address] 04/08/2021 Office Visit Cardiology Kath Carlin PA-C [address] [place] [address] [phone] 04/29/2021 Office Visit Family Medicine Farooq Rodríguez, DO [address] [address] [phone] Scheduled Orders Name Type Priority Associated Diagnoses Orde r Schedule COMPREHENSIVE METABOLIC PANEL Lab Routine Chronic diastolic (congestive) heart failure (HCC) HTN, goal below 140/90 Chest pain, unspecified type Expected: 03/18/2021 (Approximate), Expires: 03/15/2022 CBC Lab Routine Chronic diastolic (congestive) heart failure (HCC) HTN, goal below 140/90 Chest pain, unspecified type Expected: 03/18/2021 (Approximate), Expires: 03/15/2022 APTT Lab Routine Chronic diastolic (congestive) heart failure (HCC) HTN, goal below 140/90 Chest pain, unspecified type Expected: 03/18/2021 (Approximate), Expires: 03/15/2022 PT INR Lab Routine Chronic diastolic (congestive) heart failure (HCC) HTN, goal below 140/90 Chest pain, unspecified type Expected: 03/18/2021 (Approximate), Expires: 03/15/2022 CORONARY ANGIOGRAPHY W/LEFT HEART CATH Card Cath Routine Chronic diastolic (congestive) heart failure (HCC) HTN, goal below 140/90 Chest pain, unspecified type Ordered: 03/16/2021 SARS-COV-2 (COVID-19), NAAT Lab Routine Chronic diastolic (congestive) heart failure (HCC) HTN, goal below 140/90 Chest pain, unspecified type Expected: 03/18/2021 (Approximate), Expires: 03/15/2022 Health Maintenance Due Date Last Done Comments [...] of this encounter Visit Diagnoses Diagnosis Chest pain, unspecified type- Primary Chronic diastolic (congestive) heart failure (HCC) Deviated nasal septum HTN, goal below 140/90 Unspecified essential hypertension documented in this encounter Advance Directives Documents on File Type Date Recorded 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
--- OUTSIDE RECORDS SUMMARY | 2023-09-26 02:12 | External Medical Summary ---
Author Name Unknown Address Unknown Organization K0G:[facility] [address] [place] [address] Laboratory Report Ordering Provider Test Date Status CAROLE RICE 03/21/2021 07:49:02 Final Observation Date Value Abnormality Reference (Units ) Status PT 03/21/2021 07:49:02 13.9 11.5-14.6 (seconds) Final INR 03/21/2021 07:49:02 1.06 0.84-1.14 Final Performing Location [facility] [address] [place] [address]
--- OUTSIDE RECORDS SUMMARY | 2023-09-26 02:12 | External Medical Summary | Summary of Care ---
Author Name Unknown Organization [facility] Address [place] [address] Care Team Providers Care Marketing Underwriter Name Role Phone AntolinFarooq roger Primary Care Provider [phone] Reason for Visit * Reason Onset Date Comments Follow Up 03/23/2021 Encounter Details Date Type Department Care Team Description 03/23/2021 Telephone Cardiology, [facility] [address] [place] [address] Kath Carlin PA-C [address] [place] [address] [phone] Follow Up Allergies No Known Active Allergiesdocumented as of this encounter (statuses as of 03/23/2021) Medications Medication Sig Dispensed Refills Start Date End Date Status ASPIRIN 81 MG PO TABS One daily 0 Act natasha ZYRTEC ALLERGY 10 MG PO TABS one daily 0 Active ALBUTEROL SULFATE (2.5 MG/3ML) 0.083% IN [facility] one vial every 6 hours as needed 0 Active HM VITAMIN D3 2000 UNITS PO CAPSIndications:Vitam in D deficiency 1 CAPSULE DAILY 0 03/22/2014 Acti ve albuterol (PROAIR HFA) 108 (90 BASE) MCG/ACT inhalerIndications:Ac [place] bronchitis, antibiotics not indicated Inhale 2 Puffs [...] 400 Units by mouth daily. 0 Active [place]-3 Fatty Acids (OMEGA 3 500) 500 MG CAPS Take by mouth. 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 Will keep as scheduled. * Telephone Encounter - Willian Ceron RN - 03/23/2021 9:32 AM EDT Phone call from Dr Sigala from [facility]. She needs a post cath follow up with Kath in approx 2 weeks.Scheduling please arrange. 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
--- OUTSIDE RECORDS SUMMARY | 2023-09-26 02:12 | External Medical Summary | Summary of Care ---
Author Name Unknown Organization [facility] Address [place] [address] Care Team Providers Care Elevator Inspector Name Role Phone Farooq Rodríguez Primary Care Provider [phone] Reason for Visit * Reason Onset Date Comments COVID-19 Screening 03/22/2021 Encounter Details Date Type Department Care Team Description 03/22/2021 Telephone COVID19 Screening [facility] [address] [place] [id number], Automated Provider COVID-19 Screening Allergies No Known [...] 400 Units by mouth daily. 0 Active [place]-3 Fatty Acids (OMEGA 3 500) 500 MG CAPS Take by mouth. 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 This is [employer] calling to let you know you have test results available. You can access this result in your [employer] account under 'Test & Lab Results'. If you are not enrolled in [employer], you can create an account by going to [email or web address]. You can also call back at [phone] or we will attempt to reach you later today. 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
--- OUTSIDE RECORDS SUMMARY | 2023-09-26 02:13 | External Medical Summary | Summary of Care ---
Author Name Unknown Organization [place] [address] Care Team Providers Care Parts Remover Name Role Phone AntolinFarooq roger Primary Care Provider [phone] Reason for Visit * Reason Comments Emergency Department Follow-Up Encounter Details Date Type Department Care Team Description 02/10/2021 Office Visit Family Practice [facility] [address] [place] [address] Samantha Soto PA-C [address] [place] [address] [phone] Chest pain, unspecified type* Allergies No Known Active Allergiesdocumented as of this encounter (statuses as of 02/11/2021) Medications Medication Sig Dispensed Refills Start Date [...] 400 Units by mouth daily. 0 Active [place]-3 Fatty Acids (OMEGA 3 500) 500 MG CAPS Take by mouth. 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 30 Tab 3 08/22/2019 Active levothyroxine (LEVOXYL) 75 MCG TabletIndications:Hyp othyroidism TAKE 1 TABLET BY MOUTH ONCE DAILY IN THE MORNING ON EMPTY STOMACH WITH FULL GLASS OF WATER 90 Tab 3 03/01/2020 Active atorvaSTATin (LIPITOR) 40 MG TabletIndications:CAD (coronary artery disease) Take 1 tablet by mouth once daily 90 Tab 3 04/26/2020 Active lisinopril 40 MG TabletIndications:HTN , goal below 140/90 Take 1 Tab by mouth daily. 90 Tab 3 06/21/2020 Active Tamsulosin HCl 0.4 MG Oral Capsule (FLOMAX)Indications:G ross hematuria Take 0.4 mg by mouth daily. 0 Active Furosemide 40 MG Oral Tablet (Lasix)Indications:HT N, goal below 140/90 Take 1 tablet by mouth once daily 90 Tab 0 11/30/2020 Active Potassium Chloride ER 10 MEQ Oral Tablet Extended ReleaseIndications:HT N, goal below 140/90 Take 1 tablet by mouth once daily 90 Tab 1 12/21/2020 Active Spironolactone 25 MG Oral Tablet (Aldactone) TAKE 1 TABLET BY MOUTH ONCE DAILY IN THE MORNING 90 Tab 3 01/31/2021 Active documented as of this encounter (statuses as of 02/11/2021) Active Problems Problem Noted Date Ascending aorta [...] as of this encounter (statuses as of 02/11/2021) Resolved Problems Problem Noted Date Resolved Date Dyslipidemia, goal LDL below 100 06/01/2014 12/08/2015 Hypoactive thyroid 01/07/2013 12/11/2016 Bronchiectasis 04/18/2003 06/12/2017 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 02/10/2021 documented as of this encounter (statuses as of 02/11/2021) Immunizations Name Administration Dates Next Due Pneumococcal [...] Sign Reading Time Taken Comments Blood Pressure 120/82 02/10/2021 2:49 PM EDT Pulse 58 02/10/2021 2:49 PM EDT Temperature 36.6 C (97.8 F) 02/10/2021 2:49 PM ED T Respiratory Rate 18 02/10/2021 2:49 PM EDT Oxygen Saturation 98% 02/10/2021 2:49 PM EDT Inhaled Oxygen Concentration - - Weight 110.7 kg (244 lb) 02/10/2021 2:49 PM EDT Height - - Body Mass Index 37.1 10/27/2020 1:53 PM EST documented in this encounter Patient Instructions * Patient Instructions* Samantha Soto PA-C - 02/10/2021 3:14 PM EDT BMI (Body Mass Index) is the number obtained by dividing a person's weight in kilograms by his or her height in meters squared. BMI is used in determining obesity. BMI is not used to determine a person's actual percentage of body fat, but it is a good tool to scrubber machine tender weight in terms of what is healthy and unhealthy. It is used to identify adults at increased risk for developing weight related medical problems. Estimated body mass index is 37.1 kg/m as calculated from the following: Height as of 10/27/20: 1.727 m (5' 8"). Weight as of this encounter: 110.7 kg (244 lb). Obesity - BMI 35 kg/m2 to [...] message program is also available. Go to [email or web address] and seethe message under '[facility]' for more information and enrollment. Patient [...] permitted. Keep Honest, Accurate Food logs: * [email or web address] Infotek * [email or web address]ek * If you bite it - write [...] Progress Notes * Samantha Soto PA-C - 02/10/2021 2:49 PM EDT CC: ER follow up Nursing Notes: Sydney Leon, [facility] 02/10/21 1450 Signed Pt presents today for an ER follow up. States he is feeling better. HPI: Placido Dean is a 60 year old male who presents for ER follow up. Pt was seen at [facility] on 02/02 for 4.5hr hx of left side chest pain. Pt had chest ct, ekg, and cxr without acute findings. Negative troponins x2. Labs were wnl aside from ongoing mild anemia. Pain was presumed to be MSK and pt was discharged on the same day. Vital remained stable during ER visit as well. Reviewed all hospital records with patient. Copy placed in chart for EMR. Today patient reports that pain is much improved but is still present at time. He is not SOB. He has had no more episodes involving his hands feeling numb or turning colors. states that they spoke with Cardiology and they did not need to see him. They advised him to come to PCP for ER follow up. Pt does not think this could be acid reflux. Review of Systems: CONSTITUTIONAL: No generalized weakness, No fatigue, No fevers, sweats, or chills PULMONARY: No wheezing, No shortness or breath and No recent change in breathing CARDIOVASCULAR: No edema, No palpitations and No syncope GASTROINTESTINAL: No abdominal pain, No nausea, vomiting, diarrhea,, No constipation ROS: Please see HPI for pertinent positives and negatives, otherwise pt denies additional complaints. 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 COLONOSCOPY, DIAGNOSTIC (RECTUM) 11/26/2015 diverticulosis, repeat 10 yrs/COLONOSCOPY FLEXIBLE PROXIMAL DIAGNOSTIC performed by Cristy Dobbs DO at ENDOSCOPY [facility] DENTAL SURGERY PROCEDURE NEC Dental Surgery Procedure DRAINAGE OF HEART SAC 2002 [facility] REMOVAL OF WRIST LESION Social History Tobacco [...] Grandmother (Maternal) Immunization History Administered Date(s) Administered Pneumococcal Conjugate Vacc, 13 Valent (Prevnar) 08/19/2010 Pneumococcal Conjugate Vaccine, 7 Valent 10/15/2002 Pneumococcal Polysaccharide PPV23 (Pneumovax) 08/19/2010 Seasonal Influenza, Quadrivalent, No Preserve, IM 08/03/2016, 08/20/2019, 08/18/2020 Seasonal Influenza, Trivalent, with Preserve, 3yr & Above, Split 10/15/2002, 09/03/2003, 08/26/2009, 08/14/2012, 08/06/2013, 08/03/2014, 08/03/2015, [...] by mouth once daily 90 Tab 1 Furosemide 40 MG Oral Tablet (Lasix) Take 1 tablet by mouth once daily 90 Tab 0 Tamsulosin HCl 0.4 MG Oral Capsule (FLOMAX) Take 0.4 mg by mouth daily. lisinopril 40 MG Tablet Take 1 Tab by mouth daily. 90 Tab 3 atorvaSTATin (LIPITOR) 40 MG Tablet Take 1 tablet by mouth once daily 90 Tab 3 levothyroxine (LEVOXYL) 75 MCG Tablet TAKE 1 TABLET BY MOUTH ONCE DAILY IN THE MORNING ON EMPTYSTOMACH WITH FULL GLASS OF WATER 90 Tab 3 meclizine (ANTIVERT) 25 MG Tablet Take 1 Tab by mouth 3 times a day as needed for Dizziness. 30Tab 3 Azelastine HCl 0.1 % nasal spray USE 2 SPRAY(S) IN EACH NOSTRIL TWICE DAILY 90 mL 1 [place]-3 Fatty Acids (OMEGA 3 500) 500 MG [...] DAILY ALBUTEROL SULFATE (2.5 MG/3ML) 0.083% IN [facility] one vial every 6 hours as needed ZYRTEC ALLERGY 10 MG PO TABS one daily ASPIRIN 81 MG PO TABS One daily Review of patient's allergies indicates: No Known Allergies Patient's past medical, surgical, family, and social history were reviewed. Medications, allergies, immunizations, and health care maintenance screenings were also reviewed. Physical exam: BP 120/82 | Pulse 58 | Temp 36.6 C (97.8 F) (Tympanic) | Resp 18 | Wt 110.7 kg (244 lb) | SpO2 98% | BMI 37.10 kg/m | BSA 2.3 m GENERAL: alert, healthy, no distress, comfortable and cooperative EYES: EOMI, Conjunctiva are pink and non-injected, sclera clear Ears: External ears normal Neck: normal,supple,no adenopathy Respiratory: clear to auscultation,no rhonchi,no wheezes,no crackles Heart: regular rate,regular rhythm,no murmurs,no rubs,no gallops EXTREMITIES: less than 2 second capillary refill, no joint deformities, effusion, or inflammation, no skin discoloration, Full ROM, Pulses Intact, Strength equal bilaterally SKIN: skin color, texture, turgor are normal, no rashes or significant lesions Assessment/Plan: Chest pain, unspecified type (Primary) - EXTERNAL EKG 2 TO 7 DAYS Will verify that ongoing discomfort is not noted on zio patch. Patient goals for plan of care were discussed. Follow Up: Recommend re-evaluation if not improving or if symptoms worsen. Samantha Soto PA-C Family Practice [address] [address] Patient counseling on weight management given. documented in this encounter Nursing Notes * Sydney Leon CMA - 02/10/2021 2:47 PM EDT Pt presents today for an ER follow up. States he is feeling better. documented in this encounter Plan of Treatment Upcoming Encounters Date Type Specialty Care Team Description 04/29/2021 Office Visit Family Medicine Farooq Rodríguez, DO [address] [place] [address] [phone] 06/02/2021 Office Visit Cardiology Kath Carlin PA-C [address] [place] [address] [phone] Scheduled Orders Name Type Priority Associated Diagnoses Orde r Schedule EXTERNAL EKG 2 TO 7 DAYS Holter Routine Chest pain, unspecified type Ordered: 02/10/2021 Health Maintenance Due Date Last Done Comments [...] Diagnoses Diagnosis Chest pain, unspecified type- Primary documented in this encounter Advance Directives Documents on File Type Date Recorded Patient First Mate Expl anation Advanced Directive Advanced Directive Advanced Directive Advanced Directive Advanced Directive Advanced Directive Advanced Directive Advanced Directive Advanced Directive Advanced Directive Advanced Directive Advanced Directive
--- OUTSIDE RECORDS SUMMARY | 2023-09-26 02:13 | External Medical Summary | Summary of Care ---
Author Name Unknown Organization [place] [address] Care Team Providers Care Customer Experience Associate Name Role Phone AntolinFarooq roger Primary Care Provider [phone] Reason for Visit * Reason Comments Emergency Department Follow-Up Encounter Details Date Type Department Care Team Description 02/10/2021 Office Visit Family Practice [facility] [address] [facility] [place] [address] Samantha Soto PA-C [address] [facility] [place] [address] [phone] Chest pain, unspecified type* Allergies No Known Active Allergiesdocumented as of this encounter (statuses as of 02/16/2021) Medications Medication Sig Dispensed Refills Start Date [...] 400 Units by mouth daily. 0 Active [place]-3 Fatty Acids (OMEGA 3 500) 500 MG CAPS Take by mouth. 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 Patient [...] permitted. Keep Honest, Accurate Food logs: * [email or web address] Security * [email or web address] Security * If you bite it - write [...] ER follow up Nursing Notes: Sydney Leon, [facility] 02/10/21 1450 Signed Pt presents today for an ER follow up. States he is feeling better. HPI: Placido Dean is a 60 year old male who presents for ER follow up. Pt was seen at [facility] on 02/02 for 4.5hr hx of left [...] months Pericardial effusion 01/2003 idiopathic, [place] [facility] Pilonidal cyst without infection Past Surgical History: Procedure Laterality Date BRONCHOSCOPY W/ BRONCHIAL BIOPSY 2002 biopsy, open and bronchoscopy COLONOSCOPY, DIAGNOSTIC (RECTUM) 11/29/2012 COLONOSCOPY FLEXIBLE PROXIMAL DIAGNOSTIC performed by Cristy Dobbs DO at [facility] COLONOSCOPY, DIAGNOSTIC (RECTUM) 11/26/2015 diverticulosis, repeat 10 yrs/COLONOSCOPY FLEXIBLE PROXIMAL DIAGNOSTIC performed by Cristy Dobbs DO at [facility] DENTAL SURGERY PROCEDURE NEC Dental Surgery Procedure DRAINAGE OF HEART SAC 2002 [facility] REMOVAL OF WRIST LESION Social History Tobacco [...] EACH NOSTRIL TWICE DAILY 90 mL 1 Radcliffe-3 Fatty Acids (OMEGA 3 500) 500 MG [...] DAILY ALBUTEROL SULFATE (2.5 MG/3ML) 0.083% IN [place] [...] worsen. Samantha Soto PA-C Family Practice [address] [address] Patient counseling on weight management given. documented in this encounter Nursing Notes * Sydney Leon CMA - 02/10/2021 2:47 PM EDT Pt presents today for an ER follow up. States he is feeling better. documented in this encounter Plan of Treatment Upcoming Encounters Date Type Specialty Care Team Description 04/29/2021 Office Visit Family Medicine Farooq Rodríguez, DO [address] [place] [address] [phone] 06/02/2021 Office Visit Cardiology Kath Carlin PA-C [address] [place] [address] [phone] Scheduled Orders Name Type Priority Associated Diagnoses [...] Documents on File Type Date Recorded Patient Emergency Department Technician Expl anation Advanced Directive Advanced Directive Advanced Directive Advanced Directive Advanced Directive Advanced Directive Advanced Directive Advanced Directive Advanced Directive Advanced Directive Advanced Directive Advanced Directive
--- OUTSIDE RECORDS SUMMARY | 2023-09-26 02:13 | External Medical Summary | Summary of Care ---
Author Name Unknown Organization [facility] Address [place] [address] Care Team Providers Care Aircraft Lay Out Worker Name Role Phone AntolinFarooq roger Primary Care Provider [phone] Reason for Visit * Reason Onset Date Comments Appointment 02/02/2021 Encounter Details Date Type Department Care Team Description 02/02/2021 Telephone Cardiology, [facility] [address] [place] [address] Kath Carlin PA-C [address] [place] [address] [phone] Appointment Allergies No Known Active Allergiesdocumented as of this encounter (statuses as of 02/10/2021) Medications Medication Sig Dispensed Refills Start Date End Date Status ASPIRIN 81 MG PO TABS One daily 0 Act natasha ZYRTEC ALLERGY 10 MG PO TABS one daily 0 Active ALBUTEROL SULFATE (2.5 MG/3ML) 0.083% IN [facility] one vial every 6 hours [...] 400 Units by mouth daily. 0 Active [place]-3 Fatty Acids (OMEGA 3 500) 500 MG CAPS Take by mouth. 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 * Telephone Encounter - Dedra Last OSA - 02/07/2021 3:47 PM EDT Reason for patient's call: Patients returning call Caller was transferred to Eric at the nurse line. Eric advised giving patients the message below. Patients was receptive and " glad she looked at all the test. * Telephone Encounter - Kath Carlin PA-C - 02/03/2021 1:00 PM EDT ER records reviewed. Cardiac work up was unremarkable including EKG, cardiac enzymes, Chest CT for aortic pathology. Symptoms were felt to be musculoskeletal in nature. I agree with PCP f/u initially if symptoms persist. If symptoms change/worsen, and additional cardiac concerns, will see sooner. * Telephone Encounter - Blair Lamb LPN - 02/02/2021 4:29 PM EDT Review of discharge summary, recommends PCP f/u for chest pain reproducible with palpitation. * Telephone Encounter - Jenny Dickson OSA - 02/02/2021 4:19 PM EDT Pt was in the ED today with Chest Pain/SO[facility] at [facility]. Pt was instructed to make an appt with Kath Carlin PA-C for f/u. Please advise. documented in this encounter Plan of Treatment Upcoming Encounters Date Type Specialty Care Team Description 04/29/2021 Office Visit Family Medicine Farooq Rodríguez, DO [address] [place], [place] [address] [phone] 06/02/2021 Office Visit Cardiology Kath Carlin PA-C [address] [facility] [place] [address] [phone] Health Maintenance Due Date Last Done Comments [...] Documents on File Type Date Recorded Patient Secretarial Teacher Expl anation Advanced Directive Advanced Directive Advanced Directive Advanced Directive Advanced Directive Advanced Directive Advanced Directive Advanced Directive Advanced Directive Advanced Directive Advanced Directive Advanced Directive
--- OUTSIDE RECORDS SUMMARY | 2023-09-26 02:14 | External Medical Summary | Summary of Care ---
Author Name Unknown Organization [facility] Address [place] [address] Care Team Providers Care Agriculture Department Chair Name Role Phone AntolinFarooq roger Primary Care Provider [phone] Reason for Visit * Reason Onset Date Comments Appointment 02/02/2021 Encounter Details Date Type Department Care Team Description 02/02/2021 Telephone Cardiology, [facility] [address] [place] [address] Kath Carlin PA-C [address] [place] [address] [phone] Appointment Allergies No Known Active Allergiesdocumented as of this encounter (statuses as of 02/07/2021) Medications Medication Sig Dispensed Refills Start Date End Date Status ASPIRIN 81 MG PO TABS One daily 0 Act natasha ZYRTEC ALLERGY 10 MG PO TABS one daily 0 Active ALBUTEROL SULFATE (2.5 MG/3ML) 0.083% IN [facility] one vial every 6 hours as [...] 400 Units by mouth daily. 0 Active [place]-3 Fatty Acids (OMEGA 3 500) 500 MG CAPS Take by mouth. 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 Pt was instructed to make an appt with Kath Carlin PA-C for f/u. Please advise. documented in this encounter Plan of Treatment Upcoming Encounters Date Type Specialty Care Team Description 04/29/2021 Office Visit Family Medicine Farooq Rodríguez, DO [address] [facility] [place] [address] [phone] 06/02/2021 Office Visit Cardiology Kath Carlin PA-C [address] [place] [address] [phone] Health Maintenance Due Date Last Done Comments [...] Documents on File Type Date Recorded Patient Hearing Aid Assembly Supervisor Expl anation Advanced Directive Advanced Directive Advanced Directive Advanced Directive Advanced Directive Advanced Directive Advanced Directive Advanced Directive Advanced Directive Advanced Directive Advanced Directive
--- OUTSIDE RECORDS SUMMARY | 2023-09-26 02:14 | External Medical Summary | Summary of Care ---
Author Name Unknown Organization [place] [address] Care Team Providers Care Clothespin Drier Operator Name Role Phone Kelly Mitchell Primary Care Provider [phone] Reason for Visit * Reason Comments eRx-Medication Refill Encounter Details Date Type Department Care Team Description 01/30/2021 Refill Family Practice [facility] [address] [facility] [place] [address] Fabian Du III, MD [address] [place] [address] [phone] Allergies No Known Active Allergiesdocumented as of this encounter (statuses as of 01/31/2021) Medications Medication Sig Dispensed Refills Start Date End Date Status ASPIRIN 81 MG PO TABS One daily 0 Active ZYRTEC ALLERGY 10 MG PO TABS one daily 0 Active ALBUTEROL SULFATE (2.5 MG/3ML) 0.083% IN [facility] one vial every 6 hours [...] 400 Units by mouth daily. 0 Active [place]-3 Fatty Acids (OMEGA 3 500) 500 MG CAPS Take by mouth. 0 Active Azelastine HCl 0.1 % nasal sprayIndications:C hronic rhinitis USE 2 SPRAY(S) IN EACH NOSTRIL TWICE DAILY 90 mL 1 04/03/2019 Active meclizine (ANTIVERT) 25 MG Tablet Take 1 Tab by mouth 3 times a day as needed for Dizziness. 30 Tab 3 08/22/2019 Active levothyroxine (LEVOXYL) 75 MCG TabletIndications: Hypothyroidism TAKE 1 TABLET BY MOUTH ONCE DAILY IN THE MORNING ON EMPTY STOMACH WITH FULL GLASS OF WATER 90 Tab 3 03/01/2020 Active atorvaSTATin (LIPITOR) 40 MG TabletIndications: CAD (coronary artery disease) Take 1 tablet by mouth once daily 90 Tab 3 04/26/2020 Active lisinopril 40 MG TabletIndications: HTN, goal below 140/90 Take 1 Tab by mouth daily. 90 Tab 3 06/21/2020 Active Tamsulosin HCl 0.4 MG Oral Capsule (FLOMAX)Indication s:Gross hematuria Take 0.4 mg by mouth daily. 0 Active Furosemide 40 MG Oral Tablet (Lasix)Indications [...] THE MORNING 90 Tab 3 01/31/2021 Active spironolactone (ALDACTONE) 25 MG Tablet TAKE 1 TABLET BY MOUTH ONCE DAILY IN THE MORNING 90 Tab 3 02/02/2020 01/31/2021 Discontinued documented as of this encounter (statuses as of 01/31/2021) Active Problems Problem Noted Date Ascending aorta [...] as of this encounter (statuses as of 01/31/2021) Resolved Problems Problem Noted Date Resolved Date Dyslipidemia, goal LDL below 100 06/01/2014 12/08/2015 Hypoactive thyroid 01/07/2013 12/11/2016 Bronchiectasis 04/18/2003 06/12/2017 documented as of this encounter (statuses as of 01/31/2021) Immunizations Name Administration Dates Next Due Pneumococcal [...] Notes * Telephone Encounter - Arlen Salvador RP - 01/31/2021 9:20 AM EDT Signed Prescriptions: Disp Refills Spironolactone 25 MG Oral Tablet ([place]*90 Tab 3 Sig: TAKE 1 TABLET BY MOUTH ONCE DAILY IN THE MORNINGAuthorizing Provider: KELLY MITCHELL User: ARLEN SALVADOR documented in this encounter Plan of Treatment Upcoming Encounters Date Type Specialty Care Team Description 04/29/2021 Office Visit Family Medicine Kelly Mitchell, DO [address] [place] [address] [phone] 06/02/2021 Office Visit [facility] [address] Health Maintenance Due Date Last Done [...] Documents on File Type Date Recorded Patient Carton Making Machine Operator Expl anation Advanced Directive Advanced Directive Advanced Directive Advanced Directive Advanced Directive Advanced Directive Advanced Directive Advanced Directive Advanced Directive Advanced Directive Advanced Directive
--- OUTSIDE RECORDS SUMMARY | 2023-09-26 02:14 | External Medical Summary | Summary of Care ---
Author Name Unknown Organization [facility] Address [place] [address] Care Team Providers Care Certified Performance Technologist Name Role Phone Farooq Rodríguez DO Primary Care Provider [phone] Reason for Visit * Reason Onset Date Comments Advice 02/07/2021 Encounter Details Date Type Department Care Team Description 02/07/2021 Telephone Family Practice [facility] [address] [facility] [place] [address] Farooq Rodríguez DO [address] [facility] [place] [address] [phone] Advice Allergies No Known Active Allergiesdocumented as of this encounter (statuses as of 02/08/2021) Medications Medication Sig Dispensed Refills Start Date [...] 400 Units by mouth daily. 0 Active [place]-3 Fatty Acids (OMEGA 3 500) 500 MG CAPS Take by mouth. 0 Active Azelastine HCl 0.1 % nasal sprayIndications:Bark Peeler alison rhinitis USE 2 SPRAY(S) IN EACH [...] as of this encounter (statuses as of 02/08/2021) Active Problems Problem Noted Date Ascending aorta [...] as of this encounter (statuses as of 02/08/2021) Resolved Problems Problem Noted Date Resolved Date Dyslipidemia, goal LDL below 100 06/01/2014 12/08/2015 Hypoactive thyroid 01/07/2013 12/11/2016 Bronchiectasis 04/18/2003 06/12/2017 documented as of this encounter (statuses as of 02/08/2021) Immunizations Name Administration Dates Next Due Pneumococcal [...] Telephone Encounter - Christen Salmon OSA - 02/08/2021 2:54 PM EDT ER follow-up scheduled for 02/10/2021 with Samantha Soto. * Telephone Encounter - Dot Ramirez RN - 02/07/2021 4:50 PM EDT Please offer pt an ER follow up. * Telephone Encounter - Dedra Last OSA - 02/07/2021 3:56 PM EDT Patients calling concerning patient emergency room visit on 02/02/2021 for chest pain and shortness of breath. Per encounter from Cardiology patient was advised to follow up with his PCP. No appointment is showing with patients PCP until 03/2021 for an emergency room follow up. Patients denies patient having any current issues. Please advise patients at [phone] documented in this encounter Plan of Treatment Upcoming Encounters Date Type Specialty Care Team Description 02/10/2021 Office Visit Family Medicine Samantha Soto PA-C [address] [place] [address] [phone] 04/29/2021 Office Visit Family Medicine Farooq Rodríguez DO [address] [place] [address] [phone] 06/02/2021 Office Visit Cardiology Kath Carlin PA-C [address] [place] [address] [phone] Health Maintenance Due Date Last Done Comments [...] Documents on File Type Date Recorded Patient Electronic Prepress Operator Expl anation Advanced Directive Advanced Directive Advanced Directive Advanced Directive Advanced Directive Advanced Directive Advanced Directive Advanced Directive Advanced Directive Advanced Directive Advanced Directive Advanced Directive
--- OUTSIDE RECORDS SUMMARY | 2023-09-26 02:14 | External Medical Summary | Summary of Care ---
Author Name Unknown Organization [facility] Address [place] [address] Care Team Providers Care Near East Archeology Professor Name Role Phone Farooq Rodríguez DO Primary Care Provider [phone] Encounter Details Date Type Department Care Team Description 01/06/2021 Scan Encounter Unspecified Department <No scans attached> Allergies No Known Active Allergiesdocumented as of this encounter (statuses as of 01/07/2021) Medications Medication Sig Dispensed Refills Start Date [...] (PROAIR HFA) 108 (90 BASE) MCG/ACT inhalerIndications:Ac miami bronchitis, antibiotics not indicated Inhale 2 Puffs [...] 400 Units by mouth daily. 0 Active [place]-3 Fatty Acids (OMEGA 3 500) 500 MG CAPS Take by mouth. 0 Active Azelastine HCl 0.1 % nasal sprayIndications:Coagulator alison rhinitis USE 2 SPRAY(S) IN EACH NOSTRIL TWICE DAILY 90 mL 1 04/03/2019 Active meclizine (ANTIVERT) 25 MG Tablet Take 1 Tab by mouth 3 times a day as needed for Dizziness. 30 Tab 3 08/22/2019 Active spironolactone (ALDACTONE) 25 MG Tablet TAKE 1 TABLET BY MOUTH ONCE DAILY IN THE MORNING 90 Tab 3 02/02/2020 Active levothyroxine (LEVOXYL) 75 MCG TabletIndications:Hyp othyroidism [...] once daily 90 Tab 1 12/21/2020 Active documented as of this encounter (statuses as of 01/07/2021) Active Problems Problem Noted Date Ascending aorta [...] as of this encounter (statuses as of 01/07/2021) Resolved Problems Problem Noted Date Resolved Date Dyslipidemia, goal LDL below 100 06/01/2014 12/08/2015 Hypoactive thyroid 01/07/2013 12/11/2016 Bronchiectasis 04/18/2003 06/12/2017 documented as of this encounter (statuses as of 01/07/2021) Immunizations Name Administration Dates Next Due Pneumococcal [...] Medicine Farooq Rodríguez, DO [address] [place] [address] [phone] 06/02/2021 Office Visit Cardiology Kath Carlin PA-C [address] [place] [address] [phone] Health Maintenance Due Date Last Done Comments [...] Documents on File Type Date Recorded Patient Bitumen Plant Operator Expl anation Advanced Directive Advanced Directive Advanced Directive Advanced Directive Advanced Directive Advanced Directive Advanced Directive Advanced Directive Advanced Directive Advanced Directive Advanced Directive
--- OUTSIDE RECORDS SUMMARY | 2023-09-26 02:14 | External Medical Summary | Summary of Care ---
Author Name Unknown Organization [facility] Address [place] [address] Care Team Providers Care Java Enterprise Architect Name Role Phone Farooq Rodríguez DO Primary Care Provider [phone] Encounter Details Date Type Department Care Team Description 01/14/2021 Scan Encounter Unspecified Department <No scans attached> Allergies No Known Active Allergiesdocumented as of this encounter (statuses as of 01/17/2021) Medications Medication Sig Dispensed Refills Start Date [...] 400 Units by mouth daily. 0 Active [place]-3 Fatty Acids (OMEGA 3 500) 500 MG CAPS Take by mouth. 0 Active Azelastine HCl 0.1 % nasal sprayIndications:Wet Wash Assembler alison rhinitis USE 2 SPRAY(S) IN EACH [...] as of this encounter (statuses as of 01/17/2021) Active Problems Problem Noted Date Ascending aorta [...] as of this encounter (statuses as of 01/17/2021) Resolved Problems Problem Noted Date Resolved Date Dyslipidemia, goal LDL below 100 06/01/2014 12/08/2015 Hypoactive thyroid 01/07/2013 12/11/2016 Bronchiectasis 04/18/2003 06/12/2017 documented as of this encounter (statuses as of 01/17/2021) Immunizations Name Administration Dates Next Due Pneumococcal [...] Medicine Farooq Rodríguez, DO [address] [place] [address] [phone] 06/02/2021 Office Visit Cardiology Kath Carlin PA-C [address] [place] [address] [phone] Health Maintenance Due Date Last Done Comments [...] on File Type Date Recorded Patient Director Athletic Expl anation Advanced Directive Advanced Directive Advanced Directive Advanced Directive Advanced Directive Advanced Directive Advanced Directive Advanced Directive Advanced Directive Advanced Directive Advanced Directive
--- OUTSIDE RECORDS SUMMARY | 2023-09-26 02:14 | External Medical Summary | Summary of Care ---
Author Name Unknown Organization [facility] Address [place] [address] Care Team Providers Care Timber Rider Name Role Phone Farooq Rodríguez DO Primary Care Provider [phone] Encounter Details Date Type Department Care Team Description 02/02/2021 Scan Encounter Unspecified Department <No scans attached> Allergies No Known Active Allergiesdocumented as of this encounter (statuses as of 02/03/2021) Medications Medication Sig Dispensed Refills Start Date [...] 400 Units by mouth daily. 0 Active [place]-3 Fatty Acids (OMEGA 3 500) 500 MG CAPS Take by mouth. 0 Active Azelastine HCl 0.1 % nasal sprayIndications:Real Estate Asset Manager alison rhinitis USE 2 SPRAY(S) IN EACH [...] as of this encounter (statuses as of 02/03/2021) Active Problems Problem Noted Date Ascending aorta [...] as of this encounter (statuses as of 02/03/2021) Resolved Problems Problem Noted Date Resolved Date Dyslipidemia, goal LDL below 100 06/01/2014 12/08/2015 Hypoactive thyroid 01/07/2013 12/11/2016 Bronchiectasis 04/18/2003 06/12/2017 documented as of this encounter (statuses as of 02/03/2021) Immunizations Name Administration Dates Next Due Pneumococcal [...] Family Medicine Farooq Rodríguez, DO [address] [place], [place] [address] [phone] 06/02/2021 Office Visit Cardiology Kath Carlin PA-C [address] [place] [address] [phone] Health Maintenance Due Date Last Done Comments [...] Documents on File Type Date Recorded Patient Bucket Hooker Expl anation Advanced Directive Advanced Directive Advanced Directive Advanced Directive Advanced Directive Advanced Directive Advanced Directive Advanced Directive Advanced Directive Advanced Directive Advanced Directive
--- OUTSIDE RECORDS SUMMARY | 2023-09-26 02:15 | External Medical Summary ---
Author Name Unknown Address Unknown Organization [id number]:[facility] [place] [address] [facility] [facility] [place] [address] Laboratory Report Ordering Provider Test Date Status CAROLE RICE 12/22/2020 12:12:03 Final Observation Date Value Abnormality Reference (Units ) Status Triglyceride 12/22/2020 12:12:03 65 <=174 ( mg/dL) Final Triglyceride Reference Range s (mg/dL):
<150 Acceptable
150-174 Borderline high
175-499 High
>=500 Very high Cholesterol 12/22/2020 12:12:03 136 <200 (mg /dL) Final Total Cholesterol Reference Ranges (mg/dL):
<200 Desirable
200-239 Borderline high
>=240 High HDL 12/22/2020 12:12:03 42 >39 (mg/dL ) Final HDL Cholesterol Reference Ra nges (mg/dL):
>=60 High (Desirable)
<50 Low (Undesirable) For Females
<40 Low (Undesirable) For Males NON-HDL CHOLESTEROL 12/22/2020 12:12:03 94 <=159 (mg/dL) Final Non-HDL Cholesterol Referenc e Range (mg/dL):
<100 Target level for high risk ASCVD patient
<130 Optimal for general population
130-159 Near optimal for general population
160-189 Borderline High
190-219 High
>=220 Very High LDL, (calculated) 12/22/2020 12:12:03 81 <= 129 (mg/dL) Final LDL Cholesterol Reference Ra nges (mg/dL):
<70 Target level for high risk ASCVD patient
<100 Optimal for general population
100-129 Near optimal for general population
130-159 Borderline high
160-189 High
>=190 Very high Performing Location [facility] [place] [address] [facility] [address]
--- OUTSIDE RECORDS SUMMARY | 2023-09-26 02:15 | External Medical Summary ---
Author Name Unknown Address Unknown Organization [id number]:LABORATORY [facility] [place] - [address] [place] [address] Laboratory Report Ordering Provider Test Date Status CAROLE RICE 12/22/2020 12:12:03 Final Observation Date Value Abnormality Reference (Units ) Status TSH 12/22/2020 12:12:03 4.74 Above high normal 0. 27-4.20 (uIU/mL) Final Performing Location LABORATORY [facility] [place] - [address] [place] [address]
--- OUTSIDE RECORDS SUMMARY | 2023-09-26 02:15 | External Medical Summary | Summary of Care ---
Author Name Unknown Organization [facility] Address [facility] [place] [address] Care Team Providers Care Software Tools Build Engineer Name Role Phone Kelly Mitchell DO Primary Care Provider [phone] Reason for Visit * Reason Comments eRx-Medication Refill Encounter Details Date Type Department Care Team Description 12/19/2020 Refill Family Practice [facility] [address] [facility] [place] [address] Kelly Mitchell DO [address] [facility] [place] [address] [phone] HTN, goal below 140/90 Allergies No Known Active Allergiesdocumented as of this encounter (statuses as of 12/22/2020) Medications Medication Sig Dispensed Refills Start Date [...] 400 Units by mouth daily. 0 Active [place]-3 Fatty Acids (OMEGA 3 500) 500 [...] 3 02/02/2020 Active levothyroxine (LEVOXYL) 75 MCG TabletIndications: Hypothyroidism [...] once daily 90 Tab 1 12/21/2020 Active Potassium Chloride ER 10 MEQ Oral Tablet Extended ReleaseIndications :HTN, goal below 140/90 Take 1 tablet by mouth once daily 90 Tab 0 09/20/2020 12/21/2020 Discontinued documented as of this encounter (statuses as of 12/22/2020) Active Problems Problem Noted Date Ascending aorta [...] as of this encounter (statuses as of 12/22/2020) Resolved Problems Problem Noted Date Resolved Date Dyslipidemia, goal LDL below 100 06/01/2014 12/08/2015 Hypoactive thyroid 01/07/2013 12/11/2016 Bronchiectasis 04/18/2003 06/12/2017 documented as of this encounter (statuses as of 12/22/2020) Immunizations Name Administration Dates Next Due Pneumococcal [...] encounter Miscellaneous Notes * Telephone Encounter - Mady Mchugh CPhT - 12/22/2020 9:06 AM EST Received message from [facility] regarding patient needing labs. Placed call to patient to advise. Sent MyG message Thank you, Mady Mchugh [facility] Senior Capital Markets Specialist [employer] 12/22/2020, 9:06 AM * Telephone Encounter - Nadeem Page [facility] - 12/21/2020 7:39 AM EST Signed Prescriptions: Disp Refills Potassium Chloride ER 10 MEQ Oral Tablet E*90 Tab 1 Sig: Take 1 tablet by mouth once dailyAuthorizing Provider: KELLY MITCHELL User: NADEEM RETANA--- * Telephone Encounter - Nadeem Page [facility] - 12/21/2020 7:38 AM EST Provided 90 days supply with 1 refill(s) until upcoming appointment. Per refill protocol patient should have CMP on file within past year. Lab work ordered (AMP report and protocol medications checked). Please contact patient to advise of labs. Fasting is not required. Advise to obtain labs before hisscheduled office visit. Thank You, Nadeem Retana [facility] Staff Pharmacist Pharmacy Refill Call Center 12/21/2020, 7:38 AM * Telephone Encounter - Nadeem Page [facility] - 12/21/2020 7:38 AM EST Pending Prescriptions: Disp Refills Potassium Chloride ER 10 MEQ Oral Tablet *90 Tab 0 Sig: Take 1 tablet by mouth once daily Last Office/Telemedicine Visit: 10/27/2020 Next Office Visit: 04/29/2021 Scheduled Provider(s): Kelly Mitchell DO If no future appointments scheduled, and last appointment is greater than a year ago, please schedule patient for a follow-up appointment Last date the medication was ordered: 09/20/20 Pharmacy: [facility] [address] [address] [place] Is this request for a controlled substance?No Urine Drug Screen:No results found for this or any previous visit. Patient Phone Numbers Labs: Lab Results Component Value Date/Time CREAT 1.1 11/21/2019 09:45 AM POTASSIUM 4.3 11/21/2019 09:45 AM TSH 3.60 11/21/2019 09:45 AM LDLCALC 78 02/24/2020 07:57 AM LDLDIRECT NOT APPLICABLE 02/24/2020 07:57 AM LDLDIRECT 136 (H) 05/12/2011 02:10 PM ALT 33 11/21/2019 09:45 AM documented in this encounter Plan of Treatment Upcoming Encounters Date Type Specialty Care Team Description 12/22/2020 Imaging Radiology 04/29/2021 Office Visit Family Medicine Kelly Mitchell DO [address] [place] [address] [phone] 06/02/2021 Office Visit Cardiology Kath Carlin PA-C [address] [facility] [place] [address] [phone] Health Maintenance Due Date Last Done Comments *DEPRESSION SCREENING,ANNUAL FOR PTS 12 AND OVER 07/22/2019 *BASIC METABOLIC PANEL (BMP) FOR HTN YEARLY 11/25/2020 *TSH FOR THYROID MEDICATION MONITORING YEARLY 11/25/2020 DIABETES SCREEN EVERY 3 YRS-AGE 45 AND ABOVE 11/21/2022 11/21/2019, 08/22/2019, 11/21/2018, Additional history exists LIPID SCREEN EVERY 5 YRS-MEN AGE 35-75 02/23/2025 02/24/2020, 01/14/2019, 11/21/2018, Additional history exists DTaP,Tdap,and Td Vaccines (3 [...] Documents on File Type Date Recorded Patient Ediscovery Project Manager Expl anation Advanced Directive Advanced Directive Advanced Directive Advanced Directive Advanced Directive Advanced Directive Advanced Directive Advanced Directive Advanced Directive Advanced Directive
--- OUTSIDE RECORDS SUMMARY | 2023-09-26 02:15 | External Medical Summary | Summary of Care ---
Author Name Unknown Organization [facility] Address [place] [address] Care Team Providers Care Occupational Safety Specialist Name Role Phone Kelly Mitchell DO Primary Care Provider [phone] Reason for Visit * Reason Comments eRx-Medication Refill Encounter Details Date Type Department Care Team Description 12/19/2020 Refill Family Practice [facility] [address] [facility] [place] [address] Kelly Mitchell DO [address] [facility] [place] [address] [phone] HTN, goal below 140/90 Allergies No Known Active Allergiesdocumented as of this encounter (statuses as of 12/21/2020) Medications Medication Sig Dispensed Refills Start Date End Date Status ASPIRIN 81 MG PO TABS One daily 0 Active ZYRTEC ALLERGY 10 MG PO TABS one daily 0 Active ALBUTEROL SULFATE (2.5 MG/3ML) 0.083% IN [facility] one vial every 6 hours as [...] 400 Units by mouth daily. 0 Active [place]-3 Fatty Acids (OMEGA 3 500) 500 MG [...] as of this encounter (statuses as of 12/21/2020) Active Problems Problem Noted Date Ascending aorta [...] as of this encounter (statuses as of 12/21/2020) Resolved Problems Problem Noted Date Resolved Date Dyslipidemia, goal LDL below 100 06/01/2014 12/08/2015 Hypoactive thyroid 01/07/2013 12/11/2016 Bronchiectasis 04/18/2003 06/12/2017 documented as of this encounter (statuses as of 12/21/2020) Immunizations Name Administration Dates Next Due Pneumococcal [...] encounter Miscellaneous Notes * Telephone Encounter - Nadeem Page [facility] - 12/21/2020 7:39 AM EST Signed Prescriptions: Disp Refills Potassium Chloride ER 10 MEQ Oral Tablet E*90 Tab 1 Sig: Take 1 tablet by mouth once dailyAuthorizing Provider: KELLY MITCHELL User: NADEEM RETANA--- * Telephone Encounter - Nadeem Page [facility] - 12/21/2020 7:38 AM EST Provided 90 days supply with 1 refill(s) until upcoming appointment. Per refill protocol patient should have CMP on file within past year. Lab work ordered (AMP report and protocol medications checked). Please contact patient to advise of labs. Fasting is not required. Advise to obtain labs before hisscheduled office visit. Thank You, Nadeem Retana [facility] Staff Pharmacist Pharmacy Refill Call Center 12/21/2020, 7:38 AM * Telephone Encounter - Nadeem Page [facility] - 12/21/2020 7:38 AM EST [...] was ordered: 09/20/20 Pharmacy: [facility] [address] [place] Is this request for a controlled [...] Radiology 04/29/2021 Office Visit Family Medicine Kelly Mitchell, DO [address] [place] [address] [phone] 06/02/2021 Office Visit Cardiology Kath Carlin PA-C [address] [facility] [place] [address] [phone] Health Maintenance Due Date Last Done Comments [...] on File Type Date Recorded Patient Director Global Strategic Publisher Sales Expl anation Advanced Directive Advanced Directive Advanced Directive Advanced Directive Advanced Directive Advanced Directive Advanced Directive Advanced Directive Advanced Directive Advanced Directive
--- OUTSIDE RECORDS SUMMARY | 2023-09-26 02:15 | External Medical Summary | Summary of Care ---
Author Name Unknown Organization [facility] Address [place] [address] Care Team Providers Care Folder Taper Operator Name Role Phone Farooq Rodríguez DO Primary Care Provider [phone] Encounter Details Date Type Department Care Team Description 12/23/2020 Scan Encounter Unspecified Department <No scans attached> Allergies No Known Active Allergiesdocumented as of this encounter (statuses as of 12/24/2020) Medications Medication Sig Dispensed Refills Start Date [...] (PROAIR HFA) 108 (90 BASE) MCG/ACT inhalerIndications:Ac [place] bronchitis, antibiotics not indicated Inhale 2 Puffs [...] Units by mouth daily. 0 Active [place]-3 Fatty Acids (OMEGA 3 500) 500 MG CAPS Take by mouth. 0 Active Azelastine HCl 0.1 % nasal sprayIndications:Salon Manager alison rhinitis USE 2 SPRAY(S) IN [...] as of this encounter (statuses as of 12/24/2020) Active Problems Problem Noted Date Ascending aorta [...] as of this encounter (statuses as of 12/24/2020) Resolved Problems Problem Noted Date Resolved Date Dyslipidemia, goal LDL below 100 06/01/2014 12/08/2015 Hypoactive thyroid 01/07/2013 12/11/2016 Bronchiectasis 04/18/2003 06/12/2017 documented as of this encounter (statuses as of 12/24/2020) Immunizations Name Administration Dates Next Due Pneumococcal [...] Medicine Farooq Rodríguez, DO [address] [place] [address] [phone] 06/02/2021 Office Visit Cardiology Kath Carlin PA-C [address] [place] [address] [phone] Health Maintenance Due Date Last Done Comments [...] Documents on File Type Date Recorded Patient Repair Order Clerk Expl anation Advanced Directive Advanced Directive Advanced Directive Advanced Directive Advanced Directive Advanced Directive Advanced Directive Advanced Directive Advanced Directive Advanced Directive Advanced Directive
--- OUTSIDE RECORDS SUMMARY | 2023-09-26 02:15 | External Medical Summary ---
Author Name Unknown Address Unknown Organization K0G:LABORATORY [place] [address] - [address] [place] [address] Laboratory Report Ordering Provider Test Date Status CAROLE RICE 12/22/2020 12:12:05 Final Observation Date Value Abnormality Reference (Units ) Status BUN 12/22/2020 12:12:05 13 6-20 (mg/dL) Final Creatinine 12/22/2020 12:12:05 1.1 0.6-1.2 (mg/dL) Final Glomerular filtration rate/1.73 sq M.predicted [Volume Rate/Area] in Serum, Plasma or Blood by Creatinine-based formula (CKD-EPI) 12/22/2020 12:12:05 72.0 >=60.0 (mL/min) Final If patient is [place] an, multiply estimated GFR by 1.159. Sodium 12/22/2020 12:12:05 140 135-146 (m mol/L) Final Potassium 12/22/2020 12:12:05 3.8 3.5-5.1 (m mol/L) Final Cl 12/22/2020 12:12:05 104 98-107 (mm ol/L) Final CO2 12/22/2020 12:12:05 26 22-32 (mmo l/L) Final Anion gap 12/22/2020 12:12:05 10 7-15 (mmol /L) Final Glucose 12/22/2020 12:12:05 93 70-120 (mg /dL) Final Albumin 12/22/2020 12:12:05 4.4 3.8-5.0 (g /dL) Final AST (Aspartate aminotransferase) 12/22/2020 12:12:05 27 10-50 (U/L) Final Alk Phos 12/22/2020 12:12:05 70 35-130 (U/ L) Final Bilirubin, Total 12/22/2020 12:12:05 0.8 <=1 .2 (mg/dL) Final Calcium 12/22/2020 12:12:05 9.4 8.4-10.2 ( mg/dL) Final Protein 12/22/2020 12:12:05 6.6 6.0-8.3 (g /dL) Final ALT (Alanine aminotransferase) 12/22/2020 12:12:05 32 10-50 (U/L) Final Performing Location LABORATORY [place] [address] - [address] [facility] [address]
--- OUTSIDE RECORDS SUMMARY | 2023-09-26 02:15 | External Medical Summary | Summary of Care ---
Author Name Unknown Organization [facility] Address [place] [address] Care Team Providers Care Food Manager Name Role Phone Farooq Rodríguez DO Primary Care Provider [phone] Reason for Visit * Reason Onset Date Comments COVID-19 Screening 12/07/2020 Encounter Details Date Type Department Care Team Description 12/07/2020 Telephone COVID19 Screening [facility] [address] [place] [id number], Automated Provider COVID-19 Screening Allergies No Known Active Allergiesdocumented as of this encounter (statuses as of 12/08/2020) Medications Medication Sig Dispensed Refills Start Date [...] (PROAIR HFA) 108 (90 BASE) MCG/ACT inhalerIndications:Ac [place] bronchitis, antibiotics not indicated Inhale 2 Puffs [...] 400 Units by mouth daily. 0 Active [place]-3 Fatty Acids (OMEGA 3 500) 500 MG CAPS Take by mouth. 0 Active Azelastine HCl 0.1 % nasal sprayIndications:Pcat Instructor alison rhinitis USE 2 SPRAY(S) IN EACH [...] mouth daily. 90 Tab 3 06/21/2020 Active Potassium Chloride ER 10 MEQ Oral Tablet Extended ReleaseIndications:HT N, goal below 140/90 Take 1 tablet by mouth once daily 90 Tab 0 09/20/2020 Active Tamsulosin HCl 0.4 MG Oral Capsule (FLOMAX)Indications:G ross hematuria Take 0.4 mg by mouth daily. 0 Active Furosemide 40 MG Oral Tablet (Lasix)Indications:HT N, goal below 140/90 Take 1 tablet by mouth once daily 90 Tab 0 11/30/2020 Active documented as of this encounter (statuses as of 12/08/2020) Active Problems Problem Noted Date Ascending aorta [...] as of this encounter (statuses as of 12/08/2020) Resolved Problems Problem Noted Date Resolved Date Dyslipidemia, goal LDL below 100 06/01/2014 12/08/2015 Hypoactive thyroid 01/07/2013 12/11/2016 Bronchiectasis 04/18/2003 06/12/2017 documented as of this encounter (statuses as of 12/08/2020) Immunizations Name Administration Dates Next Due Pneumococcal [...] encounter Miscellaneous Notes * Telephone Encounter - Kelsey, Covid Results - 12/08/2020 10:26 AM EST Outreach Attempts IVR Call Dec 07 2020 9:51AM Answered - Success Results COVID: Positive IVR Message: Mylene Cummins. Your test results from 12/02/2020 00:00:00 are as follows: COVID-19 is positive.This means you are infected with coronavirus 19. You will be receiving an automated call daily for the next 10 days to monitor your symptoms. Please select 1 if you would like to receive symptom monitoring calls. Please select 2 if you do not want to receive symptoms monitoring calls. Here's what you need to do immediately: Quarantine yourself in your home until: -You have had no fever for at least 24 hours (that is one full day of no fever without the use of medicine that reduces fevers) AND - other symptoms have improved (for example, when your cough or shortness of breath have improved) AND - at least 10 days have passed since your symptoms first appeared If you live with others, isolate yourself to a single room away from them and avoid any contact during the quarantine time. Wash your hands frequently and cover your cough. If you were in close contact with any family members, roommates or friends in the 2 days before your cold/flu symptoms started, notify them that you tested positive for COVID-19. Tell them that if they have cold/flu symptoms, they should call [facility]-19 hotline at 874-044-2623. Treat your symptoms with vcrq-zvy-uyslbrt medications, such as Tylenol. If you develop new symptoms or your symptoms are worsening, call [facility] COVID-19 hotline at 222-510-5391 or your physician for advice. If your symptoms become severe, go to the nearest ER. If you are alone and/or in distress, call 611. Your results are also available for your reference in your [employer] account under 'Test & Lab Results.' If you are not enrolled in [employer], you can create an account by going to [email or web address] You will also receive a letter in the mail with your results. If you are a [employer] staff member or employee, when you receive your result, please call [employer] [facility] between 7 a.m. and 4 p.m. at [phone]. Notify them of your test results and for instructions on returning to work after your quarantine period. Press 1 if you would like to speak with a nurse, press 2 to hear this message again. documented in this encounter Plan of Treatment Upcoming Encounters Date Type Specialty Care Team Description 12/22/2020 Imaging Radiology 04/29/2021 Office Visit Family Medicine Farooq Rodríguez, DO 200 [facility], [place] [id number] 06/02/2021 Office Visit Cardiology Kath Carlin PA-C 132 [facility] [place] [address] [phone] Health Maintenance Due Date Last Done Comments [...] Documents on File Type Date Recorded Patient Spray Technician Expl anation Advanced Directive Advanced Directive Advanced Directive Advanced Directive Advanced Directive Advanced Directive Advanced Directive Advanced Directive Advanced Directive Advanced Directive
--- OUTSIDE RECORDS SUMMARY | 2023-09-26 02:15 | External Medical Summary ---
Author Name Unknown Address Unknown Organization K01:LABORATORY [facility] - [address] [facility] [place] [address] Laboratory Report Ordering Provider Test Date Status CAROLE RICE 12/22/2020 12:12:03 Final Observation Date Value Abnormality Reference (Units ) Status T4, Free 12/22/2020 12:12:03 1.3 0.9-1.7 (n g/dL) Final Performing Location LABORATORY [facility] - [address] [place] [address]
--- OUTSIDE RECORDS SUMMARY | 2023-09-26 02:16 | External Medical Summary | Summary of Care ---
Author Name Unknown Organization [facility] Address [place] [address] Care Team Providers Care Mine Motor Operator Name Role Phone Farooq Rodríguez DO Primary Care Provider [phone] Reason for Visit * Reason Onset Date Comments COVID-19 Screening 12/02/2020 Encounter Details Date Type Department Care Team Description 12/02/2020 Pandemic Screening COVID19 Screening, [place] [address] [place] [address] [place], Covid19 Screening [address] [facility] [place] [address] [phone] Suspected 2019 novel coronavirus infection* Allergies No Known Active Allergiesdocumented as of this encounter (statuses as of 12/02/2020) Medications Medication Sig Dispensed Refills Start Date [...] (PROAIR HFA) 108 (90 BASE) MCG/ACT inhalerIndications:Ac [place] bronchitis, antibiotics not indicated Inhale 2 Puffs [...] 400 Units by mouth daily. 0 Active [place]-3 Fatty Acids (OMEGA 3 500) 500 MG CAPS Take by mouth. 0 Active Azelastine HCl 0.1 % nasal sprayIndications:Peoplesoft Financial Developer alison rhinitis USE 2 SPRAY(S) IN EACH [...] as of this encounter (statuses as of 12/02/2020) Active Problems Problem Noted Date Ascending aorta [...] as of this encounter (statuses as of 12/02/2020) Resolved Problems Problem Noted Date Resolved Date Dyslipidemia, goal LDL below 100 06/01/2014 12/08/2015 Hypoactive thyroid 01/07/2013 12/11/2016 Bronchiectasis 04/18/2003 06/12/2017 documented as of this encounter (statuses as of 12/02/2020) Immunizations Name Administration Dates Next Due Pneumococcal [...] as of this encounter Progress Notes * Cathie Zuniga PA-C - 12/02/2020 8:57 AM EST Patient verified by name and . Travel Screening No screening recorded since 12/01/20 0000 Travel History Travel since 11/01/20 No documented travel since 11/01/20 Symptomatic. No acute distress. COVID-19 Suspected based on symptoms and exposure Testing ordered COVID 19 Testing Cathie Zuniga PA-C documented in this encounter Plan of Treatment Upcoming Encounters Date Type Specialty Care Team Description 12/22/2020 Imaging Radiology 04/29/2021 Office Visit Family Medicine Farooq Rodríguez, DO [address] [facility] [address] [phone] 06/02/2021 Office Visit Cardiology Kath Carlin PA-C [address] [facility] [place] [address] [phone] Scheduled Orders Name Type Priority Associated Diagnoses Orde r Schedule SARS-COV-2 RNA (COVID-19), QUALITATIVE NAAT, [facility] Lab Routine Suspected 2019 novel coronavirus infection Ordered: 12/02/2020 Health Maintenance Due Date Last Done Comments [...] Diagnosis Suspected 2019 novel coronavirus infection- Primary documented in this encounter Advance Directives Documents on File Type Date Recorded Patient Manager Production Expl anation Advanced Directive Advanced Directive Advanced Directive Advanced Directive Advanced Directive Advanced Directive Advanced Directive Advanced Directive Advanced Directive Advanced Directive
--- OUTSIDE RECORDS SUMMARY | 2023-09-26 02:16 | External Medical Summary | Summary of Care ---
Author Name Unknown Organization [facility] Address [place] [address] Care Team Providers Care Vendor Management Specialist Name Role Phone Farooq Rodríguez DO Primary Care Provider [phone] Reason for Visit * Reason Onset Date Comments COVID-19 Screening 12/06/2020 Encounter Details Date Type Department Care Team Description 12/06/2020 Telephone COVID19 Screening [facility] [address] [place] [address] [phone], Automated Provider COVID-19 Screening Allergies No Known Active Allergiesdocumented as of this encounter (statuses as of 12/06/2020) Medications Medication Sig Dispensed Refills Start Date [...] (PROAIR HFA) 108 (90 BASE) MCG/ACT inhalerIndications:Ac walker river bronchitis, antibiotics not indicated Inhale 2 Puffs [...] 400 Units by mouth daily. 0 Active [place]-3 Fatty Acids (OMEGA 3 500) 500 MG CAPS Take by mouth. 0 Active Azelastine HCl 0.1 % nasal sprayIndications:Coiler Operator alison rhinitis USE 2 SPRAY(S) IN [...] as of this encounter (statuses as of 12/06/2020) Active Problems Problem Noted Date Ascending aorta [...] as of this encounter (statuses as of 12/06/2020) Resolved Problems Problem Noted Date Resolved Date Dyslipidemia, goal LDL below 100 06/01/2014 12/08/2015 Hypoactive thyroid 01/07/2013 12/11/2016 Bronchiectasis 04/18/2003 06/12/2017 documented as of this encounter (statuses as of 12/06/2020) Immunizations Name Administration Dates Next Due Pneumococcal [...] Telephone Encounter - Hima Cole Results - 12/06/2020 9:36 AM EST Outreach Attempts IVR Call Dec 05 2020 9:25AM Voicemail - Voicemail Results COVID: Positive IVR Message: Mylene Carlos Abalaji. This is MPV calling to let you know you have test results available. You can access this result in your [employer] account under 'Test & Lab Results'. If you are not enrolled in [employer], you can create an account by going to [email or web address]. You can also call back at [phone] Or we will attempt to reach you later today. documented in this encounter Plan of Treatment Upcoming Encounters Date Type Specialty Care Team Description 12/22/2020 Imaging Radiology 04/29/2021 Office Visit Family Medicine Farooq Rodríguez, DO [address] [place] [address] [phone] 06/02/2021 Office Visit Cardiology Kath Carlin PA-C [address] [facility] [place] [address] [phone] Health Maintenance Due Date Last Done Comments [...] Documents on File Type Date Recorded Patient Remote Coders Expl anation Advanced Directive Advanced Directive Advanced Directive Advanced Directive Advanced Directive Advanced Directive Advanced Directive Advanced Directive Advanced Directive Advanced Directive
--- OUTSIDE RECORDS SUMMARY | 2023-09-26 02:16 | External Medical Summary | Summary of Care ---
Author Name Unknown Organization [facility] Address [place] [address] Care Team Providers Care Crushing Mill Operator Name Role Phone Farooq Rodríguez DO Primary Care Provider [phone] Reason for Visit * Reason Onset Date Comments COVID-19 Screening 12/07/2020 Encounter Details Date Type Department Care Team Description 12/07/2020 Telephone COVID19 Screening [facility] [address] [place] [address] [id number], Automated Provider COVID-19 Screening Allergies No Known Active Allergiesdocumented as of this encounter (statuses as of 12/07/2020) Medications Medication Sig Dispensed Refills Start Date [...] (PROAIR HFA) 108 (90 BASE) MCG/ACT inhalerIndications:Ac yurok bronchitis, antibiotics not indicated Inhale 2 Puffs [...] 400 Units by mouth daily. 0 Active [place]-3 Fatty Acids (OMEGA 3 500) 500 MG CAPS Take by mouth. 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 Technician alison rhinitis USE 2 SPRAY(S) IN [...] as of this encounter (statuses as of 12/07/2020) Active Problems Problem Noted Date Ascending aorta [...] as of this encounter (statuses as of 12/07/2020) Resolved Problems Problem Noted Date Resolved Date Dyslipidemia, goal LDL below 100 06/01/2014 12/08/2015 Hypoactive thyroid 01/07/2013 12/11/2016 Bronchiectasis 04/18/2003 06/12/2017 documented as of this encounter (statuses as of 12/07/2020) Immunizations Name Administration Dates Next Due Pneumococcal [...] Telephone Encounter - Hima Cole Results - 12/07/2020 1:42 AM EST Outreach Attempts Dec 06 2020 9:05AM - Fail to reach patient Results COVID: Positive IVR Message: Unsuccessful contact, no education provided documented in this encounter Plan of Treatment Upcoming Encounters Date Type Specialty Care Team Description 12/22/2020 Imaging Radiology 04/29/2021 Office Visit Family Medicine Farooq Rodríguez, DO [address] [place] [address] [phone] 06/02/2021 Office Visit Cardiology Kath Carlin PA-C [address] [facility] [place] [address] [phone] Health Maintenance Due Date Last Done Comments [...] Documents on File Type Date Recorded 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
--- OUTSIDE RECORDS SUMMARY | 2023-09-26 02:16 | External Medical Summary | Summary of Care ---
Author Name Unknown Organization [facility] Address [place] [address] Care Team Providers Care Sales Marketing Manager Name Role Phone Farooq Rodríguez DO Primary Care Provider [phone] Reason for Visit * Reason Onset Date Comments COVID-19 Screening 12/05/2020 Encounter Details Date Type Department Care Team Description 12/05/2020 Telephone COVID19 Screening [facility] [address] [place] [address] [id number], Automated Provider COVID-19 Screening Allergies No Known Active Allergiesdocumented as of this encounter (statuses as of 12/05/2020) Medications Medication Sig Dispensed Refills Start Date [...] (PROAIR HFA) 108 (90 BASE) MCG/ACT inhalerIndications:Ac osage bronchitis, antibiotics not indicated Inhale 2 Puffs [...] 400 Units by mouth daily. 0 Active [place]-3 Fatty Acids (OMEGA 3 500) 500 MG CAPS Take by mouth. 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 alison rhinitis USE 2 SPRAY(S) IN EACH [...] as of this encounter (statuses as of 12/05/2020) Active Problems Problem Noted Date Ascending aorta [...] as of this encounter (statuses as of 12/05/2020) Resolved Problems Problem Noted Date Resolved Date Dyslipidemia, goal LDL below 100 06/01/2014 12/08/2015 Hypoactive thyroid 01/07/2013 12/11/2016 Bronchiectasis 04/18/2003 06/12/2017 documented as of this encounter (statuses as of 12/05/2020) Immunizations Name Administration Dates Next Due Pneumococcal [...] Telephone Encounter - Hima Cole Results - 12/05/2020 6:21 PM EST Outreach Attempts IVR Call Dec 04 2020 10:19AM Voicemail - Voicemail Results COVID: Positive IVR Message: Mylene Carlos Abalaji. This is [employer] calling to let you know you have test results available. You can access this result in your [employer] account under 'Test & Lab Results'. If you are not enrolled in [employer], you can create an account by going to [email or web address]. You can also call back at [phone] Or we will attempt to reach you later today. documented in this encounter Plan of Treatment Upcoming Encounters Date Type Specialty Care Team Description 12/22/2020 Imaging Radiology 04/29/2021 Office Visit Family Medicine Farooq Rodríguez, DO [address] [place] [address] [phone] 06/02/2021 Office Visit Cardiology Kath Carlin PA-C [address] [facility] [place] [address] [phone] Health Maintenance Due Date Last Done Comments [...] Documents on File Type Date Recorded Patient Tip Scourer Expl anation Advanced Directive Advanced Directive Advanced Directive Advanced Directive Advanced Directive Advanced Directive Advanced Directive Advanced Directive Advanced Directive Advanced Directive
--- OUTSIDE RECORDS SUMMARY | 2023-09-26 02:17 | External Medical Summary ---
Author Name Unknown Address Unknown Organization R:IT USE ONLY!!! 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 12/02/2020 08:57 Not Given Final Has symptoms related to cond of interest 12/02/2020 08:57 Not Given Final When did you start to experience these symptoms [Date and time] PhenX 12/02/2020 08:57 [id number] Final Patient was hospitalized because of this condition 12/02/2020 08:57 Not Given Final Admit to ICU for cond of interest 12/02/2020 08:57 Not Given Final Resides in congregate care setting 12/02/2020 08:57 Not Given Final status 12/02/2020 08:57 Not Given Final Race:Type:Point in time:^Patient:Nominal 12/02/2020 08:57 Not Given Final Ethnic background [Type] Stated 12/02/2020 08:57 Not Given Final SARS Coronavirus 2 12/03/2020 22:30 Detected Abnormal QNT Final (NOTE)
A Detected result is considered a positive test result
for COVID- 19. This indicates that RNA from SARS-CoV-2
(formerly 2019-nCoV) was detected, and the patient is
infected with the virus and presumed to be contagious.
If requested by public health authority, specimen will
be sent for additional testing.
CRITICAL VALUE REPORT

Please review the "Fact Sheets" and FDA authorized
labeling available for health care providers and
patients using the following websites:
https://www.[employer].com/home/Covid-19/HCP/
QuestLDT/f act-sheet
https://www.[employer].Kitenga/home/Covid-19/
Patients/Quest LDT/fact-sheet.html
This test has been authorized by the FDA under an
Emergency Use Authorization (EUA) for use by authorized
laboratories.

Due to the current public health emergency, [facility] is receiving a high volume of samples from
a wide variety of swabs and media for COVID-19 testing.
In order to serve patients during this public health
crisis, samples from appropriate clinical sources are
being tested. Negative test results derived from
specimens received in non-commercially manufactured
viral collection and transport media, or in media and
sample collection kits not yet authorized by FDA for
COVID-19 testing should be cautiously evaluated and
the patient potentially subjected to extra precautions
such as additional clinical monitoring, including
collection of an additional specimen.
Methodology: Nucleic Acid Amplification Test (NAAT)
includes RT-PCR or TMA

Additional information about COVID-19 can be found at
the [employer] website:
[email or web address] Performing Location IT USE ONLY!!!
--- OUTSIDE RECORDS SUMMARY | 2023-09-26 02:17 | External Medical Summary | Summary of Care ---
Author Name Unknown Organization [place] [address] Care Team Providers Care Ecd Name Role Phone Farooq Rodríguez DO Primary Care Provider [phone] Reason for Visit * Reason Onset Date Comments Appointment 10/28/2020 Urology Encounter Details Date Type Department Care Team Description 10/28/[address] [facility] [address] [place] [address] Farooq Rodríguez DO [address] [place] [address] [phone] Appointment (Urology) Allergies No Known Active Allergiesdocumented as of this encounter (statuses as of 10/28/2020) Medications Medication Sig Dispensed Refills Start Date [...] (PROAIR HFA) 108 (90 BASE) MCG/ACT inhalerIndications:Ac poarch bronchitis, antibiotics not indicated Inhale 2 Puffs [...] 400 Units by mouth daily. 0 Active [place]-3 Fatty Acids (OMEGA 3 500) 500 MG CAPS Take by mouth. 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 30 Tab 3 08/22/2019 Active furosemide (LASIX) 40 MG Tablet TAKE 1 TABLET BY MOUTH ONCE DAILY 90 Tab 3 12/01/2019 Active spironolactone (ALDACTONE) 25 MG Tablet TAKE [...] Active Tamsulosin HCl 0.4 MG Oral Capsule (FLOMAX) Take 0.4 mg by mouth daily. 0 Active documented as of this encounter (statuses as of 10/28/2020) Active Problems Problem Noted Date Bradycardia 05/31/2020 Dilated aortic root 12/11/2016 Encounter [...] as of this encounter (statuses as of 10/28/2020) Resolved Problems Problem Noted Date Resolved Date Dyslipidemia, goal LDL below 100 06/01/2014 12/08/2015 Hypoactive thyroid 01/07/2013 12/11/2016 Bronchiectasis 04/18/2003 06/12/2017 documented as of this encounter (statuses as of 10/28/2020) Immunizations Name Administration Dates Next Due Pneumococcal [...] encounter Miscellaneous Notes * Telephone Encounter - Bettie Tidwell OSA - 10/28/2020 9:54 AM EST As per order, pt wants to be seen at [place]. Order and recs were faxed to [phone]. They will be reviewed clinically and sent to schedule based on urgency of appt. They will reach out to pt directly to schedule. documented in this encounter Plan of Treatment Upcoming Encounters Date Type Specialty Care Team Description 12/01/2020 Office Visit Cardiology Kath Carlin PA-C [address] [facility] [place] [address] [phone] 12/22/2020 Imaging Radiology 04/29/2021 Office Visit Family Medicine Farooq Rodríguez, DO [address] [facility] [address] [phone] Health Maintenance Due Date Last Done Comments [...] Documents on File Type Date Recorded Patient Horse Shoer Expl anation Advanced Directive Advanced Directive Advanced Directive Advanced Directive Advanced Directive Advanced Directive Advanced Directive Advanced Directive
--- OUTSIDE RECORDS SUMMARY | 2023-09-26 02:17 | External Medical Summary | Summary of Care ---
Author Name Unknown Organization [place] [address] Care Team Providers Care Digital Content Manager Name Role Phone Farooq Rodríguez DO Primary Care Provider [phone] Reason for Referral * Evaluate & Treat - Unlimited Visits (Within 10 days (routine)) Status Reason Specialty Diagnoses / Procedures Referred By Contact Referred To Contact Pending Review Specialty Services Required Urology Diagnoses Gross hematuria Farooq Rodríguez, DO [address] [place] [address] Reason for Visit * Reason Onset Date Comments Emergency Department Follow-Up P atient was at [facility] 10/26/2020 for hematuria. still having hematuria off and on. Immunizations 10/27/2020 Encounter Details Date Type Department Care Team Description 10/27/2020 Office Visit Family Practice [facility] [place] [address] [place] [address] Farooq Rodríguez DO [address] [facility] [address] [phone] Gross hematuria*; Need for prophylactic vaccination with tetanus-diphtheria (Td) Allergies No Known Active Allergiesdocumented as of this encounter (statuses as of 11/04/2020) Medications Medication Sig Dispensed Refills Start Date [...] (PROAIR HFA) 108 (90 BASE) MCG/ACT inhalerIndications:Ac pamunkey bronchitis, antibiotics not indicated Inhale 2 Puffs [...] 400 Units by mouth daily. 0 Active [place]-3 Fatty Acids (OMEGA 3 500) 500 MG CAPS Take by mouth. 0 Active Azelastine HCl 0.1 % nasal sprayIndications:Gas Brazer alison rhinitis USE 2 SPRAY(S) IN EACH [...] Tamsulosin HCl 0.4 MG Oral Capsule (FLOMAX)Indications:G anu hematuria Take 0.4 mg by mouth daily. 0 Active documented as of this encounter (statuses as of 11/04/2020) Active Problems Problem Noted Date Bradycardia 05/31/2020 [...] as of this encounter (statuses as of 11/04/2020) Resolved Problems Problem Noted Date Resolved Date Dyslipidemia, goal LDL below 100 06/01/2014 12/08/2015 Hypoactive thyroid 01/07/2013 12/11/2016 Bronchiectasis 04/18/2003 06/12/2017 documented as of this encounter (statuses as of 11/04/2020) Immunizations Name Administration Dates Next Due Pneumococcal [...] Sign Reading Time Taken Comments Blood Pressure 110/60 10/27/2020 1:53 PM EST Pulse 72 10/27/2020 1:53 PM EST Temperature 36.3 C (97.4 F) 10/27/2020 1:53 PM ES T Respiratory Rate 18 10/27/2020 1:53 PM EST Oxygen Saturation 98% 10/27/2020 1:53 PM EST Inhaled Oxygen Concentration - - Weight 109 kg (240 lb 3.2 oz) 10/27/2020 1:53 PM EST Height 172.7 cm (5' 8") 10/27/2020 1:53 PM EST Body Mass Index 36.52 10/27/2020 1:53 PM EST documented in this encounter Patient Instructions * Patient Instructions* Hemalatha Ambrose LPN - 10/27/2020 1:53 PM EST ~~PATIENT INSTRUCTIONS FOR Td VACCINE~~ Possible side effects of Td vaccine, (tetanus shot), are usually mild and can include: 1. Soreness or redness at injection site 2. Low grade fever 3. Body aches You may use a fever / pain reducing medication as needed for these symptoms. LET YOUR DOCTOR KNOW IMMEDIATELY IF YOU HAVE DIFFICULTY BREATHING OR SWALLOWING, EXPERIENCE ITCHINGOF FEET OR HANDS, HAVE SWELLING OF EYES, FACE OR INSIDE OF NOSE. documented in this encounter Progress Notes * Farooq Rodríguez DO - 10/27/2020 2:13 PM EST Subjective: Placido Dean is a 60 year old male. Chief Complaint Patient presents with Emergency Department Follow-Up Patient was at [facility] 10/26/2020 for hematuria. still having hematuria off and on. Immunizations HPI: Pt to the ER on 10/26 for hematuria. He had R low back pain afterwards. This had started at work. His urine showed gross blood. Repeat urination was clearer and he felt better. Mild anemia present. CT showed several stones but nothing down in his ureter. Pt sent home on Tamsulosin and told to follow with urology. Initially it was painless hematuria. He got dizzy and some headache. Some pain in his R back. That has stayed. Pain in his left lower abdomen later in the morning. He got same pain in his B/L testicles after that. Very slight testicular pain now. For a full day or so he had no blood in his urine. Then at 9 AM this AM he had blood again. He is using a screen for a stones. He is taking the tamsulosin. 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 Potassium Chloride ER 10 MEQ Oral Tablet Extended Release Take 1 tablet by mouth once daily 90 Tab 0 lisinopril 40 MG Tablet Take 1 Tab by mouth daily. 90 Tab 3 atorvaSTATin (LIPITOR) 40 MG Tablet Take 1 tablet by mouth once daily 90 Tab 3 levothyroxine (LEVOXYL) 75 MCG Tablet TAKE 1 TABLET BY MOUTH ONCE DAILY IN THE MORNING ON EMPTYSTOMACH WITH FULL GLASS OF WATER 90 Tab 3 spironolactone (ALDACTONE) 25 MG Tablet TAKE 1 TABLET BY MOUTH ONCE DAILY IN THE MORNING 90 Tab3 furosemide (LASIX) 40 MG Tablet TAKE 1 TABLET BY MOUTH ONCE DAILY 90 Tab 3 meclizine (ANTIVERT) 25 MG Tablet Take 1 Tab by mouth 3 times a day as needed for Dizziness. 30Tab 3 Azelastine HCl 0.1 % nasal spray USE 2 SPRAY(S) IN EACH NOSTRIL TWICE DAILY 90 mL 1 [place]-3 Fatty Acids (OMEGA 3 500) 500 MG [...] allergies indicates: No Known Allergies OBJECTIVE: BP 110/60 | Pulse 72 | Temp 36.3 C (97.4 F) (Tympanic) | Resp 18 | Ht 1.727 m (5' 8") | Wt 109 kg (240 lb 3.2 oz) | SpO2 98% | BMI 36.52 kg/m | BSA 2.29 m Estimated body mass index is 36.52 kg/m as calculated from the following: Height as of this encounter: 1.727 m (5' 8"). Weight as of this encounter: 109 kg (240 lb 3.2 oz). BP Readings from Last 3 Encounters: 10/27/20 110/60 06/17/20 130/80 05/31/20 144/98 Wt Readings from Last 3 Encounters: 10/27/20 109 kg (240 lb 3.2 oz) 05/31/20 106.4 kg (234 lb 8 oz) 11/21/19 108.1 kg (238 lb 4 oz) ROS: Negative except for above PHYSICAL EXAM: General: alert, healthy and no distress Head: Normocephalic, No masses, lesions, tenderness or abnormalities Heart: regular rate & rhythm, no murmurs and no gallops Lungs: chest symmetric with normal AP diameter, no chest deformities noted, no chest wall tenderness, lungs clear to auscultation Abdomen: abdomen soft, non-tender, normal bowel sounds and no masses or organomegaly Back: back symmetric, no curvature, no costovertebral angle tenderness, range of motion is normal ASSESSMENT/Plan Gross hematuria (Primary) - UROLOGY REFERRAL OP Need for prophylactic vaccination with tetanus-diphtheria (Td) - TETANUS-DIPHTHERIA, AGE 7 AND OLDER Continued hematuria, will send to URology. The above was discussed and understanding was expressed. Farooq Rodríguez DO * Hemalatha Ambrose LPN - 10/27/2020 1:58 PM EST Pre-Administration Time Out Procedure Performed: Yes Patient Identified (Ask Name/Date of ): Yes Does the patient have a fever greater than 101 degrees today? No Patient allergic to latex? No Has the patient ever fainted after receiving an injection? No VFC Stock: No Immunization(s) verified: Yes, Immunization Name: Td (Adult Preservative Free), VIS Sheet(s) given:Yes Verified Side and Site: Yes Verified Shot(s) with Parent(s)/Patient: Yes documented in this encounter Nursing Notes * Hemalatha Ambrose LPN - 10/27/2020 1:53 PM EST Chief Complaint Patient presents with Emergency Department Follow-Up Patient was at [facility] 10/26/2020 for hematuria. still having hematuria off and on. documented in this encounter Plan of Treatment Upcoming Encounters Date Type Specialty Care Team Description 12/01/2020 Office Visit Cardiology Kath Carlin PA-C [address] [place] [address] [phone] 12/22/2020 Imaging Radiology 04/29/2021 Office Visit Family Medicine Farooq Rodríguez, DO [address] [place] [address] [phone] Scheduled Referrals Name Type Priority Associated Diagnoses Orde r Schedule UROLOGY REFERRAL OP Referral Within 10 da ys (routine) Gross hematuria Ordered: 10/27/2020 Health Maintenance Due Date Last Done Comments [...] as of this encounter Visit Diagnoses Diagnosis Gross hematuria- Primary Need for prophylactic vaccination with tetanus-diphtheria (Td) documented in this encounter Advance Directives Documents on File Type Date Recorded 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
--- OUTSIDE RECORDS SUMMARY | 2023-09-26 02:17 | External Medical Summary | Summary of Care ---
Author Name Unknown Organization [facility] Address [place] [address] Care Team Providers Care Saw Handle Assembler Name Role Phone AntolinFarooq roger Primary Care Provider [phone] Reason for Visit * Reason Comments Follow Up Encounter Details Date Type Department Care Team Description 12/01/2020 Office Visit Cardiology, [facility] [address] [place] [place] [address] Kath Calrin PA-C [address] [place] [address] [phone] Dilated aortic root (HCC)*; HTN, goal below 140/90; Ascending aorta dilatation (HCC); Chronic diastolic (congestive) heart failure (HCC); Pericardial effusion; Bradycardia Allergies No Known Active Allergiesdocumented as of this encounter (statuses as of 12/01/2020) Medications Medication Sig Dispensed Refills Start Date [...] (PROAIR HFA) 108 (90 BASE) MCG/ACT inhalerIndications:Ac [place] bronchitis, antibiotics not indicated Inhale 2 Puffs [...] 400 Units by mouth daily. 0 Active [place]-3 Fatty Acids (OMEGA 3 500) 500 MG CAPS Take by mouth. 0 Active Azelastine HCl 0.1 % nasal sprayIndications:Roofer Assistant alison rhinitis USE 2 SPRAY(S) IN EACH [...] as of this encounter (statuses as of 12/01/2020) Active Problems Problem Noted Date Ascending aorta [...] as of this encounter (statuses as of 12/01/2020) Resolved Problems Problem Noted Date Resolved Date Dyslipidemia, goal LDL below 100 06/01/2014 12/08/2015 Hypoactive thyroid 01/07/2013 12/11/2016 Bronchiectasis 04/18/2003 06/12/2017 documented as of this encounter (statuses as of 12/01/2020) Immunizations Name Administration Dates Next Due Pneumococcal [...] Sign Reading Time Taken Comments Blood Pressure 126/74 12/01/2020 8:22 AM EST Pulse 60 12/01/2020 8:22 AM EST Temperature 36.3 C (97.3 F) 12/01/2020 8:22 AM ES T Respiratory Rate 12 12/01/2020 8:22 AM EST Oxygen Saturation - - Inhaled Oxygen Concentration - - Weight 111.5 kg (245 lb 12.8 oz) 12/01/2020 8:22 AM EST Height - - Body Mass Index 37.37 10/27/2020 1:53 PM EST documented in this encounter Patient Instructions * Patient Instructions* Kath Carlin PA-C - 12/01/2020 8:41 AM EST Fasting blood work in the near future. Nothing to eat for about 10-12 hours. May have water. documented in this encounter Progress Notes * Kath Carlin PA-C - 12/01/2020 8:27 AM EST 12/01/2020 Cardiology F/U: History of Present Illness: Mr. Dean is a 60 year old male who presents today for routine cardiology follow-up. Last clinic evaluation approx 6 months ago with the undersigned. 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 F/U echocardiograms demonstrated normal pericardium without pericardial effusion, normal EF, andno significant valvular disease with dilated aortic root measuring 4.7 cm and ascending aortic dilation measuring 4.0 cm. Other history significant for inflammatory pulmonary disease for which he follows with [facility], dyslipidemia, hepatic steatosis, hypertension, obesity, and chronic diastolic HF controlled on low dosefurosemide. Patient presents today feeling well. Mild weight gain noted. Intermittent LE edema reported but he denies associated SOB. He did not take his diuretics today. He attributes weight gain to diet and lack of exercise No chest pain, shortness of breath, palpitations, dizziness, syncope or near syncope. No orthopnea,PND, or increased lower extremity edema. No fever, chills, cough, hematochezia, melena, or hemoptysis. Review of Systems: See HPI for pertinent positives. All other 10 point review of systems is negative. Patient Active Problem List Diagnosis Code Paulo's [...] Dilated aortic root (HCC) I77.810 Bradycardia R00.1 Social History Tobacco Use Smoking status: Never Smoker Smokeless tobacco: Former User Types: Chew Tobacco comment: quit Substance Use Topics Alcohol use: Yes Alcohol/week: 5.0 standard drinks Types: 6 12 oz of beer per week Drug use: No Vaping/E-Cigarette Use Vaping/E-Cigarette Substances Vaping/E-Cigarette Devices Review of patient's allergies indicates: No Known Allergies Current Outpatient Medications Medication Sig Dispense Refill Furosemide 40 MG Oral Tablet (Lasix) Take [...] ONCE DAILY IN THE MORNING 90 Tab3 meclizine (ANTIVERT) 25 MG Tablet Take 1 Tab by mouth 3 times a day as needed for Dizziness. 30Tab 3 Azelastine HCl 0.1 % nasal spray USE 2 SPRAY(S) IN EACH NOSTRIL TWICE DAILY 90 mL 1 [place]-3 Fatty Acids (OMEGA 3 500) 500 [...] PO TABS One daily OBJECTIVE/PHYSICAL EXAMINATION: BP 126/74 | Pulse 60 | Temp 36.3 C (97.3 F) (Tympanic) | Resp 12 | Wt 111.5 kg (245 lb 12.8 oz)| BMI 37.37 kg/m | BSA 2.31 m BP Readings from Last 4 Encounters: 12/01/20 126/74 10/27/20 110/60 06/17/20 130/80 05/31/20 144/98 Wt Readings from Last 3 Encounters: 12/01/20 111.5 kg (245 lb 12.8 oz) 10/27/20 109 kg (240 lb 3.2 oz) 05/31/20 106.4 kg (234 lb 8 oz) General: NAD. A&Ox3. Eyes: Conjunctiva are pink and non-injected, sclera clear Neck: No overt JVD. Chest: Normal respiratory effort Lungs: Clear to auscultation Cardiac Exam: RRR. No murmurs, rubs, or gallops Abdomen: Distended. Obese. +BS. Soft. Extremities: No edema Neuro: Grossly normal exam Psych: Appropriate affect and insight. DATA: EKG performed today and reviewed personally: Sinus bradycardia at 55 bpm Incomplete right [...] and aortic root sizes have increased slightly Lipid Panel Results: LIPID PANEL WITH DIRECT LDL IF TRIGLYCERIDE IS ELEVATED Selene Dt/Tm Resulted Value Status HOURS FASTING (hours) 02/24/20 7:57A 02/24/20 >8 HOURS F TRIGLYCERIDES (mg/dL) 02/24/20 7:57A 02/24/20 103 F CHOLESTEROL (mg/dL) 02/24/20 7:57A 02/24/20 158 F HDL (mg/dL) 02/24/20 7:57A 02/24/20 59 F NON-HDL CHOLESTEROL (mg/dL) 02/24/20 7:57A 02/24/20 99 F LDL (CALCULATED) (mg/dL) 02/24/20 7:57A 02/24/20 78 F LDL DIRECT(REFLEX) (mg/dL) 02/24/20 7:57A 02/24/20 F Value: NOT APPLICABLE Outpatient school bus monitor report reviewed dated November 2019: Duration [...] and PLAN: 60 year old male 1. Hypertension - controlled today 2. Bradycardia - asymptomatic. Stable. No significant pauses or bradyarrhythmias on prior monitor. 3. History of prior cardiac tamponade /effusion S/P pericardiocentesis in 2002- No recurrence per serial echocardiograms. Stable cardiovascular signs/symptoms 4. Chronic diastolic HF with intermittent edema - stable on current diuretic regimen. 5. Dyslipidemia - controlled. 6. Obesity - continued weight loss recommended. 7. Dilated aortic root, stable at 4.7, ascending aorta measuring 4.0 cm - slight increase on Echo May 2020. PLAN: CT of the chest already arranged to f/u on dilated aortic root, ascending aorta given recent changes in measurements on echo. Due for fasting labs int he near future. Orders in place. BP controlled He is to continue current medications as listed above. No changes were made at today's visit. Weight loss encouraged. Recommend regular aerobic exercise. [place] goal would be minimum of 30 minutes done daily. Exercise can be done in divided time periods if needed. Told to avoid extremes in temperature. The patient agrees to the above plan and will call with additional questions or concerns. ER with all emergencies advised. Follow-up: Return in about 6 months (around 05/31/2021). | Check-out note: Keep CT scan as scheduled; 6 months Kath Carlin PA-C Department of Cardiology This chart was completed in part utilizing [employer] Speech Voice Recognition Software. Grammatical errors, random word insertions, prounoun errors, and incomplete sentences are an occasional consequence of this system due to software limitations, ambient noise, and hardware issues. Any formal questions or concerns about the content, text, or information contained within the body of this dictation should be directly addressed to the provider for clarification. documented in this encounter Procedure Notes * Brandon Gonzales DO - 12/01/2020 8:31 AM EST Associated Order(s): EKG REASON FOR STUDY: routine CONCLUSIONS: Sinus bradycardia Incomplete right bundle branch block Septal infarct , age undetermined Abnormal ECG When compared with ECG of 21-NOV-2019 09:05, Septal infarct is now Present Ventricular Rate: 55 Atrial Rate: 55 AL Interval: 168 QRS Duration: 108 QT/QTc: 458/438 ms P-R-T Rosie: 57 : 65 : 56 degrees documented in this encounter Nursing Notes * Adriane Pope LPN - 12/01/2020 8:21 AM EST Examination Room: 6 Name: Placido Dean Date of : (1960). Reason for Visit: routine Interim Hospitalization(s): denies Problems/Concerns: denies Chest Pain/SOB: denies [facility] [...] Medicine Farooq Rodríguez, DO [address] [place], [place] [address] [phone] 06/02/2021 Office Visit Cardiology Kath Carlin PA-C [address] [address] [phone] Scheduled Orders Name Type Priority Associated Diagnoses Orde r Schedule COMPREHENSIVE METABOLIC PANEL Lab Routine HTN, goal below 140/90 Dilated aortic root (HCC) Ascending aorta dilatation (HCC) Chronic diastolic (congestive) heart failure (HCC) Expected: 12/13/2020 (Approximate), Expires: 12/01/2021 LIPID PANEL WITH DIRECT LDL IF TG IS HIGH Lab Routine HTN, goal below 140/90 Dilated aortic root (HCC) Ascending aorta dilatation (HCC) Chronic diastolic (congestive) heart failure (HCC) Expected: 12/13/2020 (Approximate), Expires: 12/01/2021 TSH WITH FREE T4 IF INDICATED Lab Routine HTN, goal below 140/90 Dilated aortic root (HCC) Ascending aorta dilatation (HCC) Chronic diastolic (congestive) heart failure (HCC) Expected: 12/13/2020 (Approximate), Expires: 12/01/2021 Health Maintenance Due Date Last Done Comments [...] Procedure Name Priority Date/Time Associated Diagnosis Comments EKG Routine 12/01/2020 8:31 AM EST HTN, goal below 140/90 documented in this encounter Results * EKG (12/01/2020 8:31 AM EST) Specimen Procedure Note Brandon Gonzales, DO - 12/01/2020 8:31 AM EST REASON FOR STUDY: routine CONCLUSIONS: Sinus bradycardia Incomplete right bundle branch block Septal infarct , age undetermined Abnormal ECG When compared with ECG of 21-NOV-2019 09:05, Septal infarct is now Present Ventricular Rate: 55 Atrial Rate: 55 AL Interval: 168 QRS Duration: 108 QT/QTc: 458/438 ms P-R-T Rosie: 57 : 65 : 56 degrees [facility] documented in this encounter Visit Diagnoses Diagnosis Dilated aortic root (HCC)- Primary Thoracic aortic ectasia HTN, goal below 140/90 Unspecified essential hypertension Ascending aorta dilatation (HCC) Thoracic aortic ectasia Chronic diastolic (congestive) heart failure (HCC) Pericardial effusion Unspecified disease of pericardium Bradycardia Other specified cardiac dysrhythmias documented in this encounter Advance Directives Documents on File Type Date Recorded Patient Pasteuriser Operator Expl anation Advanced Directive Advanced Directive Advanced Directive Advanced Directive Advanced Directive Advanced Directive Advanced Directive Advanced Directive Advanced Directive"
--- OUTSIDE RECORDS SUMMARY | 2023-09-26 02:17 | External Medical Summary | Summary of Care ---
Author Name Unknown Organization [place] [address] Care Team Providers Care Family Court Counsellor Name Role Phone Kelly Mitchell DO Primary Care Provider [phone] Reason for Visit * Reason Comments eRx-Medication Refill Encounter Details Date Type Department Care Team Description 11/29/2020 Refill Family Practice [facility] [address] [place] [address] Kelly Mitchell DO [address] [place], [place] [id number] HTN, goal below 140/90* Allergies No Known Active Allergiesdocumented as of this encounter (statuses as of 11/30/2020) Medications Medication Sig Dispensed Refills Start Date [...] 400 Units by mouth daily. 0 Active [place]-3 Fatty Acids (OMEGA 3 500) 500 MG [...] once daily 90 Tab 0 11/30/2020 Active furosemide (LASIX) 40 MG Tablet TAKE 1 TABLET BY MOUTH ONCE DAILY 90 Tab 3 12/01/2019 11/30/2020 Discontinued documented as of this encounter (statuses as of 11/30/2020) Active Problems Problem Noted Date Bradycardia 05/31/2020 [...] as of this encounter (statuses as of 11/30/2020) Resolved Problems Problem Noted Date Resolved Date Dyslipidemia, goal LDL below 100 06/01/2014 12/08/2015 Hypoactive thyroid 01/07/2013 12/11/2016 Bronchiectasis 04/18/2003 06/12/2017 documented as of this encounter (statuses as of 11/30/2020) Immunizations Name Administration Dates Next Due Pneumococcal [...] encounter Miscellaneous Notes * Telephone Encounter - Kailash Del Rosario RPh - 11/30/2020 2:03 PM EST Signed Prescriptions: Disp Refills Furosemide 40 MG Oral Tablet (Lasix) 90 Tab 0 Sig: Take 1 tabletby mouth once dailyAuthorizing Provider: KELLY MITCHELL User: KAILASH DEL ROSARIO documented in this encounter Plan of Treatment Upcoming Encounters Date Type Specialty Care Team Description 12/01/2020 Office Visit Cardiology Kath Carlin PA-C [address] [facility] [place] [address] [phone] 12/22/2020 Imaging Radiology 04/29/2021 Office Visit Family Medicine Kelly Mtichell, DO [address] [place] [address] [phone] Health Maintenance Due Date Last Done Comments [...] goal below 140/90- Primary Unspecified essential hypertension documented in this encounter Advance Directives Documents on File Type Date Recorded Patient Lamp Decorator Expl anation Advanced Directive Advanced Directive Advanced Directive Advanced Directive Advanced Directive Advanced Directive Advanced Directive Advanced Directive
--- OUTSIDE RECORDS SUMMARY | 2023-09-26 02:18 | External Medical Summary | Summary of Care ---
Author Name Unknown Organization [place] [address] Care Team Providers Care Sensor Operator Name Role Phone Kelly Mitchell DO Primary Care Provider [phone] Reason for Visit * Reason Comments eRx-Medication Refill Encounter Details Date Type Department Care Team Description 09/20/2020 Refill Family Practice [facility] [address] [facility] [address] Kelly Mitchell DO [address] [place], [place] [id number] HTN, goal below 140/90* Allergies No Known Active Allergiesdocumented as of this encounter (statuses as of 09/20/2020) Medications Medication Sig Dispensed Refills Start Date End Date Status ASPIRIN 81 MG PO TABS One daily 0 Active ZYRTEC ALLERGY 10 MG PO TABS one daily 0 Active ALBUTEROL SULFATE (2.5 MG/3ML) 0.083% IN BANNER one vial every 6 hours as needed [...] Units by mouth daily. 0 Active [place]-3 Fatty Acids (OMEGA 3 500) 500 MG [...] once daily 90 Tab 0 09/20/2020 Active potassium chloride ER 10 MEQ TBCR Take 1 tablet by mouth once daily 90 Tab 1 03/22/2020 09/20/2020 Discontinued documented as of this encounter (statuses as of 09/20/2020) Active Problems Problem Noted Date Bradycardia 05/31/2020 [...] as of this encounter (statuses as of 09/20/2020) Resolved Problems Problem Noted Date Resolved Date Dyslipidemia, goal LDL below 100 06/01/2014 12/08/2015 Hypoactive thyroid 01/07/2013 12/11/2016 Bronchiectasis 04/18/2003 06/12/2017 documented as of this encounter (statuses as of 09/20/2020) Immunizations Name Administration Dates Next Due Pneumococcal Conjugate Vacc, 13 Valent (Prevnar) 08/19/2010 Pneumococcal Conjugate Vacci ne, 7 Valent 10/15/2002 Pneumococcal Polysaccharide PPV23 (Pneumovax) 08/19/2010 Seasonal Influenza, Quadriva lent, No Preserve, IM 08/20/2019,08/03/2016 Seasonal Influenza, Trivalen t, with Preserve, 3yr & Above, Split 07/20/2018,08/03/2015,08/03/2014,08/06,08/14/2012,08/26/2009,09/03/2003 ,10/15/2002 TDAP (age 11 and older)(Adacel) 09/13/2009 Zoster Vaccine Recombinant (Shingrix) 04/23/2019 ,02/17/2019 documented as of this encounter Social History Tobacco Use Types Packs/Day Years Used Date Never Smoker Smokeless Tobacco: Former User Chew Quit: 04/21/2012 Comments:quit Alcohol Use Drinks/Week oz/Week Comments Yes 6 12 oz of beer 5.0 Sex Assigned at Date Recorded Not on file documented as of this encounter Miscellaneous Notes * Telephone Encounter - Kailash Del Rosario RPh - 09/20/2020 1:34 PM EST Signed Prescriptions: Disp Refills Potassium Chloride ER 10 MEQ Oral Tablet E*90 Tab 0 Sig: Take 1 tablet by mouth once dailyAuthorizing Provider: KELLY MITCHELL User: KAILASH DEL ROSARIO------ documented in this encounter Plan of Treatment Upcoming Encounters Date Type Specialty Care Team Description 09/30/2020 Office Visit Podiatry Libby Guillen DPM [address] [address] 12/01/2020 Office Visit Cardiology Kath Carlin PA-C [address] [address] [phone] 12/22/2020 Imaging Radiology Health Maintenance Due Date Last Done Comments *DEPRESSION SCREENING,ANNUAL FOR PTS 12 AND OVER 07/22/2019 DTaP,Tdap,and Td Vaccines (2 - Td) 09/13/2019 09/13/2009 Influenza Vaccine (FLU shot) (#1) 2020 08/20/2019, 07/20/2018, 08/03/2016, Additional history exists DIABETES SCREEN EVERY 3 YRS-AGE 45 AND ABOVE 11/21/2022 11/21/2019, 08/22/2019, 11/21/2018, Additional history exists LIPID SCREEN EVERY 5 YRS-MEN AGE 35-75 02/23/2025 02/24/2020, 01/14/2019, 11/21/2018, Additional history exists Pneumococcal Vaccine: Pediatrics (0 [...] Documents on File Type Date Recorded Patient Plant Inspector Expl anation Advanced Directive Advanced Directive Advanced Directive Advanced Directive Advanced Directive
--- OUTSIDE RECORDS SUMMARY | 2023-09-26 02:18 | External Medical Summary | Summary of Care ---
Author Name Unknown Organization [place] [address] Care Team Providers Care Wind Farm Operations Manager Name Role Phone Farooq Rodríguez Primary Care Provider [phone] Encounter Details Date Type Department Care Team Description 10/26/2020 Scan Encounter Unspecified Department <No scans attached> Allergies No Known Active Allergiesdocumented as of this encounter (statuses as of 10/27/2020) Medications Medication Sig Dispensed Refills Start Date [...] (PROAIR HFA) 108 (90 BASE) MCG/ACT inhalerIndications:Ac [place] bronchitis, antibiotics not indicated Inhale 2 Puffs [...] 400 Units by mouth daily. 0 Active [place]-3 Fatty Acids (OMEGA 3 500) 500 MG CAPS Take by mouth. 0 Active Azelastine HCl 0.1 % nasal sprayIndications:Dispatch Coordinator alison rhinitis USE 2 SPRAY(S) IN EACH [...] once daily 90 Tab 0 09/20/2020 Active documented as of this encounter (statuses as of 10/27/2020) Active Problems Problem Noted Date Bradycardia 05/31/2020 [...] as of this encounter (statuses as of 10/27/2020) Resolved Problems Problem Noted Date Resolved Date Dyslipidemia, goal LDL below 100 06/01/2014 12/08/2015 Hypoactive thyroid 01/07/2013 12/11/2016 Bronchiectasis 04/18/2003 06/12/2017 documented as of this encounter (statuses as of 10/27/2020) Immunizations Name Administration Dates Next Due Pneumococcal [...] Encounters Date Type Specialty Care Team Description 10/27/2020 Office Visit Family Medicine Farooq Rodríguez, [address] [place] [address] [phone] 12/01/2020 Office Visit Cardiology Kath Carlin PA-C [address] [facility] [place] [address] [phone] 12/22/2020 Imaging Radiology Health Maintenance Due Date Last Done Comments *DEPRESSION SCREENING,ANNUAL FOR PTS 12 AND OVER 07/22/2019 DTaP,Tdap,and Td Vaccines (2 - Td) 09/13/2019 09/13/2009 DIABETES SCREEN EVERY 3 YRS-AGE 45 AND [...] Documents on File Type Date Recorded Patient Quill Skinner Expl anation Advanced Directive Advanced Directive Advanced Directive Advanced Directive Advanced Directive Advanced Directive Advanced Directive
--- OUTSIDE RECORDS SUMMARY | 2023-09-26 02:18 | External Medical Summary | Summary of Care ---
Author Name Unknown Organization [facility] Address [place] [address] Care Team Providers Care Oil Well Engineer Name Role Phone Farooq Rodríguez Primary Care Provider [phone] Reason for Visit * Reason Comments NEW PATIENT bilat foot concerns Encounter Details Date Type Department Care Team Description 09/30/2020 Office Visit Podiatry [facility] [address] [facility] [place] [address] Libby Guillen DPM [address] [facility] [place] [address] [phone] Pain in both feet*; Metatarsalgia of left foot; Heloma molle Allergies No Known Active Allergiesdocumented as of this encounter (statuses as of 09/30/2020) Medications Medication Sig Dispensed Refills Start Date [...] (PROAIR HFA) 108 (90 BASE) MCG/ACT inhalerIndications:Ac ken[place] bronchitis, antibiotics not indicated Inhale 2 Puffs [...] Units by mouth daily. 0 Active [place]-3 Fatty Acids (OMEGA 3 500) 500 MG CAPS Take by mouth. 0 Active Azelastine HCl 0.1 % nasal sprayIndications:Hook Tender alison rhinitis USE 2 SPRAY(S) IN EACH [...] as of this encounter (statuses as of 09/30/2020) Active Problems Problem Noted Date Bradycardia 05/31/2020 [...] as of this encounter (statuses as of 09/30/2020) Resolved Problems Problem Noted Date Resolved Date Dyslipidemia, goal LDL below 100 06/01/2014 12/08/2015 Hypoactive thyroid 01/07/2013 12/11/2016 Bronchiectasis 04/18/2003 06/12/2017 documented as of this encounter (statuses as of 09/30/2020) Immunizations Name Administration Dates Next Due Pneumococcal [...] Pressure - - Pulse - - Temperature 35.8 C (96.4 F) 09/30/2020 1:47 PM ES T Respiratory Rate - - Oxygen Saturation - - Inhaled Oxygen Concentration - - Weight - - Height - - Body Mass Index - - documented in this encounter Progress Notes * Libby Guillen, DPM - 09/30/2020 2:12 PM EST Podiatry New Patient Note [facility] Name: Placido Woodward : 1960 Date: 09/30/2020 CHIEF COMPLAINT: Right foot pain, left foot tighness HISTORY OF PRESENT ILLNESS: This patient is a 60 year old male who presents today with complaints of right foot pain and left foot tightness. Pt states since March he has been noticing pain to his feetthat have increased over time. He has tried corn pads to the right foot and has not tried anything for the left foot. He does wear OTC insoles. He typically wear sneakers. No history of smoking. 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 Denies any other complaints. His shoes are about 2 months old. 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 Pericardial effusion 01/2003 idiopathic[place] [facility] [place] Pilonidal cyst without infection Past Surgical History: Procedure Laterality Date BRONCHOSCOPY W/ BRONCHIAL BIOPSY 2002 biopsy, open and bronchoscopy COLONOSCOPY, DIAGNOSTIC (RECTUM) 11/29/2012 COLONOSCOPY FLEXIBLE PROXIMAL DIAGNOSTIC performed by Cristy Dobbs DO at [facility] COLONOSCOPY, DIAGNOSTIC (RECTUM) 11/26/2015 diverticulosis, repeat 10 yrs/COLONOSCOPY FLEXIBLE PROXIMAL DIAGNOSTIC performed by Cristy Dobbs DO at END[facility] DENTAL SURGERY PROCEDURE NEC Dental Surgery Procedure DRAINAGE OF HEART SAC 2002 [facility] [place] REMOVAL OF WRIST LESION Family History Problem Relation Age of Onset [...] level: Not on file Occupational History 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: [employer] 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 Employer: [employer] 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 Employer: [employer] Social Needs Financial resource strain: Not on file Food insecurity Worry: Not on file Inability: Not on file Transportation needs Medical: Not on file Non-medical: Not on file Tobacco Use Smoking status: Never Smoker Smokeless tobacco: Former User Types: Chew Tobacco comment: quit Substance and Sexual Activity Alcohol use: Yes Alcohol/week: 5.0 standard drinks Types: 6 12 oz of beer per week Drug use: No Sexual activity: Yes Partners: Female Lifestyle Physical activity Days per week: Not on file Minutes per session: Not on file Stress: Not on file Relationships Social connections Talks on phone: Not on file Gets together: Not on file Attends holiness service: Not on file Active member of club or organization: Not on file Attends meetings of clubs or organizations: Not on file Relationship status: Not on file Intimate partner violence Fear of current or ex partner: Not on file Emotionally abused: Not on file Physically abused: Not on file Forced sexual activity: Not on file Other Topics Concern Service Yes Blood Transfusions No Caffeine Concern Not Asked Occupational Exposure Not Asked Hobby Hazards Not Asked Sleep Concern Not Asked Stress Concern Not Asked Weight Concern Not Asked Special Diet Not Asked Back Care Not Asked Exercise Not Asked Bike Helmet Not Asked Seat Belt Not Asked Self-Exams Not Asked Social History Narrative born in [place], life long resident Vaping/E-Cigarette Use Vaping/E-Cigarette Substances Vaping/E-Cigarette Devices Current Outpatient Medications Medication Sig Dispense Refill [...] DAILY IN THE MORNING 90 Tab 3 furosemide (LASIX) 40 MG Tablet TAKE 1 TABLET BY MOUTH ONCE DAILY 90 Tab 3 meclizine (ANTIVERT) 25 MG Tablet Take 1 Tab by mouth 3 times a day as needed for Dizziness. 30 Tab3 Azelastine HCl 0.1 % nasal spray USE 2 SPRAY(S) IN EACH NOSTRIL TWICE DAILY 90 mL 1 [place]-3 Fatty Acids (OMEGA 3 500) 500 MG [...] ASPIRIN 81 MG PO TABS One daily ALLERGIES: Review of patient's allergies indicates: No Known Allergies REVIEW OF SYSTEMS: CONSTITUTIONAL: No change in weight, No weakness, No fatigue and No fevers, sweats, or chills EYE: No recent significant change in vision and No eye pain, redness, discharge EARS: No ear pain and No recent change in hearing NOSE: No history of frequent colds or sinusitis and No nasal stuffiness PULMONARY: No cough, sputum, or hemoptysis and No recent change in breathing CARDIOVASCULAR: No chest pain and No shortness of breath EXTREMITIES: Right 4th and 5th toe pain SKIN/INTEGUMENTARY: No edema, No rash and No itching NEUROLOGIC: Normal balance, No headaches, No seizures and No weakness PSYCHIATRIC: No depression, No anxiety and No psychosis FOCUSED PODIATRIC EXAM: Vitals: Filed Vitals: 09/30/20 1347 Temp: 35.8 C (96.4 F) General: Patient is awake alert oriented to person place time. No apparent distress. Vascular: DP/PT pulses palpable, edenilson. CFT < 3 sec 1-5, edenilson. No edema noted, edenilson. Temperature gradient is normal warm to cold, edenilson. Neurologic: Protective sensation intact to light touch, edenilson. Sensation to sharp/dull is intact, edenilson. There is no babinski response elicited, edenilson. Ankle clonus is absent, edenilson. Dermatological: Skin is normal in appearance with no open lesions or interdigital macerations, edenilson. Nails 1-5, edenilson are normal in length and thickness. Pedal hair is noted, edenilson. HM noted to the 4th interspace, right foot. Musculoskeletal: POP noted to the 4th and 5th toe, right foot. POP noted to the plantar forefoot, left. No pain with active or passive ROM of the digits or ankle joint, edenilson. Muscle strength is 5/5 for all muscle groups of the lower extremity, edenilson. DIAGNOSTIC STUDIES: 3 views of bilateral feet- No acute fractures or dislocations noted. Joint spaces are open and congruent. ASSESSMENT: 1. Right foot pain 2. HM, 4th interspace, right foot 3. Metatarsalgia, left foot PLAN: - Xrays reviewed and discussed with the pt. All questions answered. - Toe spaces dispensed and instructed on how to use. - Heel lift given for limb length discrepancy. - Pt to RTC PRN. Instructed to call with any problems or questions. Libby Guillen DPM documented in this encounter Nursing Notes * Gayle Schmitz LPN - 09/30/2020 1:48 PM EST Pt presents for new visit, states R 4th and 5th toes are painful, feels it may be due to his calluses. Also has a pulling feeling on the bottom of his L foot, increasing over the past 6 months, sincebeginning a new job where he walks a lot on concrete. documented in this encounter Plan of Treatment Upcoming Encounters Date Type Specialty Care Team Description 12/01/2020 Office Visit Cardiology Kath Carlin PA-C [address] [facility] [place] [address] [phone] 12/22/2020 Imaging Radiology Pending Results Name Type Priority Associated Diagnoses Date /Time XR FOOT 3 OR MORE VIEWS Medical Imaging Routine Pain in both feet 09/30/2020 2:10 PM EST Health Maintenance Due Date Last Done Comments [...] of this encounter Visit Diagnoses Diagnosis Pain in both feet- Primary Pain in limb Metatarsalgia of left foot Enthesopathy of ankle and tarsus, unspecified Heloma molle Corns and callosities documented in this encounter Advance Directives Documents on File Type Date Recorded Patient High Worker Expl anation Advanced Directive Advanced Directive Advanced Directive Advanced Directive Advanced Directive Advanced Directive
--- OUTSIDE RECORDS SUMMARY | 2023-09-26 02:18 | External Medical Summary | Summary of Care ---
Author Name Unknown Organization [place] [address] Care Team Providers Care Diplomatic Interpreter/Translator Name Role Phone Farooq Rodríguez DO Primary Care Provider [phone] Reason for Visit * Reason Onset Date Comments Emergency Department Follow-Up 10/26/2020 Encounter Details Date Type Department Care Team Description 10/26/2020 Telephone Family Practice [facility] [address] [place] [address] Farooq Rodríguez DO [address] [place], [place] [id number] Emergency Department Follow-Up Allergies No Known Active Allergiesdocumented as of this encounter (statuses as of 10/26/2020) Medications Medication Sig Dispensed Refills Start Date [...] 400 Units by mouth daily. 0 Active [place]-3 Fatty Acids (OMEGA 3 500) 500 MG CAPS Take by mouth. 0 Active Azelastine HCl 0.1 % nasal sprayIndications:Damage Appraiser alison rhinitis USE 2 SPRAY(S) IN EACH [...] as of this encounter (statuses as of 10/26/2020) Active Problems Problem Noted Date Bradycardia 05/31/2020 [...] as of this encounter (statuses as of 10/26/2020) Resolved Problems Problem Noted Date Resolved Date Dyslipidemia, goal LDL below 100 06/01/2014 12/08/2015 Hypoactive thyroid 01/07/2013 12/11/2016 Bronchiectasis 04/18/2003 06/12/2017 documented as of this encounter (statuses as of 10/26/2020) Immunizations Name Administration Dates Next Due Pneumococcal [...] Telephone Encounter - Christen Salmon OSA - 10/26/2020 3:48 PM EST Appointment scheduled for 10/27/[address] Rodríguez. * Telephone Encounter - Chasity Schneider LPN - 10/26/2020 12:33 PM EST Needs follow up appt please. documented in this encounter Plan of Treatment Upcoming Encounters Date Type Specialty Care Team Description 10/27/2020 Office Visit Family Medicine Farooq Rodríguez, DO [address] [place] [address] [phone] 12/01/2020 Office Visit Cardiology Kath Carlin PA-C [address] [facility] [place] [address] [phone] 12/22/2020 Imaging Radiology Health Maintenance Due Date [...] Documents on File Type Date Recorded Patient Tech Writer Expl anation Advanced Directive Advanced Directive Advanced Directive Advanced Directive Advanced Directive Advanced Directive Advanced Directive
--- OUTSIDE RECORDS SUMMARY | 2023-09-26 02:18 | External Medical Summary | Summary of Care ---
Author Name Unknown Organization [place] [address] Care Team Providers Care Hall Tender Name Role Phone Farooq Rodríguez Primary Care Provider [phone] Encounter Details Date Type Department Care Team Description 09/02/2020 Scan Encounter Unspecified Department <No scans attached> Allergies No Known Active Allergiesdocumented as of this encounter (statuses as of 09/06/2020) Medications Medication Sig Dispensed Refills Start Date [...] (PROAIR HFA) 108 (90 BASE) MCG/ACT inhalerIndications:Ac [place] bronchitis, antibiotics not indicated Inhale 2 Puffs [...] 400 Units by mouth daily. 0 Active [place]-3 Fatty Acids (OMEGA 3 500) 500 MG CAPS Take by mouth. 0 Active Azelastine HCl 0.1 % nasal sprayIndications:Montessori Paraprofessional alison rhinitis USE 2 SPRAY(S) IN EACH [...] OF WATER 90 Tab 3 03/01/2020 Active potassium chloride ER 10 MEQ TBCR Take 1 tablet by mouth once daily 90 Tab 1 03/22/2020 Active atorvaSTATin (LIPITOR) 40 MG TabletIndications:CAD (coronary artery disease) Take 1 tablet by mouth once daily 90 Tab 3 04/26/2020 Active lisinopril 40 MG TabletIndications:HTN , goal below 140/90 Take 1 Tab by mouth daily. 90 Tab 3 06/21/2020 Active documented as of this encounter (statuses as of 09/06/2020) Active Problems Problem Noted Date Bradycardia 05/31/2020 [...] as of this encounter (statuses as of 09/06/2020) Resolved Problems Problem Noted Date Resolved Date Dyslipidemia, goal LDL below 100 06/01/2014 12/08/2015 Hypoactive thyroid 01/07/2013 12/11/2016 Bronchiectasis 04/18/2003 06/12/2017 documented as of this encounter (statuses as of 09/06/2020) Immunizations Name Administration Dates Next Due Pneumococcal [...] [address] [facility] [place] [address] 12/22/2020 Imaging Radiology Health Maintenance Due Date [...] Documents on File Type Date Recorded Patient Vending Mechanic Expl anation Advanced Directive Advanced Directive Advanced Directive Advanced Directive
--- OUTSIDE RECORDS SUMMARY | 2023-09-26 02:19 | External Medical Summary | Summary of Care ---
Author Name Unknown Organization [place] [address] Care Team Providers Care Psychotherapist Counselor Name Role Phone Farooq Rodríguez DO Primary Care Provider [phone] Reason for Visit * Reason Comments NEW PATIENT Referred by user [email or web address] on posterior right shoulder and one on right cheek.Noticed spot on right cheek about a year ago and getting bigger.Posterior shoulder for several years getting bigger also.Denies hx of skin ca.Would like full body skin check. * Evaluate & Treat - Unlimited Visits (Within 10 days (routine)) Status Reason Specialty Diagnoses / Procedures Referred By Contact Referred To Contact Pending Review Specialty Services Required Dermatology Diagnoses Abnormal skin growth Farooq Rodríguez, DO [address] [place] [address] Encounter Details Date Type Department Care Team Description 07/13/2020 Office Visit Dermatology [facility] [address] [place] [address] Randi Cancino MD [address] [place] [address] [phone] Epidermoid cyst*; Dermal nevus of face; Multiple melanocytic nevi; Solar lentiginosis; Screening exam for skin cancer Allergies No Known Allergiesdocumented as of this encounter (statuses as of 07/13/2020) Medications Medication Sig Dispensed Refills Start Date [...] BASE) MCG/ACT inhalerIndications:Ac [place] bronchitis, antibiotics not indicated Inhale 2 Puffs [...] 400 Units by mouth daily. 0 Active [place]-3 Fatty Acids (OMEGA 3 500) 500 MG CAPS Take by mouth. 0 Active Azelastine HCl 0.1 % nasal sprayIndications:Apparel Sales Leader alison rhinitis USE 2 SPRAY(S) IN EACH [...] as of this encounter (statuses as of 07/13/2020) Active Problems Problem Noted Date Bradycardia 05/31/2020 [...] as of this encounter (statuses as of 07/13/2020) Resolved Problems Problem Noted Date Resolved Date Dyslipidemia, goal LDL below 100 06/01/2014 12/08/2015 Hypoactive thyroid 01/07/2013 12/11/2016 Bronchiectasis 04/18/2003 06/12/2017 documented as of this encounter (statuses as of 07/13/2020) Immunizations Name Administration Dates Next Due Pneumococcal [...] file Not on file Not on file Travel History Travel Start Travel End No recent travel history carmella ilable. COVID-19 Exposure Response Date Recorded In the last month, have you been in contact with someone who was confirmed or suspected to have Coronavirus / COVID-19? No / Unsure 07/13/2020 2:35 PM EDT documented as of this encounter Patient Instructions * Patient Instructions* Randi Cancino MD - 07/13/2020 2:58 PM EDT Wound Care at home after a skin biopsy or excision 1. Please leave the dressing that was placed in clinic alone and dry for 24 hours after the procedure. A thick pressure dressing may be left in place up to 48 hours. 2. Remove the dressing daily and wash the area with mild soap and warm water. If the adhesive if difficult to remove, wet the adhesive for 5 minutes before removing from skin. This can be done at theend of a shower or bath. 3. Apply vaseline (white petrolatum or equivalent ointment)* to the wound and reapply a fresh bandage. Non-stick or telfa type dressing pads work the best. 4. Continue this process until the wound is healed or other instructions are provided in clinic. 5. Watch for signs of wound infection. Clear, yellow or bloody drainage on the bandage if normal, but should taper after the first 2-3 days. If there is a substantial increase in drainage, a foul odor, increasing pain, surrounding redness or swelling, or fever, please call clinic to be checked for wound infection. [facility] D[facility]at[facility] 6. If a sample of skin was taken for biopsy, you will receive a report either by phone or [employer] email (if you are enrolled and active in [facility] If you do not receive a report within several days, please inform us of the delay. * Vaseline or equivalent bland ointment is preferred by dermatology clinic. Topical antibiotic ointment is preferred by some patients for skin wounds, and can be used at the individuals discretion. There is a substantial risk of allergy to topical antibiotic ointments (double and triple antibiotic ointment containing neomycin or bacitracin) which manifests as an itchy red rash around the wound and can be mistaken for infection. documented in this encounter Progress Notes * Randi Cancino MD - 07/13/2020 2:38 PM EDT CC: Spots on face and shoulder Chief Complaint Patient presents with NEW PATIENT Referred by Dr.Newhouser [email or web address] on posterior right shoulder and one on right cheek.Noticed spot on right cheek about a year ago and getting bigger.Posterior shoulder for several years getting bigger also.Denies hx of skin ca.Would like full body skin check. Referred by: Farooq Rodríguez DO consult for lesion on right cheek and upper back of concern HPI: 60 year old male presents today for evaluation of a lesion of concern. Location: right posterior shoulder and right cheek Duration: About a year on cheek, several years on shoulder Associated symptoms: getting bigger Treatments attempted: none History of Skin cancer or precancer: none History of other skin disease: none ROS: Constitutional symptoms: No other systemic or constitutional symptoms. No additional skin complaints. Patient otherwise feels well. Other skin concerns: no Family History: no known family history of skin cancer MEDICATIONS: Current Outpatient Medications Medication Sig Dispense Refill lisinopril 40 MG Tablet Take 1 Tab by mouth daily. 90 Tab 3 atorvaSTATin (LIPITOR) 40 MG Tablet Take 1 tablet by mouth once daily 90 Tab 3 potassium chloride ER 10 MEQ TBCR Take 1 tablet by mouth once daily 90 Tab 1 levothyroxine (LEVOXYL) 75 MCG Tablet TAKE 1 [...] EACH NOSTRIL TWICE DAILY 90 mL 1 [place]-3 Fatty Acids (OMEGA 3 500) 500 MG [...] ASPIRIN 81 MG PO TABS One daily PAST MEDICAL HISTORY: Past Medical History: Diagnosis Date Bronchiectasis (HCC) Paralysis ([facility]) 1965 at age 5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 [place]icardial [place]2003 [place] [facility] [place]idal [place] without infection ALLERGIES: Patient has no known allergies. Exam: Well-appearing, alert and oriented male in no acute distress. Skin exam of scalp, face, eyelids, lips, ears, hair, neck, chest, abdomen, back, right upper extremity, left upper extremity, right hand, palm and nails, left hand, palms and nail, right lower extremity, left lower extremity, right foot, sole and nails, left foot, sole and nails completed and normal with the exception of: right lateral cheek 6mm flesh colored domed papule Right upper back 9 mm firm nodule with open comedone Scattered benign appearing lesions over examined skin including scattered benign and relatively monomorphic appearing melanocytic nevi and benign and uniform appearing brown macules and patches in sun exposed areas. Impression/Plan: 1. Epidermoid cyst Procedure Note Tangential Shave Biopsy: Discussed the risks, benefits and alternatives of tangential biopsy and verbal informed consent wasobtained. Questions were answered. Risks including infection, bleeding, scar and expected care wereoutlined. Patient understands that further treatment may be recommended for malignant or concerningpathology. The lesion in question was identified with skin marking pen and photographed. The site was prepped with alcohol and anesthetized with <1 mL 1% lidocaine with epi. A dermablade was used to tangentially remove partial visible lesion for intended diagnostic test and pathologic interpretation. Specimen in formalin to dermatopathology. Aluminum chloride used for hemostatis, dressing applied and wound instructions given. We will correspond regarding results and further treatment recommendations asappropriate. Site: A. Right upper back Size: A. 9mm 2. Dermal nevus Benign. Reassurance. 3. Multiple scattered benign appearing melanocytic nevi Monitor for change . 4. Skin cancer screening of full body today completed without any concerning lesions identified. Patient encouraged to protect skin from the sun and monitor for new or changing lesions. Return to dermatology as needed for new or concerning lesions. documented in this encounter Nursing Notes * Deana Conti, RN - 07/13/2020 2:44 PM EDT Patient identified by name and date of . Do you have any concerns about pain management for today's visit? No Living Will or Advance Directive for Health Care as noted on problem list. [facility] is a way you can talk to your provider online through e-mail. Would you like to sign up? I can activate it for you? ALREADY ACTIVE Chief Complaint Patient presents with NEW PATIENT Referred by Dr.Newhouser [email or web address] on posterior right shoulder and one on right cheek.Noticed spot on right cheek about a year ago and getting bigger.Posterior shoulder for several years getting bigger also.Denies hx of skin ca.Would like full body skin check. documented in this encounter Plan of Treatment Upcoming Encounters Date Type Specialty Care Team Description 12/01/2020 Office Visit Cardiology Kath Carlin PA-C [address] [facility] [place] [address] [phone] 12/22/2020 Imaging Radiology Scheduled Orders Name Type Priority Associated Diagnoses Orde r Schedule SURGICAL PATHOLOGY Pathology Routine Epidermoid cyst Ordered: 07/13/2020 SHAVE DERM LSN T/A/L .6-1.0CM Procedures Routine Epidermoid cyst Ordered: 07/13/2020 Health Maintenance Due Date Last Done Comments [...] as of this encounter Visit Diagnoses Diagnosis Epidermoid cyst- Primary Sebaceous cyst Dermal nevus of face Benign neoplasm of skin of other and unspecified parts of face Multiple melanocytic nevi Benign neoplasm of skin, site unspecified Solar lentiginosis Other dyschromia Screening exam for skin cancer Screening for malignant neoplasm of the skin documented in this encounter Advance Directives Documents on File Type Date Recorded Patient Gambling Box Person Expl anation Advanced Directive Advanced Directive Advanced Directive Advanced Directive
--- OUTSIDE RECORDS SUMMARY | 2023-09-26 02:19 | External Medical Summary | Summary of Care ---
Author Name Unknown Organization [facility] [place] [address] Care Team Providers Care Loop Puller Name Role Phone Farooq Rodríguez Primary Care Provider [phone] Reason for Visit * Reason Comments Blood Pressure Check Encounter Details Date Type Department Care Team Description 06/17/2020 Cardiac Studies Cardiac Studies, [facility] [address] [facility], Nurse Cardio [facility] 132 [place] [address] [phone] Arrived Allergies No Known Allergiesdocumented as of this encounter (statuses as of 06/17/2020) Medications Medication Sig Dispensed Refills Start Date End Date Status ASPIRIN 81 MG PO TABS One daily 0 Act natasha ZYRTEC ALLERGY 10 MG PO TABS one daily 0 Active ALBUTEROL SULFATE (2.5 MG/3ML) 0.083% IN [facility] one vial every 6 hours as needed [...] 400 Units by mouth daily. 0 Active [place]-3 Fatty Acids (OMEGA 3 500) 500 MG CAPS Take by mouth. 0 Active Azelastine HCl 0.1 % nasal sprayIndications:Autographer alison rhinitis USE 2 SPRAY(S) IN EACH [...] once daily 90 Tab 1 03/22/2020 Active lisinopril (PRINIVIL) 20 MG Tablet Take 1 tablet by mouth once daily 90 Tab 1 03/22/2020 Active atorvaSTATin (LIPITOR) 40 MG TabletIndications:CAD (coronary artery disease) Take 1 tablet by mouth once daily 90 Tab 3 04/26/2020 Active documented as of this encounter (statuses as of 06/17/2020) Active Problems Problem Noted Date Bradycardia 05/31/2020 [...] as of this encounter (statuses as of 06/17/2020) Resolved Problems Problem Noted Date Resolved Date Dyslipidemia, goal LDL below 100 06/01/2014 12/08/2015 Hypoactive thyroid 01/07/2013 12/11/2016 Bronchiectasis 04/18/2003 06/12/2017 documented as of this encounter (statuses as of 06/17/2020) Immunizations Name Administration Dates Next Due Pneumococcal [...] have Coronavirus / COVID-19? No / Unsure 06/17/2020 8:26 AM EDT documented as of this encounter Last Filed Vital Signs Vital Sign Reading Time Taken Comments Blood Pressure 130/80 06/17/2020 8:54 AM EDT Pulse 64 06/17/2020 8:49 AM EDT Temperature - - Respiratory Rate 16 06/17/2020 8:49 AM EDT Oxygen Saturation - - Inhaled Oxygen Concentration - - Weight - - Height - - Body Mass Index - - documented in this encounter Progress Notes * Kath Carlin PA-C - 06/17/2020 9:32 AM EDT BP Readings from Last 4 Encounters: 06/17/20 130/80 05/31/20 144/98 11/21/19 122/84 08/22/19 118/70 BP readings improved from recent office visit. No changes at this time. documented in this encounter Nursing Notes * Willian Ceron RN - 06/17/2020 8:54 AM EDT Pt here for BP check with echo to follow. 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 Right arm: BP 130/80 | Pulse 64 | Resp 16 Left arm: 138/88 Reports no changes to his meds or the way he is taking them. Pt feels fine, no rep[orted concerns. Willian Ceron, RN documented in this encounter Plan of Treatment Upcoming Encounters Date Type Specialty Care Team Description 07/13/2020 Office Visit [facility] [address] [facility] [address] [phone] 12/01/2020 Office Visit Cardiology Kath Carlin PA-C 132 [facility] [place] [address] [phone] Health Maintenance Due Date Last Done Comments [...] Documents on File Type Date Recorded Patient Thermodynamics Teacher Expl anation Advanced Directive Advanced Directive Advanced Directive Advanced Directive
--- OUTSIDE RECORDS SUMMARY | 2023-09-26 02:19 | External Medical Summary | Summary of Care ---
Author Name Unknown Organization [place] [address] Care Team Providers Care Preform Plate Maker Name Role Phone Kelly Mitchell DO Primary Care Provider [phone] Reason for Visit * Reason Comments eRx-Medication Refill Encounter Details Date Type Department Care Team Description 04/25/[address] [facility] [address] [place] [address] Kelly Mitchell [address] [place] [address] [phone] CAD (coronary artery disease) Allergies No Known Allergiesdocumented as of this encounter (statuses as of 04/26/2020) Medications Medication Sig Dispensed Refills Start Date [...] 400 Units by mouth daily. 0 Active [place]-3 Fatty Acids (OMEGA 3 500) 500 MG CAPS Take by mouth. 0 Acti ve Azelastine HCl 0.1 % nasal sprayIndications: Chronic rhinitis USE 2 SPRAY(S) IN EACH NOSTRIL TWICE DAILY 90 mL 1 04/03/2019 Active meclizine (ANTIVERT) 25 MG Tablet Take 1 Tab by mouth 3 times a day as needed for Dizziness. 30 Tab 3 08/22/2019 Active Additional Information Patient not taking. Reported on 03/15/2020 3:12 PM furosemide (LASIX) 40 MG Tablet TAKE 1 TABLET BY MOUTH ONCE DAILY 90 Tab 3 12/01/2019 Active spironolactone (ALDACTONE) 25 MG Tablet TAKE 1 TABLET BY MOUTH ONCE DAILY IN THE MORNING 90 Tab 3 02/02/2020 Active levothyroxine (LEVOXYL) 75 MCG TabletIndications :Hypothyroidism TAKE 1 TABLET BY MOUTH ONCE DAILY IN THE MORNING ON EMPTY STOMACH WITH FULL GLASS OF WATER 90 Tab 3 03/01/2020 Active potassium chloride ER 10 MEQ TBCR Take 1 tablet by mouth once daily 90 Tab 1 03/22/2020 Active lisinopril (PRINIVIL) 20 MG Tablet Take 1 tablet by mouth once daily 90 Tab 1 03/22/2020 Active atorvaSTATin (LIPITOR) 40 MG TabletIndications :CAD (coronary artery disease) Take 1 tablet by mouth once daily 90 Tab 3 04/26/2020 Active atorvaSTATin (LIPITOR) 40 MG TabletIndications :CAD (coronary artery disease) Take 1 tablet by mouth once daily 90 Tab 0 02/02/2020 0 Discontinued documented as of this encounter (statuses as of 04/26/2020) Active Problems Problem Noted Date Dilated aortic root 12/11/2016 Encounter for surveillance [...] as of this encounter (statuses as of 04/26/2020) Resolved Problems Problem Noted Date Resolved Date Dyslipidemia, goal LDL below 100 06/01/2014 12/08/2015 Hypoactive thyroid 01/07/2013 12/11/2016 Bronchiectasis 04/18/2003 06/12/2017 documented as of this encounter (statuses as of 04/26/2020) Immunizations Name Administration Dates Next Due Pneumococcal [...] End No recent travel history carmella ilable. documented as of this encounter Miscellaneous Notes * Telephone Encounter - Cathi Zhao [facility] - 04/26/2020 1:50 PM EDT Signed Prescriptions: Disp Refills atorvaSTATin (LIPITOR) 40 MG Tablet 90 Tab 3 Sig: Take 1 tablet by mouth once dailyAuthorizing Provider: KELLY MITCHELL User: CATHI ZHAO documented in this encounter Plan of Treatment Upcoming Encounters Date Type Specialty Care Team Description 05/31/2020 Office Visit Cardiology [facility] [address] 07/13/2020 Office Visit Dermatology Randi Cancino MD 200 [facility] [place] [facility] [place] [address] [phone] Health Maintenance Due Date Last Done Comments [...] 04/23/2019, 02/17/2019 Influenza Vaccine (FLU shot) Completed 12/2018, 07/20/2018, 08/03/2016, Additional history exists MENINGOCOCCAL (MENACTRA/MENVEO) Aged Out No longer eligible based on patient's age to complete this topic documented as of this encounter Implants Not on filedocumented as of this encounter Visit Diagnoses Diagnosis CAD (coronary artery disease) Coronary atherosclerosis of unspecified type of vessel, venetie or graft documented in this encounter Advance Directives Documents on File Type Date Recorded Patient Salesperson Jewelry Expl anation Advanced Directive Advanced Directive Advanced Directive Advanced Directive
--- OUTSIDE RECORDS SUMMARY | 2023-09-26 02:19 | External Medical Summary | Summary of Care ---
Author Name Unknown Organization [place] [address] Care Team Providers Care Farm Equipment Service Technician Name Role Phone AntolinFarooq roger Primary Care Provider [phone] Reason for Referral * Precert (Routine) Status Reason Specialty Diagnoses / Procedures Referred By Contact Referred To Contact Pending Review Precert Cardiac Studies Diagnoses Dilated aortic root (HCC) HTN, goal below 140/90 Procedures ECHO, COMPLETE (2D), TRANS-THORACIC Kath Carlin PA-C [address] [place] [address] Reason for Visit * Reason Comments Follow Up Encounter Details Date Type Department Care Team Description 05/31/2020 Office Visit Cardiology, [facility] [address] [place] [address] Kath Carlin PA-C [address] [facility] [place] [address] [phone] Dilated aortic root (HCC)*; HTN, goal below 140/90; Chronic diastolic congestive heart failure (HCC); Bradycardia Allergies No Known Allergiesdocumented as of this encounter (statuses as of 05/31/2020) Medications Medication Sig Dispensed Refills Start Date [...] 400 Units by mouth daily. 0 Active [place]-3 Fatty Acids (OMEGA 3 500) 500 MG CAPS Take by mouth. 0 Active Azelastine HCl 0.1 % nasal sprayIndications:Wagon Person alison rhinitis USE 2 SPRAY(S) IN EACH [...] as of this encounter (statuses as of 05/31/2020) Active Problems Problem Noted Date Bradycardia 05/31/2020 [...] as of this encounter (statuses as of 05/31/2020) Resolved Problems Problem Noted Date Resolved Date Dyslipidemia, goal LDL below 100 06/01/2014 12/08/2015 Hypoactive thyroid 01/07/2013 12/11/2016 Bronchiectasis 04/18/2003 06/12/2017 documented as of this encounter (statuses as of 05/31/2020) Immunizations Name Administration Dates Next Due Pneumococcal [...] Travel End No recent travel history carmella hamm. documented as of this encounter Last Filed Vital Signs Vital Sign Reading Time Taken Comments Blood Pressure 144/98 05/31/2020 7:50 AM EDT Pulse 56 05/31/2020 7:46 AM EDT Temperature - - Respiratory Rate 14 05/31/2020 7:46 AM EDT Oxygen Saturation - - Inhaled Oxygen Concentration - - Weight 106.4 kg (234 lb 8 oz) 05/31/2020 7:46 AM EDT Height - - Body Mass Index 35.66 11/21/2019 8:59 AM EST documented in this encounter Progress Notes * Kath Carlin PA-C - 05/31/2020 7:50 AM EDT 05/31/2020 Cardiology F/U: History of Present Illness: Mr. Dean is a 59 year old male who presents today for routine cardiology follow-up. Last clinic evaluation approx 6 months ago with the undersigned. 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 He was discharged on ibuprofen without recurrent symptoms. F/U echocardiograms demonstrated normal pericardium without pericardial effusion, normal EF, and no significant valvular disease with dilated aortic root at 4.5 cm, stable per echo in 11/2016, 2018, 2019. Other history significant for inflammatory pulmonary disease for which he follows with [facility], dyslipidemia, hepatic steatosis, hypertension, obesity, and chronic diastolic HF controlled on low dosefurosemide. Patient reported intermittent dizziness. He was found to be mildly bradycardic. He underwent outpatient cardiac monitor which demonstrated no significant Jose arrhythmias or pauses. Average heart rate was 65. Presents today feeling well. He denies recurrent dizziness or lightheadedness as noted at last visit. He denies recent chest pain or unusual shortness of breath. 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 He is walking average of 5 miles per night. He is down approximately 5 lb. He denies exertional symptoms. Blood pressure is elevated today on arrival. He reportedly took his medications several hours ago. Although he was up all night working and is not yet slept. He drink approximately 6 cups of coffee over the last 12 hours. He does not check his blood pressure at home. No chest pain, shortness of breath, palpitations, [...] nevi Z13.89 Dilated aortic root (HCC) I77.810 Social History Tobacco Use Smoking status: Never Smoker Smokeless tobacco: Former User Types: Chew Tobacco comment: quit Substance Use Topics Alcohol use: Yes Alcohol/week: 5.0 standard drinks Types: 6 12 oz of beer per week Drug use: No Vaping/E-Cigarette Use Vaping/E-Cigarette Substances Vaping/E-Cigarette Devices Review of patient's allergies indicates: No Known Allergies Current Outpatient Medications Medication Sig Dispense Refill atorvaSTATin (LIPITOR) 40 MG Tablet Take 1 tablet by mouth once daily 90 Tab 3 lisinopril (PRINIVIL) 20 MG Tablet Take 1 tablet by mouth once daily 90 Tab 1 potassium chloride ER 10 MEQ TBCR Take [...] BY MOUTH ONCE DAILY 90 Tab 3 Azelastine HCl 0.1 % nasal spray USE 2 SPRAY(S) IN EACH NOSTRIL TWICE DAILY 90 mL 1 [place]-3 Fatty Acids (OMEGA 3 500) 500 MG CAPS Take by mouth. vitamin e (AQUASOL E) 400 UNIT Capsule Take 400 Units by mouth daily. Mometasone Furo-Formoterol Fum (DULERA) 100-5 MCG/ACT Inhaler Inhale 1 Puff by mouth as needed. Multiple Vitamins-Minerals (MENS MULTIPLE VITAMIN/LYCOPENE) TABS Take by mouth daily. albuterol (PROAIR HFA) 108 (90 BASE) MCG/ACT inhaler Inhale 2 Puffs by mouth 4 times a day. 1 Inhaler 1 HM VITAMIN D3 2000 UNITS PO CAPS 1 CAPSULE DAILY ZYRTEC ALLERGY 10 MG PO TABS one daily ASPIRIN 81 MG PO TABS One daily meclizine (ANTIVERT) 25 MG Tablet Take 1 Tab by mouth 3 times a day as needed for Dizziness. 30 Tab3 SUMAtriptan (IMITREX) 50 MG Tablet TAKE ONE TABLET BY MOUTH ONE TIME ONLY,REPEAT AFTER TWO HOURS ASNEEDED MAX OF FOUR TABLETS 12 Tab 0 ALBUTEROL SULFATE (2.5 MG/3ML) 0.083% IN NEBU one vial every 6 hours as needed OBJECTIVE/PHYSICAL EXAMINATION: BP 144/98 | Pulse 56 | Resp 14 | Wt 234 lbs 8 oz (106.369kg) | BMI 35.66 kg/m | BSA 2.26 m Blood pressure my repeat 142/84 BP Readings from Last 4 Encounters: 05/31/20 144/98 11/21/19 122/84 08/22/19 118/70 05/08/19 102/60 Wt Readings from Last 3 Encounters: 05/31/20 106.4 kg (234 lb 8 oz) 11/21/19 108.1 kg (238 lb 4 oz) 08/22/19 108.2 kg (238 lb 9.6 oz) General: NAD. A&Ox3. Eyes: Conjunctiva are pink and non-injected, sclera clear Neck: No overt JVD. Chest: Normal respiratory effort Lungs: Clear to auscultation Cardiac Exam: RRR. No murmurs, rubs, or gallops Abdomen: Distended. Obese. +BS. Soft. Extremities: No edema Neuro: Grossly normal exam Psych: Appropriate affect and insight. DATA: Lipid Panel Results: LIPID PANEL WITH DIRECT [...] 7:57A 02/24/20 F Value: NOT APPLICABLE Outpatient cardiac monitor report reviewed dated November 2019: Duration [...] No pericardial effusion is noted. Echocardiogram in 2012 reviewed: There was normal sinus rhythm during the examination. The pericardium appears normal. No pericardial effusion is noted. Effusive-constrictive pericarditis is not present. The left ventricular wall motion is normal. The LV wall thickness is mildly increased (concentric). Qualitative LV ejection Fraction = 67%. No significant valvular disease is present. The left ventricular diastolic function is mildly abnormal (grade I). IMPRESSION and PLAN: 59 year old male 1. Hypertension - borderline uncontroleld today. 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 Bradycardia - asymptmatic. Stable. No signfiant pauses or bradyarrhtymias on monitor. 3. History of prior cardiac tamponade /effusion S/P pericardiocentesis in 2002- No recurrence per serial echocardiograms. Stable cardiovascular signs/symptoms 4. Chronic diastolic HF with intermittent edema - stable on current diuretic regimen. Currently well compensated. 5. Dyslipidemia - controlled. 6. Obesity - continued weight loss recommended. 7. Dilated aortic root, stable at 4.5 cm per echo 11/2016 and 2018. 8. Atypical chest pain, resolved. Negative DSE 11/2017 PLAN: Update echo prior to next visit. Nurse BP check at time of echo. Avoidance of excessive caffeine recommended. He is to continue current medications as listed above. No changes were made at today's visit. Recommend regular aerobic exercise. Wolverine goal would be minimum of 30 minutes done daily. Exercise can be done in divided time periods if needed. Told to avoid extremes in temperature. The patient agrees to the above plan and will call with additional questions or concerns. ER with all emergencies advised. Follow-up: Return in about 6 months (around 12/01/2020). | Check-out note: Schedule echo; Nurse BP check at time of echo )patient preference for timing); Kath Carlin PA-C Department of Cardiology This chart was completed in part utilizing [employer] Speech Voice Recognition Software. Grammatical errors, random [...] in this encounter Nursing Notes * Willian Ceron, RN - 05/31/2020 7:50 AM EDT Pt being seen in cardiology clinic today for routine 6 month follow up appt. Pt denies chest pain, SOB, palpitations and lightheadedness since last appt. 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 BP elevated today; pt reports he's had 4 cups of coffee trying to stay awake for this appt (sleeps during the day). Ed Jie RN documented in this encounter Plan of Treatment Upcoming Encounters Date Type Specialty Care Team Description 06/17/2020 Cardiac Studies Cardiac Studies Nurse Mac [facility]io Dianne [address] [place] [address] [phone] 06/17/2020 Cardiac Studies Cardiac Studies , [facility] [address] [place] [address] [phone] 07/13/2020 Office Visit Dermatology Randi Cancino MD [address] [place] [address] [phone] 12/01/2020 Office Visit Cardiology Kath Carlin PA-C [address] [place] [address] [phone] Scheduled Orders Name Type Priority Associated Diagnoses Orde r Schedule ECHO, COMPLETE (2D), TRANS-THORACIC Echocardiology Routine Dilated aortic root (HCC) HTN, goal below 140/90 Expected: 08/31/2020 (Approximate), Expires: 05/31/2021 Health Maintenance Due Date Last Done Comments [...] as of this encounter Visit Diagnoses Diagnosis Dilated aortic root (HCC)- Primary Thoracic aortic ectasia HTN, goal below 140/90 Unspecified essential hypertension Chronic diastolic congestive heart failure (HCC) Chronic diastolic heart failure Bradycardia Other specified cardiac dysrhythmias documented in this encounter Advance Directives Documents on File Type Date Recorded Patient Puppy Sitter Expl anation Advanced Directive Advanced Directive Advanced Directive Advanced Directive
--- OUTSIDE RECORDS SUMMARY | 2023-09-26 02:19 | External Medical Summary | Summary of Care ---
Author Name Unknown Organization [place] [address] Care Team Providers Care Application Development Liaison Name Role Phone MarcosFarooq Belle PEÑA Primary Care Provider [phone] Reason for Referral * Precert (Routine) Status Reason Specialty Diagnoses / Procedures Referred By Contact Referred To Contact Pending Review Precert Radiology Diagnoses Dilated aortic root (HCC) Procedures CT CHEST WO CONTRAST Kath Carlin PA-C [address] [employer] [address] [place] [address] Reason for Visit * Reason Comments Test Results Encounter Details Date Type Department Care Team Description 06/21/2020 Telephone Cardiology, [facility] [address] [place] [address] Kath Carlin PA-C [address] [place] [address] [phone] Test Results Allergies No Known Allergiesdocumented as of this encounter (statuses as of 06/21/2020) Medications Medication Sig Dispensed Refills Start Date [...] 400 Units by mouth daily. 0 Active [place]-3 Fatty Acids (OMEGA 3 500) 500 MG [...] 1 03/22/2020 Active atorvaSTATin (LIPITOR) 40 MG TabletIndications: CAD (coronary artery disease) Take 1 tablet by mouth once daily 90 Tab 3 04/26/2020 Active lisinopril 40 MG TabletIndications: HTN, goal below 140/90 Take 1 Tab by mouth daily. 90 Tab 3 06/21/2020 Active lisinopril (PRINIVIL) 20 MG Tablet Take 1 tablet by mouth once daily 90 Tab 1 03/22/2020 06/21/2020 Discontinued (Refill) documented as of this encounter (statuses as of 06/21/2020) Active Problems Problem Noted Date Bradycardia 05/31/2020 Dilated aortic root 12/11/2016 Encounter for surveillance of abnormal n reun 04/08/2015 Neoplasm of uncertain behavior of skin [...] as of this encounter (statuses as of 06/21/2020) Resolved Problems Problem Noted Date Resolved Date Dyslipidemia, goal LDL below 100 06/01/2014 12/08/2015 Hypoactive thyroid 01/07/2013 12/11/2016 Bronchiectasis 04/18/2003 06/12/2017 documented as of this encounter (statuses as of 06/21/2020) Immunizations Name Administration Dates Next Due Pneumococcal [...] AM EDT documented as of this encounter Miscellaneous Notes * Telephone Encounter - Anu Harvey OSA - 06/21/2020 1:05 PM EDT Spoke with pt. Pt is scheduled 12/22/[address] * Telephone Encounter - Lynn Holland RN - 06/21/2020 10:00 AM EDT Called, spoke with patient. Patient verbalizing understanding of given results/instruction per message below and will comply. Orders pended. * Telephone Encounter - Lynn Holland RN - 06/21/2020 9:55 AM EDT ----- Message from Kath Carlin PA-C sent at 06/18/2020 7:36 AM EDT ----- Echo results reviewed. Normal LV systolic function ejection fraction 55-59%. No significant valvular heart disease. The aortic root and proximal ascending aorta are moderately enlarged. (4.0/4.7 cm) Compared to last available study changes are noted as follows: Ascending aorta and aortic root sizes have increased slightly Recommend chest CT without contrast in 6 months for further evaluation of size of aortic root/ascending aorta and evaluate for continued change. While his BP had trended down from last office visit compared to nurse BP check the other day, given these changes, I would like to see BP lower. Recommend increasing lisinopril to 40 mg daily. (Currently taking 20 mg according to med list). BMP in 2 weeks with this change to check renal function/potassium levels documented in this encounter Plan of Treatment Upcoming Encounters Date Type Specialty Care Team Description 07/13/2020 Office Visit Dermatology [facility]i [facility] [address] [facility] [address] [phone] 12/01/2020 Office Visit Cardiology Kath Carlin PA-C [address] [place] [address] [phone] 12/22/2020 Imaging Radiology Scheduled Orders Name Type Priority Associated Diagnoses Orde r Schedule BASIC METAB PANEL, BMP Lab Routine HTN, goal below 140/90 Expected: 07/05/2020 (Approximate), Expires: 07/22/2021 CT CHEST WO CONTRAST Medical Imaging Routine Dilated aortic root (HCC) Expected: 12/22/2020 (Approximate), Expires: 06/21/2021 Health Maintenance Due Date Last Done Comments [...] goal below 140/90- Primary Unspecified essential hypertension Dilated aortic root (HCC) Thoracic aortic ectasia documented in this encounter Advance Directives Documents on File Type Date Recorded Patient Commuter Pilot Expl anation Advanced Directive Advanced Directive Advanced Directive Advanced Directive
--- OUTSIDE RECORDS SUMMARY | 2023-09-26 02:19 | External Medical Summary | Summary of Care ---
Author Name Unknown Organization [facility] Address [place] [address] Care Team Providers Care Ladle Builder Name Role Phone Farooq Rodríguez Primary Care Provider [phone] Reason for Visit * Reason Comments Cardiology Study Echo Encounter Details Date Type Department Care Team Description 06/17/2020 Cardiac Studies Cardiac Studies, [facility] [address] [facility] [place] [address] [address], Echo Tech3 132 [facility] [place] [address] [phone] Dilated aortic root (HCC)*; HTN, goal below 140/90 Allergies No Known Allergiesdocumented as of this encounter (statuses as of 06/17/2020) Medications Medication Sig Dispensed Refills Start Date End Date Status ASPIRIN 81 MG PO TABS One daily 0 Act natasha ZYRTEC ALLERGY 10 MG PO TABS one daily 0 Active ALBUTEROL SULFATE (2.5 MG/3ML) 0.083% IN [facility] one vial every 6 hours as needed 0 Active HM VITAMIN D3 2000 UNITS PO CAPSIndications:Vitam in D deficiency 1 CAPSULE DAILY 0 03/22/2014 Acti ve albuterol (PROAIR HFA) 108 (90 BASE) MCG/ACT inhalerIndications:Ac cheesh-na bronchitis, antibiotics not indicated Inhale 2 Puffs [...] 400 Units by mouth daily. 0 Active [place]-3 Fatty Acids (OMEGA 3 500) 500 MG CAPS Take by mouth. 0 Active Azelastine HCl 0.1 % nasal sprayIndications:Lumber Kiln Operator alison rhinitis USE 2 SPRAY(S) IN [...] AM EDT documented as of this encounter Progress Notes * Kary Newell TECH - 06/17/2020 9:39 AM EDT Echo completed today by vivien ambriz per provider order. documented in this encounter Plan of Treatment Upcoming Encounters Date Type Specialty Care Team Description 07/13/2020 Office Visit Dermatology Randi Cancino MD [address] [place] [facility] [place] [address] [phone] 12/01/2020 Office Visit Cardiology Kath Carlin PA-C 132 [facility] [place] [address] [phone] Health Maintenance Due Date Last Done Comments [...] on File Type Date Recorded Patient Supervisor Contact Lens Expl anation Advanced Directive Advanced Directive Advanced Directive Advanced Directive
--- OUTSIDE RECORDS SUMMARY | 2023-09-26 02:19 | External Medical Summary | Summary of Care ---
Author Name Unknown Organization [facility] Address [place] [address] Care Team Providers Care Chief Financial Officer Name Role Phone Farooq Rodríguez Primary Care Provider [phone] Reason for Visit * Reason Comments Blood Pressure Check Encounter Details Date Type Department Care Team Description 06/17/2020 Cardiac Studies Cardiac Studies, [facility] [address] [facility] [address] [facility], Nurse Cardio [facility] [address] [place] [address] [phone] Arrived Allergies No Known Allergiesdocumented as of this encounter (statuses as of 06/17/2020) Medications Medication Sig Dispensed Refills Start Date End Date Status ASPIRIN 81 MG PO TABS One daily 0 Act natasha ZYRTEC ALLERGY 10 MG PO TABS one daily 0 Active ALBUTEROL SULFATE (2.5 MG/3ML) 0.083% IN [facility] one vial every 6 hours as needed 0 Active HM VITAMIN D3 2000 UNITS PO CAPSIndications:Vitam in D deficiency 1 CAPSULE DAILY 0 03/22/2014 Acti ve albuterol (PROAIR HFA) 108 (90 BASE) MCG/ACT inhalerIndications:Ac [place] bronchitis, antibiotics not indicated Inhale 2 Puffs [...] 400 Units by mouth daily. 0 Active [place]-3 Fatty Acids (OMEGA 3 500) 500 MG CAPS Take by mouth. 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 Right arm: BP 130/80 | Pulse 64 | Resp 16 Left arm: 138/88 Reports no changes to his meds or the way he is taking them. Pt feels fine, no rep[orted concerns. Willian Ceron RN documented in this encounter Plan of Treatment Upcoming Encounters Date Type Specialty Care Team Description 07/13/2020 Office Visit Dermatology [facility] [address] [facility] [address] [phone] 12/01/2020 Office Visit Cardiology Kath Carlin PA-C 132 [facility] [place] [address] [phone] Health Maintenance Due Date Last Done Comments [...] Documents on File Type Date Recorded Patient Endoscopy Technican Expl anation Advanced Directive Advanced Directive Advanced Directive Advanced Directive
--- OUTSIDE RECORDS SUMMARY | 2023-09-26 02:20 | External Medical Summary | Summary of Care ---
Author Name Unknown Organization [place] [address] Care Team Providers Care Air Force Pilot Name Role Phone AntolinFarooq roger Primary Care Provider [phone] Encounter Details Date Type Department Care Team Description 03/17/2020 COVID-19 Recovery Outreach Family Practice [facility] [address] [place] [address] Samantha Soto PA-C 200 [place] [address] [phone] Allergies No Known Allergiesdocumented as of this encounter (statuses as of 04/14/2020) Medications Medication Sig Dispensed Refills Start Date [...] 400 Units by mouth daily. 0 Active [place]-3 Fatty Acids (OMEGA 3 500) 500 MG [...] THE MORNING 90 Tab 3 02/02/2020 Active atorvaSTATin (LIPITOR) 40 MG TabletIndications :CAD (coronary artery disease) Take 1 tablet by mouth once daily 90 Tab 0 02/02/2020 Active levothyroxine (LEVOXYL) 75 MCG TabletIndications :Hypothyroidism TAKE 1 TABLET BY MOUTH ONCE DAILY IN THE MORNING ON EMPTY STOMACH WITH FULL GLASS OF WATER 90 Tab 3 03/01/2020 Active lisinopril (PRINIVIL) 20 MG Tablet TAKE 1 TABLET BY MOUTH ONCE DAILY 90 Tab 3 03/24/2019 0 Discontinued potassium chloride ER 10 MEQ TBCR TAKE 1 TABLET BY MOUTH ONCE DAILY 90 Tab 1 09/29/2019 0 Discontinued documented as of this encounter (statuses as of 04/14/2020) Active Problems Problem Noted Date Dilated aortic [...] as of this encounter (statuses as of 04/14/2020) Resolved Problems Problem Noted Date Resolved Date Dyslipidemia, goal LDL below 100 06/01/2014 12/08/2015 Hypoactive thyroid 01/07/2013 12/11/2016 Bronchiectasis 04/18/2003 06/12/2017 documented as of this encounter (statuses as of 04/14/2020) Immunizations Name Administration Dates Next Due Pneumococcal [...] or suspected to have Coronavirus / COVID-19? Unable to assess 03/15/2020 9:16 AM EDT documented as of this encounter Plan of Treatment Upcoming Encounters Date Type Specialty Care Team Description 05/31/2020 Office Visit Cardiology Kath Carlin PA-C [address] [place] [address] [phone] 07/13/2020 Office Visit Dermatology [facility] [address] [phone] Health Maintenance Due Date Last Done Comments [...] Documents on File Type Date Recorded Patient Food Service Coordinator Expl anation Advanced Directive Advanced Directive Advanced Directive Advanced Directive
--- OUTSIDE RECORDS SUMMARY | 2023-09-26 02:20 | External Medical Summary | Summary of Care ---
Author Name Unknown Organization [place] [address] Care Team Providers Care Cook Supervisor Name Role Phone Farooq Rodríguez DO Primary Care Provider [phone] Reason for Visit * Reason Comments Appointment Canceled Encounter Details Date Type Department Care Team Description 03/03/2020 Telephone Family Practice [facility] [address] [place] [address] Farooq Rodríguez 200 [place] [address] [phone] Appointment Canceled Allergies No Known Allergiesdocumented as of this encounter (statuses as of 03/03/2020) Medications Medication Sig Dispensed Refills Start Date End Date Status ASPIRIN 81 MG PO TABS One daily 0 Act natasha ZYRTEC ALLERGY 10 MG PO TABS one daily 0 Active ALBUTEROL SULFATE (2.5 MG/3ML) 0.083% IN [facility] one vial every 6 hours as needed 0 Active HM VITAMIN D3 2000 UNITS PO CAPSIndications:Vitam in D deficiency 1 CAPSULE DAILY 0 03/22/2014 Acti ve albuterol (PROAIR HFA) 108 (90 BASE) MCG/ACT inhalerIndications:Ac gal[place] bronchitis, antibiotics not indicated Inhale 2 Puffs [...] 400 Units by mouth daily. 0 Active [place]-3 Fatty Acids (OMEGA 3 500) 500 MG CAPS Take by mouth. 0 Active lisinopril (PRINIVIL) 20 MG Tablet TAKE 1 TABLET BY MOUTH ONCE DAILY 90 Tab 3 03/24/2019 Active Azelastine HCl 0.1 % nasal sprayIndications:Automation Specialist alison rhinitis USE 2 SPRAY(S) IN EACH NOSTRIL TWICE DAILY 90 mL 1 04/03/2019 Active meclizine (ANTIVERT) 25 MG Tablet Take 1 Tab by mouth 3 times a day as needed for Dizziness. 30 Tab 3 08/22/2019 Active potassium chloride ER 10 MEQ TBCR TAKE 1 TABLET BY MOUTH ONCE DAILY 90 Tab 1 09/29/2019 Active furosemide (LASIX) 40 MG Tablet TAKE 1 TABLET BY MOUTH ONCE DAILY 90 Tab 3 12/01/2019 Active spironolactone (ALDACTONE) 25 MG Tablet TAKE 1 TABLET BY MOUTH ONCE DAILY IN THE MORNING 90 Tab 3 02/02/2020 Active atorvaSTATin (LIPITOR) 40 MG TabletIndications:CAD (coronary artery disease) Take 1 tablet by mouth once daily 90 Tab 0 02/02/2020 Active levothyroxine (LEVOXYL) 75 MCG TabletIndications:Hyp othyroidism TAKE 1 TABLET BY MOUTH ONCE DAILY IN THE MORNING ON EMPTY STOMACH WITH FULL GLASS OF WATER 90 Tab 3 03/01/2020 Active documented as of this encounter (statuses as of 03/03/2020) Active Problems Problem Noted Date Dilated aortic [...] as of this encounter (statuses as of 03/03/2020) Resolved Problems Problem Noted Date Resolved Date Dyslipidemia, goal LDL below 100 06/01/2014 12/08/2015 Hypoactive thyroid 01/07/2013 12/11/2016 Bronchiectasis 04/18/2003 06/12/2017 documented as of this encounter (statuses as of 03/03/2020) Immunizations Name Administration Dates Next Due Pneumococcal Conjugate Vacc, 13 Valent (Prevnar) 08/19/2010 Pneumococcal Conjugate Vacci ne, 7 Valent 10/15/2002 Pneumococcal Polysaccharide PPV23 (Pneumovax) 08/19/2010 Seasonal Influenza, Quadriva lent, No Preserve, IM 08/20/2019,08/03/2016 Seasonal Influenza, Trivalen t, with Preserve, 3yr & Above, Split 07/20/2018,08/03/2015,08/03/2014,08/06,08/14/2012,08/26/2009,09/03/2003 ,10/15/2002 TDAP (age 11 and older)(Adacel) 09/13/2009 documented as of this encounter Social History [...] have Coronavirus / COVID-19? No / Unsure 02/27/2020 12:43 PM EDT documented as of this encounter Miscellaneous Notes * Telephone Encounter - Jefferson Schwarz OSA - 03/03/2020 10:20 AM EDT Called patient to obtain telephonic consent. Left message on HIPAA compliant voicemail for patient.If agreeable, appointment should be changed to telephone visit ([id number] TELEPHONIC MEDICINE VISIT) and patient is instructed not to come into the office. Please add the phone number where patient can be reached during their appointment time in the display note. Pt can have the option for a video conference (visit type [phone]) instead of telephone call appt. documented in this encounter Plan of Treatment Upcoming Encounters Date Type Specialty Care Team Description 05/31/2020 Office Visit Cardiology Kath Carlin PA-C [address] [facility] [place] [address] [phone] 07/13/2020 Office Visit Dermatology Randi Cancino MD [address] [place] [address] [phone] Health Maintenance Due Date Last Done Comments Zoster Vaccines (1 of 2) 2012 *DEPRESSION SCREENING,ANNUAL FOR PTS 12 AND OVER [...] on patient's age to complete this topic Influenza Vaccine (FLU shot) Completed 12/2018, 07/20/2018, 08/03/2016, Additional history exists MENINGOCOCCAL (MENACTRA/MENVEO) Aged Out No longer eligible based on patient's age to complete this topic documented as of this encounter Implants Not on filedocumented as of this encounter Advance Directives Documents on File Type Date Recorded Patient Senior Financial Expl anation Advanced Directive Advanced Directive Advanced Directive Advanced Directive
--- OUTSIDE RECORDS SUMMARY | 2023-09-26 02:20 | External Medical Summary | Summary of Care ---
Author Name Unknown Organization [place] [address] Care Team Providers Care Vp Customer Service Name Role Phone AntolinFarooq roger Primary Care Provider [phone] Reason for Visit * Reason Comments Follow Up Encounter Details Date Type Department Care Team Description 03/15/2020 Telemedicine Family Practice [facility] [address] [place] [address] Samantha Soto PA-C 200 [place] [address] [phone] Anemia, unspecified type*; HTN, goal below 140/90; Acquired hypothyroidism Allergies No Known Allergiesdocumented as of this encounter (statuses as of 03/15/2020) Medications Medication Sig Dispensed Refills Start Date [...] 400 Units by mouth daily. 0 Active [place]-3 Fatty Acids (OMEGA 3 500) 500 MG CAPS Take by mouth. 0 Active lisinopril (PRINIVIL) 20 MG Tablet TAKE 1 TABLET BY MOUTH ONCE DAILY 90 Tab 3 03/24/2019 Active Azelastine HCl 0.1 % nasal sprayIndications:Ch ronic rhinitis USE 2 SPRAY(S) IN EACH NOSTRIL TWICE DAILY 90 mL 1 04/03/2019 Active meclizine (ANTIVERT) 25 MG Tablet Take 1 Tab by mouth 3 times a day as needed for Dizziness. 30 Tab 3 08/22/2019 Active Additional Information Patient not taking. Reported on 03/15/2020 3:12 PM potassium chloride ER 10 MEQ TBCR TAKE 1 TABLET BY MOUTH ONCE DAILY 90 Tab 1 09/29/2019 Active furosemide (LASIX) 40 MG Tablet TAKE 1 TABLET BY MOUTH ONCE DAILY 90 Tab 3 12/01/2019 Active spironolactone (ALDACTONE) 25 MG Tablet TAKE 1 TABLET BY MOUTH ONCE DAILY IN THE MORNING 90 Tab 3 02/02/2020 Active atorvaSTATin (LIPITOR) 40 MG TabletIndications:C AD (coronary artery disease) Take 1 tablet by mouth once daily 90 Tab 0 02/02/2020 Active levothyroxine (LEVOXYL) 75 MCG TabletIndications:H ypothyroidism TAKE 1 TABLET BY MOUTH ONCE DAILY IN THE MORNING ON EMPTY STOMACH WITH FULL GLASS OF WATER 90 Tab 3 03/01/2020 Active documented as of this encounter (statuses as of 03/15/2020) Active Problems Problem Noted Date Dilated aortic [...] as of this encounter (statuses as of 03/15/2020) Resolved Problems Problem Noted Date Resolved Date Dyslipidemia, goal LDL below 100 06/01/2014 12/08/2015 Hypoactive thyroid 01/07/2013 12/11/2016 Bronchiectasis 04/18/2003 06/12/2017 documented as of this encounter (statuses as of 03/15/2020) Immunizations Name Administration Dates Next Due Pneumococcal [...] as of this encounter Progress Notes * Samantha Soto PA-C - 03/15/2020 2:59 PM EDT After connecting to the patient via telephone, the patient was identified by name and date of . Patient was then informed that this was a telephone call only visit. The patient agreed to participate. Visit Disposition: Routine follow-up Total call duration was 22 minutes. CC: Follow Up HPI: Placido Dean is a 59 year old male who presents for routine follow up. Saw Cardiology. Doing well. Denies CP, SOB, PARK or palpitations. Recent Bronchitis and saw Clemente Lin [facility]. Placed on abx, prednisone, and albuterol nebulizer. 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 Diet: Eating a lot of chicken some rice and pasta. Limited red meat. Eating a lot of fruit and veg.Eating three meals a day. 44 pant size down to 42 pant size. No scale at home. Sleep: Doing well. Takes about an hour to unwind then goes to bed. Mood has been great. Denies SI or HI. Pt denies additional complaints. ROS: Please see HPI for pertinent positives and negatives, otherwise pt denies additional complaints. 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 Pericardial effusion 01/2003 idiopathic, at [facility] Pilonidal cyst without infection Past Surgical History: Procedure Laterality Date BRONCHOSCOPY W/ BRONCHIAL BIOPSY 2002 biopsy, open and bronchoscopy COLONOSCOPY, DIAGNOSTIC (RECTUM) 11/29/2012 COLONOSCOPY FLEXIBLE PROXIMAL DIAGNOSTIC performed by Cristy Dobbs DO at ENDOSCOPY [facility] COLONOSCOPY, DIAGNOSTIC (RECTUM) 11/26/2015 diverticulosis, repeat 10 yrs/COLONOSCOPY FLEXIBLE PROXIMAL DIAGNOSTIC performed by Cristy Dobbs DO at ENDOSCOPY [facility] DENTAL SURGERY PROCEDURE NEC Dental Surgery Procedure DRAINAGE OF HEART SAC 2002 [facility] REMOVAL OF WRIST LESION Social History Tobacco [...] Seasonal Influenza, Quadrivalent, No Preserve, IM 08/03/2016, 08/20/2019 Seasonal Influenza, Trivalent, with Preserve, 3yr & Above, Split 10/15/2002, 09/03/2003, 08/26/2009, 08/14/2012, 08/06/2013, 08/03/2014, 08/03/2015, 07/20/2018 TDAP (age 11 and older)(Adacel) 09/13/2009 Current Outpatient Medications Medication Sig Dispense Refill levothyroxine (LEVOXYL) 75 MCG Tablet TAKE 1 TABLET BY MOUTH ONCE DAILY IN THE MORNING ON EMPTY STOMACH WITH FULL GLASS OF WATER 90 Tab 3 atorvaSTATin (LIPITOR) 40 MG Tablet Take 1 tablet by mouth once daily 90 Tab 0 spironolactone (ALDACTONE) 25 MG Tablet TAKE 1 TABLET BY MOUTH ONCE DAILY IN THE MORNING 90 Tab 3 furosemide (LASIX) 40 MG Tablet TAKE 1 TABLET BY MOUTH ONCE DAILY 90 Tab 3 potassium chloride ER 10 MEQ TBCR TAKE 1 TABLET BY MOUTH ONCE DAILY 90 Tab 1 meclizine (ANTIVERT) 25 MG Tablet Take 1 Tab by mouth 3 times a day as needed for Dizziness. 30 Tab3 Azelastine HCl 0.1 % nasal spray USE 2 SPRAY(S) IN EACH NOSTRIL TWICE DAILY 90 mL 1 lisinopril (PRINIVIL) 20 MG Tablet TAKE 1 TABLET BY MOUTH ONCE DAILY 90 Tab 3 [place]-3 Fatty Acids (OMEGA 3 500) 500 MG [...] maintenance screenings were also reviewed. Physical exam: Can not obtain GENERAL: alert, no distress and cooperative Respiratory: No audible wheezing, stridor, coughing or heavy breathing noted. Assessment/Plan: Anemia, unspecified type (Primary) - CBC/DIFF WITH REFLEX WORKUP OF ANEMIA; Future; Expected date: 03/15/2020 - IRON SCREEN, INCLUDING TIBC; Future; Expected date: 03/15/2020 - FERRITIN; Future; Expected date: 03/15/2020 - FOLIC ACID; Future; Expected date: 03/15/2020 - PERIPHERAL BLOOD SMEAR; Future; Expected date: 03/15/2020 HTN, goal below 140/90 Acquired hypothyroidism Doing well with life style interventions. Continue diet and exercise Monitor BP Recheck CBC and causes for anemia. Anemia appears to be normocytic, normochromic. Can not rule out early micro or macro. Patient goals for plan of care were discussed. Follow Up: Recommend re-evaluation if not improving or if symptoms worsen. Samantha Soto PA-C Family Practice [facility] [address] [facility] [address] documented in this encounter Plan of Treatment Upcoming Encounters Date Type Specialty Care Team Description 05/31/2020 Office Visit Cardiology Kath Carlin PA-C [address] [place] [address] [phone] 07/13/2020 Office Visit Dermatology VanRandi miller MD [address] [facility] [place] [address] [phone] Scheduled Orders Name Type Priority Associated Diagnoses Orde r Schedule CBC/DIFF WITH REFLEX WORKUP OF ANEMIA Lab Routine Anemia, unspecified type Expected: 03/15/2020 (Approximate), Expires: 03/15/2021 IRON SCREEN, INCLUDING TIBC Lab Routine Anemia, unspecified type Expected: 03/15/2020 (Approximate), Expires: 03/15/2021 FERRITIN Lab Routine Anemia, unspecified type Expected: 03/15/2020 (Approximate), Expires: 03/15/2021 FOLIC ACID Lab Routine Anemia, unspecified type Expected: 03/15/2020 (Approximate), Expires: 03/15/2021 PERIPHERAL BLOOD SMEAR Pathology Routine Anemia, unspecified type Expected: 03/15/2020 (Approximate), Expires: 03/15/2021 Health Maintenance Due Date Last Done Comments [...] as of this encounter Visit Diagnoses Diagnosis Anemia, unspecified type- Primary HTN, goal below 140/90 Unspecified essential hypertension Acquired hypothyroidism Unspecified hypothyroidism documented in this encounter Advance Directives Documents on File Type Date Recorded Patient Emergency Room Orderly Expl anation Advanced Directive Advanced Directive Advanced Directive Advanced Directive
--- OUTSIDE RECORDS SUMMARY | 2023-09-26 02:20 | External Medical Summary | Summary of Care ---
Author Name Unknown Organization [place] [address] Care Team Providers Care Leather Goods I Assembler Name Role Phone Kelly Mitchell Primary Care Provider [phone] Reason for Visit * Reason Comments eRx-Medication Refill Encounter Details Date Type Department Care Team Description 03/22/2020 Refill Family Practice [facility] 200 [place] [address] Fabian Du III, MD 200 [place] [address] [phone] Allergies No Known Allergiesdocumented as of this encounter (statuses as of 03/22/2020) Medications Medication Sig Dispensed Refills Start Date End Date Status ASPIRIN 81 MG PO TABS One daily 0 Active ZYRTEC ALLERGY 10 MG PO TABS one daily 0 Active ALBUTEROL SULFATE (2.5 MG/3ML) 0.083% IN [facility] one vial every 6 hours as [...] 400 Units by mouth daily. 0 Active [place]-3 Fatty Acids (OMEGA 3 500) 500 MG [...] 03/22/2020 Active lisinopril (PRINIVIL) 20 MG Tablet TAKE 1 TABLET BY MOUTH ONCE DAILY 90 Tab 3 03/24/2019 0 Discontinued potassium chloride ER 10 MEQ TBCR TAKE 1 TABLET BY MOUTH ONCE DAILY 90 Tab 1 09/29/2019 0 Discontinued documented as of this encounter (statuses as of 03/22/2020) Active Problems Problem Noted Date Dilated aortic [...] as of this encounter (statuses as of 03/22/2020) Resolved Problems Problem Noted Date Resolved Date Dyslipidemia, goal LDL below 100 06/01/2014 12/08/2015 Hypoactive thyroid 01/07/2013 12/11/2016 Bronchiectasis 04/18/2003 06/12/2017 documented as of this encounter (statuses as of 03/22/2020) Immunizations Name Administration Dates Next Due Pneumococcal [...] encounter Miscellaneous Notes * Telephone Encounter - Joseph Kay [facility] - 03/22/2020 12:35 PM EDT Signed Prescriptions: Disp Refills potassium chloride ER 10 MEQ TBCR 90 Tab 1 Sig: Take 1 tablet by mouth once daily Authorizing Provider: KELLY MITCHELL Ordering User: JOSEPH KAY lisinopril (PRINIVIL) 20 MG Tablet 90 Tab 1 Sig: Take 1 tablet by mouth once daily Authorizing Provider: KELLY MITCHELL Ordering User: JOSEPH KAY * Telephone Encounter - Joseph Kay [facility] - 03/22/2020 12:35 PM EDT Protocol met. Refills sent to pharmacy. 90 days with 1 refill given Thanks and have a great day, Joseph Kay Clinical Pharmacist Pharmacy Refill Call Center 03/22/2020, 12:35 PM documented in this encounter Plan of Treatment Upcoming Encounters Date Type Specialty Care Team Description 05/31/2020 Office Visit Cardiology Kath Carlin PA-C [address] [facility] [place] [address] 07/13/2020 Office Visit Dermatology Randi Cancino MD [address] [place] [address] [phone] Health Maintenance Due Date Last Done Comments [...] Documents on File Type Date Recorded Patient Roof Bolting Coal Miner Expl anation Advanced Directive Advanced Directive Advanced Directive Advanced Directive
--- OUTSIDE RECORDS SUMMARY | 2023-09-26 02:20 | External Medical Summary | Summary of Care ---
Author Name Unknown Organization [place] [address] Care Team Providers Care Pharmacy District Manager Name Role Phone Farooq Rodríguez DO Primary Care Provider [phone] Reason for Visit * Reason Comments Appointment Canceled Encounter Details Date Type Department Care Team Description 03/12/2020 Telephone Family Practice [facility] [address] [place] [address] Farooq Rodríguez 200 [place] [address] [phone] Appointment Canceled Allergies No Known Allergiesdocumented as of this encounter (statuses as of 03/12/2020) Medications Medication Sig Dispensed Refills Start Date End Date Status ASPIRIN 81 MG PO TABS One daily 0 Act natasha ZYRTEC ALLERGY 10 MG PO TABS one daily 0 Active ALBUTEROL SULFATE (2.5 MG/3ML) 0.083% IN [facility] one vial every 6 hours as needed 0 Active HM VITAMIN D3 2000 UNITS PO CAPSIndications:Vitam in D deficiency 1 CAPSULE DAILY 0 03/22/2014 Acti ve albuterol (PROAIR HFA) 108 (90 BASE) MCG/ACT inhalerIndications:Ac [place] bronchitis, antibiotics not indicated Inhale 2 Puffs [...] 400 Units by mouth daily. 0 Active [place]-3 Fatty Acids (OMEGA 3 500) 500 MG CAPS Take by mouth. 0 Active lisinopril (PRINIVIL) 20 MG Tablet TAKE 1 TABLET BY MOUTH ONCE DAILY 90 Tab 3 03/24/2019 Active Azelastine HCl 0.1 % nasal sprayIndications:Chip Loft Worker alison rhinitis USE 2 SPRAY(S) IN EACH [...] as of this encounter (statuses as of 03/12/2020) Active Problems Problem Noted Date Dilated aortic [...] as of this encounter (statuses as of 03/12/2020) Resolved Problems Problem Noted Date Resolved Date Dyslipidemia, goal LDL below 100 06/01/2014 12/08/2015 Hypoactive thyroid 01/07/2013 12/11/2016 Bronchiectasis 04/18/2003 06/12/2017 documented as of this encounter (statuses as of 03/12/2020) Immunizations Name Administration Dates Next Due Pneumococcal [...] have Coronavirus / COVID-19? Unable to assess 03/12/2020 2:36 PM EDT documented as of this encounter Miscellaneous Notes * Telephone Encounter - Jefferson Schwarz OSA - 03/12/2020 2:38 PM EDT Called and left message on HIPAA compliant voicemail for patient changing their telephonic appointment on 03/15/20 at 3:40pm with Dr. Farooq Rodríguez to 03/15/20 at 3:30pm with Samantha Soto. documented in this encounter Plan of Treatment Upcoming Encounters Date Type Specialty Care Team Description 03/15/2020 Telemedicine Family Medicine Samantha Soto PA-C [address] [place] [address] [phone] 05/31/2020 Office Visit Cardiology Kath Carlin PA-C [address] [facility] [place] [address] [phone] 07/13/2020 Office Visit Dermatology Randi Cancino MD [address] [place] [address] [phone] Health Maintenance Due Date Last Done Comments [...] Documents on File Type Date Recorded Patient Leather Belt Maker Expl anation Advanced Directive Advanced Directive Advanced Directive Advanced Directive
--- OUTSIDE RECORDS SUMMARY | 2023-09-26 02:20 | External Medical Summary | Summary of Care ---
Author Name Unknown Organization [place] [address] Care Team Providers Care Car Greaser Name Role Phone AntolinFarooq roger Primary Care Provider [phone] Encounter Details Date Type Department Care Team Description 03/17/2020 COVID-19 Recovery Outreach Family Practice [facility] [address] [place] [address] Samantha Soto PA-C [address] [place] [address] [phone] Allergies No Known Allergiesdocumented as of this encounter (statuses as of 03/17/2020) Medications Medication Sig Dispensed Refills Start Date [...] 400 Units by mouth daily. 0 Active [place]-3 Fatty Acids (OMEGA 3 500) 500 MG [...] as of this encounter (statuses as of 03/17/2020) Active Problems Problem Noted Date Dilated aortic [...] as of this encounter (statuses as of 03/17/2020) Resolved Problems Problem Noted Date Resolved Date Dyslipidemia, goal LDL below 100 06/01/2014 12/08/2015 Hypoactive thyroid 01/07/2013 12/11/2016 Bronchiectasis 04/18/2003 06/12/2017 documented as of this encounter (statuses as of 03/17/2020) Immunizations Name Administration Dates Next Due Pneumococcal [...] Carlin PA-C [address] [place] [address] [phone] 07/13/2020 Office Visit Dermatology Randi Cancino MD [address] [place] [address] [phone] Health Maintenance Due Date Last Done Comments [...] Documents on File Type Date Recorded Patient Customer Experience Specialist Expl anation Advanced Directive Advanced Directive Advanced Directive Advanced Directive
--- OUTSIDE RECORDS SUMMARY | 2023-09-26 02:20 | External Medical Summary | Summary of Care ---
Author Name Unknown Organization [place] [address] Care Team Providers Care Residential Sales Consultant Name Role Phone Farooq Rodríguez DO Primary Care Provider [phone] Encounter Details Date Type Department Care Team Description 04/20/2020 Orders Only Outcomes Research Department [address] [place] [address] Monster Riddle CHRA [employer] Research Other*[id number] Allergies No Known Allergiesdocumented as of this encounter (statuses as of 04/20/2020) Medications Medication Sig Dispensed Refills Start Date End Date Status ASPIRIN 81 MG PO TABS One daily 0 Active ZYRTEC ALLERGY 10 MG PO TABS one daily 0 Active ALBUTEROL SULFATE (2.5 MG/3ML) 0.083% IN [facility] one vial every 6 hours [...] 400 Units by mouth daily. 0 Active [place]-3 Fatty Acids (OMEGA 3 500) 500 MG [...] once daily 90 Tab 1 03/22/2020 Active documented as of this encounter (statuses as of 04/20/2020) Active Problems Problem Noted Date Dilated aortic [...] as of this encounter (statuses as of 04/20/2020) Resolved Problems Problem Noted Date Resolved Date Dyslipidemia, goal LDL below 100 06/01/2014 12/08/2015 Hypoactive thyroid 01/07/2013 12/11/2016 Bronchiectasis 04/18/2003 06/12/2017 documented as of this encounter (statuses as of 04/20/2020) Immunizations Name Administration Dates Next Due Pneumococcal [...] carmella ilable. documented as of this encounter Plan of Treatment Upcoming Encounters Date Type Specialty Care Team Description 05/31/2020 Office Visit Cardiology Kath Carlni PA-C [address] [facility] [place] [address] [phone] 07/13/2020 Office Visit Dermatology Randi Cancino MD [address] [facility] [place] [address] [phone] Scheduled Orders Name Type Priority Associated Diagnoses Orde r Schedule MYCODE SUBSEQUENT ADULT Lab Routine My[facility] Research Other*[id number] Every 6 Months for 2 Occurrences starting 04/20/2020 until 05/10/2021 Health Maintenance Due Date Last Done Comments [...] this encounter Visit Diagnoses Diagnosis My[facility] Research Other*[id number] documented in this encounter Advance Directives Documents on File Type Date Recorded Patient Cst Expl anation Advanced Directive Advanced Directive Advanced Directive Advanced Directive
--- OUTSIDE RECORDS SUMMARY | 2023-09-26 02:21 | External Medical Summary | Summary of Care ---
Author Name Unknown Organization [place] [address] Care Team Providers Care Butt Presser Name Role Phone Kelly Mitchell DO Primary Care Provider [phone] Reason for Visit * Reason Comments eRx-Medication Refill Encounter Details Date Type Department Care Team Description 02/01/2020 Refill Family Practice [facility] [address] [place] [address] Kelly Mitchell DO 200 [place] [address] [phone] CAD (coronary artery disease) Allergies No Known Allergiesdocumented as of this encounter (statuses as of 02/04/2020) Medications Medication Sig Dispensed Refills Start Date [...] 400 Units by mouth daily. 0 Active [place]-3 Fatty Acids (OMEGA 3 500) 500 MG CAPS Take by mouth. 0 Active levothyroxine (LEVOXYL) 75 MCG TabletIndications: Hypothyroidism TAKE 1 TABLET BY MOUTH ONCE DAILY IN THE MORNING ON EMPTY STOMACH WITH FULL GLASS OF WATER 90 Tab 3 03/03/2019 Active lisinopril (PRINIVIL) 20 MG Tablet TAKE 1 TABLET BY MOUTH ONCE DAILY 90 Tab 3 03/24/2019 Active Azelastine HCl 0.1 % nasal sprayIndications:C [...] 3 02/02/2020 Active atorvaSTATin (LIPITOR) 40 MG TabletIndications: CAD (coronary artery disease) Take 1 tablet by mouth once daily 90 Tab 0 02/02/2020 Active atorvaSTATin (LIPITOR) 40 MG TabletIndications: CAD (coronary artery disease) Take 1 Tab by mouth daily. 90 Tab 3 02/07/2019 02/02/2020 Discontinued documented as of this encounter (statuses as of 02/04/2020) Active Problems Problem Noted Date Dilated aortic [...] as of this encounter (statuses as of 02/04/2020) Resolved Problems Problem Noted Date Resolved Date Dyslipidemia, goal LDL below 100 06/01/2014 12/08/2015 Hypoactive thyroid 01/07/2013 12/11/2016 Bronchiectasis 04/18/2003 06/12/2017 documented as of this encounter (statuses as of 02/04/2020) Immunizations Name Administration Dates Next Due Pneumococcal [...] encounter Miscellaneous Notes * Telephone Encounter - Ailyn Murdock scientist engineer - 02/04/2020 9:06 AM EDT Received message from [facility] regarding patient needing labs. Placed call to patient to advise. Left message on voicemail advising of required labs Ailyn Landers Mathieu [facility] Telepharm[facility] [phone] 02/04/2020,9:06 AM * Telephone Encounter - Coleman Dias [facility] - 02/02/2020 11:33 AM EDT Signed Prescriptions: Disp Refills atorvaSTATin (LIPITOR) 40 MG Tablet 90 Tab 0 Sig: Take 1 tablet by mouth once daily Authorizing Provider: KELLY MITCHELL Ordering User: COLEMAN DIAS * Telephone Encounter - Coleman Dias [facility] - 02/02/2020 11:32 AM EDT Provided 90 days supply with 0 refill until upcoming appointment. Per refill protocol patient required to have Lipid panel on file within past year. Lab work ordered (AMP report and protocol medications checked). Please contact patient to advise of labs. Patient is required to fast for labs. Patient may still have water and regular medications. Advise to obtain labs after his scheduled office visit. Thank You, Coleman Dias [facility] Clinical Pharmacist Telepharmacy 02/02/2020, 11:33 AM documented in this encounter Plan of Treatment Upcoming Encounters Date Type Specialty Care Team Description 03/03/2020 Office Visit Dermatology Randi Cancino MD [address] [place] [address] [address] [phone] 03/05/2020 Office Visit Family Medicine Kelly Mitchell, [address] [address] [phone] 05/31/2020 Office Visit Cardiology Kath Carlin PA-C [address] [place] [address] [phone] Scheduled Orders Name Type Priority Associated Diagnoses Orde r Schedule LIPID PANEL WITH DIRECT LDL IF TRIGLYCERIDE IS ELEVATED Lab Routine CAD (coronary artery disease) Expected: 02/02/2020 (Approximate), Expires: 02/01/2021 Health Maintenance Due Date Last Done Comments Zoster Vaccines (1 of 2) 2012 *DEPRESSION SCREENING,ANNUAL FOR PTS 12 AND OVER 07/22/2019 DTaP,Tdap,and Td Vaccines (2 - Td) 09/13/2019 09/13/2009 DIABETES SCREEN EVERY 3 YRS-AGE 45 AND ABOVE 11/21/2022 11/21/2019, 08/22/2019, 11/21/2018, Additional history exists LIPID SCREEN EVERY 5 YRS-MEN AGE 35-75 01/14/2024 01/14/2019, 11/21/2018, 12/24/2017, Additional history exists Pneumococcal Vaccine: Pediatrics (0 [...] Coronary atherosclerosis of unspecified type of vessel, sioux or graft documented in this encounter Advance Directives Documents on File Type Date Recorded Patient Box Spinner Expl anation Advanced Directive Advanced Directive Advanced Directive Advanced Directive
--- OUTSIDE RECORDS SUMMARY | 2023-09-26 02:21 | External Medical Summary | Summary of Care ---
Author Name Unknown Organization [place] [address] Care Team Providers Care Criminal Investigator Customs Name Role Phone Farooq Rodríguez Primary Care Provider [phone] Reason for Visit * Reason Comments Appointment Encounter Details Date Type Department Care Team Description 02/27/2020 Telephone Dermatology [facility] [address] [place], [place] [address] Randi Cancino MD 200 [place] [address] [phone] Appointment Allergies No Known Allergiesdocumented as of this encounter (statuses as of 02/27/2020) Medications Medication Sig Dispensed Refills Start Date [...] 400 Units by mouth daily. 0 Active [place]-3 Fatty Acids (OMEGA 3 500) 500 MG CAPS Take by mouth. 0 Active levothyroxine (LEVOXYL) 75 MCG TabletIndications:Hyp othyroidism TAKE 1 TABLET BY MOUTH ONCE DAILY IN THE MORNING ON EMPTY STOMACH WITH FULL GLASS OF WATER 90 Tab 3 03/03/2019 Active lisinopril (PRINIVIL) 20 MG Tablet TAKE 1 TABLET BY MOUTH ONCE DAILY 90 Tab 3 03/24/2019 Active Azelastine HCl 0.1 % nasal sprayIndications:Secretary Specialist alison rhinitis USE 2 SPRAY(S) IN [...] once daily 90 Tab 0 02/02/2020 Active documented as of this encounter (statuses as of 02/27/2020) Active Problems Problem Noted Date Dilated aortic [...] as of this encounter (statuses as of 02/27/2020) Resolved Problems Problem Noted Date Resolved Date Dyslipidemia, goal LDL below 100 06/01/2014 12/08/2015 Hypoactive thyroid 01/07/2013 12/11/2016 Bronchiectasis 04/18/2003 06/12/2017 documented as of this encounter (statuses as of 02/27/2020) Immunizations Name Administration Dates Next Due Pneumococcal [...] encounter Miscellaneous Notes * Telephone Encounter - Marly Moss LPN - 02/27/2020 3:55 PM EDT Appointment rescheduled for 07/13/2020 * Telephone Encounter - Tina Rodriges OSA - 02/27/2020 12:26 PM EDT Called patient, left message to return call to reschedule appointment with Dr. Cancino. I cancelledApril appointment due to covid-19 virus and asked if patient can send photos after he sets up [employer] account. Otherwise, may rescheduled to first available with Dr. Cancino in June and place on wait list. documented in this encounter Plan of Treatment Upcoming Encounters Date Type Specialty Care Team Description 03/05/2020 Office Visit Family Medicine Farooq Rodríguez, [address] [place] [address] [phone] 05/31/2020 Office Visit Cardiology Kath Carlin PA-C [address] [place] [address] [phone] 07/13/2020 Office Visit Dermatology Randi Cancino MD [address] [place] [address] [phone] Health Maintenance Due Date Last Done Comments [...] Documents on File Type Date Recorded Patient Information Systems Operator Expl anation Advanced Directive Advanced Directive Advanced Directive Advanced Directive
--- OUTSIDE RECORDS SUMMARY | 2023-09-26 02:21 | External Medical Summary | Summary of Care ---
Author Name Unknown Organization [place] [address] Care Team Providers Care Yield Engineer Name Role Phone Farooq Rodríguez DO Primary Care Provider [phone] Reason for Visit * Reason Comments Test Results Lab Encounter Details Date Type Department Care Team Description 02/24/2020 Telephone Pharmacy Call Center [address] [facility] [place] [address] Zabrina Dias, [facility] [address] [place] [address] Test Results Lab Allergies No Known Allergiesdocumented as of this encounter (statuses as of 02/24/2020) Medications Medication Sig Dispensed Refills Start Date [...] (PROAIR HFA) 108 (90 BASE) MCG/ACT inhalerIndications:Ac [place] bronchitis, antibiotics not indicated Inhale 2 Puffs [...] 400 Units by mouth daily. 0 Active [place]-3 Fatty Acids (OMEGA 3 500) 500 MG [...] 03/24/2019 Active Azelastine HCl 0.1 % nasal sprayIndications:Scientific Programmer Analyst alison rhinitis USE 2 SPRAY(S) IN EACH [...] as of this encounter (statuses as of 02/24/2020) Active Problems Problem Noted Date Dilated aortic [...] as of this encounter (statuses as of 02/24/2020) Resolved Problems Problem Noted Date Resolved Date Dyslipidemia, goal LDL below 100 06/01/2014 12/08/2015 Hypoactive thyroid 01/07/2013 12/11/2016 Bronchiectasis 04/18/2003 06/12/2017 documented as of this encounter (statuses as of 02/24/2020) Immunizations Name Administration Dates Next Due Pneumococcal [...] encounter Miscellaneous Notes * Telephone Encounter - Zabrina Dias RPh - 02/24/2020 1:28 PM EDT Tried contacting patient to advise Lipid panel is normal. No voice mail to leave message. Thank You, Zabrina Dias [facility] Clinical Pharmacist Telepharmacy 02/24/2020, 1:30 PM documented in this encounter Plan of Treatment Upcoming Encounters Date Type Specialty Care Team Description 03/03/2020 Office Visit Dermatology Randi Cancino MD [address] [facility] [place] [address] [phone] 03/05/2020 Office Visit Family Medicine Farooq Rodríguez DO [address] [place] [address] [phone] 05/31/2020 Office Visit Cardiology Kath Carlin PA-C [address] [facility] [place] [address] [phone] Health Maintenance Due Date Last Done Comments [...] Documents on File Type Date Recorded Patient Wedding Decorator Expl anation Advanced Directive Advanced Directive Advanced Directive Advanced Directive
--- OUTSIDE RECORDS SUMMARY | 2023-09-26 02:21 | External Medical Summary | Summary of Care ---
Author Name Unknown Organization [place] [address] Care Team Providers Care Civil Geotechnical Engineer Name Role Phone Farooq Rodríguez Primary Care Provider [phone] Reason for Visit * Reason Comments eRx-Medication Refill Encounter Details Date Type Department Care Team Description 02/01/2020 Refill Family Practice [facility] 200 [place] [address] Dayanna Gómez III, MD 200 [place] [address] [phone] Allergies No Known Allergiesdocumented as of this encounter (statuses as of 02/02/2020) Medications Medication Sig Dispensed Refills Start Date [...] 400 Units by mouth daily. 0 Active [place]-3 Fatty Acids (OMEGA 3 500) 500 MG [...] daily. 90 Tab 3 02/07/2019 02/02/2020 Discontinued spironolactone (ALDACTONE) 25 MG Tablet TAKE 1 TABLET BY MOUTH ONCE DAILY IN THE MORNING 90 Tab 1 08/04/2019 02/02/2020 Discontinued documented as of this encounter (statuses as of 02/02/2020) Active Problems Problem Noted Date Dilated aortic [...] as of this encounter (statuses as of 02/02/2020) Resolved Problems Problem Noted Date Resolved Date Dyslipidemia, goal LDL below 100 06/01/2014 12/08/2015 Hypoactive thyroid 01/07/2013 12/11/2016 Bronchiectasis 04/18/2003 06/12/2017 documented as of this encounter (statuses as of 02/02/2020) Immunizations Name Administration Dates Next Due Pneumococcal [...] encounter Miscellaneous Notes * Telephone Encounter - Coleman Qiu [facility] - 02/02/2020 11:32 AM EDT Signed Prescriptions: Disp Refills spironolactone (ALDACTONE) 25 MG Tablet 90 Tab 3 Sig: TAKE 1 TABLET BY MOUTH ONCE DAILY IN THE MORNINGAuthorizing Provider: DAYANNA GÓMEZ III User: COLEMAN QIU documented in this encounter Plan of Treatment Upcoming Encounters Date Type Specialty Care Team Description 03/03/2020 Office Visit Dermatology Randi Cancino MD [address] [facility] [place] [address] 03/05/2020 Office Visit Family Medicine Farooq Rodríguez DO [address] [place] [address] [phone] 05/31/2020 Office Visit Cardiology Kath Carlin PA-C [address] [facility] [place] [address] [phone] Health Maintenance Due Date Last Done Comments [...] Documents on File Type Date Recorded Patient Vascular Radiologist Expl anation Advanced Directive Advanced Directive Advanced Directive Advanced Directive
--- OUTSIDE RECORDS SUMMARY | 2023-09-26 02:21 | External Medical Summary ---
Author Name Unknown Address [address] [facility] [place] [address] Phone Organization K0G:[facility] Dianne Watts [address] [facility] [place] [address] Laboratory Report Ordering Provider Test Date Status LAZARUS CEE 02/24/2020 07:57:00 Final Observation Date Value Abnormality Reference (Units ) Status Fasting status Patient Ql Reported 02/24/2020 07:59 >8 HOURS (hours) Final Triglyceride 02/24/2020 13:16 103 0-174 (mg/dL) Final
Triglyceride Reference Ranges (mg/dL)
<150 Acceptable
150-174 Borderline high
175-499 High
>=500 Very high
Cholesterol 02/24/2020 13:16 158 <200 (mg/dL ) Final
Total Cholesterol Refer ence Ranges (mg/dL)
<200 Desirable
200-239 Borderline high
>=240 High

HDL 02/24/2020 13:16 59 >39 (mg/dL) F inal
HDL Cholesterol Referen ce Ranges (mg/dL)
>=60 High (Desirable)
<50 Low (Undesirable) For Females
<40 Low (Undesirable) For Males
NON-HDL CHOLESTEROL 02/24/2020 13:16 99 0-1 59 (mg/dL) Final
Non-HDL Cholesterol Ref erence Range (mg/dL)
<100 Target level for high risk ASCVD patient
<130 Optimal for general population
130-159 Near optimal for general population
160-189 Borderline High
190-219 High
>=220 Very High
LDL, (calculated) 02/24/2020 13:16 78 0-129 (mg/dL) Final
LDL Cholesterol Referen ce Ranges (mg/dL)
<70 Target level for high risk ASCVD patient
<100 Optimal for general population
100-129 Near optimal for general population
130-159 Borderline high
160-189 High
>=190 Very high
LDL, (direct) 02/24/2020 13:16 NOT APPLICABLE 0-12 9 (mg/dL) Final Performing Location [facility] [address] [facility] [place] [address]
--- OUTSIDE RECORDS SUMMARY | 2023-09-26 02:21 | External Medical Summary | Summary of Care ---
Author Name Unknown Organization [facility] Address [place] [address] Care Team Providers Care Petroleum Transport Driver Name Role Phone Farooq Rodríguez DO Primary Care Provider [phone] Reason for Visit * Reason Comments Cardiology Study Encounter Details Date Type Department Care Team Description 11/21/2019 Cardiac Studies Cardiac Studies, [facility] [address] [facility] [place] [address] [place], Nurse Cardio [facility] [address] [phone] Bradycardia*; HTN, goal below 140/90; Dizziness; Diaphoresis Allergies No Known Allergiesdocumented as of this encounter (statuses as of 12/05/2019) Medications Medication Sig Dispensed Refills Start Date End Date Status ASPIRIN 81 MG PO TABS One daily 0 Active ZYRTEC ALLERGY 10 MG PO TABS one daily 0 Active ALBUTEROL SULFATE (2.5 MG/3ML) 0.083% IN [facility] one vial every 6 hours [...] 400 Units by mouth daily. 0 Active [place]-3 Fatty Acids (OMEGA 3 500) 500 MG CAPS Take by mouth. 0 Active atorvaSTATin (LIPITOR) 40 MG TabletIndications: CAD (coronary artery disease) Take 1 Tab by mouth daily. 90 Tab 3 02/07/2019 Active levothyroxine (LEVOXYL) 75 MCG TabletIndications: Hypothyroidism [...] TWICE DAILY 90 mL 1 04/03/2019 Active spironolactone (ALDACTONE) 25 MG Tablet TAKE 1 TABLET BY MOUTH ONCE DAILY IN THE MORNING 90 Tab 1 08/04/2019 Active meclizine (ANTIVERT) 25 MG Tablet Take 1 Tab by mouth 3 times a day as needed for Dizziness. 30 Tab 3 08/22/2019 Active potassium chloride ER 10 MEQ TBCR TAKE 1 TABLET BY MOUTH ONCE DAILY 90 Tab 1 09/29/2019 Active furosemide (LASIX) 40 MG Tablet TAKE 1 TABLET BY MOUTH ONCE DAILY 90 Tab 1 06/02/2019 12/01/2019 Discontinued documented as of this encounter (statuses as of 12/05/2019) Active Problems Problem Noted Date Dilated aortic [...] as of this encounter (statuses as of 12/05/2019) Resolved Problems Problem Noted Date Resolved Date Dyslipidemia, goal LDL below 100 06/01/2014 12/08/2015 Hypoactive thyroid 01/07/2013 12/11/2016 Bronchiectasis 04/18/2003 06/12/2017 documented as of this encounter (statuses as of 12/05/2019) Immunizations Name Administration Dates Next Due Pneumococcal [...] carmella ilable. documented as of this encounter Procedure Notes * Nadeem Sigala, - 11/21/2019 12:00 AM EST Associated Order(s): EXTERNAL EKG REVIEW AND INTERP REASON FOR STUDY: bradycardia; dizziness; diaphoresis;7 days CONCLUSIONS: Preliminary Findings Patient had a min HR of 46 [...] 24.8 secs with an avg rate of 117 bpm. Isolated SVEs were rare (<1.0%), SVE Couplets were rare (<1.0%), and SVE Triplets were rare (<1.0%). Isolated VEs were rare (<1.0%), VE Couplets were rare (<1.0%), and no VE Triplets were present. Agree with interpretation above. The patient's symptoms of sweating, lightheaded and dizziness seemto correlate with normal sinus rhythm. documented in this encounter Miscellaneous Notes * Result Lynn Bernardo RN - 12/05/2019 9:44 AM EST Letter sent. 12/05/2019 * Result Kath Mckay PA-C - 12/04/2019 4:31 PM EST Please let patient know that his monitor looked good No concerning bradycardia. Average HR in the 60s One episode of SVT lasting 24 seconds. No symptoms reported. Symptoms correlated with NSR Would f/u with PCP if he continues to have symptoms of diaphoresis/night sweats, etc Continue current medications documented in this encounter Plan of Treatment Upcoming Encounters Date Type Specialty Care Team Description 02/23/2020 Office Visit Family Medicine Farooq Rodríguez DO [address] [place] [address] [address] [phone] 03/03/2020 Office Visit Dermatology Randi Cancino MD [address] [place] [address] [phone] 05/31/2020 Office Visit Cardiology Kath Carlin PA-C [address] [facility] [place] [address] [phone] Health Maintenance Due Date Last Done Comments [...] 12/2018, 07/20/2018, 08/03/2016, Additional history exists MENINGOCOCCAL (MENACTRA) Aged Out No longer eligible based on patient's age to complete this topic documented as of this encounter Implants Not on filedocumented as of this encounter Procedures Procedure Name Priority Date/Time Associated Diagnosis Comments EXTERNAL EKG REVIEW AND INTERP Routine 11/21/2019 12:00 AM EST HTN, goal below 140/90 Dizziness Diaphoresis Bradycardia documented in this encounter Results * EXTERNAL EKG REVIEW AND INTERP (11/21/2019 12:00 AM EST) Specimen Procedure Note Nadeem Sigala, - 11/21/2019 12:00 AM EST REASON FOR STUDY: bradycardia; dizziness; diaphoresis;7 days CONCLUSIONS: Preliminary Findings Patient had a min HR of 46 bpm, max HR of 193 bpm, and avg HR of 65 bpm. Predominant underlying rhythm was Sinus Rhythm. 1 run of Ventricular Tachycardia occurred lasting 4 beats with a max rate of 115 bpm (avg 103 bpm). 14 Supraventricular Tachycardia runs occurred, the run with the fastest interval lasting 5 beats with a max rate of 193bpm, the longest lasting 24.8 secs with an avg rate of 117 bpm. Isolated SVEs were rare (<1.0%), SVE Couplets were rare (<1.0%), and SVE Triplets were rare (<1.0%). Isolated VEs were rare (<1.0%), VE Couplets were rare (<1.0%), and no VE Triplets were present. Agree with interpretation above. The patient's symptoms of sweating,lightheaded and dizziness seem to correlate with normal sinus rhythm. Performing Organization Address City/State/[place] e Phone Number [facility] documented in this encounter Visit Diagnoses Diagnosis Bradycardia- Primary Other specified cardiac dysrhythmias HTN, goal below 140/90 Unspecified essential hypertension Dizziness Dizziness and giddiness Diaphoresis Generalized hyperhidrosis documented in this encounter Advance Directives Documents on File Type Date Recorded Patient Keno Writer / Runner Expl anation Advanced Directive Advanced Directive Advanced Directive Advanced Directive
--- OUTSIDE RECORDS SUMMARY | 2023-09-26 02:21 | External Medical Summary | Summary of Care ---
Author Name Unknown Organization [place] [address] Care Team Providers Care Chain Hooker Name Role Phone Kelly Mitchell Primary Care Provider [phone] Reason for Visit * Reason Comments eRx-Medication Refill Encounter Details Date Type Department Care Team Description 02/29/2020 Refill Family Practice [facility] [address] [place] [address] Fabian Du III, MD [address] [place] [address] [phone] Hypothyroidism Allergies No Known Allergiesdocumented as of this encounter (statuses as of 03/01/2020) Medications Medication Sig Dispensed Refills Start Date End Date Status ASPIRIN 81 MG PO TABS One daily 0 Active ZYRTEC ALLERGY 10 MG PO TABS one daily 0 Active ALBUTEROL SULFATE (2.5 MG/3ML) 0.083% IN [facility] one vial every 6 hours [...] 400 Units by mouth daily. 0 Active [place]-3 Fatty Acids (OMEGA 3 500) 500 MG [...] 0 02/02/2020 Active levothyroxine (LEVOXYL) 75 MCG TabletIndications: Hypothyroidism TAKE 1 TABLET BY MOUTH ONCE DAILY IN THE MORNING ON EMPTY STOMACH WITH FULL GLASS OF WATER 90 Tab 3 03/01/2020 Active levothyroxine (LEVOXYL) 75 MCG TabletIndications: Hypothyroidism TAKE 1 TABLET BY MOUTH ONCE DAILY IN THE MORNING ON EMPTY STOMACH WITH FULL GLASS OF WATER 90 Tab 3 03/03/2019 03/01/2020 Discontinued documented as of this encounter (statuses as of 03/01/2020) Active Problems Problem Noted Date Dilated aortic [...] as of this encounter (statuses as of 03/01/2020) Resolved Problems Problem Noted Date Resolved Date Dyslipidemia, goal LDL below 100 06/01/2014 12/08/2015 Hypoactive thyroid 01/07/2013 12/11/2016 Bronchiectasis 04/18/2003 06/12/2017 documented as of this encounter (statuses as of 03/01/2020) Immunizations Name Administration Dates Next Due Pneumococcal [...] Notes * Telephone Encounter - Dom Juarez [facility] - 03/01/2020 11:05 AM EDT Signed Prescriptions: Disp Refills levothyroxine (LEVOXYL) 75 MCG Tablet 90 Tab 3 Sig: TAKE 1 TABLET BY MOUTH ONCE DAILY IN THE MORNING ON EMPTY STOMACH WITH FULL GLASS OF WATERAuthorizing Provider:KELLY MITCHELL User: DOM JUAREZ documented in this encounter Plan of Treatment Upcoming Encounters Date Type Specialty Care Team Description 03/05/2020 Office Visit Family Medicine Kelly Mitchell DO 200 [place] [address] 05/31/2020 Office Visit Cardiology [facility] [address] 07/13/2020 Office Visit Dermatology Randi Cancino MD [address] [facility] [place] [address] Health Maintenance Due Date Last Done Comments [...] Documents on File Type Date Recorded Patient Sports [employer] Membership Advisors Expl anation Advanced Directive Advanced Directive Advanced Directive Advanced Directive
--- OUTSIDE RECORDS SUMMARY | 2023-09-26 02:21 | External Medical Summary | Summary of Care ---
Author Name Unknown Organization [place] [address] Care Team Providers Care Microarray Specialist Name Role Phone Farooq Rodríguez DO Primary Care Provider [phone] Reason for Visit * Reason Comments Test Results Encounter Details Date Type Department Care Team Description 12/15/2019 Telephone Cardiology, [facility] [address] [place] [address] Kath Carlin PA-C [address] [facility] [place] [address] Test Results Allergies No Known Allergiesdocumented as of this encounter (statuses as of 12/15/2019) Medications Medication Sig Dispensed Refills Start Date [...] (PROAIR HFA) 108 (90 BASE) MCG/ACT inhalerIndications:Ac duckwater bronchitis, antibiotics not indicated Inhale 2 Puffs [...] 400 Units by mouth daily. 0 Active [place]-3 Fatty Acids (OMEGA 3 500) 500 MG CAPS Take by mouth. 0 Active atorvaSTATin (LIPITOR) 40 MG TabletIndications:CAD (coronary artery disease) Take 1 Tab by mouth daily. 90 Tab 3 02/07/2019 Active levothyroxine (LEVOXYL) 75 MCG TabletIndications:Hyp othyroidism TAKE 1 TABLET BY MOUTH ONCE DAILY IN THE MORNING ON EMPTY STOMACH WITH FULL GLASS OF WATER 90 Tab 3 03/03/2019 Active lisinopril (PRINIVIL) 20 MG Tablet TAKE 1 TABLET BY MOUTH ONCE DAILY 90 Tab 3 03/24/2019 Active Azelastine HCl 0.1 % nasal sprayIndications:Missile Tracking Technician alison rhinitis USE 2 SPRAY(S) IN [...] ONCE DAILY 90 Tab 3 12/01/2019 Active documented as of this encounter (statuses as of 12/15/2019) Active Problems Problem Noted Date Dilated aortic [...] as of this encounter (statuses as of 12/15/2019) Resolved Problems Problem Noted Date Resolved Date Dyslipidemia, goal LDL below 100 06/01/2014 12/08/2015 Hypoactive thyroid 01/07/2013 12/11/2016 Bronchiectasis 04/18/2003 06/12/2017 documented as of this encounter (statuses as of 12/15/2019) Immunizations Name Administration Dates Next Due Pneumococcal [...] encounter Miscellaneous Notes * Telephone Encounter - Blair Lamb LPN - 12/15/2019 10:17 AM EST Letter previously sent with results. * Telephone Encounter - Tamela Ambrocio OSA - 12/15/2019 10:06 AM EST Who is Requesting Test Results: The patient's Primary Care Provider : Dr David Rodríguez Tests Results Requested : Procurement Assistant Date of Test : 11/21/19 Location of Test: [facility] Cardiology Ordering Provider: Kath Carlin PA-C Callback Number: [phone] Patient has been made aware that the turnaround time for test results are typically as follows: Laboratory results = within 2 days Pathology results (biopsy results/PAP) = 1-2 weeks Radiology results = within 1 week documented in this encounter Plan of Treatment Upcoming Encounters Date Type Specialty Care Team Description 02/23/2020 Office Visit Family Medicine Farooq Rodríguez DO 200 [facility] [place] [address] [phone] 03/03/2020 Office Visit Dermatology Randi Cancino MD 200 [facility] [place] [address] [phone] 05/31/2020 Office Visit Cardiology Kath Carlin PA-C 132 [facility] [place] [address] Health Maintenance Due Date [...] Documents on File Type Date Recorded Patient Big Data Lead Expl anation Advanced Directive Advanced Directive Advanced Directive Advanced Directive
--- OUTSIDE RECORDS SUMMARY | 2023-09-26 02:22 | External Medical Summary ---
Author Name Unknown Address [facility] [address] [facility] [place] [place] [address] Phone Organization K01:[place] [address] [address] [place] [id number] Laboratory Report Ordering Provider Test Date Status CAROLE RICE 11/21/2019 09:45:00 Final Observation Date Value Abnormality Reference (Units ) Status TSH 11/21/2019 13:59 3.60 0.27-4.2 (uIU /mL) Final T4, Free 11/21/2019 13:59 NOT APPLICABLE 0.9-1.7 (ng/dL) Final Performing Location [address] [address]
--- OUTSIDE RECORDS SUMMARY | 2023-09-26 02:22 | External Medical Summary | Summary of Care ---
Author Name Unknown Organization [place] [address] Care Team Providers Care Production Honing Machine Operator Name Role Phone Farooq Rodríguez Primary Care Provider [phone] Encounter Details Date Type Department Care Team Description 08/20/2019 Scan Encounter Unspecified Department <No scans attached> Allergies No Known Allergiesdocumented as of this encounter (statuses as of 09/16/2019) Medications Medication Sig Dispensed Refills Start Date [...] 400 Units by mouth daily. 0 Active [place]-3 Fatty Acids (OMEGA 3 500) 500 MG CAPS Take by mouth. 0 Active atorvaSTATin (LIPITOR) 40 MG TabletIndications:CAD (coronary artery disease) Take 1 Tab by mouth daily. 90 Tab 3 02/07/2019 Active levothyroxine (LEVOXYL) 75 MCG TabletIndications:Hyp othyroidism TAKE 1 TABLET BY MOUTH ONCE DAILY IN THE MORNING ON EMPTY STOMACH WITH FULL GLASS OF WATER 90 Tab 3 03/03/2019 Active potassium chloride ER 10 MEQ TBCR TAKE 1 TABLET BY MOUTH ONCE DAILY 90 Tab 1 03/24/2019 Active lisinopril (PRINIVIL) 20 MG Tablet TAKE 1 TABLET BY MOUTH ONCE DAILY 90 Tab 3 03/24/2019 Active Azelastine HCl 0.1 % nasal sprayIndications:Front Attendant alison rhinitis USE 2 SPRAY(S) IN EACH NOSTRIL TWICE DAILY 90 mL 1 04/03/2019 Active furosemide (LASIX) 40 MG Tablet TAKE 1 TABLET BY MOUTH ONCE DAILY 90 Tab 1 06/02/2019 Active spironolactone (ALDACTONE) 25 MG Tablet TAKE 1 TABLET BY MOUTH ONCE DAILY IN THE MORNING 90 Tab 1 08/04/2019 Active documented as of this encounter (statuses as of 09/16/2019) Active Problems Problem Noted Date Dilated aortic [...] as of this encounter (statuses as of 09/16/2019) Resolved Problems Problem Noted Date Resolved Date Dyslipidemia, goal LDL below 100 06/01/2014 12/08/2015 Hypoactive thyroid 01/07/2013 12/11/2016 Bronchiectasis 04/18/2003 06/12/2017 documented as of this encounter (statuses as of 09/16/2019) Immunizations Name Administration Dates Next Due Pneumococcal [...] Comments Yes 6 12 oz of beer 3.0 Sex Assigned at Date Recorded Not on file Job Start Date Occupation Industry Not on file Not on file Not on file Travel History Travel Start Travel End No recent travel history carmella ilable. documented as of this encounter Plan of Treatment Upcoming Encounters Date Type Specialty Care Team Description 11/21/2019 Office Visit Cardiology Kath Carlin PA-C [address] [facility] [place] [address] [phone] 11/21/2019 Office Visit Dermatology Randi Cancino MD [address] [place] [address] [phone] 02/23/2020 Office Visit Family Medicine Farooq Rodríguez DO [address] [place], [place] [address] [phone] Health Maintenance Due Date Last Done Comments *DEPRESSION SCREENING,ANNUAL FOR PTS 12 AND OVER 07/22/2019 DTaP,Tdap,and Td Vaccines (2 - Td) 09/13/2019 09/13/2009 DIABETES SCREEN EVERY 3 YRS-AGE 45 AND ABOVE 08/22/2022 08/22/2019, 11/21/2018, 12/24/2017, Additional history exists LIPID SCREEN EVERY 5 [...] Documents on File Type Date Recorded Patient Sod Stripper Expl anation Advanced Directive Advanced Directive Advanced Directive Advanced Directive
--- OUTSIDE RECORDS SUMMARY | 2023-09-26 02:22 | External Medical Summary | Summary of Care ---
Author Name Unknown Organization [facility] Address [place] [address] Care Team Providers Care Form Layer Name Role Phone Farooq Rodríguez Primary Care Provider [phone] Encounter Details Date Type Department Care Team Description 11/17/2019 Orders Only Cardiology, [facility] [address] [place] [address] Kath Carlin PA-C 132 [facility] [place] [address] [phone] HTN, goal below 140/90* Allergies No Known Allergiesdocumented as of this encounter (statuses as of 11/17/2019) Medications Medication Sig Dispensed Refills Start Date [...] 400 Units by mouth daily. 0 Active [place]-3 Fatty Acids (OMEGA 3 500) 500 [...] 03/24/2019 Active Azelastine HCl 0.1 % nasal sprayIndications:Splash Line Operator alison rhinitis USE 2 SPRAY(S) IN [...] ONCE DAILY 90 Tab 1 09/29/2019 Active documented as of this encounter (statuses as of 11/17/2019) Active Problems Problem Noted Date Dilated aortic [...] as of this encounter (statuses as of 11/17/2019) Resolved Problems Problem Noted Date Resolved Date Dyslipidemia, goal LDL below 100 06/01/2014 12/08/2015 Hypoactive thyroid 01/07/2013 12/11/2016 Bronchiectasis 04/18/2003 06/12/2017 documented as of this encounter (statuses as of 11/17/2019) Immunizations Name Administration Dates Next Due Pneumococcal [...] [facility] [place] [address] [phone] 02/23/2020 Office Visit Family Medicine Farooq Rodríguez, DO [address] [place] [address] [phone] 03/03/2020 Office Visit Dermatology VanRandi miller MD 200 [facility] [place] [address] [phone] Scheduled Orders Name Type Priority Associated Diagnoses Orde r Schedule EKG EKG Routine HTN, goal below 140/90 Expected: 11/21/2019, Expires: 0 Health Maintenance Due Date Last Done Comments [...] Documents on File Type Date Recorded Patient Manufacturing Engineer Assembly Expl anation Advanced Directive Advanced Directive Advanced Directive Advanced Directive
--- OUTSIDE RECORDS SUMMARY | 2023-09-26 02:22 | External Medical Summary | Summary of Care ---
Author Name Unknown Organization [place] [address] Care Team Providers Care Enamel Dipper Name Role Phone Farooq Rodríguez DO Primary Care Provider [phone] Reason for Visit * Reason Comments eRx-Medication Refill Encounter Details Date Type Department Care Team Description 09/28/2019 Refill Family Practice [facility] 200 [place] [address] Dayanna Gómez III, MD 200 [place] [address] [phone] Allergies No Known Allergiesdocumented as of this encounter (statuses as of 09/29/2019) Medications Medication Sig Dispensed Refills Start Date [...] 400 Units by mouth daily. 0 Active [place]-3 Fatty Acids (OMEGA 3 500) 500 MG CAPS Take by mouth. 0 Acti ve atorvaSTATin (LIPITOR) 40 MG TabletIndications: CAD (coronary [...] ONCE DAILY 90 Tab 1 09/29/2019 Active potassium chloride ER 10 MEQ TBCR TAKE 1 TABLET BY MOUTH ONCE DAILY 90 Tab 1 03/24/2019 09/28/2019 Discontinued (Refill) documented as of this encounter (statuses as of 09/29/2019) Active Problems Problem Noted Date Dilated aortic [...] as of this encounter (statuses as of 09/29/2019) Resolved Problems Problem Noted Date Resolved Date Dyslipidemia, goal LDL below 100 06/01/2014 12/08/2015 Hypoactive thyroid 01/07/2013 12/11/2016 Bronchiectasis 04/18/2003 06/12/2017 documented as of this encounter (statuses as of 09/29/2019) Immunizations Name Administration Dates Next Due Pneumococcal [...] encounter Miscellaneous Notes * Telephone Encounter - Robert Wharton, [facility] - 09/29/2019 12:10 PM EST Signed Prescriptions: Disp Refills potassium chloride ER 10 MEQ TBCR 90 Tab 1 Sig: TAKE 1 TABLET BYMOUTH ONCE DAILYAuthorizing Provider: DAYANNA GÓMEZ III User: ROBERT WHARTON documented in this encounter Plan of Treatment Upcoming Encounters Date Type Specialty Care Team Description 11/21/2019 Office Visit Cardiology Kath Carlin PA-C 132 [facility] [place] [address] 11/21/2019 Office Visit Dermatology Randi Cancino MD 200 [place] [address] 02/23/2020 Office Visit Family Medicine Farooq Rodríguez DO [address] [place], [place] [id number] Health Maintenance Due Date Last Done Comments [...] Documents on File Type Date Recorded Patient Childbirth Educator Expl anation Advanced Directive Advanced Directive Advanced Directive Advanced Directive
--- OUTSIDE RECORDS SUMMARY | 2023-09-26 02:22 | External Medical Summary ---
Author Name Unknown Address [address] [place] [address] Phone Organization K0G[place] 132 [facility] [place] [address] Laboratory Report Ordering Provider Test Date Status CAROLE RICE 11/21/2019 09:45:00 Final Observation Date Value Abnormality Reference (Units ) Status BUN 11/21/2019 11:31 16 6-20 (mg/dL) Final Creatinine 11/21/2019 11:31 1.1 0.6-1.2 (mg/ dL) Final E Glom Filt Rate 11/21/2019 11:31 >60.0 >60 Final If patient is [place], multiply estimated GFR by 1.159. Sodium 11/21/2019 11:31 141 135-146 (mmol /L) Final Potassium 11/21/2019 11:31 4.3 3.5-5.1 (mmol /L) Final Cl 11/21/2019 11:31 102 98-107 (mmol/ L) Final CO2 11/21/2019 11:31 26 22-32 (mmol/L ) Final Anion gap 11/21/2019 11:31 13 7-15 (mmol/L) Final Glucose 11/21/2019 11:31 95 70-120 (mg/dL ) Final Albumin 11/21/2019 11:31 4.8 3.8-5.0 (g/dL ) Final AST (Aspartate aminotransferase) 11/21/2019 11:31 21 10-50 (U/L) Final Alk Phos 11/21/2019 11:31 57 0-153 (U/L) F inal Bilirubin, Total 11/21/2019 11:31 0.5 0-1.2 (mg/dL) Final Calcium 11/21/2019 11:31 9.8 8.4-10.2 (mg/ dL) Final Protein 11/21/2019 11:31 6.8 6.0-8.3 (g/dL ) Final ALT (Alanine aminotransferase) 11/21/2019 11:31 33 10-50 (U/L) Final Performing Location [address] [place] [address]
--- OUTSIDE RECORDS SUMMARY | 2023-09-26 02:22 | External Medical Summary | Summary of Care ---
Author Name Unknown Organization [facility] [place] [address] Care Team Providers Care Music Ministries Director Name Role Phone Farooq Rodríguez DO Primary Care Provider [phone] Reason for Visit * Reason Comments Cardiology Study Encounter Details Date Type Department Care Team Description 11/21/2019 Cardiac Studies Cardiac Studies, [facility] 132 [facility] [place] [address] [facility], Nurse Cardio [facility] [address] [facility] [place] [id number] Bradycardia*; HTN, goal below 140/90; Dizziness; Diaphoresis Allergies No Known Allergiesdocumented as of this encounter (statuses as of 11/21/2019) Medications Medication Sig Dispensed Refills Start Date End Date Status ASPIRIN 81 MG PO TABS One daily 0 Act natasha ZYRTEC ALLERGY 10 MG PO TABS one daily 0 Active ALBUTEROL SULFATE (2.5 MG/3ML) 0.083% IN [facility] one vial every 6 [...] 400 Units by mouth daily. 0 Active Keeling-3 Fatty Acids (OMEGA 3 500) 500 MG [...] 03/24/2019 Active Azelastine HCl 0.1 % nasal sprayIndications:Photoresist Printer alison rhinitis USE 2 SPRAY(S) IN EACH [...] as of this encounter (statuses as of 11/21/2019) Active Problems Problem Noted Date Dilated aortic [...] as of this encounter (statuses as of 11/21/2019) Resolved Problems Problem Noted Date Resolved Date Dyslipidemia, goal LDL below 100 06/01/2014 12/08/2015 Hypoactive thyroid 01/07/2013 12/11/2016 Bronchiectasis 04/18/2003 06/12/2017 documented as of this encounter (statuses as of 11/21/2019) Immunizations Name Administration Dates Next Due Pneumococcal [...] Date Type Specialty Care Team Description 11/21/2019 Laboratory Laboratory Saeid Watts 132 [facility] [place] [address] [phone] HTN, goal below 140/90; Dizziness; Diaphoresis; Bradycardia 02/23/2020 Office Visit Family Medicine Farooq Rodríguez DO 200 [facility] [place] [address] [phone] 03/03/2020 Office Visit Dermatology Randi Cancino MD [address] [place], [place] [address] [phone] 05/24/2020 Office Visit Cardiology Kath Carlin PA-C 132 [facility] [place] [address] [phone] Health Maintenance Due Date Last Done Comments [...] as of this encounter Visit Diagnoses Diagnosis Bradycardia- Primary Other specified cardiac dysrhythmias HTN, goal below 140/90 Unspecified essential hypertension Dizziness Dizziness and giddiness Diaphoresis Generalized hyperhidrosis documented in this encounter Advance Directives Documents on File Type Date Recorded Patient Personal Banking Officer Expl anation Advanced Directive Advanced Directive Advanced Directive Advanced Directive
--- OUTSIDE RECORDS SUMMARY | 2023-09-26 02:22 | External Medical Summary ---
Author Name Unknown Address 132 [facility] [place] [address] Phone Organization K0G:[facility] [address] [place] [address] Laboratory Report Ordering Provider Test Date Status CAROLE RICE 11/21/2019 09:45:00 Final Observation Date Value Abnormality Reference (Units ) Status WBC, Total 11/21/2019 10:09 7.82 4.00-10.80 ( K/uL) Final RBC 11/21/2019 10:09 4.48 Below low normal 4.50-5 .25 (M/uL) Final Hemoglobin 11/21/2019 10:09 13.6 Below low normal 14.0- 16.8 (g/dL) Final HCT 11/21/2019 10:09 41.1 40.0-48.4 (%) Final MCV 11/21/2019 10:09 91.7 82.0-99.5 (fL ) Final MCH 11/21/2019 10:09 30.4 27.0-34.0 (pg ) Final MCHC 11/21/2019 10:09 33.1 32.0-36.0 (g/ dL) Final RDW 11/21/2019 10:09 12.9 11.5-15.5 (%) Final Platelets 11/21/2019 10:09 181 140-400 (K/uL ) Final MPV 11/21/2019 10:09 10.4 6.6-11.1 (fL) Final Performing Location [facility] [address] [place] [address]
--- OUTSIDE RECORDS SUMMARY | 2023-09-26 02:22 | External Medical Summary | Summary of Care ---
Author Name Unknown Organization [place] [address] Care Team Providers Care Locomotive Operator Helper Name Role Phone Farooq Rodríguez DO Primary Care Provider [phone] Reason for Visit * Reason Comments Follow Up Encounter Details Date Type Department Care Team Description 11/21/2019 Office Visit Cardiology, Health system [address] [place] [address] Kath Carlin PA-C 132 [facility] [place] [address] [phone] Bradycardia*; HTN, goal below 140/90; Dizziness; Diaphoresis; Paulo's syndrome; Dilated aortic root (HCC) Allergies No Known Allergiesdocumented as of this [...] (PROAIR HFA) 108 (90 BASE) MCG/ACT inhalerIndications:Ac wiyot bronchitis, antibiotics not indicated Inhale 2 Puffs [...] 400 Units by mouth daily. 0 Active Eureka-3 Fatty Acids (OMEGA 3 500) 500 MG [...] 03/24/2019 Active Azelastine HCl 0.1 % nasal sprayIndications:Burnisher alison rhinitis USE 2 SPRAY(S) IN EACH [...] carmella ilable. documented as of this encounter Last Filed Vital Signs Vital Sign Reading Time Taken Comments Blood Pressure 122/84 11/21/2019 8:59 AM EST Pulse 54 11/21/2019 8:59 AM EST Temperature - - Respiratory Rate 16 11/21/2019 8:59 AM EST Oxygen Saturation 98% 11/21/2019 8:59 AM EST Inhaled Oxygen Concentration - - Weight 108.1 kg (238 lb 4 oz) 11/21/2019 8:59 AM EST Height 172.7 cm (5' 8") 11/21/2019 8:59 AM EST Body Mass Index 36.23 11/21/2019 8:59 AM EST documented in this encounter Progress Notes * Kath Carlin PA-C - 11/21/2019 9:09 AM EST 11/21/2019 Cardiology F/U: History of Present Illness: Mr. Dean is a 59 year old male who presents today for routine cardiology follow-up. Last clinic evaluation in November 2018 with the undersigned. 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 He was discharged on ibuprofen without recurrent symptoms. F/U echocardiograms demonstrated normal pericardium without pericardial effusion, normal EF, and no significant valvular disease with dilated aortic root at 4.5 cm, stable per echo in 11/2016, 2017, 2018. Other history significant for inflammatory pulmonary disease for which he follows with [facility], dyslipidemia, hepatic steatosis, hypertension, obesity, and chronic diastolic HF controlled on low dosefurosemide. Presents today feeling ok. Notes episodes of diaphoresis, night sweats, chills x 2 weeks. No respiratory symptoms. No fever or cough. NO recent illness. He also reports intermittent dizziness, more with positional changes. No syncope or near syncope. No palpitations or tachypalpitations. No chest pain or SOB. No chest pain, shortness of breath, palpitations, dizziness, syncope or near syncope. No orthopnea,PND, or increased lower extremity edema. No fever, chills, cough, hematochezia, melena, or hemoptysis. No recent labs. No current symptoms in the office. Sweats/diaphoresis come and go without rhythm or reason to activities. +Night sweats also possible Has not been to see PCP for these issues. Started about 2 weeks ago. Review of Systems: See HPI for pertinent [...] of beer per week Drug use: No Review of patient's allergies indicates: No Known Allergies Current Outpatient Medications Medication Sig Dispense Refill potassium chloride ER 10 MEQ TBCR TAKE 1 TABLET BY MOUTH ONCE DAILY 90 Tab 1 meclizine (ANTIVERT) 25 MG Tablet Take 1 Tab by mouth 3 times a day as needed for Dizziness. 30Tab 3 spironolactone (ALDACTONE) 25 MG Tablet TAKE 1 TABLET BY MOUTH ONCE DAILY IN THE MORNING 90 Tab1 furosemide (LASIX) 40 MG Tablet TAKE 1 TABLET BY MOUTH ONCE DAILY 90 Tab 1 Azelastine HCl 0.1 % nasal spray USE 2 SPRAY(S) IN EACH NOSTRIL TWICE DAILY 90 mL 1 lisinopril (PRINIVIL) 20 MG Tablet TAKE 1 TABLET BY MOUTH ONCE DAILY 90 Tab 3 levothyroxine (LEVOXYL) 75 MCG Tablet TAKE 1 TABLET BY MOUTH ONCE DAILY IN THE MORNING ON EMPTYSTOMACH WITH FULL GLASS OF WATER 90 Tab 3 atorvaSTATin (LIPITOR) 40 MG Tablet Take 1 Tab by mouth daily. 90 Tab 3 Eureka-3 Fatty Acids (OMEGA 3 500) 500 MG [...] PO TABS One daily OBJECTIVE/PHYSICAL EXAMINATION: BP 122/84 | Pulse 54 | Resp 16 | Ht 5' 8" (1.727m) | Wt 238 lbs 4 oz (108.069kg) | BMI 36.23 kg/m| BSA 2.28 m | SaO2 98% Wt Readings from Last 3 Encounters: 11/21/19 108.1 kg (238 lb 4 oz) 08/22/19 108.2 kg (238 lb 9.6 oz) 05/08/19 107.2 kg (236 lb 6 oz) General: NAD. A&Ox3. Eyes: Conjunctiva are pink and non-injected, sclera clear Neck: No overt JVD. Chest: Normal respiratory effort Lungs: Clear to auscultation Cardiac Exam: RRR. No murmurs, rubs, or gallops Abdomen: Distended. Obese. +BS. Soft. Extremities: No edema Neuro: Grossly normal exam Psych: Appropriate affect and insight. DATA: EKG performed today and reviewed personally: Sinus bradycardia at 53 bpm. Mild baseline [...] and PLAN: 59 year old male 1. Recent diaphoresis, night sweats, intermittent dizziness/flushing - etiology uncertain 2. Bradycardia 3. History of prior cardiac tamponade /effusion S/P pericardiocentesis in 2002- No recurrence per serial echocardiograms. Stable cardiovascular signs/symptoms 4. Chronic diastolic HF with intermittent edema - stable on current diuretic regimen. Currently well compensated. 5. Dyslipidemia - labs due 6. Hypertension - controlled 7. Obesity - continued weight loss recommended. 8. Dilated aortic root, stable at 4.5 cm per echo 11/2016 and 11/2017 9. Atypical chest pain, resolved. Negative DSE 11/2017 PLAN: We discussed his recent symptoms. Difficult to determine if potentially related to bradyarrhythmiasvs other cause. Check labs Cbc Compr metab panel TSH with free t4 if indicated Outpatient 7 day ZIO monitor also requested to evaluate symptoms and correlate with bradycardia or pauses. Patient agreeable. If no improvement and testing unremarkable, need to f/u with PCP as well. ? Up to date on cancer screenings Update echo spring/summer 2019. The patient agrees to the above plan and will call with additional questions or concerns. ER with all emergencies advised. Check-out note: Blood work today; zio done today; 6 month f/u Kath Carlin PA-C Department of Cardiology This chart was completed in part utilizing [employer] Speech Voice Recognition Software. Grammatical errors, random [...] documented in this encounter Procedure Notes * Carroll Ospina MD - 11/21/2019 9:05 AM EST Associated Order(s): EKG REASON FOR STUDY: HTN goal below 140/90 CONCLUSIONS: Sinus bradycardia Otherwise normal ECG When compared with ECG of 21-NOV-2018 13:03, No significant change was found Ventricular Rate: 53 Atrial Rate: 53 AL Interval: 168 QRS Duration: 102 QT/QTc: 448/420 ms P-R-T Roodhouse: 36 : -14 : 16 degrees documented in this encounter Nursing Notes * Hemalatha Ambrose LPN - 11/21/2019 8:54 AM EST Examination Room: 1 Name: Placido Dean Date of : (1960). Reason for Visit: 1 year follow up Interim Hospitalization(s): No Problems/Concerns: for the past 2 weeks patient has been having intermittent episodes of diaphoresis Chest Pain/SOB: No My [facility] is a way you can talk to your provider online through e-mail. Would you like to sign up? I can activate it for you? NO documented in this encounter Plan of Treatment Upcoming Encounters Date Type Specialty Care Team Description 02/23/2020 Office Visit Family Medicine Farooq Rodríguez, DO 200 [facility] [place] [address] [phone] 03/03/2020 Office Visit Dermatology Randi Cancino MD 200 [facility] [place] [address] [phone] 05/24/2020 Office Visit Cardiology Kath Carlin PA-C 132 [facility] [place] [address] [phone] Scheduled Orders Name Type Priority Associated Diagnoses Orde r Schedule EXTERNAL EKG REVIEW AND INTERP Holter Routine HTN, goal below 140/90 Dizziness Diaphoresis Bradycardia Expected: 11/21/2019, Expires: 12/22/2019 Health Maintenance Due Date Last Done Comments [...] Priority Date/Time Associated Diagnosis Comments EKG Routine 11/21/2019 9:05 AM EST HTN, goal below 140/90 documented in this encounter Results * TSH WITH FREE T4 IF INDICATED (11/21/2019 9:45 AM EST) TSH 3.60 0.27 - 4.2 uIU/mL [facility] FREE T4 REFLEXIVE NOT APPLICABLE 0.9 - 1.7 ng/dL [facility] Specimen Performing Organization Address [facility] Phone Number [facility], [address] [place] [address] * COMPR METAB PANEL (11/21/2019 9:45 AM EST) BUN 16 6 - 20 mg/dL [facility] CREATININE 1.1 0.6 - 1.2 mg/dL [facility] E GLOM FILT RATE >60.0Comment:If patient is , multiply estimated GFR by 1.159. >60 [facility] SODIUM 141 135 - 146 mmol/L [facility] POTASSIUM 4.3 3.5 - 5.1 mmol/L [facility] CHLORIDE 102 98 - 107 mmol/L [facility] CO2 26 22 - 32 mmol/L [facility] ANION GAP 13 7 - 15 mmol/L [facility] GLUCOSE 95 70 - 120 mg/dL [facility] ALBUMIN 4.8 3.8 - 5.0 g/dL [facility] AST 21 10 - 50 U/L [facility] ALKALINE PHOSPHATASE 57 0 - 153 U/L [facility] BILIRUBIN, TOTAL 0.5 0 - 1.2 mg/dL [facility] CALCIUM 9.8 8.4 - 10.2 mg/dL [facility] PROTEIN 6.8 6.0 - 8.3 g/dL [facility] ALT 33 10 - 50 U/L [facility] Specimen Performing Organization Address [facility] Phone Number [facility], [address] [facility] [place] [address] * CBC (11/21/2019 9:45 AM EST) WBC 7.82 4.00 - 10.80 K/uL [facility] RBC 4.48(L) 4.50 - 5.25 M/uL [facility] HGB 13.6(L) 14.0 - 16.8 g/dL [facility] HCT 41.1 40.0 - 48.4 % [facility] MCV 91.7 82.0 - 99.5 fL [facility] MCH 30.4 27.0 - 34.0 pg [facility] MCHC 33.1 32.0 - 36.0 g/dL [facility] RDW 12.9 11.5 - 15.5 % [facility] PLATELET COUNT 181 140 - 400 K/uL [facility] MPV 10.4 6.6 - 11.1 fL [facility] Specimen Performing Organization Address [facility] e Phone Number [facility] Room, [address] [facility] [place] [address] * EKG (11/21/2019 9:05 AM EST) Specimen Procedure Note Carroll Ospina MD - 11/21/2019 9:05 AM EST REASON FOR STUDY: HTN goal below 140/90 CONCLUSIONS: Sinus bradycardia Otherwise normal ECG When compared with ECG of 21-NOV-2018 13:03, No significant change was found Ventricular Rate: 53 Atrial Rate: 53 AL Interval: 168 QRS Duration: 102 QT/QTc: 448/420 ms P-R-T Roodhouse: 36 : -14 : 16 degrees Performing Organization Address [facility] e Phone Number [facility] documented in this encounter Visit Diagnoses Diagnosis Bradycardia- Primary Other specified cardiac dysrhythmias HTN, goal below 140/90 Unspecified essential hypertension Dizziness Dizziness and giddiness Diaphoresis 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
--- OUTSIDE RECORDS SUMMARY | 2023-09-26 02:22 | External Medical Summary | Summary of Care ---
Author Name Unknown Organization [place] [address] Care Team Providers Care Grocery Supervisor Name Role Phone Kelly Mitchell DO Primary Care Provider [phone] Reason for Visit * Reason Comments eRx-Medication Refill Encounter Details Date Type Department Care Team Description 11/30/2019 Refill Family Practice [facility] [address] [place] [address] Fabian Du III, MD [address] [place] [address] [phone] Allergies No Known Allergiesdocumented as of this encounter (statuses as of 12/01/2019) Medications Medication Sig Dispensed Refills Start Date [...] 400 Units by mouth daily. 0 Active Tracy-3 Fatty Acids (OMEGA 3 500) 500 MG [...] ONCE DAILY 90 Tab 3 12/01/2019 Active furosemide (LASIX) 40 MG Tablet TAKE 1 TABLET BY MOUTH ONCE DAILY 90 Tab 1 06/02/2019 12/01/2019 Discontinued documented as of this encounter (statuses as of 12/01/2019) Active Problems Problem Noted Date Dilated aortic [...] as of this encounter (statuses as of 12/01/2019) Resolved Problems Problem Noted Date Resolved Date Dyslipidemia, goal LDL below 100 06/01/2014 12/08/2015 Hypoactive thyroid 01/07/2013 12/11/2016 Bronchiectasis 04/18/2003 06/12/2017 documented as of this encounter (statuses as of 12/01/2019) Immunizations Name Administration Dates Next Due Pneumococcal [...] Miscellaneous Notes * Telephone Encounter - Coleman Dias [facility] - 12/01/2019 12:49 PM EST Signed Prescriptions: Disp Refills furosemide (LASIX) 40 MG Tablet 90 Tab 3 Sig: TAKE 1 TABLET BY MOUTH ONCE DAILYAuthorizing Provider: KELLY MITCHELL User: COLEMAN DIAS documented in this encounter Plan of Treatment Upcoming Encounters Date Type Specialty Care Team Description 02/23/2020 Office Visit Family Medicine Kelly Mitchell DO [address] [place] [address] 03/03/2020 Office Visit Dermatology Randi Cancino MD [address] [place], [place] [address] 05/24/2020 Office Visit Cardiology Kath Carlin PA-C 132 [facility] [place] [address] Health Maintenance [...] Documents on File Type Date Recorded Patient Gas Line Repairer Expl anation Advanced Directive Advanced Directive Advanced Directive Advanced Directive
--- OUTSIDE RECORDS SUMMARY | 2023-09-26 02:23 | External Medical Summary | Summary of Care ---
Author Name Unknown Organization [place] [address] Care Team Providers Care Frame Pulley Mortising Machine Operator Name Role Phone Fabian Du MD Primary Care Provider [phone] Reason for Visit * Reason Comments Appointment FYI Encounter Details Date Type Department Care Team Description 06/25/2019 Telephone Family Practice [facility] [address] [place] [address] Fabian Du III, MD 200 [place], [place] [id number] Appointment; FYI Allergies No Known Allergiesdocumented as of this encounter (statuses as of 2019) Medications Medication Sig Dispensed Refills Start Date [...] 400 Units by mouth daily. 0 Active Montezuma-3 Fatty Acids (OMEGA 3 500) 500 MG CAPS Take by mouth. 0 Active spironolactone (ALDACTONE) 25 MG Tablet TAKE 1 TABLET BY MOUTH ONCE DAILY IN THE MORNING 90 Tab 1 02/03/2019 Active atorvaSTATin (LIPITOR) 40 MG TabletIndications:CAD (coronary [...] 03/24/2019 Active Azelastine HCl 0.1 % nasal sprayIndications:Special Education Teacher alison rhinitis USE 2 SPRAY(S) IN EACH NOSTRIL TWICE DAILY 90 mL 1 04/03/2019 Active furosemide (LASIX) 40 MG Tablet TAKE 1 TABLET BY MOUTH ONCE DAILY 90 Tab 1 06/02/2019 Active documented as of this encounter (statuses as of 2019) Active Problems Problem Noted Date Dilated aortic [...] as of this encounter (statuses as of 2019) Resolved Problems Problem Noted Date Resolved Date Dyslipidemia, goal LDL below 100 06/01/2014 12/08/2015 Hypoactive thyroid 01/07/2013 12/11/2016 Bronchiectasis 04/18/2003 06/12/2017 documented as of this encounter (statuses as of 2019) Immunizations Name Administration Dates Next Due Pneumococcal Conjugate Vacc, 13 Valent (Prevnar) 08/19/2010 Pneumococcal Conjugate Vacci ne, 7 Valent 10/15/2002 Pneumococcal Polysaccharide PPV23 (Pneumovax) 08/19/2010 Seasonal Influenza, Quadriva lent, No Preserve, IM 08/03/2016 Seasonal Influenza, Trivalen t, with Preserve, 3yr [...] Telephone Encounter - Christen Salmon OSA - 2019 9:44 AM EDT Spoke to patient's to reschedule appt, she declined to schedule follow-up, she is keeping CPE with Dr. Du on 07/30/2019 and then [address] with Dr. Rodríguez in August. * Telephone Encounter - Sosa Lin LPN - 2019 8:25 AM EDT Can you please help pt get scheduled, thank you * Telephone Encounter - Mireya Miller OSA - 06/25/2019 4:45 PM EDT Pt's called and cancelled his appt for 06/25/19 at 7:[address] Du. Pt wants an appt next week, nothing available, however, Dr Du's ER follow ups are 40 mins per his protocol. Please callpt's to reschedule accordingly. Thank you * Telephone Encounter - Latosha Jett OSA - 06/25/2019 4:00 PM EDT Per Mandy, notified the patient's that the appointment is still on for 06-25-2019 for a 6:45 arrival. * Telephone Encounter - Latosha Jett OSA - 06/25/2019 1:02 PM EDT Reason for patient's call: returning call about rescheduling Called for assistance on where to put the patient for his ER follow up. Mandy advised to check in with Christen Salmon for assistance. I haven't been able to get Christen on Skype. The patien'ts is waiting for a call back. They were told the appointment was cancelled, but it is still on the schedule. I am not finding anyappointments after 4pm to accomodate the patient's scheduling request. Please call the patient's at [phone] regarding this appointment. Thank you. * Telephone Encounter - Christen Salmon OSA - 06/25/2019 12:53 PM EDT LMOM asking patient to call to reschedule ER follow-up that is scheduled for 06/25/2019 7:00pm, appt double booked Dr. Du's schedule. documented in this encounter Plan of Treatment Upcoming Encounters Date Type Specialty Care Team Description 07/30/2019 Office Visit Family Medicine Fabian Du III, MD [address] [place] [address] [phone] 08/22/2019 Office Visit Family Medicine Farooq Rodríguez DO [address] [place] [address] [phone] 11/21/2019 Office Visit Cardiology Kath Carlin PA-C 132 [facility] [place] [address] [phone] Health Maintenance Due Date Last Done Comments Influenza Vaccine (FLU shot) (#1) 2019 07/20/2018, 08/03/2016, 08/03/2015, Additional history exists DTaP,Tdap,and Td Vaccines (2 - Td) 09/13/2019 09/13/2009 DIABETES SCREEN EVERY 3 YRS-AGE 45 AND ABOVE 11/21/2021 11/21/2018, 12/24/2017, 11/30/2016, Additional history exists LIPID SCREEN EVERY 5 YRS-MEN AGE 35-75 01/14/2024 01/14/2019, 11/21/2018, 12/24/2017, Additional history exists MENINGOCOCCAL (MENACTRA) Aged Out No longer eligible based on patient's age to complete this topic documented as of this encounter Implants Not on filedocumented as of this encounter Advance Directives Documents on File Type Date Recorded Patient Blender Expl anation Advanced Directive Advanced Directive Advanced Directive
--- OUTSIDE RECORDS SUMMARY | 2023-09-26 02:23 | External Medical Summary | Summary of Care ---
Author Name Unknown Organization [place] [address] Care Team Providers Care General Technician Name Role Phone Farooq Rodríguez DO Primary Care Provider [phone] Reason for Referral * Evaluate & Treat - Unlimited Visits (Within 10 days (routine)) Status Reason Specialty Diagnoses / Procedures Referred By Contact Referred To Contact Pending Review Specialty Services Required Dermatology Diagnoses Abnormal skin growth Farooq Rodríguez, DO [address] [place] [address] Reason for Visit * Reason Comments NEW PATIENT Encounter Details Date Type Department Care Team Description 08/22/2019 Office Visit Family Practice [facility] [address] [place] [address] aFrooq Rodríguez, [address] [address] [phone] Routine medical exam*; Dilated aortic root (HCC); Acquired hypothyroidism; Abnormal skin growth Allergies No Known Allergiesdocumented as of this encounter (statuses as of 08/24/2019) Medications Medication Sig Dispensed Refills Start Date [...] (PROAIR HFA) 108 (90 BASE) MCG/ACT inhalerIndications:Ac assiniboine and gros ventre tribes bronchitis, antibiotics not indicated Inhale 2 Puffs [...] 400 Units by mouth daily. 0 Active [place]-3 Fatty Acids (OMEGA 3 500) 500 MG [...] 03/24/2019 Active Azelastine HCl 0.1 % nasal sprayIndications:University Librarian alison rhinitis USE 2 SPRAY(S) IN EACH [...] for Dizziness. 30 Tab 3 08/22/2019 Active documented as of this encounter (statuses as of 08/24/2019) Active Problems Problem Noted Date Dilated aortic [...] as of this encounter (statuses as of 08/24/2019) Resolved Problems Problem Noted Date Resolved Date Dyslipidemia, goal LDL below 100 06/01/2014 12/08/2015 Hypoactive thyroid 01/07/2013 12/11/2016 Bronchiectasis 04/18/2003 06/12/2017 documented as of this encounter (statuses as of 08/24/2019) Immunizations Name Administration Dates Next Due Pneumococcal [...] Sign Reading Time Taken Comments Blood Pressure 118/70 08/22/2019 4:19 PM EDT Pulse 60 08/22/2019 4:19 PM EDT Temperature 37 C (98.6 F) 08/22/2019 4:19 PM EDT Respiratory Rate 18 08/22/2019 4:19 PM EDT Oxygen Saturation - - Inhaled Oxygen Concentration - - Weight 108.2 kg (238 lb 9.6 oz) 08/22/2019 4:19 PM EDT Height 172.7 cm (5' 8") 08/22/2019 4:19 PM EDT Body Mass Index 36.28 08/22/2019 4:19 PM EDT documented in this encounter Progress Notes * Farooq Rodrígeuz, - 08/22/2019 4:34 PM EDT Subjective: Placido Woodward is a 59 year old male. Chief Complaint Patient presents with NEW PATIENT HPI: PT here is a new patients. Went through Paulo Syndrome and a helicopter ride to [place]. No issues since his bad episode in the early . History of low thyroid. HE uses Dulera as needed. Helps when he takes it. He is missing 2 bronchiol tubes from prior surgery. PMHx, PSHx, SHx, FHx, Medications, and Allergies fully reviewed Colonoscopy done BP good today. HE is losing weight by staying busy. Working hard and changing his diet with his . She found out she is diabetic and changing there diet. Cut out red meat. Watching their carbs. More chicken and fish. No more eating after supper. Last lipids were good per cardio. PHM: Patient Active Problem List Diagnosis Code Paulo's [...] nevi Z13.89 Dilated aortic root (HCC) I77.810 Current Outpatient Medications Medication Sig Dispense Refill spironolactone (ALDACTONE) 25 MG Tablet TAKE 1 [...] BY MOUTH ONCE DAILY 90 Tab 1 levothyroxine (LEVOXYL) 75 MCG Tablet TAKE 1 TABLET BY MOUTH ONCE DAILY IN THE MORNING ON EMPTYSTOMACH WITH FULL GLASS OF WATER 90 Tab 3 atorvaSTATin (LIPITOR) 40 MG Tablet Take 1 Tab by mouth daily. 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 Pericardial effusion 01/2003 idiopathic, at [facility] Pilonidal cyst without infection Past Surgical History: Procedure Laterality Date BRONCHOSCOPY W/ BRONCHIAL BIOPSY 2002 biopsy, open and bronchoscopy COLONOSCOPY, DIAGNOSTIC (RECTUM) 11/29/2012 COLONOSCOPY FLEXIBLE PROXIMAL DIAGNOSTIC performed by Cristy Dobbs DO at ENDOSCOPY [facility] COLONOSCOPY, DIAGNOSTIC (RECTUM) 11/26/2015 diverticulosis, repeat 10 yrs/COLONOSCOPY FLEXIBLE PROXIMAL DIAGNOSTIC performed by Crsity Dobbs DO at ENDOSCOPY [facility] DENTAL SURGERY PROCEDURE NEC Dental Surgery Procedure DRAINAGE OF HEART SAC 2002 [facility] REMOVAL OF WRIST LESION Review of patient's allergies indicates: No Known Allergies Family History Problem Relation Age of Onset Dementia Father Other (Other) Brother accident Genitourinary Disorder Father stones Hypertension Father No Past Hx Mother Cancer Grandmother (Paternal) pancreas Other (Other) Grandfather (Paternal) blood poisoning Lung Disorder Grandfather (Maternal) Alcohol and Other Disorders Associated Grandfather (Maternal) No Past Hx Grandmother (Maternal) Family Status Relation Status Fa Alive hypertension, stones, colon polyps at age 65 Bro Son Alive Son Alive Mo Alive PGMA PGFA (Not Specified) MGFA MGFA MGMA Social History Socioeconomic History Marital status: Spouse name: Bev Number of children: 2 Years of education: Not on file Highest education level: Not on file Occupational History 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 Employer: [employer] Comment: [employer] 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 Employer: [employer] Occupation: [employer] Employer: [employer] [facility] Social Needs Financial resource strain: Not on file Food insecurity: Worry: Not on file Inability: Not on file Transportation needs: Medical: Not on file Non-medical: Not on file Tobacco Use Smoking status: Never Smoker Smokeless tobacco: Former User Types: Chew Tobacco comment: quit Substance and Sexual Activity Alcohol use: Yes Alcohol/week: 3.0 oz Types: 6 12 oz of beer per week Drug use: No Sexual activity: Yes Partners: Female Lifestyle Physical activity: Days per week: Not on file Minutes per session: Not on file Stress: Not on file Relationships Social connections: Talks on phone: Not on file Gets together: Not on file Attends advent service: Not on file Active member of club or organization: Not on file Attends meetings of clubs or organizations: Not on file Relationship status: Not on file Intimate partner violence: Fear of current or ex partner: Not [...] Not Asked Social History Narrative born in [place], life long resident Review of Systems: General: No change in weight, No weakness, [...] and No significant pain in neck Respiratory: No cough, sputum, or hemoptysis, No wheezing, No shortness of breath and No recent change in breathing Cardiac: No chest pain, No shortness of [...] and No sensation of incomplete voiding Musculoskeletal: No joint pain or stiffness, No arthritis, No backache, No muscle pains or cramps and No joint swelling Hematologic: No anemia, No easy bruising or abnormal bleeding and No history of transfusion Neurologic: No fainting or blackouts, No seizures, No paralysis or focal weakness, No numbness or tingling, No tremors and No significant problems with memory Objective: BP 118/70 | Pulse 60 | Temp (Src) 98.6 (Tympanic) | Resp 18 | Ht 5' 8" (1.727m) | Wt 238 lbs 9.6 oz(108.228kg) | BMI 36.28 kg/m | BSA 2.28 m Physical Exam: General: alert, healthy and no distress Head: [...] refill, no joint deformities, effusion, or inflammation ASSESSMENT: Routine medical exam (Primary) Dilated aortic root (HCC) - COMPR METAB PANEL; Future; Expected date: 08/22/2019 - COMPR METAB PANEL Acquired hypothyroidism - TSH WITH FREE T4 IF INDICATED; Future; Expected date: 08/22/2019 - TSH WITH FREE T4 IF INDICATED Abnormal skin growth - DERMATOLOGY REFERRAL OP Other orders - meclizine (ANTIVERT) 25 MG Tablet; Take 1 Tab by mouth 3 times a day as needed for Dizziness. Dental and sun care discussed along with weight. Farooq Rodríguez DO documented in this encounter Nursing Notes * Sabrina Stephens LPN - 08/22/2019 4:19 PM EDT Chief Complaint Patient presents with NEW PATIENT documented in this encounter Plan of Treatment Upcoming Encounters Date Type Specialty Care Team Description 11/21/2019 Office Visit Cardiology Kath Carlin PA-C [address] [place] [address] [place] [address] [phone] 11/21/2019 Office Visit Dermatology Randi Cancino MD [address] [facility] [place] [address] [phone] 02/23/2020 Office Visit Family Medicine Farooq Rodríguez DO [address] [facility] [place] [address] [phone] Scheduled Referrals Name Type Priority Associated Diagnoses Orde r Schedule DERMATOLOGY REFERRAL OP Referral Within 10 days (routine) Abnormal skin growth Ordered: 08/22/2019 Health Maintenance Due Date Last Done Comments *DEPRESSION SCREENING,ANNUAL FOR PTS 12 AND OVER 07/22/2019 *TSH FOR THYROID MEDICATION MONITORING YEARLY 07/22/2019 DTaP,Tdap,and Td Vaccines (2 - Td) [...] Procedure Name Priority Date/Time Associated Diagnosis Comments TSH WITH FREE T4 IF INDICATED Routine 08/22/2019 4:52 PM EDT Acquired hypothyroidism COMPR METAB PANEL Routine 08/22/2019 4:5 2 PM EDT Dilated aortic root (HCC) documented in this encounter Results * COMPR METAB PANEL (08/22/2019 4:52 PM EDT) BUN 16 6 - 20 mg/dL [facility] CREATININE 1.1 Comment: GFR should be used to assess renal function.Plasm a/Serum creatinine may not be able to properly reflect renal function in some cases. 0.6 - 1.2 mg/dL [facility] E GLOM FILT RATE >60.0Comment:If patient is , multiply estimated GFR by 1.159. >60 [facility] SODIUM 144 135 - 146 mmol/L [facility] POTASSIUM 4.3 3.5 - 5.1 mmol/L [facility] CHLORIDE 104 98 - 107 mmol/L [facility] CO2 29 22 - 32 mmol/L [facility] ANION GAP 11 7 - 15 mmol/L [facility] GLUCOSE 65(L) 70 - 120 mg/dL [facility] ALBUMIN 4.5 3.8 - 5.0 g/dL [facility] AST 21 10 - 50 U/L [facility] ALKALINE PHOSPHATASE 56 0 - 153 U/L [facility] BILIRUBIN, TOTAL 0.3 0 - 1.2 mg/dL [facility] CALCIUM 9.6 8.4 - 10.2 mg/dL [facility] PROTEIN 6.9 6.0 - 8.3 g/dL [facility] ALT 25 10 - 50 U/L [facility] Specimen Performing Organization Address [facility] Phone Number [facility], [address] [place] [address] * TSH WITH FREE T4 IF INDICATED (08/22/2019 4:52 PM EDT) TSH 3.92 0.27 - 4.2 uIU/mL [facility] FREE T4 REFLEXIVE NOT APPLICABLE 0.9 - 1.7 ng/dL [facility] Specimen Performing Organization Address [facility] Phone Number [facility], [address] [place] [address] documented in this encounter Visit Diagnoses Diagnosis Routine medical exam- Primary Routine general medical examination at a health care facility Dilated aortic root (HCC) Thoracic aortic ectasia Acquired hypothyroidism Unspecified hypothyroidism Abnormal skin growth documented in this encounter Advance Directives Documents on File Type Date Recorded Patient Sports Leadership Instructor Expl anation Advanced Directive Advanced Directive Advanced Directive Advanced Directive
--- OUTSIDE RECORDS SUMMARY | 2023-09-26 02:23 | External Medical Summary ---
Author Name Unknown Address [address] [facility] [place] [address] Phone Organization K01:[facility] [address] [id number] Laboratory Report Ordering Provider Test Date Status STEPHEN MENDOZA 08/22/2019 16:52:00 Final Observation Date Value Abnormality Reference Status BUN 08/22/2019 22:00 16 6-20 Fin al Creatinine 08/22/2019 22:00 1.1 0.6-1.2 Fi nal GFR should be used to assess renal function. Plasma/Serum creatinine may not be able to properly reflect renal function in some cases. E Glom Filt Rate 08/22/2019 22:00 >60.0 >60 Final If patient is Americ an, multiply estimated GFR by 1.159. Sodium 08/22/2019 22:00 144 135-146 Fin al Potassium 08/22/2019 22:00 4.3 3.5-5.1 Fin al Cl 08/22/2019 22:00 104 98-107 Fin al CO2 08/22/2019 22:00 29 22-32 Fin al Anion gap 08/22/2019 22:00 11 7-15 Fin al Glucose 08/22/2019 22:00 65 Below low normal 70-120 Final Albumin 08/22/2019 22:00 4.5 3.8-5.0 Fin al AST (Aspartate aminotransferase) 08/22/2019 22:00 21 10-50 Final Alk Phos 08/22/2019 22:00 56 0-153 Fin al Bilirubin, Total 08/22/2019 22:00 0.3 0-1.2 Final Calcium 08/22/2019 22:00 9.6 8.4-10.2 Fin al Protein 08/22/2019 22:00 6.9 6.0-8.3 Fin al ALT (Alanine aminotransferase) 08/22/2019 22:00 25 10-50 Final Performing Location [facility] [address] [facility] [address]
--- OUTSIDE RECORDS SUMMARY | 2023-09-26 02:23 | External Medical Summary | Summary of Care ---
Author Name Unknown Organization [place] [address] Care Team Providers Care Sub Acute Care Nurse Name Role Phone Dayanna Gómez MD Primary Care Provider [phone] Reason for Visit * Reason Comments eRx-Medication Refill Encounter Details Date Type Department Care Team Description 08/03/2019 Refill Family Practice [facility] [address] [place] [address] Dayanna Gómez III, MD [address] [place] [address] [phone] Allergies No Known Allergiesdocumented as of this encounter (statuses as of 08/04/2019) Medications Medication Sig Dispensed Refills Start Date End Date Status ASPIRIN 81 MG PO TABS One daily 0 Active ZYRTEC ALLERGY 10 MG PO TABS one daily 0 Active ALBUTEROL SULFATE (2.5 MG/3ML) 0.083% IN [facility] one vial every 6 hours [...] 400 Units by mouth daily. 0 Active [place]-3 Fatty Acids (OMEGA 3 500) 500 MG [...] THE MORNING 90 Tab 1 08/04/2019 Active spironolactone (ALDACTONE) 25 MG Tablet TAKE 1 TABLET BY MOUTH ONCE DAILY IN THE MORNING 90 Tab 1 02/03/2019 08/03/2019 Discontinued documented as of this encounter (statuses as of 08/04/2019) Active Problems Problem Noted Date Dilated aortic [...] as of this encounter (statuses as of 08/04/2019) Resolved Problems Problem Noted Date Resolved Date Dyslipidemia, goal LDL below 100 06/01/2014 12/08/2015 Hypoactive thyroid 01/07/2013 12/11/2016 Bronchiectasis 04/18/2003 06/12/2017 documented as of this encounter (statuses as of 08/04/2019) Immunizations Name Administration Dates Next Due Pneumococcal [...] Miscellaneous Notes * Telephone Encounter - Dom Juarez, [facility] - 08/04/2019 11:56 AM EDT Signed Prescriptions: Disp Refills spironolactone (ALDACTONE) 25 MG Tablet 90 Tab 1 Sig: TAKE 1 TABLET BY MOUTH ONCE DAILY IN THE MORNINGAuthorizing Provider: DAYANNA GÓMEZ III User: DOM JUAREZ documented in this encounter Plan of Treatment Upcoming Encounters Date Type Specialty Care Team Description 08/22/2019 Office Visit Family Medicine Farooq Rodríguez, DO 200 [facility], [place] [address] [phone] 11/21/2019 Office Visit Cardiology Kath Carlin PA-C [address] [facility] [place] [address] [phone] Health Maintenance Due Date Last Done Comments Influenza Vaccine (FLU shot) (#1) 2019 07/20/2018, 08/03/2016, 08/03/2015, Additional history exists *DEPRESSION SCREENING,ANNUAL FOR PTS 12 AND OVER [...] patient's age to complete this topic MENINGOCOCCAL (MENACTRA) Aged Out No longer eligible based on patient's age to complete this topic documented as of this encounter Implants Not on filedocumented as of this encounter Advance Directives Documents on File Type Date Recorded Patient White Sidewall Tire Buffer Expl anation Advanced Directive Advanced Directive Advanced Directive
--- OUTSIDE RECORDS SUMMARY | 2023-09-26 02:23 | External Medical Summary | Summary of Care ---
Author Name Unknown Organization [place] [address] Care Team Providers Care Pricing Analyst Name Role Phone Fabian Du MD Primary Care Provider [phone] Reason for Visit * Reason Comments Appointment FYI Encounter Details Date Type Department Care Team Description 06/25/2019 Telephone Family Practice [facility] [address] [place] [address] Fabian Du III, MD [address] [place], [place] [address] Appointment; FYI Allergies No Known Allergiesdocumented as [...] 400 Units by mouth daily. 0 Active [place]-3 Fatty Acids (OMEGA 3 500) 500 MG [...] 03/24/2019 Active Azelastine HCl 0.1 % nasal sprayIndications:Petrol Tanker Driver alison rhinitis USE 2 SPRAY(S) IN EACH [...] encounter Miscellaneous Notes * Telephone Encounter - Sosa Lin LPN [...] assistance. I haven't been able to get [place] on [employer]. The patien'ts is waiting for a call back. They were told the appointment was cancelled, but it is still on the schedule. I am not finding anyappointments after 4pm to accomodate the patient's scheduling request. Please call the patient's at [phone] regarding this appointment. Thank you. * Telephone Encounter - Christen Salmon OSA - 06/25/2019 12:53 PM EDT LMOM asking patient to call to reschedule ER follow-up that is scheduled for 06/25/2019 7:00pm, appt double booked Dr. Du's schedule. documented in this encounter Plan of Treatment Upcoming Encounters Date Type Specialty Care Team Description 07/30/2019 Office Visit Family Medicine Ana Laura CEVALLOS, Fabian Carlisle MD 200 [facility] [place], [place] [address] [phone] 11/21/2019 Office Visit Cardiology Kath Carlin PA-C [address] [facility] [place] [address] [phone] Health Maintenance Due Date Last Done Comments [...] Documents on File Type Date Recorded Patient Cryptologist Expl anation Advanced Directive Advanced Directive Advanced Directive
--- OUTSIDE RECORDS SUMMARY | 2023-09-26 02:23 | External Medical Summary | Summary of Care ---
Author Name Unknown Organization [place] [address] Care Team Providers Care Rn Community Health Name Role Phone Fabian Du MD Primary Care Provider [phone] Encounter Details Date Type Department Care Team Description 07/23/2019 Scan Encounter Unspecified Department <No scans attached> Allergies No Known Allergiesdocumented as of this encounter (statuses as of 07/24/2019) Medications Medication Sig Dispensed Refills Start Date [...] (PROAIR HFA) 108 (90 BASE) MCG/ACT inhalerIndications:Ac [place] bronchitis, antibiotics not indicated Inhale 2 Puffs [...] 400 Units by mouth daily. 0 Active [place]-3 Fatty Acids (OMEGA 3 500) 500 [...] 03/24/2019 Active Azelastine HCl 0.1 % nasal sprayIndications:Raspberry Checker alison rhinitis USE 2 SPRAY(S) IN EACH NOSTRIL TWICE DAILY 90 mL 1 04/03/2019 Active furosemide (LASIX) 40 MG Tablet TAKE 1 TABLET BY MOUTH ONCE DAILY 90 Tab 1 06/02/2019 Active documented as of this encounter (statuses as of 07/24/2019) Active Problems Problem Noted Date Dilated aortic [...] as of this encounter (statuses as of 07/24/2019) Resolved Problems Problem Noted Date Resolved Date Dyslipidemia, goal LDL below 100 06/01/2014 12/08/2015 Hypoactive thyroid 01/07/2013 12/11/2016 Bronchiectasis 04/18/2003 06/12/2017 documented as of this encounter (statuses as of 07/24/2019) Immunizations Name Administration Dates Next Due Pneumococcal [...] Visit Family Medicine Farooq Rodríguez, DO [address] [facility], [place] [address] [phone] 11/21/2019 Office Visit Cardiology Kath Carlin PA-C [address] [facility] [place] [address] [phone] Health Maintenance Due Date Last Done Comments [...] on File Type Date Recorded Patient Food Stand Manager Expl anation Advanced Directive Advanced Directive Advanced Directive
--- OUTSIDE RECORDS SUMMARY | 2023-09-26 02:23 | External Medical Summary ---
Author Name Unknown Address [address] [place] [address] Phone Organization K01:[facility] [address] [id number] Laboratory Report Ordering Provider Test Date Status PARAMJIT MENDOZASudhir 08/22/2019 16:52:00 Final Observation Date Value Abnormality Reference Status TSH 08/22/2019 22:28 3.92 0.27-4.2 Fin al T4, Free 08/22/2019 22:28 NOT APPLICABLE 0.9-1.7 Final Performing Location [facility] [address] [facility] [address]
--- OUTSIDE RECORDS SUMMARY | 2023-09-26 02:23 | External Medical Summary | Summary of Care ---
Author Name Unknown Organization [place] [address] Care Team Providers Care Firesetter Name Role Phone Fabian Du MD Primary Care Provider [phone] Reason for Visit * Reason Comments Appointment FYI Encounter Details Date Type Department Care Team Description 06/25/2019 Telephone Family Practice [facility] [address] [place] [address] Fabian Du III, MD [address] [employer], [place] [address] Appointment; FYI Allergies No Known Allergiesdocumented as [...] 400 Units by mouth daily. 0 Active [place]-3 Fatty Acids (OMEGA 3 500) 500 MG [...] 03/24/2019 Active Azelastine HCl 0.1 % nasal sprayIndications:Mobile Tester alison rhinitis USE 2 SPRAY(S) IN [...] encounter Miscellaneous Notes * Telephone Encounter - Mireya Miller OSA [...] haven't been able to get Christen on [employer]. The patien'ts is waiting for a call back. They were told the appointment was cancelled, but it is still on the schedule. I am not finding anyappointments after 4pm to accomodate the patient's scheduling request. Please call the patient's at [phone] regarding this appointment. Thank you. * Telephone Encounter - Christen Salmon OSA - 06/25/2019 12:53 PM EDT LMOM asking patient to call to reschedule ER follow-up that is scheduled for 06/25/2019 7:00pm, appt double booked Dr. Du's schedule. documented in this encounter Plan of Treatment Upcoming Encounters Date Type Specialty Care Team Description 07/30/2019 Office Visit Family Medicine Fabian Du III, MD 200 [facility] [place] [address] [phone] 11/21/2019 Office Visit Cardiology Kath Carlin PA-C [address] [facility] [place] [address] [phone] Health Maintenance Due Date Last Done Comments [...] on File Type Date Recorded Patient Manager Pharmaceutical Expl anation Advanced Directive Advanced Directive Advanced Directive
--- OUTSIDE RECORDS SUMMARY | 2023-09-26 02:24 | External Medical Summary | Summary of Care ---
Author Name Unknown Organization [place] [address] Care Team Providers Care Fire Equipment Operator Name Role Phone Fabian Du MD Primary Care Provider [phone] Reason for Visit * Reason Comments Appointment FYI Encounter Details Date Type Department Care Team Description 06/25/2019 Telephone Family Practice [facility] [address] [place] [address] Fabian Du III, MD [address] [place], [place] [id number] Appointment; FYI Allergies No Known Allergiesdocumented as [...] 400 Units by mouth daily. 0 Active [place]-3 Fatty Acids (OMEGA 3 500) 500 MG [...] 03/24/2019 Active Azelastine HCl 0.1 % nasal sprayIndications:Care Services Manager alison rhinitis USE 2 SPRAY(S) IN [...] haven't been able to get Christen on [employer]. The patien'ts is waiting for a call back. They were told the appointment was cancelled, but it is still on the schedule. I am not finding anyappointments after 4pm to accomodate the patient's scheduling request. Please call the patient's at [phone] regarding this appointment. Thank you. * Telephone Encounter - Christen Salmon OSA - 06/25/2019 12:53 PM EDT LMOM asking patient to call to reschedule ER follow-up that is scheduled for 06/25/2019 7:00pm, appt double booked Dr. Du's schedule. documented in this encounter Plan of Treatment Upcoming Encounters Date Type Specialty Care Team Description 07/30/2019 Office Visit Family Medicine Fabian Du III, MD 200 [facility] [place] [address] [phone] 11/21/2019 Office Visit Cardiology Kath Carlin PA-C 132 [facility] [place] [address] [phone] Health Maintenance Due Date Last Done Comments [...] Documents on File Type Date Recorded Patient Glass Vial Bending Conveyor Feeder Expl anation Advanced Directive Advanced Directive Advanced Directive
--- OUTSIDE RECORDS SUMMARY | 2023-09-26 02:24 | External Medical Summary | Summary of Care ---
Author Name Unknown Organization [place] [address] Care Team Providers Care Car Washer Name Role Phone Fabian Du MD Primary Care Provider [phone] Encounter Details Date Type Department Care Team Description 06/23/2019 Scan Encounter Unspecified Department <No scans attached> Allergies No Known Allergiesdocumented as of this encounter (statuses as of 06/24/2019) Medications Medication Sig Dispensed Refills Start Date [...] (PROAIR HFA) 108 (90 BASE) MCG/ACT inhalerIndications:Ac [place] bronchitis, antibiotics not indicated Inhale 2 Puffs [...] Units by mouth daily. 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 Manager alison rhinitis USE 2 SPRAY(S) IN EACH NOSTRIL TWICE DAILY 90 mL 1 04/03/2019 Active furosemide (LASIX) 40 MG Tablet TAKE 1 TABLET BY MOUTH ONCE DAILY 90 Tab 1 06/02/2019 Active documented as of this encounter (statuses as of 06/24/2019) Active Problems Problem Noted Date Dilated aortic [...] as of this encounter (statuses as of 06/24/2019) Resolved Problems Problem Noted Date Resolved Date Dyslipidemia, goal LDL below 100 06/01/2014 12/08/2015 Hypoactive thyroid 01/07/2013 12/11/2016 Bronchiectasis 04/18/2003 06/12/2017 documented as of this encounter (statuses as of 06/24/2019) Immunizations Name Administration Dates Next Due Pneumococcal [...] Family Medicine Fabian Du III, MD 200 [place] [address] [phone] 11/21/2019 Office Visit Cardiology Kath Carlin PA-C 132 [facility] [place] [address] [phone] Health Maintenance Due Date Last Done Comments [...] Documents on File Type Date Recorded Patient Outpatient Phlebotomist Expl anation Advanced Directive Advanced Directive Advanced Directive
--- OUTSIDE RECORDS SUMMARY | 2023-09-26 02:24 | External Medical Summary | Summary of Care ---
Author Name Unknown Organization [place] [address] Care Team Providers Care Graphic Specialist Name Role Phone Fabian Du MD Primary Care Provider [phone] Reason for Visit * Reason Comments Emergency Department Follow-Up Encounter Details Date Type Department Care Team Description 06/24/2019 Telephone Family Practice [facility] [address] [place], [place] [id number] Fabian Du III, MD 200 [place] [address] [phone] Emergency Department Follow-Up Allergies No Known Allergiesdocumented as of this [...] (PROAIR HFA) 108 (90 BASE) MCG/ACT inhalerIndications:Ac j[place] bronchitis, antibiotics not indicated Inhale 2 Puffs [...] 400 Units by mouth daily. 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 Dizzy. Didn't go to work Patient concerns today: No Placed with Dr. Du on Sunday evening 7 p.m. . Needed an after 4 p.m appointment * Telephone Encounter - Sydney Salgado OSA - 06/24/2019 4:11 PM EDT Reason for patient's call: [facility] ER follow up for headache and dizziness Caller was transferred to Mandy at the dedicated phone nurse line. documented in this encounter Plan of Treatment Upcoming Encounters Date Type Specialty Care Team Description 06/25/2019 Office Visit Family Medicine Fabian Du III, MD 200 [facility] [place] [address] [phone] 07/30/2019 Office Visit Family Medicine Fabian Du III, MD 200 [facility] [place] [address] [phone] 11/21/2019 Office Visit Cardiology Kath Carlin PA-C 132 [facility] [place] [address] [phone] Health Maintenance Due Date Last Done Comments [...] Documents on File Type Date Recorded Patient Pest Control Service Representative Expl anation Advanced Directive Advanced Directive Advanced Directive
--- OUTSIDE RECORDS SUMMARY | 2023-09-26 02:24 | External Medical Summary | Summary of Care ---
Author Name Unknown Organization [place] [address] Care Team Providers Care Roll Table Operator Name Role Phone Fabian Du MD Primary Care Provider [phone] Reason for Visit * Reason Comments Appointment FYI Encounter Details Date Type Department Care Team Description 06/25/2019 Telephone Family Practice [facility] 200 [place] [address] Fabian Du III, MD 200 [place], [place] [id number] Appointment; FYI Allergies No Known Allergiesdocumented as of this encounter (statuses as of 06/25/2019) Medications Medication Sig Dispensed Refills Start Date [...] 400 Units by mouth daily. 0 Active [place]-3 Fatty Acids (OMEGA 3 500) 500 MG [...] 03/24/2019 Active Azelastine HCl 0.1 % nasal sprayIndications:Gum Worker alison rhinitis USE 2 SPRAY(S) IN EACH NOSTRIL TWICE DAILY 90 mL 1 04/03/2019 Active furosemide (LASIX) 40 MG Tablet TAKE 1 TABLET BY MOUTH ONCE DAILY 90 Tab 1 06/02/2019 Active documented as of this encounter (statuses as of 06/25/2019) Active Problems Problem Noted Date Dilated aortic [...] as of this encounter (statuses as of 06/25/2019) Resolved Problems Problem Noted Date Resolved Date Dyslipidemia, goal LDL below 100 06/01/2014 12/08/2015 Hypoactive thyroid 01/07/2013 12/11/2016 Bronchiectasis 04/18/2003 06/12/2017 documented as of this encounter (statuses as of 06/25/2019) Immunizations Name Administration Dates Next Due Pneumococcal [...] haven't been able to get Christen on [employer]. The patien'ts is waiting for a call back. They were told the appointment was cancelled, but it is still on the schedule. I am not finding anyappointments after 4pm to accomodate the patient's scheduling request. Please call the patient's at [phone] regarding this appointment. Thank you. * Telephone Encounter - Christen Salmon OSA - 06/25/2019 12:53 PM EDT LMOM asking patient to call to reschedule ER follow-up that is scheduled for 06/25/2019 7:00pm, appt double booked Dr. Du's schedule. documented in this encounter Plan of Treatment Upcoming Encounters Date Type Specialty Care Team Description 07/30/2019 Office Visit Family Medicine Fabian Du III, MD 200 [facility] [place] [address] [phone] 11/21/2019 Office Visit Cardiology Kath Carlin PA-C 132 [facility] [place] [address] [phone] Health Maintenance Due Date Last Done Comments [...] on File Type Date Recorded Patient Manufacturing Analyst Expl anation Advanced Directive Advanced Directive Advanced Directive
--- OUTSIDE RECORDS SUMMARY | 2023-09-26 02:24 | External Medical Summary | Summary of Care ---
Author Name Unknown Organization [place] [address] Care Team Providers Care Tree Topper Name Role Phone Fabian Du MD Primary Care Provider [phone] Reason for Visit * Reason Comments Appointment FYI Encounter Details Date Type Department Care Team Description 06/25/2019 Telephone Family Practice [facility] [address] [place], [place] [id number] Fabian Du III, MD 200 [place] [address] [phone] Appointment; FYI Allergies No Known Allergiesdocumented as [...] 400 Units by mouth daily. 0 Active [place]-3 Fatty Acids (OMEGA 3 500) 500 MG [...] 03/24/2019 Active Azelastine HCl 0.1 % nasal sprayIndications:Storage Management Consultant alison rhinitis USE 2 SPRAY(S) IN EACH [...] encounter Miscellaneous Notes * Telephone Encounter - Latosha Jett OSA [...] assistance. I haven't been able to get Winkler on [employer]!. The patien'ts is waiting for a call back. They were told the appointment was cancelled, but it is still on the schedule. I am not finding anyappointments after 4pm to accomodate the patient's scheduling request. Please call the patient's at [phone] regarding this appointment. Thank you. * Telephone Encounter - Christen Samlon OSA - 06/25/2019 12:53 PM EDT LMOM asking patient to call to reschedule ER follow-up that is scheduled for 06/25/2019 7:00pm, appt double booked Dr. Du's schedule. documented in this encounter Plan of Treatment Upcoming Encounters Date Type Specialty Care Team Description 06/25/2019 Office Visit Family Medicine Fabian Du III, MD 200 [facility] [place] [address] [phone] 07/30/2019 Office Visit Family Medicine Fabian Du III, MD 200 [facility] [place] [address] [phone] 11/21/2019 Office Visit Cardiology Kath Carlin PA-C 132 [facility] [place] [address] [phone] Health Maintenance Due Date Last Done Comments [...] Documents on File Type Date Recorded Patient Commercial Instructor Supervisor Expl anation Advanced Directive Advanced Directive Advanced Directive
--- OUTSIDE RECORDS SUMMARY | 2023-09-26 02:24 | External Medical Summary | Summary of Care ---
Author Name Unknown Organization [place] [address] Care Team Providers Care Plaster Applicator Name Role Phone Dayanna Gómez MD Primary Care Provider [phone] Reason for Visit * Reason Comments eRx-Medication Refill Encounter Details Date Type Department Care Team Description 06/01/2019 Refill Family Practice [facility] [address] [place] [address] Dayanna Gómez III, MD 200 [place] [address] [phone] Allergies No Known Allergiesdocumented as of this encounter (statuses as of 06/02/2019) Medications Medication Sig Dispensed Refills Start Date [...] 400 Units by mouth daily. 0 Active [place]-3 Fatty Acids (OMEGA 3 500) 500 MG CAPS Take by mouth. 0 Active spironolactone (ALDACTONE) 25 MG Tablet TAKE 1 TABLET BY MOUTH ONCE DAILY IN THE MORNING 90 Tab 1 02/03/2019 Active atorvaSTATin (LIPITOR) 40 MG TabletIndications: CAD [...] ONCE DAILY 90 Tab 1 06/02/2019 Active furosemide (LASIX) 40 MG Tablet TAKE ONE TABLET BY MOUTH ONCE DAILY 30 Tab 10 07/09/2018 06/01/2019 Discontinued documented as of this encounter (statuses as of 06/02/2019) Active Problems Problem Noted Date Dilated aortic [...] as of this encounter (statuses as of 06/02/2019) Resolved Problems Problem Noted Date Resolved Date Dyslipidemia, goal LDL below 100 06/01/2014 12/08/2015 Hypoactive thyroid 01/07/2013 12/11/2016 Bronchiectasis 04/18/2003 06/12/2017 documented as of this encounter (statuses as of 06/02/2019) Immunizations Name Administration Dates Next Due Pneumococcal [...] Miscellaneous Notes * Telephone Encounter - Joseph Kay, [facility] - 06/02/2019 12:18 PM EDT Signed Prescriptions: Disp Refills furosemide (LASIX) 40 MG Tablet 90 Tab 1 Sig: TAKE 1 TABLET BY MOUTH ONCE DAILYAuthorizing Provider: DAYANNA GÓMEZ III User: JOSEPH KAY * Telephone Encounter - Joseph Kay RPh - 06/02/2019 12:16 PM EDT Pending Prescriptions: Disp Refills furosemide (LASIX) 40 MG Tablet [Pharmacy*90 Tab 1 Sig: TAKE 1 TABLET BY MOUTH ONCE DAILY Last Office Visit: 01/22/2019 Next Office Visit: 07/30/2019 Scheduled Provider(s): Dayanna Gómez III, MD If no future appointments scheduled, and last appointment is greater than a year ago, please schedule patient for a follow-up appointment Last date the medication was ordered: 07/09/18 Patient Phone Numbers Labs: Lab Results Component Value Date/Time CREAT 1.0 11/21/2018 01:36 PM POTASSIUM 4.2 11/21/2018 01:36 PM TSH 1.98 07/18/2018 09:57 AM LDLCALC 97 01/14/2019 07:31 AM LDLDIRECT 136 (H) 05/12/2011 02:10 PM ALT 39 11/21/2018 01:36 PM documented in this encounter Plan of Treatment Upcoming Encounters Date Type Specialty Care Team Description 07/30/2019 Office Visit Family Medicine Dayanna Gómez III, MD 200 [facility], [place] [address] [phone] 11/21/2019 Office Visit Cardiology Kath Carlin PA-C [address] [place] [address] [phone] Health Maintenance Due Date Last Done Comments [...] Documents on File Type Date Recorded Patient Cylinder Press Operator Apprentice Expl anation Advanced Directive Advanced Directive Advanced Directive
--- OUTSIDE RECORDS SUMMARY | 2023-09-26 02:25 | External Medical Summary | Summary of Care ---
Author Name Unknown Organization [place] [address] Care Team Providers Care Guidance Director Name Role Phone Fabian Du MD Primary Care Provider [phone] Encounter Details Date Type Department Care Team Description 05/08/2019 Scan Encounter Unspecified Department <No scans attached> Allergies No Known Allergiesdocumented as of this encounter (statuses as of 05/12/2019) Medications Medication Sig Dispensed Refills Start Date [...] (PROAIR HFA) 108 (90 BASE) MCG/ACT inhalerIndications:Ac ho-chunk bronchitis, antibiotics not indicated Inhale 2 Puffs [...] TABS Take by mouth daily. 0 Active furosemide (LASIX) 40 MG Tablet TAKE ONE TABLET BY MOUTH ONCE DAILY 30 Tab 10 07/09/2018 Active vitamin e (AQUASOL E) 400 UNIT Capsule Take 400 Units by mouth daily. 0 Active [place]-3 Fatty Acids (OMEGA 3 500) 500 MG [...] 03/24/2019 Active Azelastine HCl 0.1 % nasal sprayIndications:Weigh And Charge Worker alison rhinitis USE 2 SPRAY(S) IN EACH NOSTRIL TWICE DAILY 90 mL 1 04/03/2019 Active documented as of this encounter (statuses as of 05/12/2019) Active Problems Problem Noted Date Dilated aortic [...] as of this encounter (statuses as of 05/12/2019) Resolved Problems Problem Noted Date Resolved Date Dyslipidemia, goal LDL below 100 06/01/2014 12/08/2015 Hypoactive thyroid 01/07/2013 12/11/2016 Bronchiectasis 04/18/2003 06/12/2017 documented as of this encounter (statuses as of 05/12/2019) Immunizations Name Administration Dates Next Due Pneumococcal [...] Family Medicine Fabian Du III, MD 200 [facility] [place] [address] [phone] 11/21/2019 Office Visit Cardiology Kath Carlin PA-C 132 [facility] [place] [address] [phone] Health Maintenance Due Date Last Done Comments DTaP,Tdap,and Td Vaccines (2 - Td) 09/13/2019 09/13/2009 DIABETES SCREEN EVERY 3 YRS-AGE 45 AND ABOVE 11/21/2021 11/21/2018, 12/24/2017, 11/30/2016, Additional history exists LIPID SCREEN EVERY 5 YRS-MEN AGE 35-75 01/14/2024 01/14/2019, 11/21/2018, 12/24/2017, Additional history exists Influenza Vaccine (FLU shot) Completed 11/2017, 08/03/2016, 08/03/2015, Additional history exists MENINGOCOCCAL (MENACTRA) Aged Out No longer eligible based on patient's age to complete this topic documented as of this encounter Implants Not on filedocumented as of this encounter Advance Directives Documents on File Type Date Recorded Patient Yard Specialist Expl anation Advanced Directive Advanced Directive Advanced Directive
--- OUTSIDE RECORDS SUMMARY | 2023-09-26 02:25 | External Medical Summary | Summary of Care ---
Author Name Unknown Organization [place] [address] Care Team Providers Care Application Development Director Name Role Phone Fabian Du MD Primary Care Provider [phone] Reason for Visit * Reason Comments Congestion Pt c/o congestion/co ugh/headache, dizziness, x 6 days. Pt also c/o sob, nausea, fatigue, diarrhea x 6 days. Pt c/o diaphoresis, chills, and not able to eat Short of Breath Fatigue Cough Encounter Details Date Type Department Care Team Description 05/08/2019 Office Visit Family [facility] [address] [facility] [place] [address] Soo Coon PA-C 132 [facility] [place] [address] [phone] Dehydration*; Abdominal pain, generalized; Diarrhea, unspecified type Allergies No Known Allergiesdocumented as of this encounter (statuses as of 05/08/2019) Medications Medication Sig Dispensed Refills Start Date [...] 400 Units by mouth daily. 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 alison rhinitis USE 2 SPRAY(S) IN EACH NOSTRIL TWICE DAILY 90 mL 1 04/03/2019 Active documented as of this encounter (statuses as of 05/08/2019) Active Problems Problem Noted Date Dilated aortic [...] as of this encounter (statuses as of 05/08/2019) Resolved Problems Problem Noted Date Resolved Date Dyslipidemia, goal LDL below 100 06/01/2014 12/08/2015 Hypoactive thyroid 01/07/2013 12/11/2016 Bronchiectasis 04/18/2003 06/12/2017 documented as of this encounter (statuses as of 05/08/2019) Immunizations Name Administration Dates Next Due Pneumococcal [...] Sign Reading Time Taken Comments Blood Pressure 102/60 05/08/2019 7:40 AM EDT Pulse 72 05/08/2019 7:40 AM EDT Temperature 37.2 C (98.9 F) 05/08/2019 7:40 AM ED T Respiratory Rate 20 05/08/2019 7:40 AM EDT Oxygen Saturation 98% 05/08/2019 7:40 AM EDT Inhaled Oxygen Concentration - - Weight 107.2 kg (236 lb 6 oz) 05/08/2019 7:40 AM EDT Height - - Body Mass Index 35.94 01/22/2019 5:55 PM EST documented in this encounter Progress Notes * Soo Coon PA-C - 05/08/2019 7:47 AM EDT Subjective Placido Woodward is a 58 year old male. Chief Complaint Patient presents with Congestion Pt c/o congestion/cough/headache, dizziness, x 6 days. Pt also c/o sob, nausea, fatigue, diarrhea x6 days. Pt c/o diaphoresis, chills, and not able to eat Short of Breath Fatigue Cough HPI: 6 days cough, congestion then arthralgias, abdominal pain, chills, diarrhea, sweats, felt feverish. +fatigue. Seems to be getting worse. 3 days ago dizziness started. +dry cough. +dyspnea, some chest pain. No abdominal pain, +nausea and dry heaves. PMH: Patient Active Problem List Diagnosis Code Paulo's [...] Current Outpatient Medications Medication Sig Dispense Refill Azelastine HCl 0.1 % nasal spray USE [...] Tab by mouth daily. 90 Tab 3 spironolactone (ALDACTONE) 25 MG Tablet TAKE 1 TABLET BY MOUTH ONCE DAILY IN THE MORNING 90 Tab1 Lincoln-3 Fatty Acids (OMEGA 3 500) 500 MG CAPS Take by mouth. vitamin e (AQUASOL E) 400 UNIT Capsule Take 400 Units by mouth daily. furosemide (LASIX) 40 MG Tablet TAKE ONE TABLET BY MOUTH ONCE DAILY 30 Tab 10 Mometasone Furo-Formoterol Fum (DULERA) 100-5 MCG/ACT Inhaler Inhale 1 Puff by mouth as needed. Multiple Vitamins-Minerals (MENS MULTIPLE VITAMIN/LYCOPENE) TABS Take by mouth daily. HM VITAMIN D3 2000 UNITS PO CAPS 1 CAPSULE DAILY ZYRTEC ALLERGY 10 MG PO TABS one daily ASPIRIN 81 MG PO TABS One daily SUMAtriptan (IMITREX) 50 MG Tablet TAKE ONE TABLET BY MOUTH ONE TIME ONLY,REPEAT AFTER TWO HOURS ASNEEDED MAX OF FOUR TABLETS 12 Tab 0 albuterol (PROAIR HFA) 108 (90 BASE) MCG/ACT inhaler Inhale 2 Puffs by mouth 4 times a day. 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 Negative for fever. HENT: Positive for congestion. Respiratory: Positive for cough and shortness of breath. Gastrointestinal: Positive for diarrhea and nausea. Negative for abdominal pain and vomiting. Musculoskeletal: Positive for arthralgias and myalgias. Objective BP 102/60 | Pulse 72 | Temp (Src) 98.9 (Tympanic) | Resp 20 | Wt 236 lbs 6 oz (107.219kg) | BMI 35.94 kg/m | BSA 2.27 m | SaO2 98% Physical Exam Constitutional: He is oriented to person, place, and time. He appears ill. HENT: Head: Normocephalic and atraumatic. Mouth/Throat: Oropharynx is clear and moist. No oropharyngeal exudate or posterior oropharyngeal edema. Eyes: Pupils are equal, round, and reactive to light. EOM are normal. Neck: Normal range of motion. Neck supple. No hepatojugular reflux and no JVD present. No tracheal deviation present. No thyromegaly present. Cardiovascular: Normal rate and regular rhythm. No murmur heard. Pulmonary/Chest: Effort normal and breath sounds normal. No respiratory distress. Abdominal: Soft. Bowel sounds are normal. There is tenderness in the right lower quadrant, suprapubic area, left upper quadrant and left lower quadrant. Neurological: He is alert and oriented to person, place, and time. Skin: He is diaphoretic. There is pallor. ASSESSMENT/PLAN: Dehydration (Primary) Abdominal pain, generalized Diarrhea, unspecified type Patient with 6 days of diarrhea, dizziness, abdominal pain, cough. Patient is pale and diaphoretic BP is on the low side No fever or tachycardia No chest pain Recommend ER evaluation; declines EMS, his will take him Bipin sanders RN aware Call or return to clinic prn if these symtoms worsen or fail to improve as anticipated. Soo Coon PA-C documented in this encounter Nursing Notes * April Guy LPN - 05/08/2019 7:41 AM EDT Chief Complaint Patient presents with Congestion Pt c/o congestion/cough/headache, dizziness, x 6 days. Pt also c/o sob, nausea, fatigue, diarrhea x6 days. Pt c/o diaphoresis, chills, and not able to eat Short of Breath Fatigue Cough documented in this encounter Plan of Treatment Upcoming Encounters Date Type Specialty Care Team Description 07/30/2019 Office Visit Family Medicine Ana Lauramillie CEVALLOS, Fabian Carlisle MD [address] [place] [address] [phone] 11/21/2019 Office Visit Cardiology Kath Carlin PA-C 132 [facility] [place] [address] [phone] Health Maintenance Due Date Last Done Comments [...] as of this encounter Visit Diagnoses Diagnosis Dehydration- Primary Abdominal pain, generalized Diarrhea, unspecified type documented in this encounter Advance Directives Documents on File Type Date Recorded Patient Rubber Thread Spooler Expl anation Advanced Directive Advanced Directive Advanced Directive"
--- OUTSIDE RECORDS SUMMARY | 2023-09-26 02:25 | External Medical Summary | Summary of Care ---
Author Name Unknown Organization [place] [address] Care Team Providers Care Metal Pattern Maker Name Role Phone Fabian Du MD Primary Care Provider [phone] Reason for Visit * Reason Comments eRx-Medication Refill Encounter Details Date Type Department Care Team Description 04/02/2019 Refill Family Practice [facility] [address] [place] [address] Fabian Du III, MD [address] [place] [address] [phone] Chronic rhinitis Allergies No Known Allergiesdocumented as of this encounter (statuses as of 04/03/2019) Medications Medication Sig Dispensed Refills Start Date [...] 400 Units by mouth daily. 0 Active [place]-3 Fatty Acids (OMEGA 3 500) 500 MG [...] TWICE DAILY 90 mL 1 04/03/2019 Active Azelastine HCl 0.1 % nasal sprayIndications:C hronic rhinitis USE TWO SPRAY(S) IN EACH NOSTRIL TWICE DAILY 30 mL 5 03/19/2018 04/02/2019 Discontinued documented as of this encounter (statuses as of 04/03/2019) Active Problems Problem Noted Date Dilated aortic [...] as of this encounter (statuses as of 04/03/2019) Resolved Problems Problem Noted Date Resolved Date Dyslipidemia, goal LDL below 100 06/01/2014 12/08/2015 Hypoactive thyroid 01/07/2013 12/11/2016 Bronchiectasis 04/18/2003 06/12/2017 documented as of this encounter (statuses as of 04/03/2019) Immunizations Name Dates Previously Given Next Due Pneumococcal Conjugate Vacc, 13 Valent (Prevnar) 08/19/2010 Pneumococcal Conjugate Vaccine, 7 Valent 002 Pneumococcal Polysaccharide PPV23 (Pneumovax) 08/19/2010 Seasonal Influenza, Quadriva lent, No Preserve, IM 08/03/2016 Seasonal Influenza, Trivalen t, with Preserve, 3yr & Above, Split 07/20/2018,08/03/2015,08/03/2014,,08/14/2012,08/26/2009,2002,10/15/2002 TDAP (age 11 and older)(Adacel) 09/13/2009 documented [...] encounter Miscellaneous Notes * Telephone Encounter - Val Awad DO - 04/03/2019 12:15 PM EDT Signed Prescriptions: Disp Refills Azelastine HCl 0.1 % nasal spray 90 mL 1 Sig: USE 2 SPRAY(S) IN EACH NOSTRIL TWICE DAILY Authorizing Provider: VAL AWAD * Telephone Encounter - Anu Simon LPN - 04/03/2019 7:33 AM EDT Pending Prescriptions: Disp Refills Azelastine HCl 0.1 % nasal spray [Pharmac*90 mL 1 Sig: USE 2 SPRAY(S) IN EACH NOSTRIL TWICE DAILY * Telephone Encounter - Anu Simon LPN - 04/03/2019 7:32 AM EDT Pending Prescriptions: Disp Refills Azelastine HCl 0.1 % nasal spray [Pharmac*90 mL 1 Sig: USE 2 SPRAY(S) IN EACH NOSTRIL TWICE DAILY Last Office Visit: 01/22/2019 Next Office Visit: 07/30/2019 Scheduled Provider(s): Fabian Du III, MD Last date the medication was ordered: 03/19/18 Patient Active Problem List Diagnosis Code Paulo's [...] nevi Z13.89 Dilated aortic root (HCC) I77.810 Labs: CREATININE(mg/dL) Selene Dt/Tm Resulted Value Status 11/21/18 1:36P 11/22/18 1.0 FINAL POTASSIUM(mmol/L) Selene Dt/Tm Resulted Value Status 11/21/18 1:36P 11/22/18 4.2 FINAL TSH(uIU/mL) Selene Dt/Tm Resulted Value Status 07/18/18 9:57A 07/18/18 1.98 FINAL LDL (CALCULATED)(mg/dL) Selene Dt/Tm Resulted Value Status 01/14/19 7:31A 01/15/19 97 FINAL LDL DIRECT(REFLEX)(mg/dL) Selene Dt/Tm Resulted Value Status 01/14/19 7:31A 01/15/19 FINAL Value: NOT APPLICABLE ALT(U/L) Selene Dt/Tm Resulted Value Status 11/21/18 1:36P 1/4/19 39 FINAL Hemoglobin AIC Results: No HEMOGLOBIN, A1C components found documented in this encounter Plan of Treatment Upcoming Encounters Date Type Specialty Care Team Description 07/30/2019 Office Visit Family Medicine Ana LauraFabian pinto III, MD [address] [facility] [place] [address] [phone] 11/21/2019 Office Visit Cardiology Kath Carlin PA-C [address] [place] [address] [phone] Health Maintenance Due Date Last Done Comments [...] of this encounter Visit Diagnoses Diagnosis Chronic rhinitis documented in this encounter Advance Directives Patient has advance care planning documents on file. For more information, please contact: [place] [phone]
--- OUTSIDE RECORDS SUMMARY | 2023-09-26 02:26 | External Medical Summary ---
Author Name Unknown Address [facility] [place] [address] Phone Organization K01:[place] [address] [place] [id number] Laboratory Report Ordering Provider Test Date Status RICO ALAN III 01/14/2019 07:31:00 Final Observation Date Value Abnormality Reference Status MYCODE SUBSEQUENT 01/14/2019 13:01 SPECIMEN OBTAINED Final Performing Location [place] [id number]
--- OUTSIDE RECORDS SUMMARY | 2023-09-26 02:26 | External Medical Summary | Summary of Care ---
Author Name Unknown Organization [place] [address] Phone Care Team Providers Care Pooling Operator Name Role Phone Dayanna Gómez III, MD Primary Care Provider [phone] Reason for Visit * Reason Comments eRx-Medication Refill Encounter Details Date Type Department Care Team Description 09/01/2018 Refill Family Practice [facility] [address] [place] [address] Dayanna Gómez III, MD [address] [place] [address] [phone] Hypothyroidism Allergies No Known Allergiesas of this encounter Medications Prescription Sig. Disp. Refills Start Date End Date Status ASPIRIN 81 MG PO TABS One daily Active ZYRTEC ALLERGY 10 MG PO TABS one daily Active ALBUTEROL SULFATE (2.5 MG/3ML) 0.083% IN [facility] one vial every 6 hours as needed Active HM VITAMIN D3 2000 UNITS PO CAPSIndications:Vi tamin D deficiency 1 CAPSULE DAILY 03/22/2014 Active albuterol (PROAIR HFA) 108 (90 [...] Inhale 1 Puff by mouth as needed. 08/03/2016 Active Multiple Vitamins-Minerals (MENS MULTIPLE VITAMIN/LYCOPENE) TABS Take by mouth daily. Active Azelastine HCl 0.1 % nasal sprayIndications:C hronic rhinitis USE TWO SPRAY(S) IN EACH NOSTRIL TWICE DAILY 30 mL 5 03/19/2018 Active potassium chloride ER 10 MEQ TBCR TAKE ONE TABLET BY MOUTH ONCE DAILY 90 Tab 1 04/01/2018 Active lisinopril (PRINIVIL) 20 MG Tablet TAKE ONE TABLET BY MOUTH ONCE DAILY 30 Tab 11 04/01/2018 Active atorvaSTATin (LIPITOR) 40 MG TabletIndications: CAD (coronary artery disease) TAKE ONE TABLET BY MOUTH EVERY OTHER DAY 45 Tab 3 04/29/2018 Active furosemide (LASIX) 40 MG Tablet TAKE ONE TABLET BY MOUTH ONCE DAILY 30 Tab 10 07/09/2018 Active spironolactone (ALDACTONE) 25 MG Tablet TAKE 1 TABLET BY MOUTH ONCE DAILY IN THE MORNING 90 Tab 1 08/05/2018 Active levothyroxine (LEVOXYL) 75 MCG TabletIndications: Hypothyroidism TAKE 1 TABLET BY MOUTH ONCE DAILY IN THE MORNING ON EMPTY STOMACH WITH FULL GLASS OF WATER 90 Tab 1 09/03/2018 Active levothyroxine (LEVOXYL) 75 MCG TabletIndications: Hypothyroidism TAKE ONE TABLET BY MOUTH ONCE DAILY IN THE MORNING ON AN EMPTY STOMACH WITH A FULL GLASS OF WATER 90 Tab 1 03/04/2018 09/01/2018 Discontinued as of this encounter Active Problems Problem Noted Date Dilated aortic root (HCC) 12/11/2016 Encounter for surveillance of abnormal n [...] other virus not elsewhe re classified 12/24/2002 as of this encounter Resolved Problems Problem Noted Date Resolved Date Dyslipidemia, goal LDL below 100 06/01/2014 12/08/2015 Hypoactive thyroid 01/07/2013 12/11/2016 Bronchiectasis (HCC) 04/18/2003 06/12/2017 as of this encounter Immunizations Name Dates Previously Given Next Due Pneumococcal Conjugate Vacc, 13 Valent (Prevnar) 08/19/2010 Pneumococcal Conjugate Vaccine, 7 Valent 002 Pneumococcal Polysaccharide PPV23 (Pneumovax) 08/19/2010 Seasonal Influenza, Quadriva lent, No Preserve, IM 08/03/2016 Seasonal Influenza, Trivalen t, with Preserve, 3yr & Above, Split 08/03/2015,08/03/2014,08/06/2013,,09/18/2011,08/26/2009,2002,10/15/2002 TDAP (age 11 and older)(Adacel) 09/13/2009 as of this encounter Social History Tobacco Use Types Packs/Day Years Used Date Never Smoker Smokeless Tobacco: Former User Chew Quit: 04/21/2012 Comments:quit Alcohol Use Drinks/Week oz/Week Comments Yes 6 12 oz of beer 3.0 Sex Assigned at Date Recorded Not on file as of this encounter Miscellaneous Notes * Telephone Encounter - Dayanna Gómez III, MD - 09/03/2018 9:50 AM EDT Signed Prescriptions: Disp Refills levothyroxine (LEVOXYL) 75 MCG Tablet 90 Tab 1 Sig: TAKE 1 TABLET BY MOUTH ONCE DAILY IN THE MORNING ON EMPTY STOMACH WITH FULL GLASS OF WATER Authorizing Provider: DAYANNA GÓMEZ III * Telephone Encounter - Abi Negrete LPN - 09/03/2018 8:53 AM EDT Pending Prescriptions: Disp Refills levothyroxine (LEVOXYL) 75 MCG Tablet [Ph*90 Tab 1 Sig: TAKE 1 TABLET BY MOUTH ONCE DAILY IN THE MORNING ON EMPTY STOMACH WITH FULL GLASS OF WATER * Telephone Encounter - CadenAbi, REINA - 09/03/2018 8:53 AM EDT Formatting of this note may be different from the original. Pending Prescriptions: Disp Refills levothyroxine (LEVOXYL) 75 MCG Tablet [Ph*90 Tab 1 Sig: TAKE 1 TABLET BY MOUTH ONCE DAILY IN THE MORNING ON EMPTY STOMACH WITH FULL GLASS OF WATER Last Office Visit: 07/17/2018 Next Office Visit: 01/22/2019 Scheduled Provider(s): Dayanna Gómez III, MD If no future appointments scheduled, and last appointment is greater than a year ago, please schedule patient for a follow-up appointment Last date the medication was ordered: 03/04/18 Patient Phone Numbers [facility] [phone] Labs: Lab Results Component Value Date/Time CREAT 1.0 12/24/2017 08:04 AM POTASSIUM 4.0 12/24/2017 08:04 AM TSH 1.98 07/18/2018 09:57 AM LDLCALC 93 12/24/2017 08:04 AM LDLDIRECT 136 (H) 05/12/2011 02:10 PM ALT 44 12/24/2017 08:04 AM in this encounter Plan of Treatment Upcoming Encounters Date Type Specialty Care Team Description 11/21/2018 Office Visit Cardiology Kath Carlin PA-C [address] [facility] [place] [address] [phone] 01/22/2019 Office Visit Family Medicine Dayanna Gómez III, MD [address] [facility] [address] [phone] Health Maintenance Due Date Last Done Comments Influenza Vaccine (FLU shot) (#1) 2018 08/03/2016, 08/03/2015, 08/03/2014, Additional history exists DTaP,Tdap,and Td Vaccines (2 - Td) 09/13/2019 09/13/2009 DIABETES SCREEN EVERY 3 YRS- AGE 45 AND ABOVE 12/24/2020 12/24/2017, 11/30/2016, 11/26/2015, Additional history exists LIPID SCREEN EVERY 5 YRS-MEN AGE 35-75 12/24/2022 12/24/2017, 11/30/2016, 11/26/2015, Additional history exists as of this encounter Implants Not on fileas of this encounter Visit Diagnoses Diagnosis Hypothyroidism Unspecified hypothyroidism in this encounter
--- OUTSIDE RECORDS SUMMARY | 2023-09-26 02:26 | External Medical Summary | Summary of Care ---
Author Name Unknown Organization [place] [address] Care Team Providers Care Research Physicist Name Role Phone Fabian Du MD Primary Care Provider [phone] Reason for Visit * Reason Comments Re-Check Encounter Details Date Type Department Care Team Description 01/22/2019 Office Visit Family Practice [facility] [address] [place], [place] [id number] Fabian Du III, MD [address] [place] [address] [phone] Acquired hypothyroidism*; Post TX syndrome (HCC); Encounter for screening for other suspected endocrine disorder Allergies No Known Allergiesdocumented as of this encounter (statuses as of 01/26/2019) Medications Medication Sig Dispensed Refills Start Date [...] TABS Take by mouth daily. 0 Active Azelastine HCl 0.1 % nasal sprayIndications:Hvac Services Professional alison rhinitis USE TWO SPRAY(S) IN EACH NOSTRIL TWICE DAILY 30 mL 5 03/19/2018 Active lisinopril (PRINIVIL) 20 MG Tablet TAKE ONE TABLET BY MOUTH ONCE DAILY 30 Tab 11 04/01/2018 Active atorvaSTATin (LIPITOR) 40 MG TabletIndications:CAD (coronary artery disease) TAKE ONE TABLET BY MOUTH EVERY OTHER DAY 45 Tab 3 04/29/2018 Active furosemide (LASIX) 40 MG Tablet TAKE ONE TABLET BY MOUTH ONCE DAILY 30 Tab 10 07/09/2018 Active spironolactone (ALDACTONE) 25 MG Tablet TAKE 1 TABLET BY MOUTH ONCE DAILY IN THE MORNING 90 Tab 1 08/05/2018 Active levothyroxine (LEVOXYL) 75 MCG TabletIndications:Hyp othyroidism TAKE 1 TABLET BY MOUTH ONCE DAILY IN THE MORNING ON EMPTY STOMACH WITH FULL GLASS OF WATER 90 Tab 1 09/03/2018 Active potassium chloride ER 10 MEQ TBCR TAKE 1 TABLET BY MOUTH ONCE DAILY 90 Tab 1 10/01/2018 Active vitamin e (AQUASOL E) 400 UNIT Capsule Take 400 Units by mouth daily. 0 Active [place]-3 Fatty Acids (OMEGA 3 500) 500 MG CAPS Take by mouth. 0 Active documented as of this encounter (statuses as of 01/26/2019) Active Problems Problem Noted Date Dilated aortic [...] as of this encounter (statuses as of 01/26/2019) Resolved Problems Problem Noted Date Resolved Date Dyslipidemia, goal LDL below 100 06/01/2014 12/08/2015 Hypoactive thyroid 01/07/2013 12/11/2016 Bronchiectasis 04/18/2003 06/12/2017 documented as of this encounter (statuses as of 01/26/2019) Immunizations Name Dates Previously Given Next Due [...] Vital Signs Vital Sign Reading Time Taken Blood Pressure 118/74 01/22/2019 5:55 PM EST Pulse 66 01/22/2019 5:55 PM EST Temperature 37 C (98.6 F) 01/22/2019 5:5 5 PM EST Respiratory Rate 16 01/22/2019 5:55 PM EST Oxygen Saturation - - Inhaled Oxygen Concentration - - Weight 110.7 kg (244 lb) 01/22/2019 5:5 5 PM EST Height 172.7 cm (5' 8") 01/22/2019 5:55 PM EST Body Mass Index 37.1 01/22/2019 5:55 PM EST documented in this encounter Progress Notes * Fabian Du III, MD - 01/22/2019 6:18 PM EST Subjective: Placido Woodward is a 58 year old male. Chief Complaint Patient presents with Re-Check HPI: Follow up hypertension dyslipidemia Paulo syndrome has some nasal stuffiness using salt water rinses no exertional chest pain shortness of breath claudication or swelling no bleeding urine orbowels LDL under 100 takes 40 mg of atorvastatin every other day has seen Cardiology hypothyroidism. PMH: Patient Active Problem List Diagnosis Code [...] Current Outpatient Medications Medication Sig Dispense Refill [place]-3 Fatty Acids (OMEGA 3 500) 500 MG CAPS Take by mouth. vitamin e (AQUASOL E) 400 UNIT Capsule Take 400 Units by mouth daily. potassium chloride ER 10 MEQ TBCR TAKE 1 TABLET BY MOUTH ONCE DAILY 90 Tab 1 levothyroxine (LEVOXYL) 75 MCG Tablet TAKE 1 TABLET BY MOUTH ONCE DAILY IN THE MORNING ON EMPTYSTOMACH WITH FULL GLASS OF WATER 90 Tab 1 spironolactone (ALDACTONE) 25 MG Tablet TAKE 1 TABLET BY MOUTH ONCE DAILY IN THE MORNING 90 Tab1 furosemide (LASIX) 40 MG Tablet TAKE ONE TABLET BY MOUTH ONCE DAILY 30 Tab 10 atorvaSTATin (LIPITOR) 40 MG Tablet TAKE ONE TABLET BY MOUTH EVERY OTHER DAY 45 Tab 3 lisinopril (PRINIVIL) 20 MG Tablet TAKE ONE TABLET BY MOUTH ONCE DAILY 30 Tab 11 Azelastine HCl 0.1 % nasal spray USE TWO SPRAY(S) IN EACH NOSTRIL TWICE DAILY 30 mL 5 Mometasone Furo-Formoterol Fum (DULERA) 100-5 MCG/ACT Inhaler [...] of patient's allergies indicates: No Known Allergies 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 Pericardial effusion 01/2003 idiopathic, at [facility] Pilonidal cyst without infection Past Surgical History: Procedure Laterality Date BRONCHOSCOPY W/ BRONCHIAL BIOPSY 2002 biopsy, open and bronchoscopy COLONOSCOPY, DIAGNOSTIC (RECTUM) 11/29/2012 COLONOSCOPY FLEXIBLE PROXIMAL DIAGNOSTIC performed by Cristy Dobbs DO at ENDOSCOPY [facility] COLONOSCOPY, DIAGNOSTIC (RECTUM) 11/26/2015 diverticulosis, repeat 10 yrs/COLONOSCOPY FLEXIBLE PROXIMAL DIAGNOSTIC performed by Cristy Dobbs DO at ENDOSCOPY [facility] DENTAL SURGERY PROCEDURE NEC Dental Surgery Procedure DRAINAGE OF HEART SAC 2002 [facility] REMOVAL OF WRIST LESION Objective: The patient is a 58 year old male BP 118/74 | Pulse 66 | Temp 98.6 | Resp 16 | Ht 5' 8" (1.727m) | Wt 244 lbs (110.678kg) | BMI 37.1 kg/m | BSA 2.3 m General: alert, healthy and no distress Eye Exam: PERRLA, EOMI, Conjunctiva are pink and non-injected, sclera clear Oropharynx: no exudate, no erythema, lips, buccal mucosa, and tongue normal and mucous membranes are moist Heart: regular rate & rhythm, no murmurs and no gallops Lungs: lungs clear to auscultation, no rhonchi rales rubs wheezes Extremities: no edema, no clubbing, no cyanosis ASSESSMENT: E03.9 Acquired hypothyroidism (primary encounter diagnosis) 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 Fabian Du III, MD documented in this encounter Nursing Notes * Dot Ramirez RN - 01/22/2019 5:56 PM EST Recheck. documented in this encounter Plan of Treatment Upcoming Encounters Date Type Specialty Care Team Description 03/21/2019 Cardiac Studies Cardiac Studies Gw, Overhead Door Technician [address] [place] [address] [phone] 07/30/2019 Office Visit Family Medicine Fabian Du III, MD 200 [place] [address] [phone] 11/21/2019 Office Visit Cardiology Kath Carlin PA-C [address] [place] [address] [phone] Scheduled Tests Name Priority Associated Diagnoses Order S chedule TSH WITH FREE T4 IF INDICATED Routine Encounter for screening for other suspected endocrine disorder Acquired hypothyroidism Expected: 01/22/2019 (Approximate), Expires: 01/22/2020 Health Maintenance Due Date Last Done Comments [...] Diagnoses Diagnosis Acquired hypothyroidism- Primary Unspecified hypothyroidism Post TX syndrome (HCC) Postmyocardial infarction syndrome Encounter for screening for other suspected endocrine disorder documented in this encounter Advance Directives Patient has advance care planning documents on file. For more information, please contact: [place] [phone]
--- OUTSIDE RECORDS SUMMARY | 2023-09-26 02:26 | External Medical Summary | Summary of Care ---
Author Name Unknown Organization [place] [address] Care Team Providers Care Design Lead Name Role Phone Dayanna Gómez MD Primary Care Provider [phone] Reason for Visit * Reason Comments eRx-Medication Refill Encounter Details Date Type Department Care Team Description 02/02/2019 Refill Family Practice [facility] [address] [place] [address] Dayanna Gómez III, MD [address] [place] [address] [phone] Allergies No Known Allergiesdocumented as of this encounter (statuses as of 02/03/2019) Medications Medication Sig Dispensed Refills Start Date [...] ONCE DAILY 30 Tab 10 07/09/2018 Active levothyroxine (LEVOXYL) 75 MCG TabletIndications: Hypothyroidism TAKE 1 TABLET BY MOUTH ONCE DAILY IN THE MORNING ON EMPTY STOMACH WITH FULL GLASS OF WATER 90 Tab 1 09/03/2018 Active potassium chloride ER 10 MEQ TBCR TAKE 1 TABLET BY MOUTH ONCE DAILY 90 Tab 1 10/01/2018 Active vitamin e (AQUASOL E) 400 UNIT Capsule Take 400 Units by mouth daily. 0 Active [place]-3 Fatty Acids (OMEGA 3 500) 500 MG CAPS Take by mouth. 0 Active spironolactone (ALDACTONE) 25 MG Tablet TAKE 1 TABLET BY MOUTH ONCE DAILY IN THE MORNING 90 Tab 1 02/03/2019 Active spironolactone (ALDACTONE) 25 MG Tablet TAKE 1 TABLET BY MOUTH ONCE DAILY IN THE MORNING 90 Tab 1 08/05/2018 02/02/2019 Discontinued documented as of this encounter (statuses as of 02/03/2019) Active Problems Problem Noted Date Dilated aortic [...] as of this encounter (statuses as of 02/03/2019) Resolved Problems Problem Noted Date Resolved Date Dyslipidemia, goal LDL below 100 06/01/2014 12/08/2015 Hypoactive thyroid 01/07/2013 12/11/2016 Bronchiectasis 04/18/2003 06/12/2017 documented as of this encounter (statuses as of 02/03/2019) Immunizations Name Dates Previously Given Next Due [...] Encounter - Dayanna Gómez III, MD - 02/03/2019 1:14 PM EDT Signed Prescriptions: Disp Refills spironolactone (ALDACTONE) 25 MG Tablet 90 Tab 1 Sig: TAKE 1 TABLET BY MOUTH ONCE DAILY IN THE MORNING Authorizing Provider: DAYANNA GÓMEZ III * Telephone Encounter - Mandy Mazariegos LPN - 02/03/2019 1:01 PM EDT Pending Prescriptions: Disp Refills spironolactone (ALDACTONE) 25 MG Tablet [*90 Tab 1 Sig: TAKE 1 TABLET BY MOUTH ONCE DAILY IN THE MORNING * Telephone Encounter - Mandy Mazariegos LPN - 02/03/2019 12:52 PM EDT Pending Prescriptions: Disp Refills spironolactone (ALDACTONE) 25 MG Tablet [*90 Tab 1 Sig: TAKE 1 TABLET BY MOUTH ONCE DAILY IN THE MORNING Last Office Visit: 01/22/2019 Next Office Visit: 07/30/2019 Scheduled Provider(s): Dayanna Gómez III, MD Last date the medication was ordered: 08/05/18 Patient Active Problem List Diagnosis Code Paulo's [...] Dt/Tm Resulted Value Status 11/21/18 1:36P 11/22/18 39 FINAL Hemoglobin AIC Results: No HEMOGLOBIN, A1C components found documented in this encounter Plan of Treatment Upcoming Encounters Date Type Specialty Care Team Description 03/21/2019 Cardiac Studies Cardiac Studies Gw, Resident Medical Officer [address] [place] [address] [phone] 07/30/2019 Office Visit Family Medicine [place] III, [facility] [address] [facility] [address] [phone] 11/21/2019 Office Visit Cardiology Kath Carlin PA-C [address] [address] [phone] Health Maintenance Due Date Last Done Comments [...] filedocumented as of this encounter Advance Directives Patient has advance care planning documents on file. For more information, please contact: [place] [phone]
--- OUTSIDE RECORDS SUMMARY | 2023-09-26 02:26 | External Medical Summary | Summary of Care ---
Author Name Unknown Organization [place] [address] Care Team Providers Care Service Correspondent Name Role Phone Fabian Du MD Primary Care Provider [phone] Reason for Referral * Precert (Routine) Status Reason Specialty Diagnoses / Procedures Referred By Contact Referred To Contact Closed Precert Cardiac Studies Diagnoses Dilated aortic root (HCC) HTN, goal below 140/90 Pericardial effusion Procedures ECHO, COMPLETE (2D), TRANS-THORACIC Kath Carlin PA-C [address] [place] [address] Reason for Visit * Reason Comments Cardiology Study Echo * Precert (Routine) Status Reason Specialty Diagnoses / Procedures Referred By Contact Referred To Contact Closed Precert Cardiac Studies Diagnoses Dilated aortic root (HCC) HTN, goal below 140/90 Pericardial effusion Procedures ECHO, COMPLETE (2D), TRANS-THORACIC Kath Carlin PA-C [address] [place] [address] Encounter Details Date Type Department Care Team Description 03/21/2019 Cardiac Studies Cardiac Studies, [facility] [address] [place] [address] Gw, Financial Services Education Consultant [address] [place] [address] [phone] Dilated aortic root (HCC)*; HTN, goal below 140/90; Pericardial effusion Allergies No Known Allergiesdocumented as of this encounter (statuses as of 03/24/2019) Medications Medication Sig Dispensed Refills Start Date [...] 0 Active Azelastine HCl 0.1 % nasal sprayIndications:Merchandise Clerk alison rhinitis USE TWO SPRAY(S) IN EACH NOSTRIL TWICE DAILY 30 mL 5 03/19/2018 Active lisinopril (PRINIVIL) 20 MG Tablet TAKE ONE TABLET BY MOUTH ONCE DAILY 30 Tab 11 04/01/2018 Active furosemide (LASIX) 40 MG Tablet TAKE ONE TABLET BY MOUTH ONCE DAILY 30 Tab 10 07/09/2018 Active potassium chloride ER 10 MEQ TBCR TAKE 1 TABLET BY MOUTH ONCE DAILY 90 Tab 1 10/01/2018 Active vitamin e (AQUASOL E) 400 UNIT Capsule Take 400 Units by mouth daily. 0 Active [place]-3 Fatty Acids (OMEGA 3 500) 500 MG [...] OF WATER 90 Tab 3 03/03/2019 Active documented as of this encounter (statuses as of 03/24/2019) Active Problems Problem Noted Date Dilated aortic [...] as of this encounter (statuses as of 03/24/2019) Resolved Problems Problem Noted Date Resolved Date Dyslipidemia, goal LDL below 100 06/01/2014 12/08/2015 Hypoactive thyroid 01/07/2013 12/11/2016 Bronchiectasis 04/18/2003 06/12/2017 documented as of this encounter (statuses as of 03/24/2019) Immunizations Name Dates Previously Given Next Due [...] carmella ilable. documented as of this encounter Progress Notes * Mae Lezama TECH - 03/21/2019 8:13 AM EDT Echo completed today by dialysis technician per provider order. documented in this encounter Miscellaneous Notes * Result Lynn Bernardo RN - 03/24/2019 9:12 AM EDT Letter sent. 03/24/2019 * Result Kath Mckay PA-C - 03/23/2019 3:59 PM EDT Please let ptient know that his echo looks good. Normal LV systolic function. EF 60%. The aortic root is moderate enlarged, 4.5 cm. The ascending aorta is borderline enlarged, 3.9 cm. No pericardial effusion Compared to prior study of 12/06/2017, there is no significant change. Keep f/u as scheduled. No changes at this time. documented in this encounter Plan of Treatment Upcoming Encounters Date Type Specialty Care Team Description 07/30/2019 Office Visit Family Medicine [place] III, Fabian Carlisle MD [address] [facility] [address] [phone] 11/21/2019 Office Visit [facility]C [address] [facility] [address] [phone] Health Maintenance Due Date Last Done Comments [...] Procedure Name Priority Date/Time Associated Diagnosis Comments ECHO, COMPLETE (2D), TRANS-THORACIC Routine 03/21/2019 7:41 AM EDT Dilated aortic root (HCC) HTN, goal below 140/90 Pericardial effusion documented in this encounter Results * ECHO, COMPLETE (2D), TRANS-THORACIC (03/21/2019 7:41 AM EDT) LEFT VENTRICULAR EJECTION FRACTION 60 % [facility] Performing Organization Address City/State/Zipcod e Phone Number [facility] documented in this encounter Visit Diagnoses Diagnosis Dilated aortic root (HCC)- Primary Thoracic aortic ectasia HTN, goal below 140/90 Unspecified essential hypertension Pericardial effusion Unspecified disease of pericardium documented in this encounter Advance Directives Patient has advance care planning documents on file. For more information, please contact: [place] [phone]
--- OUTSIDE RECORDS SUMMARY | 2023-09-26 02:26 | External Medical Summary ---
Author Name Unknown Address [address] [facility] [place] [address] Phone Organization K0G:[facility] [employer] [address] [facility] [place] [address] Laboratory Report Ordering Provider Test Date Status CAROLE RICE 01/14/2019 07:31:00 Final Observation Date Value Abnormality Reference Status Fasting status Patient Ql Reported 01/14/2019 07:32 >8 HOURS Final Triglyceride 01/15/2019 14:19 129 <200 Final TRIGLYCERIDE REFERENCE RANGE S (mg/dL) <150 NORMAL 150-199 BORDERLINE HIGH 200- 499 HIGH >499 VERY HIGH Cholesterol 01/15/2019 14:19 169 <200 F inal TOTAL CHOLESTEROL REFERENCE RANGES(mg/dL) <200 DESIRABLE 200-239 BORDERLINE HIGH >239 HIGH HDL 01/15/2019 14:19 46 >39 Fin al HDL CHOLESTEROL REFERENCE RA NGES(mg/dL) <40 LOW(UNDESIRABLE) >59 HIGH(DESIRABLE) Cholesterol / HDL ratio 01/15/2019 14:19 3.7 Final LDL, (calculated) 01/15/2019 14:19 97 0-129 Final LDL CHOLESTEROL REFERENCE RA NGES(mg/dL) <100 OPTIMAL GOAL FOR HIGH RISK PATIENTS 100-129 NEAR OR ABOVE NORMAL 130-159 BORDERLINE HIGH 160-189 HIGH >189 VERY HIGH LDL, (direct) 01/15/2019 14:19 NOT APPLICABLE 0-12 9 Final Performing Location [facility] [employer] [address] [facility] [place] [address]
--- OUTSIDE RECORDS SUMMARY | 2023-09-26 02:26 | External Medical Summary | Summary of Care ---
Author Name Unknown Organization [place] [address] Care Team Providers Care Grain Roaster Name Role Phone Fabian Du MD Primary Care Provider [phone] Encounter Details Date Type Department Care Team Description 03/24/2019 Orders Only Outcomes Research Department [address] [place] [address] Fabian Simmons CHRA MyCode Research Other*[id number] Allergies No Known Allergiesdocumented as of this [...] 0 Active Azelastine HCl 0.1 % nasal sprayIndications:National Coverage Specialist alison rhinitis USE TWO SPRAY(S) IN EACH [...] 400 Units by mouth daily. 0 Active [place]-3 Fatty Acids (OMEGA 3 500) 500 MG [...] Team Description 07/30/2019 Office Visit Family Medicine [place] III, Fabian Carlisle MD [address] [facility] [address] [phone] 11/21/2019 Office Visit Cardiology Kath Carlin PA-C [address] [facility] [place] [address] [phone] Scheduled Tests Name Priority Associated Diagnoses Order S chedule MYCODE SUBSEQUENT ADULT Routine MyCode Research Other*[id number] Every 6 Months for 2 Occurrences starting 03/24/2019 until 04/12/2020 Health Maintenance Due Date Last Done Comments [...] this encounter Visit Diagnoses Diagnosis MyCode Research Other*[id number] documented in this encounter Advance Directives Patient has advance care planning documents on file. For more information, please contact: [place] [phone]
--- OUTSIDE RECORDS SUMMARY | 2023-09-26 02:26 | External Medical Summary | Summary of Care ---
Author Name Unknown Organization [place] [address] Care Team Providers Care Stage Producer Name Role Phone Fabian Du MD Primary Care Provider [phone] Encounter Details Date Type Department Care Team Description 01/14/2019 [facility] [address] [facility] [place] [address] [facility] [address] [facility] [place] [address] Hyperlipidemia with target LDL less than 100; MyCode Research Other*[id number] Allergies No Known Allergiesdocumented as of this encounter (statuses as of 01/16/2019) Medications Medication Sig Dispensed Refills Start Date [...] (PROAIR HFA) 108 (90 BASE) MCG/ACT inhalerIndications:Ac paimiut bronchitis, antibiotics not indicated Inhale 2 Puffs [...] 0 Active Azelastine HCl 0.1 % nasal sprayIndications:Garage Mechanic alison rhinitis USE TWO SPRAY(S) IN EACH [...] 400 Units by mouth daily. 0 Active [place]-3 Fatty Acids (OMEGA 3 500) 500 MG CAPS Take by mouth. 0 Active documented as of this encounter (statuses as of 01/16/2019) Active Problems Problem Noted Date Dilated aortic [...] as of this encounter (statuses as of 01/16/2019) Resolved Problems Problem Noted Date Resolved Date Dyslipidemia, goal LDL below 100 06/01/2014 12/08/2015 Hypoactive thyroid 01/07/2013 12/11/2016 Bronchiectasis 04/18/2003 06/12/2017 documented as of this encounter (statuses as of 01/16/2019) Immunizations Name Dates Previously Given Next Due [...] carmella ilable. documented as of this encounter Nursing Notes * Data, Entry - 01/15/2019 5:35 AM EST Automated conversion to a Documentation Encounter documented in this encounter Miscellaneous Notes * Result Mara - Lesli Gordon LPN - 01/16/2019 2:54 PM EST Letter 01/16/2019 * Result Kath Mckay PA-C - 01/16/2019 2:48 PM EST Triglycerides greatly improved. Continue current medications documented in this encounter Plan of Treatment Upcoming Encounters Date Type Specialty Care Team Description 01/22/2019 Office Visit Family Medicine [place] III, Fabian Carlisle MD [address] [facility] [place] [address] [phone] 03/21/2019 Cardiac Studies Cardiac Studies Gw, Block Cuber [address] [place] [address] [phone] 11/21/2019 Office Visit Cardiology Kath Carlin PA-C [address] [place] [address] [phone] Health Maintenance Due Date Last Done Comments [...] Procedure Name Priority Date/Time Associated Diagnosis Comments MYCODE SUBSEQUENT ADULT Routine 01/14/2019 7:31 AM EST MyCode Research Other*[id number] LIPID PANEL WITH DIRECT LDL IF TG ABOVE 150 MG/DL Routine 01/14/2019 7:31 AM EST Hyperlipidemia with target LDL less than 100 documented in this encounter Results * MYCODE SUBSEQUENT ADULT (01/14/2019 7:31 AM EST) [facility] SUBSEQUENT SPECIMEN OBTAINED [facility] Performing Organization Address City/State/Zipcod e Phone Number [facility], [address] [facility] [place] [address] * LIPID PANEL WITH DIRECT LDL IF TG ABOVE 150 MG/DL (01/14/2019 7:31 AM EST) HOURS FASTING >8 HOURS hours [facility] TRIGLYCERIDES 129 Comment: TRIGLYCERIDE REFERENCE RANGES (mg/dL) <150 NORMAL 150-199BORDERLINE HIGH 200-499HIGH >499 VERY HIGH <200 mg/dL [facility] CHOLESTEROL 169 Comment: TOTAL CHOLESTEROL REFERENCE RANGES(mg/dL) <200 DESIRABLE 200-239BORDERLINE HIGH >239 HIGH <200 mg/dL [facility] HDL 46 Comment: HDL CHOLESTEROL REFERENCE RANGES(mg/dL) <40LOW(UNDESIRABLE) >59HIGH(DESIRABLE) >39 mg/dL [facility] CHOL/HDL RATIO 3.7 [facility] LDL (CALCULATED) 97 Comment: LDL CHOLESTEROL REFERENCE RANGES(mg/dL) <100 OPTIMAL GOAL FOR HIGH RISK PATIENTS 100-129NEAR OR ABOVE NORMAL 130-159BORDERLINE HIGH 160-189HIGH >189 VERY HIGH 0 - 129 mg/dL [facility] LDL DIRECT(REFLEX) NOT APPLICABLE 0 - 129 mg/dL [facility] Performing Organization Address City/State/Zipcod e Phone Number [facility], [address] [facility] [place] [address] [facility] Phleb Room, [address] [place] [address] documented in this encounter Visit Diagnoses Diagnosis Hyperlipidemia with target LDL less than 100 Other and unspecified hyperlipidemia MyCode Research Other*[id number] documented in this encounter Advance Directives Patient has advance care planning documents on file. For more information, please contact: [place] [phone]
--- OUTSIDE RECORDS SUMMARY | 2023-09-26 02:26 | External Medical Summary | Summary of Care ---
Author Name Unknown Organization [place] [address] Care Team Providers Care Environmental Marketer Name Role Phone Dayanna Gómez MD Primary Care Provider [phone] Reason for Visit * Reason Comments eRx-Medication Refill Encounter Details Date Type Department Care Team Description 03/23/2019 Refill Family Practice [facility] [address] [place] [address] Dayanna Gómez III, MD [address] [place] [address] [phone] Allergies No Known Allergiesdocumented as of this [...] TWICE DAILY 30 mL 5 03/19/2018 Active furosemide (LASIX) 40 MG Tablet TAKE ONE TABLET BY MOUTH ONCE DAILY 30 Tab 10 07/09/2018 Active vitamin e (AQUASOL E) 400 UNIT Capsule Take 400 Units by mouth daily. 0 Active [place]-3 Fatty Acids (OMEGA 3 500) 500 [...] ONCE DAILY 90 Tab 3 03/24/2019 Active lisinopril (PRINIVIL) 20 MG Tablet TAKE ONE TABLET BY MOUTH ONCE DAILY 30 Tab 11 04/01/2018 03/23/2019 Discontinued potassium chloride ER 10 MEQ TBCR TAKE 1 TABLET BY MOUTH ONCE DAILY 90 Tab 1 10/01/2018 03/23/2019 Discontinued documented as of this encounter (statuses [...] Encounter - Dayanna Gómez III, MD - 03/24/2019 2:58 PM EDT Signed Prescriptions: Disp Refills potassium chloride ER 10 MEQ TBCR 90 Tab 1 Sig: TAKE 1 TABLET BY MOUTH ONCE DAILY Authorizing Provider: DAYANNA GÓMEZ III lisinopril (PRINIVIL) 20 MG Tablet 90 Tab 3 Sig: TAKE 1 TABLET BY MOUTH ONCE DAILY Authorizing Provider: DAYANNA GÓMEZ III * Telephone Encounter - Anu Simon LPN - 03/24/2019 2:31 PM EDT Pending Prescriptions: Disp Refills potassium chloride ER 10 MEQ TBCR [Pharma*90 Tab 1 Sig: TAKE 1 TABLET BY MOUTH ONCE DAILY lisinopril (PRINIVIL) 20 MG Tablet [Pharm*90 Tab 3 Sig: TAKE 1 TABLET BY MOUTH ONCE DAILY * Telephone Encounter - Anu Simon LPN - 03/24/2019 2:31 PM EDT Pending Prescriptions: Disp Refills potassium chloride ER 10 MEQ TBCR [Pharma*90 Tab 1 Sig: TAKE 1 TABLET BY MOUTH ONCE DAILY lisinopril (PRINIVIL) 20 MG Tablet [Pharm*90 Tab 3 Sig: TAKE 1 TABLET BY MOUTH ONCE DAILY Last Office Visit: 01/22/2019 Next Office Visit: 07/30/2019 Scheduled Provider(s): Dayanna Gómez III, MD Last date the medication was ordered: 04/01/18, 10/01/18 Patient Active Problem List Diagnosis Code Paulo's [...] Team Description 07/30/2019 Office Visit Family Medicine [place] [facility], Dayanna Carlisle MD [address] [place] [address] 11/21/2019 Office Visit Cardiology Kath Carlin PA-C [address] [facility] [place] [address] [phone] Health Maintenance Due Date Last Done Comments [...] For more information, please contact: [place] [phone]
--- OUTSIDE RECORDS SUMMARY | 2023-09-26 02:26 | External Medical Summary | Summary of Care ---
Author Name Unknown Organization [place] [address] Care Team Providers Care Assorter Laundry Name Role Phone Fabian uD MD Primary Care Provider [phone] Reason for Visit * Reason Comments Test Results Encounter Details Date Type Department Care Team Description 11/22/2018 Telephone Cardiology, [facility] 132 [facility] [place] [address] Kath Carlin PA-C 132 [facility] [place] [address] [phone] Test Results Allergies No Known Allergiesas of this encounter Medications Medication Sig Dispensed Refills Start Date [...] 0 Active Azelastine HCl 0.1 % nasal sprayIndications:Human Resources Benefits Manager alison rhinitis USE TWO SPRAY(S) IN EACH [...] 400 Units by mouth daily. 0 Active [place]-3 Fatty Acids (OMEGA 3 500) 500 MG CAPS Take by mouth. 0 Active as of this encounter Active Problems Problem [...] Hypoactive thyroid 01/07/2013 12/11/2016 Bronchiectasis 04/18/2003 06/12/2017 as of this encounter Immunizations Name Dates Previously Given Next Due Pneumococcal Conjugate Vacc, 13 Valent (Prevnar) 08/19/2010 Pneumococcal Conjugate Vaccine, 7 Valent 002 Pneumococcal Polysaccharide PPV23 (Pneumovax) 08/19/2010 Seasonal Influenza, Quadriva lent, No Preserve, IM 08/03/2016 Seasonal Influenza, Trivalen t, with Preserve, 3yr & Above, Split 07/20/2018,08/03/2015,08/03/2014,,08/14/2012,08/26/2009,2002,10/15/2002 TDAP (age 11 and older)(Adacel) 09/13/2009 as [...] End No recent travel history carmella ilable. as of this encounter Miscellaneous Notes * Telephone Encounter - Gayle Gaviria RN - 11/22/2018 2:27 PM EST Spoke with pt and gave information below. Pt verbalized understanding and will comply. Pt lab work ordered. * Telephone Encounter - Gayle Gaviria RN - 11/22/2018 2:24 PM EST ----- Message from Kath Carlin PA-C sent at 11/22/2018 1:52 PM EST ----- Triglycerides and LDL increased since last lipid panel. Verify he is taking atorvastatin 40 mg daily? Recommend improving diet/exercise/weight loss regimen. Repeat lipid panel in 3-6 months, if no improvement may need to titrate therapy. Other labs are good in this encounter Plan of Treatment Upcoming Encounters Date Type Specialty Care Team Description 01/22/2019 Office Visit Family Medicine Hend[place] III, Fabian Carlisle MD 200 [facility], [place] [address] [phone] 03/21/2019 Cardiac Studies Cardiac Studies [facility], Service Employee [address] [place] [address] [phone] 11/21/2019 Office Visit Cardiology Kath Carlin PA-C [address] [place] [address] [phone] Scheduled Tests Name Priority Associated Diagnoses Order S chedule LIPID PANEL WITH DIRECT LDL IF TG ABOVE 150 MG/DL Routine Hyperlipidemia with target LDL less than 100 Expected: 05/22/2019 (Approximate), Expires: 11/22/2019 Health Maintenance Due Date Last Done Comments DTaP,Tdap,and Td Vaccines (2 - Td) 09/13/2019 09/13/2009 DIABETES SCREEN EVERY 3 YRS- AGE 45 AND ABOVE 11/21/2021 11/21/2018, 12/24/2017, 11/30/2016, Additional history exists LIPID SCREEN EVERY 5 YRS-MEN AGE 35-75 11/21/2023 11/21/2018, 12/24/2017, 11/30/2016, Additional history exists Influenza Vaccine (FLU shot) Completed 11/2017, 08/03/2016, 08/03/2015, Additional history exists as of this encounter Implants Not on fileas of this encounter Visit Diagnoses Diagnosis Hyperlipidemia with target LDL less than 100- Primary Other and unspecified hyperlipidemia in this encounter Advance Directives Patient has advance care planning documents on file. For more information, please contact: [place] [phone]
--- OUTSIDE RECORDS SUMMARY | 2023-09-26 02:26 | External Medical Summary ---
Author Name Unknown Address Unknown Organization [id number]:Performed at [facility] [employer] [address] [place] [address] Laboratory Report Ordering Provider Test Date Status CAROLE RICE 11/21/2018 13:36:00 Final Observation Date Value Abnormality Reference Status Fasting status Patient Ql Reported 11/21/2018 13:38 >8 HOURS Final Triglyceride 11/22/2018 00:06 290 Above high normal <2 00 Final TRIGLYCERIDE REFERENCE RANGE S (mg/dL) <150 NORMAL 150-199 BORDERLINE HIGH 200- 499 HIGH >499 VERY HIGH Cholesterol 11/22/2018 00:06 170 <200 F inal TOTAL CHOLESTEROL REFERENCE RANGES(mg/dL) <200 DESIRABLE 200-239 BORDERLINE HIGH >239 HIGH HDL 11/22/2018 00:06 38 Below low normal >39 Final HDL CHOLESTEROL REFERENCE RA NGES(mg/dL) <40 LOW(UNDESIRABLE) >59 HIGH(DESIRABLE) Cholesterol / HDL ratio 11/22/2018 00:06 4.5 Final LDL, (calculated) 11/22/2018 00:06 UNINTERPRETABLE RESULT 0-129 Final LDL CHOLESTEROL REFERENCE RA NGES(mg/dL) <100 OPTIMAL GOAL FOR HIGH RISK PATIENTS 100-129 NEAR OR ABOVE NORMAL 130-159 BORDERLINE HIGH 160-189 HIGH >189 VERY HIGH LDL, (direct) 11/22/2018 00:28 108 0-129 Final LDL CHOLESTEROL REFERENCE RA NGES(mg/dL) <100 OPTIMAL GOAL FOR HIGH RISK PATIENTS 100-129 NEAR OR ABOVE NORMAL 130-159 BORDERLINE HIGH 160-189 HIGH >189 VERY HIGH Performing Location Performed at [facility] [address] [place] [address]
--- OUTSIDE RECORDS SUMMARY | 2023-09-26 02:26 | External Medical Summary | Summary of Care ---
Author Name Unknown Organization [place] [address] Care Team Providers Care Safety And Security Officer Name Role Phone Fabian Du MD Primary Care Provider [phone] Reason for Visit * Reason Comments Medication Refill Encounter Details Date Type Department Care Team Description 02/07/2019 Refill Family Practice [facility] [address] [place], [place] [id number] Fabian Du III, MD [address] [place] [address] [phone] CAD (coronary artery disease) Allergies No Known Allergiesdocumented as of this encounter (statuses as of 02/07/2019) Medications Medication Sig Dispensed Refills Start Date [...] 400 Units by mouth daily. 0 Active [place]-3 Fatty Acids (OMEGA 3 500) 500 MG CAPS Take by mouth. 0 Active spironolactone (ALDACTONE) 25 MG Tablet TAKE 1 TABLET BY MOUTH ONCE DAILY IN THE MORNING 90 Tab 1 02/03/2019 Active atorvaSTATin (LIPITOR) 40 MG TabletIndications: CAD (coronary artery disease) Take 1 Tab by mouth daily. 90 Tab 3 02/07/2019 Active atorvaSTATin (LIPITOR) 40 MG TabletIndications: CAD (coronary artery disease) TAKE ONE TABLET BY MOUTH EVERY OTHER DAY 45 Tab 3 04/29/2018 02/07/2019 Discontinued documented as of this encounter (statuses as of 02/07/2019) Active Problems Problem Noted Date Dilated aortic [...] as of this encounter (statuses as of 02/07/2019) Resolved Problems Problem Noted Date Resolved Date Dyslipidemia, goal LDL below 100 06/01/2014 12/08/2015 Hypoactive thyroid 01/07/2013 12/11/2016 Bronchiectasis 04/18/2003 06/12/2017 documented as of this encounter (statuses as of 02/07/2019) Immunizations Name Dates Previously Given Next Due [...] encounter Miscellaneous Notes * Telephone Encounter - Kelly Mitchell DO - 02/07/2019 9:06 AM EDT Signed Prescriptions: Disp Refills atorvaSTATin (LIPITOR) 40 MG Tablet 90 Tab 3 Sig: Take 1 Tab by mouth daily. Authorizing Provider: KELLY MITCHELL * Telephone Encounter - Donna Perera, plug stitcher - 02/07/2019 8:34 AM EDT Pt's calling to request a 90-day supply. Pended order for same. If appropriate, please approve. Pending Prescriptions: Disp Refills atorvaSTATin (LIPITOR) 40 MG Tablet 90 Tab 3 Sig: Take 1 Tab by mouth daily. Last Office Visit: 01/22/2019 Next Office Visit: 07/30/2019 Scheduled Provider(s): Fabian Du III, MD If no future appointments scheduled, and last appointment is greater than a year ago, please schedule patient for a follow-up appointment Last date the medication was ordered: 04/29/2018 Patient Phone Numbers Labs: Lab Results Component Value Date/Time CREAT 1.0 11/21/2018 01:36 PM POTASSIUM 4.2 11/21/2018 01:36 PM TSH 1.98 07/18/2018 09:57 AM LDLCALC 97 01/14/2019 07:31 AM LDLDIRECT 136 (H) 05/12/2011 02:10 PM ALT 39 11/21/2018 01:36 PM documented in this encounter Plan of Treatment Upcoming Encounters Date Type Specialty Care Team Description 03/21/2019 Cardiac Studies Cardiac Studies Gw, [place] [facility] [address] [place] [address] [phone] 07/30/2019 Office Visit Family Medicine Fabian Du III, MD [address] [place] [address], [place] [address] [phone] 11/21/2019 Office Visit Cardiology Kath Carlin PA-C [address] [place] [address] [phone] Health Maintenance Due Date Last Done Comments [...] Coronary atherosclerosis of unspecified type of vessel, grindstone or graft documented in this encounter Advance Directives Patient has advance care planning documents on file. For more information, please contact: [place] [phone]
--- OUTSIDE RECORDS SUMMARY | 2023-09-26 02:26 | External Medical Summary | Summary of Care ---
Author Name Unknown Organization [place] [address] Care Team Providers Care Children'S Program Coordinator Name Role Phone Fabian Du MD Primary Care Provider [phone] Reason for Referral * Precert (Routine) Status Reason Specialty Diagnoses / Procedures Referred By Contact Referred To Contact Closed Precert Cardiac Studies Diagnoses Dilated aortic root (HCC) HTN, goal below 140/90 Pericardial effusion Procedures ECHO, COMPLETE (2D), TRANS-THORACIC Kath Carlin PA-C [address] [place] [address] Reason for Visit * Reason Comments Cardiology Study Echo * Precert (Routine) Status Reason Specialty Diagnoses / Procedures Referred By Contact Referred To Contact Closed Precert Cardiac Studies Diagnoses Dilated aortic root (HCC) HTN, goal below 140/90 Pericardial effusion Procedures ECHO, COMPLETE (2D), TRANS-THORACIC Kath Carlin PA-C [address] [place] [address] Encounter Details Date Type Department Care Team Description 03/21/2019 Cardiac Studies Cardiac Studies, [facility] [address] [place] [address] Gw, Ballast Regulator Operator [address] [place] [address] [phone] Dilated aortic root (HCC)*; HTN, goal below 140/90; Pericardial effusion Allergies No Known Allergiesdocumented as of this encounter (statuses as of 03/21/2019) Medications Medication Sig Dispensed Refills Start Date [...] 0 Active Azelastine HCl 0.1 % nasal sprayIndications:Brake Repairer Hydraulic alison rhinitis USE TWO SPRAY(S) IN EACH [...] 400 Units by mouth daily. 0 Active [place]-3 Fatty Acids (OMEGA 3 500) 500 MG [...] as of this encounter (statuses as of 03/21/2019) Active Problems Problem Noted Date Dilated aortic [...] as of this encounter (statuses as of 03/21/2019) Resolved Problems Problem Noted Date Resolved Date Dyslipidemia, goal LDL below 100 06/01/2014 12/08/2015 Hypoactive thyroid 01/07/2013 12/11/2016 Bronchiectasis 04/18/2003 06/12/2017 documented as of this encounter (statuses as of 03/21/2019) Immunizations Name Dates Previously Given Next Due [...] 8:13 AM EDT Echo completed today by vp of technology per provider order. documented in this encounter Plan of Treatment Upcoming Encounters Date Type Specialty Care Team Description 07/30/2019 Office Visit Family Medicine [place] III, Fabian [place] MD [address] [facility] [address] [phone] 11/21/2019 Office Visit Cardiology Kath Carlin PA-C [address] [facility] [place] [address] [phone] Health Maintenance Due Date Last Done Comments [...] For more information, please contact: [place] [phone]
--- OUTSIDE RECORDS SUMMARY | 2023-09-26 02:26 | External Medical Summary ---
Author Name Unknown Address [address] [place] [address] Phone Organization K01:[facility] [address] [id number] Laboratory Report Ordering Provider Test Date Status CAROLE RICE 11/21/2018 13:36:00 Final Observation Date Value Abnormality Reference Status BUN 11/22/2018 00:04 14 6-20 Fin al Creatinine 11/22/2018 00:04 1.0 0.6-1.2 Fi nal GFR should be used to assess renal function. Plasma/Serum creatinine may not be able to properly reflect renal function in some cases. E Glom Filt Rate 11/22/2018 00:04 >60.0 >60 Final If patient is [place] an, multiply estimated GFR by 1.159. Sodium 11/22/2018 00:04 139 135-146 Fin al Potassium 11/22/2018 00:04 4.2 3.5-5.1 Fin al Cl 11/22/2018 00:04 104 98-107 Fin al CO2 11/22/2018 00:04 25 22-32 Fin al Anion gap 11/22/2018 00:04 10 7-15 Fin al Glucose 11/22/2018 00:04 97 70-120 Fin al Albumin 11/22/2018 00:04 4.2 3.8-5.0 Fin al AST (Aspartate aminotransferase) 11/22/2018 00:04 34 10-50 Final RESULT MAY BE FALSELY ELEVAT ED DUE TO HEMOLYSIS Alk Phos 11/22/2018 00:04 53 0-153 Fin al Bilirubin, Total 11/22/2018 00:04 0.4 0-1.2 Final Calcium 11/22/2018 00:04 9.4 8.4-10.2 Fin al Protein 11/22/2018 00:04 6.4 6.0-8.3 Fin al ALT (Alanine aminotransferase) 11/22/2018 00:04 39 10-50 Final Performing Location [facility] [address] [facility] [address]
--- OUTSIDE RECORDS SUMMARY | 2023-09-26 02:26 | External Medical Summary | Summary of Care ---
Author Name Unknown Organization [place] [address] Care Team Providers Care Metal Smelter Name Role Phone Dayanna Gómez MD Primary Care Provider [phone] Reason for Visit * Reason Comments eRx-Medication Refill Encounter Details Date Type Department Care Team Description 09/29/2018 Refill Family Practice [facility] [address] [place] [address] Dayanna Gómez III, MD [address] [place] [address] [phone] Allergies No Known Allergiesas of this encounter Medications Medication Sig Dispensed Refills Start Date End Date Status ASPIRIN 81 MG PO TABS One daily 0 Active ZYRTEC ALLERGY 10 MG PO TABS one daily 0 Active ALBUTEROL SULFATE (2.5 MG/3ML) 0.083% IN [facility] one vial every 6 [...] ONCE DAILY 90 Tab 1 10/01/2018 Active potassium chloride ER 10 MEQ TBCR TAKE ONE TABLET BY MOUTH ONCE DAILY 90 Tab 1 04/01/2018 09/29/2018 Discontinued as of this encounter Active Problems [...] Encounter - Dayanna Gómez III, MD - 10/01/2018 10:47 AM EST Signed Prescriptions: Disp Refills potassium chloride ER 10 MEQ TBCR 90 Tab 1 Sig: TAKE 1 TABLET BY MOUTH ONCE DAILY Authorizing Provider: DAYANNA GÓMEZ III * Telephone Encounter - Anu Simon LPN - 10/01/2018 7:59 AM EST Pending Prescriptions: Disp Refills potassium chloride ER 10 MEQ TBCR [Pharma*90 Tab 1 Sig: TAKE 1 TABLET BY MOUTH ONCE DAILY * Telephone Encounter - Anu Simon LPN - 10/01/2018 7:58 AM EST Pending Prescriptions: Disp Refills potassium chloride ER 10 MEQ TBCR [Pharma*90 Tab 1 Sig: TAKE 1 TABLET BY MOUTH ONCE DAILY Last Office Visit: 07/17/2018 Next Office Visit: 01/22/2019 Scheduled Provider(s): Dayanna Gómez III, MD Last date the medication was ordered: 04/01/18 Patient Active Problem List Diagnosis Code Paulo's [...] Labs: CREATININE(mg/dL) Selene Dt/Tm Resulted Value Status 12/24/17 8:04A 12/24/17 1.0 FINAL POTASSIUM(mmol/L) Selene Dt/Tm Resulted Value Status 12/24/17 8:04A 12/24/17 4.0 FINAL TSH(uIU/mL) Selene Dt/Tm Resulted Value Status 07/18/18 9:57A 07/18/18 1.98 FINAL LDL (CALCULATED)(mg/dL) Selene Dt/Tm Resulted Value Status 12/24/17 8:04A 12/24/17 93 FINAL LDL DIRECT(REFLEX)(mg/dL) [place] Dt/Tm Resulted Value Status 12/24/17 8:04A 12/24/17 FINAL Value: NOT APPLICABLE ALT(U/L) Selene Dt/Tm Resulted Value Status 12/24/17 8:04A 12/24/17 44 FINAL Hemoglobin AIC Results: No HEMOGLOBIN, A1C components found in this encounter Plan of Treatment Upcoming Encounters Date Type Specialty Care Team Description 11/21/2018 Office Visit Cardiology Kath Carlin PA-C [address] [place] [address] [phone] 01/22/2019 Office Visit Family Medicine Dayanna Gómez III, MD 200 [facility], [place] [id number] Health Maintenance Due Date Last Done Comments [...] Implants Not on fileas of this encounter Advance Directives Patient has advance care planning documents on file. For more information, please contact: [place] [phone]
--- OUTSIDE RECORDS SUMMARY | 2023-09-26 02:26 | External Medical Summary | Summary of Care ---
Author Name Unknown Organization [facility] [place] [address] Care Team Providers Care Radiation Protection Specialist Name Role Phone Fabian uD MD Primary Care Provider [phone] Reason for Referral * Precert (Routine) Status Reason Specialty Diagnoses / Procedures Referred By Contact Referred To Contact Pending Review Precert Cardiac Studies Diagnoses Dilated aortic root (HCC) HTN, goal below 140/90 Pericardial effusion Procedures ECHO, COMPLETE (2D), TRANS-THORACIC Kath Carlin PA-C [address] [place] [address] Reason for Visit * Reason Comments Follow Up Encounter Details Date Type Department Care Team Description 11/21/2018 Office Visit Cardiology, [facility] [address] [address] Kath Carlin PA-C [address] [place] [address] [phone] Dilated aortic root (HCC)*; HTN, goal below 140/90; Pericardial effusion Allergies No Known Allergiesas of this encounter [...] 0 Active Azelastine HCl 0.1 % nasal sprayIndications:Media Professional alison rhinitis USE TWO SPRAY(S) IN [...] 400 Units by mouth daily. 0 Active [place]-3 Fatty Acids (OMEGA 3 500) 500 MG [...] history carmella ilable. as of this encounter Last Filed Vital Signs Vital Sign Reading Time Taken Blood Pressure 110/62 11/21/2018 12:57 PM EST Pulse 60 11/21/2018 12:57 PM EST Temperature - - Respiratory Rate 16 11/21/2018 12:5 7 PM EST Oxygen Saturation - - Inhaled Oxygen Concentration - - Weight 112 kg (247 lb) 11/21/2018 12:57 PM EST Height - - Body Mass Index 37.56 11/21/2018 12:57 PM EST in this encounter Progress Notes * Kath Carlin PA-C - 11/21/2018 1:09 PM EST 11/21/2018 Cardiology F/U: History of Present Illness: Mr. Woodward is a 58 year old male who presents today for routine cardiology follow-up. Last clinic evaluation in November 2017 with the undersigned. 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 He was discharged on ibuprofen without recurrent symptoms. F/U echocardiograms demonstrated normal pericardium without pericardial effusion, normal EF, and no significant valvular disease with dilated aortic root at 4.5 cm, stable per echo in 11/2016 and 2017. Due to atypical chest pain last year, he underwent dobutamine stress echo which was negative for inducible ischemia. No recurrent chest pain. . Other history significant for inflammatory pulmonary disease for which he follows with [facility], dyslipidemia, hepatic steatosis, hypertension, obesity, and chronic diastolic HF controlled on low dosefurosemide. Presents today feeling relatively well. He offers no acute cardiac complaints. No recent chest painor unusual shortness of breath. No dizziness or lightheadedness. No palpitations. Weight is stable.No worsening lower extremity edema. 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 No exertional symptoms. No chest pain, shortness of breath, palpitations, [...] Substance Use Topics Alcohol use: Yes Alcohol/week: 3.0 oz Types: 6 12 oz of beer per week Drug use: No Review of patient's allergies indicates: No Known Allergies Current Outpatient Medications Medication Sig Dispense Refill Holliston-3 Fatty Acids (OMEGA 3 500) 500 MG [...] PO TABS One daily OBJECTIVE/PHYSICAL EXAMINATION: BP 110/62 | Pulse 60 | Resp 16 | Wt 247 lbs (112.038kg) | BMI 37.56 kg/m | BSA 2.32 m Wt Readings from Last 3 Encounters: 11/21/18 112 kg (247 lb) 07/17/18 108.9 kg (240 lb) 11/21/17 111.1 kg (245 lb) General: NAD. A&Ox3. Eyes: Conjunctiva are pink and non-injected, sclera clear Neck: No overt JVD. Chest: Normal respiratory effort Lungs: Clear to auscultation Cardiac Exam: RRR. No murmurs, rubs, or gallops Abdomen: Distended. Obese. +BS. Soft. Extremities: No edema Neuro: Grossly normal exam Psych: Appropriate affect and insight. DATA: EKG performed today and reviewed personally: Sinus bradycardia at 55 bpm. Mild baseline artifact. No significant change from previous Dobutamine stress echo report reviewed, dated 12/24/17: [...] was measured to be 3.7 centimeters at that time. Echocardiogram report reviewed, dated 11/30/16: The examination [...] mildly abnormal (grade I). IMPRESSION and PLAN: 58 year old male 1. History of prior cardiac tamponade /effusion s/p pericardiocentesis in 2002- No recurrence per serial echocardiograms. Stable cardiovascular signs/symptoms 2. Chronic diastolic HF with intermittent edema - stable on current diuretic regimen. Currently well compensated. 3. Dyslipidemia - labs due 4. Hypertension - controlled 5. Obesity - continued weight loss recommended. 6. Dilated aortic root, stable at 4.5 cm per echo 11/2016 and 11/2017 7. Atypical chest pain, resolved. Negative DSE 11/2017 PLAN: Stable cardiac signs/symptoms. Due for updated fasting labs, and he wishes to have these done today. Update echo Spring 2018 to monitor aortic root. He is to continue current medications as listed above. No changes were made at today's visit. Weight loss recommended. Recommend regular aerobic exercise. [place] goal would be minimum of 30 minutes done daily. Exercise can be done in divided time periods if needed. Told to avoid extremes in temperature. The patient agrees to the above plan and will call with additional questions or concerns. ER with all emergencies advised. Follow-up: Return in about 1 year (around 11/21/2019). | Check-out note: Blood work today; schedule echo this spring; Kath Carlin PA-C Department of Cardiology This chart was completed in part utilizing [employer] Speech Voice Recognition Software. Grammatical errors, random word insertions, prounoun errors, and incomplete sentences are an occasional consequence of this system due to software limitations, ambient noise, and hardware issues. Any formal questions or concerns about the content, text, or information contained within the body of this dictation should be directly addressed to the provider for clarification. in this encounter Nursing Notes * Lesli Gordon LPN - 11/21/2018 12:55 PM EST Examination Room: 1 Name: Placido Woodward Date of : (1960). Reason for Visit: follow up / annual Interim Hospitalization(s): denies Problems/Concerns: denies Chest Pain/SOB: denies My [facility] is a way you can talk to your provider online through e-mail. Would you like to sign up? I can activate it for you? NO in this encounter Plan of Treatment Upcoming Encounters Date Type Specialty Care Team Description 01/22/2019 Office Visit Family Medicine [place] III, Fabian Carlisle MD [address] [place] [address] [phone] 03/21/2019 Cardiac Studies Cardiac Studies Gw, Reducing Salon Attendant [address] [address] [phone] 11/21/2019 Office Visit Cardiology Kath Carlin PA-C [address] [address] [phone] Pending Results Name Priority Associated Diagnoses Date/Ti me COMPR METAB PANEL Routine Dilated aortic root (HCC) HTN, goal below 140/90 Pericardial effusion 11/21/2018 1:36 PM EST LIPID PANEL WITH DIRECT LDL IF TG ABOVE 150 MG/DL Routine Dilated aortic root (HCC) HTN, goal below 140/90 Pericardial effusion 11/21/2018 1:36 PM EST Scheduled Tests Name Priority Associated Diagnoses Order S chedule EKG Routine Dilated aortic root (HCC) HTN, goal below 140/90 Expected: 11/21/2018 (Approximate), Expires: 12/22/2019 COMPR METAB PANEL Routine Dilated aortic root (HCC) HTN, goal below 140/90 Pericardial effusion Expected: 11/21/2018 (Approximate), Expires: 12/22/2019 LIPID PANEL WITH DIRECT LDL IF TG ABOVE 150 MG/DL Routine Dilated aortic root (HCC) HTN, goal below 140/90 Pericardial effusion Expected: 11/21/2018 (Approximate), Expires: 12/22/2019 ECHO, COMPLETE (2D), TRANS-THORACIC Routine Dilated aortic root (HCC) HTN, goal below 140/90 Pericardial effusion Expected: 02/19/2019 (Approximate), Expires: 11/21/2019 Health Maintenance Due Date Last Done Comments [...] fileas of this encounter Visit Diagnoses Diagnosis Dilated aortic root (HCC)- Primary Thoracic aortic ectasia HTN, goal below 140/90 Unspecified essential hypertension Pericardial effusion Unspecified disease of pericardium in this encounter Advance Directives Patient has advance care planning documents on file. For more information, please contact: [place] [phone]"
--- OUTSIDE RECORDS SUMMARY | 2023-09-26 02:26 | External Medical Summary | Summary of Care ---
Author Name Unknown Organization [place] [address] Care Team Providers Care Oncology Rep Name Role Phone Dayanna Gómez MD Primary Care Provider [phone] Reason for Visit * Reason Comments eRx-Medication Refill Encounter Details Date Type Department Care Team Description 03/02/2019 Refill Family Practice [facility] [address] [place], [place] [id number] Dayanna Gómez III, MD [address] [place] [address] [phone] Hypothyroidism Allergies No Known Allergiesdocumented as of this encounter (statuses as of 03/03/2019) Medications Medication Sig Dispensed Refills Start Date [...] 400 Units by mouth daily. 0 Active Amber-3 Fatty Acids (OMEGA 3 500) 500 MG [...] OF WATER 90 Tab 3 03/03/2019 Active levothyroxine (LEVOXYL) 75 MCG TabletIndications: Hypothyroidism TAKE 1 TABLET BY MOUTH ONCE DAILY IN THE MORNING ON EMPTY STOMACH WITH FULL GLASS OF WATER 90 Tab 1 09/03/2018 03/02/2019 Discontinued documented as of this encounter (statuses as of 03/03/2019) Active Problems Problem Noted Date Dilated aortic [...] as of this encounter (statuses as of 03/03/2019) Resolved Problems Problem Noted Date Resolved Date Dyslipidemia, goal LDL below 100 06/01/2014 12/08/2015 Hypoactive thyroid 01/07/2013 12/11/2016 Bronchiectasis 04/18/2003 06/12/2017 documented as of this encounter (statuses as of 03/03/2019) Immunizations Name Dates Previously Given Next Due [...] Encounter - Dayanna Gómez III, MD - 03/03/2019 11:47 AM EDT Signed Prescriptions: Disp Refills levothyroxine (LEVOXYL) 75 MCG Tablet 90 Tab 3 Sig: TAKE 1 TABLET BY MOUTH ONCE DAILY IN THE MORNING ON EMPTY STOMACH WITH FULL GLASS OF WATER Authorizing Provider: DAYANNA GÓMEZ III * Telephone Encounter - Mandy Mazariegos LPN - 03/03/2019 9:43 AM EDT Pending Prescriptions: Disp Refills levothyroxine (LEVOXYL) 75 MCG Tablet [Ph*90 Tab 3 Sig: TAKE 1 TABLET BY MOUTH ONCE DAILY IN THE MORNING ON EMPTY STOMACH WITH FULL GLASS OF WATER * Telephone Encounter - Mandy Mazariegos LPN - 03/03/2019 9:42 AM EDT Pending Prescriptions: Disp Refills levothyroxine (LEVOXYL) 75 MCG Tablet [Ph*90 Tab 1 Sig: TAKE 1 TABLET BY MOUTH ONCE DAILY IN THE MORNING ON EMPTY STOMACH WITH FULL GLASS OF WATER Last Office Visit: 01/22/2019 Next Office Visit: 07/30/2019 Scheduled Provider(s): Dayanna Gómez III, MD Last date the medication was ordered: 09/03/18 Patient Active Problem List Diagnosis Code Paulo's [...] Description 03/21/2019 Cardiac Studies Cardiac Studies Gw, Debone Supervisor [address] [address] [phone] 07/30/2019 Office Visit Family Medicine Ana LauraDayanna pinto III, MD [address] [place] [address] [phone] 11/21/2019 Office Visit Cardiology Kath Carlin PA-C [address] [address] [phone] Health Maintenance Due Date Last Done Comments [...] hypothyroidism documented in this encounter Advance Directives Patient has advance care planning documents on file. For more information, please contact: [place] [phone]
--- OUTSIDE RECORDS SUMMARY | 2023-09-26 02:26 | External Medical Summary | Summary of Care ---
Author Name Unknown Organization [place] [address] Phone Care Team Providers Care Masonry Inspector Name Role Phone Fabian Du III, MD Primary Care Provider [phone] Encounter Details Date Type Department Care Team Description 08/20/2018 Scan Encounter Unspecified Department <No scans attached> Allergies No Known Allergiesas of this encounter Medications Prescription Sig. Disp. Refills Start Date End Date Status ASPIRIN 81 MG PO TABS One daily Act natasha ZYRTEC ALLERGY 10 MG PO TABS one daily Active ALBUTEROL SULFATE (2.5 MG/3ML) 0.083% IN NEBU one vial every 6 hours as needed Active HM VITAMIN D3 2000 UNITS PO CAPSIndications:Vitami n D deficiency 1 CAPSULE DAILY 03/22/2014 Activ e albuterol (PROAIR HFA) 108 (90 BASE) MCG/ACT inhalerIndications:Acu te bronchitis, antibiotics not indicated Inhale 2 Puffs [...] daily. Active Azelastine HCl 0.1 % nasal sprayIndications:Chron ic rhinitis USE TWO SPRAY(S) IN EACH NOSTRIL [...] THE MORNING 90 Tab 1 08/05/2018 Active as of this encounter Active Problems [...] Not on file as of this encounter Plan of Treatment Upcoming Encounters Date Type Specialty Care Team Description 11/21/2018 Office Visit Cardiology Kath Carlin PA-C [address] [place] [address] [phone] 01/22/2019 Office Visit Family Medicine Ana Laura III, Fabian [facility]isle [facility] [address] [facility] [address] [phone] Health Maintenance Due Date Last Done Comments [...]
--- OUTSIDE RECORDS SUMMARY | 2023-09-26 02:27 | External Medical Summary | Summary of Care ---
Author Name Unknown Organization [place] [address] Phone Care Team Providers Care Mechanical Project Engineer Name Role Phone Dayanna Gómez III, MD Primary Care Provider [phone] Reason for Visit * Reason Comments eRx-Medication Refill Encounter Details Date Type Department Care Team Description 08/04/2018 Refill Family Practice [facility] [address] [place] [address] Dayanna Gómez III, MD [address] [place] [address] [phone] Allergies No Known Allergiesas of this encounter [...] VITAMIN/LYCOPENE) TABS Take by mouth daily. Active levothyroxine (LEVOXYL) 75 MCG TabletIndications: Hypothyroidism TAKE ONE TABLET BY MOUTH ONCE DAILY IN THE MORNING ON AN EMPTY STOMACH WITH A FULL GLASS OF WATER 90 Tab 1 03/04/2018 Active Azelastine HCl 0.1 % nasal sprayIndications:C [...] THE MORNING 90 Tab 1 08/05/2018 Active spironolactone (ALDACTONE) 25 MG Tablet TAKE ONE TABLET BY MOUTH ONCE DAILY IN THE MORNING 90 Tab 1 02/04/2018 08/04/2018 Discontinued as of this encounter Active Problems [...] Encounter - Dayanna Gómez III, MD - 08/05/2018 12:18 PM EDT Signed Prescriptions: Disp Refills spironolactone (ALDACTONE) 25 MG Tablet 90 Tab 1 Sig: TAKE 1 TABLET BY MOUTH ONCE DAILY IN THE MORNING Authorizing Provider: DAYANNA GÓMEZ III * Telephone Encounter - Irene Pritchard LPN - 08/05/2018 9:59 AM EDT Pending Prescriptions: Disp Refills spironolactone (ALDACTONE) 25 MG Tablet [*90 Tab 1 Sig: TAKE 1 TABLET BY MOUTH ONCE DAILY IN THE MORNING * Telephone Encounter - Irnee PritchardREINA - 08/05/2018 9:59 AM EDT Pending Prescriptions: Disp Refills spironolactone (ALDACTONE) 25 MG Tablet [*90 Tab 1 Sig: TAKE 1 TABLET BY MOUTH ONCE DAILY IN THE MORNING Last Office Visit: 07/17/2018 Next Office Visit: 01/22/2019 Scheduled Provider(s): Dayanna Gómez III, MD lr 3-19-18 in this encounter Plan of Treatment Upcoming Encounters Date Type Specialty Care Team Description 08/09/2018 Immunization/Injection Ancillary Blanche, Nurse Ben G[facility] [address] [facility] [place] [address] [phone] 11/21/2018 Office Visit Cardiology Kath Carlin PA-C [address] [facility] [place] [address] [phone] 01/22/2019 Office Visit Family Medicine Dayanna Gómez III, MD [address] [place] [address] [phone] Health Maintenance Due Date Last Done Comments Zoster Vaccines HMT (1 of 2) 2012 Influenza Vaccine (FLU shot) (#1) 2018 08/03/2016, [...]
--- OUTSIDE RECORDS SUMMARY | 2023-09-26 02:27 | External Medical Summary ---
Author Name Unknown Address [address] [place] [address] Phone Organization K09:[facility] [address] [place] [address] Laboratory Report Ordering Provider Test Date Status RICO ALAN III 07/18/2018 09:57:00 Final Observation Date Value Abnormality Reference Status WBC, Total 07/18/2018 10:09 6.15 4.00-10.80 F inal RBC 07/18/2018 10:09 4.29 Below low normal 4.50-5 .25 Final Hemoglobin 07/18/2018 10:09 13.3 Below low normal 14.0- 16.8 Final HCT 07/18/2018 10:09 38.4 Below low normal 40.0-4 8.4 Final MCV 07/18/2018 10:09 89.5 82.0-99.5 Fin al MCH 07/18/2018 10:09 31.0 27.0-34.0 Fin al MCHC 07/18/2018 10:09 34.6 32.0-36.0 Fin al RDW 07/18/2018 10:09 12.9 11.5-15.5 Fin al Platelets 07/18/2018 10:09 182 140-400 Fin al MPV 07/18/2018 10:09 10.6 6.6-11.1 Fin al Performing Location [facility] [address] [place] [address]
--- OUTSIDE RECORDS SUMMARY | 2023-09-26 02:27 | External Medical Summary | Summary of Care ---
Author Name Unknown Organization [place] [address] Phone Care Team Providers Care Braider Setter Name Role Phone Fabian Du III, MD Primary Care Provider + [phone] Reason for Visit * Reason Comments ADVICE Encounter Details Date Type Department Care Team Description 07/10/2018 Telephone Family Practice [facility] [address] [place] [address] Fabian Du III, MD [address] [place] [address] [phone] ADVICE Allergies No Known Allergiesas of this encounter [...] VITAMIN/LYCOPENE) TABS Take by mouth daily. Active furosemide (LASIX) 20 MG Tablet TAKE TWO TABLETS BY MOUTH ONCE DAILY 60 Tab 11 07/09/2017 Active spironolactone (ALDACTONE) 25 MG Tablet TAKE ONE TABLET BY MOUTH ONCE DAILY IN THE MORNING 90 Tab 1 02/04/2018 Active levothyroxine (LEVOXYL) 75 MCG TabletIndications:Hypo thyroidism TAKE ONE TABLET BY MOUTH ONCE DAILY IN THE MORNING ON AN EMPTY STOMACH WITH A FULL GLASS OF WATER 90 Tab 1 03/04/2018 Active Azelastine HCl 0.1 % nasal sprayIndications:Chron [...] ONCE DAILY 30 Tab 10 07/09/2018 Active as of this encounter Active Problems [...] Conjugate Vacci ne, 7 Valent 10/15/2002 Pneumococcal Polyvalent Vacc (Pneumovax) 08/19/2010 Seasonal Influenza, Quadriva lent, No Preserve, IM 08/03/2016 Seasonal Influenza, Trivalen t, with Preserve, 3yr & Above, Split 08/03/2015,08/03/2014,08/06/2013,07/21,09/18/2011,08/26/2009,09/03/20 03,10/15/2002 TDAP (age 11 and older)(Adacel) 09/13/2009 as of this encounter Social History Tobacco Use Types Packs/Day Years Used Date Never Smoker Smokeless Tobacco: Former User Chew Quit: 04/21/2012 Comments:quit Alcohol Use Drinks/Week oz/Week Comments Yes 6 12 oz of beer 3.0 Sex Assigned at Date Recorded Not on file as of this encounter Miscellaneous Notes * Telephone Encounter - Fabian Du III, MD - 07/10/2018 2:32 PM EDT Just needs TSH nonfasting other * Telephone Encounter - Bree Wesley OSA - 07/10/2018 1:54 PM EDT Pt has upcoming appt. Pt asking is labs should be drawn prior to appt so that results can be discussed at appt. Please advise. in this encounter Plan of Treatment Upcoming Encounters Date Type Specialty Care Team Description 07/17/2018 Office Visit Family Medicine Fabian Du III, MD [address] [facility] [address] [phone] 11/21/2018 Office Visit Cardiology Kath Carlin PA-C [address] [address] [phone] Scheduled Tests Name Priority Associated Diagnoses Order S chedule TSH W/FT4 IF TSH IS INDICATED Routine Acquired hypothyroidism Expected: 07/10/2018 (Approximate), Expires: 07/10/2019 Health Maintenance Due Date Last Done Comments *DEPRESSION SCREENING, ANNUA L FOR PTS 18 AND OVER 12/14/2014 *TSH FOR THYROID MEDICATION MONITORING YEARLY 12/03/2017 Influenza Vaccine (FLU shot) (#1) 2018 08/03/2016, [...] fileas of this encounter Visit Diagnoses Diagnosis Acquired hypothyroidism - Pr imary Unspecified hypothyroidism in this encounter
--- OUTSIDE RECORDS SUMMARY | 2023-09-26 02:27 | External Medical Summary ---
Author Name Unknown Address [address] [place] [address] Phone Organization K01:[facility] [address] [place] [address] Laboratory Report Ordering Provider Test Date Status RICO ALAN III 07/18/2018 09:57:00 Final Observation Date Value Abnormality Reference Status Ferritin 07/19/2018 10:34 121.8 30-400 Fin al Performing Location [facility] [address] [place] [address]
--- OUTSIDE RECORDS SUMMARY | 2023-09-26 02:27 | External Medical Summary ---
Author Name Unknown Address [address] [facility] [place] [address] Phone Organization K01:[facility] [address] [id number] Laboratory Report Ordering Provider Test Date Status RICO ALAN III 07/18/2018 09:57:00 Final Observation Date Value Abnormality Reference Status Iron 07/19/2018 10:10 93 45-176 Fin al Iron-binding capacity 07/19/2018 10:10 268 2 [address] Final Transferrin Sat % 07/19/2018 10:10 35 15-55 Final Performing Location [facility] [address] [facility] [address]
--- OUTSIDE RECORDS SUMMARY | 2023-09-26 02:27 | External Medical Summary | Summary of Care ---
Author Name Unknown Organization [place] [address] Phone Care Team Providers Care Inspector Motor Vehicles Name Role Phone Fabian Du III, MD Primary Care Provider [phone] Reason for Visit * Reason Comments PHYSICAL-EXAM Encounter Details Date Type Department Care Team Description 07/17/2018 Office Visit Family Practice [facility] [address] [place] [address] Fabian Du III, MD [address] [place] [address] [phone] Routine medical exam*;HTN, goal below 140/90;Acquired hypothyroidism;Malaise and fatigue;Screening for prostate cancer Allergies No Known Allergiesas of this encounter Medications Prescription Sig. Disp. Refills Start Date End Date Status ASPIRIN 81 MG PO TABS One daily Active ZYRTEC ALLERGY 10 MG PO TABS one daily Active ALBUTEROL SULFATE (2.5 MG/3ML) 0.083% IN [facility] one vial every 6 hours as [...] VITAMIN/LYCOPENE) TABS Take by mouth daily. Active spironolactone (ALDACTONE) 25 MG Tablet TAKE ONE TABLET BY MOUTH ONCE DAILY IN THE MORNING 90 Tab 1 02/04/2018 Active levothyroxine (LEVOXYL) 75 MCG TabletIndications: Hypothyroidism [...] ONCE DAILY 30 Tab 10 07/09/2018 Active furosemide (LASIX) 20 MG Tablet TAKE TWO TABLETS BY MOUTH ONCE DAILY 60 Tab 11 07/09/2017 07/17/2018 Discontinued as of this encounter Active Problems [...] Not on file as of this encounter Last Filed Vital Signs Vital Sign Reading Time Taken Blood Pressure 120/70 07/17/2018 6:07 PM EDT Pulse 80 07/17/2018 6:07 PM EDT Temperature 36.8 C (98.3 F) 07/17/2018 6 :07 PM EDT Respiratory Rate 16 07/17/2018 6:07 PM EDT Oxygen Saturation - - Inhaled Oxygen Concentration - - Weight 108.9 kg (240 lb) 07/17/2018 6:0 7 PM EDT Height - - Body Mass Index 36.49 07/17/2018 6:07 PM EDT in this encounter H&P Notes * Fabian Du III, MD - 07/17/2018 7:04 PM EDT Formatting of this note may be different from the original. Subjective: Placido Dean is a 58 year old male. 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 followed by Cardiology generally he has been feeling well other than tiredness can wake up tired saw sleep medicine and ENT in the past eyes have been checked sees dentist no hearing concerns no swallowing difficulties no exertional chest pain shortness of breath claudication or swelling no bleeding urine or bowels no lumps or swelling in the groin area often wakes up tired PMH: Patient Active Problem List Diagnosis Code [...] Dilated aortic root (HCC) I77.810 Current Outpatient Prescriptions Medication Sig Dispense Refill furosemide (LASIX) 40 MG Tablet TAKE ONE TABLET BY MOUTH ONCE DAILY 30 Tab 10 atorvaSTATin (LIPITOR) 40 MG Tablet TAKE ONE TABLET BY MOUTH EVERY OTHER DAY 45 Tab 3 lisinopril (PRINIVIL) 20 MG Tablet TAKE ONE TABLET BY MOUTH ONCE DAILY 30 Tab 11 potassium chloride ER 10 MEQ TBCR TAKE ONE TABLET BY MOUTH ONCE DAILY 90 Tab 1 Azelastine HCl 0.1 % nasal spray USE TWO SPRAY(S) IN EACH NOSTRIL TWICE DAILY 30 mL 5 levothyroxine (LEVOXYL) 75 MCG Tablet TAKE ONE TABLET BY MOUTH ONCE DAILY IN THE MORNING ON AN EMPTY STOMACH WITH A FULL GLASS OF WATER 90 Tab 1 spironolactone (ALDACTONE) 25 MG Tablet TAKE ONE TABLET BY MOUTH ONCE DAILY IN THE MORNING 90 Tab 1 Mometasone Furo-Formoterol Fum (DULERA) 100-5 MCG/ACT [...] three months Pericardial effusion 01/2003 idiopathic, at [facility] Pilonidal cyst without infection Past Surgical History: Procedure Laterality Date BRONCHOSCOPY W/ BRONCHIAL BIOPSY 2002 biopsy, open and bronchoscopy COLONOSCOPY, DIAGNOSTIC (RECTUM) 11/29/2012 COLONOSCOPY FLEXIBLE PROXIMAL DIAGNOSTIC performed by Cristy Dobbs DO at ENDOSCOPY [facility] COLONOSCOPY, DIAGNOSTIC (RECTUM) 11/26/2015 diverticulosis, repeat 10 yrs/COLONOSCOPY FLEXIBLE PROXIMAL DIAGNOSTIC performed by Cristy Dobbs DO at ENDOSCOPY [facility] DENTAL SURGERY PROCEDURE NEC Dental Surgery Procedure DRAINAGE OF HEART SAC 2002 [facility] REMOVAL OF WRIST LESION Objective: The patient is a 58 year old male BP 120/70 | Pulse 80 | Temp (Src) 98.3 (Tympanic) | Resp 16 | Wt 240 lbs (108.863kg) | BMI 36.49 kg/m | BSA 2.29 m General: alert, healthy and no distress Eye Exam: PERRLA, EOMI, Conjunctiva are pink and non-injected, sclera clear Ears: External ears normal, Canals clear, TM's Normal Oropharynx: no exudate, no erythema, lips, buccal mucosa, and tongue normal and mucous membranes are moist Neck: supple, no adenopathy, no bruits, thyroid normal size, non-tender, without nodularity Lungs clear to auscultation no rhonchi rales rubs wheezes Cor regular rate without murmur gallop or rub Abdomen soft nontender no masses or organomegaly Extremities without cyanosis clubbing or edema Neurologic alert and oriented deep tendon reflexes are equal and active Genitourinary testes normal no hernia is appreciated Rectal without mass prostate without nodule ASSESSMENT: Z00.00 Routine medical exam (primary encounter diagnosis) I10 HTN, goal below 140/90 E03.9 Acquired hypothyroidism R53.81,R53.83 Malaise and fatigue Z12.5 Screening for prostate cancer PLAN: Had labs done in December will check TSH CBC continue present meds labs are normal discussed sleep issues and tiredness with Pulmonary has an appointment there next month shingles vaccine discussed Follow up in 6 month(s). Fabian Du III, MD in this encounter Nursing Notes * Alice Clarke, REINA - 07/17/2018 6:10 PM EDT Formatting of this note may be different from the original. Chief Complaint Patient presents with PHYSICAL-EXAM hm and meds reviewed in this encounter Plan of Treatment Upcoming Encounters Date Type Specialty Care Team Description 11/21/2018 Office Visit Cardiology Kath Carlin PA-C [address] [facility] [place] [address] [phone] 01/22/2019 Office Visit Family Medicine Fabian Du III, MD [address] [facility] [address] [phone] Scheduled Tests Name Priority Associated Diagnoses Order S chedule PROSTATE CAN SCREEN,RECTAL EX Routine Screening for prostate cancer Ordered: 07/17/2018 Health Maintenance Due Date Last Done Comments Zoster Vaccines HMT (1 of 2) 2012 *TSH FOR THYROID MEDICATION MONITORING YEARLY 12/03/2017 [...] Implants Not on fileas of this encounter Results * CBC (07/18/2018 9:57 AM) Component Value Ref Range WBC 6.15 4.00 - 10.80 K/u L RBC 4.29(L) 4.50 - 5.25 M/uL HGB 13.3(L) 14.0 - 16.8 g/dL HCT 38.4(L) 40.0 - 48.4 % MCV 89.5 82.0 - 99.5 fL MCH 31.0 27.0 - 34.0 pg MCHC 34.6 32.0 - 36.0 g/dL RDW 12.9 11.5 - 15.5 % PLATELET COUNT 182 140 - 400 K/uL MPV 10.6 6.6 - 11.1 fL Specimen Performing Laborator y [facility] [address] [place] [address] in this encounter Visit Diagnoses Diagnosis Routine medical exam - Prima ry Routine general medical examination at a health care facility HTN, goal below 140/90 Unspecified essential hypertension Acquired hypothyroidism Unspecified hypothyroidism Malaise and fatigue Other malaise and fatigue Screening for prostate cance r Special screening for malignant neoplasm of prostate in this encounter"
--- OUTSIDE RECORDS SUMMARY | 2023-09-26 02:27 | External Medical Summary | Summary of Care ---
Author Name Unknown Organization [place] [address] Phone Care Team Providers Care Diplomatic Officer Name Role Phone Fabian Du III, MD Primary Care Provider [phone] Reason for Visit * Reason Comments ORDER REQUEST Shingles Vacc Encounter Details Date Type Department Care Team Description 07/26/2018 Telephone Family Practice [facility] [address] [place] [address] Fabian Du III, MD [address] [place] [address] [phone] ORDER REQUEST (Shingles Vacc ) Allergies No Known Allergiesas of this encounter [...] as of this encounter Miscellaneous Notes * Addendum Note - Dot Ramirez RN - 07/29/2018 12:34 PM EDT Addended by: DOT RAMIREZ on: 07/29/2018 12:34 PM Modules accepted: Orders * Telephone Encounter - Batsheva Corbin OSA - 07/26/2018 4:14 PM EDT An order was requested for this patient. Name of Requestor: Pt's Order Requested: Shingles vacc series of 2 Diagnosis/Reason for Request: Vaccination Does the order need to be faxed somewhere? If so, where?: [facility] Fax Number, if applicable: [facility] Call Back Number: [phone] in this encounter Plan of Treatment Upcoming Encounters Date Type Specialty Care Team Description 11/21/2018 Office Visit Cardiology Kath Carlin PA-C [address] [place] [address] 01/22/2019 Office Visit Family Medicine Graham III, Fabian [place] MD [address] [facility] [address] [phone] Health Maintenance Due Date Last Done Comments [...] fileas of this encounter Visit Diagnoses Diagnosis Need for shingles vaccine - Primary Need for prophylactic vaccination and inoculation against other viral diseases in this encounter
--- OUTSIDE RECORDS SUMMARY | 2023-09-26 02:27 | External Medical Summary | Summary of Care ---
Author Name Unknown Organization [place] [address] Phone Care Team Providers Care Bend Sorter Name Role Phone Dayanna Gómez III, MD Primary Care Provider [phone] Reason for Visit * Reason Comments eRx-Medication Refill Encounter Details Date Type Department Care Team Description 07/08/2018 Refill Family Practice [facility] [address] [place] [address] Hemalatha Higuera PA-C [address] [place] [address] [phone] Allergies No Known Allergiesas of this encounter [...] Encounter - Dayanna Gómez III, MD - 07/09/2018 1:03 PM EDT Signed Prescriptions: Disp Refills furosemide (LASIX) 40 MG Tablet 30 Tab 10 Sig: TAKE ONE TABLET BY MOUTH ONCE DAILY Authorizing Provider: DAYANNA GÓMEZ III * Telephone Encounter - Irene Pritchard LPN - 07/09/2018 10:25 AM EDT Pending Prescriptions: Disp Refills furosemide (LASIX) 40 MG Tablet [Pharmacy*30 Tab 10 Sig: TAKE ONE TABLET BY MOUTH ONCE DAILY * Telephone Encounter - Irene PritchardREINA - 07/09/2018 10:24 AM EDT Pending Prescriptions: Disp Refills furosemide (LASIX) 40 MG Tablet [Pharmacy*30 Tab 10 Sig: TAKE ONE TABLET BY MOUTH ONCE DAILY Last Office Visit: 06/12/2017 Next Office Visit: 07/17/2018 Scheduled Provider(s): Dayanna Gómez III, MD lr 07-09-17 in this encounter Plan of Treatment Upcoming Encounters Date Type Specialty Care Team Description 07/17/2018 Office Visit Family Medicine Dayanna Gómez III, MD 200 [place] [address] 11/21/2018 Office Visit Cardiology Kath Carlin PA-C 132 [facility] [place] [address] Health Maintenance Due Date Last Done Comments *DEPRESSION SCREENINGJOSE FOR PTS 18 AND OVER 12/14/2014 *TSH [...]
--- OUTSIDE RECORDS SUMMARY | 2023-09-26 02:27 | External Medical Summary | Summary of Care ---
Author Name Unknown Organization [place] [address] Phone Care Team Providers Care Cryptologic Technician Name Role Phone Fabian Du III, MD Primary Care Provider [phone] Reason for Visit * Reason Comments ORDER REQUEST Shingles Vacc Encounter Details Date Type Department Care Team Description 07/26/2018 Telephone Family Practice [facility] [address] [place] [address] Fabian Du III, MD [address] [place] [address] [phone] ORDER REQUEST (Shingles Vacc ) Allergies No [...] encounter Miscellaneous Notes * Telephone Encounter - Batsheva Corbin, HALINA - 07/26/2018 4:14 PM EDT An order was requested for this patient. Name of Requestor: Pt's Order Requested: Shingles vacc series of 2 Diagnosis/Reason for Request: Vaccination Does the order need to be faxed somewhere? If so, where?: [facility] Fax Number, if applicable: [facility] Call Back Number: [phone] in this encounter Plan of Treatment Upcoming Encounters Date Type Specialty Care Team Description 11/21/2018 Office Visit Cardiology Kath Carlin PA-C 132 [facility] [place] [address] [phone] 01/22/2019 Office Visit Family Medicine Ana Laura Fabian CEVALLOS MD 200 [facility] [place] [address] [phone] Health Maintenance Due Date Last Done Comments [...]
--- OUTSIDE RECORDS SUMMARY | 2023-09-26 02:27 | External Medical Summary ---
Author Name Unknown Address [address] [place] [address] Phone Organization K01:[facility] [address] [id number] Laboratory Report Ordering Provider Test Date Status RICO ALAN III 07/18/2018 09:57:00 Final Observation Date Value Abnormality Reference Status TSH 07/18/2018 17:59 1.98 0.27-4.2 Fin al T4, Free 07/18/2018 17:59 NOT APPLICABLE 0.9-1.7 Final Performing Location [facility] [address] [facility] [address]
--- OUTSIDE RECORDS SUMMARY | 2023-09-26 02:27 | External Medical Summary | Summary of Care ---
Author Name Unknown Organization [place] [address] Phone Care Team Providers Care Water Meter Installer Name Role Phone Dayanna Gómez III, MD Primary Care Provider [phone] Reason for Visit * Reason Comments ORDER REQUEST Shingles Vacc Encounter Details Date Type Department Care Team Description 07/26/2018 Telephone Family Practice [facility] [address] [place] [address] Dayanna Gómez III, MD [address] [place] [address] [phone] ORDER REQUEST (Shingles Vacc ) Allergies No [...] encounter Miscellaneous Notes * Addendum Note - Dayanna Gómez III, MD - 07/29/2018 1:58 PM EDT Addended by: DAYANNA GÓMEZ on: 07/29/2018 01:58 PM Modules accepted: Orders * Addendum Note - Dot Ramirez RN [...] to be faxed somewhere? If so, where[facility] Fax Number, if applicable: [facility] Call Back Number: [phone] in this encounter Plan of Treatment Upcoming Encounters Date Type Specialty Care Team Description 11/21/2018 Office Visit Cardiology Kath Carlin PA-C [address] [facility] [place] [address] [phone] 01/22/2019 Office Visit Family Medicine Jerauld III, Dayanna Carlisle MD [address] [place], [place] [address] [address] [phone] Health Maintenance Due Date Last Done Comments [...]
--- OUTSIDE RECORDS SUMMARY | 2023-09-26 02:28 | External Medical Summary | Summary of Care ---
Author Name Unknown Organization [place] [address] Phone Care Team Providers Care Crutch Maker Name Role Phone Fabian Du III, MD Primary Care Provider [phone] Encounter Details Date Type Department Care Team Description 12/25/2017 Orders Only Outcomes Research Department [address] [place] [address] Saeid Watts Dianne [address] [place] [address] [employer] Other*[id number] Allergies No Known Allergiesas of this encounter Medications Prescription Sig. Disp. Refills Start Date End Date Status ASPIRIN 81 MG PO TABS One daily Act natasha ZYRTEC ALLERGY 10 MG PO TABS one daily Active ALBUTEROL SULFATE (2.5 MG/3ML) 0.083% IN [facility] one vial every 6 hours as [...] % nasal sprayIndications:Chron ic rhinitis USE TWO SPRAYS IN EACH NOSTRIL TWICE DAILY 30 mL 5 03/05/2017 Active lisinopril (PRINIVIL) 20 MG Tablet TAKE ONE TABLET BY MOUTH ONCE DAILY 30 Tab 11 04/03/2017 Active furosemide (LASIX) 20 MG Tablet TAKE TWO TABLETS BY MOUTH ONCE DAILY 60 Tab 11 07/09/2017 Active spironolactone (ALDACTONE) 25 MG Tablet TAKE ONE TABLET BY MOUTH ONCE DAILY IN THE MORNING 30 Tab 5 08/07/2017 Active levothyroxine (LEVOXYL) 75 MCG TabletIndications:Hypo thyroidism TAKE ONE TABLET BY MOUTH ONCE DAILY IN THE MORNING ON AN EMPTY STOMACH WITH A FULL GLASS OF WATER 30 Tab 5 09/03/2017 Active potassium chloride ER 10 MEQ TBCR TAKE ONE TABLET BY MOUTH ONCE DAILY 90 Tab 1 10/01/2017 Active atorvaSTATin (LIPITOR) 40 MG TabletIndications:CAD (coronary artery disease) TAKE ONE TABLET BY MOUTH EVERY OTHER DAY 15 Tab 5 11/26/2017 Active as of this encounter Active Problems [...] Description 11/21/2018 Office Visit Cardiology Kath Carlin PA-Annika 132 [facility] [place] [address] [phone] Scheduled Tests Name Priority Associated Diagnoses Order S chedule MYCODE SUBSEQUENT ADULT Routine [employer] Other*[id number] Every 6 Months for 2 Occurrences starting 12/25/2017 until 01/14/2019 Health Maintenance Due Date Last Done Comments *DEPRESSION SCREENING, JOSE Murguia FOR PTS 18 AND OVER 12/14/2014 Influenza Vaccine (FLU shot) (#1) 2017 08/03/2016, 08/03/2015, 08/03/2014, Additional history exists *BASIC METABOLIC PANEL (BMP) FOR HTN YEARLY 12/03/2017 *TSH FOR THYROID MEDICATION MONITORING YEARLY 12/03/2017 TETANUS EVERY 10 YRS-TDAP (BOOSTRIX/ADACEL) SUGGESTED IF NOT RECEIVED IN PAST 09/13/2019 09/13/2009, 09/13/2009 DIABETES SCREEN EVERY 3 YRS- AGE 45 AND ABOVE 12/24/2020 12/24/2017, 11/30/2016, 11/26/2015, Additional history exists LIPID SCREEN EVERY 5 YRS-MEN AGE 35-75 12/24/2022 12/24/2017, 11/30/2016, 11/26/2015, Additional history exists as of this encounter Implants Not on fileas of this encounter Visit Diagnoses Diagnosis MYCODE RESEARCH OTHER*[id number] in this encounter Insurance Payer Benefit Plan / Group Subscriber ID Type Phone Address AMENDIA MADHAV HUMPHREYS [id number] as of this encounter
--- OUTSIDE RECORDS SUMMARY | 2023-09-26 02:28 | External Medical Summary | Summary of Care ---
Author Name Unknown Organization [place] [address] Phone Care Team Providers Care Grinder Watch Parts Name Role Phone Dayanna Gómez III, MD Primary Care Provider [phone] Reason for Visit * Reason Comments eRx-Medication Refill Encounter Details Date Type Department Care Team Description 04/28/2018 Refill Family Practice [facility] [address] [place] [address] Dayanna Gómez III, MD [address] [place] [address] [phone] CAD (coronary artery disease) Allergies No Known Allergiesas of this encounter [...] OTHER DAY 45 Tab 3 04/29/2018 Active atorvaSTATin (LIPITOR) 40 MG TabletIndications: CAD (coronary artery disease) TAKE ONE TABLET BY MOUTH EVERY OTHER DAY 15 Tab 5 11/26/2017 04/28/2018 Discontinued as of this encounter Active Problems [...] Encounter - Dayanna Gómez III, MD - 04/29/2018 12:03 PM EDT Signed Prescriptions: Disp Refills atorvaSTATin (LIPITOR) 40 MG Tablet 45 Tab 3 Sig: TAKE ONE TABLET BY MOUTH EVERY OTHER DAY Authorizing Provider: DAYANNA GÓMEZ III * Telephone Encounter - Chasity Schneider LPN - 04/29/2018 10:32 AM EDT Pending Prescriptions: Disp Refills atorvaSTATin (LIPITOR) 40 MG Tablet [Phar*45 Tab 3 Sig: TAKE ONE TABLET BY MOUTH EVERY OTHER DAY * Telephone Encounter - Chasity Schneider LPN - 04/29/2018 10:32 AM EDT Formatting of this note may be different from the original. Pending Prescriptions: Disp Refills atorvaSTATin (LIPITOR) 40 MG Tablet [Phar*15 Tab 5 Sig: TAKE ONE TABLET BY MOUTH EVERY OTHER DAY Last Office Visit: 06/12/2017 Next Office Visit: No Future Appointments Last date the medication was ordered: 11/26/17 Patient Active Problem List Diagnosis Code Paulo's [...] FINAL TSH(uIU/mL) Selene Dt/Tm Resulted Value Status 11/30/16 2:21P 11/30/16 2.81 FINAL LDL (CALCULATED)(mg/dL) Selene Dt/Tm Resulted Value [...] Office Visit Cardiology Kath Carlin PA-C 132 [facility] [place] [address] [phone] Health Maintenance Due Date Last Done Comments *DEPRESSION SCREENING, ANNUA L FOR PTS 18 AND OVER 12/14/2014 *TSH FOR THYROID MEDICATION MONITORING YEARLY 12/03/2017 Influenza Vaccine (FLU shot) (Season Ended) 2018 08/03/2016, 08/03/2015, 08/03/2014, Additional history exists DTaP,Tdap,and Td Vaccines (2 - Td) 09/13/2019 09/13/2009 DIABETES SCREEN EVERY 3 YRS- AGE 45 AND ABOVE 12/24/2020 12/24/2017, 11/30/2016, 11/26/2015, Additional history exists LIPID SCREEN EVERY 5 YRS-MEN AGE 35-75 12/24/2022 12/24/2017, 11/30/2016, 11/26/2015, Additional history exists as of this encounter Implants Not on fileas of this encounter Visit Diagnoses Diagnosis CAD (coronary artery disease ) Coronary atherosclerosis of unspecified type of vessel, kaw or graft in this encounter
--- OUTSIDE RECORDS SUMMARY | 2023-09-26 02:28 | External Medical Summary | Summary of Care ---
Author Name Unknown Organization [place] [address] Phone Care Team Providers Care Bread Stacker Name Role Phone Dayanna Gómez III, MD Primary Care Provider + [phone] Reason for Visit * Reason Comments eRx-Medication Refill Encounter Details Date Type Department Care Team Description 03/03/2018 Refill Family Practice [facility] [address] [place] [address] Dayanna Gómez III, MD [address] [place] [address] [phone] Hypothyroidism Allergies No Known Allergiesas of this encounter Medications Prescription Sig. Disp. Refills Start Date End Date Status ASPIRIN 81 MG PO TABS One daily Active ZYRTEC ALLERGY 10 MG PO TABS one daily Active ALBUTEROL SULFATE (2.5 MG/3ML) 0.083% IN [facility] one vial every 6 hours as needed [...] % nasal sprayIndications:C hronic rhinitis USE TWO SPRAYS IN EACH NOSTRIL TWICE DAILY 30 mL 5 03/05/2017 Active lisinopril (PRINIVIL) 20 MG Tablet TAKE ONE TABLET BY MOUTH ONCE DAILY 30 Tab 11 04/03/2017 Active furosemide (LASIX) 20 MG Tablet TAKE TWO TABLETS BY MOUTH ONCE DAILY 60 Tab 11 07/09/2017 Active potassium chloride ER 10 MEQ TBCR TAKE ONE TABLET BY MOUTH ONCE DAILY 90 Tab 1 10/01/2017 Active atorvaSTATin (LIPITOR) 40 MG TabletIndications: CAD (coronary artery disease) TAKE ONE TABLET BY MOUTH EVERY OTHER DAY 15 Tab 5 11/26/2017 Active spironolactone (ALDACTONE) 25 MG Tablet TAKE ONE TABLET BY MOUTH ONCE DAILY IN THE MORNING 90 Tab 1 02/04/2018 Active levothyroxine (LEVOXYL) 75 MCG TabletIndications: Hypothyroidism TAKE ONE TABLET BY MOUTH ONCE DAILY IN THE MORNING ON AN EMPTY STOMACH WITH A FULL GLASS OF WATER 90 Tab 1 03/04/2018 Active levothyroxine (LEVOXYL) 75 MCG TabletIndications: Hypothyroidism TAKE ONE TABLET BY MOUTH ONCE DAILY IN THE MORNING ON AN EMPTY STOMACH WITH A FULL GLASS OF WATER 30 Tab 5 09/03/2017 03/03/2018 Discontinued as of this encounter Active Problems [...] Encounter - Dayanna Gómez III, MD - 03/04/2018 11:23 AM EDT Signed Prescriptions: Disp Refills levothyroxine (LEVOXYL) 75 MCG Tablet 90 Tab 1 Sig: TAKE ONE TABLET BY MOUTH ONCE DAILY IN THE MORNING ON AN EMPTY STOMACH WITH A FULL GLASS OF WATER Authorizing Provider: DAYANNA GÓMEZ III * Telephone Encounter - Anu Simon LPN - 03/04/2018 11:03 AM EDT Pending Prescriptions: Disp Refills levothyroxine (LEVOXYL) 75 MCG Tablet [Ph*90 Tab 1 Sig: TAKE ONE TABLET BY MOUTH ONCE DAILY IN THE MORNING ON AN EMPTY STOMACH WITH A FULL GLASS OF WATER * Telephone Encounter - Anu Simon LPN - 03/04/2018 11:03 AM EDT Formatting of this note may be different from the original. Pending Prescriptions: Disp Refills levothyroxine (LEVOXYL) 75 MCG Tablet [Ph*90 Tab 1 Sig: TAKE ONE TABLET BY MOUTH ONCE DAILY IN THE MORNING ON AN EMPTY STOMACH WITH A FULL GLASS OF WATER Last Office Visit: 06/12/2017 Next Office Visit: No Future Appointments If no future appointments scheduled, and last appointment is greater than a year ago, please schedule patient for a follow-up appointment Last date the medication was ordered: 09/03/17 Patient Phone Numbers doubleTwist [phone] Labs: Lab Results Component Value Date/Time CREAT 1.0 12/24/2017 08:04 AM POTASSIUM 4.0 12/24/2017 08:04 AM TSH 2.81 11/30/2016 02:21 PM LDLCALC 93 12/24/2017 08:04 AM LDLDIRECT 136 (H) 05/12/2011 02:10 PM ALT 44 12/24/2017 08:04 AM in this encounter Plan of Treatment Upcoming Encounters Date Type Specialty Care Team Description 11/21/2018 Office Visit Cardiology Kath Carlin PA-C [address] [facility] [place] [address] Health Maintenance Due Date Last Done Comments *DEPRESSION SCREENING, JOSE Murguia FOR PTS 18 AND OVER 12/14/2014 Influenza Vaccine (FLU shot) (#1) 2017 08/03/2016, 08/03/2015, 08/03/2014, Additional history exists *TSH FOR THYROID MEDICATION MONITORING YEARLY 12/03/2017 DTaP,Tdap,and Td Vaccines (2 - Td) 09/13/2019 09/13/2009 DIABETES SCREEN EVERY 3 YRS- AGE 45 AND ABOVE 12/24/2020 12/24/2017, 11/30/2016, 11/26/2015, Additional history exists LIPID SCREEN EVERY 5 YRS-MEN AGE 35-75 12/24/2022 12/24/2017, 11/30/2016, 11/26/2015, Additional history exists as of this encounter Implants Not on fileas of this encounter Visit Diagnoses Diagnosis Hypothyroidism Unspecified hypothyroidism in this encounter Insurance Payer Benefit Plan / Group Subscriber ID Type Phone Address [employer] MADHAV HUMPHREYS [id number] 1 as of this encounter
--- OUTSIDE RECORDS SUMMARY | 2023-09-26 02:28 | External Medical Summary | Summary of Care ---
Author Name Unknown Organization [place] [address] Phone Care Team Providers Care Storekeeper Helper Name Role Phone Dayanna Du III, MD Primary Care Provider [phone] Reason for Visit * Reason Comments eRx-Medication Refill Encounter Details Date Type Department Care Team Description 03/31/[address] [facility] [address] [place] [address] Annabelle Saenz, DO [address] [place] [address] [phone] Allergies No Known Allergiesas of this encounter [...] ONCE DAILY 60 Tab 11 07/09/2017 Active atorvaSTATin (LIPITOR) 40 MG TabletIndications: CAD [...] ONCE DAILY 30 Tab 11 04/01/2018 Active lisinopril (PRINIVIL) 20 MG Tablet TAKE ONE TABLET BY MOUTH ONCE DAILY 30 Tab 11 04/03/2017 03/31/2018 Discontinued potassium chloride ER 10 MEQ TBCR TAKE ONE TABLET BY MOUTH ONCE DAILY 90 Tab 1 10/01/2017 03/31/2018 Discontinued as of this encounter Active Problems [...] Miscellaneous Notes * Telephone Encounter - Dayanna Du III, MD - 04/01/2018 5:08 PM EDT Signed Prescriptions: Disp Refills lisinopril (PRINIVIL) 20 MG Tablet 30 Tab 11 Sig: TAKE ONE TABLET BY MOUTH ONCE DAILY Authorizing Provider: DAYANNA DU III * Telephone Encounter - Randi Jacobsen LPN - 04/01/2018 3:56 PM EDT Pending Prescriptions: Disp Refills lisinopril (PRINIVIL) 20 MG Tablet [Pharm*30 Tab 11 Sig: TAKE ONE TABLET BY MOUTH ONCE DAILY * Telephone Encounter - Cathie Pruitt LPN - 04/01/2018 3:21 PM EDT Pending Prescriptions: Disp Refills lisinopril (PRINIVIL) 20 MG Tablet [Pharma*30 Tab 11 Sig: TAKE ONE TABLET BY MOUTH ONCE DAILY * Telephone Encounter - Cathie Pruitt LPN - 04/01/2018 3:21 PM EDT Formatting of this note may be different from the original. Pending Prescriptions: Disp Refills lisinopril (PRINIVIL) 20 MG Tablet [Pharm*30 Tab 11 Sig: TAKE ONE TABLET BY MOUTH ONCE DAILY Last Office Visit: 06/12/2017 Next Office Visit: No Future Appointments If no future appointments scheduled, and last appointment is greater than a year ago, please schedule patient for a follow-up appointment Last date the medication was ordered: 04/03/2017 Patient Phone Numbers Labs: Lab Results Component [...] Cardiology Kath Carlin PA-C [address] [place] [address] [phone] Health Maintenance Due Date Last Done Comments [...]
--- OUTSIDE RECORDS SUMMARY | 2023-09-26 02:28 | External Medical Summary | Summary of Care ---
Author Name Unknown Organization [place] [address] Phone Care Team Providers Care Futures Trader Name Role Phone Dayanna Gómez III, MD Primary Care Provider [phone] Reason for Visit * Reason Comments eRx-Medication Refill Encounter Details Date Type Department Care Team Description 02/03/2018 Refill Family Practice [facility] [address] [place] [address] Dayanna Gómez III, MD [address] [place] [address] [phone] Allergies No Known Allergiesas of this encounter Medications Prescription Sig. Disp. Refills Start Date End Date Status ASPIRIN 81 MG PO TABS One daily Active ZYRTEC ALLERGY 10 MG PO TABS one daily Active ALBUTEROL SULFATE (2.5 MG/3ML) 0.083% IN [facility] one vial every 6 hours [...] ONCE DAILY 60 Tab 11 07/09/2017 Active levothyroxine (LEVOXYL) 75 MCG TabletIndications: Hypothyroidism [...] THE MORNING 90 Tab 1 02/04/2018 Active spironolactone (ALDACTONE) 25 MG Tablet TAKE ONE TABLET BY MOUTH ONCE DAILY IN THE MORNING 30 Tab 5 08/07/2017 02/03/2018 Discontinued as of this encounter Active Problems [...] Encounter - Dayanna Gómez III, MD - 02/04/2018 2:43 PM EDT Signed Prescriptions: Disp Refills spironolactone (ALDACTONE) 25 MG Tablet 90 Tab 1 Sig: TAKE ONE TABLET BY MOUTH ONCE DAILY IN THE MORNING Authorizing Provider: DAYANNA GÓMEZ III * Telephone Encounter - Mandy Mazariegos LPN - 02/04/2018 1:44 PM EDT Pending Prescriptions: Disp Refills spironolactone (ALDACTONE) 25 MG Tablet [*90 Tab 1 Sig: TAKE ONE TABLET BY MOUTH ONCE DAILY IN THE MORNING * Telephone Encounter - Mandy Mazariegos LPN - 02/04/2018 1:43 PM EDT Formatting of this note may be different from the original. Pending Prescriptions: Disp Refills spironolactone (ALDACTONE) 25 MG Tablet [*90 Tab 1 Sig: TAKE ONE TABLET BY MOUTH ONCE DAILY IN THE MORNING Last Office Visit: 06/12/2017 Next Office Visit: No Future Appointments Last date the medication was ordered: 08/07/17 Patient Active Problem List Diagnosis Code Paulo's [...] Status 12/24/17 8:04A 12/24/17 4.0 FINAL TSH(uIU/mL) [facility] Dt/Tm Resulted Value Status 11/30/16 2:21P 11/30/16 2.81 FINAL LDL (CALCULATED)(mg/dL) [facility] Dt/Tm Resulted Value Status 12/24/17 8:04A 12/24/17 93 FINAL LDL DIRECT(REFLEX)(mg/dL) [facility] Dt/Tm Resulted Value Status 12/24/17 8:04A 12/24/17 FINAL Value: NOT APPLICABLE ALT(U/L) [facility] Dt/Tm Resulted Value Status 12/24/17 8:04A 12/24/17 44 FINAL Hemoglobin AIC Results: No HEMOGLOBIN, A1C components found in this encounter Plan of Treatment Upcoming Encounters Date Type Specialty Care Team Description 11/21/2018 Office Visit Cardiology Kath Carlin PA-C [address] [place] [address] [phone] Health Maintenance Due Date Last Done Comments *DEPRESSION SCREENINGJOSE FOR PTS 18 AND OVER 12/14/2014 Influenza [...] Implants Not on fileas of this encounter Insurance Payer Benefit Plan / Group Subscriber ID Type Phone Address [employer] MADHAV HUMPHREYS [id number] 1 as of this encounter
--- OUTSIDE RECORDS SUMMARY | 2023-09-26 02:28 | External Medical Summary | Summary of Care ---
Author Name Unknown Organization [place] [address] Phone Care Team Providers Care Fringe Weaver Name Role Phone Fabian Du III, MD Primary Care Provider [phone] Reason for Referral * Precert (Routine) Status Reason Specialty Diagnoses / Procedures Re ferred By Contact Referred To Contact Closed Precert Cardiac Studies Diagnoses Dilated aortic root (HCC) HTN, goal below 140/90 SOB (shortness of breath) Nonspecific abnormal electrocardiogram (ECG) (EKG) Equivocal stress echocardiogram Procedures ECHO, STRESS (DOBUTAMINE) Kath Carlin PA-C [address] [place] [address] Reason for Visit * Reason Comments Cardiology Study Dobutamine * Precert (Routine) Status Reason Specialty Diagnoses / Procedures Re ferred By Contact Referred To Contact Closed Precert Cardiac Studies Diagnoses Dilated aortic root (HCC) HTN, goal below 140/90 SOB (shortness of breath) Nonspecific abnormal electrocardiogram (ECG) (EKG) Equivocal stress echocardiogram Procedures ECHO, STRESS (DOBUTAMINE) Kath Carlin PA-C [address] [place] [address] Encounter Details Date Type Department Care Team Description 12/24/2017 Cardiac Studies Cardiac Studies, [facility] [address] [place] [address] Gw, Displayer [address] [place] [address] [phone] Equivocal stress echocardiogram*;Dilated aortic root (HCC);HTN, goal below 140/90;SOB (shortness of breath);Nonspecific abnormal electrocardiogram (ECG) (EKG) Allergies No Known Allergiesas of this encounter [...] Not on file as of this encounter Progress Notes * Lynn Holland RN - 12/25/2017 3:04 PM EST Letter sent. 12/25/2017 * Kath Carlin PA-C - 12/25/2017 1:36 PM EST Dobutamine stress echo was negative for inducible ischemia. Patient to call office/return to clinic with worsening symptoms, chest pain/SOB. Otherwise no changes at this time. Keep f/u as scheduled. * Hammad Murdock TECH - 12/24/2017 9:26 AM EST Patient arrived in echo lab and identified by name and date of . Procedure and risk factors explained and questions answered. Informed consent obtained. IV site created with #22 gauge in dorsum left hand at 08:54 with one Attempt(s) made. Catheter capped and flushed with 1cc of NSS. NSS lock discontinued at 09:20 post Dobutamine Stress Echo, IV site unremarkable with dressing dry and intact.IV Dobutamine 250mg/250ml infused using the established protocol. See final report. Dobutamine Stress echo completed today without incident. Vital Signs stable and patient denies chest pain, chest discomfort or shortness of breath. Additional medications given during Dobutamine Stress Echo: Dobutamine [facility] 7156-4718-52; Lot [id number]; Exp. ; Metoprolol [facility] 0552-0502-67; Lot [id number]; Exp. 08/2020; Atropine [facility] [address]-3; Lot [id number]; Exp. 06-05; metoprolol 2.5 mg IV given; 2.5 ml (2.5 mg) wasted from single-use vial; Atropine 0.3 mg IV given; 7.0 ml (0.7 mg) wasted from single-use syringe in this encounter Plan of Treatment Upcoming Encounters Date Type Specialty Care Team Description 11/21/2018 Office Visit Cardiology Kath Carlin PA-C [address] [place] [address] [phone] Health Maintenance Due Date Last Done Comments [...] on fileas of this encounter Results * ECHO, STRESS (DOBUTAMINE) (12/24/2017 8:47 AM) Specimen Performing Laborator y [facility] in this encounter Visit Diagnoses Diagnosis Equivocal stress echocardiog lelia - Primary Other nonspecific abnormal cardiovascular system function study Dilated aortic root (HCC) Thoracic aortic ectasia HTN, goal below 140/90 Unspecified essential hypertension SOB (shortness of breath) Shortness of breath Nonspecific abnormal electro cardiogram (ECG) (EKG) in this encounter Insurance Payer Benefit Plan / Group Subscriber ID Type Phone Address [employer] MADHAV HUMPHREYS [id number] 1 as of this encounter
--- OUTSIDE RECORDS SUMMARY | 2023-09-26 02:28 | External Medical Summary | Summary of Care ---
Author Name Unknown Organization [place] [address] Phone Care Team Providers Care Repulping Supervisor Name Role Phone Dayanna Du III, MD Primary Care Provider [phone] Reason for Visit * Reason Comments eRx-Medication Refill Encounter Details Date Type Department Care Team Description 03/19/2018 Refill Family Practice [facility] [address] [place] [address] Dayanna Du III, MD [address] [place] [address] [phone] Chronic rhinitis Allergies No Known Allergiesas of this encounter Medications Prescription Sig. Disp. Refills Start Date End Date Status ASPIRIN 81 MG PO TABS One daily Active ZYRTEC ALLERGY 10 MG PO TABS one daily Active ALBUTEROL SULFATE (2.5 MG/3ML) 0.083% IN [facility] one vial every 6 hours as [...] VITAMIN/LYCOPENE) TABS Take by mouth daily. Active lisinopril (PRINIVIL) 20 MG Tablet TAKE [...] TWICE DAILY 30 mL 5 03/19/2018 Active Azelastine HCl 0.1 % nasal sprayIndications:C hronic rhinitis USE TWO SPRAYS IN EACH NOSTRIL TWICE DAILY 30 mL 5 03/05/2017 03/19/2018 Discontinued as of this encounter Active Problems [...] Encounter - Dayanna Du III, MD - 03/19/2018 9:39 AM EDT Signed Prescriptions: Disp Refills Azelastine HCl 0.1 % nasal spray 30 mL 5 Sig: USE TWO SPRAY(S) IN EACH NOSTRIL TWICE DAILY Authorizing Provider: DAYANNA DU III * Telephone Encounter - Randi Jacobsen LPN - 03/19/2018 9:22 AM EDT Pending Prescriptions: Disp Refills Azelastine HCl 0.1 % nasal spray [Pharmac*30 mL 5 Sig: USE TWO SPRAY(S) IN EACH NOSTRIL TWICE DAILY * Telephone Encounter - Libby Lira, REINA - 03/19/2018 7:39 AM EDT Pending Prescriptions: Disp Refills Azelastine HCl 0.1 % nasal spray [Pharmac*30 mL 5 Sig: USE TWO SPRAY(S) IN EACH NOSTRIL TWICE DAILY * Telephone Encounter - Conor Liraah Luann, REINA - 03/19/2018 7:37 AM EDT Formatting of this note may be different from the original. Pending Prescriptions: Disp Refills Azelastine HCl 0.1 % nasal spray [Pharmac*30 mL 5 Sig: USE TWO SPRAY(S) IN EACH NOSTRIL TWICE DAILY Last Office Visit: 06/12/2017 Next Office Visit: No Future Appointments Last date the medication was ordered: 03/05/17 Patient Active Problem List Diagnosis Code Paulo's [...] Status 12/24/17 8:04A 12/24/17 1.0 FINAL POTASSIUM(mmol/L) [facility] Dt/Tm Resulted Value Status 12/24/17 8:04A 12/24/17 4.0 FINAL TSH(uIU/mL) [facility] Dt/Tm Resulted Value Status 11/30/16 2:21P 11/30/16 2.81 FINAL LDL (CALCULATED)(mg/dL) [facility] Dt/Tm Resulted Value Status 12/24/17 8:04A 12/24/17 93 FINAL LDL DIRECT(REFLEX)(mg/dL) [facility] Dt/Tm Resulted Value Status 12/24/17 8:04A 12/24/17 FINAL Value: NOT APPLICABLE ALT(U/L) [facility] Dt/Tm Resulted Value Status 12/24/17 8:04A 12/24/17 44 FINAL Hemoglobin AIC Results: No HEMOGLOBIN, A1C components found in this encounter Plan of Treatment Upcoming Encounters Date Type Specialty Care Team Description 11/21/2018 Office Visit Cardiology Kath Carlin PA-C [address] [place] [address] [phone] Health Maintenance Due Date Last Done Comments *DEPRESSION SCREENING, JOSE L FOR PTS 18 AND OVER 12/14/2014 [...] fileas of this encounter Visit Diagnoses Diagnosis Chronic rhinitis in this encounter Insurance Payer Benefit Plan / Group Subscriber ID Type Phone Address [employer] MADHAV HUMPHREYS [id number] 1 as of this encounter
--- OUTSIDE RECORDS SUMMARY | 2023-09-26 02:28 | External Medical Summary | Summary of Care ---
Author Name Unknown Organization [place] [address] Phone Care Team Providers Care Muffler Installer Name Role Phone Dayanna Du III, MD Primary Care Provider [phone] Reason for Visit * Reason Comments eRx-Medication Refill Encounter Details Date Type Department Care Team Description 03/31/2018 Refill Family Practice [facility] [address] [place] [address] Dayanna Du III, MD [address] [place] [address] [phone] Allergies No Known Allergiesas of this encounter Medications Prescription Sig. Disp. Refills Start Date End Date Status ASPIRIN 81 MG PO TABS One daily Active ZYRTEC ALLERGY 10 MG PO TABS one daily Active ALBUTEROL SULFATE (2.5 MG/3ML) 0.083% IN [facility] one vial every 6 [...] ONCE DAILY 90 Tab 1 04/01/2018 Active potassium chloride ER 10 MEQ TBCR [...] - Dayanna Du III, MD - 04/01/2018 4:16 PM EDT Signed Prescriptions: Disp Refills potassium chloride ER 10 MEQ TBCR 90 Tab 1 Sig: TAKE ONE TABLET BY MOUTH ONCE DAILY Authorizing Provider: DAYANNA DU III * Telephone Encounter - Randi Jacobsen LPN - 04/01/2018 3:55 PM EDT Pending Prescriptions: Disp Refills potassium chloride ER 10 MEQ TBCR [Pharma*90 Tab 1 Sig: TAKE ONE TABLET BY MOUTH ONCE DAILY * Telephone Encounter - PruittClaudia juanjuliana Murguia LPN - 04/01/2018 3:22 PM EDT Pending Prescriptions: Disp Refills potassium chloride ER 10 MEQ TBCR [Pharmac*90 Tab 1 Sig: TAKE ONE TABLET BY MOUTH ONCE DAILY * Telephone Encounter - PruittClaudia juanjuliana Murguia LPN - 04/01/2018 3:21 PM EDT Formatting of this note may be different from the original. Pending Prescriptions: Disp Refills potassium chloride ER 10 MEQ TBCR [Pharma*90 Tab 1 Sig: TAKE ONE TABLET BY MOUTH ONCE DAILY Last Office Visit: 06/12/2017 Next Office Visit: No Future Appointments If no future appointments scheduled, and last appointment is greater than a year ago, please schedule patient for a follow-up appointment Last date the medication was ordered: 10/01/2017 Patient Phone Numbers Labs: Lab Results Component [...] Cardiology Kath Carlin PA-C [address] [place] [address] Health Maintenance Due Date Last Done [...]
--- OUTSIDE RECORDS SUMMARY | 2023-09-26 02:29 | External Medical Summary ---
Author Name Unknown Address [address] [place] [address] Phone Organization K01:[facility] [address] [place] [id number] Laboratory Report Ordering Provider Test Date Status RICO ALAN III 12/24/2017 08:04:00 Final Observation Date Value Abnormality Reference Status Hep C Ab 12/24/2017 14:23 NEGATIVE NEG Fin al Performing Location [facility] [address] [facility] [address]
--- OUTSIDE RECORDS SUMMARY | 2023-09-26 02:29 | External Medical Summary | Summary of Care ---
Author Name Unknown Organization [place] [address] Phone Care Team Providers Care Stacker Operator Name Role Phone Fabian Du III, MD Primary Care Provider [phone] Reason for Referral * Precert (Routine) Status Reason Specialty Diagnoses / Procedures Re ferred By Contact Referred To Contact Closed Precert Cardiac Studies Diagnoses Dilated aortic root (HCC) HTN, goal below 140/90 SOB (shortness of breath) Nonspecific abnormal electrocardiogram (ECG) (EKG) Equivocal stress echocardiogram Procedures ECHO, STRESS (DOBUTAMINE) Kath Carlin PA-C [address] [place] [address] Reason for Visit * Reason Comments Cardiology Study Dobutamine * Precert (Routine) Status Reason Specialty Diagnoses / Procedures Re ferred By Contact Referred To Contact Closed Precert Cardiac Studies Diagnoses Dilated aortic root (HCC) HTN, goal below 140/90 SOB (shortness of breath) Nonspecific abnormal electrocardiogram (ECG) (EKG) Equivocal stress echocardiogram Procedures ECHO, STRESS (DOBUTAMINE) Kath Carlin PA-C [address] [place] [address] Encounter Details Date Type Department Care Team Description 12/24/2017 Cardiac Studies Cardiac Studies, [facility] [address] [place] [address] Gw, Child And Family Counselor [address] [place] [address] [phone] Equivocal stress echocardiogram*;Dilated aortic root (HCC);HTN, goal [...] as of this encounter Progress Notes * ColletteChristiany TIGRE Huitron - 12/24/2017 9:26 AM EST Patient arrived [...] medications given during Dobutamine Stress Echo: Dobutamine [facility] 0996-9153-05; Lot [id number]; Exp. ; Metoprolol [facility] 7241-2548-50; Lot [id number]; Exp. 08/2020; Atropine [facility] [address]-6; Lot [id number]; Exp. 06-05; metoprolol 2.5 mg IV given; 2.5 ml (2.5 mg) wasted from single-use vial; Atropine 0.3 mg IV given; 7.0 ml (0.7 mg) wasted from single-use syringe in this encounter Plan of Treatment Upcoming Encounters Date Type Specialty Care Team Description 11/21/2018 Office Visit Cardiology Kath Carlin PA-C [address] [place] [address] [place] [address] Health Maintenance Due Date Last Done [...] EVERY 3 YRS- AGE 45 AND ABOVE 11/30/2019 11/30/2016, 11/26/2015, 11/28/2014, Additional history exists LIPID SCREEN EVERY 5 YRS-MEN AGE 35-75 11/30/2021 11/30/2016, 11/26/2015, 11/28/2014, Additional history exists as of this encounter Implants Not on fileas of this encounter Visit Diagnoses Diagnosis Equivocal stress echocardiog lelia - Primary Other nonspecific abnormal cardiovascular system function study Dilated aortic root (HCC) Thoracic aortic ectasia HTN, goal below 140/90 Unspecified essential hypertension SOB (shortness of breath) Shortness of breath Nonspecific abnormal electro cardiogram (ECG) (EKG) in this encounter Insurance Payer Benefit Plan / Group Subscriber ID Type Phone Address [employer] MADHAV HUMPHREYS [id number] 1 as of this encounter
--- OUTSIDE RECORDS SUMMARY | 2023-09-26 02:29 | External Medical Summary | Summary of Care ---
Author Name Unknown Organization [place] [address] Phone Care Team Providers Care Absorption Operator Name Role Phone Fabian Du III, MD Primary Care Provider + [phone] Encounter Details Date Type Department Care Team Description 12/06/2017 Orders Only Cardiology, [facility] 132 [facility] [place] [address] Kath Carlin PA-C 132 [facility] [place] [address] [phone] Allergies No Known Allergiesas of this encounter [...] 132 [facility] [place] [address] Health Maintenance Due [...] 11/30/2021 11/30/2016, 11/26/2015, 11/28/2014, Additional history exists COLONOSCOPY-EVERY 10 YRS AGE S 50-75 11/26/2025 11/26/2015, 11/26/2015, 11/29/2012, Additional history exists as of this encounter Implants Not on fileas of this encounter Results * EXERCISE STRESS ECHO (12/06/2017 1:41 PM) in this encounter Insurance Payer Benefit Plan / Group Subscriber ID Type Phone Address [employer] MADHAV HUMPHREYS [id number] 1 as of this encounter
--- OUTSIDE RECORDS SUMMARY | 2023-09-26 02:29 | External Medical Summary | Summary of Care ---
Author Name Unknown Organization [place] [address] Phone Care Team Providers Care Secondary School Registrar Name Role Phone Fabian Du III, MD Primary Care Provider + [phone] Reason for Referral * Precert (Routine) Status Reason Specialty Diagnoses / Procedures Re ferred By Contact Referred To Contact Pending Review Precert Cardiac Studies Diagnoses Dilated aortic root (HCC) HTN, goal below 140/90 SOB (shortness of breath) Nonspecific abnormal electrocardiogram (ECG) (EKG) Equivocal stress echocardiogram Procedures ECHO, STRESS (DOBUTAMINE) Kath Carlin PA-C [address] [facility] [place] [address] Reason for Visit * Reason Comments TEST RESULTS Encounter Details Date Type Department Care Team Description 12/10/2017 Telephone Cardiology, [facility] 132 [facility] [place] [address] Kath Carlin PA-C 132 [facility] [place] [address] [phone] TEST RESULTS Allergies No Known Allergiesas of this encounter [...] encounter Miscellaneous Notes * Telephone Encounter - Kath Carlin PA-C - 12/10/2017 12:32 PM EST Order signed * Telephone Encounter - Anu Harvey OSA - 12/10/2017 11:33 AM EST Spoke with pt. Pt is at work. Pt is scheduled for dse on 01/03/18. Pt requesting letter to notify shayne sent to him. Aware to read instructions in letter for test. Letter Sent w/ instructions. * Telephone Encounter - Lynn Holland RN - 12/10/2017 10:53 AM EST Called, spoke with patient. Patient verbalizing understanding of given results/instruction per message below and will comply. Order pended for dobutamine. Scheduling, please assist with arranging. * Telephone Encounter - Lynn Holland RN - 12/10/2017 10:49 AM EST ----- Message from Kath Carlin PA-C sent at 12/07/2017 3:59 PM EST ----- Patient failed to meet target HR. Low exercise capacity. SOB noted. Overall normal LV function. No inducible ischemia at workload achieved. Recommend dobutamine stress echo to r/o ischemia. in this encounter Plan of Treatment Upcoming Encounters Date Type Specialty Care Team Description 12/24/2017 Cardiac Studies Cardiac Studies Gw, Analytical Data Miner [address] [place] [address] [phone] 11/21/2018 Office Visit Cardiology Kath Carlin PA-C [address] [place] [address] [phone] Scheduled Tests Name Priority Associated Diagnoses Order S chedule ECHO, STRESS (DOBUTAMINE) Routine Dilated aortic root (HCC) HTN, goal below 140/90 SOB (shortness of breath) Nonspecific abnormal electrocardiogram (ECG) (EKG) Equivocal stress echocardiogram Expected: 12/11/2017, Expires: 01/10/2019 Health Maintenance Due Date Last Done Comments [...] / Group Subscriber ID Type Phone Address [email or web address] MADHAV HUMPHREYS [id number] 1 as of this encounter
--- OUTSIDE RECORDS SUMMARY | 2023-09-26 02:29 | External Medical Summary ---
Author Name Unknown Address Unknown Organization [place] [address] Laboratory Report Ordering Provider Test Date Status ARLINE WELSH 11/28/2017 06:00:00 Observation Date Value Abnormality Reference Status Glucose 11/28/2017 06:00 100 74-100 Fin al Performing Location [address] [address]
--- OUTSIDE RECORDS SUMMARY | 2023-09-26 02:29 | External Medical Summary | Summary of Care ---
Author Name Unknown Organization [place] [address] Phone Care Team Providers Care Hydropulper Operator Name Role Phone Fabian Du III, MD Primary Care Provider + [phone] Reason for Referral * Precert (Routine) Status Reason Specialty Diagnoses / Procedures Referred By Contact Referred To Contact Pending Review Precert Cardiac Studies Diagnoses Dilated aortic root (HCC) SOB (shortness of breath) Pericardial effusion Dyslipidemia, goal LDL below 100 HTN, goal below 130/80 Procedures ECHO, STRESS (EXERCISE) Kath Carlin PA-C [facility] [place] [address] Reason for Visit * Reason Comments FOLLOW UP Encounter Details Date Type Department Care Team Description 11/21/2017 Office Visit Cardiology, [facility] [address] [place] [address] Kath Carlin PA-C 132 [facility] [place] [address] [phone] SOB (shortness of breath)*;Dilated aortic root (HCC);Pericardial effusion;Dyslipidemia, goal LDL below 100;HTN, goal below 130/80;Nonspecific abnormal electrocardiogram (ECG) (EKG) Allergies No Known Allergiesas of this encounter Medications Prescription Sig. Disp. Refills Start Date End Date Status ASPIRIN 81 MG PO TABS One daily Active ZYRTEC ALLERGY 10 MG PO TABS one daily Active ALBUTEROL SULFATE (2.5 MG/3ML) 0.083% IN NEBU one vial every 6 hours as needed Active HM VITAMIN D3 2000 UNITS PO CAPSIndications:Aline Odonnell deficiency 1 CAPSULE DAILY 03/22/2014 Active albuterol [...] 5 08/07/2017 Active levothyroxine (LEVOXYL) 75 MCG TabletIndications: Hypothyroidism [...] MOUTH EVERY OTHER DAY 15 Tab 5 06/25/2017 11/25/2017 Discontinued as of this encounter Active Problems [...] Vital Sign Reading Time Taken Blood Pressure 124/72 11/21/2017 1:25 PM EST Pulse 76 11/21/2017 1:25 PM EST Temperature - - Respiratory Rate 16 11/21/2017 1:25 PM EST Oxygen Saturation - - Inhaled Oxygen Concentration - - Weight 111.1 kg (245 lb) 11/21/2017 1:2 5 PM EST Height - - Body Mass Index 37.25 11/21/2017 1:25 PM EST in this encounter Progress Notes * Kath Carlin PA-C - 11/21/2017 1:29 PM EST Formatting of this note may be different from the original. Cardiology F/U: History of Present Illness: Mr. Dean is a 57 year old male who presents today for routine cardiology follow-up. He was last evaluated approximately 1 year ago by the undersigned. 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 He was discharged on ibuprofen without recurrent symptoms. F/U echocardiograms demonstrated normal pericardium without pericardial effusion, normal EF, and nosignificant valvular disease with dilated arotic root at 4.5 cm, stable per echo in 11/2016. Other history significant for inflammatory pulmonary disease for which he follows with [facility], dyslipidemia, hepatic steatosis, hypertension, obesity, and chronic diastolic HF controlled on low dosefurosemide. Presents today feeling relatively well. He notes recent sinus pressure and congestion over the lastseveral weeks. Associated with sinus pressure is headaches and intermittent lightheadedness. No near syncope or associated palpitations. No unusual shortness of breath or recent chest pain. He remains active on a daily basis but admits to no regular exercise patterns. Weight is stable. No worsening lower extremity edema, orthopnea, PND. He anticipates having fasting labs this month with PCP. Review of Systems: See HPI for pertinent [...] nevi Z13.89 Dilated aortic root (HCC) I77.810 Past Surgical History: Procedure Laterality Date BRONCHOSCOPY W/ BRONCHIAL BIOPSY 2002 biopsy, open and bronchoscopy COLONOSCOPY, DIAGNOSTIC (RECTUM) 11/29/2012 COLONOSCOPY FLEXIBLE PROXIMAL DIAGNOSTIC performed by Cristy Dobbs DO at ENDOSCOPY [facility] COLONOSCOPY, DIAGNOSTIC (RECTUM) 11/26/2015 diverticulosis, repeat 10 yrs/COLONOSCOPY FLEXIBLE PROXIMAL DIAGNOSTIC performed by Cristy Dobbs DO at ENDOSCOPY [facility] DENTAL SURGERY PROCEDURE NEC Dental Surgery Procedure DRAINAGE OF HEART SAC 2002 [facility] REMOVAL OF WRIST LESION Family History Problem Relation Age of Onset No Known Problems Brother Genitourinary Disorder Father stones Hypertension Father No Past Hx Mother Cancer Paternal Grandmother pancreas Other [OTHER] Paternal Grandfather blood poisoning Lung Disorder Maternal Grandfather Alcohol and Other Disorders Associated Maternal Grandfather No Past Hx Maternal Grandmother Social History Substance Use Topics Smoking status: Never Smoker Smokeless tobacco: Former User Types: Chew Quit date: 04/21/2012 Comment: quit Alcohol use 3.0 oz/week 6 12 oz of beer per week Review of patient's allergies indicates no known allergies. Current Outpatient Prescriptions Medication Sig Dispense Refill potassium chloride ER 10 MEQ TBCR TAKE ONE TABLET BY MOUTH ONCE DAILY 90 Tab 1 levothyroxine (LEVOXYL) 75 MCG Tablet TAKE ONE TABLET BY MOUTH ONCE DAILY IN THE MORNING ON AN EMPTY STOMACH WITH A FULL GLASS OF WATER 30 Tab 5 spironolactone (ALDACTONE) 25 MG Tablet TAKE ONE TABLET BY MOUTH ONCE DAILY IN THE MORNING 30 Tab 5 furosemide (LASIX) 20 MG Tablet TAKE TWO TABLETS BY MOUTH ONCE DAILY 60 Tab 11 atorvaSTATin (LIPITOR) 40 MG Tablet TAKE ONE TABLET BY MOUTH EVERY OTHER DAY 15 Tab 5 lisinopril (PRINIVIL) 20 MG Tablet TAKE ONE TABLET BY MOUTH ONCE DAILY 30 Tab 11 Azelastine HCl 0.1 % nasal spray USE TWO SPRAYS IN EACH NOSTRIL TWICE [...] one vial every 6 hours as needed ASPIRIN 81 MG PO TABS One daily OBJECTIVE/PHYSICAL EXAMINATION: BP 124/72 | Pulse 76 | Resp 16 | Wt 245 lbs (111.131kg) | BMI 37.25 kg/m | BSA 2.31 m Wt Readings from Last 3 Encounters: 11/21/17 111.1 kg (245 lb) 06/12/17 110.5 kg (243 lb 9.6 oz) 12/29/16 110.4 kg (243 lb 6.4 oz) General: NAD. A&Ox3. Eyes: Conjunctiva are pink and non-injected, sclera clear Neck: No overt JVD. Chest: Normal respiratory effort Lungs: Clear to auscultation Cardiac Exam: RRR. No murmurs, rubs, or gallops Abdomen: Distended. Obese. +BS. Soft. Extremities: No edema Neuro: Grossly normal exam Psych: Appropriate affect and insight. DATA: EKG performed today and reviewed personally: NSR at 69 bpm, incomplete RBBB Nonspecific ST/T wave abnormality in anterolateral leads, new compared to prior. Echocardiogram report reviewed, dated 11/30/16: The examination [...] mildly abnormal (grade I). IMPRESSION and PLAN: 55 year old male 1. Abnormal EKG, risk factors for CAD (HTN, dyslipidemia, obesity); exertional dyspnea - stable 2. History of prior cardiac tamponade /effusion s/p pericardiocentesis in 2002- No recurrence per echo. Last echocardiogram completed in 2012. Stable cardiovascular signs/symptoms 3. Chronic diastolic HF with intermittent edema - stable on current diuretic regimen. Currently well compensated. 4. Dyslipidemia - labs due, has upcoming appt with PCP 5. Hypertension - controlled 6. Obesity - continued weight loss recommended. 7. Dilated aortic root, stable at 4.5 cm per echo 11/2016 PLAN: Given mildly abnormal EKG, with new ST/T wave abnormality in anterolateral leads and risk factors for CAD, recommend proceeding with exercise stress echo to r/o ischemia. Will also eval aortic root measurements. He is to continue current medications as listed above. No changes were made at today's visit. Recommend regular aerobic exercise. [place] goal would be minimum of 30 minutes done daily. Exercise can be done in divided time periods if needed. Told to avoid extremes in temperature. The patient agrees to the above plan and will call with additional questions or concerns. ER with all emergencies advised. Follow-up: Return in about 1 year (around 11/21/2018). | Check-out note: Schedule exercise stress echo Kath Carlin PA-C Department of Cardiology This chart was completed in part utilizing Alignable Speech Voice Recognition Software. Grammatical errors, random word insertions, prounoun errors, and incomplete sentences are an occasional consequence of this system due to software limitations, ambient noise, and hardware issues. Any formal questions or concerns about the content, text, or information contained within the body of this dictation should be directly addressed to the provider for clarification. in this encounter Procedure Notes * Sanya Dominguez Jr., - 11/21/2017 1:28 PM EST Associated Order(s): EKG COMPLETE (TRACING AND INTERP) REASON FOR STUDY: dilated aortic root CONCLUSIONS: Normal sinus rhythm Incomplete right bundle branch block Nonspecific T wave abnormality Abnormal ECG When compared with ECG of 21-NOV-2016 15:53, Nonspecific T wave abnormality now evident in Anterior leads Ventricular Rate: 69 Atrial Rate: 69 RI Interval: 152 QRS Duration: 102 QT/QTc: 400/428 ms P-R-T [place]: 32 : 18 : 29 degrees in this encounter Nursing Notes * Gayle Gaviria, RN - 11/21/2017 1:24 PM EST Examination Room: 1 Name: Placido Dean Date of : (1960). Reason for Visit: follow up Interim Hospitalization(s): no Problems/Concerns: Pt states feeling well overall with no complaints other than some dizziness noted with having a cold. Chest Pain/SOB: denies [facility] is a way you can talk to your provider online through e-mail. Would you like to sign up? I can activate it for you? DECLINES in this encounter Plan of Treatment Upcoming Encounters Date Type Specialty Care Team Description 12/06/2017 Imaging Cardiac Studies Gw, Sign Designer [address] [place] [address] [phone] 11/21/2018 Office Visit Cardiology Kath Carlin PA-C [address] [place] [address] [phone] Scheduled Tests Name Priority Associated Diagnoses Order S chedule ECHO, STRESS (EXERCISE) Routine Dilated aortic root (HCC) SOB (shortness of breath) Pericardial effusion Dyslipidemia, goal LDL below 100 HTN, goal below 130/80 Ordered: 11/21/2017 Health Maintenance Due Date Last Done Comments *DEPRESSION SCREENINGJOSE FOR PTS 18 AND OVER 12/14/2014 Influenza Vaccine (FLU shot) (#1) 2017 08/03/2016, 08/03/2015, 08/03/2014, Additional history exists TETANUS EVERY 10 YRS-TDAP (BOOSTRIX/ADACEL) SUGGESTED IF [...] on fileas of this encounter Results * EKG COMPLETE (TRACING AND INTERP) (11/21/2017 1:28 PM) Specimen Performing [facility] Procedure Note Sanya Dominguez Jr., - 11/21/2017 1:28 PM EST REASON FOR STUDY: dilated aortic root CONCLUSIONS: Normal sinus rhythm Incomplete right bundle branch block Nonspecific T wave abnormality Abnormal ECG When compared with ECG of 21-NOV-2016 15:53, Nonspecific T wave abnormality now evident in Anterior leads Ventricular Rate: 69 Atrial Rate: 69 RI Interval: 152 QRS Duration: 102 QT/QTc: 400/428 ms P-R-T [place]: 32 : 18 : 29 degrees in this encounter Visit Diagnoses Diagnosis SOB (shortness of breath) - Primary Shortness of breath Dilated aortic root (HCC) Thoracic aortic ectasia Pericardial effusion Unspecified disease of pericardium Dyslipidemia, goal LDL below 100 Other and unspecified hyperlipidemia HTN, goal below 130/80 Unspecified essential hypertension Nonspecific abnormal electro cardiogram (ECG) (EKG) in this encounter Insurance Payer Benefit Plan / Group Subscriber ID Type Phone Address [employer] MADHAV HUMPHREYS [id number] 1 as of this encounter"
--- OUTSIDE RECORDS SUMMARY | 2023-09-26 02:29 | External Medical Summary ---
Author Name Unknown Address [address] [place] [address] Phone Organization K01:[facility] [address] [place] [address] Laboratory Report Ordering Provider Test Date Status RICO ALAN III 12/24/2017 08:04:00 Final Observation Date Value Abnormality Reference Status Ferritin 12/24/2017 15:48 110.5 30-400 Fin al Performing Location [facility] [address] [place] [address]
--- OUTSIDE RECORDS SUMMARY | 2023-09-26 02:29 | External Medical Summary ---
Author Name Unknown Address [address] [facility] [place] [address] Phone Organization K0G:[facility] Dianne Watts [facility] [place] [address] Laboratory Report Ordering Provider Test Date Status RICO ALAN III 12/24/2017 08:04:00 Final Observation Date Value Abnormality Reference Status BUN 12/24/2017 09:55 16 6-20 Fin al Creatinine 12/24/2017 09:55 1.0 0.6-1.2 Fi nal GFR should be used to assess renal function. Plasma/Serum creatinine may not be able to properly reflect renal function in some cases. Sodium 12/24/2017 09:55 143 135-146 Fin al Potassium 12/24/2017 09:55 4.0 3.5-5.1 Fin al Cl 12/24/2017 09:55 105 98-107 Fin al CO2 12/24/2017 09:55 25 22-32 Fin al Anion gap 12/24/2017 09:55 13 7-15 Fin al Glucose 12/24/2017 09:55 95 70-120 Fin al Albumin 12/24/2017 09:55 4.2 3.8-5.0 Fin al AST (Aspartate aminotransferase) 12/24/2017 09:55 29 10-50 Final Alk Phos 12/24/2017 09:55 54 0-153 Fin al Bilirubin, Total 12/24/2017 09:55 0.4 0-1.2 Final Calcium 12/24/2017 09:55 8.7 8.4-10.2 Fin al Protein 12/24/2017 09:55 6.7 6.0-8.3 Fin al ALT (Alanine aminotransferase) 12/24/2017 09:55 44 10-50 Final E Glom Filt Rate 12/24/2017 09:55 >60.0 >60 Final If patient is [place] an, multiply estimated GFR by 1.159. Performing Location [facility] [employer] [address] [facility] [place] [address]
--- OUTSIDE RECORDS SUMMARY | 2023-09-26 02:29 | External Medical Summary | Summary of Care ---
Author Name Unknown Organization [place] [address] Phone Care Team Providers Care Nursery Technician Name Role Phone Fabian Du III, MD Primary Care Provider + [phone] Reason for Visit * Reason Comments Cardiology Study Stress Echo * Precert (Routine) Status Reason Specialty Diagnoses / Procedures Referred By Contact Referred To Contact Closed Precert Cardiac Studies Diagnoses Dilated aortic root (HCC) SOB (shortness of breath) Pericardial effusion Dyslipidemia, goal LDL below 100 HTN, goal below 130/80 Procedures ECHO, STRESS (EXERCISE) Kath Carlin PA-C [address] [place] [address] Encounter Details Date Type Department Care Team Description 12/06/2017 Imaging Cardiac Studies, [facility] [address] [place] [address] Gw, Dietary Services Director 2 132 [facility] [place] [address] [phone] Arrived Allergies No Known Allergiesas of this encounter [...] as of this encounter Progress Notes * Hammad Murdock TECH - 12/06/2017 2:33 PM EST Stress Echo completed today per provider order. No complications. in this encounter Plan of Treatment Upcoming Encounters Date Type Specialty Care Team Description 11/21/2018 Office Visit Cardiology Kath Carlin PA-C [address] [place] [address] [phone] Health Maintenance Due Date Last Done Comments [...] / Group Subscriber ID Type Phone Address [employer] MADHAV HUMPHREYS [id number] 1 as of this encounter
--- OUTSIDE RECORDS SUMMARY | 2023-09-26 02:29 | External Medical Summary | Summary of Care ---
Author Name Unknown Organization [place] [address] Phone Care Team Providers Care Gate Technician Name Role Phone Fabian Du III, MD Primary Care Provider + [phone] Reason for Visit * Reason Comments Pre Cert/Prior Auth Encounter Details Date Type Department Care Team Description 12/21/2017 Telephone Cardiology, [facility] 132 [facility] [place] [address] David Bro, 132 [facility] [place] [address] [phone] Pre Cert/Prior Auth Allergies No Known Allergiesas of this encounter [...] encounter Miscellaneous Notes * Telephone Encounter - David Bro DO - 12/21/2017 2:40 PM EST Peer to peer completed. Was on hold for a long interval. Total telephone time 2:10 pm -2:41 pm. Approved . Auth: [id number] David Bro DO in this encounter Plan of Treatment Upcoming Encounters Date Type Specialty Care Team Description 11/21/2018 Office Visit Cardiology Kath Carlin PA-C 132 [facility] [place] [address] [phone] Health Maintenance Due Date Last Done Comments [...] / Group Subscriber ID Type Phone Address [address] MADHAV HUMPHREYS [id number] 1 as of this encounter
--- OUTSIDE RECORDS SUMMARY | 2023-09-26 02:29 | External Medical Summary ---
Author Name Unknown Address [address] [facility] [place] [address] Phone Organization K0G:[facility] [employer] [address] [facility] [place] [address] Laboratory Report Ordering Provider Test Date Status RICO ALAN III 12/24/2017 08:04:00 Final Observation Date Value Abnormality Reference Status Fasting status - Reported 12/24/2017 08:06 12 Final Triglyceride 12/24/2017 13:17 56 <200 Final TRIGLYCERIDE REFERENCE RANGE S (mg/dL) <150 NORMAL 150-199 BORDERLINE HIGH 200- 499 HIGH >499 VERY HIGH Cholesterol 12/24/2017 13:17 150 <200 F inal TOTAL CHOLESTEROL REFERENCE RANGES(mg/dL) <200 DESIRABLE 200-239 BORDERLINE HIGH >239 HIGH HDL 12/24/2017 13:17 46 >39 Fin al HDL CHOLESTEROL REFERENCE RA NGES(mg/dL) <40 LOW(UNDESIRABLE) >59 HIGH(DESIRABLE) Cholesterol / HDL ratio 12/24/2017 13:17 3.3 Final LDL, (calculated) 12/24/2017 13:17 93 0-129 Final LDL CHOLESTEROL REFERENCE RA NGES(mg/dL) <100 OPTIMAL GOAL FOR HIGH RISK PATIENTS 100-129 NEAR OR ABOVE NORMAL 130-159 BORDERLINE HIGH 160-189 HIGH >189 VERY HIGH LDL, (direct) 12/24/2017 13:17 NOT APPLICABLE 0-12 9 Final Performing Location [facility] [employer] [address] [facility] [place] [address]
--- OUTSIDE RECORDS SUMMARY | 2023-09-26 02:30 | External Medical Summary ---
Author Name Unknown Organization K09:[facility] e, [address], [place] [address] Laboratory Report Ordering Provider Test Date Status DAYANNA GÓMEZ III, MD 11/28/2014 08:38:00-0500 Final Obs # Observation Date Value ABNL Reference Status Pe rforming Location 1 hours fasting 11/28/2014 08:40-0500 12 hours Final 2 Triglyceride 11/28/2014 21:07-0500 86 <200 mg/dL Final TRIGLYCERIDE REFERENCE RANGE S (mg/dL) <150 NORMAL 150-199 BORDERLINE HIGH 200-499 HIGH >499 VERY HIGH 3 Cholesterol 11/28/2014 21:07-0500 175 <200 m g/dL Final TOTAL CHOLESTEROL REFERENCE RANGES(mg/dL) <200 DESIRABLE 200-239 BORDERLINE HIGH >239 HIGH 4 HDL 11/28/2014 21:07-0500 49 >39 mg/dL Final HDL CHOLESTEROL REFERENCE RA NGES(mg/dL) <40 LOW(UNDESIRABLE) >59 HIGH(DESIRABLE) 5 Cholesterol / HDL ratio 11/28/2014 21:07-0500 3.6 Final 6 LDL, (calculated) 11/28/2014 21:07-0500 109 0-129 mg/dL Final LDL CHOLESTEROL REFERENCE RA NGES(mg/dL) <100 OPTIMAL GOAL FOR HIGH R ISK PATIENTS 100-129 NEAR OR ABOVE NORMAL 130-159 BORDERLINE HIGH 160-189 HIGH >189 VERY HIGH 7 LDL DIRECT(REFLEX) 11/28/2014 21:07-0500 NOT APPLICABLE 0-100 mg/dL Final TRIGLYCERIDE REFERENCE RANGES (mg/dL) <150 NORMAL 150-199 BORDERLINE HIGH 200-499 HIGH >499 VERY HIGH TOTAL CHOLESTEROL REFERENCE RANGES(mg/dL) <200 DESIRABLE 200-239 BORDERLINE HIGH >239 HIGH HDL CHOLESTEROL REFERENCE RANGES(mg/dL) <40 LOW(UNDESIRABLE) >59 HIGH(DESIRABLE) LDL CHOLESTEROL REFERENCE RANGES(mg/dL) <100 OPTIMAL GOAL FOR HIGH RISK PATIENTS 100-129 NEAR OR ABOVE NORMAL 130-159 BORDERLINE HIGH 160-189 HIGH >189 VERY HIGH
--- OUTSIDE RECORDS SUMMARY | 2023-09-26 02:30 | External Medical Summary ---
Author Name Unknown Organization K01:[facility], [address] [address] Laboratory Report Ordering Provider Test Date Status DAYANNA GÓMEZ III, MD 03/21/2014 08:02:00-0400 Final Obs # Observation Date Value ABNL Reference Status Pe rforming Location 1 PSA 03/21/2014 20:09-0400 0.37 <3.1 ng/mL Final
--- OUTSIDE RECORDS SUMMARY | 2023-09-26 02:30 | External Medical Summary ---
Author Name Unknown Address [address] [address] Phone Organization K0G:RICA Watts [address] [place] [address] Laboratory Report Ordering Provider Test Date Status RICO ALAN III, MD 11/30/2016 14:21:00 Final Obs # Observation Date Value Abnormality Reference Status Performing Location 0 BUN 11/30/2016 15:17 20 6-20 Final G Dianne Watts [address] [place] [address] 1 Creatinine 11/30/2016 15:17 1.0 0.6-1.2 Final GFR should be used to assess renal function. Plasma/Serum creatinine may not be able to properly reflect renal function in some cases. 2 Sodium 11/30/2016 15:17 142 135-146 Final 3 Potassium 11/30/2016 15:17 4.0 3.5-5.1 Final 4 Cl 11/30/2016 15:17 102 98-107 Final 5 CO2 11/30/2016 15:17 25 22-32 Final 6 Anion gap 11/30/2016 15:17 15 7-15 Final 7 Glucose 11/30/2016 15:17 83 70-120 Final 8 Albumin 11/30/2016 15:17 4.6 3.8-5.0 Final 9 AST (Aspartate aminotransferase) 11/30/2016 15:17 33 10-50 Final 10 Alk Phos 11/30/2016 15:17 53 0-153 Final 11 Bilirubin, Total 11/30/2016 15:17 0.8 0-1.2 Final 12 Calcium 11/30/2016 15:17 9.5 8.4-10.2 Final 13 Protein 11/30/2016 15:17 7.2 6.0-8.3 Final 14 ALT (Alanine aminotransferase) 11/30/2016 15:17 52 Above high normal 10-50 Final 15 E Glom Filt Rate 11/30/2016 15:17 >60.0 >60 Final If patient is Americ an, multiply estimated GFR by 1.159.
--- OUTSIDE RECORDS SUMMARY | 2023-09-26 02:30 | External Medical Summary ---
Author Name Unknown Organization K0G:[facility] Dianne Watts, [address] [address] Laboratory Report Ordering Provider Test Date Status DAYANNA GÓMEZ III, MD 11/28/2014 08:38:00-0500 Final Obs # Observation Date Value ABNL Reference Status Pe rforming Location 1 BUN 11/28/2014 10:52-0500 16 6-20 mg/dL Final 2 Creatinine 11/28/2014 10:52-0500 1.0 0.6-1.3 mg/dL Final GFR should be used to assess renal function. Plasma/Serum creatinine may not be able to properly reflect renal function in some cases. 3 Sodium 11/28/2014 10:52-0500 140 135-146 mm ol/L Final 4 Potassium 11/28/2014 10:52-0500 3.8 3.5-5.1 mmol/L Final 5 Cl 11/28/2014 10:52-0500 102 98-107 mmo l/L Final 6 CO2 11/28/2014 10:52-0500 23 22-32 mmol /L Final 7 Anion gap 11/28/2014 10:52-0500 15 7-15 mmo l/L Final 8 Glucose 11/28/2014 10:52-0500 102 70-120 mg/ dL Final 9 Albumin 11/28/2014 10:52-0500 4.3 3.8-5.0 g/ dL Final 10 AST (Aspartate aminotransferase) 11/28/2014 10:52-0500 23 10-50 U/L Final 11 Alk Phos 11/28/2014 10:52-0500 47 0-153 U/L Final 12 Bilirubin, Total 11/28/2014 10:52-0500 1.0 0 .3-1.3 mg/dL Final 13 Calcium 11/28/2014 10:52-0500 9.3 8.3-10.5 m g/dL Final 14 Protein 11/28/2014 10:52-0500 6.6 6.0-8.3 g/ dL Final 15 ALT (Alanine aminotransferase) 11/28/2014 10:52-0500 42 10-50 U/L Final 16 E GLOM FILT RATE 11/28/2014 10:52-0500 >60.0 > 60 Final If patient is Americ an, multiply estimated GFR by 1.159. GFR should be used to assess renal function. Plasma/Serum creatinine may not be able to properly reflect renal function in some cases. If patient is , multiply estimated GFR by 1.159.
--- OUTSIDE RECORDS SUMMARY | 2023-09-26 02:30 | External Medical Summary ---
Author Name Unknown Organization K09:[facility] [address] [place] [address] Laboratory Report Ordering Provider Test Date Status KIM MORAES PAC 10/01/2013 09:46:00-0500 Final Obs # Observation Date Value ABNL Reference Status Pe rforming Location 1 Magnesium 10/01/2013 15:01-0500 2.2 1.5-2.6 mg/dL Final
--- OUTSIDE RECORDS SUMMARY | 2023-09-26 02:30 | External Medical Summary ---
Author Name Unknown Address [address] [place] [address] Phone Organization K0G:[facility] Dianne Watts [address] [place] [address] Laboratory Report Ordering Provider Test Date Status RICO ALAN III, MD [id number] Final Obs # Observation Date Value Abnormality Reference Status Performing Location 0 BUN [id number] 12 6-20 Final GMG Dianne Watts [address] [place] [address] 1 Creatinine [id number] 1.0 0.6-1.3 Final GMG Dianne Watts [address] [place] [address] GFR should be used to assess renal function. Plasma/Serum creatinine may not be able to properly reflect renal function in some cases. 2 Sodium 846918951484 139 135-146 Final GMG Dianne Watts [address] [place] [address] 3 Potassium 533443355670 4.1 3.5-5.1 Final G MG Dianne Watts [address] [place] [address] 4 Cl 235526539329 101 98-107 Final GMG Dianne Watts [address] [place] [address] 5 CO2 [id number] 26 22-32 Final GMG Dianne Watts [address] [place] [address] 6 Anion gap 657054846363 12 7-15 Final G MG Dianne Watts [address] [place] [address] 7 Glucose 130503996875 97 70-120 Final [facility] Dianne Watts [address] [place] [address] 8 Albumin [Mass/volume ] in Serum or Plasma by Bromocresol green (BCG) dye binding method [id number] 4.6 3.8-5.0 Final GMG Mims s Watts [address] [place] [address] 9 AST (Aspartate aminotransferase) 781676986313 27 10-50 Final GMG G rays Watts [address] [place] [address] 10 Alk Phos 511129205445 55 0-153 Final GM G Dianne Watts [address] [place] [facility] [place] [address] 11 Bilirubin, Total 094808689306 1.1 0-1.2 Fi nal GMG Dianne Watts [address] [place] [facility] [place] [address] 12 Calcium 123106925801 9.7 8.3-10.5 Final GM G Dianne Watts [address] [place] [facility] [place] [address] 13 Protein 958701773431 7.2 6.0-8.3 Final GMG Dianne Watts [address] [place] [facility] [place] [address] 14 Alanine aminotransfe rase [Enzymatic activity/volume] in Serum or Plasma by With P-5'-P 480781125174 42 10-50 Final GMG Dianne Wo ods [address] [place] [facility] [place] [address] 15 E GLOM FILT RATE [id number] >60.0 >60 Fi nal GMG Dianne Watts [address] [place] [facility] [place] [address] If patient is [place] an, multiply estimated GFR by 1.159.
--- OUTSIDE RECORDS SUMMARY | 2023-09-26 02:30 | External Medical Summary ---
Author Name Unknown Address [address] [id number] Phone Organization K01:[facility] [address] [id number] Laboratory Report Ordering Provider Test Date Status RICO ALAN III, [place] [id number] Final Obs # Observation Date Value Abnormality Reference Status Performing Location 0 TSH [id number] 3.32 0.27-4.2 Final [facility] [address] [facility] [address] 1 FREE T4 REFLEXIVE [id number] NOT APPLICABLE 0.9-1.7 Final [facility] [address] [facility] [address]
--- OUTSIDE RECORDS SUMMARY | 2023-09-26 02:30 | External Medical Summary ---
Author Name Unknown Organization K01[facility], [address] [address] Laboratory Report Ordering Provider Test Date Status DAYANNA GÓMEZ III, MD 03/21/2014 08:02:00-0400 Final Obs # Observation Date Value ABNL Reference Status Pe rforming Location 1 25OH VITAMIN D TOTAL 03/21/2014 20:00-0400 26.3 L 30.0-100.0 ng/mL Final Deficient: <20.0 ng/mL Insufficient: 20.0-29.9 ng/m l Sufficient: 30.0-100.0 ng/ml High: >100.0 ng/ml Refer to [facility] for Practitioners Best Pract ice Guidelines for therapeutic recommendations. Deficient: <20.0 ng/mL Insufficient: 20.0-29.9 ng/ml Sufficient: 30.0-100.0 ng/ml High: >100.0 ng/ml Refer to [facility] for Practitioners Best Practice Guidelines for therapeutic recommendations.
--- OUTSIDE RECORDS SUMMARY | 2023-09-26 02:30 | External Medical Summary | Summary of Care ---
Author Name Unknown Organization [place] [address] Phone Care Team Providers Care Avionics Electrical Engineer Name Role Phone Dayanna Gómez III, MD Primary Care Provider + [phone] Reason for Visit * Reason Comments eRx-Medication Refill Encounter Details Date Type Department Care Team Description 11/25/2017 Refill Family Practice [facility] [address] [place] [address] Dayanna Gómez III, MD [address] [place] [address] [phone] CAD (coronary artery disease) Allergies No Known [...] OTHER DAY 15 Tab 5 11/26/2017 Active atorvaSTATin (LIPITOR) 40 MG TabletIndications: CAD [...] Encounter - Dayanna Gómez III, MD - 11/26/2017 12:55 PM EST Signed Prescriptions: Disp Refills atorvaSTATin (LIPITOR) 40 MG Tablet 15 Tab 5 Sig: TAKE ONE TABLET BY MOUTH EVERY OTHER DAY Authorizing Provider: DAYANNA GÓMEZ III * Telephone Encounter - Irene Pritchard LPN - 11/26/2017 11:09 AM EST Pending Prescriptions: Disp Refills atorvaSTATin (LIPITOR) 40 MG Tablet [Phar*15 Tab 5 Sig: TAKE ONE TABLET BY MOUTH EVERY OTHER DAY * Telephone Encounter - Irene Pritchard LPN - 11/26/2017 11:08 AM EST Pending Prescriptions: Disp Refills atorvaSTATin (LIPITOR) 40 MG Tablet [Phar*15 Tab 5 Sig: TAKE ONE TABLET BY MOUTH EVERY OTHER DAY Last Office Visit: 06/12/2017 Next Office Visit: No Future Appointments Lr 8-7-17 in this encounter Plan of Treatment Upcoming Encounters Date Type Specialty Care Team Description 12/06/2017 Imaging Cardiac Studies Gw, Family Law Attorney [address] [address] [phone] 11/21/2018 Office Visit Cardiology Kath Carlin PA-C [address] [address] [phone] Health Maintenance Due Date Last Done Comments [...] Coronary atherosclerosis of unspecified type of vessel, [place] or graft in this encounter Insurance Payer Benefit Plan / Group Subscriber ID Type Phone Address [facility] MADHAV HUMPHREYS [id number] 1 as of this encounter
--- OUTSIDE RECORDS SUMMARY | 2023-09-26 02:30 | External Medical Summary ---
Author Name Unknown Organization K01:[facility], [address] [address] Laboratory Report Ordering Provider Test Date Status DAYANNA GÓMEZ III, MD 11/28/2014 08:38:00-0500 Final Obs # Observation Date Value ABNL Reference Status Pe rforming Location 1 TSH 5 21:06-050 0 2.43 0.27-4.2 uIU/mL Final 2 FREE T4 REFLEXIVE 5 21:06-050 0 NOT APPLICABLE 0.7-1.7 ng/dL Final
--- OUTSIDE RECORDS SUMMARY | 2023-09-26 02:30 | External Medical Summary ---
Author Name Unknown Address [address] [address] Phone Organization K0G:[facility] Dianne Watts [address] [place] [address] Laboratory Report Ordering Provider Test Date Status RICO ALAN III, MD 11/30/2016 14:21:00 Final Obs # Observation Date Value Abnormality Reference Status Performing Location 0 Fasting status - Reported 11/30/2016 14:22 12 Final [facility] Dianne Watts [address] [place] [address] 1 Triglyceride 11/30/2016 23:06 92 <200 Final TRIGLYCERIDE REFERENCE RANGE S (mg/dL)<150 [id number] BORDERLINE [id number] HIGH>499 VERY HIGH 2 Cholesterol 11/30/2016 23:06 177 <200 Fin al TOTAL CHOLESTEROL REFERENCE RANGES(mg/dL)<200 [id number] BORDERLINE HIGH>239 HIGH 3 HDL 11/30/2016 23:06 47 >39 Final HDL CHOLESTEROL REFERENCE RA NGES(mg/dL)<40 LOW(UNDESIRABLE)>59 HIGH(DESIRABLE) 4 Cholesterol / HDL ratio 11/30/2016 23:06 3.8 Final 5 LDL, (calculated) 11/30/2016 23:06 112 0-129 Final LDL CHOLESTEROL REFERENCE RA NGES(mg/dL)<100 OPTIMAL GOAL FOR HIGH RISK [id number] NEAR OR ABOVE [id number] BORDERLINE [id number] HIGH>189 VERY HIGH 6 LDL, (direct) 11/30/2016 23:06 NOT APPLICABLE 0- 129 Final
--- OUTSIDE RECORDS SUMMARY | 2023-09-26 02:30 | External Medical Summary | Summary of Care ---
Author Name Unknown Organization [place] [address] Phone Care Team Providers Care Assembly Technician Name Role Phone Fabian Du III, MD Primary Care Provider + [phone] Reason for Visit * Reason Comments eRx-Medication Refill Encounter Details Date Type Department Care Team Description 09/30/2017 Refill Family Practice [facility] [address] [place] [address] Farooq Rodríguez, [address] [place] [address] [phone] Allergies No Known Allergiesas of this encounter [...] ONCE DAILY 30 Tab 11 04/03/2017 Active atorvaSTATin (LIPITOR) 40 MG TabletIndications: CAD (coronary artery disease) TAKE ONE TABLET BY MOUTH EVERY OTHER DAY 15 Tab 5 06/25/2017 Active furosemide (LASIX) 20 MG Tablet TAKE [...] ONCE DAILY 90 Tab 1 10/01/2017 Active potassium chloride ER 10 MEQ TBCR TAKE ONE TABLET BY MOUTH ONCE DAILY 90 Tab 1 04/02/2017 09/30/2017 Discontinued as of this encounter Active Problems [...] Encounters Date Type Specialty Care Team Description 11/21/2017 Office Visit Cardiology Kath Carlin, [place] [address] [address] [phone] Studies, Nurse Arrival Cardiac, RN [address] [address] [phone] Health Maintenance Due Date Last Done Comments [...] / Group Subscriber ID Type Phone Address [employer] MADHAV HUMPHREYS [id number] 1 as of this encounter
--- OUTSIDE RECORDS SUMMARY | 2023-09-26 02:30 | External Medical Summary ---
Author Name Unknown Address Unknown Organization [id number]:Performed at [address] [place] [address] Laboratory Report Ordering Provider Test Date Status RICO ALAN III, [place] [id number] Final Obs # Observation Date Value Abnormality Reference Status Performing Location 0 hours fasting [id number] 12 Final Performed at [address] [place] [address] 1 Triglyceride 700577096069 108 <200 Final Performed at [address] [place] [address] TRIGLYCERIDE REFERENCE RANGE S (mg/dL)<150 [id number] BORDERLINE [id number] HIGH>499 VERY HIGH 2 Cholesterol 661828949113 177 <200 Final Performed at [address] [place] [address] TOTAL CHOLESTEROL REFERENCE RANGES(mg/dL)<200 [id number] BORDERLINE HIGH>239 HIGH 3 HDL 371936777195 46 >39 Final Per formed at [address] [place] [address] HDL CHOLESTEROL REFERENCE RA NGES(mg/dL)<40 LOW(UNDESIRABLE)>59 HIGH(DESIRABLE) 4 Cholesterol / HDL ratio 907876348365 3.8 Final Performed at [address] [place] [address] 5 LDL, (calculated) 116581055007 109 0-129 F inal Performed at [address] [place] [address] LDL CHOLESTEROL REFERENCE RA NGES(mg/dL)<100 OPTIMAL GOAL FOR HIGH RISK [id number] NEAR OR ABOVE [id number] BORDERLINE [id number] HIGH>189 VERY HIGH 6 LDL DIRECT(REFLEX) [id number] NOT APPLICABLE 0 -129 Final Performed at [address] [place] [address]
--- OUTSIDE RECORDS SUMMARY | 2023-09-26 02:30 | External Medical Summary ---
Author Name Unknown Address Unknown Organization K0Y:[facility] [address] [place] [address] Laboratory Report Ordering Provider Test Date Status ARLINE WELSH 11/28/2017 06:00:00 Observation Date Value Abnormality Reference Status Cholesterol 11/28/2017 06:00 169 < 200 F inal Triglyceride 11/28/2017 06:00 98 < 150 Final HDL 11/28/2017 06:00 46 Fin al ATP III Classification HDL C holesterol: Desirable Low Risk: >=60 mg/dL Undesirable High Risk: <40 mg/dL LDL, (direct) 11/28/2017 06:00 103 < 130 Final CALCULATED RESULT. ATP III C LASSIFICATION = NEAR OPTIMAL / ABOVE OPTIMAL Cholesterol in VLDL [Mass/vo lume] in Serum or Plasma by calculation 11/28/2017 06:00 20 < 30 Final CALCULATED RESULT. Performing Location [facility] [address] [place] [address]
--- OUTSIDE RECORDS SUMMARY | 2023-09-26 02:30 | External Medical Summary ---
Author Name Unknown Address [facility] [address] [id number] Phone Organization K01:[address] [address] [address] [facility] [address] Laboratory Report Ordering Provider Test Date Status RICO ALAN III, MD 11/30/2016 14:21:00 Final Obs # Observation Date Value Abnormality Reference Status Performing Location 0 TSH 7 23:31 2.81 0.27-4.2 Final [address] [address] [address] [facility] [address] 1 T4, Free 7 23:31 NOT APPLICABLE 0.9-1.7 Final
--- OUTSIDE RECORDS SUMMARY | 2023-09-26 02:31 | External Medical Summary ---
Author Name [facility] Organization K01:[facility], [address] [address] Support Name Relationship Address Phone [facility], KIM PROV Unknown Unavailab le Laboratory Report Ordering Provider Test Date Status KIM CAO 01/22/2013 10:24:00-0500 Final Obs # Observation Date Value ABNL Reference Status Pe rforming Location 1 Sodium, POC (i-STAT) 01/22/2013 10:21-0500 140 135-146 mmol/L Final 2 Potassium, POC (i-STAT) 01/22/2013 10:21-0500 3.5 3.5-5.0 mmol/L Final 3 CHLORIDE ISTAT 01/22/2013 10:21-0500 107 100-111 mmol/L Final 4 Calcium, Ionized, POC (i-STAT) 01/22/2013 10:21-0500 0.99 L 1.13-1.32 mmol/L Final 5 CO2 ISTAT 01/22/2013 10:21-0500 25 22-32 mmol/L Final 6 Glucose, capillary POC (i-STAT) 01/22/2013 10:21-0500 95 70-120 mg/dL Final 7 BUN, POC (i-STAT) 01/22/2013 10:21-0500 11 10-20 mg/dL Final 8 Creatinine, POC (i-STAT) 01/22/2013 10:21-0500 0.9 0.6-1.3 mg/dL Final 9 ANION GAP POS ISTAT 01/22/2013 10:21-0500 12 10-20 mmol/L Final
--- OUTSIDE RECORDS SUMMARY | 2023-09-26 02:31 | External Medical Summary ---
Author Name DIMITRY CAO Organization K09:[facility] [address], [place] [address] Support Name Relationship Address Phone KIM JEFF Unknown Unavailab le Laboratory Report Ordering Provider Test Date Status KIM CAO 02/03/2013 07:00:00-0400 Final Obs # Observation Date Value ABNL Reference Status Pe rforming Location 1 BUN 02/03/2013 08:32-0400 22 H 6-20 mg/dL Final 2 Creatinine 02/03/2013 08:32-0400 1.0 0.6-1.3 mg/dL Final GFR should be used to assess renal function. Plasma/Serum creatinine may not be able to properly reflect renal function in some cases. 3 GFR (estimated) 02/03/2013 08:32-0400 >60.0 >6 0 mL/min Final 4 Sodium 02/03/2013 08:32-0400 140 135-146 mm ol/L Final 5 Potassium 02/03/2013 08:32-0400 3.8 3.5-5.1 mmol/L Final 6 Cl 02/03/2013 08:32-0400 101 98-111 mmo l/L Final 7 CO2 02/03/2013 08:32-0400 25 22-32 mmol /L Final 8 Anion gap 02/03/2013 08:32-0400 14 7-15 mmo l/L Final 9 Glucose 02/03/2013 08:32-0400 98 70-120 mg/ dL Final 10 Calcium 02/03/2013 08:32-0400 9.9 8.3-10.5 m g/dL Final GFR should be used to assess renal function. Plasma/Serum creatinine may not be able to properly reflect renal function in some cases.
--- OUTSIDE RECORDS SUMMARY | 2023-09-26 02:31 | External Medical Summary ---
Author Name Unknown Organization K09:[facility] [address] [place] [address] Laboratory Report Ordering Provider Test Date Status KIM MORAES NASH 10/01/2013 09:46:00-0500 Final Obs # Observation Date Value ABNL Reference Status Pe rforming Location 1 ALT (Alanine aminotransferase) 10/01/2013 15:01-0500 55 H 10-50 U/L Final
--- OUTSIDE RECORDS SUMMARY | 2023-09-26 02:31 | External Medical Summary ---
Author Name Unknown Organization K09:[facility] [address], [place] [address] Laboratory Report Ordering Provider Test Date Status KIM MORAES PAC 10/01/2013 09:46:00-0500 Final Obs # Observation Date Value ABNL Reference Status Pe rforming Location 1 BUN 10/01/2013 15:01-0500 14 6-20 mg/dL Final 2 Creatinine 10/01/2013 15:0500 1.0 0.6-1.3 mg/dL Final GFR should be used to assess renal function. Plasma/Serum creatinine may not be able to properly reflect renal function in some cases. 3 GFR (estimated) 10/01/2013 15:010500 >60.0 >6 0 mL/min Final 4 Sodium 10/01/2013 15:01-0500 139 135-146 mm ol/L Final 5 Potassium 10/01/2013 15:01-0500 4.0 3.5-5.1 mmol/L Final 6 Cl 10/01/2013 15:01-0500 103 98-111 mmo l/L Final 7 CO2 10/01/2013 15:01-0500 27 22-32 mmol /L Final 8 Anion gap 10/01/2013 15:01-0500 9 7-15 mmo l/L Final 9 Glucose 10/01/2013 15:01-0500 86 70-120 mg/ dL Final 10 Calcium 10/01/2013 15:01-0500 9.6 8.3-10.5 m g/dL Final GFR should be used to assess renal function. Plasma/Serum creatinine may not be able to properly reflect renal function in some cases.
--- OUTSIDE RECORDS SUMMARY | 2023-09-26 02:31 | External Medical Summary ---
Author Name [facility] Organization K01:[facility], [address] [facility] [address] Support Name Relationship Address Phone DIMITRY NASH, KIM PROV Unknown Unavailab le Laboratory Report Ordering Provider Test Date Status KIM LINNASHTYN CAO 02/21/2013 12:13:00-0400 Final Obs # Observation Date Value ABNL Reference Status Pe rforming Location 1 Magnesium 02/21/2013 19:31-0400 2.2 1.5-2.6 mg/dL Final
--- OUTSIDE RECORDS SUMMARY | 2023-09-26 02:31 | External Medical Summary ---
Author Name RICO CEVALLOS MD Organization K01:[facility], [address] [address] Support Name Relationship Address Phone DAYANNA GÓMEZ III, MD PROV Unknown Unavailab le Laboratory Report Ordering Provider Test Date Status DAYANNA GÓMEZ III, MD 08/07/2012 09:09:000400 Final Obs # Observation Date Value ABNL Reference Status Pe rforming Location 1 BNP, Pro-hormone 08/07/2012 18:13-0400 169 0-299 pg/mL Final Exclude Heart Failure: <300 pg/mL Diagnose Heart Failure: Age <50 yr: >450 pg/mL 50-75 yr: >900 pg/mL >75 yr: >1800 pg/mL *GFR is 30-59 mL/min: >1200 pg/mL or age-adjusted values GFR <30 mL/min: do not use, not reliable Prognostic threshold: 1000 p g/mL Exclude Heart Failure: <300 pg/mL Diagnose Heart Failure: Age <50 yr: >450 pg/mL 50-75 yr: >900 pg/mL >75 yr: >1800 pg/mL *GFR is 30-59 mL/min: >1200 pg/mL or age-adjusted values GFR <30 mL/min: do not use, not reliable Prognostic threshold: 1000 pg/mL
--- OUTSIDE RECORDS SUMMARY | 2023-09-26 02:31 | External Medical Summary ---
Author Name RICO CEVALLOS MD Organization K09:[facility], [address], [facility] [address] Support Name Relationship Address Phone DAYANNA GÓMEZ III, MD PROV Unknown Unavailab le Laboratory Report Ordering Provider Test Date Status DAYANNA GÓMEZ III, MD 01/15/2013 08:32:00-0500 Final Obs # Observation Date Value ABNL Reference Status Pe rforming Location 1 BUN 01/15/2013 09:24-0500 11 6-20 mg/dL Final 2 Creatinine 01/15/2013 09:24-0500 0.8 0.6-1.3 mg/dL Final GFR should be used to assess renal function. Plasma/Serum creatinine may not be able to properly reflect renal function in some cases. 3 GFR (estimated) 01/15/2013 09:24-0500 >60.0 >6 0 mL/min Final 4 Sodium 01/15/2013 09:24-0500 141 135-146 mm ol/L Final 5 Potassium 01/15/2013 09:24-0500 3.7 3.5-5.1 mmol/L Final 6 Cl 01/15/2013 09:24-0500 107 98-111 mmo l/L Final 7 CO2 01/15/2013 09:24-0500 25 22-32 mmol /L Final 8 Anion gap 01/15/2013 09:24-0500 9 7-15 mmo l/L Final 9 Glucose 01/15/2013 09:24-0500 96 70-120 mg/ dL Final 10 Albumin 01/15/2013 09:24-0500 4.3 3.8-5.0 g/ dL Final 11 AST (Aspartate aminotransferase) 01/15/2013 09:24-0500 37 10-50 U/L Final 12 Alk Phos 01/15/2013 09:24-0500 59 0-153 U/L Final 13 Bilirubin, Total 01/15/2013 09:24-0500 0.5 0 .3-1.3 mg/dL Final 14 Calcium 01/15/2013 09:24-0500 9.2 8.3-10.5 m g/dL Final 15 Protein 01/15/2013 09:24-0500 6.8 6.0-8.3 g/ dL Final 16 ALT (Alanine aminotransferase) 01/15/2013 09:24-0500 81 H 10-50 U/L Final GFR should be used to assess renal function. Plasma/Serum creatinine may not be able to properly reflect renal function in some cases.
--- OUTSIDE RECORDS SUMMARY | 2023-09-26 02:31 | External Medical Summary ---
Author Name [facility] Organization K01:[facility], [address] [address] Support Name Relationship Address Phone DIMITRY NASH, KIM PROV Unknown Unavailab le Laboratory Report Ordering Provider Test Date Status KIM DIMITRY CAO 02/21/2013 12:13:00-0400 Final Obs # Observation Date Value ABNL Reference Status Pe rforming Location 1 TSH 02/21/2013 18:59-0400 5.55 H 0.27-4.2 uIU/mL Final
--- OUTSIDE RECORDS SUMMARY | 2023-09-26 02:31 | External Medical Summary ---
Author Name RICO CEVALLOS MD Organization K09:[address] , [place] [address] Support Name Relationship Address Phone DAYANNA GÓMEZ III, MD [facility] Unknown Unavailab le Laboratory Report Ordering Provider Test Date Status DAYANNA GÓMEZ III, MD 11/20/2012 09:29:00-0500 Final Obs # Observation Date Value ABNL Reference Status Pe rforming Location 1 Magnesium 11/20/2012 11:49-0500 2.1 1.5-2.6 mg/dL Final
--- OUTSIDE RECORDS SUMMARY | 2023-09-26 02:31 | External Medical Summary ---
Author Name RICO CEVALLOS MD Organization K01:[place] [address] [address] Support Name Relationship Address Phone DAYANNA GÓMEZ III, MD [facility] Unknown Unavailab le Laboratory Report Ordering Provider Test Date Status DAYANNA GÓMEZ III, MD 08/07/2012 09:09:00-0400 Final Obs # Observation Date Value ABNL Reference Status Pe rforming Location 1 PSA 08/07/2012 16:15-0400 0.44 <3.1 ng/mL Final RESULTS RECHECKED RESULTS RECHECKED
--- OUTSIDE RECORDS SUMMARY | 2023-09-26 02:31 | External Medical Summary ---
Author Name RICO CEVALLOS MD Organization K01:[employer] [facility], [address] [address] Support Name Relationship Address Phone DAYANNA GÓMEZ III, MD Unknown Unavailab le Laboratory Report Ordering Provider Test Date Status DAYANNA GÓMEZ III, MD 11/20/2012 09:29:00-0500 Final Obs # Observation Date Value ABNL Reference Status Pe rforming Location 1 25OH VITAMIN D TOTAL 11/20/2012 17:39-0500 14.1 L 30.0-100.0 ng/mL Final Deficient: <20.0 ng/mL Insufficient: 20.0-29.9 ng/m l Sufficient: 30.0-100.0 ng/ml High: >100.0 ng/ml Refer to [facility] Osteoporo sis for Practitioners Best Pract ice Guidelines for therapeutic recommendations. Deficient: <20.0 ng/mL Insufficient: 20.0-29.9 ng/ml Sufficient: 30.0-100.0 ng/ml High: >100.0 ng/ml Refer to [facility] Osteoporosis for Practitioners Best Practice Guidelines for therapeutic recommendations.
--- OUTSIDE RECORDS SUMMARY | 2023-09-26 02:31 | External Medical Summary ---
Author Name [facility] Organization K01:[facility], [address] [facility] [address] Support Name Relationship Address Phone DIMITRY NASH, KIM PROV Unknown Unavailab le Laboratory Report Ordering Provider Test Date Status KIM DIMITRY CAO 02/21/2013 12:13:00-0400 Final Obs # Observation Date Value ABNL Reference Status Pe rforming Location 1 02/21/2013 19:31-0400 101 30-259 U/L Final
--- OUTSIDE RECORDS SUMMARY | 2023-09-26 02:31 | External Medical Summary ---
Author Name RICO CEVALLOS MD Organization K01:[facility], [address] [address] Support Name Relationship Address Phone DAYANNA GÓMEZ III, MD [facility] Unknown Unavailab le Laboratory Report Ordering Provider Test Date Status DAYANNA GÓMEZ III, MD 11/26/2012 10:17:00-0500 Final Obs # Observation Date Value ABNL Reference Status Pe rforming Location 1 Ferritin 11/26/2012 17:26-0500 101.0 30-400 ng/mL Final
--- OUTSIDE RECORDS SUMMARY | 2023-09-26 02:31 | External Medical Summary ---
Author Name RICO CEVALLOS MD Organization K01:[facility], [address] [address] Support Name Relationship Address Phone DAYANNA GÓMEZ III, MD PROV Unknown Unavailab le Laboratory Report Ordering Provider Test Date Status DAYANNA GÓMEZ III, MD 11/26/2012 10:17:00-0500 Final Obs # Observation Date Value ABNL Reference Status Pe rforming Location 1 Hep B surface Ag 11/27/2012 12:02-0500 NEGATIVE NEG Final
--- OUTSIDE RECORDS SUMMARY | 2023-09-26 02:31 | External Medical Summary ---
Author Name CHATA MAJANO Organization K01:[facility], [facility] [address] [address] Support Name Relationship Address Phone SRAVANTHI BRIZUELA MD Unknown Unavailabl e Laboratory Report Ordering Provider Test Date Status SRAVANTHI BRIZUELA MD 05/13/2012 09:23:00-0400 Final Obs # Observation Date Value ABNL Reference Status Pe rforming Location 1 T4, Free 05/13/2012 14:51-0400 1.17 0.7-1.7 ng/dL Final
--- OUTSIDE RECORDS SUMMARY | 2023-09-26 02:31 | External Medical Summary ---
Author Name RICO CEVALLOS MD Organization K01:[place] [address] [address] Support Name Relationship Address Phone DAYANNA GÓMEZ III, MD [facility] Unknown Unavailab le Laboratory Report Ordering Provider Test Date Status DAYANNA GÓMEZ III, MD 05/15/2013 09:08:00-0400 Final Obs # Observation Date Value ABNL Reference Status Pe rforming Location 1 TSH 05/15/2013 18:16-0400 1.89 0.27-4.2 uIU/mL Final
--- OUTSIDE RECORDS SUMMARY | 2023-09-26 02:31 | External Medical Summary ---
Author Name RICO CEVALLOS MD Organization K09:[facility] e, [address], [place] [address] Support Name Relationship Address Phone DAYANNA GÓMEZ III, MD [facility] Unknown Unavailab le Laboratory Report Ordering Provider Test Date Status DAYANNA GÓMEZ III, MD 01/15/2013 08:32:00-0500 Final Obs # Observation Date Value ABNL Reference Status Pe rforming Location 1 WBC 01/15/2013 08:48-0500 7.72 4.00-10.80 K/uL Final 2 RBC 01/15/2013 08:48-0500 4.51 4.50-5.25 M/uL Final 3 HGB 01/15/2013 08:48-0500 13.6 L 14.0-16.5 g/dL Final 4 HCT 01/15/2013 08:48-0500 39.6 L 40.0-47.0 % Final 5 MCV 01/15/2013 08:48-0500 87.8 82.0-99.5 fL Final 6 MCH 01/15/2013 08:48-0500 30.2 27.0-34.0 pg Final 7 MCHC 01/15/2013 08:48-0500 34.3 32.0-36.0 g/dL Final 8 RDW 01/15/2013 08:48-0500 13.1 11.5-15.5 % Final 9 PLT 01/15/2013 08:48-0500 165 140-400 K/uL Final 10 MPV 01/15/2013 08:48-0500 10.8 6.6-11.1 fL Final 11 diff type 01/15/2013 08:48-0500 AUTO Final 12 Segs 01/15/2013 08:49-0500 50 40-75 % Final 13 Lymphocytes 01/15/2013 08:49-0500 36 18-42 % Final 14 Monos 01/15/2013 08:49-0500 10 1-11 % Final 15 Eosinophils 01/15/2013 08:49-0500 3 0-6 % Final 16 Basos 01/15/2013 08:49-0500 1 0-2 % Final 17 Segmented Neutrophils, Abs 01/15/2013 08:49-0500 3.86 1.8-7.7 K/uL Final 18 Lymphs, Abs 01/15/2013 08:49-0500 2.78 1.0-4.8 K/uL Final 19 Monos, Abs 01/15/2013 08:49-0500 0.77 0.0-1.1 K/uL Final 20 Eos, Abs 01/15/2013 08:49-0500 0.23 0.0-0.7 K/uL Final 21 Basos, Abs 01/15/2013 08:49-0500 0.08 0.0-0.2 K/uL Final
--- OUTSIDE RECORDS SUMMARY | 2023-09-26 02:31 | External Medical Summary ---
Author Name RICO CEVALLOS MD Organization K01:[place] [address] [address] Support Name Relationship Address Phone DAYANNA GÓMEZ III, MD [facility] Unknown Unavailab le Laboratory Report Ordering Provider Test Date Status DAYANNA GÓMEZ III, MD 11/20/2012 09:29:00-0500 Final Obs # Observation Date Value ABNL Reference Status Pe rforming Location 1 TSH 11/20/2012 17:39-0500 4.94 H 0.27-4.2 uIU/mL Final
--- OUTSIDE RECORDS SUMMARY | 2023-09-26 02:31 | External Medical Summary ---
Author Name Unknown Organization K0G:[facility] Dianne Watts, [address], [place] [address] Laboratory Report Ordering Provider Test Date Status KIM MORAES PAC 10/01/2013 09:46:00-0500 Final Obs # Observation Date Value ABNL Reference Status Pe rforming Location 1 hours fasting 10/01/2013 09:48-0500 12 hours Final 2 Triglyceride 10/01/2013 21:15-0500 125 <200 mg/dL Final TRIGLYCERIDE REFERENCE RANGE S (mg/dL) __ <150 NORMAL 150-199 BORDERLINE HIGH 200-499 HIGH >499 VERY HIGH 3 Cholesterol 10/01/2013 21:15-0500 212 H <200 m g/dL Final TOTAL CHOLESTEROL REFERENCE RANGES(mg/dL) __ <200 DESIRABLE 200-239 BORDERLINE HIGH >239 HIGH 4 HDL 10/01/2013 21:15-0500 41 >39 mg/dL Final HDL CHOLESTEROL REFERENCE RA NGES(mg/dL) __ <40 LOW(UNDESIRABLE) >59 HIGH(DESIRABLE) 5 Cholesterol / HDL ratio 10/01/2013 21:15-0500 5.2 Final 6 LDL, (calculated) 10/01/2013 21:15-0500 146 H 0-129 mg/dL Final LDL CHOLESTEROL REFERENCE RA NGES(mg/dL) __ <100 OPTIMAL GOAL FOR HIGH R ISK PATIENTS 100-129 NEAR OR ABOVE NORMAL 130-159 BORDERLINE HIGH 160-189 HIGH >189 VERY HIGH 7 LDL DIRECT(REFLEX) 10/01/2013 21:15-0500 NOT APPLICABLE 0-100 mg/dL Final TRIGLYCERIDE REFERENCE [...]
--- OUTSIDE RECORDS SUMMARY | 2023-09-26 02:31 | External Medical Summary ---
Author Name RICO CEVALLOS MD Organization K01:[facility], [address] [address] Support Name Relationship Address Phone DAYANNA GÓMEZ III, MD [facility] Unknown Unavailab le Laboratory Report Ordering Provider Test Date Status DAYANNA GÓMEZ III, MD 11/26/2012 10:17:00-0500 Final Obs # Observation Date Value ABNL Reference Status Pe rforming Location 1 Hep C Ab 11/27/2012 12:19-0500 NEGATIVE NEG Final
--- OUTSIDE RECORDS SUMMARY | 2023-09-26 02:31 | External Medical Summary ---
Author Name RICO CEVALLOS MD Organization K09:[facility] e, [address], [place] [address] Support Name Relationship Address Phone RICO CEVALLOS MD DAYANNA PROV Unknown Unavailab le Laboratory Report Ordering Provider Test Date Status DAYANNA GÓMEZ III, MD 08/07/2012 09:09:000400 Final Obs # Observation Date Value ABNL Reference Status Pe rforming Location 1 BUN 08/07/2012 10:0 12 6-20 mg/dL Final 2 Creatinine 08/07/2012 10: 1.0 0.6-1.3 mg/dL Final GFR should be used to assess renal function. Plasma/Serum creatinine may not be able to properly reflect renal function in some cases. 3 GFR (estimated) 08/07/2012 10:0 >60.0 >6 0 mL/min Final 4 Sodium 08/07/2012 10:0400 138 135-146 mm ol/L Final 5 Potassium 08/07/2012 10:0400 4.1 3.5-5.1 mmol/L Final 6 Cl 08/07/2012 10:0400 102 98-111 mmo l/L Final 7 CO2 08/07/2012 10:0 29 22-32 mmol /L Final 8 Anion gap 08/07/2012 10:0400 7 7-15 mmo l/L Final 9 Glucose 08/07/2012 10:0400 95 70-120 mg/ dL Final 10 Calcium 08/07/2012 10:0400 9.6 8.3-10.5 m g/dL Final GFR should be used to assess renal function. Plasma/Serum creatinine may not be able to properly reflect renal function in some cases.
--- OUTSIDE RECORDS SUMMARY | 2023-09-26 02:31 | External Medical Summary ---
Author Name RICO CEVALLOS MD Organization K09:[facility], [address], [place] [address] Support Name Relationship Address Phone DAYANNA GÓMEZ III, MD PR[facility] Unknown Unavailab le Laboratory Report Ordering Provider Test Date Status DAYANNA GÓMEZ III, MD 08/07/2012 09:09:00-0400 Final Obs # Observation Date Value ABNL Reference Status Pe rforming Location 1 hours fasting 08/07/2012 09:11-0400 12 hours Final 2 Triglyceride 08/07/2012 16:02-0400 124 <200 mg/dL Final TRIGLYCERIDE REFERENCE RANGE S (mg/dL) __ <150 NORMAL 150-199 BORDERLINE HIGH 200-499 HIGH >499 VERY HIGH 3 Cholesterol 08/07/2012 16:02-0400 234 H <200 m g/dL Final TOTAL CHOLESTEROL REFERENCE RANGES(mg/dL) __ <200 DESIRABLE 200-239 BORDERLINE HIGH >239 HIGH 4 HDL 08/07/2012 16:02-0400 48 >39 mg/dL Final HDL CHOLESTEROL REFERENCE RA NGES(mg/dL) __ <40 LOW(UNDESIRABLE) >59 HIGH(DESIRABLE) 5 Cholesterol / HDL ratio 08/07/2012 16:02-0400 4.9 Final 6 LDL, (calculated) 08/07/2012 16:02-0400 161 H 0-129 mg/dL Final LDL CHOLESTEROL REFERENCE RA NGES(mg/dL) __ <100 OPTIMAL GOAL FOR HIGH R ISK PATIENTS 100-129 NEAR OR ABOVE NORMAL 130-159 BORDERLINE HIGH 160-189 HIGH >189 VERY HIGH 7 LDL DIRECT(REFLEX) 08/07/2012 16:02-0400 NOT APPLICABLE 0-100 mg/dL Final TRIGLYCERIDE REFERENCE [...]
--- OUTSIDE RECORDS SUMMARY | 2023-09-26 02:31 | External Medical Summary ---
Author Name [facility] Organization K09:[facility] [address] [place] [address] Support Name Relationship Address Phone KIM JEFF PROV Unknown Unavailab le Laboratory Report Ordering Provider Test Date Status KIM HERNANDEZShad CAO 02/21/2013 12:13:00-0400 Final Obs # Observation Date Value ABNL Reference Status Pe rforming Location 1 ESR 02/21/2013 15:20-0400 13 0-15 mm/hour Final
--- OUTSIDE RECORDS SUMMARY | 2023-09-26 02:31 | External Medical Summary ---
Author Name DIMITRY [facility] Organization K01:[facility], [address] [address] Support Name Relationship Address Phone DIMITRY CAO, KIM MASON Unknown Unavailab le Laboratory Report Ordering Provider Test Date Status KIM CAO 02/21/2013 12:13:000400 Final Obs # Observation Date Value ABNL Reference Status Pe rforming Location 1 BUN 02/21/2013 19:31-0400 18 6-20 mg/dL Final 2 Creatinine 02/21/2013 19:31040 1.2 0.6-1.3 mg/dL Final GFR should be used to assess renal function. Plasma/Serum creatinine may not be able to properly reflect renal function in some cases. 3 GFR (estimated) 02/21/2013 19:310400 >60.0 >6 0 mL/min Final 4 Sodium 02/21/2013 18:42-0400 140 135-146 mm ol/L Final 5 Potassium 02/21/2013 18:42-0400 4.1 3.5-5.1 mmol/L Final 6 Cl 02/21/2013 18:42-0400 103 98-111 mmo l/L Final 7 CO2 02/21/2013 19:310400 25 22-32 mmol /L Final 8 Anion gap 02/21/2013 19:31-0400 12 7-15 mmo l/L Final 9 Glucose 02/21/2013 19:31-0400 86 70-120 mg/ dL Final 10 Albumin 02/21/2013 19:31-0400 4.8 3.8-5.0 g/ dL Final 11 AST (Aspartate aminotransferase) 02/21/2013 19:31-0400 47 10-50 U/L Final RESULT MAY BE FALSELY ELEVAT ED DUE TO HEMOLYSIS 12 Alk Phos 02/21/2013 19:31-0400 56 0-153 U/L Final 13 Bilirubin, Total 02/21/2013 19:31-0400 0.5 0 .3-1.3 mg/dL Final 14 Calcium 02/21/2013 19:31-0400 8.9 8.3-10.5 m g/dL Final 15 Protein 02/21/2013 19:31-0400 7.1 6.0-8.3 g/ dL Final 16 ALT (Alanine aminotransferase) 02/21/2013 19:31-0400 91 H 10-50 U/L Final GFR should be used to assess renal function. Plasma/Serum creatinine may not be able to properly reflect renal function in some cases. RESULT MAY BE FALSELY ELEVATED DUE TO HEMOLYSIS
--- OUTSIDE RECORDS SUMMARY | 2023-09-26 02:31 | External Medical Summary ---
Author Name RICO CEVALLOS MD Organization K09:[facility] e, [address], [place] [address] Support Name Relationship Address Phone DAYANNA GÓMEZ III, MD PROV Unknown Unavailab le Laboratory Report Ordering Provider Test Date Status DAYANNA GÓMEZ III, MD 11/20/2012 09:29:00-0500 Final Obs # Observation Date Value ABNL Reference Status Pe rforming Location 1 hours fasting 11/20/2012 09:30-0500 12 hours Final 2 Triglyceride 11/20/2012 17:46-0500 100 <200 mg/dL Final TRIGLYCERIDE REFERENCE RANGE S (mg/dL) __ <150 NORMAL 150-199 BORDERLINE HIGH 200-499 HIGH >499 VERY HIGH 3 Cholesterol 11/20/2012 17:46-0500 157 <200 m g/dL Final TOTAL CHOLESTEROL REFERENCE RANGES(mg/dL) __ <200 DESIRABLE 200-239 BORDERLINE HIGH >239 HIGH 4 HDL 11/20/2012 17:46-0500 42 >39 mg/dL Final HDL CHOLESTEROL REFERENCE RA NGES(mg/dL) __ <40 LOW(UNDESIRABLE) >59 HIGH(DESIRABLE) 5 Cholesterol / HDL ratio 11/20/2012 17:46-0500 3.7 Final 6 LDL, (calculated) 11/20/2012 17:46-0500 95 0-129 mg/dL Final LDL CHOLESTEROL REFERENCE RA NGES(mg/dL) __ <100 OPTIMAL GOAL FOR HIGH R ISK PATIENTS 100-129 NEAR OR ABOVE NORMAL 130-159 BORDERLINE HIGH 160-189 HIGH >189 VERY HIGH 7 LDL DIRECT(REFLEX) 11/20/2012 17:46-0500 NOT APPLICABLE 0-100 mg/dL Final TRIGLYCERIDE REFERENCE [...]
--- OUTSIDE RECORDS SUMMARY | 2023-09-26 02:31 | External Medical Summary ---
Author Name RICO CEVALLOS MD Organization K09:[facility], [address], [place] [address] Support Name Relationship Address Phone RICO CEVALLOS MD DAYANNA PROV Unknown Unavailab le Laboratory Report Ordering Provider Test Date Status DAYANNA GÓMEZ III, MD 05/15/2013 09:08:00-0400 Final Obs # Observation Date Value ABNL Reference Status Pe rforming Location 1 BUN 05/15/2013 10:05-0400 16 6-20 mg/dL Final 2 Creatinine 05/15/2013 10:05-0400 1.1 0.6-1.3 mg/dL Final GFR should be used to assess renal function. Plasma/Serum creatinine may not be able to properly reflect renal function in some cases. 3 GFR (estimated) 05/15/2013 10:05-0400 >60.0 >6 0 mL/min Final 4 Sodium 05/15/2013 10:05-0400 140 135-146 mm ol/L Final 5 Potassium 05/15/2013 10:05-0400 4.1 3.5-5.1 mmol/L Final 6 Cl 05/15/2013 10:05-0400 103 98-111 mmo l/L Final 7 CO2 05/15/2013 10:05-0400 27 22-32 mmol /L Final 8 Anion gap 05/15/2013 10:05-0400 10 7-15 mmo l/L Final 9 Glucose 05/15/2013 10:05-0400 103 70-120 mg/ dL Final 10 Calcium 05/15/2013 10:05-0400 9.2 8.3-10.5 m g/dL Final GFR should be used to assess renal function. Plasma/Serum creatinine may not be able to properly reflect renal function in some cases.
--- OUTSIDE RECORDS SUMMARY | 2023-09-26 02:31 | External Medical Summary ---
Author Name RICO CEVALLOS MD Organization K09:[address] , [place] [address] Support Name Relationship Address Phone DAYANNA GÓMEZ III, MD PR[facility] Unknown Unavailab le Laboratory Report Ordering Provider Test Date Status DAYANNA GÓMEZ III, MD 01/15/2013 08:32:00-0500 Final Obs # Observation Date Value ABNL Reference Status Pe rforming Location 1 ESR 01/15/2013 09:29-0500 10 0-15 mm/hour Final
--- OUTSIDE RECORDS SUMMARY | 2023-09-26 02:31 | External Medical Summary ---
Author Name Unknown Organization K01:[facility], [address] [id number] Support Name Relationship Address Phone MARYLOU DOM PEÑA PROV Unknown Unavailable Laboratory Report Ordering Provider Test Date Status DOM HICKMAN DO 07/20/2011 10:57-0400 Final Obs # Observation Date Value ABNL Reference Status Pe rforming Location 1 TSH 07/20/2011 21:04-0400 7.13 H 0.27-4.2 uIU/mL Final
--- OUTSIDE RECORDS SUMMARY | 2023-09-26 02:31 | External Medical Summary ---
Author Name RICO CEVALLOS MD Organization K09:[facility], [address], [place] [address] Support Name Relationship Address Phone DAYANNA GÓMEZ III, MD PROV Unknown Unavailab le Laboratory Report Ordering Provider Test Date Status DAYANNA GÓMEZ III, MD 11/20/2012 09:29:00-0500 Final Obs # Observation Date Value ABNL Reference Status Pe rforming Location 1 BUN 11/20/2012 11:49-0500 12 6-20 mg/dL Final 2 Creatinine 11/20/2012 11:49-0500 0.9 0.6-1.3 mg/dL Final GFR should be used to assess renal function. Plasma/Serum creatinine may not be able to properly reflect renal function in some cases. 3 GFR (estimated) 11/20/2012 11:49-0500 >60.0 >6 0 mL/min Final 4 Sodium 11/20/2012 11:49-0500 140 135-146 mm ol/L Final 5 Potassium 11/20/2012 11:49-0500 3.7 3.5-5.1 mmol/L Final 6 Cl 11/20/2012 11:49-0500 103 98-111 mmo l/L Final 7 CO2 11/20/2012 11:49-0500 26 22-32 mmol /L Final 8 Anion gap 11/20/2012 11:49-0500 11 7-15 mmo l/L Final 9 Glucose 11/20/2012 11:49-0500 87 70-120 mg/ dL Final 10 Albumin 11/20/2012 11:49-0500 4.4 3.8-5.0 g/ dL Final 11 AST (Aspartate aminotransferase) 11/20/2012 11:49-0500 26 10-50 U/L Final 12 Alk Phos 11/20/2012 11:49-0500 53 0-153 U/L Final 13 Bilirubin, Total 11/20/2012 11:49-0500 0.6 0 .3-1.3 mg/dL Final 14 Calcium 11/20/2012 11:49-0500 9.1 8.3-10.5 m g/dL Final 15 Protein 11/20/2012 11:49-0500 6.6 6.0-8.3 g/ dL Final 16 ALT (Alanine aminotransferase) 11/20/2012 11:49-0500 63 H 10-50 U/L Final GFR should be used to assess renal function. Plasma/Serum creatinine may not be able to properly reflect renal function in some cases.
--- OUTSIDE RECORDS SUMMARY | 2023-09-26 02:31 | External Medical Summary ---
Author Name RICO CEVALLOS MD Organization K01:[facility], [facility] [address] [address] Support Name Relationship Address Phone DAYANNA GÓMEZ III, MD Unknown Unavailab le Laboratory Report Ordering Provider Test Date Status DAYANNA GÓMEZ III, MD 11/26/2012 10:17:00-0500 Final Obs # Observation Date Value ABNL Reference Status Pe rforming Location 1 T4, Free 11/26/2012 17:28-0500 1.10 0.7-1.7 ng/dL Final
--- OUTSIDE RECORDS SUMMARY | 2023-09-26 02:31 | External Medical Summary ---
Author Name RICO CEVALLOS MD Organization K01:[place] [address] [address] Support Name Relationship Address Phone DAYANNA GÓMEZ III, MD [facility] Unknown Unavailab le Laboratory Report Ordering Provider Test Date Status DAYANNA GÓMEZ III, MD 11/26/2012 10:17:00-0500 Final Obs # Observation Date Value ABNL Reference Status Pe rforming Location 1 TSH 11/26/2012 17:26-0500 5.81 H 0.27-4.2 uIU/mL Final
--- OUTSIDE RECORDS SUMMARY | 2023-09-26 02:31 | External Medical Summary ---
Author Name DIMITRY PAC Organization K01:[facility], [address] [address] Support Name Relationship Address Phone DIMITRY NASHKIM PROV Unknown Unavailab le Laboratory Report Ordering Provider Test Date Status KIM LINNASHTYN CAO 02/21/2013 12:13:00-0400 Final Obs # Observation Date Value ABNL Reference Status Pe rforming Location 1 T4, Free 02/21/2013 18:59-0400 1.08 0.7-1.7 ng/dL Final
--- OUTSIDE RECORDS SUMMARY | 2023-09-26 02:31 | External Medical Summary ---
Author Name CHATA MAJANO Organization K01:[place] [address] [address] Support Name Relationship Address Phone SRAVANTHI BRIZUELA MD [facility] Unknown Unavailabl e Laboratory Report Ordering Provider Test Date Status SRAVANTHI BRIZUELA MD 05/13/2012 09:23:00-0400 Final Obs # Observation Date Value ABNL Reference Status Pe rforming Location 1 TSH 05/13/2012 14:51-0400 6.99 H 0.27-4.2 uIU/mL Final
--- OUTSIDE RECORDS SUMMARY | 2023-09-26 02:31 | External Medical Summary ---
Author Name Unknown Organization K09:[facility] [place] [facility], [address], [place] [address] Support Name Relationship Address Phone DOM HICKMAN DO PROV Unknown Unavailable Laboratory Report Ordering Provider Test Date Status DOM HICKMAN DO 07/20/2011 10:57-0400 Final Obs # Observation Date Value ABNL Reference Status Pe rforming Location 1 WBC 07/20/2011 11:320400 6.84 4.00-10.80 K/uL Final 2 RBC 07/20/2011 11:320400 4.72 4.50-5.25 M/uL Final 3 HGB 07/20/2011 11:32-0400 14.1 14.0-16.5 g/dL Final 4 HCT 07/20/2011 11:32-0400 40.3 40.0-47.0 % Final 5 MCV 07/20/2011 11:32-0400 85.4 82.0-99.5 fL Final 6 MCH 07/20/2011 11:32-0400 29.9 27.0-34.0 pg Final 7 MCHC 07/20/2011 11:32-0400 35.0 32.0-36.0 g/dL Final 8 RDW 07/20/2011 11:320400 13.4 11.5-15.5 % Final 9 PLT 07/20/2011 11:32-0400 170 140-400 K/uL Final 10 MPV 07/20/2011 11:320400 10.1 6.6-11.1 fL Final
--- OUTSIDE RECORDS SUMMARY | 2023-09-26 02:32 | External Medical Summary ---
Author Name Unknown Organization K09:[facility] [place], [place] [address], [address], [place] [address] Support Name Relationship Address Phone PAPI PATEL PROV Unknown Unav ailable Laboratory Report Ordering Provider Test Date Status PAPI PATEL 05/12/2011 14: Fi nal Obs # Observation Date Value ABNL Reference Status Pe rforming Location 1 HOURS FASTING 05/12/20 11 14:11-04 00 12 hours Final 2 Triglyceride 05/12/20 11 23:12-04 00 156 <200 mg/dL Final 3 Triglyceride 05/12/20 11 23:12-04 00 Final 4 Triglyceride 05/12/20 11 23:12-04 00 TRIGLYCERIDE REFERENCE RANGES (mg/dL) Final 5 Triglyceride 05/12/20 11 23:12-04 00 Final 6 Triglyceride 05/12/20 11 23:12-04 00 <150 NORMAL Final 7 Triglyceride 05/12/20 11 23:12-04 00 150-199 BORDERLINE HIGH Final 8 Triglyceride 05/12/20 11 23:12-04 00 200-499 HIGH Final 9 Triglyceride 05/12/20 11 23:12-04 00 >499 VERY HIGH Final 10 Cholesterol 05/12/20 11 23:12-04 00 191 <200 mg/dL Final 11 HDL 05/12/20 11 23:12-04 00 38 L 40-59 mg/dL Final 12 Cholesterol / HDL ratio 05/12/20 11 23:12-04 00 5.0 Final 13 LDL (calculated) 05/12/20 11 23:12-04 00 122 0-129 mg/dL Final 14 LDL (calculated) 05/12/20 11 23:12-04 00 Final 15 LDL (calculated) 05/12/20 11 23:12-04 00 LIPID PANEL REFERENCE RANGES (mg/dL) Final 16 LDL (calculated) 05/12/20 11 23:12-04 00 Final 17 LDL (calculated) 05/12/20 11 23:12-04 00 LDL CHOLESTEROL Final 18 LDL (calculated) 05/12/20 11 23:12-04 00 <100 OPTIMAL GOAL FOR HIGH RISK PATIENTS Final 19 LDL (calculated) 05/12/20 11 23:12-04 00 100-129 NEAR OR ABOVE NORMAL Final 20 LDL (calculated) 05/12/20 11 23:12-04 00 130-159 BORDERLINE HIGH Final 21 LDL (calculated) 05/12/20 11 23:12-04 00 160-189 HIGH Final 22 LDL (calculated) 05/12/20 11 23:12-04 00 >189 VERY HIGH Final 23 LDL (calculated) 05/12/20 11 23:12-04 00 Final 24 LDL (calculated) 05/12/20 11 23:12-04 00 TOTAL CHOLESTEROL Final 25 LDL (calculated) 05/12/20 11 23:12-04 00 <200 DESIRABLE Final 26 LDL (calculated) 05/12/20 11 23:12-04 00 200-239 BORDERLINE HIGH Final 27 LDL (calculated) 05/12/20 11 23:12-04 00 >239 HIGH Final 28 LDL (calculated) 05/12/20 11 23:12-04 00 Final 29 LDL (calculated) 05/12/20 11 23:12-04 00 HDL [id number] Final 30 LDL (calculated) 05/12/20 11 23:12-04 00 <40 LOW Final 31 LDL (calculated) 05/12/20 11 23:12-04 00 40-59 NORMAL Final 32 LDL (calculated) 05/12/20 11 23:12-04 00 >59 HIGH Final
--- OUTSIDE RECORDS SUMMARY | 2023-09-26 02:32 | External Medical Summary ---
Author Name Unknown Organization K01:[facility], [address] [facility] [address] Support Name Relationship Address Phone SHIRLEY PAPI CAO PROV Unknown Unav ailable Laboratory Report Ordering Provider Test Date Status PAPI PATEL 05/12/2011 14:10-0400 nal Obs # Observation Date Value ABNL Reference Status Pe rforming Location 1 LDL, Direct Measure 05/12/2011 23:12-0400 136 H 0-129 mg/dL Final
--- OUTSIDE RECORDS SUMMARY | 2023-09-26 02:32 | External Medical Summary ---
Author Name Unknown Organization K03:[facility], [address] [place] [address] Support Name Relationship Address Phone DOM HICKMAN DO PROV Unknown Unavailable Laboratory Report Ordering Provider Test Date Status DOM HICKMAN DO 07/20/2011 10:57-0400 Final Obs # Observation Date Value ABNL Reference Status Pe rforming Location 1 T4, free by Dialysis 07/26/2011 16:48-0400 2.3 0.8-2.7 ng/dL Final 2 T4, Total 07/26/2011 16:48-0400 7.3 4.5-12.0 mcg/dL Final
--- OUTSIDE RECORDS SUMMARY | 2023-09-26 02:32 | External Medical Summary ---
Author Name Unknown Organization K09:[facility] [address], [address], [place] [address] Support Name Relationship Address Phone PAPI PATEL PROV Unknown Unav ailable Laboratory Report Ordering Provider Test Date Status PAPI PATEL 05/12/2011 14:0400 Fi nal Obs # Observation Date Value ABNL Reference Status Pe rforming Location 1 BUN 05/12/2011 15:0400 12 6-20 mg/dL Final 2 Creatinine 05/12/2011 15:0400 1.0 0.7-1.5 mg/dL Final 3 Sodium 05/12/2011 15:0400 137 135-146 mmol/L Final 4 Potassium 05/12/2011 15:0400 3.8 3.5-5.1 mmol/L Final 5 Cl 05/12/2011 15:070400 102 98-111 mmol/L Final 6 CO2 05/12/2011 15:0400 27 22-32 mmol/L Final 7 Glucose 05/12/2011 15:0400 92 70-120 mg/dL Final 8 Albumin, Serum 05/12/2011 15:0400 4.3 3.8-5.0 g/dL Final 9 AST (Aspartate aminotransferase) 05/12/2011 15:0400 14 10-50 U/L Final 10 Alk Phos 05/12/2011 15:0400 58 25-125 U/L Final 11 Bilirubin, Total 05/12/2011 15:07-0400 0.6 0.3-1.3 mg/dL Final 12 Calcium 05/12/2011 15:07-0400 8.8 8.3-10.5 mg/dL Final 13 Protein 05/12/2011 15:07-0400 6.6 6.0-8.3 g/dL Final 14 ALT (Alanine aminotransferase) 05/12/2011 15:0400 9 L 10-50 U/L Final 15 Anion gap 05/12/2011 15:07-0400 8 7-15 mmol/L Final 16 GFR / 1.73 sq M.predicted 05/12/2011 15:07-0400 >60.0 >60 mL/min Final
== END 2023-09-21 12:40 | disposition home or self-care (01) | DRG 871 ==
LOC: ED 21:55 → INTOOBSV 09-20 01:25 → SUATTDRO 09-20 01:25 → 4W 09-20 01:25 → 3N 09-20 22:37

== ENCOUNTER 2024-04-04 20:25 | Observation (INO) ==
[2024-04-04 20:56] LABS: Basophils % (auto) 1.1 %; Eosinophils # (auto) 0.29 K/uL (0.00-0.50); Eosinophils % (auto) 3.1 %; Hematocrit (blood only) 39.4 % (42.0-52.0); Hemoglobin 13.7 g/dl (14.0-18.0); Immature Granulocytes # (auto) 0.03 K/uL (0.01-0.20); Immature Granulocytes % (auto) 0.3 %; Lymphocytes # (auto) 3.43 K/uL (1.20-3.40); Lymphocytes % (auto) 36.2 %; Mean Corpuscular Hemoglobin 30.5 pg (25.0-34.0); Mean Corpuscular Hgb Conc 34.8 g/dL (32.0-36.0); Mean Corpuscular Volume 87.8 fL (80.0-100.0); Mean Platelet Volume 10.7 fL (9.4-12.4); Monocytes # (auto) 0.76 K/uL (0.11-0.59); Neutrophils # (auto) 4.87 K/uL (1.40-6.50); Neutrophils % (auto) 51.3 %; Platelet Count 192 K/uL (130-400); RDW Coefficient of Variation 13.2 % (11.5-14.5); RDW Standard Deviation 42.1 fL (36.4-46.3); Red Blood Count 4.49 M/uL (4.70-6.10); White Blood Count 9.48 K/ul (4.8-10.8)
[2024-04-04 21:23] LABS: Albumin Globulin Ratio 1.6 (0.9-2); Albumin Level 4.2 gm/dl (3.4-5.0); BUN Creatinine Ratio 12.3 (10-20); Bilirubin,Total 0.5 mg/dl (0.2-1.0); Calcium 9.1 mg/dl (8.6-10.3); Creatinine Clr Calc Pharmacy 97.2 ml/min; Est GFR (African American) 87.4 ml/min; Est GFR (Non-African American) 75.4 ml/min; Globulin 2.6 gm/dl (2.5-4.0); Potassium 3.9 mmol/L (3.5-5.1); Total Protein 6.8 gm/dl (6.0-8.3)
[2024-04-04 21:29] LABS: Troponin I High Sensitivity 8.3 pg/ml (0-20)
[2024-04-04 21:33] LABS: Partial Thromboplastin Time 28 Seconds (21-31); Prothrombin Time 10.4 Seconds (9.0-12.0)
--- NOTE | 2024-04-04 22:30 | Emergency Department Note ---
Impression & Plan Stroke-like symptoms, Chest pain, Left arm weakness ED Provider Note NAME: [facility] AGE: 63 SEX: M : 1960 ARRIVES VIA: Walk-In INFORMANT: Patient, ED PROVIDER(S): Brian Clay DO CHIEF COMPLAINT: Chest pain HPI: The patient is a 63-year-old male who presented to the emergency department for an evaluation of left-sided chest pain. He states he noticed symptoms earlier today that started approximately 7 PM. He also notices he is having difficulty ambulating and difficulty using his left leg and his left arm. He also complains of a headache. He has no history of stroke but has a history of hypertension. He states he has been compliant with his outpatient medications. He denies having any trauma or neck pain. ROS: See above HPI for pertinent positives & negatives. A total of 10 systems reviewed and were otherwise negative. PAST MEDICAL HISTORY: See Below PAST SURGICAL HISTORY: See Below FAMILY HISTORY: See Below SOCIAL HISTORY: See Below HOME MEDICATIONS: See Below ALLERGIES: See Below VITALS: See Below PHYSICAL EXAMINATION: GENERAL: Patient is awake alert in no acute distress patient is resting comfortably and showing no signs of anxiety EYES: The conjunctivae are clear. The pupils are round and reactive. EARS, NOSE, MOUTH AND THROAT: The nose is without any evidence of any deformity. NECK: The neck is nontender and supple. RESPIRATORY: Normal respiratory effort is noted there is no evidence of wheezing rhonchi or rales CARDIOVASCULAR: Regular rate and rhythm noted there no murmurs rubs or gallops normal S1 normal S2. GASTROINTESTINAL: The abdomen is soft. Abdomen is nontender. MUSCULOSKELETAL/EXTREMITIES: There is no evidence of gross deformity full range of motion is noted in the hips and shoulders. SKIN: There is no obvious evidence of any rash. There are no petechiae, pallor or cyanosis noted. NEUROLOGIC: Patient is awake alert and oriented x3. Vocational Trainer strength was diminished in the left hand compared to the right. There was a drift in the left upper extremity. The patient is able to hold the left leg off of the bed for less than 5 seconds. Patient is able to hold the right leg off the bed for greater than 5 seconds. MEDICAL DECISION MAKING: The patient is a 63-year-old male who presented to the emergency department for an evaluation of chest pain. The patient was also describing left upper extremity dysesthesia as well as weakness. The patient on physical exam did have a drift of his left upper extremity. Given his chest pain and his acute symptoms he was made a stroke alert. He also had a CT dissection study to ensure that his symptoms were not from an aortic dissection. I discussed the patient's laboratory and radiographic studies with him. His condition was improving on my evaluation. The patient was in sinus rhythm in the emergency department. The patient was evaluated by the telestroke neurologist. He was offered TNK by the teleroke neurologist but ultimately did not wish to have TNK. The patient was felt to be a good candidate for inpatient management and further workup. [facility] have agreed to evaluate the patient. Triage Nursing notes reviewed. Prior medical records reviewed Vital Signs: reviewed and remarkable for elevated blood pressure. Differential diagnosis: Cardiac ischemia, aortic dissection, pulmonary embolism, pneumothorax, pneumonia, pericarditis, myocarditis, esophageal rupture, GERD, cholecystitis, pancreatitis, musculoskeletal, as well as other pathologies. ER treatment provided: See below Diagnostics interpreted by me: ECG: EKG was obtained in the emergency department. My interpretation is normal sinus rhythm at 89 bpm. There is no ectopy. Poor R wave progression with T wave flattening was noted. This was compared to a tracing from September 19, 2023. No changes were noted. Cardiac Monitoring: An order was placed for continuous cardiac monitoring. The monitor shows a rate of 79 bpm with sinus rhythm. Laboratory studies: As stated above and show below. Imaging studies: See below. Radiographic imaging was reviewed by myself Consultation(s): I discussed this case with Dr. Parnell who is on for the [facility] telestroke neurology group. He did evaluate the patient. The patient declined TNK at this time. I discussed this case with Dr. Ornelas who is on-call for the [facility] group ED COURSE: Procedures: none Critical Care: I have personally spent greater than 45 minutes of critical care time in the direct management of this patient. This includes bedside care, interpretation of diagnostic studies, and testing, discussion with consultants, patient, and family members, and other required patient management activities. This 45 minutes is in excess of all separately billable procedures. Past Med/Surg History Problem List (Updated 04/04/24 @ 23:41 by Brian Clay DO) Left arm weakness (Acute) Chest pain (Acute) Stroke-like symptoms (Acute) Complicated bronchitis Morbid obesity Afib Severe sepsis HIMA (acute kidney injury) (Acute) Leukocytosis (Acute) Shortness of breath (Acute) Acute hypokalemia (Acute) Acute exacerbation of chronic obstructive pulmonary disease (Acute) History of COVID-19 Tested positive 12/02/20 at [facility]. Had body aches; symptoms have resolved. Sinusitis Dyspnea Sweating increase Fatigue Encounter for pre-operative examination Body fluid retention (Chronic 02/23/13) Bronchitis (Acute) Atelectasis Hematuria (Acute) Renal calculus, right Arthritis (Chronic) HTN (hypertension) (Chronic) Medical History Hepatic steatosis Aortic root dilation 4.7cm. Ascending aorta also enlarged at 4.0 cm. Follows with [facility] cardio. Osteoarthritis Kidney stone Hypothyroidism Migraine Hyperlipidemia Surgical History Status post lobectomy of lung R middle lobe, with post op pleuropericarditis and cardiac tamponade requiring transfer to [facility] for urgent pericardiocentesis. History of colonoscopy [place] teeth removed History of bronchoscopy Family History Other Cancer Diabetes No family history of adverse response to anesthesia Social History Smoking Status: Never smoker Second Hand Exposure: No; Do You Dip or Chew Tobacco: No; Hx Alcohol Use: Yes Alcohol type: beer Hx Substance Use: No Preferred Language: Ghanaian Communication Ability: Effective Surveyor Required: No Beliefs That Will Affect Care: None Current Living Situation: Spouse Feels Safe at Home: Yes Assistive Devices: Cane Allergies Allergies Allergy/AdvReac Type Severity Reaction Status Date / Time Beta-Blockers AdvReac Intermediate bradycardia Verified 04/05/24 00:31 (Beta-Adrenergic Bloc Home Meds Home Medications Medication Instructions Recorded Confirmed aspirin 81 mg tablet,delayed 81 mg PO QAM 05/08/19 04/05/24 release atorvastatin 40 mg tablet 40 mg PO QAM 05/08/19 04/05/24 cetirizine 10 mg tablet (Zyrtec) 10 mg PO QAM 05/08/19 04/05/24 furosemide 40 mg tablet 60 mg PO QAM 05/08/19 04/05/24 omega-3 fatty acids 500 mg capsule 500 mg PO QAM 05/08/19 04/05/24 spironolactone 25 mg tablet 25 mg PO QAM 05/08/19 04/05/24 vitamin E 268 mg (400 unit) capsule 400 unit PO QAM 05/08/19 04/05/24 lisinopril 40 mg tablet 40 mg PO QAM 10/26/20 04/05/24 meclizine 25 mg tablet 25 mg PO TID PRN Dizziness 03/23/21 04/05/24 sumatriptan succinate 50 mg tablet 50 mg PO DAILY PRN Migraine 03/23/21 04/05/24 (Imitrex) Headache amitriptyline 25 mg tablet 25 mg PO HS 06/21/21 04/05/24 levothyroxine 125 mcg tablet 125 mcg PO DAILYBB 01/11/23 04/05/24 pantoprazole 40 mg tablet,delayed 40 mg PO QAM 01/11/23 04/05/24 release potassium chloride 10 mEq 10 meq PO DAILY 01/11/23 04/05/24 tablet,extended release tizanidine 4 mg tablet 4 mg PO HS Muscle Spasm 01/11/23 04/05/24 azelastine 137 mcg (0.1 %) nasal 2 spray intranasal BID 05/22/23 04/05/24 spray aerosol albuterol sulfate 2.5 mg/3 mL 2.5 mg continuous nebulization Q4 09/20/23 04/05/24 (0.083 %) solution for nebulization PRN Shortness Of Breath Or Wheezing albuterol sulfate 90 mcg/actuation 2 puff inhalation QID PRN 09/20/23 04/05/24 aerosol inhaler Shortness Of Breath Or Wheezing ipratropium 0.5 mg-albuterol 3 mg 3 ml inhalation QID PRN Shortness 09/20/23 04/05/24 (2.5 mg base)/3 mL nebulization Of Breath Or Wheezing soln multivitamin with minerals 1 tab PO DAILY 09/20/23 04/05/24 (Multiple Vitamin-Minerals tablet) cholecalciferol (vitamin D3) 50 50 mcg PO DAILY 04/05/24 04/05/24 mcg (2,000 unit) tablet (Vitamin D3) mometasone-formoterol HFA 100 1 puff inhalation DIRECTED PRN 04/05/24 04/05/24 mcg-5 mcg/actuation aerosol inhaler .. tamsulosin 0.4 mg capsule 0.4 mg PO QAM 04/05/24 04/05/24 Previous Rx's Medication Instructions Recorded Flutter Valve #1 ea 08/02/21 fluticasone propionate 50 2 spray ANNE DAILY #16 grams 09/21/23 mcg/actuation nasal spray,suspension Results & Data (ED) Vital Signs Vital Signs - 24 hr 04/04/24 20:28 04/04/24 21:04 04/04/24 21:05 Temperature 36.8 C Temperature Source Temporal Artery Scan Pulse Rate 86 87 Pulse Rate from SpO2 Sensor 87 Pulse Rhythm Regular Pulse Strength Normal Respiratory Rate 20 23 Respiratory Effort / Characteristics Non-Labored Spontaneous Respiratory Depth Normal Respiratory Pattern Regular Blood Pressure 130/74 149/85 H Blood Pressure Mean 92 105 Blood Pressure Position Sitting Pulse Oximetry 94 95 Oxygen Delivery Method Room Air Sepsis Recent Fever Within 48 Hours No Sepsis New/Unexplained Change in Mental Status N/A Sepsis Action Taken by Nursing No Action Required 04/04/24 21:09 04/04/24 21:10 04/04/24 21:11 Temperature Temperature Source Pulse Rate 84 83 Pulse Rate from SpO2 Sensor 84 Pulse Rhythm Pulse Strength Respiratory Rate Respiratory Effort / Characteristics Respiratory Depth Respiratory Pattern Blood Pressure Blood Pressure Mean Blood Pressure Position Pulse Oximetry 93 Oxygen Delivery Method Room Air Sepsis Recent Fever Within 48 Hours Sepsis New/Unexplained Change in Mental Status Sepsis Action Taken by Nursing 04/04/24 21:20 04/04/24 21:30 04/04/24 21:40 Temperature Temperature Source Pulse Rate 85 84 86 Pulse Rate from SpO2 Sensor 85 85 85 Pulse Rhythm Pulse Strength Respiratory Rate 23 17 22 Respiratory Effort / Characteristics Respiratory Depth Respiratory Pattern Blood Pressure Blood Pressure Mean Blood Pressure Position Pulse Oximetry 94 93 93 Oxygen Delivery Method Sepsis Recent Fever Within 48 Hours Sepsis New/Unexplained Change in Mental Status Sepsis Action Taken by Nursing 04/04/24 21:50 04/04/24 22:00 04/04/24 22:00 Temperature Temperature Source Pulse Rate 84 85 Pulse Rate from SpO2 Sensor 84 82 Pulse Rhythm Pulse Strength Respiratory Rate 21 22 Respiratory Effort / Characteristics Respiratory Depth Respiratory Pattern Blood Pressure 132/77 Blood Pressure Mean 97 Blood Pressure Position Pulse Oximetry 93 97 Oxygen Delivery Method Sepsis Recent Fever Within 48 Hours Sepsis New/Unexplained Change in Mental Status Sepsis Action Taken by Nursing 04/04/24 22:10 04/04/24 22:20 04/04/24 22:42 Temperature Temperature Source Pulse Rate 86 82 82 Pulse Rate from SpO2 Sensor 85 81 Pulse Rhythm Pulse Strength Respiratory Rate 18 22 15 Respiratory Effort / Characteristics Respiratory Depth Respiratory Pattern Blood Pressure Blood Pressure Mean Blood Pressure Position Pulse Oximetry 94 95 Oxygen Delivery Method Sepsis Recent Fever Within 48 Hours Sepsis New/Unexplained Change in Mental Status Sepsis Action Taken by Nursing 04/04/24 22:50 04/04/24 23:00 04/04/24 23:10 Temperature Temperature Source Pulse Rate 80 78 80 Pulse Rate from SpO2 Sensor 80 80 81 Pulse Rhythm Pulse Strength Respiratory Rate 19 25 H Respiratory Effort / Characteristics Respiratory Depth Respiratory Pattern Blood Pressure 128/80 Blood Pressure Mean 96 Blood Pressure Position Pulse Oximetry 93 93 94 Oxygen Delivery Method Sepsis Recent Fever Within 48 Hours Sepsis New/Unexplained Change in Mental Status Sepsis Action Taken by Nursing 04/04/24 23:20 04/04/24 23:30 04/04/24 23:40 Temperature Temperature Source Pulse Rate 80 79 79 Pulse Rate from SpO2 Sensor 80 79 79 Pulse Rhythm Pulse Strength Respiratory Rate 25 H 26 H 21 Respiratory Effort / Characteristics Respiratory Depth Respiratory Pattern Blood Pressure Blood Pressure Mean Blood Pressure Position Pulse Oximetry 95 95 95 Oxygen Delivery Method Sepsis Recent Fever Within 48 Hours Sepsis New/Unexplained Change in Mental Status Sepsis Action Taken by Nursing 04/04/24 23:50 04/05/24 00:00 04/05/24 00:01 Temperature Temperature Source Pulse Rate 80 77 76 Pulse Rate from SpO2 Sensor 80 77 74 Pulse Rhythm Pulse Strength Respiratory Rate 20 21 25 H Respiratory Effort / Characteristics Respiratory Depth Respiratory Pattern Blood Pressure 126/81 Blood Pressure Mean 96 Blood Pressure Position Pulse Oximetry 95 95 95 Oxygen Delivery Method Sepsis Recent Fever Within 48 Hours Sepsis New/Unexplained Change in Mental Status Sepsis Action Taken by Nursing 04/05/24 00:10 04/05/24 00:20 04/05/24 00:30 Temperature Temperature Source Pulse Rate 79 82 79 Pulse Rate from SpO2 Sensor 80 81 79 Pulse Rhythm Pulse Strength Respiratory Rate 20 24 24 Respiratory Effort / Characteristics Respiratory Depth Respiratory Pattern Blood Pressure Blood Pressure Mean Blood Pressure Position Pulse Oximetry 95 95 95 Oxygen Delivery Method Sepsis Recent Fever Within 48 Hours Sepsis New/Unexplained Change in Mental Status Sepsis Action Taken by Nursing 04/05/24 00:40 04/05/24 00:50 04/05/24 01:00 Temperature Temperature Source Pulse Rate 83 81 79 Pulse Rate from SpO2 Sensor 83 81 79 Pulse Rhythm Pulse Strength Respiratory Rate 21 22 20 Respiratory Effort / Characteristics Respiratory Depth Respiratory Pattern Blood Pressure Blood Pressure Mean Blood Pressure Position Pulse Oximetry 94 95 96 Oxygen Delivery Method Sepsis Recent Fever Within 48 Hours Sepsis New/Unexplained Change in Mental Status Sepsis Action Taken by Nursing 04/05/24 01:01 04/05/24 01:10 04/05/24 01:20 Temperature Temperature Source Pulse Rate 81 79 82 Pulse Rate from SpO2 Sensor 82 79 82 Pulse Rhythm Pulse Strength Respiratory Rate 20 23 25 H Respiratory Effort / Characteristics Respiratory Depth Respiratory Pattern Blood Pressure 164/84 H Blood Pressure Mean 110 Blood Pressure Position Pulse Oximetry 94 94 95 Oxygen Delivery Method Sepsis Recent Fever Within 48 Hours Sepsis New/Unexplained Change in Mental Status Sepsis Action Taken by Nursing 04/05/24 01:30 Temperature Temperature Source Pulse Rate 79 Pulse Rate from SpO2 Sensor 77 Pulse Rhythm Pulse Strength Respiratory Rate 21 Respiratory Effort / Characteristics Respiratory Depth Respiratory Pattern Blood Pressure Blood Pressure Mean Blood Pressure Position Pulse Oximetry 96 Oxygen Delivery Method Sepsis Recent Fever Within 48 Hours Sepsis New/Unexplained Change in Mental Status Sepsis Action Taken by Half-Way Medications Current Medication List: was personally reviewed by me Laboratory Data Attestation: I reviewed the patient's lab results. 04/04/24 20:38 04/04/24 20:38 Lab Results 04/04/24 04/04/24 04/05/24 Range/Units 20:38 22:27 01:04 WBC 9.48 (4.8-10.8) K/ul RBC 4.49 L (4.70-6.10) M/uL Hgb 13.7 L (14.0-18.0) g/dl Hct 39.4 L (42.0-52.0) % MCV 87.8 (80.0-100.0) fL MCH 30.5 (25.0-34.0) pg MCHC 34.8 (32.0-36.0) g/dL RDW Std Deviation 42.1 (36.4-46.3) fL RDW Coeff of Bola 13.2 (11.5-14.5) % Plt Count 192 (130-400) K/uL MPV 10.7 (9.4-12.4) fL Immature Gran % (Auto) 0.3 % Neut % (Auto) 51.3 % Lymph % (Auto) 36.2 % Hughes % (Auto) 8.0 % Eos % (Auto) 3.1 % Baso % (Auto) 1.1 % Neut # (Auto) 4.87 (1.40-6.50) K/uL Lymph # (Auto) 3.43 H (1.20-3.40) K/uL Hughes # (Auto) 0.76 H (0.11-0.59) K/uL Eos # (Auto) 0.29 (0.00-0.50) K/uL Baso # (Auto) 0.10 (0.00-0.20) K/uL Immature Gran # (Auto) 0.03 (0.01-0.20) K/uL PT 10.4 (9.0-12.0) Seconds INR 1.0 (0.9-1.1) APTT 28 (21-31) Seconds PTT Ratio 1.0 Sodium 138 (136-145) mmol/L Potassium 3.9 (3.5-5.1) mmol/L Chloride 104 (98-107) mmol/L Carbon Dioxide 25 (21-32) mmol/L Anion Gap 9 (3-11) BUN 13 (6-23) mg/dl Creatinine 1.06 (0.6-1.4) mg/dl Est Cr Clr Drug Dosing 97.2 ml/min Est GFR ( Amer) 87.4 ml/min Est GFR (Non-Af Amer) 75.4 ml/min BUN/Creatinine Ratio 12.3 (10-20) Glucose 160 H (70-99(Fasting)) mg/dl POC Glucose 184 H (70-99) mg/dl Calcium 9.1 (8.6-10.3) mg/dl Magnesium 2.0 (1.7-2.4) mg/dl Total Bilirubin 0.5 (0.2-1.0) mg/dl AST 35 (13-39) U/L ALT 51 (7-52) U/L Alkaline Phosphatase 71 (34-104) U/L Troponin I High Sens 8.3 7.8 (0-20) pg/ml Total Protein 6.8 (6.0-8.3) gm/dl Albumin 4.2 (3.4-5.0) gm/dl Globulin 2.6 (2.5-4.0) gm/dl Albumin/Globulin Ratio 1.6 (0.9-2) Administered Medications Potassium Chloride/Sodium Chloride (Normal Saline W/20 Meq Kcl) 20 meq in 1,000 mls @ 75 mls/hr IV .[id number] ONE; Protocol Stop: 04/05/24 13:32 Last Admin: 04/05/24 00:29 Dose: 75 mls/hr Documented By: YUSRA Discontinued Medications Ioversol (Optiray 320 125ml) 117 ml IV ONCE ONE Stop: 04/04/24 22:32 Last Admin: 04/04/24 22:31 Dose: 117 ml Documented By: LAN Imaging Data Attestation: I personally reviewed and interpreted this imaging study as follows: My Impression: CT of the brain was obtained in the emergency department. My interpretation is no intracranial hemorrhage or mass effect, final report below. Radiologist's Impression: Chest CTA 04/04/24 22:24 Exam(s): CTA CHEST W/WO Contrast IV Amt: 117ml optiray 320 EXAM: CT Angiography Chest Without and With Intravenous Contrast CLINICAL HISTORY: Reason for exam: CP, stroke like SS. TECHNIQUE: Axial computed tomographic angiography images of the chest without and with intravenous contrast. CTDI is 66.79 mGy and DLP is 3185.42 mGy-cm. Automated exposure control was utilized for the study. A dose lowering technique was utilized adhering to the principles of ALARA. MIP reconstructed images were created and reviewed. CONTRAST: Patient received 117ml optiray 320 of IV contrast COMPARISON: No relevant prior studies available. FINDINGS: Pulmonary arteries: Unremarkable. No pulmonary embolism. Aorta: Mildly aneurysmal ascending thoracic aorta measuring 4 cm. No acute aortic syndrome. Lungs: Unremarkable. Pleural space: Unremarkable. Heart: Unremarkable. Bones/joints: No acute fracture. Soft tissues: Unremarkable. Lymph nodes: Unremarkable. IMPRESSION: Mildly aneurysmal ascending thoracic aorta measuring 4 cm. No acute aortic syndrome. Electronically signed by: Jude Arvizu MD 04/04/24 23:[address] 04/04/24 22:24 CR Exam(s): CT HEAD Without Contrast EXAM: CT Head Without Intravenous Contrast CLINICAL HISTORY: Reason for exam: neuro deficit, acute stroke suspected. TECHNIQUE: Axial computed tomography images of the head/brain without intravenous contrast. CTDI is 66.79 mGy and DLP is 3185.42 mGy-cm. Automated exposure control was utilized for the study. A dose lowering technique was utilized adhering to the principles of ALARA. COMPARISON: No relevant prior studies available. FINDINGS: Brain: No hemorrhage, extra-axial fluid collection, mass effect, or edema. Atrophy and chronic microvascular ischemic changes. Ventricles: Unremarkable. Bones/joints: Unremarkable. No fracture. Soft tissues: Unremarkable. Sinuses: No acute sinusitis. Mastoid air cells: Unremarkable as visualized. IMPRESSION: 1. No acute intracranial abnormality. Communications: Call Doctor Stroke Electronically signed by: Jude Arvizu MD 04/04/24 22:45 PM Head CTA 04/04/24 22:24 CR Exam(s): CTA HEAD With Contrast EXAM: CT Angiography Head With Intravenous Contrast CLINICAL HISTORY: Reason for exam: neuro deficit, acute stroke suspected. TECHNIQUE: Axial computed tomographic angiography images of the head with intravenous contrast. CTDI is 66.79 mGy and DLP is 3185.42 mGy-cm. Automated exposure control was utilized for the study. A dose lowering technique was utilized adhering to the principles of ALARA. MIP reconstructed images were created and reviewed. COMPARISON: No relevant prior studies available. FINDINGS: Right internal carotid artery: No acute findings. Intracranial segment is patent with no significant stenosis. No aneurysm. Right anterior cerebral artery: Unremarkable. No occlusion or significant stenosis. No aneurysm. Right middle cerebral artery: Unremarkable. No occlusion or significant stenosis. No aneurysm. Right posterior cerebral artery: Unremarkable. No occlusion or significant stenosis. No aneurysm. Right vertebral artery: Unremarkable as visualized. Left internal carotid artery: No acute findings. Intracranial segment is patent with no significant stenosis. No aneurysm. Left anterior cerebral artery: Unremarkable. No occlusion or significant stenosis. No aneurysm. Left middle cerebral artery: Unremarkable. No occlusion or significant stenosis. No aneurysm. Left posterior cerebral artery: origin of the PSYCHOLOGICAL SCIENCE PROFESSOR on the left. No occlusion or significant stenosis. No aneurysm. Left vertebral artery: Unremarkable as visualized. Basilar artery: Unremarkable. No occlusion or significant stenosis. No aneurysm. IMPRESSION: No acute findings in the arteries of the head/brain. Communications: Call Doctor Stroke Electronically signed by: Jude Arvizu MD 04/04/24 23:54 PM Neck CTA 04/04/24 22:24 CR Exam(s): CTA NECK With Contrast IV Amt: 117ml optiray 320 EXAM: CT Angiography Neck With Intravenous Contrast CLINICAL HISTORY: Reason for exam: neuro deficit, acute stroke suspected. TECHNIQUE: Routine carotid CT angiography protocol was performed with intravenous contrast. NASCET criteria using the distal ICAs for comparison were used for evaluation of stenoses. CTDI is 66.79 mGy and DLP is 3185.42 mGy-cm. Automated exposure control was utilized for the study. A dose lowering technique was utilized adhering to the principles of ALARA. MIP reconstructed images were created and reviewed. CONTRAST: Patient received 117ml optiray 320 of IV contrast COMPARISON: None. FINDINGS: VASCULATURE: Right common carotid artery: Unremarkable. No occlusion or significant stenosis. No dissection. Right internal carotid artery: Unremarkable. Extracranial segment is patent with no occlusion or significant stenosis. No dissection. Right vertebral artery: Unremarkable. No occlusion or significant stenosis. No dissection. Left common carotid artery: Unremarkable. No occlusion or significant stenosis. No dissection. Left internal carotid artery: Unremarkable. Extracranial segment is patent with no occlusion or significant stenosis. No dissection. Left vertebral artery: Unremarkable. No occlusion or significant stenosis. No dissection. NECK: Bones/joints: Unremarkable. No acute fracture. Soft tissues: Unremarkable. Lung apices: Clear. CAROTID STENOSIS REFERENCE USING NASCET CRITERIA: % ICA stenosis = (1 - narrowest ICA diameter/diameter of distal cervical ICA) x 100. Mild - <50% stenosis. Moderate - 50-69% stenosis. Severe - 70-94% stenosis. Near occlusion - 95-99% stenosis. Occluded - 100% stenosis. IMPRESSION: Negative CTA neck. Communications: Call Doctor Stroke Electronically signed by: Jude Arvizu MD 04/04/24 23:44 PM Discharge Plan Visit Data Chief Complaint: Chest Pain Stated Complaint: LT FLANK/ARM PAIN, CHEST PAIN, DIZZY ED Provider: Brian Clay Discharge Problem: Stroke-like symptoms, Chest pain, Left arm weakness Patient Disposition: Being Evaluated by Hospitalist Discharge Instructions Interventions: ED Discharge Assessment Last Done: 04/05/24 02:00 Forms Stand Alone Forms: the Shelf Prescriptions Prescriptions: No Action (DME) Flutter Valve Device See Rx Instructions .Route Qty: 1 0RF Rx Instructions: As directed furosemide 40 mg tablet 60 mg PO QAM Rx Instructions: 1 & 1/2 tablet dose atorvastatin 40 mg tablet 40 mg PO QAM cetirizine [Zyrtec] 10 mg Tablet 10 mg PO QAM aspirin 81 mg Tablet,Delayed Release (Dr/Ec) 81 mg PO QAM spironolactone 25 mg tablet 25 mg PO QAM vitamin E 400 unit Capsule 400 unit PO QAM omega-3 fatty acids 500 mg Capsule 500 mg PO QAM lisinopril 40 mg tablet 40 mg PO QAM amitriptyline 25 mg tablet 25 mg PO HS ipratropium-albuterol 0.5 mg-3 mg(2.5 mg base)/3 mL Solution For Nebulization 3 ml INHALATION QID PRN (Reason: Shortness Of Breath Or Wheezing) Rx Instructions: morning,noon,evening and before bedtime albuterol sulfate 2.5 mg /3 mL (0.083 %) solution for nebulization 2.5 mg continuous nebulization Q4 PRN (Reason: Shortness Of Breath Or Wheezing) Multiple Vitamin-Minerals Tablet 1 tab PO DAILY albuterol sulfate 90 mcg/actuation Hfa Aerosol Inhaler 2 puff INHALATION QID PRN (Reason: Shortness Of Breath Or Wheezing) fluticasone propionate 50 mcg/actuation [place],Suspension 2 spray ANNE DAILY Qty: 16 0RF Rx Instructions: Take while nasal congestion and cough persists sumatriptan succinate [Imitrex] 50 mg Tablet 50 mg PO DAILY MDD 4 tabs PRN (Reason: Migraine Headache) Rx Instructions: may repeat after two hours,if needed. meclizine 25 mg Tablet 25 mg PO TID PRN (Reason: Dizziness) levothyroxine 125 mcg tablet 125 mcg PO DAILYBB tizanidine 4 mg tablet 4 mg PO HS pantoprazole 40 mg tablet,delayed release (DR/EC) 40 mg PO QAM potassium chloride 10 mEq tablet extended release 10 meq PO DAILY azelastine 137 mcg (0.1 %) Aerosol,[place] 2 spray INTRANASAL BID Rx Instructions: administer into each nostril tamsulosin 0.4 mg capsule 0.4 mg PO QAM cholecalciferol (vitamin D3) [Vitamin D3] 50 mcg (2,000 unit) Tablet 50 mcg PO DAILY mometasone-formoterol 100-5 mcg/actuation Hfa Aerosol Inhaler 1 puff INHALATION DIRECTED PRN (Reason: ..) Referrals Referrals: Farooq Rodríguez DO [Primary Care Provider] - Discharge Problem: Chest pain Qualifiers: Chest pain type: unspecified Qualified Code(s): R07.9 - Chest pain, unspecified
[2024-04-04] MEDS: OPTIRAY 320 125ml IV ONE (22:31)
--- NOTE | 2024-04-04 22:47 | CT Scan Report ---
Exam(s): CT HEAD Without Contrast EXAM: CT Head Without Intravenous Contrast CLINICAL HISTORY: Reason for exam: neuro deficit, acute stroke suspected. TECHNIQUE: Axial computed tomography images of the head/brain without intravenous contrast. CTDI is 66.79 mGy and DLP is 3185.42 mGy-cm. Automated exposure control was utilized for the study. A dose lowering technique was utilized adhering to the principles of ALARA. COMPARISON: No relevant prior studies available. FINDINGS: Brain: No hemorrhage, extra-axial fluid collection, mass effect, or edema. Atrophy and chronic microvascular ischemic changes. Ventricles: Unremarkable. Bones/joints: Unremarkable. No fracture. Soft tissues: Unremarkable. Sinuses: No acute sinusitis. Mastoid air cells: Unremarkable as visualized. IMPRESSION: 1. No acute intracranial abnormality. Communications: Call Doctor Stroke Electronically signed by: Jude Arvizu MD 04/04/24 22:45 PM
--- NOTE | 2024-04-04 23:45 | CT Scan Report ---
Exam(s): CTA NECK With Contrast IV Amt: 117ml optiray 320 EXAM: CT Angiography Neck With Intravenous Contrast CLINICAL HISTORY: Reason for exam: neuro deficit, acute stroke suspected. TECHNIQUE: Routine carotid CT angiography protocol was performed with intravenous contrast. NASCET criteria using the distal ICAs for comparison were used for evaluation of stenoses. CTDI is 66.79 mGy and DLP is 3185.42 mGy-cm. Automated exposure control was utilized for the study. A dose lowering technique was utilized adhering to the principles of ALARA. MIP reconstructed images were created and reviewed. CONTRAST: Patient received 117ml optiray 320 of IV contrast COMPARISON: None. FINDINGS: VASCULATURE: Right common carotid artery: Unremarkable. No occlusion or significant stenosis. No dissection. Right internal carotid artery: Unremarkable. Extracranial segment is patent with no occlusion or significant stenosis. No dissection. Right vertebral artery: Unremarkable. No occlusion or significant stenosis. No dissection. Left common carotid artery: Unremarkable. No occlusion or significant stenosis. No dissection. Left internal carotid artery: Unremarkable. Extracranial segment is patent with no occlusion or significant stenosis. No dissection. Left vertebral artery: Unremarkable. No occlusion or significant stenosis. No dissection. NECK: Bones/joints: Unremarkable. No acute fracture. Soft tissues: Unremarkable. Lung apices: Clear. CAROTID STENOSIS REFERENCE USING NASCET CRITERIA: % ICA stenosis = (1 - narrowest ICA diameter/diameter of distal cervical ICA) x 100. Mild - <50% stenosis. Moderate - 50-69% stenosis. Severe - 70-94% stenosis. Near occlusion - 95-99% stenosis. Occluded - 100% stenosis. IMPRESSION: Negative CTA neck. Communications: Call Doctor Stroke Electronically signed by: Jude Arvizu MD 04/04/24 23:44 PM
--- NOTE | 2024-04-04 23:51 | CT Scan Report ---
Exam(s): CTA CHEST W/WO Contrast IV Amt: 117ml optiray 320 EXAM: CT Angiography Chest Without and With Intravenous Contrast CLINICAL HISTORY: Reason for exam: CP, stroke like SS. TECHNIQUE: Axial computed tomographic angiography images of the chest without and with intravenous contrast. CTDI is 66.79 mGy and DLP is 3185.42 mGy-cm. Automated exposure control was utilized for the study. A dose lowering technique was utilized adhering to the principles of ALARA. MIP reconstructed images were created and reviewed. CONTRAST: Patient received 117ml optiray 320 of IV contrast COMPARISON: No relevant prior studies available. FINDINGS: Pulmonary arteries: Unremarkable. No pulmonary embolism. Aorta: Mildly aneurysmal ascending thoracic aorta measuring 4 cm. No acute aortic syndrome. Lungs: Unremarkable. Pleural space: Unremarkable. Heart: Unremarkable. Bones/joints: No acute fracture. Soft tissues: Unremarkable. Lymph nodes: Unremarkable. IMPRESSION: Mildly aneurysmal ascending thoracic aorta measuring 4 cm. No acute aortic syndrome. Electronically signed by: Jued Arvizu MD 04/04/24 23:50 PM
--- NOTE | 2024-04-04 23:55 | CT Scan Report ---
Exam(s): CTA HEAD With Contrast EXAM: CT Angiography Head With Intravenous Contrast CLINICAL HISTORY: Reason for exam: neuro deficit, acute stroke suspected. TECHNIQUE: Axial computed tomographic angiography images of the head with intravenous contrast. CTDI is 66.79 mGy and DLP is 3185.42 mGy-cm. Automated exposure control was utilized for the study. A dose lowering technique was utilized adhering to the principles of ALARA. MIP reconstructed images were created and reviewed. COMPARISON: No relevant prior studies available. FINDINGS: Right internal carotid artery: No acute findings. Intracranial segment is patent with no significant stenosis. No aneurysm. Right anterior cerebral artery: Unremarkable. No occlusion or significant stenosis. No aneurysm. Right middle cerebral artery: Unremarkable. No occlusion or significant stenosis. No aneurysm. Right posterior cerebral artery: Unremarkable. No occlusion or significant stenosis. No aneurysm. Right vertebral artery: Unremarkable as visualized. Left internal carotid artery: No acute findings. Intracranial segment is patent with no significant stenosis. No aneurysm. Left anterior cerebral artery: Unremarkable. No occlusion or significant stenosis. No aneurysm. Left middle cerebral artery: Unremarkable. No occlusion or significant stenosis. No aneurysm. Left posterior cerebral artery: origin of the GRADING CLERK on the left. No occlusion or significant stenosis. No aneurysm. Left vertebral artery: Unremarkable as visualized. Basilar artery: Unremarkable. No occlusion or significant stenosis. No aneurysm. IMPRESSION: No acute findings in the arteries of the head/brain. Communications: Call Doctor Stroke Electronically signed by: Jude Arvizu MD 04/04/24 23:54 PM
--- NOTE | 2024-04-05 00:10 | History & Physical Report ---
Date of Service April 05, 2024 Assessment & Plan (1) Chest pain: Plan: With left upper extremity/LLE radiation Somewhat atypical given transient LUE weakness/numbness Transient LUE weakness numbness TIA versus complicated migraine given concomitant headache and photophobia complaints chronic diastolic heart failure, patient euvolemic hx PSVT, past history of cardiac tamponade PVD (aortic root dilatation/ascending aortic dilatation as per records) hypertension, stable hyperlipidemia on statin Rx hx pulmonary nodule status post surgery Bronchial asthma, chronic cough symptoms. hypothyroidism, euthyroid as of recent outpatient TSH Hyperglycemia likely prediabetes, hemoglobin A1c of 6.2 last year Chronic back pain status post stimulator Chronic anemia, hemoglobin at baseline Mood disorder, stable OBS PCU Follow troponin TTE Neurochecks Aspirin for stroke prevention MRI brain for additional stroke workup Further management contingent on workup results DVT prophylaxis. Lovenox subcu Full code Text document was generated using [employer] voice recognition software. It may contain grammatical or spelling errors. Kindly contact undersigned for clarification of any documentation item in question. History of Present Illness Chief Complaint: Chest pain, headache, transient left upper extremity weakness Primary Care Provider: Farooq Rodríguez, History obtained from patient, family, and records. Medical history significant for chronic diastolic heart failure (EF 60%, TTE 2022), PSVT, history of cardiac tamponade, PVD, hypertension, hyperlipidemia, bronchial asthma/bronchiectasis, pulmonary nodule status post surgery, GERD, hepatic steatosis, hypothyroidism, chronic back pain status post spinal cord stimulator, chronic anemia (baseline hemoglobin of 13), mood disorder. Last confinement September 2023 for sepsis secondary to complicated bronchitis. Patient was watching television around dinnertime when he experienced sudden onset achy left-sided chest pain going to the left arm and left leg associated with achy headache, photophobia, left-sided weakness symptoms. Denies neck pain, abdominal pain, SOB. Usual cough symptoms productive of clear sputum. Patient compliant with home medications. No prior episodes. Different from migraine attack. Stroke alert called upon arrival at [place] [facility] [place] thrombolytic therapy given resolved left upper extremity weakness symptoms. Patient currently comfortable. 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 Allergies Allergy/AdvReac Type Severity Reaction Status Date / Time Beta-Blockers AdvReac Intermediate bradycardia Verified 04/05/24 00:31 (Beta-Adrenergic Bloc Home Medications Medication Instructions Recorded Confirmed Type aspirin 81 mg tablet,delayed 81 mg PO QAM 05/08/19 04/05/24 History release atorvastatin 40 mg tablet 40 mg PO QAM 05/08/19 04/05/24 History cetirizine 10 mg tablet (Zyrtec) 10 mg PO QAM 05/08/19 04/05/24 History furosemide 40 mg tablet 60 mg PO QAM 05/08/19 04/05/24 History omega-3 fatty acids 500 mg capsule 500 mg PO QAM 05/08/19 04/05/24 History spironolactone 25 mg tablet 25 mg PO QAM 05/08/19 04/05/24 History vitamin E 268 mg (400 unit) capsule 400 unit PO QAM 05/08/19 04/05/24 History lisinopril 40 mg tablet 40 mg PO QAM 10/26/20 04/05/24 History meclizine 25 mg tablet 25 mg PO TID PRN Dizziness 03/23/21 04/05/24 History sumatriptan succinate 50 mg tablet 50 mg PO DAILY PRN Migraine 03/23/21 04/05/24 History (Imitrex) Headache amitriptyline 25 mg tablet 25 mg PO HS 06/21/21 04/05/24 History Flutter Valve #1 ea 08/02/21 09/20/23 Rx levothyroxine 125 mcg tablet 125 mcg PO DAILYBB 01/11/23 04/05/24 History pantoprazole 40 mg tablet,delayed 40 mg PO QAM 01/11/23 04/05/24 History release potassium chloride 10 mEq 10 meq PO DAILY 01/11/23 04/05/24 History tablet,extended release tizanidine 4 mg tablet 4 mg PO HS Muscle Spasm 01/11/23 04/05/24 History azelastine 137 mcg (0.1 %) nasal 2 spray intranasal BID 05/22/23 04/05/24 History spray aerosol albuterol sulfate 2.5 mg/3 mL 2.5 mg continuous nebulization Q4 09/20/23 04/05/24 History (0.083 %) solution for nebulization PRN Shortness Of Breath Or Wheezing albuterol sulfate 90 mcg/actuation 2 puff inhalation QID PRN 09/20/23 04/05/24 History aerosol inhaler Shortness Of Breath Or Wheezing ipratropium 0.5 mg-albuterol 3 mg 3 ml inhalation QID PRN Shortness 09/20/23 04/05/24 History (2.5 mg base)/3 mL nebulization Of Breath Or Wheezing soln multivitamin with minerals 1 tab PO DAILY 09/20/23 04/05/24 History (Multiple Vitamin-Minerals tablet) fluticasone propionate 50 2 spray ANNE DAILY #16 grams 09/21/23 04/05/24 Rx mcg/actuation nasal spray,suspension cholecalciferol (vitamin D3) 50 50 mcg PO DAILY 04/05/24 04/05/24 History mcg (2,000 unit) tablet (Vitamin D3) mometasone-formoterol HFA 100 1 puff inhalation DIRECTED PRN 04/05/24 04/05/24 History mcg-5 mcg/actuation aerosol inhaler .. tamsulosin 0.4 mg capsule 0.4 mg PO QAM 04/05/24 04/05/24 History Past Med/Surg History Problem List (Updated 04/04/24 @ 23:41 by Brian Clay DO) Left arm weakness (Acute) Chest pain (Acute) Stroke-like symptoms (Acute) Complicated bronchitis Morbid obesity Afib Severe sepsis HIMA (acute kidney injury) (Acute) Leukocytosis (Acute) Shortness of breath (Acute) Acute hypokalemia (Acute) Acute exacerbation of chronic obstructive pulmonary disease (Acute) History of COVID-19 Tested positive 12/02/[address] [facility]. Had body aches; symptoms have resolved. Sinusitis Dyspnea Sweating increase Fatigue Encounter for pre-operative examination Body fluid retention (Chronic 02/23/13) Bronchitis (Acute) Atelectasis Hematuria (Acute) Renal calculus, right Arthritis (Chronic) HTN (hypertension) (Chronic) Medical History Hepatic steatosis Aortic root dilation 4.7cm. Ascending aorta also enlarged at 4.[address] cm[address] with [facility] cardio. Osteoarthritis Kidney stone Hypothyroidism Migraine Hyperlipidemia Surgical History Status post lobectomy of lung R middle lobe, with post op pleuropericarditis and cardiac tamponade requiring transfer to [facility] [place] for urgent pericardiocentesis. History of colonoscopy [place] teeth removed History of bronchoscopy Family History Other Cancer Diabetes No family history of adverse response to anesthesia Social History Smoking Status: Never smoker Second Hand Exposure: No; Do You Dip or Chew Tobacco: No; Hx Alcohol Use: Yes (Socially) Alcohol type: beer, wine and hard liquor Hx Substance Use: No Preferred Language: Uzbek Communication Ability: Effective Culvert Installer Required: No Beliefs That Will Affect Care: None Current Living Situation: Spouse and Other Current Living Situation Comment: Son, and at home. Other Information That Helps Us Care for You: No Feels Safe at Home: Yes Safety Concerns: Feels Safe At This Time Assistive Devices: Cane, Glasses and Hospital Bed Review of Systems Review of Systems: As per HPI, all other systems reviewed and negative Physical Exam Physical Exam: GENERAL: Pleasant, morbidly obese, no respiratory distress SKIN: Pallor, warm HEENT: Bespectacled, pale palpebral conjunctivae, no ptosis, dry buccal mucosa NECK : Supple, short neck, no tenderness CHEST : Decreased breath sounds, no tenderness HEART : RRR, no obvious murmurs ABDOMEN: Marked distention, nontender EXTREMITIES : Minimal LE swelling, no LE tenderness, no other conspicuous deformities noted NEUROLOGIC : Coherent, no facial asymmetry, MMTS BUE/BLE 5/5, negative pronator drift Results & Data Results & Data Vital Signs (Past 12 Hours) Vital Signs Temp Pulse Resp BP Pulse Ox O2 Del Method 04/04/24 22:50 80 93 04/04/24 22:42 82 15 04/04/24 22:20 82 22 95 04/04/24 22:10 86 18 94 04/04/24 22:00 132/77 04/04/24 22:00 85 22 97 04/04/24 21:50 84 21 93 04/04/24 21:40 86 22 93 04/04/24 21:30 84 17 93 04/04/24 21:20 85 23 94 04/04/24 21:11 Room Air 05/17/24 21:10 83 93 04/04/24 21:09 84 04/04/24 21:05 87 23 95 04/04/24 21:04 149/85 H 04/04/24 20:28 36.8 C 86 20 130/74 94 Room Air Laboratory Results Laboratory Results WBC 9.48 K/ul (4.8-10.8) 04/04/24 20:38 RBC 4.49 M/uL (4.70-6.10) L 04/04/24 20:38 Hgb 13.7 g/dl (14.0-18.0) L 04/04/24 20:38 Hct 39.4 % (42.0-52.0) L 04/04/24 20:38 MCV 87.8 fL (80.0-100.0) 04/04/24 20:38 MCH 30.5 pg (25.0-34.0) 04/04/24 20:38 MCHC 34.8 g/dL (32.0-36.0) 04/04/24 20:38 RDW Std Deviation 42.1 fL (36.4-46.3) 04/04/24 20:38 RDW Coeff of Bola 13.2 % (11.5-14.5) 04/04/24 20:38 Plt Count 192 K/uL (130-400) 04/04/24 20:38 MPV 10.7 fL (9.4-12.4) 04/04/24 20:38 Immature Gran % (Auto) 0.3 % 04/04/24 20:38 Neut % (Auto) 51.3 % 04/04/24 20:38 Lymph % (Auto) 36.2 % 04/04/24 20:38 [place] % (Auto) 8.0 % 04/04/24 20:38 Eos % (Auto) 3.1 % 04/04/24 20:38 Baso % (Auto) 1.1 % 04/04/24 20:38 Neut # (Auto) 4.87 K/uL (1.40-6.50) 04/04/24 20:38 Lymph # (Auto) 3.43 K/uL (1.20-3.40) H 04/04/24 20:38 [place]ides # (Auto) 0.76 K/uL (0.11-0.59) H 04/04/24 20:38 Eos # (Auto) 0.29 K/uL (0.00-0.50) 04/04/24 20:38 Baso # (Auto) 0.10 K/uL (0.00-0.20) 04/04/24 20:38 Immature Gran # (Auto) 0.03 K/uL (0.01-0.20) 04/04/24 20:38 PT 10.4 Seconds (9.0-12.0) 04/04/24 20:38 INR 1.0 (0.9-1.1) 04/04/24 20:38 APTT 28 Seconds (21-31) 04/04/24 20:38 PTT Ratio 1.0 04/04/24 20:38 Sodium 138 mmol/L (136-145) 04/04/24 20:38 Potassium 3.9 mmol/L (3.5-5.1) 04/04/24 20:38 Chloride 104 mmol/L (98-107) 04/04/24 20:38 Carbon Dioxide 25 mmol/L (21-32) 04/04/24 20:38 Anion Gap 9 (3-11) 04/04/24 20:38 BUN 13 mg/dl (6-23) 04/04/24 20:38 Creatinine 1.06 mg/dl (0.6-1.4) 04/04/24 20:38 Est Cr Clr Drug Dosing 97.2 ml/min 04/04/24 20:38 Est GFR ( Amer) 87.4 ml/min 04/04/24 20:38 Est GFR (Non-Af Amer) 75.4 ml/min 04/04/24 20:38 BUN/Creatinine Ratio 12.3 (10-20) 04/04/24 20:38 Glucose 160 mg/dl (70-99(Fasting)) H 04/04/24 20:38 POC Glucose 184 mg/dl (70-99) H 04/04/24 22:27 Calcium 9.1 mg/dl (8.6-10.3) 04/04/24 20:38 Magnesium 2.0 mg/dl (1.7-2.4) 04/04/24 20:38 Total Bilirubin 0.5 mg/dl (0.2-1.0) 04/04/24 20:38 AST 35 U/L (13-39) 04/04/24 20:38 ALT 51 U/L (7-52) 04/04/24 20:38 Alkaline Phosphatase 71 U/L (34-104) 04/04/24 20:38 Troponin I High Sens 8.3 pg/ml (0-20) 04/04/24 20:38 Total Protein 6.8 gm/dl (6.0-8.3) 04/04/24 20:38 Albumin 4.2 gm/dl (3.4-5.0) 04/04/24 20:38 Globulin 2.6 gm/dl (2.5-4.0) 04/04/24 20:38 Albumin/Globulin Ratio 1.6 (0.9-2) 04/04/24 20:38 Impressions Chest CTA 04/04/24 22:24 Exam(s): CTA CHEST W/WO Contrast IV Amt: 117ml optiray 320 EXAM: CT Angiography Chest Without and With Intravenous Contrast CLINICAL HISTORY: Reason for exam: CP, stroke like SS. TECHNIQUE: Axial computed tomographic angiography images of the chest without and with intravenous contrast. CTDI is 66.79 mGy and DLP is 3185.42 mGy-cm. Automated exposure control was utilized for the study. A dose lowering technique was utilized adhering to the principles of ALARA. MIP reconstructed images were created and reviewed. CONTRAST: Patient received 117ml optiray 320 of IV contrast COMPARISON: No relevant prior studies available. FINDINGS: Pulmonary arteries: Unremarkable. No pulmonary embolism. Aorta: Mildly aneurysmal ascending thoracic aorta measuring 4 cm. No acute aortic syndrome. Lungs: Unremarkable. Pleural space: Unremarkable. Heart: Unremarkable. Bones/joints: No acute fracture. Soft tissues: Unremarkable. Lymph nodes: Unremarkable. IMPRESSION: Mildly aneurysmal ascending thoracic aorta measuring 4 cm. No acute aortic syndrome. Electronically signed by: Jude Arvizu MD 04/04/24 23:[address] 04/04/24 22:24 CR Exam(s): CT HEAD Without Contrast EXAM: CT Head Without Intravenous Contrast CLINICAL HISTORY: Reason for exam: neuro deficit, acute stroke suspected. TECHNIQUE: Axial computed tomography images of the head/brain without intravenous contrast. CTDI is 66.79 mGy and DLP is 3185.42 mGy-cm. Automated exposure control was utilized for the study. A dose lowering technique was utilized adhering to the principles of ALARA. COMPARISON: No relevant prior studies available. FINDINGS: Brain: No hemorrhage, extra-axial fluid collection, mass effect, or edema. Atrophy and chronic microvascular ischemic changes. Ventricles: Unremarkable. Bones/joints: Unremarkable. No fracture. Soft tissues: Unremarkable. Sinuses: No acute sinusitis. Mastoid air cells: Unremarkable as visualized. IMPRESSION: 1. No acute intracranial abnormality. Communications: Call Doctor Stroke Electronically signed by: Jude Arvizu MD 04/04/24 22:45 PM Head CTA 04/04/24 22:24 CR Exam(s): CTA HEAD With Contrast EXAM: CT Angiography Head With Intravenous Contrast CLINICAL HISTORY: Reason for exam: neuro deficit, acute stroke suspected. TECHNIQUE: Axial computed tomographic angiography images of the head with intravenous contrast. CTDI is 66.79 mGy and DLP is 3185.42 mGy-cm. Automated exposure control was utilized for the study. A dose lowering technique was utilized adhering to the principles of ALARA. MIP reconstructed images were created and reviewed. COMPARISON: No relevant prior studies available. FINDINGS: Right internal carotid artery: No acute findings. Intracranial segment is patent with no significant stenosis. No aneurysm. Right anterior cerebral artery: Unremarkable. No occlusion or significant stenosis. No aneurysm. Right middle cerebral artery: Unremarkable. No occlusion or significant stenosis. No aneurysm. Right posterior cerebral artery: Unremarkable. No occlusion or significant stenosis. No aneurysm. Right vertebral artery: Unremarkable as visualized. Left internal carotid artery: No acute findings. Intracranial segment is patent with no significant stenosis. No aneurysm. Left anterior cerebral artery: Unremarkable. No occlusion or significant stenosis. No aneurysm. Left middle cerebral artery: Unremarkable. No occlusion or significant stenosis. No aneurysm. Left posterior cerebral artery: origin of the ELECTROFORMER on the left. No occlusion or significant stenosis. No aneurysm. Left vertebral artery: Unremarkable as visualized. Basilar artery: Unremarkable. No occlusion or significant stenosis. No aneurysm. IMPRESSION: No acute findings in the arteries of the head/brain. Communications: Call Doctor Stroke Electronically signed by: Jude Arvizu MD 04/04/24 23:54 PM Neck CTA 04/04/24 22:24 CR Exam(s): CTA NECK With Contrast IV Amt: 117ml optiray 320 EXAM: CT Angiography Neck With Intravenous Contrast CLINICAL HISTORY: Reason for exam: neuro deficit, acute stroke suspected. TECHNIQUE: Routine carotid CT angiography protocol was performed with intravenous contrast. NASCET criteria using the distal ICAs for comparison were used for evaluation of stenoses. CTDI is 66.79 mGy and DLP is 3185.42 mGy-cm. Automated exposure control was utilized for the study. A dose lowering technique was utilized adhering to the principles of ALARA. MIP reconstructed images were created and reviewed. CONTRAST: Patient received 117ml optiray 320 of IV contrast COMPARISON: None. FINDINGS: VASCULATURE: Right common carotid artery: Unremarkable. No occlusion or significant stenosis. No dissection. Right internal carotid artery: Unremarkable. Extracranial segment is patent with no occlusion or significant stenosis. No dissection. Right vertebral artery: Unremarkable. No occlusion or significant stenosis. No dissection. Left common carotid artery: Unremarkable. No occlusion or significant stenosis. No dissection. Left internal carotid artery: Unremarkable. Extracranial segment is patent with no occlusion or significant stenosis. No dissection. Left vertebral artery: Unremarkable. No occlusion or significant stenosis. No dissection. NECK: Bones/joints: Unremarkable. No acute fracture. Soft tissues: Unremarkable. Lung apices: Clear. CAROTID STENOSIS REFERENCE USING NASCET CRITERIA: % ICA stenosis = (1 - narrowest ICA diameter/diameter of distal cervical ICA) x 100. Mild - <50% stenosis. Moderate - 50-69% stenosis. Severe - 70-94% stenosis. Near occlusion - 95-99% stenosis. Occluded - 100% stenosis. IMPRESSION: Negative CTA neck. Communications: Call Doctor Stroke Electronically signed by: Jude Arvizu MD 04/04/24 23:44 PM Diagnostic Findings EKG as per my interpretation : Rate 90, LAD, LAFB, incomplete RBBB, nonspecific T wave abnormalities, multiple artifacts (1) Chest pain Chest pain type: unspecified Qualified Code(s): R07.9 - Chest pain, unspecified
[2024-04-05] MEDS ORDERED: NITROGLYCERIN SL 0.4 MG/TAB TAB SL PRN (00:13)
[2024-04-05] MEDS ORDERED: LORazepam 0.5 MG TAB PO PRN (00:13)
[2024-04-05] MEDS ORDERED: PHARMACIST DISCHARGE MED REC CONSULT PRN (00:13)
[2024-04-05] MEDS ORDERED: PROMETHAZINE HCL 12.5 MG in SODIUM CHLORIDE 0.9% 50 ML IV PRN (00:13)
[2024-04-05] MEDS ORDERED: oxyCODONE HCL IR 5 MG TAB (IMMEDIATE RELEASE) PO PRN (00:13)
[2024-04-05] MEDS ORDERED: MoRPHine SULFATE 4 MG/ML 1 ML CARP\\VIAL IV PRN (00:13)
[2024-04-05] MEDS: NSS + 20MEQ KCL 20 MEQ/1,000 ML BAG IV ONE (00:29)
[2024-04-05] MEDS ORDERED: ALBUT/IPRATROP 3MG/0.5MG NEB 3 ML VIAL NEB PRN (00:38)
[2024-04-05 06:19] LABS: BUN Creatinine Ratio 15.8 (10-20); Calcium 8.9 mg/dl (8.6-10.3); Chol HDL Ratio 3.9 (0-5); Creatinine Clr Calc Pharmacy 101.2 ml/min; Est GFR (African American) 92.6 ml/min; Est GFR (Non-African American) 79.9 ml/min; Potassium 3.9 mmol/L (3.5-5.1)
[2024-04-05] MEDS: LEVOTHYROXINE SODIUM 125 MCG TABLET PO SCH (06:19)
[2024-04-05 06:26] LABS: Troponin I High Sensitivity 8.3 pg/ml (0-20)
[2024-04-05 07:08] LABS: Basophils # (auto) 0.09 K/uL (0.00-0.20); Eosinophils % (auto) 3.5 %; Hemoglobin 12.3 g/dl (14.0-18.0); Immature Granulocytes # (auto) 0.02 K/uL (0.01-0.20); Immature Granulocytes % (auto) 0.2 %; Lymphocytes # (auto) 3.58 K/uL (1.20-3.40); Lymphocytes % (auto) 41.2 %; Mean Corpuscular Hemoglobin 29.6 pg (25.0-34.0); Mean Corpuscular Hgb Conc 33.2 g/dL (32.0-36.0); Mean Corpuscular Volume 89.2 fL (80.0-100.0); Mean Platelet Volume 11.1 fL (9.4-12.4); Monocytes # (auto) 0.85 K/uL (0.11-0.59); Monocytes % (auto) 9.8 %; Neutrophils # (auto) 3.84 K/uL (1.40-6.50); Neutrophils % (auto) 44.3 %; Platelet Count 179 K/uL (130-400); RDW Coefficient of Variation 13.3 % (11.5-14.5); RDW Standard Deviation 43.5 fL (36.4-46.3); Red Blood Count 4.15 M/uL (4.70-6.10); White Blood Count 8.68 K/ul (4.8-10.8)
--- NOTE | 2024-04-05 07:34 | XRay Report ---
XR chest 1V not portable HISTORY: 63 years-old Male Chest pain, nonspecific COMPARISON: CTA chest of same day TECHNIQUE: PA view of the chest FINDINGS: Cardiomediastinal and hilar silhouettes are within normal limits. No pneumothorax, pleural effusion, airspace consolidation or pulmonary edema. Spinal stimulator leads overlie the mid thoracic spine. Vic cristhian appear grossly intact. IMPRESSION: . ACT 112: Negative or not required by law. The above report was generated using voice recognition software. It may contain grammatical, syntax o r spelling errors. Electronically signed by: Quinten Sanchez M.D. 04/05/2024 7:32 AM
[2024-04-05 07:35] LABS: Estimated Average Glucose 126 mg/dl
[2024-04-05] MEDS: CETIRIZINE HCL 10 MG TABLET PO SCH (08:37)
[2024-04-05] MEDS: AZELASTINE HCL 0.1% NASAL 200 SPRAYS/27,400 MCG BTL SCH (08:37)
[2024-04-05] MEDS: PANTOprazole 40 MG TAB PO SCH (08:37)
[2024-04-05] MEDS: ASPIRIN 81 MG ECTAB PO SCH (08:37)
[2024-04-05] MEDS: CEROVITE ADV FORMULA TAB PO SCH (08:37)
[2024-04-05] MEDS: ATORVASTATIN 40 MG TAB PO SCH (08:37)
[2024-04-05] MEDS: TAMSULOSIN HCL 0.4 MG CAP PO SCH (08:37)
[2024-04-05] MEDS: FLUTICASONE PROPIONATE NA SPR 16 GM BTL NAE SCH (08:38)
[2024-04-05] MEDS: ENOXAPARIN INJ 40 MG/0.4 ML SYR SQ SCH (08:40)
--- NOTE | 2024-04-05 09:58 | Hospitalist Progress Note ---
Date of Service April 05, 2024 Assessment & Plan (1) Chest pain: Plan Pt is a 63yoM with PMHx significant for chronic diastolic heart failure (EF 60%, TTE 2022), PSVT, history of cardiac tamponade, PVD, hypertension, hyperlipidemia, bronchial asthma/bronchiectasis, pulmonary nodule status post surgery, GERD, hepatic steatosis, hypothyroidism, chronic back pain status post spinal cord stimulator, chronic anemia (baseline hemoglobin of 13), mood disorder who presented as a stroke alert with concerning left sided upper and lower extremity weakness and numbness. LUE and LLE Weakness and Numbness Stroke rule out With left upper extremity/LLE radiation Somewhat atypical given transient LUE weakness/numbness Transient LUE weakness numbness TIA versus complicated migraine given concomitant headache and photophobia complaints Head CT, head and neck CTA all without acute ctroke Brain MRI pending Trops x3 wnl, EKG NSR Echo pending Neurochecks Continue telemetry monitoring Aspirin for stroke prevention PT/OT/Speech Consider Neurology consultation for further recommendations Ascending thoracic Aorta Anuerysm Noted on Chest CTA, ~4cm PCP followup for continued monitoring or further evaluation Arachnoid cyst Noted on CT head, anterior to L temporal lobe Noted unchanged from 2013 imaging chronic diastolic heart failure patient euvolemic hx PSVT past history of cardiac tamponade PVD (aortic root dilatation/ascending aortic dilatation as per records) hypertension stable hyperlipidemia on statin Rx hx pulmonary nodule status post surgery Bronchial asthma chronic cough symptoms hypothyroidism euthyroid as of recent outpatient TSH Hyperglycemia likely prediabetes hemoglobin A1c of 6.2 last year Chronic back pain status post stimulator Chronic anemia hemoglobin at baseline Mood disorder stable DVT prophylaxis. Lovenox subcu Full code Admission and Anticipated Discharge Date Admission Date: April 05, 2024 Results & Data Results & Data Vital Signs (Past 12 Hours) Vital Signs Temp Pulse Pulse Resp BP BP Pulse Ox 04/05/24 07:48 36.7 C 85 18 138/85 93 04/05/24 03:19 36.8 C 77 22 139/81 94 04/05/24 02:40 04/05/24 02:40 36.8 C 77 22 139/81 94 04/05/24 02:30 81 04/05/24 01:30 79 21 96 04/05/24 01:20 82 25 H 95 04/05/24 01:10 79 23 94 04/05/24 01:01 81 20 164/84 H 94 04/05/24 01:00 79 20 96 04/05/24 00:50 81 22 95 04/05/24 00:40 83 21 94 04/05/24 00:30 79 24 95 04/05/24 00:20 82 24 95 04/05/24 00:10 79 20 95 04/05/24 00:01 76 25 H 126/81 95 04/05/24 00:00 77 21 95 04/04/24 23:50 80 20 95 04/04/24 23:40 79 21 95 04/04/24 23:30 79 26 H 95 04/04/24 23:20 80 25 H 95 04/04/24 23:10 80 25 H 94 04/04/24 23:00 78 19 128/80 93 04/04/24 22:50 80 93 04/04/24 22:42 82 15 04/04/24 22:20 82 22 95 04/04/24 22:10 86 18 94 04/04/24 22:00 132/77 04/04/24 22:00 85 22 97 O2 Del Method 04/05/24 07:48 Room Air 04/05/24 03:19 Room Air 04/05/24 02:40 Room Air 04/05/24 02:40 Room Air 04/05/24 02:30 04/05/24 01:30 04/05/24 01:20 04/05/24 01:10 04/05/24 01:01 04/05/24 01:00 04/05/24 00:50 04/05/24 00:40 04/05/24 00:30 04/05/24 00:20 04/05/24 00:10 04/05/24 00:01 04/05/24 00:00 04/04/24 23:50 04/04/24 23:40 04/04/24 23:30 04/04/24 23:20 04/04/24 23:10 04/04/24 23:00 04/04/24 22:50 04/04/24 22:42 04/04/24 22:20 04/04/24 22:10 04/04/24 22:00 04/04/24 22:00 Diagnostic Findings Chest X-Ray 04/04/24 20:31 XR chest 1V not portable HISTORY: 63 years-old Male Chest pain, nonspecific COMPARISON: CTA chest of same day TECHNIQUE: PA view of the chest FINDINGS: Cardiomediastinal and hilar silhouettes are within normal limits. No pneumothorax, pleural effusion, airspace consolidation or pulmonary edema. Spinal stimulator leads overlie the mid thoracic spine. Bones appear grossly intact. IMPRESSION: . ACT 112: Negative or not required by law. The above report was generated using voice recognition software. It may contain grammatical, syntax or spelling errors. Electronically signed by: Quinten Sanchez M.D. 04/05/2024 7:32 AM Chest CTA 04/04/24 22:24 Exam(s): CTA CHEST W/WO Contrast IV Amt: 117ml optiray 320 EXAM: CT Angiography Chest Without and With Intravenous Contrast CLINICAL HISTORY: Reason for exam: CP, stroke like SS. TECHNIQUE: Axial computed tomographic angiography images of the chest without and with intravenous contrast. CTDI is 66.79 mGy and DLP is 3185.42 mGy-cm. Automated exposure control was utilized for the study. A dose lowering technique was utilized adhering to the principles of ALARA. MIP reconstructed images were created and reviewed. CONTRAST: Patient received 117ml optiray 320 of IV contrast COMPARISON: No relevant prior studies available. FINDINGS: Pulmonary arteries: Unremarkable. No pulmonary embolism. Aorta: Mildly aneurysmal ascending thoracic aorta measuring 4 cm. No acute aortic syndrome. Lungs: Unremarkable. Pleural space: Unremarkable. Heart: Unremarkable. Bones/joints: No acute fracture. Soft tissues: Unremarkable. Lymph nodes: Unremarkable. IMPRESSION: Mildly aneurysmal ascending thoracic aorta measuring 4 cm. No acute aortic syndrome. Electronically signed by: Jude Arvizu MD 04/04/24 23:[address] 04/04/24 22:24 CR Exam(s): CT HEAD Without Contrast EXAM: CT Head Without Intravenous Contrast CLINICAL HISTORY: Reason for exam: neuro deficit, acute stroke suspected. TECHNIQUE: Axial computed tomography images of the head/brain without intravenous contrast. CTDI is 66.79 mGy and DLP is 3185.42 mGy-cm. Automated exposure control was utilized for the study. A dose lowering technique was utilized adhering to the principles of ALARA. COMPARISON: No relevant prior studies available. FINDINGS: Brain: No hemorrhage, extra-axial fluid collection, mass effect, or edema. Atrophy and chronic microvascular ischemic changes. Ventricles: Unremarkable. Bones/joints: Unremarkable. No fracture. Soft tissues: Unremarkable. Sinuses: No acute sinusitis. Mastoid air cells: Unremarkable as visualized. IMPRESSION: 1. No acute intracranial abnormality. Communications: Call Doctor Stroke Electronically signed by: Jude Arvizu MD 04/04/24 22:45 PM Head CTA 04/04/24 22:24 CR Exam(s): CTA HEAD With Contrast EXAM: CT Angiography Head With Intravenous Contrast CLINICAL HISTORY: Reason for exam: neuro deficit, acute stroke suspected. TECHNIQUE: Axial computed tomographic angiography images of the head with intravenous contrast. CTDI is 66.79 mGy and DLP is 3185.42 mGy-cm. Automated exposure control was utilized for the study. A dose lowering technique was utilized adhering to the principles of ALARA. MIP reconstructed images were created and reviewed. COMPARISON: No relevant prior studies available. FINDINGS: Right internal carotid artery: No acute findings. Intracranial segment is patent with no significant stenosis. No aneurysm. Right anterior cerebral artery: Unremarkable. No occlusion or significant stenosis. No aneurysm. Right middle cerebral artery: Unremarkable. No occlusion or significant stenosis. No aneurysm. Right posterior cerebral artery: Unremarkable. No occlusion or significant stenosis. No aneurysm. Right vertebral artery: Unremarkable as visualized. Left internal carotid artery: No acute findings. Intracranial segment is patent with no significant stenosis. No aneurysm. Left anterior cerebral artery: Unremarkable. No occlusion or significant stenosis. No aneurysm. Left middle cerebral artery: Unremarkable. No occlusion or significant stenosis. No aneurysm. Left posterior cerebral artery: origin of the [employer] on the left. No occlusion or significant stenosis. No aneurysm. Left vertebral artery: Unremarkable as visualized. Basilar artery: Unremarkable. No occlusion or significant stenosis. No aneurysm. IMPRESSION: No acute findings in the arteries of the head/brain. Communications: Call Doctor Stroke Electronically signed by: Jude Arvizu MD 04/04/24 23:54 PM Neck CTA 04/04/24 22:24 CR Exam(s): CTA NECK With Contrast IV Amt: 117ml optiray 320 EXAM: CT Angiography Neck With Intravenous Contrast CLINICAL HISTORY: Reason for exam: neuro deficit, acute stroke suspected. TECHNIQUE: Routine carotid CT angiography protocol was performed with intravenous contrast. NASCET criteria using the distal ICAs for comparison were used for evaluation of stenoses. CTDI is 66.79 mGy and DLP is 3185.42 mGy-cm. Automated exposure control was utilized for the study. A dose lowering technique was utilized adhering to the principles of ALARA. MIP reconstructed images were created and reviewed. CONTRAST: Patient received 117ml optiray 320 of IV contrast COMPARISON: None. FINDINGS: VASCULATURE: Right common carotid artery: Unremarkable. No occlusion or significant stenosis. No dissection. Right internal carotid artery: Unremarkable. Extracranial segment is patent with no occlusion or significant stenosis. No dissection. Right vertebral artery: Unremarkable. No occlusion or significant stenosis. No dissection. Left common carotid artery: Unremarkable. No occlusion or significant stenosis. No dissection. Left internal carotid artery: Unremarkable. Extracranial segment is patent with no occlusion or significant stenosis. No dissection. Left vertebral artery: Unremarkable. No occlusion or significant stenosis. No dissection. NECK: Bones/joints: Unremarkable. No acute fracture. Soft tissues: Unremarkable. Lung apices: Clear. CAROTID STENOSIS REFERENCE USING NASCET CRITERIA: % ICA stenosis = (1 - narrowest ICA diameter/diameter of distal cervical ICA) x 100. Mild - <50% stenosis. Moderate - 50-69% stenosis. Severe - 70-94% stenosis. Near occlusion - 95-99% stenosis. Occluded - 100% stenosis. IMPRESSION: Negative CTA neck. Communications: Call Doctor Stroke Electronically signed by: Jude Arvizu MD 04/04/24 23:44 PM (1) Chest pain Chest pain type: unspecified Qualified Code(s): R07.9 - Chest pain, unspecified
--- NOTE | 2024-04-05 10:41 | Electrocardiogram Report ---
Test Reason : Blood Pressure : / mmHG Vent. Rate : 089 BPM Atrial Rate : 089 BPM P-R Int : 138 ms QRS Dur : 092 ms QT Int : 390 ms P-R-T Axes : 033 -29 031 degrees QTc Int : 474 ms Poor data quality, interpretation may be adversely affected Sinus rhythm Incomplete right bundle branch block Borderline ECG When compared with ECG of 19-SEP-2023 22:26, No significant change Confirmed by Wilman Patel ([id number]) on 04/05/2024 10:41:34 AM Referred By: REFERRED SELF Confirmed By:Wilman Patel
--- NOTE | 2024-04-05 10:49 | Electrocardiogram Report ---
Test Reason : Blood Pressure : / mmHG Vent. Rate : 075 BPM Atrial Rate : 075 BPM P-R Int : 162 ms QRS Dur : 096 ms QT Int : 410 ms P-R-T Axes : 042 -02 040 degrees QTc Int : 457 ms Poor data quality, interpretation may be adversely affected Consider inferior WA Otherwise normal ECG When compared with ECG of 04-APR-2024 20:36, (unconfirmed) No significant change Confirmed by Wilman Patel ([id number]) on 04/05/2024 10:48:45 AM Referred By: REFERRED SELF Confirmed By:Wilman Patel
--- NOTE | 2024-04-05 12:24 | Magnetic Resonance Report ---
MR brain wo con HISTORY: 63 years-old Male tia acute strokelike symptoms COMPARISON: Brain MRI 02/25/2013, head CT 04/04/2024 TECHNIQUE: Multiplanar multisequence MRI of the brain was obtained without IV contrast. FINDINGS: No restricted diffusion. Unremarkable midline structures. No acute intracranial hemorrhage, midline s hift, abnormal extra-axial collection, hydrocephalus or intra-axial mass. Left middle cranial fossa a rachnoid cyst measures 2.2 x 2.5 x 2.8 cm causing mild mass effect on the adjacent left temporal lobe . Involutional changes with mild patchy T2/FLAIR hyperintense foci throughout the white matter. Cerebral venous sinuses and major arterial flow voids appear patent. Mild mucosal thickening in the l eft sphenoid sinus. The skull, orbits and soft tissues are unremarkable. IMPRESSION: 1. No acute intracranial abnormality. No acute or subacute infarct. 2. Unchanged left middle cranial fossa arachnoid cyst. 3. Involutional changes with mild chronic microvascular ischemic disease. ACT 112: Negative or not required by law. The above report was generated using voice recognition software. It may contain grammatical, syntax o r spelling errors. Electronically signed by: Quinten Sanchez M.D. 04/05/2024 12:21 PM
--- NOTE | 2024-04-05 16:20 | Discharge Summary ---
Discharge Summary Date of Service April 05, 2024 Notes For Next Care Provider Please ensure follow up with Neurology- pt declined evaluation inpatient preferring to followup outpatient. Was anxious for discharge. Please followup on noted enlarged aorta on echo and arachnoid cyst on head imaging. Medication Changes From Visit None Admission HPI Per Admitting Provider History obtained from patient, family, and records. Medical history significant for chronic diastolic heart failure (EF 60%, TTE 2022), PSVT, history of cardiac tamponade, PVD, hypertension, hyperlipidemia, bronchial asthma/bronchiectasis, pulmonary nodule status post surgery, GERD, hepatic steatosis, hypothyroidism, chronic back pain status post spinal cord stimulator, chronic anemia (baseline hemoglobin of 13), mood disorder. Last confinement September 2023 for sepsis secondary to complicated bronchitis. Patient was watching television around dinnertime when he experienced sudden onset achy left-sided chest pain going to the left arm and left leg associated with achy headache, photophobia, left-sided weakness symptoms. Denies neck pain, abdominal pain, SOB. Usual cough symptoms productive of clear sputum. Patient compliant with home medications. No prior episodes. Different from migraine attack. Stroke alert called upon arrival at the ER. [facility] neurologist did not recommend thrombolytic therapy given resolved left upper extremity weakness symptoms. Patient currently comfortable. 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 Admission Exam Per Admitting Provider GENERAL: Pleasant, morbidly obese, no respiratory distress SKIN: Pallor, warm HEENT: Bespectacled, pale palpebral conjunctivae, no ptosis, dry buccal mucosa NECK : Supple, short neck, no tenderness CHEST : Decreased breath sounds, no tenderness HEART : RRR, no obvious murmurs ABDOMEN: Marked distention, nontender EXTREMITIES : Minimal LE swelling, no LE tenderness, no other conspicuous deformities noted NEUROLOGIC : Coherent, no facial asymmetry, MMTS BUE/BLE 5/5, negative pronator drift Principal Dx & Hospital Course #1 = Principal Diagnosis (1) Chest pain: Plan Pt is a 63yoM with PMHx significant for chronic diastolic heart failure (EF 60%, TTE 2022), PSVT, history of cardiac tamponade, PVD, hypertension, hyperlipide jessica, bronchial asthma/bronchiectasis, pulmonary nodule status post surgery, GERD, hepatic steatosis, hypothyroidism, chronic back pain status post spinal cord stimulator, chronic anemia (baseline hemoglobin of 13), mood disorder who presented as a stroke alert with concerning left sided upper and lower extremity weakness and numbness, chest pain and headache. Stroke-like Symptoms Complicated Migraine vs.TIA LUE and LLE Weakness and Numbness With left upper extremity/LLE radiation Somewhat atypical given transient LUE weakness/numbness Transient LUE weakness numbness Pt was a stroke alert on arrival- teleneurology recommended no TPA TIA versus complicated migraine given concomitant headache and photophobia complaints Head CT, head and neck CTA all without acute changes/ stroke Brain MRI without acute changes- noted known arachnoid cyst Trops x3 wnl, EKG NSR Echo with EF 55-60%, mild LVH, dilated aortic root and ascending aorta Neurochecks, telemetry monitoring unremarkable Aspirin for stroke prevention PT/OT/Speech evaluations with no noted abnormalities Pt's symptoms resolved. he was anxious for discharge. Discussion of need Neurology evaluation- pt prefers to follow up outpatient for Neurology evaluation. Please ensure close follow up with Neurology after discharge. Ascending thoracic Aorta Aneurysm Noted on Chest CTA, ~4cm Echo noting dilated aortic root and ascending aorta Pt aware, notes chronic PCP followup for continued monitoring or further evaluation Arachnoid cyst Noted on CT head, anterior to L temporal lobe Also noted on MRI brain Unchanged from 2013 imaging Pt aware PCP followup chronic diastolic heart failure patient euvolemic Echo with EF 55-60%, mild LVH, dilated aortic root and ascending aorta hx PSVT past history of cardiac tamponade PVD (aortic root dilatation/ascending aortic dilatation as per records) hypertension stable hyperlipidemia on statin Rx, continue hx pulmonary nodule status post surgery Bronchial asthma chronic cough symptoms, stable hypothyroidism euthyroid as of recent outpatient TSH Stable Hyperglycemia likely prediabetes hemoglobin A1c of 6.0 currently Chronic back pain status post stimulator Chronic anemia hemoglobin at baseline Mood disorder stable DVT prophylaxis. Lovenox subcu Full code Discharge Exam General: Alert, oriented. No acute distress Skin: No noted rashes or bruises Psych: Appropriate mood and affect Neuro: No gross deficits HEENT: NC/AT Chest: Nontender to palpation. CV: RRR Resp: Breath sounds clear bilaterally, no increased effort of breathing. Abdomen: Soft, nontender, nondistended. Extremities:edema in lower extremities bilaterally. Updated Medication List Medication Instructions Recorded Confirmed Type aspirin 81 mg tablet,delayed 81 mg PO QAM 05/08/19 04/05/24 History release atorvastatin 40 mg tablet 40 mg PO QAM 05/08/19 04/05/24 History cetirizine 10 mg tablet (Zyrtec) 10 mg PO QAM 05/08/19 04/05/24 History furosemide 40 mg tablet 60 mg PO QAM 05/08/19 04/05/24 History omega-3 fatty acids 500 mg capsule 500 mg PO QAM 05/08/19 04/05/24 History spironolactone 25 mg tablet 25 mg PO QAM 05/08/19 04/05/24 History vitamin E 268 mg (400 unit) capsule 400 unit PO QAM 05/08/19 04/05/24 History lisinopril 40 mg tablet 40 mg PO QAM 10/26/20 04/05/24 History meclizine 25 mg tablet 25 mg PO TID PRN Dizziness 03/23/21 04/05/24 History sumatriptan succinate 50 mg tablet 50 mg PO DAILY PRN Migraine 03/23/21 04/05/24 History (Imitrex) Headache amitriptyline 25 mg tablet 25 mg PO HS 06/21/21 04/05/24 History Flutter Valve #1 ea 08/02/21 09/20/23 Rx levothyroxine 125 mcg tablet 125 mcg PO DAILYBB 01/11/23 04/05/24 History pantoprazole 40 mg tablet,delayed 40 mg PO QAM 01/11/23 04/05/24 History release potassium chloride 10 mEq 10 meq PO DAILY 01/11/23 04/05/24 History tablet,extended release tizanidine 4 mg tablet 4 mg PO HS Muscle Spasm 01/11/23 04/05/24 History azelastine 137 mcg (0.1 %) nasal 2 spray intranasal BID 05/22/23 04/05/24 History spray aerosol albuterol sulfate 2.5 mg/3 mL 2.5 mg continuous nebulization Q4 09/20/23 04/05/24 History (0.083 %) solution for nebulization PRN Shortness Of Breath Or Wheezing albuterol sulfate 90 mcg/actuation 2 puff inhalation QID PRN 09/20/23 04/05/24 History aerosol inhaler Shortness Of Breath Or Wheezing ipratropium 0.5 mg-albuterol 3 mg 3 ml inhalation QID PRN Shortness 09/20/23 04/05/24 History (2.5 mg base)/3 mL nebulization Of Breath Or Wheezing soln multivitamin with minerals 1 tab PO DAILY 09/20/23 04/05/24 History (Multiple Vitamin-Minerals tablet) fluticasone propionate 50 2 spray ANNE DAILY #16 grams 09/21/23 04/05/24 Rx mcg/actuation nasal spray,suspension cholecalciferol (vitamin D3) 50 50 mcg PO DAILY 04/05/24 04/05/24 History mcg (2,000 unit) tablet (Vitamin D3) mometasone-formoterol HFA 100 1 puff inhalation DIRECTED PRN 04/05/24 04/05/24 History mcg-5 mcg/actuation aerosol inhaler .. tamsulosin 0.4 mg capsule 0.4 mg PO QAM 04/05/24 04/05/24 History Hospital Stay Data Consultations 04/04/24 23:41 ED Decision to Admit Stat Diagnostic Imagining Performed 04/04/24 22:24 CT angio chest dissec wo/w con Stat CT angio head w con Stat CT angio neck with con Stat CT head/brain wo con Stat 04/05/24 00:13 MR brain wo con Stat Chest X-Ray 04/04/24 20:31 XR chest 1V not portable HISTORY: 63 years-old Male Chest pain, nonspecific COMPARISON: CTA chest of same day TECHNIQUE: PA view of the chest FINDINGS: Cardiomediastinal and hilar silhouettes are within normal limits. No pneumothorax, pleural effusion, airspace consolidation or pulmonary edema. Spinal stimulator leads overlie the mid thoracic spine. Bones appear grossly intact. IMPRESSION: . ACT 112: Negative or not required by law. The above report was generated using voice recognition software. It may contain grammatical, syntax or spelling errors. Electronically signed by: Quinten Sanchez M.D. 04/05/2024 7:32 AM Chest CTA 04/04/24 22:24 Exam(s): CTA CHEST W/WO Contrast IV Amt: 117ml optiray 320 EXAM: CT Angiography Chest Without and With Intravenous Contrast CLINICAL HISTORY: Reason for exam: CP, stroke like SS. TECHNIQUE: Axial computed tomographic angiography images of the chest without and with intravenous contrast. CTDI is 66.79 mGy and DLP is 3185.42 mGy-cm. Automated exposure control was utilized for the study. A dose lowering technique was utilized adhering to the principles of ALARA. MIP reconstructed images were created and reviewed. CONTRAST: Patient received 117ml optiray 320 of IV contrast COMPARISON: No relevant prior studies available. FINDINGS: Pulmonary arteries: Unremarkable. No pulmonary embolism. Aorta: Mildly aneurysmal ascending thoracic aorta measuring 4 cm. No acute aortic syndrome. Lungs: Unremarkable. Pleural space: Unremarkable. Heart: Unremarkable. Bones/joints: No acute fracture. Soft tissues: Unremarkable. Lymph nodes: Unremarkable. IMPRESSION: Mildly aneurysmal ascending thoracic aorta measuring 4 cm. No acute aortic syndrome. Electronically signed by: Jude Arvizu MD 04/04/24 23:[address] 04/04/24 22:24 CR Exam(s): CT HEAD Without Contrast EXAM: CT Head Without Intravenous Contrast CLINICAL HISTORY: Reason for exam: neuro deficit, acute stroke suspected. TECHNIQUE: Axial computed tomography images of the head/brain without intravenous contrast. CTDI is 66.79 mGy and DLP is 3185.42 mGy-cm. Automated exposure control was utilized for the study. A dose lowering technique was utilized adhering to the principles of ALARA. COMPARISON: No relevant prior studies available. FINDINGS: Brain: No hemorrhage, extra-axial fluid collection, mass effect, or edema. Atrophy and chronic microvascular ischemic changes. Ventricles: Unremarkable. Bones/joints: Unremarkable. No fracture. Soft tissues: Unremarkable. Sinuses: No acute sinusitis. Mastoid air cells: Unremarkable as visualized. IMPRESSION: 1. No acute intracranial abnormality. Communications: Call Doctor Stroke Electronically signed by: Jude Arvizu MD 04/04/24 22:45 PM Head CTA 04/04/24 22:24 CR Exam(s): CTA HEAD With Contrast EXAM: CT Angiography Head With Intravenous Contrast CLINICAL HISTORY: Reason for exam: neuro deficit, acute stroke suspected. TECHNIQUE: Axial computed tomographic angiography images of the head with intravenous contrast. CTDI is 66.79 mGy and DLP is 3185.42 mGy-cm. Automated exposure control was utilized for the study. A dose lowering technique was utilized adhering to the principles of ALARA. MIP reconstructed images were created and reviewed. COMPARISON: No relevant prior studies available. FINDINGS: Right internal carotid artery: No acute findings. Intracranial segment is patent with no significant stenosis. No aneurysm. Right anterior cerebral artery: Unremarkable. No occlusion or significant stenosis. No aneurysm. Right middle cerebral artery: Unremarkable. No occlusion or significant stenosis. No aneurysm. Right posterior cerebral artery: Unremarkable. No occlusion or significant stenosis. No aneurysm. Right vertebral artery: Unremarkable as visualized. Left internal carotid artery: No acute findings. Intracranial segment is patent with no significant stenosis. No aneurysm. Left anterior cerebral artery: Unremarkable. No occlusion or significant stenosis. No aneurysm. Left middle cerebral artery: Unremarkable. No occlusion or significant stenosis. No aneurysm. Left posterior cerebral artery: origin of the [employer] on the left. No occlusion or significant stenosis. No aneurysm. Left vertebral artery: Unremarkable as visualized. Basilar artery: Unremarkable. No occlusion or significant stenosis. No aneurysm. IMPRESSION: No acute findings in the arteries of the head/brain. Communications: Call Doctor Stroke Electronically signed by: Jude Arvizu MD 04/04/24 23:54 PM Neck CTA 04/04/24 22:24 CR Exam(s): CTA NECK With Contrast IV Amt: 117ml optiray 320 EXAM: CT Angiography Neck With Intravenous Contrast CLINICAL HISTORY: Reason for exam: neuro deficit, acute stroke suspected. TECHNIQUE: Routine carotid CT angiography protocol was performed with intravenous contrast. NASCET criteria using the distal ICAs for comparison were used for evaluation of stenoses. CTDI is 66.79 mGy and DLP is 3185.42 mGy-cm. Automated exposure control was utilized for the study. A dose lowering technique was utilized adhering to the principles of ALARA. MIP reconstructed images were created and reviewed. CONTRAST: Patient received 117ml optiray 320 of IV contrast COMPARISON: None. FINDINGS: VASCULATURE: Right common carotid artery: Unremarkable. No occlusion or significant stenosis. No dissection. Right internal carotid artery: Unremarkable. Extracranial segment is patent with no occlusion or significant stenosis. No dissection. Right vertebral artery: Unremarkable. No occlusion or significant stenosis. No dissection. Left common carotid artery: Unremarkable. No occlusion or significant stenosis. No dissection. Left internal carotid artery: Unremarkable. Extracranial segment is patent with no occlusion or significant stenosis. No dissection. Left vertebral artery: Unremarkable. No occlusion or significant stenosis. No dissection. NECK: Bones/joints: Unremarkable. No acute fracture. Soft tissues: Unremarkable. Lung apices: Clear. CAROTID STENOSIS REFERENCE USING NASCET CRITERIA: % ICA stenosis = (1 - narrowest ICA diameter/diameter of distal cervical ICA) x 100. Mild - <50% stenosis. Moderate - 50-69% stenosis. Severe - 70-94% stenosis. Near occlusion - 95-99% stenosis. Occluded - 100% stenosis. IMPRESSION: Negative CTA neck. Communications: Call Doctor Stroke Electronically signed by: Jude Arvizu MD 04/04/24 23:44 PM Brain MRI 04/05/24 00:13 MR brain wo con HISTORY: 63 years-old Male tia acute strokelike symptoms COMPARISON: Brain MRI 02/25/2013, head CT 04/04/2024 TECHNIQUE: Multiplanar multisequence MRI of the brain was obtained without IV contrast. FINDINGS: No restricted diffusion. Unremarkable midline structures. No acute intracranial hemorrhage, midline shift, abnormal extra-axial collection, hydrocephalus or intra-axial mass. Left middle cranial fossa arachnoid cyst measures 2.2 x 2.5 x 2.8 cm causing mild mass effect on the adjacent left temporal lobe. Involutional changes with mild patchy T2/FLAIR hyperintense foci throughout the white matter. Cerebral venous sinuses and major arterial flow voids appear patent. Mild mucosal thickening in the left sphenoid sinus. The skull, orbits and soft tissues are unremarkable. IMPRESSION: 1. No acute intracranial abnormality. No acute or subacute infarct. 2. Unchanged left middle cranial fossa arachnoid cyst. 3. Involutional changes with mild chronic microvascular ischemic disease. ACT 112: Negative or not required by law. The above report was generated using voice recognition software. It may contain grammatical, syntax or spelling errors. Electronically signed by: Quinten Sanchez M.D. 04/05/2024 12:21 PM Discharge Instructions Given to Patient (Per Discharging Provider) Mr. Dean, You presented with symptoms that were concerning for a stroke and that was ruled out. You are anxious for discharge home. We believe that your symptoms were likely related to a complicated migraine but could also be due to a TIA as they have all resolved. You advised that you would prefer to follow up with neurology as an outpatient so you are being discharged at this time. Please keep follow up with Neurology after discharge. Please also keep close follow up with your primary care provider after discharge. You noted that you were already aware of the arachnoid cyst in your brain and the enlarged aorta. Again it is very important that you keep close followup with your primary care provider about these things. Please do not hesitate to come back to the emergency room if your symptoms worsen or return. It was a pleasure taking care of you while you were here. Total Time Total Time Spent Total Time Spent (In Minutes): 75
[2024-04-05] MEDS ORDERED: STROKE PATIENT DISCHARGE STA (16:36)
[2024-04-05] MEDS ORDERED: AMITRIPTYLINE HCL 25 MG TAB PO SCH (21:00)
[2024-04-05] MEDS ORDERED: tiZANidine HCL 4 MG TABLET PO SCH (21:00)
--- OUTSIDE RECORDS SUMMARY | 2024-04-06 00:01 | External Medical Summary | Summary of Care ---
Author Name Unknown Organization [facility] Address [address] [place] [address] Phone [phone] Care Team Providers Care Dental Floss Packer Name Role Phone Kelly Mitchell DO Primary Care Provider [phone] Reason for Visit * Reason Onset Date Comments Medication Refill 02/28/2024 Encounter Details Date Type Department Care Team (Late st Contact Info) Description 02/28/2024 Refill Family Practice [facility] [place] [address] [facility] [place] [address] Kelly [facility] [address] Gastroesophageal reflux disease without esophagitis Allergies Active Allergy Reactions Criticality Noted Date Comments Beta Adrenergic Blockers Bradycardia High 09/20/2023 documented as of this encounter (statuses as of 02/29/2024) Medications Medication Sig Dispensed Refills Start Date End Date Status ASPIRIN 81 MG PO TABS One daily 0 Active ZYRTEC ALLERGY 10 MG PO TABS one daily 0 Active HM VITAMIN D3 2000 UNITS PO CAPSIndications:Vi tamin D deficiency 1 CAPSULE DAILY 0 03/22/2014 A ctive Mometasone Furo-Formoterol Fum 100-5 MCG/ACT Inhalation Aerosol Inhale 1 Puff by mouth as needed. 0 08/03/2016 Active Multiple Vitamins-Minerals (MENS MULTIPLE VITAMIN/LYCOPENE) TABS Take by mouth daily. 0 Active vitamin e (AQUASOL E) 400 UNIT Capsule Take 1 Capsule by mouth in the morning. 0 Active [place]-3 Fatty Acids (OMEGA 3 500) 500 MG CAPS Take by mouth. 0 Acti ve Azelastine HCl 0.1 % nasal sprayIndications:C hronic rhinitis USE 2 SPRAY(S) IN EACH NOSTRIL TWICE DAILY 90 mL 1 04/03/2019 Active SUMAtriptan Succinate 50 MG Oral Tablet (Imitrex) TAKE ONE TABLET BY MOUTH ONE TIME ONLY,REPEAT AFTER TWO HOURS NEEDED MAX OF FOUR TABLETS 30 Tablet 0 12/12/2022 Active Additional Information Patient not taking.Reported on 02/08/2024 Meclizine HCl 25 MG Oral Tablet (Antivert) Take 1 Tablet by mouth 3 times a day as needed for Dizziness. 270 Tablet 1 12/12/2022 Active Additional Information Patient not taking.Reported on 02/08/2024 tiZANidine HCl 4 MG Oral Tablet (Zanaflex)Indicati [...] TABLET DAILY 90 Tablet 3 04/12/2023 Active Albuterol Sulfate (2.5 MG/3ML) 0.083% Inhalation Nebulization Solution (Proventil) Inhale via nebulizer every 4 hours as needed for shortness of breath or wheezing 1080 mL 0 2023 Active Amitriptyline HCl 25 MG Oral Tablet (Elavil)Indication s:Migraine variant TAKE 1 TABLET AT BEDTIME 90 Tablet 3 08/23/2023 Active Albuterol Sulfate HFA 108 (90 Base) MCG/ACT Inhalation Aerosol SolutionIndication s:Acute bronchitis, antibiotics not indicated Inhale 2 Puffs by mouth every 4 hours as needed for Wheezing. 54 g 3 10/01/2023 Active Levothyroxine Sodium 125 MCG Oral Tablet (Levoxyl) Take 1 Tablet by mouth in the morning. (at least 30 min prior to breakfast or other meds). 90 Tablet 0 11/27/2023 Active predniSONE 20 MG Oral Tablet (Deltasone) 2 Tablets. 0 09/21/2023 Active Tamsulosin HCl 0.4 MG Oral Capsule (Flomax)Indication s:BPH with obstruction/lower urinary tract symptoms Take 1 Capsule by mouth in the morning. 90 Capsule 3 01/02/2024 Active Furosemide 40 MG Oral Tablet (Lasix) TAKE ONE AND ONE-HALF TABLETS IN THE MORNING 135 Tablet 3 01/16/2024 Active Spironolactone 25 MG Oral Tablet (Aldactone) TAKE 1 TABLET IN THE MORNING 90 Tablet 3 02/19/2024 Active Atorvastatin Calcium 40 MG Oral Tablet (Lipitor)Indicatio ns:CAD (coronary artery disease) TAKE 1 TABLET DAILY 90 Tablet 0 02/19/2024 Active Lisinopril 40 MG Oral TabletIndications: HTN, goal below 140/90 Take 1 Tablet by mouth in the morning. 90 Tablet 3 02/28/2024 Active Pantoprazole Sodium 40 MG Oral Tablet Delayed Release (Protonix)Indicati ons:Gastroesophage al reflux disease without esophagitis Take 1 Tablet by mouth in the morning. 90 Tablet 1 02/29/2024 Active Pantoprazole Sodium 40 MG Oral Tablet Delayed Release (Protonix)Indicati ons:Gastroesophage al reflux disease without esophagitis TAKE 1 TABLET IN THE MORNING 90 Tablet 3 01/02/2024 Discontinue d(Refill) Hospital, Clinic, or Other Facility Administered Medication Ordered Dose Route Frequency Start Date End Date Status Albuterol Sulfate (Proventil) (2.5 MG/3ML) 0.083% inhalation solution 2.5 mgIndications:Mild persistent asthma, unspecified whether complicated 2.5 mg NEBULIZER ONCE PRN 06/12/2023 06/11/2024 Active documented as of this encounter (statuses as of 02/29/2024) Active Problems Problem Noted Date Diagnosed Date Moderate persistent asthma with exacerbation Body mass index (BMI) of 45.0 to 49.9 in adult 1 12/01/2022 Overview: Per Obesity protocol - Per Obesity protocol Mild persistent asthma 06/12/2023 Chronic pain syndrome 12/06/2022 Chest pain with normal coronary angiography 03/20 Ascending aorta dilatation 12/01/2020 Chronic diastolic (congestive) heart failure Dilated aortic root 12/11/2016 Dyslipidemia, goal LDL below 100 06/01/2014 Inflamed seborrheic keratosis 03/31/2014 Multiple pigmented nevi 03/31/2014 Abnormal EKG 01/15/2013 Elevated liver enzymes 01/15/2013 [...] as of this encounter (statuses as of 02/29/2024) Resolved Problems Problem Noted Date Diagnosed Date Resolved Date 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 Pneumonia due to other virus not elsewhere classified 12/24/2002 04/29/2021 documented as of this encounter (statuses as of 02/29/2024) Immunizations Name Administration Dates Next Due COVID-19 mRNA, LNP-s, No Pre serve, 2-Dose Series ([employer]) 04/09/2021,03/19/2021 Pneumococcal Conjugate Vacc, 13 Valent (Prevnar) 08/19/2010 Pneumococcal Polysaccharide PPV23 (Pneumovax) 08/11/2015,08/19/2010 Seasonal Influenza Virus Vac cine, Unspecified Formulation 09/02/2020,08/18/2020,08/20/2019,08/21,07/20/2018,08/16/2017,08/10/2016 ,08/03/2016,08/11/2015,08/03/2015,07/20,08/06/2013,08/14/2012, 1,08/26/2009,09/03/2003,10/15/2002 Seasonal Influenza, PF, 6 M & above, IM , (FluLaval or Fluzone) 08/13/2023 Seasonal Influenza, Quadriva lent, No Preserve, IM 08/18/2020,08/20/2019,08/03/2016 Seasonal Influenza, Recombin ant, RIV4, PF, (Flublock) 09/01/2021,09/02/2020,08/20/2019 Seasonal Influenza, Split, I IV3, With Preserve, Inj 07/20/2018,08/03/2015,08/03/2014,08/06,08/14/2012,08/26/2009 TD, Preservative Free 10/27/2020 TDAP (age 11 and older)(Adacel) 09/13/2009 Zoster Vaccine Recombinant (Shingrix) 04/23/2019 ,02/17/2019 documented as of this encounter Social History Tobacco Use Types Packs/Day Years Used Date Smoking Tobacco: Never Smokeless Tobacco: Former Quit: 04/21/2012 Comments:quit Alcohol Use Standard Drinks/Week Comments Yes 5 (1 standard drink = 0.6 oz pur e alcohol) Occ. PHQ-2 Answer Date Recorded PHQ Adult Total Score 0 04/29/2021 Sex and Gender Information Value Date Recorded Sex Assigned at Not on file Gender Identity Not on file Sexual Orientation Not on file Job Start Date Occupation Industry Not on file Not on file Not on file documented as of this encounter Miscellaneous Notes * Telephone Encounter - Nadeem Page, [facility] - 02/29/2024 12:57 PM EDTSigned Prescriptions: Disp Refills Pantoprazole Sodium 40 MG Oral Tablet Paola*90 Tab*1 Sig: Take 1 Tablet by mouth in the morning.Authorizing Provider: KELLY MITCHELL User: NADEEM HIGGINBOTHAM documented in this encounter Plan of Treatment Upcoming Encounters Date Type Department Care Team (Late st Contact Info) Description 05/13/2024 1:30 PM EDT Office Visit Dermatology, [facility] [address] [place] [address] Yusra Chadwick PA-C [address] [place] [address] [place] [address] 06/23/2024 11:00 AM EDT Cardiac Studies Cardiac Studies, [facility] [address] [place] [address] 07/02/2024 11:40 AM EDT Office Visit Family Practice [facility] [address] [facility] [place] [address] Kelly Mitchell, [address] [facility] [address] 08/15/2024 9:00 AM EDT Office Visit Cardiology, [facility] [address] [place] [address] Kath Carlin PA-C [address] [facility] [place] [address] 02/04/2025 11:00 AM EDT Scheduled Telephone Interventional [facility] [place] [facility] [address] [place] [id number] Therapy, Nurse Pain [address] [place] [address] Scheduled Procedures Name Priority Associated Diagnoses Date/Ti me COLONOSCOPY FLEXIBLE PROXIMA L DIAGNOSTIC Recall Encounter for screening colonoscopy Health Maintenance Due Date Last Done Comments Cologuard 2007 Fecal Occult Blood Test 2007 Sigmoidoscopy 2007 Depression Screening 04/29/2022 04/29/2021 COVID-19 Vaccine ( season) 2023 04/09/2021, 03/19/2021 GFR 01/02/2025 01/02/2024, 12/21, 09/18/2022, Additional history exists TSH 01/02/2025 01/02/2024, 12/21, 09/18/2022, Additional history exists Colonoscopy 11/26/2025 11/26/2015, 06/2016, 11/29/2012, Additional history exists Colorectal Cancer Screening 11/26/2025 Albumin/Creatinine Ratio 01/02/2027 01/02/2024 Diabetes Screening 01/02/2027 01/02/2024, 0 01/16/2023, 09/18/2022, Additional history exists Pneumococcal Vaccine: Pediatrics (0 to 5 Years) and At-Risk Patients (6 to 64 Years) (3 of 3 - PPSV23 or PCV20) 2027 08/11/2015, 08/19/2010, 08/19/2010 Lipid Panel 01/16/2028 01/16/2023, 03/0 [...] this encounter Medical Devices Implanted Type Area Telephone Operator Receptionist Device Identifier Shelf Expiration Date Model / Serial / Lot Medtronic Spinal Stimulator 1.8 Lead Implanted:Qty: 1 on 02/02/2023 by Bishop Jung MD at OR [facility] N/A: Spine Lumbar 10/18/2026 [id number] / / [id number] Medtronic Spinal Stimulator Lead 1.8 Implanted:Qty: 1 on 02/02/2023 by Bishop Jung MD at OR [facility] N/A: Spine Lumbar 10/18/2026 [id number] / / [id number] Envelope Tyrx Med Antibacteril - [id number] Implanted:Qty: 1 on 02/02/2023 by Bishop Jung MD at OR [facility] N/A: Spine Lumbar [employer] 08/21/2023 [id number] / / documented as of this encounter Visit Diagnoses Diagnosis Gastroesophageal reflux disease without esophagitis Esophageal reflux documented in this encounter Care Teams Dental Floss Packer Relationship Specialty Start Date End Date Kelly Mitchell DO [address] [place] [address] PCP - General Family Medicine 08/22/19 documented as of this encounter
--- OUTSIDE RECORDS SUMMARY | 2024-04-06 00:01 | External Medical Summary | Summary of Care ---
Author Name Unknown Organization [facility] Address [address] [facility] [place] [address] Phone [phone] Care Team Providers Care Navy Airspace Officer Name Role Phone Kelly Mitchell DO Primary Care Provider [phone] Reason for Visit * Reason Onset Date Comments Medication Refill 03/19/2024 Encounter Details Date Type Department Care Team (Late st Contact Info) Description 03/19/2024 Refill Family Practice [facility] 200 [facility] [place] [address] Kelly [facility] DO [facility] [address] BPH with obstruction/lower urinary tract symptoms Allergies Active Allergy Reactions Criticality Noted Date Comments Beta Adrenergic Blockers Bradycardia High 09/20/2023 documented as of this encounter (statuses as of 03/20/2024) Medications Medication Sig Dispensed Refills Start Date [...] by mouth in the morning. 0 Active [place]-3 Fatty Acids (OMEGA 3 500) 500 MG [...] before bedtime. 120 mL 5 01/16/2023 Active Albuterol Sulfate (2.5 MG/3ML) 0.083% Inhalation [...] for Wheezing. 54 g 3 10/01/2023 Active predniSONE 20 MG Oral Tablet (Deltasone) 2 Tablets. 0 09/21/2023 Active Furosemide 40 MG Oral Tablet (Lasix) [...] the morning. 90 Tablet 1 02/29/2024 Active Potassium Chloride ER 10 MEQ Oral Tablet Extended ReleaseIndications :HTN, goal below 140/90 Take 1 Tablet by mouth in the morning. 90 Tablet 3 03/10/2024 Active Levothyroxine Sodium 125 MCG Oral Tablet (Levoxyl) Take 1 Tablet by mouth in the morning. (at least 30 min prior to breakfast or other meds). 90 Tablet 3 03/20/2024 Active Tamsulosin HCl 0.4 MG Oral Capsule (Flomax)Indication s:BPH with obstruction/lower urinary tract symptoms Take 1 Capsule by mouth in the morning. 90 Capsule 2 03/20/2024 Active Tamsulosin HCl 0.4 MG Oral Capsule (Flomax)Indication s:BPH with obstruction/lower urinary tract symptoms Take 1 Capsule by mouth in the morning. 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 0 to 44.9 in adult 05/29/2022 10/04/2023 Overview: Per Obesity protocol Bradycardia 05/31/2020 09/28/2023 Encounter for surveillance of abnormal nevi 04/08/2015 04/29/2021 Neoplasm of uncertain behavior of skin 03/31/2014 09/28/2023 Edema 01/15/2013 09/28/2023 Bronchiectasis 04/18/2003 06/12/2017 Post [place] syndrome 01/17/2003 02/10/2021 Pneumonia due to other virus not elsewhere classified 12/24/2002 04/29/2021 documented as of this encounter (statuses as of 03/20/2024) Immunizations Name Administration Dates Next Due COVID-19 [...] Notes * Telephone Encounter - Dipti Thurman [facility] - 03/20/2024 2:15 PM EDTSigned Prescriptions: Disp Refills Tamsulosin HCl 0.4 MG Oral Capsule (Flomax)90 Cap*2 Sig: Take 1 Capsule by mouth in the morning.Authorizing Provider: KELLY MITCHELL User: DIPTI THURMAN * Telephone Encounter - Dipti Thurman RPh - 03/20/2024 2:14 PM EDT Rerouted remaining refills to new pharmacy as requested. Thanks, Dipti Thurman Clinical Pharmacist [facility] ([facility]) [phone] 03/20/2024, 2:14 PM documented in this encounter Plan of Treatment Upcoming Encounters Date Type Department Care Team (Late st Contact Info) Description 05/13/2024 1:30 PM EDT Office Visit Dermatology, [place] [address] [place] [address] [place] [address] Yusra Chadwick PA-C [address] [place] [address] [place] [address] 06/23/2024 11:00 AM EDT Cardiac Studies Cardiac Studies, [facility] [address] [place] [address] 07/02/2024 11:40 AM EDT Office Visit Family Practice [facility] [address] [place] [address] Kelly Mitchell DO 200 [facility] [place] [address] 08/15/2024 9:00 AM EDT Office Visit Cardiology, [facility] [address] [facility] [place] [address] Kath Carlin PA-C [address] [place] [address] 02/04/2025 11:00 AM EDT Scheduled Telephone Interventional Pain Ctr [place] [facility] [address] [facility] [place] [address] Therapy, Nurse Pain [address] [place] [address] Scheduled Procedures Name Priority Associated Diagnoses Date/Ti [...] this encounter Medical Devices Implanted Type Area Load Tester Device Identifier Shelf Expiration Date Model / Serial / Lot Medtronic Spinal Stimulator 1.8 Lead Implanted:Qty: 1 on 02/02/2023 by Bishop Jung MD at OR [facility] N/A: Spine Lumbar 10/18/2026 [id number] / / [id number] Medtronic Spinal Stimulator Lead 1.8 Implanted:Qty: 1 on 02/02/2023 by Bishop Jung MD at OR [facility] N/A: Spine Lumbar 10/18/2026 [id number] / / [id number] Envelope Tyrx Med Antibacteril - [id number] Implanted:Qty: 1 on 02/02/2023 by Bishop Jung MD at OR [facility] N/A: Spine Lumbar [employer] 08/21/2023 [id number] / / documented as of this encounter Visit Diagnoses Diagnosis BPH with obstruction/lower urinary tract symptoms Hypertrophy of prostate with urinary obstruction and other lower urinary tract symptoms (LUTS) documented in this encounter Care Teams Navy Airspace Officer Relationship Specialty Start Date End Date Kelly Mitchell DO [address] [place] [address] PCP - General Family Medicine 08/22/19 documented as of this encounter
--- OUTSIDE RECORDS SUMMARY | 2024-04-06 00:01 | External Medical Summary | Summary of Care ---
Author Name Unknown Organization [facility] Address [address] [place] [facility] [place] [address] Phone [phone] Care Team Providers Care High School Professional Name Role Phone Kelly Mitchell DO Primary Care Provider [phone] Reason for Visit * Reason Onset Date Comments Medication Refill 03/10/2024 Encounter Details Date Type Department Care Team (Late st Contact Info) Description 03/10/2024 Refill Family Practice [facility] [place] [address] Kelly [facility] [address] [facility] [address] HTN, goal below 140/90 Allergies Active Allergy Reactions Criticality Noted Date Comments Beta Adrenergic Blockers Bradycardia High 09/20/2023 documented as of this encounter (statuses as of 03/10/2024) Medications Medication Sig Dispensed Refills Start Date [...] by mouth in the morning. 0 Active [place]-3 Fatty Acids (OMEGA 3 500) 500 [...] the morning. 90 Tablet 3 03/10/2024 Active Potassium Chloride ER 10 MEQ Oral Tablet Extended ReleaseIndications :HTN, goal below 140/90 TAKE 1 TABLET DAILY 90 Tablet 3 04/12/2023 Discontinue d(Refill) Hospital, Clinic, or Other Facility Administered Medication Ordered Dose Route Frequency Start Date End Date Status Albuterol Sulfate (Proventil) (2.5 MG/3ML) 0.083% inhalation solution 2.5 mgIndications:Mild persistent asthma, unspecified whether complicated 2.5 mg NEBULIZER ONCE PRN 06/12/2023 06/11/2024 Active documented as of this encounter (statuses as of 03/10/2024) Active Problems Problem Noted Date Diagnosed Date [...] as of this encounter (statuses as of 03/10/2024) Resolved Problems Problem Noted Date Diagnosed Date [...] as of this encounter (statuses as of 03/10/2024) Immunizations Name Administration Dates Next Due COVID-19 mRNA, LNP-s, No Pre serve, 2-Dose Series ([employer]) 04/09/2021,03/19/2021 Pneumococcal Conjugate Vacc, 13 Valent (Prevnar) [...] encounter Miscellaneous Notes * [facility] 7:32 PM EDTSigned Prescriptions: Disp Refills Potassium Chloride ER 10 MEQ Oral Tablet E*90 Tab*3 Sig: Take 1 Tablet by mouth in the morning.Authorizing Provider: KELLY MITCHELL User: PIPO COLEMAN documented in this encounter Plan of Treatment Upcoming Encounters Date Type Department Care Team (Late st Contact Info) Description 05/13/2024 1:30 PM EDT Office Visit Dermatology, [facility] [address] [place] [address] Yusra Chadwick PA-C [address] [address] [place] [address] 06/23/2024 11:00 AM EDT Cardiac Studies Cardiac Studies, [facility] [address] [place] [address] 07/02/2024 11:40 AM EDT Office Visit Family Practice [facility] [address] [facility] [place] [address] Kelly Mitchell, [address] [facility] [place] [address] 08/15/2024 9:00 AM EDT Office Visit Cardiology, [facility] [address] [place] [address] Kath Carlin PA-C [address] [place] [address] 02/04/2025 11:00 AM EDT Scheduled Telephone Interventional Pain Ctr [place] [facility] [address] [place] [id number] Therapy, Nurse Pain [address] [place] [address] Scheduled Procedures Name Priority Associated Diagnoses Date/Ti me COLONOSCOPY FLEXIBLE PROXIMA L DIAGNOSTIC Recall Encounter for screening colonoscopy Health Maintenance Due Date Last Done Comments Cologuard 2007 Fecal Occult Blood Test 2007 Sigmoidoscopy 2007 Depression Screening 04/29/2022 04/29/2021 COVID-19 Vaccine (3 - 2022- season) 2023 04/09/2021, 03/19/2021 GFR 01/02/2025 01/02/2024, [...] this encounter Medical Devices Implanted Type Area Garland Machine Operator Device Identifier Shelf Expiration Date Model / Serial / Lot Medtronic Spinal Stimulator 1.8 Lead Implanted:Qty: 1 on 02/02/2023 by Bishop Jung MD at OR [facility] N/A: Spine Lumbar 10/18/2026 [id number] / / [id number] Medtronic Spinal Stimulator Lead 1.8 Implanted:Qty: 1 on 02/02/2023 by Bishop Jung MD at OR [facility] N/A: Spine Lumbar 10/18/2026 [id number] / / [id number] Envelope Tyrx Med Antibacteril - [id number] Implanted:Qty: 1 on 02/02/2023 by Bishop Jung MD at OR [facility] N/A: Spine Lumbar [employer] 08/21/2023 [id number] / / documented as of this encounter Visit Diagnoses Diagnosis HTN, goal below 140/90 Unspecified essential hypertension documented in this encounter Care Teams High School Professional Relationship Specialty Start Date End Date Kelly Mitchell DO [address] [place] [address] PCP - General Family Medicine 08/22/19 documented as of this encounter
--- OUTSIDE RECORDS SUMMARY | 2024-04-06 00:01 | External Medical Summary | Summary of Care ---
Author Name Unknown Organization [facility] Address [address] [place] [address] Phone [phone] Care Team Providers Care Practice Professional Name Role Phone Kelly Mitchell DO Primary Care Provider [phone] Reason for Visit * Reason Comments Medication Refill Encounter Details Date Type Department Care Team (Late st Contact Info) Description 03/19/2024 Refill Family Practice [facility] [address] [place] [address] Kelly [facility] [address] Allergies Active Allergy Reactions Criticality Noted Date [...] by mouth in the morning. 0 Active [place]-3 Fatty Acids (OMEGA 3 500) 500 MG [...] other meds). 90 Tablet 3 03/20/2024 Active Levothyroxine Sodium 125 MCG Oral Tablet (Levoxyl) Take 1 Tablet by mouth in the morning. (at least 30 min prior to breakfast or other meds). 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 (at least 30 min prior to breakfast or other meds).Authorizing Provider: KELLY MITCHELL User: DIPTI THURMAN documented in this encounter Plan of Treatment Upcoming Encounters Date Type Department Care Team (Late st Contact Info) Description 05/13/2024 1:30 PM EDT Office Visit Dermatology, [facility] [address] [place] [address] Yusra Chadwick PA-C [address] [place] [address] 06/23/2024 11:00 AM EDT Cardiac Studies Cardiac Studies, [facility] [address] [place] [address] 07/02/2024 11:40 AM EDT Office Visit [facility] [address] [place] [address] Kelly Mitchell, DO 200 [place] [address] 08/15/2024 9:00 AM EDT Office Visit Cardiology, [facility] [address] [place] [address] Kath Carlin PA-C 132 [facility] [place] [address] 02/04/2025 11:00 AM EDT Scheduled Telephone Interventional Pain Ctr Ch[facility] Osei [address] [place] [id number] Therapy, Nurse Pain 16 [facility] [place] [address] Scheduled Procedures Name Priority Associated Diagnoses Date/Ti [...] this encounter Medical Devices Implanted Type Area Funeral Pre Arrangement Specialist Device Identifier Shelf Expiration Date Model / Serial / Lot Medtronic Spinal Stimulator 1.8 Lead Implanted:Qty: 1 on 02/02/2023 by Bishop Jung MD at OR [facility] N/A: Spine Lumbar 10/18/2026 [id number] / / [id number] Medtronic Spinal Stimulator Lead 1.8 Implanted:Qty: 1 on 02/02/2023 by Bishop Jung MD at OR [facility] N/A: Spine Lumbar 10/18/2026 [id number] / / [id number] Envelope Tyrx Med Antibacteril - [id number] Implanted:Qty: 1 on 02/02/2023 by Bishop Jung MD at OR [facility] N/A: Spine Lumbar [employer] 08/21/2023 [id number] / / documented as of this encounter Care Teams Practice Professional Relationship Specialty Start Date End Date Kelly Mitchell DO 200 [facility] [place] [address] PCP - General Family Medicine 08/22/19 documented as of this encounter
--- OUTSIDE RECORDS SUMMARY | 2024-04-06 00:02 | External Medical Summary | Summary of Care ---
Author Name Unknown Organization [facility] Address [address] [place] [address] Phone [phone] Care Team Providers Care Operation Agent Name Role Phone Kelly Mitchell DO Primary Care Provider [phone] Reason for Visit * Reason Comments eRx-Medication Refill Encounter Details Date Type Department Care Team (Late st Contact Info) Description 02/18/2024 Refill Family Practice [facility] 200 [facility] [place] [address] Kelly Mitchell DO 200 [facility] [place] [address] CAD (coronary artery disease) Allergies Active Allergy Reactions Criticality Noted Date Comments Beta Adrenergic Blockers Bradycardia High 09/20/2023 documented as of this encounter (statuses as of 02/27/2024) Medications Medication Sig Dispensed Refills Start Date End Date Status ASPIRIN 81 MG PO TABS One daily 0 Active ZYRTEC ALLERGY 10 MG PO TABS one daily 0 Active HM VITAMIN D3 2000 UNITS PO CAPSIndications:V itamin D deficiency 1 CAPSULE DAILY 0 03/22/2014 Active Mometasone Furo-Formoterol Fum 100-5 MCG/ACT Inhalation Aerosol Inhale 1 Puff by mouth as needed. 0 08/03/2016 Active Multiple Vitamins-Minerals (MENS MULTIPLE VITAMIN/LYCOPENE) TABS Take by mouth daily. 0 Active vitamin e (AQUASOL E) 400 UNIT Capsule Take 1 Capsule by mouth in the morning. 0 Active [place]-3 Fatty Acids (OMEGA 3 500) 500 MG [...] 02/08/2024 tiZANidine HCl 4 MG Oral Tablet (Zanaflex)Indicat [...] HFA 108 (90 Base) MCG/ACT Inhalation Aerosol SolutionIndicatio ns:Acute bronchitis, antibiotics not indicated Inhale 2 Puffs by mouth every 4 hours as needed for Wheezing. 54 g 3 10/01/2023 Active Levothyroxine Sodium 125 MCG Oral Tablet (Levoxyl) Take 1 Tablet by mouth in the morning. (at least 30 min prior to breakfast or other meds). 90 Tablet 0 11/27/2023 Active Lisinopril 40 MG Oral TabletIndications :HTN, goal below 140/90 TAKE 1 TABLET IN THE MORNING 90 Tablet 3 12/20/2023 Active Pantoprazole Sodium 40 MG Oral Tablet Delayed Release (Protonix)Indicat ions:Gastroesopha geal reflux disease without esophagitis TAKE 1 TABLET IN THE MORNING 90 Tablet 3 01/02/2024 Active predniSONE 20 MG Oral Tablet (Deltasone) 2 Tablets. 0 09/21/2023 Active Tamsulosin HCl 0.4 MG Oral Capsule (Flomax)Indicatio ns:BPH with obstruction/lower urinary tract symptoms Take 1 [...] TABLET DAILY 90 Tablet 0 02/19/2024 Active Atorvastatin Calcium 40 MG Oral Tablet (Lipitor)Indicati ons:CAD (coronary artery disease) TAKE 1 TABLET DAILY 90 Tablet 2 06/08/2023 02/19/20 24 Discontinued Spironolactone 25 MG Oral Tablet (Aldactone) TAKE 1 TABLET IN THE MORNING 90 Tablet 2 06/08/2023 02/19/20 24 Discontinued Hospital, Clinic, or Other Facility Administered Medication Ordered Dose Route Frequency Start Date End Date Status Albuterol Sulfate (Proventil) (2.5 MG/3ML) 0.083% inhalation solution 2.5 mgIndications:Mild persistent asthma, unspecified whether complicated 2.5 mg NEBULIZER ONCE PRN 06/12/2023 06/11/2024 Active documented as of this encounter (statuses as of 02/27/2024) Active Problems Problem Noted Date Diagnosed Date [...] as of this encounter (statuses as of 02/27/2024) Resolved Problems Problem Noted Date Diagnosed Date Resolved Date 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 Pneumonia due to other virus not elsewhere classified 12/24/2002 04/29/2021 documented as of this encounter (statuses as of 02/27/2024) Immunizations Name Administration Dates Next Due COVID-19 mRNA, LNP-s, No Pre serve, 2-Dose Series (Pfizer) 04/09/2021,03/19/2021 Pneumococcal Conjugate Vacc, 13 Valent (Prevnar) 08/19/2010 Pneumococcal Polysaccharide PPV23 (Pneumovax) 08/11/2015,08/19/2010 Seasonal Influenza Virus Vac cine, Unspecified Formulation 09/02/2020,08/18/2020,08/20/2019,08/21,07/20/2018,08/16/2017,08/10/2016 ,08/03/2016,08/11/2015,08/03/2015,07/20,08/06/2013,08/14/2012,,08/26/2009,09/03/2003,10/15/2002 Seasonal Influenza, PF, 6 M & above, [...] encounter Miscellaneous Notes * Telephone Encounter - Moni Melendrez, street contractor - 02/27/2024 9:21 AM EDT Received message from [facility] regarding patient needing labs. Call Placed, Pt was agreeable to have labs drawn but would prefer to walk-in at their convenience. Thank you for your assistance Moni Melendrez Gas Regulator Repairer Helper II [facility] ([facility]) 02/27/2024,9:21 AM * Telephone Encounter - Arlen Salvador [facility] - 02/19/2024 8:35 AM EDTSigned Prescriptions: Disp Refills Spironolactone 25 MG Oral Tablet ([place]*90 Tab*3 Sig: TAKE 1 TABLET IN THE MORNING Authorizing Provider: KELLY MITCHELL Ordering User: ARLEN SALVADOR Atorvastatin Calcium 40 MG Oral Tablet (Li*90 Tab*0 Sig: TAKE 1 TABLET DAILY Authorizing Provider: KELLY MITCHELL Ordering User: ARLEN SALVADOR * Telephone Encounter - Arlen Salvador RPh - 02/19/2024 8:34 AM EDT Provided 90 days supply with 0 refill(s). Per refill protocol patient should have LIPID on file within past year. Reviewed AMP report, Care Gaps/Health Maintenance, medications list, and for any routine labs typically ordered for this patient. Lab orders placed. Please contact patient to advise of labs ordered for blood draw. Recommend patient to fast if able for labs. Patient may still have water and regular medications. Advise to obtain labs before requesting the next refill. Thank you, Arlen Salvador PharmD Clinical Pharmacist [facility] ([facility] ([facility]) [phone] 02/19/2024, 8:35 AM documented in this encounter Plan of Treatment Upcoming Encounters Date Type Department Care Team (Late st Contact Info) Description 05/13/2024 1:30 PM EDT Office Visit Dermatology, [facility] [address] [place] [address] Yusra Chadwick PA-C [address] [place] [address] 06/23/2024 11:00 AM EDT Cardiac Studies Cardiac Studies, [facility] 132 [facility] [place] [address] 07/02/2024 11:40 AM EDT Office Visit Family Practice [facility] [address] [place] [address] Kelly Mitchell, 200 [facility] [place] [address] 08/15/2024 9:00 AM EDT Office Visit Cardiology, [facility] [address] [place] [address] Kath Carlin PA-C 132 [facility] [place] [address] 02/04/2025 11:00 AM EDT Scheduled Telephone Interventional Pain Ctr Chichi Osei [address] [place] [address] Therapy, Nurse Pain 16 [place] [address] Scheduled Procedures Name Priority Associated Diagnoses Date/Ti [...] this encounter Medical Devices Implanted Type Area Puller Out Device Identifier Shelf Expiration Date Model / Serial / Lot Medtronic Spinal Stimulator 1.8 Lead Implanted:Qty: 1 on 02/02/2023 by Bishop Jung MD at OR [facility] N/A: Spine Lumbar 10/18/2026 [id number] / / [id number] Medtronic Spinal Stimulator Lead 1.8 Implanted:Qty: 1 on 02/02/2023 by Bishop Jung MD at OR [facility] N/A: Spine Lumbar 10/18/2026 [id number] / / [id number] Envelope Tyrx Med Antibacteril - [id number] Implanted:Qty: 1 on 02/02/2023 by Bishop Jung MD at OR [facility] N/A: Spine Lumbar [employer] 08/21/2023 [id number] / / documented as of this encounter Visit Diagnoses Diagnosis CAD (coronary artery disease) Coronary atherosclerosis of unspecified type of vessel, one[place] or graft documented in this encounter Care Teams Operation Agent Relationship Specialty Start Date End Date Kelly Mitchell DO [address] [place] [address] PCP - General Family Medicine 08/22/19 documented as of this encounter
--- OUTSIDE RECORDS SUMMARY | 2024-04-06 00:02 | External Medical Summary | Summary of Care ---
Author Name Unknown Organization [facility] Address [address] [facility] [place] [address] Phone [phone] Care Team Providers Care Cementing Bulk Material Operator Name Role Phone Farooq Rodríguez DO Primary Care Provider [phone] Encounter Details Date Type Department Care Team (Late st Contact Info) Description 02/11/2024 Orders Only PATIENT PORTAL DO NOT DELETE THIS DEPT USED BY [place] [phone] Allergies Active Allergy Reactions Criticality Noted Date Comments Beta Adrenergic Blockers Bradycardia High 09/20/2023 documented as of this encounter (statuses as of 02/11/2024) Medications Medication Sig Dispensed Refills Start Date End Date Status ASPIRIN 81 MG PO TABS One daily 0 Active ZYRTEC ALLERGY 10 MG PO TABS one daily 0 Active HM VITAMIN D3 2000 UNITS PO CAPSIndications:Vit hazel D deficiency 1 CAPSULE DAILY 0 03/22/2014 Ac tive Mometasone Furo-Formoterol Fum 100-5 MCG/ACT Inhalation Aerosol Inhale 1 Puff by mouth as needed. 0 08/03/2016 Active Multiple Vitamins-Minerals (MENS MULTIPLE VITAMIN/LYCOPENE) TABS Take by mouth daily. 0 Active vitamin e (AQUASOL E) 400 UNIT Capsule Take 1 Capsule by mouth in the morning. 0 Active [place]-3 Fatty Acids (OMEGA 3 500) 500 MG [...] 02/08/2024 tiZANidine HCl 4 MG Oral Tablet (Zanaflex)Indicatio [...] Oral Tablet (Lipitor)Indication s:CAD (coronary artery disease) TAKE 1 TABLET DAILY [...] HFA 108 (90 Base) MCG/ACT Inhalation Aerosol SolutionIndications :Acute bronchitis, antibiotics not indicated Inhale 2 Puffs by mouth every 4 hours as needed for Wheezing. 54 g 3 10/01/2023 Active Levothyroxine Sodium 125 MCG Oral Tablet (Levoxyl) Take 1 Tablet by mouth in the morning. (at least 30 min prior to breakfast or other meds). 90 Tablet 0 11/27/2023 Active Lisinopril 40 MG Oral TabletIndications:H TN, goal below 140/90 TAKE 1 TABLET IN THE MORNING 90 Tablet 3 12/20/2023 Active Pantoprazole Sodium 40 MG Oral Tablet Delayed Release (Protonix)Indicatio ns:Gastroesophageal reflux disease without esophagitis TAKE 1 TABLET IN THE MORNING 90 Tablet 3 01/02/2024 Active predniSONE 20 MG Oral Tablet (Deltasone) 2 Tablets. 0 09/21/2023 Active Tamsulosin HCl 0.4 MG Oral Capsule (Flomax)Indications :BPH with obstruction/lower urinary tract symptoms Take 1 Capsule by mouth in the morning. 90 Capsule 3 01/02/2024 Active Furosemide 40 MG Oral Tablet (Lasix) TAKE ONE AND ONE-HALF TABLETS IN THE MORNING 135 Tablet 3 01/16/2024 Active Hospital, Clinic, or Other Facility Administered Medication Ordered Dose Route Frequency Start Date End Date Status Albuterol Sulfate (Proventil) (2.5 MG/3ML) 0.083% inhalation solution 2.5 mgIndications:Mild persistent asthma, unspecified whether complicated 2.5 mg NEBULIZER ONCE PRN 06/12/2023 06/11/2024 Active documented as of this encounter (statuses as of 02/11/2024) Active Problems Problem Noted Date Diagnosed Date [...] as of this encounter (statuses as of 02/11/2024) Resolved Problems Problem Noted Date Diagnosed Date Resolved Date 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 Pneumonia due to other virus not elsewhere classified 12/24/2002 04/29/2021 documented as of this encounter (statuses as of 02/11/2024) Immunizations Name Administration Dates Next Due COVID-19 [...] [address] [place] [address] Yusra Chadwick PA-C [address] [place] [address] 06/23/2024 11:00 AM EDT [facility] [address] [place] [address] 07/02/2024 11:40 AM EDT Office Visit Family Practice [facility] [address] [place] [address] Farooq Rodríguez, 200 [facility] [place] [address] 08/15/2024 9:00 AM EDT Office Visit Cardiology, [facility] [address] [place] [address] Kath Carlin PA-C [address] [place] [address] 02/04/2025 11:00 AM EDT Scheduled Telephone Interventional Pain Ctr [place] [facility] [address] Therapy, Nurse Pain 16 [place] [address] Scheduled Procedures Name Priority Associated Diagnoses Date/Ti [...] this encounter Medical Devices Implanted Type Area Director Agricultural Services Device Identifier Shelf Expiration Date Model / Serial / Lot Medtronic Spinal Stimulator 1.8 Lead Implanted:Qty: 1 on 02/02/2023 by Bishop Jung MD at OR [facility] N/A: Spine Lumbar 10/18/2026 [id number] / / [id number] Medtronic Spinal Stimulator Lead 1.8 Implanted:Qty: 1 on 02/02/2023 by Bishop Jung MD at OR [facility] N/A: Spine Lumbar 10/18/2026 [id number] / / [id number] Envelope Tyrx Med Antibacteril - [id number] Implanted:Qty: 1 on 02/02/2023 by Bishop Jung MD at OR [facility] N/A: Spine Lumbar [employer] 08/21/2023 [id number] / / documented as of this encounter Care Teams Cementing Bulk Material Operator Relationship Specialty Start Date End Date Farooq Rodríguez DO [address] [place] [address] PCP - General Family Medicine 08/22/19 documented as of this encounter
--- OUTSIDE RECORDS SUMMARY | 2024-04-06 00:02 | External Medical Summary | Summary of Care ---
Author Name Unknown Organization [facility] Address [address] [facility] [place] [address] Phone [phone] Care Team Providers Care Call Center Recruiter Name Role Phone Farooq Rodríguez DO Primary Care Provider [phone] Reason for Visit * Reason Onset Date Comments Medication Refill 02/28/2024 Encounter Details Date Type Department Care Team (Late st Contact Info) Description 02/28/2024 Refill Cardiology, [facility] [address] [place] [address] Kath Carlin PA-C [address] [place] [address] HTN, goal below 140/90 Allergies Active Allergy Reactions Criticality Noted Date Comments Beta Adrenergic Blockers Bradycardia High 09/20/2023 documented as of this encounter (statuses as of 02/28/2024) Medications Medication Sig Dispensed Refills Start Date [...] by mouth in the morning. 0 Active [place]-3 Fatty Acids (OMEGA 3 500) 500 MG [...] other meds). 90 Tablet 0 11/27/2023 Active Pantoprazole Sodium 40 MG Oral Tablet [...] the morning. 90 Tablet 3 02/28/2024 Active Lisinopril 40 MG Oral TabletIndications: HTN, goal below 140/90 TAKE 1 TABLET IN THE MORNING 90 Tablet 3 12/20/2023 Discontinue d(Refill) Hospital, Clinic, or Other Facility Administered Medication Ordered Dose Route Frequency Start Date End Date Status Albuterol Sulfate (Proventil) (2.5 MG/3ML) 0.083% inhalation solution 2.5 mgIndications:Mild persistent asthma, unspecified whether complicated 2.5 mg NEBULIZER ONCE PRN 06/12/2023 06/11/2024 Active documented as of this encounter (statuses as of 02/28/2024) Active Problems Problem Noted Date Diagnosed Date [...] as of this encounter (statuses as of 02/28/2024) Resolved Problems Problem Noted Date Diagnosed Date Resolved Date 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 0 to 44.9 in adult 05/29/2022 10/04/2023 Overview: Per Obesity protocol Bradycardia 05/31/2020 09/28/2023 Encounter for surveillance of abnormal nevi 04/08/2015 04/29/2021 Neoplasm of uncertain behavior of skin 03/31/2014 09/28/2023 Edema 01/15/2013 09/28/2023 Bronchiectasis 04/18/2003 06/12/2017 Post [place] syndrome 01/17/2003 02/10/2021 Pneumonia due to other virus not elsewhere classified 12/24/2002 04/29/2021 documented as of this encounter (statuses as of 02/28/2024) Immunizations Name Administration Dates Next Due COVID-19 mRNA, LNP-s, No Pre serve, 2-Dose Series ([employer]) 04/09/2021,03/19/2021 Pneumococcal Conjugate Vacc, 13 Valent (Prevnar) [...] encounter Miscellaneous Notes * Telephone Encounter - Julián Garcia CRNP - 02/28/2024 3:31 PM EDT Signed Prescriptions: Disp Refills Lisinopril 40 MG Oral Tablet 90 Tab*3 Sig: Take 1 Tablet by mouth in the morning. In the morning.. Authorizing Provider: JULIÁN GARCIA * Telephone Encounter - Lynn Sykes CMA - 02/28/2024 2:17 PM EDTPending Prescriptions: Disp Refills Lisinopril 40 MG Oral Tablet 90 Tab*3 Sig: Take 1 Tablet by mouth in the morning. In the morning.. * Telephone Encounter - Lynn Sykes CMA - 02/28/2024 2:17 PM EDT Did you pend patient's preferred pharmacy and medication before forwarding?yes Pharmacy: [facility] Pending Prescriptions: Disp Refills Lisinopril 40 MG Oral Tablet 90 Tab*3 Sig: Take 1 Tablet by mouth in the morning. In the morning.. Last Visit: 02/08/2024 (in office), Visit date not found (telemedicine) Next Visit: 08/15/2024 If no future appointments scheduled, and last appointment is greater than a year ago, please schedule patient for a follow-up appointment Last date the medication was ordered: 12-20-2023 Is this request for a controlled substance?No Urine Drug Screen:No results found for this or any previous visit. Patient Phone Numbers Labs: Lab Results Component Value Date/Time CREAT 1.1 01/02/2024 10:28 AM CREAT 1.1 11/21/2019 09:45 AM POTASSIUM 3.9 01/02/2024 10:28 AM POTASSIUM 4.3 11/21/2019 09:45 AM TSH 3.83 01/02/2024 10:28 AM TSH 3.60 11/21/2019 09:45 AM LDLCALC 95 01/16/2023 10:09 AM LDLCALC 78 02/24/2020 07:57 AM LDLDIRECT NOT APPLICABLE 02/24/2020 07:57 AM LDLDIRECT 136 (H) 05/12/2011 02:10 PM ALT 86 (H) 01/16/2023 10:09 AM ALT 33 11/21/2019 09:45 AM HGBA1C 5.3 05/30/2022 07:40 AM documented in this encounter Plan of Treatment Upcoming Encounters Date Type Department Care Team (Late st Contact Info) Description 05/13/2024 1:30 PM EDT Office Visit Dermatology, [place] [address] [place] [address] Yusra Chadwick PA-C [address] [place] [address] 06/23/2024 11:00 AM EDT Cardiac Studies Cardiac Studies, [facility] [address] [place] [address] 07/02/2024 11:40 AM EDT Office Visit Family Practice [facility] 200 [facility] [place] [address] Farooq Rodríguez, DO 200 [facility] [place] [address] 08/15/2024 9:00 AM EDT Office Visit Cardiology, [facility] [address] [place] [address] Kath Carlin PACasimiro [address] [place] [address] 02/04/2025 11:00 AM EDT Scheduled Telephone Interventional Pain Ctr Chichi Osei [address] [place] [address] Therapy, Nurse Pain 16 [place] [address] Scheduled Procedures Name Priority Associated Diagnoses Date/Ti [...] this encounter Medical Devices Implanted Type Area Aircraft Inspector Device Identifier Shelf Expiration Date Model / Serial / Lot Medtronic Spinal Stimulator 1.8 Lead Implanted:Qty: 1 on 02/02/2023 by Bishop Jung MD at OR [facility] N/A: Spine Lumbar 10/18/2026 [id number] / / [id number] Medtronic Spinal Stimulator Lead 1.8 Implanted:Qty: 1 on 02/02/2023 by Bishop Jung MD at OR [facility] N/A: Spine Lumbar 10/18/2026 [id number] / / [id number] Envelope Tyrx Med Antibacteril - [id number] Implanted:Qty: 1 on 02/02/2023 by Bishop Jung MD at OR [facility] N/A: Spine Lumbar [employer] 08/21/2023 [id number] / / documented as of this encounter Visit Diagnoses Diagnosis HTN, goal below 140/90 Unspecified essential hypertension documented in this encounter Care Teams Call Center Recruiter Relationship Specialty Start Date End Date Farooq Rodríguez DO [address] [place], [place] [address] PCP - General Family Medicine 08/22/19 documented as of this encounter
--- OUTSIDE RECORDS SUMMARY | 2024-04-06 00:02 | External Medical Summary | Summary of Care ---
Author Name Unknown Organization [facility] Address [address] [facility] [place] [address] Phone [phone] Care Team Providers Care Calculus Professor Name Role Phone Farooq Rodríguez DO Primary Care Provider [phone] Reason for Visit * Reason Onset Date Comments Advice 02/05/2024 Encounter Details Date Type Department Care Team (Late st Contact Info) Description 02/05/2024 Telephone Family Practice [facility] [address] [facility] [place] [address] Farooq Rodríguez DO [address] [facility] [place] [address] Advice Allergies Active Allergy Reactions Criticality Noted Date Comments Beta Adrenergic Blockers Bradycardia High 09/20/2023 documented as of this encounter (statuses as of 02/06/2024) Medications Medication Sig Dispensed Refills Start Date End Date Status ASPIRIN 81 MG PO TABS One daily 0 Active ZYRTEC ALLERGY 10 MG PO TABS one daily 0 Active HM VITAMIN D3 2000 UNITS PO CAPSIndications:Christie min D deficiency 1 CAPSULE DAILY 0 03/22/2014 Act natasha Mometasone Furo-Formoterol Fum 100-5 MCG/ACT Inhalation Aerosol Inhale 1 Puff by mouth as needed. 0 08/03/2016 Active Multiple Vitamins-Minerals (MENS MULTIPLE VITAMIN/LYCOPENE) TABS Take by mouth daily. 0 Active vitamin e (AQUASOL E) 400 UNIT Capsule Take 1 Capsule by mouth in the morning. 0 Active [place]-3 Fatty Acids (OMEGA 3 500) 500 MG [...] HFA 108 (90 Base) MCG/ACT Inhalation Aerosol SolutionIndications: Acute bronchitis, antibiotics not indicated Inhale 2 Puffs by mouth every 4 hours as needed for Wheezing. 54 g 3 10/01/2023 Active Levothyroxine Sodium 125 MCG Oral Tablet (Levoxyl) Take 1 Tablet by mouth in the morning. (at least 30 min prior to breakfast or other meds). 90 Tablet 0 11/27/2023 Active Lisinopril 40 MG Oral TabletIndications:HT N, goal below 140/90 TAKE 1 TABLET IN THE MORNING 90 Tablet 3 12/20/2023 Active Pantoprazole Sodium 40 MG Oral Tablet Delayed Release (Protonix)Indication s:Gastroesophageal reflux disease without esophagitis TAKE 1 TABLET IN THE MORNING 90 Tablet 3 01/02/2024 Active predniSONE 20 MG Oral Tablet (Deltasone) 2 Tablets. 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 She verbalized understanding. * Telephone Encounter - Farooq Rodríguez DO - 02/05/2024 3:57 PM EDT Please call: based on the blood work we just had from December I'm not very nervous about his kidneys. Adding some extra water might help but I don;t think they need to be nervous about this. * Telephone Encounter - Lynn Padron LPN - 02/05/2024 12:15 PM EDT Pt had albumin/creatinine ratio in December through [facility] lab and at that time the result was un-interpretable due to very low albumin and creatinine values. * Telephone Encounter - Paula Britton OSA - 02/05/2024 11:26 AM EDT Patient's , Bev, called to report that patient completed a Home Kit Kidney test on 02/01/2024nd they received the results which were abnormal. Bev is wondering what patient's next steps areand if patient needs to have a sooner return visit with Dr. Rodríguez. Please advise and return Bev's call. documented in this encounter Plan of Treatment Upcoming Encounters Date Type Department Care Team (Late st Contact Info) Description 02/08/2024 8:30 AM EDT Office Visit Cardiology, [facility] [address] [address] Kath Carlin PA-C [address] [place] [address] 05/13/2024 1:30 PM EDT Office Visit Dermatology, [facility] [address] [place] [address] [place] [place] [address] Yusra Chadwick PA-C [address] [place] [address] [place] [address] 07/02/2024 11:40 AM EDT Office Visit Family [facility] [address] [facility] [address] Farooq Rodríguez, [address] [facility] [address] 02/04/2025 11:00 AM EDT [facility] [address] [place] [address] Therapy, Nurse Pain [address] [place] [address] Scheduled Procedures Name Priority Associated Diagnoses Date/Ti me COLONOSCOPY FLEXIBLE PROXIMA L DIAGNOSTIC Recall Encounter for screening colonoscopy Health Maintenance Due Date Last Done Comments Cologuard 2007 Fecal Occult Blood Test 2007 Sigmoidoscopy 2007 Depression Screening 04/29/2022 04/29/2021 COVID-19 Vaccine (2022- season) 2023 04/09/2021, 03/19/2021 GFR 01/02/2025 01/02/2024, [...] this encounter Medical Devices Implanted Type Area Cnc Applications Engineer Device Identifier Shelf Expiration Date Model / Serial / Lot Medtronic Spinal Stimulator 1.8 Lead Implanted:Qty: 1 on 02/02/2023 by Bishop Jung MD at OR [facility] N/A: Spine Lumbar 10/18/2026 [id number] / / [id number] Medtronic Spinal Stimulator Lead 1.8 Implanted:Qty: 1 on 02/02/2023 by Bishop Jung MD at OR [facility] N/A: Spine Lumbar 10/18/2026 [id number] / / [id number] Envelope Tyrx Med Antibacteril - [id number] Implanted:Qty: 1 on 02/02/2023 by Bishop Jung MD at OR [facility] N/A: Spine Lumbar [employer] 08/21/2023 [id number] / / documented as of this encounter Care Teams Calculus Professor Relationship Specialty Start Date End Date Farooq Rodríguez DO [address] [place] [address] PCP - General Family Medicine 08/22/19 documented as of this encounter
--- OUTSIDE RECORDS SUMMARY | 2024-04-06 00:02 | External Medical Summary | Summary of Care ---
Author Name Unknown Organization [facility] [address] [facility] [place] [address] Phone [phone] Care Team Providers Care Wallpaper Scraper Name Role Phone Farooq Rodríguez DO Primary Care Provider [phone] Reason for Referral * Precert (Within 10 days (routine)) - Authorized Specialty Diagnoses / Procedures Referred By Contac t Referred To Contact Cardiac Studies Diagnoses Chronic diastolic (congestive) heart failure (HCC) Dyslipidemia, goal LDL below 100 Ascending aorta dilatation (HCC) Dilated aortic root (HCC) HTN, goal below 140/90 Procedures ECHO, COMPLETE (2D), TRANS-THORACIC Kath Carlin PA-C [address] [place] [address] Referral ID Status Reason Start Date Expiration Date V isits Requested Visits Authorized [id number] Authorized Precert 06/23/2024 999 999 Reason for Visit * Reason Comments Follow Up Encounter Details Date Type Department Care Team (Late st Contact Info) Description 02/08/2024 8:30 AM EDT Office Visit Cardiology, [facility] [address] [place] [address] Kath Carlin PA-C [address] [place] [address] HTN, goal below 140/90*; Chronic diastolic (congestive) heart failure (HCC); Dyslipidemia, goal LDL below 100; Ascending aorta dilatation (HCC); Dilated aortic root (HCC) Allergies Active Allergy Reactions Criticality Noted Date Comments Beta Adrenergic Blockers Bradycardia High 09/20/2023 documented as of this encounter (statuses as of 02/08/2024) Medications Medication Sig Dispensed Refills Start Date [...] by mouth in the morning. 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 02/10/2021 Pneumonia due to other virus not elsewhere classified 12/24/2002 04/29/2021 documented as of this encounter (statuses as of 02/08/2024) Immunizations Name Administration Dates Next Due COVID-19 [...] Sign Reading Time Taken Comments Blood Pressure 124/82 02/08/2024 8:26 AM EDT Pulse 68 02/08/2024 8:26 AM EDT Temperature - - Respiratory Rate 16 02/08/2024 8:26 AM EDT Oxygen Saturation - - Inhaled Oxygen Concentration - - Weight 130.6 kg (288 lb) 02/08/2024 8:26 AM EDT Height - - Body Mass Index 47.18 09/05/2023 12:31 PM EDT documented in this encounter Progress Notes * Kath Carlin PA-C - 02/08/2024 8:23 AM EDT 02/08/2024 Cardiology F/U: History of Present Illness: Mr. Dean is a 63 year old male who presents today for routine cardiology follow-up. Last clinic evaluation approximately 8 months ago with the undersigned. History includes: 1. 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 F/U echocardiograms demonstrated normal pericardium without pericardial effusion. 2. History of dilated aortic root measuring 4.7 cm and ascending aortic dilation measuring 4.1 cm. 3. inflammatory pulmonary disease for which he follows with SD Pul 4. Dyslipidemia 5. hepatic steatosis 6. Hypertension 7. Obesity 8. chronic diastolic HF controlled on low dose furosemide. 9. Chronic atypical chest pain, patient with diagnostic cardiac catheterization on March 23, 2021 at [facility] with Dr. Sigala demonstrating normal coronary arteries. Patient presents today feeling relatively well. Has spinal stimulator now. Helps with chronic back pain. Limited in his mobility. Not able to exercise. Walks with cane. Reports chronic but stable SOB. Weight is trending upward. Mild LE edema noted at times. No chest pain. No dizziness. No palpitations. Review of Systems: See HPI for pertinent [...] K13.79 Uvular hypertrophy K13.79 Esophageal reflux K21.9 Abnormal EKG R94.31 Elevated liver enzymes R74.8 Inflamed seborrheic keratosis L82.0 Multiple pigmented nevi D22.9 Dyslipidemia, goal LDL below 100 E78.5 Dilated aortic root (HCC) I77.810 Ascending aorta dilatation (HCC) I77.810 Chronic diastolic (congestive) heart failure (HCC) I50.32 Chest pain with normal coronary angiography R07.9 Chronic pain syndrome G89.4 Mild persistent asthma J45.30 Body mass index (BMI) of 45.0 to 49.9 in adult ([facility]) Z68.42 Moderate persistent asthma with exacerbation J45.41 Social History Tobacco Use Smoking status: Never Smokeless tobacco: Former Quit date: 04/21/2012 Tobacco comments: quit Vaping Use Vaping Use: Never used Substance Use Topics Alcohol use: Yes Alcohol/week: 5.0 standard drinks of alcohol Types: 6 12 oz of beer per [...] performed by Cristy Dobbs DO at [facility] COLONOSCOPY, DIAGNOSTIC (RECTUM) 11/26/2015 diverticulosis, repeat 10 yrs/COLONOSCOPY FLEXIBLE PROXIMAL DIAGNOSTIC performed by Cristy Dobbs DO at ENDOSCOPY [facility] DENTAL SURGERY PROCEDURE NEC Dental Surgery Procedure DRAINAGE OF HEART SAC 11/19/2002 [facility] EVAL NEUROSTIM PULSE GEN, W/ REPROGRAM N/A 02/02/2023 NEUROSTIMULATOR PULSE GENERATOR/ TRANSMITTER, WITH INTRAOPERATIVE OR SUBSEQUENT PROGRAMMING performed by Bishop Jung MD at OR [facility] IMPLANT EPIDURAL NEUROELECTRODES N/A 02/02/2023 PERCUTANEOUS IMPLANTATION NEUROSTIMULATOR EPIDURAL performed by Bishop Jung MD at OR [facility] IMPLANT SPINAL NEURORECEIVER N/A 02/02/2023 INSERTION OR REPLACEMENT SPINAL NEUROSTIMULATOR GENERATOR performed by Bishop Jung MD atOR [facility] INFORMATION 03/2021 Heart Cath. REMOVAL OF WRIST LESION Review of patient's allergies indicates: Allergen Reactions Beta Adrenergic Blockers Bradycardia Current Outpatient Medications Medication Sig Dispense Refill [...] 1 Capsule by mouth in the morning. [place]-3 Fatty Acids (OMEGA 3 500) 500 MG CAPS Take by mouth. Azelastine HCl 0.1 % nasal spray USE 2 SPRAY(S) IN EACH NOSTRIL TWICE DAILY 90 mL 1 SUMAtriptan Succinate 50 MG Oral Tablet [...] 3 mL before bedtime. 120 mL 5 Potassium Chloride ER 10 MEQ Oral [...] of breath or wheezing 1080 mL 0 Amitriptyline HCl 25 MG Oral Tablet (Elavil) TAKE 1 TABLET AT BEDTIME 90 Tablet 3 Albuterol Sulfate HFA 108 (90 Base) MCG/ACT Inhalation Aerosol Solution Inhale 2 Puffs by mouth every 4 hours as needed for Wheezing. 54 g 3 Levothyroxine Sodium 125 MCG Oral Tablet (Levoxyl) Take 1 Tablet by mouth in the morning. (at least30 min prior to breakfast or other meds). 90 Tablet 0 Lisinopril 40 MG Oral Tablet TAKE 1 TABLET IN THE MORNING 90 Tablet 3 Pantoprazole Sodium 40 MG Oral Tablet Delayed Release (Protonix) TAKE 1 TABLET IN THE MORNING 90 Tablet 3 predniSONE 20 MG Oral Tablet (Deltasone) 2 Tablets. Tamsulosin HCl 0.4 MG Oral Capsule (Flomax) Take 1 Capsule by mouth in the morning. 90 Capsule 3 Furosemide 40 MG Oral Tablet (Lasix) TAKE ONE AND ONE-HALF TABLETS IN THE MORNING 135 Tablet 3 Current Facility-Administered Medications Medication Dose Route Frequency Provider Last Rate Last Admin Albuterol Sulfate (Proventil) (2.5 MG/3ML) 0.083% inhalation solution 2.5 mg 2.5 mg Nebulizer Once PRN Farooq Rodríguez DO 2.5 mg at 08/16/23 1243 OBJECTIVE/PHYSICAL EXAMINATION: BP 124/82 | Pulse 68 | Resp 16 | Wt 130.6 kg (288 lb) | BMI 47.18 kg/m | BSA 2.46 m On my repeat 124/78 BP Readings from Last 4 Encounters: 01/02/24 118/70 09/28/23 128/68 09/05/23 122/80 06/12/23 136/80 Wt Readings from Last 3 Encounters: 01/02/24 129.1 kg (284 lb 9.6 oz) 09/28/23 125.7 kg (277 lb 3.2 oz) 09/05/23 126.6 kg (279 lb 1.9 oz) General: NAD. A&Ox3. Eyes: Conjunctiva are pink and non-injected, sclera clear Neck: No overt JVD. Chest: Normal respiratory effort Lungs: Clear to auscultation Cardiac Exam: RRR. No murmurs, rubs, or gallops Abdomen: Distended. Hard. Obese. Extremities: 1+ pitting ankle and pretibial edema around sock line Neuro: Grossly normal exam Psych: Appropriate affect and insight. DATA: EKG performed today and reviewed personally: NSR with incomplete RBBB Possible old inferior infarct No significant change Underlying artifact noted due to spinal stimulator. Echo report reviewed dated May 2023: Interpretation [...] reviewed dated March 23, 2021 at [facility], performed by Dr. Sigala: Coronary angiography: [...] are stable without significant interval change. Outpatient alarm security or surveillance monitor report reviewed dated 02/11/21: CONCLUSIONS: Preliminary [...] 9.0 secs with an avg rate of 140bpm. Some episodes of Supraventricular Tachycardia may be [...] aortic root sizes have increased slightly Outpatient alarm security or surveillance monitor report reviewed dated November 2019: Duration [...] dizziness seemto correlate with normal sinus rhythm. EKG performed [...] at thattime. Latest Reference Range & Units 01/02/24 10:28 Sodium 135 - 146 mmol/L 142 Potassium 3.5 - 5.1 mmol/L 3.9 Chloride 98 - 107 mmol/L 101 CO2 22 - 32 mmol/L 29 BUN 6 - 20 mg/dL 14 Creatinine 0.6 - 1.2 mg/dL 1.1 Estimated Glomerular Filtration Rate >=60 mL/min 81 Anion Gap 7 - 15 mmol/L 12 Glucose 70 - 120 mg/dL 98 Calcium 8.4 - 10.2 mg/dL 10.3 (H) (H): Data is abnormally high Latest Reference Range & Units 01/16/23 10:09 Triglycerides <=174 mg/dL 127 Cholesterol <200 mg/dL 156 Non-HDL Cholesterol <=159 mg/dL 120 HDL Cholesterol >39 mg/dL 36 (L) LDL Cholesterol <=129 mg/dL 95 (L): Data is abnormally low IMPRESSION and PLAN: 63 year old male Prior history of chest pain, non cardiac - normal coronary arteries per catheterization 03/23/21 after equivocal stress testing. No recent symptoms. Hypertension - controlled today Bradycardia - asymptomatic. Stable. No significant pauses or bradyarrhythmias on prior monitor. Avoid beta blockers History of prior cardiac tamponade /effusion S/P pericardiocentesis in 2002- No recurrence per serial echocardiograms. Stable cardiovascular signs/symptoms Chronic diastolic HF -weight trending upward. Monitor fluid Dyslipidemia - controlled Obesity - continued weight loss recommended. Dilated aortic root, stable at 4.7, ascending aorta measuring 4.1 cm Paroxysmal SVT, one episode lasting 9 seconds may be PAF, but difficult to determine. No recurrence PLAN: Stable cardiac symptoms. BP controlled Weight trending upward with mild intermittent LE edema. Continue furosemide 40 mg - 1.5 tabs daily. Increase to 2 tablets daily for increased weight/swelling. Continue spironolactone. Weight loss encouraged. CHF tools discussed including daily weights, salt/sodium/fluid restriction, and use of diuretic protocol. Due for updated lipid panel. Ordered Repeat echo at 1 year interval given moderately dilated aortic root/ascending aorta. The patient is to continue all current medications as listed above. No changes were made at today'isit. Patient is being evaluated in the cardiology office for ongoing care/risk management for dilated aortic root; HFpEF. I spent a total of 25 minutes on the date of service in preparation, delivery, and documentation ofthe care provided to Placido Dean excluding any time spent in the performance of separately billed services. The patient agrees to the above plan and will call with additional questions or concerns. ER with all emergencies advised. Follow-up: Return in about 6 months (around 08/10/2024). | Check-out note: Schedule echo June 2024 Kath Carlin PA-C Department of Cardiology This chart was completed in part utilizing [employer] Speech Voice Recognition Software. Grammatical errors, random [...] Nursing Notes * Trey Marquis RN - 02/08/2024 8:22 AM EDT Examination Room: room 1 Name: Placido Dean Date of : (1960). Reason for Visit: for follow up Interim Hospitalization(s): denies Problems/Concerns: denies Chest Pain/SOB: occ [facility] Discussed: Yes [facility] a way you can [...] [address] [place] [address] [place] [address] Yusra Chadwick PA-C [address] [place] [address] [place] [address] 06/23/2024 11:00 AM EDT Cardiac Studies Cardiac Studies, [facility] [address] [facility] [place] [address] 07/02/2024 11:40 AM EDT Office Visit Family Practice [facility] [address] [place] [address] Farooq Rodríguez, DO [address] [facility] [address] 08/15/2024 9:00 AM EDT Office Visit Cardiology, [facility] [address] [place] [address] Kath Carlin PA-C [address] [place] [address] 02/04/2025 11:00 AM EDT Scheduled Telephone [facility] [place] [address] [place] [address] Therapy, Nurse Pain [address] [place] [address] Scheduled Orders Name Type Priority Associated Diagnoses Orde r Schedule EKG COMPLETE (TRACING AND INTERP) EKG Routine Chronic diastolic (congestive) heart failure (HCC) Ordered: 02/08/2024 LIPID PANEL WITH DIRECT LDL IF TG IS HIGH Lab Routine Chronic diastolic (congestive) heart failure (HCC) Dyslipidemia, goal LDL below 100 Expected: 02/08/2024, Expires: 02/07/2025 ECHO, COMPLETE (2D), TRANS-THORACIC Echocardiology Routine Chronic diastolic (congestive) heart failure (HCC) Dyslipidemia, goal LDL below 100 Ascending aorta dilatation (HCC) Dilated aortic root (HCC) HTN, goal below 140/90 Expected: 06/23/2024 (Approximate), Expires: 02/07/2025 Scheduled Procedures Name Priority Associated Diagnoses Date/Ti [...] 08/11/2015, 08/19/2010, 08/19/2010 Lipid Panel 01/16/2028 01/16/2023, 030 11/2021, 12/22/2020, Additional history exists DTaP,Tdap,and Td [...] this encounter Medical Devices Implanted Type Area Radiologic Technology Instructor Device Identifier Shelf Expiration Date Model / Serial / Lot Medtronic Spinal Stimulator 1.8 Lead Implanted:Qty: 1 on 02/02/2023 by Bishop Jung MD at OR [facility] N/A: Spine Lumbar 10/18/2026 [id number] / / [id number] Medtronic Spinal Stimulator Lead 1.8 Implanted:Qty: 1 on 02/02/2023 by Bishop Jung MD at OR [facility] N/A: Spine Lumbar 10/18/2026 [id number] / / [id number] Envelope Tyrx Med Antibacteril - [id number] Implanted:Qty: 1 on 02/02/2023 by Bishop Jung MD at OR [facility] N/A: Spine Lumbar [employer] 08/21/2023 [id number] / / documented as of this encounter Visit Diagnoses Diagnosis HTN, goal below 140/90- Primary Unspecified essential hypertension Chronic diastolic (congestive) heart failure (HCC) Dyslipidemia, goal LDL below 100 Other and unspecified hyperlipidemia Ascending aorta dilatation (HCC) Thoracic aortic ectasia Dilated aortic root (HCC) Thoracic aortic ectasia documented in this encounter Care Teams Wallpaper Scraper Relationship Specialty Start Date End Date Farooq Rodríguez DO [address] [place] [address] PCP - General Family Medicine 08/22/19 documented as of this encounter"
--- OUTSIDE RECORDS SUMMARY | 2024-04-06 00:03 | External Medical Summary | Summary of Care ---
Author Name Unknown Organization [facility] Address [address] [place] [address] Phone [phone] Care Team Providers Care Cartographic Aide Name Role Phone MarcosFarooq Belle PEÑA Primary Care Provider [phone] Encounter Details Date Type Department Care Team (Late st Contact Info) Description 02/01/2024 Result Scan Unspecified Department <No scans attached> Allergies Active Allergy Reactions Criticality Noted Date Comments Beta Adrenergic Blockers Bradycardia High 09/20/2023 documented as of this encounter (statuses as of 02/05/2024) Medications Medication Sig Dispensed Refills Start Date [...] by mouth in the morning. 0 Active [place]-3 Fatty Acids (OMEGA 3 500) 500 [...] as of this encounter (statuses as of 02/05/2024) Active Problems Problem Noted Date Diagnosed Date [...] as of this encounter (statuses as of 02/05/2024) Resolved Problems Problem Noted Date Diagnosed Date [...] as of this encounter (statuses as of 02/05/2024) Immunizations Name Administration Dates Next Due COVID-19 mRNA, LNP-s, No Pre serve, 2-Dose Series ([employer]) 04/09/2021,03/19/2021 Pneumococcal Conjugate Vacc, 13 Valent (Prevnar) [...] Used Date Smoking Tobacco: Never Smokeless Tobacco: Current Last attempted to quit: 04/21/2012 Comments:quit Alcohol Use Standard Drinks/Week Comments [...] Team (Late st Contact Info) Description 02/05/2024 11:00 AM EDT Scheduled Telephone Interventional Pain Ctr [facility] [address] [address] Therapy, Nurse Pain [address] [address] 02/08/2024 8:30 AM EDT Office Visit Cardiology, [facility] [address] [address] Kath Carlin PA-C [address] [place] [address] 05/13/2024 1:30 PM EDT Office Visit Dermatology, [place] [address] [place] [address] [place] [address] Yusra Chadwick PA-C [address] [place] [address] [place] [id number] 07/02/2024 11:40 AM EDT Office Visit Family Practice [place] [address] [facility] [place] [address] Farooq Rodríguez DO [address] [facility] [place] [address] Scheduled Procedures Name Priority Associated Diagnoses Date/Ti [...] this encounter Medical Devices Implanted Type Area Feed Mill Manager Device Identifier Shelf Expiration Date Model / Serial / Lot Medtronic Spinal Stimulator 1.8 Lead Implanted:Qty: 1 on 02/02/2023 by Bishop Jung MD at OR [facility] N/A: Spine Lumbar 10/18/2026 [id number] / / [id number] Medtronic Spinal Stimulator Lead 1.8 Implanted:Qty: 1 on 02/02/2023 by Bishop Jung MD at OR [facility] N/A: Spine Lumbar 10/18/2026 [id number] / / [id number] Envelope Tyrx Med Antibacteril - [id number] Implanted:Qty: 1 on 02/02/2023 by Bishop Jung MD at OR [facility] N/A: Spine Lumbar MEDTRONIC [employer] 08/21/2023 [id number] / / documented as of this encounter Procedures Procedure Name Priority Date/Time Associated Diagnosis Comments OUTSIDE LAB RESULTS 02/01/2024 documented in this encounter Results * OUTSIDE LAB RESULTS (02/01/2024) 02/01/2024 No Physician Data Unknown LABORATORY documented in this encounter Care Teams Cartographic Aide Relationship Specialty Start Date End Date Farooq Rodríguez DO [address] [place] [address] PCP - General Family Medicine 08/22/19 documented as of this encounter
--- OUTSIDE RECORDS SUMMARY | 2024-04-06 00:03 | External Medical Summary | Summary of Care ---
Author Name Unknown Organization [facility] Address [address] [place] [address] Phone [phone] Care Team Providers Care Casing Inspector Name Role Phone Marcos Farooq Belle PEÑA Primary Care Provider [phone] Encounter Details Date Type Department Care Team (Latest Contact Info) Description 02/04/2024 9:39 AM EDT - 02/04/2024 11:59 PM EDT Hospital Encounter Radiology Film File [address] [place] [address] Arrived Discharge Disposition: Home - Self Care Allergies Active Allergy Reactions Criticality Noted Date [...] by mouth in the morning. 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 Pneumonia due to other virus not elsewhere classified 12/24/2002 04/29/2021 documented as of this encounter (statuses as of 02/05/2024) Immunizations Name Administration Dates Next Due COVID-19 mRNA, LNP-s, No Pre serve, 2-Dose Series ([employer]) 04/09/2021,03/19/2021 Pneumococcal Conjugate Vacc, 13 Valent (Prevnar) [...] 02/08/2024 8:30 AM EDT Office Visit Cardiology, [facility] [address] [address] Kath Carlin PA-C [address] [address] 05/13/2024 1:30 PM EDT Office Visit Dermatology, [place] [address] [place] [address] [place] [address] Yusra Chadwick PA-C [address] [place] [address] [place] [address] 07/02/2024 11:40 AM EDT Office Visit Family Practice [facility] 200 [facility] [place] [address] Farooq Rodríguez, DO 200 [facility] [place] [address] 02/04/2025 11:00 AM EDT Scheduled Telephone Interventional Pain Ctr Chichi Osei [address] [place] [address] Therapy, Nurse Pain [address] [place] [address] Scheduled Procedures Name Priority Associated Diagnoses Date/Ti [...] this encounter Medical Devices Implanted Type Area Ui Ux Engineer Device Identifier Shelf Expiration Date Model / Serial / Lot Medtronic Spinal Stimulator 1.8 Lead Implanted:Qty: 1 on 02/02/2023 by Bishop Jung MD at OR [facility] N/A: Spine Lumbar 10/18/2026 [id number] / / [id number] Medtronic Spinal Stimulator Lead 1.8 Implanted:Qty: 1 on 02/02/2023 by Bishop Jung MD at OR [facility] N/A: Spine Lumbar 10/18/2026 [id number] / / [id number] Envelope Tyrx Med Antibacteril - [id number] Implanted:Qty: 1 on 02/02/2023 by Bishop Jung MD at OR [facility] N/A: Spine Lumbar MEDTRONIC [employer] 08/21/2023 [id number] / / documented as of this encounter Procedures Procedure Name Priority Date/Time Associated Diagnosis Comments DERM EXAM - DERM (IMAGES ONLY, NO REPORT) Routine 02/04/2024 9:39 AM EDT Skin exam, screening for cancer Multiple nevi Inflamed seborrheic keratosis Seborrheic keratosis documented in this encounter Results * DERM EXAM - DERM (IMAGES ONLY, NO REPORT) (02/04/2024 9:39 AM EDT) Narrative Scheduling, Silent - 02/04/2024 9:39 AM EDT This is an imaging study not interpreted or resulted by a [facility] or [facility] contracted radiologist. Yusra Chadwick PA-C RADIOLO GY (RAD GENERAL) documented in this encounter Care Teams Casing Inspector Relationship Specialty Start Date End Date Farooq Rodríguez DO [address] [place] [address] PCP - General Family Medicine 08/22/19 documented as of this encounter
--- OUTSIDE RECORDS SUMMARY | 2024-04-06 00:03 | External Medical Summary | Summary of Care ---
Author Name Unknown Organization [facility] Address [address] [place] [address] Phone [phone] Care Team Providers Care Supervisor Cemetery Workers Name Role Phone Farooq Rodríguez DO Primary Care Provider [phone] Reason for Visit * Reason Onset Date Comments Follow Up 02/05/[address] Jung Medtronic Encounter Details Date Type Department Care Team (Late st Contact Info) Description 02/05/2024 11:00 AM EDT Scheduled Telephone [facility] [place] [address] [place] [address] Therapy, Nurse Pain [address] [place] [address] Allergies Active Allergy Reactions Criticality Noted Date [...] by mouth in the morning. 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 Advised to call Medtronic [facility] for reprogramming. If not doing well after reprogramming to call [facility] for office visit. documented in this encounter Plan of Treatment Upcoming Encounters Date Type Department Care Team (Late st Contact Info) Description 02/08/2024 8:30 AM EDT Office Visit Cardiology, [address] [place] [address] Kath Carlin PA-C [address] [place] [address] 05/13/2024 1:30 PM EDT Office Visit Dermatology, [place] [address] [place] [address] [place] [address] Yusra Chadwick PA-C [address] [place] [address] [place] [place] [address] 07/02/2024 11:40 AM EDT Office Visit Family Practice [facility] 200 [facility] [place] [address] Farooq Rodríguez, 200 [facility] [place] [address] 02/04/2025 11:00 AM EDT Scheduled Telephone Interventional Pain Ctr [place] [address] [place] [address] Therapy, Nurse Pain [address] [place] [address] Scheduled Procedures Name Priority Associated Diagnoses Date/Ti [...] this encounter Medical Devices Implanted Type Area Pit Inspector Device Identifier Shelf Expiration Date Model / Serial / Lot Medtronic Spinal Stimulator 1.8 Lead Implanted:Qty: 1 on 02/02/2023 by Bishop Jung MD at OR [facility] N/A: Spine Lumbar 10/18/2026 [id number] / / [id number] Medtronic Spinal Stimulator Lead 1.8 Implanted:Qty: 1 on 02/02/2023 by Bishop Jung MD at OR [facility] N/A: Spine Lumbar 10/18/2026 [id number] / / [id number] Envelope Tyrx Med Antibacteril - [id number] Implanted:Qty: 1 on 02/02/2023 by Bishop Jung MD at OR [facility] N/A: Spine Lumbar MEDTRONIC [employer] 08/21/2023 [id number] / / documented as of this encounter Care Teams Supervisor Cemetery Workers Relationship Specialty Start Date End Date Farooq Rodríguez DO [address] [place] [address] PCP - General Family Medicine 08/22/19 documented as of this encounter
--- OUTSIDE RECORDS SUMMARY | 2024-04-06 00:04 | External Medical Summary | Summary of Care ---
Author Name Unknown Organization [facility] Address [address] [place] [address] Phone [phone] Care Team Providers Care International Student Advisor Name Role Phone Farooq Rodríguez DO Primary Care Provider [phone] Reason for Visit * Reason Comments Outpatient Testing Encounter Details Date Type Department Care Team (Late st Contact Info) Description 01/02/2024 10:40 AM EST Laboratory Laboratory [facility] [address] [place] [phone] [facility] [address] [facility] [place] [address] Encounter for long-term (current) use of other medications; Acquired hypothyroidism; Chronic diastolic (congestive) heart failure (HCC); BPH with obstruction/lower urinary tract symptoms; HTN, goal below 140/90 Allergies Active Allergy Reactions Criticality Noted Date Comments Beta Adrenergic Blockers Bradycardia High 09/20/2023 documented as of this encounter (statuses as of 01/02/2024) Medications Medication Sig Dispensed Refills Start Date [...] by mouth in the morning. 0 Active [place]-3 Fatty Acids (OMEGA 3 500) 500 MG CAPS Take by mouth. 0 Active Azelastine HCl 0.1 % nasal sprayIndications:Chr onic rhinitis USE 2 SPRAY(S) IN EACH NOSTRIL TWICE DAILY 90 mL 1 04/03/2019 Active Furosemide 40 MG Oral Tablet (Lasix) Take 1.5 Tablets by mouth in the morning. 135 Tablet 3 12/12/2022 Active SUMAtriptan Succinate 50 MG Oral [...] the morning. 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 Pneumonia due to other virus not elsewhere classified 12/24/2002 04/29/2021 documented as of this encounter (statuses as of 01/02/2024) Immunizations Name Administration Dates Next Due COVID-19 mRNA, LNP-s, No Pre serve, 2-Dose Series ([employer]) 04/09/2021,03/19/2021 Pneumococcal Conjugate Vacc, 13 Valent (Prevnar) [...] Care Team (Late st Contact Info) Description 02/04/2024 9:20 AM EDT Office Visit Dermatology, [place] [address] [place] [address] Yusra Chadwick PA-C [address] [place] [address] 02/08/2024 8:30 AM EDT Office Visit Cardiology, [facility] [address] [address] Kath Carlin PA-C [address] [place] [address] 07/02/2024 11:40 AM EDT Office Visit Family Practice [facility] [address] [facility] [place] [address] Farooq Rodríguez DO [address] [facility] [place] [address] Pending Results Name Type Priority Associated Diagnoses Date /Time VITAMIN B12 Lab Routine Encounter for long-term (current) use of other medications 01/02/2024 10:28 AM EST TSH WITH FREE T4 IF INDICATED Lab Routine Acquired hypothyroidism 01/02/2024 10:28 AM EST BASIC METABOLIC PANEL Lab Routine Chronic diastolic (congestive) heart failure (HCC) 01/02/2024 10:28 AM EST PSA Lab Routine BPH with obstruction/lower urinary tract symptoms 01/02/2024 10:28 AM EST ALBUMIN / CREATININE RATIO, URINE Lab Routine HTN, goal below 140/90 01/02/2024 10:31 AM EST Scheduled Procedures Name Priority Associated [...] this encounter Medical Devices Implanted Type Area Spot Facer Device Identifier Shelf Expiration Date Model / Serial / Lot Envelope Tyrx Med Antibacteril - [id number] Implanted:Qty: 1 on 02/02/2023 by Bishop Jung MD at OR [facility] N/A: Spine Lumbar MEDTRONIC [employer] 08/21/2023 [id number] / / documented as of this encounter Visit Diagnoses Diagnosis Encounter for long-term (current) use of other medications Acquired hypothyroidism Unspecified hypothyroidism Chronic diastolic (congestive) heart failure (HCC) BPH with obstruction/lower urinary tract symptoms Hypertrophy of prostate with urinary obstruction and other lower urinary tract symptoms (LUTS) HTN, goal below 140/90 Unspecified essential hypertension documented in this encounter Care Teams International Student Advisor Relationship Specialty Start Date End Date Farooq Rodríguez DO [address] [place] [address] PCP - General Family Medicine 08/22/19 documented as of this encounter
--- OUTSIDE RECORDS SUMMARY | 2024-04-06 00:04 | External Medical Summary | Summary of Care ---
Author Name Unknown Organization [facility] Address [address] [place] [address] Phone [phone] Care Team Providers Care Wildlife Ecology Professor Name Role Phone Kelly Mitchell DO Primary Care Provider [phone] Reason for Visit * Reason Comments eRx-Medication Refill Encounter Details Date Type Department Care Team (Late st Contact Info) Description 01/01/2024 Refill Family Practice [facility] 200 [facility] [place] [address] Kelly Mitchell DO 200 [facility] [place] [address] Gastroesophageal reflux disease without esophagitis Allergies No [...] by mouth in the morning. 0 Active [place]-3 Fatty Acids (OMEGA 3 [...] 0 11/27/2023 Active Lisinopril 40 MG Oral TabletIndications: HTN, goal below 140/90 TAKE 1 TABLET IN THE MORNING 90 Tablet 3 12/20/2023 Active Pantoprazole Sodium 40 MG Oral Tablet Delayed Release (Protonix)Indicati ons:Gastroesophage al reflux disease without esophagitis TAKE 1 TABLET IN THE MORNING 90 Tablet 3 01/02/2024 Active Pantoprazole Sodium 40 MG Oral Tablet Delayed Release (Protonix)Indicati ons:Gastroesophage al reflux disease without esophagitis TAKE 1 TABLET IN THE MORNING 90 Tablet 1 07/05/2023 Discontinued Hospital, Clinic, or Other Facility Administered Medication Ordered Dose Route Frequency Start Date End Date Status Albuterol Sulfate (Proventil) (2.5 MG/3ML) 0.083% inhalation solution 2.5 mgIndications:Mild persistent asthma, unspecified whether complicated 2.5 mg NEBULIZER ONCE PRN 06/12/2023 06/11/2024 Active documented as of this encounter (statuses as of 01/02/2024) Active Problems Problem Noted Date Diagnosed Date Body mass index (BMI) of 45.0 to 49.9 in adult 1 12/01/2022 Overview: Per Obesity protocol - Per Obesity protocol Mild persistent asthma 06/12/2023 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 0 [...] mRNA, LNP-s, No Pre serve, 2-Dose Series ([employer]) 04/09/2021,03/19/2021 Pneumococcal Conjugate Vacc, 13 Valent (Prevnar) [...] Miscellaneous Notes * Telephone Encounter - Robert Wharton RPh - 01/02/2024 8:11 AM ESTSigned Prescriptions: Disp Refills Pantoprazole Sodium 40 MG Oral Tablet Paola*90 Tab*3 Sig: TAKE 1 TABLET IN THE MORNINGAuthorizing Provider: KELLY MITCHELL User: ROBERT WHARTON----- documented in this encounter Plan of Treatment Upcoming Encounters Date Type Department Care Team (Late st Contact Info) Description 01/02/2024 10:00 AM EST Office Visit Family Practice [facility] [place] 200 [place] [address] Kelly Mitchell, DO [address] [place] [address] 02/04/2024 9:20 AM EDT Office Visit Dermatology, [place] [address] [place] [address] [place] [address] Yusra Chadwick PA-C [address] [place] [address] [place] [address] 02/08/2024 8:30 AM EDT Office Visit Cardiology, [facility] [address] [place] [address] Kath Carlin PA-C [address] [place] [address] Scheduled Procedures Name Priority Associated Diagnoses Date/Ti [...] this encounter Medical Devices Implanted Type Area Insole Department Worker Device Identifier Shelf Expiration Date Model / Serial / Lot Envelope Tyrx Med Antibacteril - [id number] Implanted:Qty: 1 on 02/02/2023 by Bishop Jung MD at OR [facility] N/A: Spine Lumbar [employer] 08/21/2023 [id number] / / documented as of this encounter Visit Diagnoses Diagnosis Gastroesophageal reflux disease without esophagitis Esophageal reflux documented in this encounter Care Teams Wildlife Ecology Professor Relationship Specialty Start Date End Date Kelly Mitchell DO [address] [place], [place] [address] PCP - General Family Medicine 08/22/19 documented as of this encounter
--- OUTSIDE RECORDS SUMMARY | 2024-04-06 00:04 | External Medical Summary ---
Author Name Unknown Address Unknown Organization K09[facility] [place] [address] Laboratory Report Ordering Provider Test Date Status STEPHEN MENDOZA 01/02/2024 10:28:54 Final Observation Date Value Abnormality Reference (Units ) Status BUN 01/02/2024 10:28:54 14 6-20 (mg/dL) Final Creatinine 01/02/2024 10:28:54 1.1 0.6-1.2 (mg/dL) Final Glomerular filtration rate/1.73 sq M.predicted [Volume Rate/Area] in Serum, Plasma or Blood by Creatinine-based formula (CKD-EPI) 01/02/2024 10:28:54 81 >=60 (mL/min) Final eGFR is calculated based on the CKD-EPI 2020 equation SODIUM 01/02/2024 10:28:54 142 135-146 (m mol/L) Final Potassium 01/02/2024 10:28:54 3.9 3.5-5.1 (m mol/L) Final Cl 01/02/2024 10:28:54 101 98-107 (mm ol/L) Final CO2 01/02/2024 10:28:54 29 22-32 (mmo l/L) Final Anion gap 01/02/2024 10:28:54 12 7-15 (mmol /L) Final Glucose 01/02/2024 10:28:54 98 70-120 (mg /dL) Final Calcium 01/02/2024 10:28:54 10.3 Above high normal 8. 4-10.2 (mg/dL) Final Performing Location [facility] [place] [address]
--- OUTSIDE RECORDS SUMMARY | 2024-04-06 00:04 | External Medical Summary ---
Author Name Unknown Address Unknown Organization K01[facility] [address] [place] [address] Laboratory Report Ordering Provider Test Date Status CLAY HAYES 01/02/2024 10:28:54 Final Observation Date Value Abnormality Reference (Units ) Status Vitamin B12 01/02/2024 10:28:54 [phone] (pg/mL) Final Performing Location [facility] [address] [place] [address]
--- OUTSIDE RECORDS SUMMARY | 2024-04-06 00:04 | External Medical Summary ---
Author Name Unknown Address Unknown Organization K01:[facility] [address] [place] [address] Laboratory Report Ordering Provider Test Date Status STEPHEN MENDOZA 01/02/2024 10:28:54 Final Observation Date Value Abnormality Reference (Units ) Status PSA 01/02/2024 10:28:54 0.58 <4.10 (ng/ mL) Final Performing Location [facility] [address] [place] [address]
--- OUTSIDE RECORDS SUMMARY | 2024-04-06 00:04 | External Medical Summary | Summary of Care ---
Author Name Unknown Organization [facility] Address [address] [facility] [place] [address] Phone [phone] Care Team Providers Care Mobile Solutions Architect Name Role Phone Farooq Rodríguez DO Primary Care Provider [phone] Reason for Visit * Reason Comments Re-Check Pt here today for a 6m return. Pt denies any concerns. Encounter Details Date Type Department Care Team (Late st Contact Info) Description 01/02/2024 10:00 AM EST Office Visit [facility] [address] [place] [address] Farooq Rodríguez DO [address] [facility] [place] [address] BPH with obstruction/lower urinary tract symptoms*; Chronic diastolic (congestive) heart failure (HCC); Moderate persistent asthma with exacerbation; HTN, goal below 140/90; Acquired hypothyroidism; Dyslipidemia, goal LDL below 100; Gastroesophageal reflux disease without esophagitis Allergies Active [...] by mouth in the morning. 0 Active [place]klin-3 Fatty Acids (OMEGA 3 500) 500 MG [...] the morning. 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 Pneumonia due to other virus not elsewhere classified 12/24/2002 04/29/2021 documented as of this encounter (statuses as of 01/02/2024) Immunizations Name Administration Dates Next Due COVID-19 mRNA, LNP-s, No Pre serve, 2-Dose Series (Mezzobit) 04/09/2021,03/19/2021 Pneumococcal Conjugate Vacc, 13 Valent (Prevnar) [...] Tobacco: Current Last attempted to quit: 04/21/2012 Tobacco Cessation:Ready to Q uit: Not Asked; Counseling Given: Not Answered Comments:quit Alcohol Use Standard [...] Reading Time Taken Comments Blood Pressure 118/70 01/02/2024 9:41 AM EST Pulse 70 01/02/2024 9:41 AM EST Temperature 36.6 C (97.8 F) 01/02/2024 9:41 AM ES T Respiratory Rate - - Oxygen Saturation 96% 01/02/2024 9:41 AM EST Inhaled Oxygen Concentration - - Weight 129.1 kg (284 lb 9.6 oz) 01/02/2024 9:41 AM EST Height - - Body Mass Index 46.63 09/05/2023 12:31 PM EDT documented in this encounter Progress Notes * Farooq Rodríguez, DO - 01/02/2024 10:09 AM EST Subjective: Placido Dean is a 63 year old male. Chief Complaint Patient presents with Re-Check Pt here today for a 6m return. Pt denies any concerns. HPI: PT here in follow-up. Still going through a cough. HAppens here and there. Can wake him up in his sleep. HAppens every night. Does not bring anything up just dry. Some wheezing. IT can happen during the day - 4-5 times per day. HAppens when he talks more. HE is taking PPI, inhalers and allergy medications. No PND. Some wheezing with it. Does spray nose before bed and helps congestion but not cough. Whistles with breathing. We discussed going back to pulm but wants to hold off. PFTs reviewed. Will get blood work today. PMHx, meds, and allergies reviewed Patient Active [...] (BMI) of 45.0 to 49.9 in adult ([facility]) Z68.42 Moderate persistent asthma with exacerbation J45.41 Current Outpatient Medications Medication Sig Dispense Refill [...] 1 Capsule by mouth in the morning. [place]-3 Fatty Acids (OMEGA 3 500) 500 MG CAPS Take by mouth. Azelastine HCl 0.1 % nasal spray USE 2 SPRAY(S) IN EACH NOSTRIL TWICE DAILY 90 mL 1 Furosemide 40 MG Oral Tablet (Lasix) Take 1.5 Tablets by mouth in the morning. 135 Tablet 3 SUMAtriptan Succinate 50 MG Oral [...] 20 MG Oral Tablet (Deltasone) 2 Tablets. Current Facility-Administered Medications Medication Dose Route Frequency Provider Last Rate Last Admin Albuterol Sulfate (Proventil) (2.5 MG/3ML) 0.083% inhalation solution 2.5 mg 2.5 mg Nebulizer Once PRN Farooq Rodríguez DO 2.5 mg at 08/16/23 1243 Review of patient's allergies indicates: Allergen Reactions Beta Adrenergic Blockers Bradycardia OBJECTIVE: BP 118/70 | Pulse 70 | Temp 36.6 C (97.8 F) (Tympanic) | Wt 129.1 kg (284 lb 9.6 oz) | SpO2 96%| BMI 46.63 kg/m | BSA 2.44 m Estimated body mass index is 46.63 kg/m as calculated from the following: Height as of 09/05/23: 1.664 m (5' 5.51"). Weight as of this encounter: 129.1 kg (284 lb 9.6 oz). BP Readings from Last 3 Encounters: 01/02/24 118/70 09/28/23 128/68 09/05/23 122/80 Wt Readings from Last 3 Encounters: 01/02/24 129.1 kg (284 lb 9.6 oz) 09/28/23 125.7 kg (277 lb 3.2 oz) 09/05/23 126.6 kg (279 lb 1.9 oz) ROS: Negative except for above PHYSICAL EXAM: General: alert, healthy, and no distress Head: Normocephalic, No masses, lesions, tenderness or abnormalities Heart: regular rate & rhythm, no murmur, and no gallops Lungs: chest symmetric with normal AP diameter, no chest deformities noted, no chest wall tenderness, lungs clear to auscultation ASSESSMENT/Plan BPH with obstruction/lower urinary tract symptoms (Primary) - Tamsulosin HCl 0.4 MG Oral Capsule (Flomax); Take 1 Capsule by mouth in the morning. Chronic diastolic (congestive) heart failure (HCC) Moderate persistent asthma with exacerbation HTN, goal below 140/90 Acquired hypothyroidism Dyslipidemia, goal LDL below 100 Gastroesophageal reflux disease without esophagitis Mutliple chronic stable problems discussed. Continue Protonix at 40 mg daily. Wants to hold off on seeing pulm for now. Follow-up: Return in about 6 months (around 07/02/2024). | Check-out note: Blood work today Follow-up: Return in about 6 months (around 07/02/2024). | Check-out note: Blood work today The above was discussed and understanding was expressed. Farooq Rodríguez DO documented in this encounter Nursing Notes * Carmelina Hagen MED ASSIST - 01/02/2024 9:41 AM EST Chief Complaint Patient presents with Re-Check Pt here today for a 6m return. Pt denies any concerns. documented in this encounter Plan of Treatment Upcoming Encounters Date Type Department Care Team (Late st Contact Info) Description 02/04/2024 9:20 AM EDT Office Visit Dermatology, [facility] [address] [place] [address] Yusra Chadwick PA-C [address] [place] [address] 02/08/2024 8:30 AM EDT Office Visit Cardiology, [facility] [address] [place] [address] Kath Carlin PA-C [address] [place] [address] 07/02/2024 11:40 AM EDT Office Visit [facility] [address] [place] [address] Farooq Rodríguez DO [address] [facility] [place] [address] Scheduled Procedures Name Priority Associated Diagnoses Date/Ti [...] this encounter Medical Devices Implanted Type Area Vision Therapist Device Identifier Shelf Expiration Date Model / Serial / Lot Envelope Tyrx Med Antibacteril - [id number] Implanted:Qty: 1 on 02/02/2023 by Bishop Jung MD at OR [facility] N/A: Spine Lumbar [employer] 08/21/2023 [id number] / / documented as of this encounter Visit Diagnoses Diagnosis BPH with obstruction/lower urinary tract symptoms- Primary Hypertrophy of prostate with urinary obstruction and other lower urinary tract symptoms (LUTS) Chronic diastolic (congestive) heart failure (HCC) Moderate persistent asthma with exacerbation Unspecified asthma, with exacerbation HTN, goal below 140/90 Unspecified essential hypertension Acquired hypothyroidism Unspecified hypothyroidism Dyslipidemia, goal LDL below 100 Other and unspecified hyperlipidemia Gastroesophageal reflux disease without esophagitis Esophageal reflux documented in this encounter Care Teams Mobile Solutions Architect Relationship Specialty Start Date End Date Farooq Rodríguez DO [address] [place] [address] PCP - General Family Medicine 08/22/19 documented as of this encounter
--- OUTSIDE RECORDS SUMMARY | 2024-04-06 00:04 | External Medical Summary | Summary of Care ---
Author Name Unknown Organization [facility] Address [address] [facility] [place] [address] Phone [phone] Care Team Providers Care Horse Breeder Name Role Phone Farooq Rodríguez DO Primary Care Provider [phone] Reason for Visit * Reason Comments NEW PATIENT FBSE. Last saw Dr. Rubi leggett in 2019. Growing lesion R religious, lump on tailbone that will occasionally bleed, peeling growth on L flank x years. * Evaluate & Treat - Unlimited Visits (Within 10 days (routine)) - Authorized Specialty Diagnoses / Procedures Referred By Marlon lim Referred To Contact Dermatology Diagnoses Facial lesion Lore Chaudhary PA-C [address] [place] [address] Referral ID Status Reason Start Date Expiration Date Visits Requested Visits Authorized [id number] Authorized Specialty Services Required 3 [phone] Encounter Details Date Type Department Care Team (Late st Contact Info) Description 02/04/2024 9:20 AM EDT Office Visit Dermatology, [facility] [address] [place] [address] Yusra Chadwick PA-C [address] [place] [address] [place] [address] Skin exam, screening for cancer*; Multiple nevi; Inflamed seborrheic keratosis; Seborrheic keratosis Allergies Active Allergy Reactions Criticality Noted Date Comments Beta Adrenergic Blockers Bradycardia High 09/20/2023 documented as of this encounter (statuses as of 02/04/2024) Medications Medication Sig Dispensed Refills Start Date [...] by mouth in the morning. 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 0 to 44.9 in adult 05/29/2022 10/04/2023 Overview: Per Obesity protocol Bradycardia 05/31/2020 09/28/2023 Encounter for surveillance of abnormal nevi 04/08/2015 04/29/2021 Neoplasm of uncertain behavior of skin 03/31/2014 09/28/2023 Edema 01/15/2013 09/28/2023 Bronchiectasis 04/18/2003 06/12/2017 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 Pneumonia due to other virus not elsewhere classified 12/24/2002 04/29/2021 documented as of this encounter (statuses as of 02/04/2024) Immunizations Name Administration Dates Next Due COVID-19 [...] Tobacco: Never Smokeless Tobacco: Former Quit: 04/21/2012 Tobacco Cessation:Counseling Given: Not Answered [...] as of this encounter Progress Notes * Yusra Chadwick PA-C - 02/04/2024 9:00 AM EDT SUBJECTIVE: CC: FBSE. Last saw Dr. Cancino in 2019. Growing lesion R religious, lump on tailbone that will occasionally bleed, peeling growth on L flank x years. HPI: Placido Dean is a 63 year old male seen at the request of Lore Chaudhary PA-C forfull body skin exam. Spot on R religious. Present for years. Not symptomatic. Spot on L upper back and L abdomen. Bothersome. Scab. Bleed. DERMATOLOGIC HISTORY: Reviewed previous office notes and relevant surgical pathology: History of skin disorders: no History of skin cancer: no Good with sun protection PERTINENT FAMILY HISTORY: Skin cancer: no Skin disorders: no REVIEW OF SYSTEMS: See HPI- all other findings negative Constitutional: (-) fever, chills, sweats, weight loss Cardiovascular: (-) lower extremity edema Skin: (-) no rash or new or changing moles or skin lesions Past Medical History: Diagnosis Date Arthritis Asthma Bronchiectasis (HCC) CHF (congestive heart failure) (HCC) Depression GERD (gastroesophageal reflux disease) HLD (hyperlipidemia) HTN (hypertension) Hypothyroidism Lumbar radiculopathy Migraines Paralysis (HCC) [birth year]19[birth year]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 age 5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 Pericardial effusion 01/17/2003 idiopathic, at [facility] Pilonidal cyst without infection Patien t Active Problem List Diagnosis Code Pericardial effusion [...] aortic root (HCC) I77.810 Ascending aorta dilatation ([facility]) I77.810 Chronic diastolic (congestive) heart failure ([facility]) I50.32 Chest pain with normal coronary angiography R07.9 Chronic pain syndrome G89.4 Mild persistent asthma J45.30 Body mass index (BMI) of 45.0 to 49.9 in adult ([facility]) Z68.42 Moderate persistent asthma with exacerbation J45.41 SOCIAL HISTORY: Social History Tobacco Use Smoking status: Never Smokeless tobacco: Current Last attempt to quit: 04/21/2012 Tobacco comments: quit Substance Use Topics Alcohol use: Yes Alcohol/week: 5.0 standard drinks of alcohol Types: 6 12 oz of beer per week Comment: Occ. Vaping/E-Cigarette Use Vaping/E-Cigarette Use Never User Vaping/E-Cigarette Substances Vaping/E-Cigarette Devices MEDICA TIONS: Current Outpatient Medications Medication Sig Dispense Refill [...] 1 Capsule by mouth in the morning. Folsom-3 Fatty Acids (OMEGA 3 500) 500 MG [...] Rodríguez DO 2.5 mg at 08/16/23 1243 ALLERG IES: Beta adrenergic blockers OBJECTIVE: GEN: Healthy, alert, no distress, appears oriented, pleasant, and cooperative. PSYCH: Appropriate mood and affect, alert SKIN: Detailed exam of scalp, hair, face including lids and lips, ears, neck, chest, back, abdomen,buttocks, bilateral upper extremities and bilateral lower extremities including the nails and digits was completed and are within normal limits with the following exceptions: 1. Brown, stuck on papule on L upper back and L abdomen 2. Scattered at the trunk and bilateral upper and lower extremities are multiple evenly pigmented brown macules and papules without significant irregularity ASSESS MENT/PLAN: Inflamed/irritated seborrheic keratosis. -Due to chronic irritation recommended cryotherapy. Patient agreeable. Cryotherapy was recommended for treatment today which patient was agreeable to. The risks, benefits, indications, alternatives, and complications were discussed, and informed consent was obtained. Specifically, the risks of permanent scar, loss or darkening of skin color, blister and recurrence of l esion were discussed. A total of 2 lesion(s) were treated with cryotherapy. The patient tolerated the procedure well without complications. Wound care instructions were given. 2. Multiple benign-appearing nevi - No features concerning for malignancy on exam today. - Continue to monitor with monthly self-skin exams. - Patient counseled on ABCDEs of melanoma. - Discussed and emphasized importance of sun protection including broadband, water-resistant, SPF 30 or greater sunscreen with reapplication q2h or after swimming/excessive perspiration and sun protective attire (wide-brimmed hats, long pants/shirt, sunglasses). - Patient to contact physician for any new or changing lesions or other concerns. -Multiple atypical nevi on back and gluteal fold. Per thinks stable but keeps getting more andhard to keep track of. Patient makes atypical nevi so photos taken and instructed to return in 3 months. Will biopsy any interval change at that time but monitor closely. 3. Routine Skin Examination For Skin Cancer -Advised to call with any new or changing skin lesions. -Counseled patient on criteria for good sunscreen/sun protection. -Advised to perform routine (at least once a year) skin self-examinations. Advised to contact theirdermatologist immediately if they notice any new or changing skin lesions. Patient with today. Follow-up: 3 months Photos taken -, patient consented to photos. Patient Phone Numbers [employer] [phone] Applicable photos (if any) and chart reviewed by Dr. Favio Leon The patient was encouraged to contact me with any further questions or concerns. Yusra Chadwick PA-C 02/04/2024 9:00 AM Ref: ALICIA LORE SARA[] [address] [facility] [address] (office) [phone] (fax) documented in this encounter Nursing Notes * Poppy Gottlieb, MED ASSIST - 02/04/2024 9:02 AM EDT Chief Complaint Patient presents with NEW PATIENT FBSE. Last saw Dr. Cancino in 2019. Growing lesion R religious, lump on tailbone that will occasionally bleed, peeling growth on L flank x years. documented in this encounter Plan of Treatment Upcoming Encounters Date Type Department Care Team (Late st Contact Info) Description 02/05/2024 11:00 AM EDT Scheduled Telephone Interventional [facility] [address] [place] [address] Therapy, Nurse Pain [address] [place] [address] 02/08/2024 8:30 AM EDT Office Visit Cardiology, [facility] [address] [place] [address] Kath Carlin PA-C [address] [facility] [place] [address] 05/13/2024 1:30 PM EDT Office Visit Dermatology, [facility] [address] [place] [address] [place] [address] Yusra Chadwick PA-C [address] [place] [address] [place] [address] 07/02/2024 11:40 AM EDT Office Visit Family Practice [facility] [place] [address] [facility] [place] [address] Farooq Rodríguez DO [address] [place] [address] Scheduled Procedures Name Priority Associated Diagnoses Date/Ti [...] this encounter Medical Devices Implanted Type Area Taxi Dancer Device Identifier Shelf Expiration Date Model / Serial / Lot Medtronic Spinal Stimulator 1.8 Lead Implanted:Qty: 1 on 02/02/2023 by Bishop Jung MD at OR [facility] N/A: Spine Lumbar 10/18/2026 [id number] / / [id number] Medtronic Spinal Stimulator Lead 1.8 Implanted:Qty: 1 on 02/02/2023 by Bishop Jung MD at OR [facility] N/A: Spine Lumbar 10/18/2026 [id number] / / [id number] Envelope Tyrx Med Antibacteril - [id number] Implanted:Qty: 1 on 02/02/2023 by Bishop Jung MD at OR [facility] N/A: Spine Lumbar [employer] 08/21/2023 [id number] / / documented as of this encounter [...] [facility] contracted radiologist. Yusra Chadwick PA-C RADIOLO SALLIE ([facility]) documented in this encounter Visit Diagnoses Diagnosis Skin exam, screening for cancer- Primary Screening for malignant neoplasm of the skin Multiple nevi Benign neoplasm of skin, site unspecified Inflamed seborrheic keratosis Seborrheic keratosis Other seborrheic keratosis documented in this encounter Care Teams Horse Breeder Relationship Specialty Start Date End Date Farooq Rodríguez DO [address] [place] [address] PCP - General Family Medicine 08/22/19 documented as of this encounter
--- OUTSIDE RECORDS SUMMARY | 2024-04-06 00:04 | External Medical Summary | Summary of Care ---
Author Name Unknown Organization [facility] Address [address] [facility] [place] [address] Phone [phone] Care Team Providers Care Market Risk Specialist Name Role Phone Kelly Mitchell DO Primary Care Provider [phone] Reason for Visit * Reason Comments eRx-Medication Refill Encounter Details Date Type Department Care Team (Late st Contact Info) Description 01/16/2024 Refill Family Practice [facility] [address] [facility] [place] [address] Kelly Mitchell DO [address] [facility] [place] [address] Allergies Active Allergy Reactions Criticality Noted Date Comments Beta Adrenergic Blockers Bradycardia High 09/20/2023 documented as of this encounter (statuses as of 01/16/2024) Medications Medication Sig Dispensed Refills Start Date [...] by mouth in the morning. 0 Active [place]-3 Fatty Acids (OMEGA 3 500) 500 [...] THE MORNING 135 Tablet 3 01/16/2024 Active Furosemide 40 MG Oral Tablet (Lasix) Take 1.5 Tablets by mouth in the morning. 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 01/17/2003 02/10/2021 Pneumonia due to other virus not elsewhere classified 12/24/2002 04/29/2021 documented as of this encounter (statuses as of 01/16/2024) Immunizations Name Administration Dates Next Due COVID-19 [...] Notes * Telephone Encounter - Cathi Steele [facility] - 01/16/2024 3:28 PM EST Signed Prescriptions: Disp Refills Furosemide 40 MG Oral Tablet (Lasix) 135 Ta*3 Sig: TAKE ONE ANDONE-HALF TABLETS IN THE MORNINGAuthorizing Provider: KELLY MITCHELL User: CATHI STEELE documented in this encounter Plan of Treatment Upcoming Encounters Date Type Department Care Team (Late st Contact Info) Description 02/04/2024 9:20 AM EDT Office Visit Dermatology, [facility] [address] [place] [address] Yusra Chadwick PA-C [address] [place] [address] 02/05/2024 11:00 AM EDT Scheduled Telephone Interventional Pain Ctr [facility] [address] [place] [address] Therapy, Nurse Pain [address] [place] [address] 02/08/2024 8:30 AM EDT Office Visit Cardiology, [facility] [address] [facility] [place] [address] Kath Carlin PA-C [address] [facility] [place] [address] 07/02/2024 11:40 AM EDT Office Visit Family Practice [facility] [address] [place] [address] Kelly Mitchell DO [address] [place] [address] Scheduled Procedures Name Priority Associated Diagnoses Date/Ti [...] this encounter Medical Devices Implanted Type Area Registered Radiographer Device Identifier Shelf Expiration Date Model / Serial / Lot Medtronic Spinal Stimulator 1.8 Lead Implanted:Qty: 1 on 02/02/2023 by Bishop Jung MD at [facility] N/A: Spine Lumbar 10/18/2026 [id number] / / [id number] Medtronic Spinal Stimulator Lead 1.8 Implanted:Qty: 1 on 02/02/2023 by Bishop Jung MD at OR [facility] N/A: Spine Lumbar 10/18/2026 [id number] / / [id number] Envelope Tyrx Med Antibacteril - [id number] Implanted:Qty: 1 on 02/02/2023 by Bishop Jung MD at OR [facility] N/A: Spine Lumbar [employer] 08/21/2023 [id number] / / documented as of this encounter Care Teams Market Risk Specialist Relationship Specialty Start Date End Date Kelly Mitchell DO [address] [place] [address] PCP - General Family Medicine 08/22/19 documented as of this encounter
--- OUTSIDE RECORDS SUMMARY | 2024-04-06 00:04 | External Medical Summary ---
Author Name Unknown Address Unknown Organization K01:[facility] [address] [facility] [address] [place] [address] Laboratory Report Ordering Provider Test Date Status STEPHEN MENDOZA 01/02/2024 10:28:54 Final Observation Date Value Abnormality Reference (Units ) Status TSH 01/02/2024 10:28:54 3.83 0.27-4.20 (uIU/mL) Final Performing Location [facility] - [address] [place] [address]
--- OUTSIDE RECORDS SUMMARY | 2024-04-06 00:04 | External Medical Summary | Summary of Care ---
Author Name Unknown Organization [facility] Address [address] [address] Phone [phone] Care Team Providers Care Managing Jeweler Name Role Phone Farooq Rodríguez DO Primary Care Provider [phone] Reason for Visit * Reason Comments NEW PATIENT FBSE. Last saw Dr. Rubi leggett in 2019. Growing lesion R yarsani, lump on tailbone that will occasionally bleed, peeling growth on L flank x years. * Evaluate & Treat - Unlimited Visits (Within 10 days (routine)) - Authorized Specialty Diagnoses / Procedures Referred By Marlon lim Referred To Contact Dermatology Diagnoses Facial lesion Lore Vargas PA-C [address] [place] [address] Referral ID Status Reason Start Date Expiration Date Visits Requested Visits Authorized [id number] Authorized Specialty Services Required 3 [phone] Encounter Details Date Type Department Care Team (Late st Contact Info) Description 02/04/2024 9:20 AM EDT Office Visit Dermatology, [facility] [address] [place] [address] [place] [address] Yusra Chadwick PA-C [address] [place] [address] [place] [address] Skin exam, screening for cancer*; Multiple nevi; [...] by mouth in the morning. 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 Pneumonia due to other virus not elsewhere classified 12/24/2002 04/29/2021 documented as of this encounter (statuses as of 02/04/2024) Immunizations Name Administration Dates Next Due COVID-19 mRNA, LNP-s, No Pre serve, 2-Dose Series (Pfizer) 04/09/2021,03/19/2021 Pneumococcal Conjugate Vacc, 13 Valent (Prevnar) 08/19/2010 Pneumococcal Conjugate Vacci ne, 7 Valent 10/15/2002 Pneumococcal Polysaccharide PPV23 (Pneumovax) 08/11/2015,08/19/2010 Seasonal Influenza [...] as of this encounter Progress Notes * Mckay Leon MD - 02/04/2024 9:20 AM EDT I have reviewed the relevant notes and photographs taken by COLTON Coleman. I have reviewed and agree with the assessment and plan. Mckay Leon MD * Yusra Chadwick PA-C - 02/04/2024 9:00 AM EDT SUBJECTIVE: CC: FBSE. Last saw Dr. Cancino in 2019. Growing lesion R yarsani, lump on tailbone that will occasionally bleed, peeling growth on L flank x years. HPI: Placido Dean is a 63 year old male seen at the request of Lore Vargas PA-C forfull body skin exam. Spot on R yarsani. Present for years. Not symptomatic. 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 Pericardial effusion 01/17/2003 idiopathic, at [facility] Pilonidal cyst without infection Patien t Active [...] LDL below 100 E78.5 Dilated aortic root ([facility]) I77.810 Ascending aorta dilatation ([facility]) I77.810 Chronic diastolic (congestive) heart failure ([facility]) I50.32 Chest pain with normal coronary angiography R07.9 Chronic pain syndrome G89.4 Mild persistent asthma J45.30 Body mass index (BMI) of 45.0 to 49.9 in adult ([facility]) Z68.42 Moderate persistent asthma with exacerbation J45.41 [...] 1 Capsule by mouth in the morning. [place]-3 Fatty Acids (OMEGA 3 500) 500 [...] with today. Follow-up: 3 months Photos taken , patient consented to photos. Patient Phone Numbers Applicable photos (if any) and chart reviewed by Dr. Favio Leon The patient was encouraged to contact me with any further questions or concerns. Yusra Chadwick PA-C 02/04/2024 9:00 AM Ref: LORE VARGAS[] [address] [place] [address] (office) [phone] (fax) documented in this encounter Nursing Notes * Poppy Gottlieb MED ASSIST - 02/04/2024 9:02 AM EDT Chief Complaint Patient presents with NEW PATIENT FBSE. Last saw Dr. Cancino in 2019. Growing lesion R yarsani, lump on tailbone that will occasionally bleed, peeling growth on L flank x years. documented in this encounter Plan of Treatment Upcoming Encounters Date Type Department Care Team (Late st Contact Info) Description 02/05/2024 11:00 AM EDT Scheduled Telephone [facility] [place] [facility] [address] Therapy, Nurse Pain 16 [place] [address] 02/08/2024 8:30 AM EDT Office Visit Cardiology, [facility] [address] [facility] [place] [address] Kath Carlin PA-C 132 [facility] [place] [address] 05/13/2024 1:30 PM EDT Office Visit Dermatology, [place] [address] [place] [address] [place] [address] Yusra Chadwick PA-C [address] [place] [address] [place] [address] 07/02/2024 11:40 AM EDT Office Visit Family Practice [facility] [address] [facility] [place] [address] Farooq Rodríguez DO [address] [facility] [place] [address] Scheduled Procedures Name Priority Associated Diagnoses Date/Ti [...] this encounter Medical Devices Implanted Type Area Veterinary Technology Instructor Device Identifier Shelf Expiration Date Model / Serial / Lot Medtronic Spinal Stimulator 1.8 Lead Implanted:Qty: 1 on 02/02/2023 by Bishop Jung MD at OR [facility] N/A: Spine Lumbar 10/18/2026 [id number] / / [id number] Medtronic Spinal Stimulator Lead 1.8 Implanted:Qty: 1 on 02/02/2023 by Bishop Jung MD at OR [facility] N/A: Spine Lumbar 10/18/2026 [id number] / / [id number] Envelope Tyrx Med Antibacteril - [id number] Implanted:Qty: 1 on 02/02/2023 by Bishop Jung MD at OR [facility] N/A: Spine Lumbar [employer] 08/21/2023 [id number] / / documented as of this encounter [...] contracted radiologist. Yusra Chadwick PA-C RADIOLO GY ([facility]) documented in this encounter Visit Diagnoses Diagnosis Skin exam, screening for cancer- Primary Screening for malignant neoplasm of the skin Multiple nevi Benign neoplasm of skin, site unspecified Inflamed seborrheic keratosis Seborrheic keratosis Other seborrheic keratosis documented in this encounter Care Teams Managing Jeweler Relationship Specialty Start Date End Date Farooq Rodríguez DO [address] [facility] [place] [address] PCP - General Family Medicine 08/22/19 documented as of this encounter
--- OUTSIDE RECORDS SUMMARY | 2024-04-06 00:04 | External Medical Summary ---
Author Name Unknown Address Unknown Organization K01:[facility] - [address] [facility] [address] [place] [address] Laboratory Report Ordering Provider Test Date Status PARAMJIT MENDOZASudhir 01/02/2024 10:31:14 Final Normal: <30 mg/g creatinine< br/>High: 30-300 mg/g creatinine
Very High: >300 mg/g creatinine
Nephrotic: >2200 mg/g creatinine Observation Date Value Abnormality Reference (Units) Status Albumin, Urine 01/02/2024 10:31:14 <1.20 (mg/dL) Final Creatinine, Urine 01/02/2024 10:31:14 23 (mg/dL) Final ALBUMIN/CREATININE RATIO, HIDE 01/02/2024 10:31:14 Uninterpretable Albumin/Creatinine ratio due to very low albumin and creatinine values. <30 (mg/g Creat) Final Performing Location [facility] - [address] [place] [address]
--- OUTSIDE RECORDS SUMMARY | 2024-04-06 00:04 | External Medical Summary | Summary of Care ---
Author Name Unknown Organization [facility] Address [address] [facility] [place] [address] Phone [phone] Care Team Providers Care Medical And Scientific Illustrator Name Role Phone Farooq Rodríguez DO Primary Care Provider [phone] Reason for Visit * Reason Comments eRx-Medication Refill Encounter Details Date Type Department Care Team (Late st Contact Info) Description 12/20/2023 Refill Cardiology, [facility] [address] [place] [address] Krystal Lam PA-C [address] [place] [address] HTN, goal below 140/90 Allergies No known active allergiesdocumented as of this encounter (statuses as of 12/20/2023) Medications Medication Sig Dispensed Refills Start Date [...] by mouth in the morning. 0 Active [place]-3 Fatty Acids (OMEGA 3 [...] THE MORNING 90 Tablet 3 12/20/2023 Active Lisinopril 40 MG Oral TabletIndications: HTN, goal below 140/90 Take 1 Tablet by mouth in the morning. 90 Tablet 3 12/11/2022 Discontinued Hospital, Clinic, or Other Facility Administered Medication Ordered Dose Route Frequency Start Date End Date Status Albuterol Sulfate (Proventil) (2.5 MG/3ML) 0.083% inhalation solution 2.5 mgIndications:Mild persistent asthma, unspecified whether complicated 2.5 mg NEBULIZER ONCE PRN 06/12/2023 06/11/2024 Active documented as of this encounter (statuses as of 12/20/2023) Active Problems Problem Noted Date Diagnosed Date [...] as of this encounter (statuses as of 12/20/2023) Resolved Problems Problem Noted Date Diagnosed Date [...] as of this encounter (statuses as of 12/20/2023) Immunizations Name Administration Dates Next Due COVID-19 mRNA, LNP-s, No Pre serve, 2-Dose Series ([place]) 04/09/2021,03/19/2021 Pneumococcal Conjugate Vacc, 13 Valent (Prevnar) [...] Telephone Encounter - Krystal Lam PA-C - 12/20/2023 12:39 PM EST Signed Prescriptions: Disp Refills Lisinopril 40 MG Oral Tablet 90 Tab*3 Sig: TAKE 1 TABLET IN THEMORNINGAuthorizing Provider: KRYSTAL LAM * Telephone Encounter - Lynn Sykes COT - 12/20/2023 12:33 PM ESTPending Prescriptions: Disp Refills Lisinopril 40 MG Oral Tablet [Pharmacy Med*90 Tab*3 Sig: TAKE 1 TABLET IN THE MORNING * Telephone Encounter - Lynn Sykes COT - 12/20/2023 12:33 PM EST Did you pend patient's preferred pharmacy and medication before forwarding?yes Pharmacy: [facility]- [place] Pending Prescriptions: Disp Refills Lisinopril 40 MG Oral Tablet [Pharmacy Me*90 Tab*3 Sig: TAKE 1 TABLET IN THE MORNING Last Visit: 05/28/2023 (in office), Visit date not found (telemedicine) Next Visit: 02/08/2024 If no future appointments scheduled, and last appointment is greater than a year ago, please schedule patient for a follow-up appointment Last date the medication was ordered: 12-11-2022 Is this request for a controlled substance?No Urine Drug Screen:No results found for this or any previous visit. Patient Phone Numbers [employer] [phone] [employer] [phone] Labs: Lab Results Component Value Date/Time CREAT 1.0 01/16/2023 10:09 AM CREAT 1.1 11/21/2019 09:45 AM POTASSIUM 3.9 01/16/2023 10:09 AM POTASSIUM 4.3 11/21/2019 09:45 AM TSH 4.58 (H) 01/16/2023 10:09 AM TSH 3.60 11/21/2019 09:45 AM LDLCALC [...] 10:00 AM EST Office Visit Family Practice [facility] [address] [facility] [place], [place] [address] Farooq Rodríguez DO [address] [facility] [place] [address] 01/29/2024 2:10 PM EDT Office Visit Dermatology, [place] [address] [place] [address] [place] [address] Yusra Chadwick PA-C [address] [place] [address] [place] [address] 02/08/2024 8:30 AM EDT Office Visit Cardiology, [facility] [address] [place] [address] Krystal Lam PA-C [address] [place] [address] Scheduled Procedures Name Priority Associated Diagnoses Date/Ti [...] this encounter Medical Devices Implanted Type Area Woods Warden Device Identifier Shelf Expiration Date Model / Serial / Lot Envelope Tyrx Med Antibacteril - [id number] Implanted:Qty: 1 on 02/02/2023 by Bishop Jung MD at OR [facility] N/A: Spine Lumbar [email or web address] 08/21/2023 [id number] / / documented as of this encounter Visit Diagnoses Diagnosis HTN, goal below 140/90 Unspecified essential hypertension documented in this encounter Care Teams Medical And Scientific Illustrator Relationship Specialty Start Date End Date Farooq Rodríguez DO [address] [place] [address] PCP - General Family Medicine 08/22/19 documented as of this encounter
--- OUTSIDE RECORDS SUMMARY | 2024-04-06 00:05 | External Medical Summary | Summary of Care ---
Author Name Unknown Organization [facility] Address [address] [place] [place] [address] Phone [phone] Care Team Providers Care Pourer Bull Ladle Name Role Phone Farooq Rodríguez DO Primary Care Provider [phone] Reason for Visit * Reason Comments Follow Up Left knee 3rd gelsyn * Precert (Within 10 days (routine)) - Authorized Specialty Diagnoses / Procedures Referred By Contac t Referred To Contact Diagnoses Unilateral primary osteoarthritis, left knee Procedures MA GEL-SYN INJECTION 0.1 MG Nima Cox DO [address] [place] [address] Nima Cox DO [address] [place] [address] Referral ID Status Reason Start Date Expiration Date V isits Requested Visits Authorized [id number] Authorized Precert 08/13/2023 11/18/[phone] Encounter Details Date Type Department Care Team (Latest Contact Info) Description 10/10/2023 9:15 AM EST Office Visit Orthopaedics [facility] [address] [place] [address] Nima Cox DO [address] [place] [address] Primary osteoarthritis of left knee* Allergies No known active allergiesdocumented as of this encounter (statuses as of 10/10/2023) Medications Medication Sig Dispensed Refills Start Date [...] by mouth in the morning. 0 Active [place]-3 Fatty Acids (OMEGA 3 500) 500 MG [...] for Wheezing. 54 g 3 10/01/2023 Active Hospital, Clinic, or Other Facility Administered Medication Ordered Dose Route Frequency Start Date End Date Status Albuterol Sulfate (Proventil) (2.5 MG/3ML) 0.083% inhalation solution 2.5 mgIndications:Mild persistent asthma, unspecified whether complicated 2.5 mg NEBULIZER ONCE PRN 06/12/2023 06/11/2024 Active sodium hyaluronate (Gelsyn-3) 16.8 MG/2ML inj 16.8 mgIndications:Primary osteoarthritis of left knee 16.8 mg IX ONCE 10/10/2023 10/10/2023 Active documented as of this encounter (statuses as of 10/10/2023) Active Problems Problem Noted Date Diagnosed Date [...] as of this encounter (statuses as of 10/10/2023) Resolved Problems Problem Noted Date Diagnosed Date [...] as of this encounter (statuses as of 10/10/2023) Immunizations Name Administration Dates Next Due COVID-19 mRNA, LNP-s, No Pre serve, 2-Dose Series ([employer]) 04/09/2021,03/19/2021 Pneumococcal Conjugate Vacc, 13 Valent (Prevnar) 08/19/2010 Pneumococcal Polysaccharide PPV23 (Pneumovax) 08/11/2015,08/19/2010 SEASONAL INFLUENZA, PF, 6 M & Above, IM , (FLULAVAL or FLUZONE) 08/13/2023 Seasonal Influenza Virus Vac cine, Unspecified Formulation 09/02/2020,08/18/2020,08/20/2019,08/21,07/20/2018,08/16/2017,08/10/2016 ,08/03/2016,08/11/2015,08/03/2015,07/20,08/06/2013,08/14/2012,,08/26/2009,09/03/2003,10/15/2002 Seasonal Influenza, Quadriva lent, No Preserve, IM [...] Progress Notes * Nima Cox DO - 10/10/2023 9:15 AM EST Placido Dean [id number] Placido Dean is a 63 year old male who [facility] Gelsyn #3 Placido Dean is here alone ROS EXAM:Constitional: No change in weight, No weakness, No fatigue and No fevers, sweats, or chills Physical Exam General: in no acute distress Mood and Affect: normal Gait and Station: mildly antalgic Assessment and Plan: f/u PRN Primary osteoarthritis of left knee (Primary) - sodium hyaluronate (Gelsyn-3) 16.8 MG/2ML inj 16.8 mg - INJECT MAJOR JX/BURSA W/O US GUIDE Nima Cox DO Primary Care Sports Medicine Orthopaedics [facility] 132 [facility] [place] [address] Procedure note (knee injection), left : Time [...] inch, 21 gauge needle. Injected with Gelsyn . Patient tolerated procedure with no significant bleeding [...] documented in this encounter Nursing Notes * Libby Parr MED ASSIST - 10/10/2023 8:40 AM EST Left knee, 3rd gelsyn documented in this encounter Plan of Treatment Upcoming Encounters Date Type Department Care Team (Late st Contact Info) Description 01/02/2024 10:00 AM EST [facility] [address] [place] [address] Farooq Rodríguez DO 200 [facility] [place], [place] [address] 01/29/2024 2:10 PM EDT Office Visit Dermatology, [place] [address] [place] [address] [place] [address] Yusra Chadwick PA-C [address] [place] [address] [place] [address] 02/08/2024 8:30 AM EDT Office Visit Cardiology, [facility] [address] [place] [address] Kath Carlin PA-C [address] [place] [address] Scheduled Orders Name Type Priority Associated Diagnoses Orde r Schedule INJECT MAJOR JX/BURSA W/O US GUIDE Procedures Routine Primary osteoarthritis of left knee Ordered: 10/10/2023 Scheduled Procedures Name Priority Associated Diagnoses Date/Ti [...] this encounter Medical Devices Implanted Type Area Trademark Attorney Device Identifier Shelf Expiration Date Model / Serial / Lot Envelope Tyrx Med Antibacteril - [id number] Implanted:Qty: 1 on 02/02/2023 by Bishop Jung MD at OR [facility] N/A: Spine Lumbar [employer] 08/21/2023 [id number] / / documented as of this encounter Visit Diagnoses Diagnosis Primary osteoarthritis of left knee- Primary Primary localized osteoarthrosis, lower leg documented in this encounter Care Teams Pourer Bull Ladle Relationship Specialty Start Date End Date Farooq Rodríguez DO [address] [place] [address] PCP - General Family Medicine 08/22/19 documented as of this encounter
--- OUTSIDE RECORDS SUMMARY | 2024-04-06 00:05 | External Medical Summary | Summary of Care ---
Author Name Unknown Organization [facility] Address [address] [facility] [place] [address] Phone [phone] Care Team Providers Care Branch Manager Trainee Name Role Phone Kelly Rodríguez DO Primary Care Provider [phone] Reason for Visit * Reason Onset Date Comments Medication Refill 11/08/2023 Encounter Details Date Type Department Care Team (Late st Contact Info) Description 11/08/2023 Refill Family Practice [facility] [place] [address] [facility] [place] [address] Kelly Rodríguez DO [facility] [address] Allergies No known active allergiesdocumented as of this encounter (statuses as of 11/08/2023) Medications Medication Sig Dispensed Refills Start Date [...] by mouth in the morning. 0 Active [place]-3 Fatty Acids (OMEGA 3 500) 500 MG [...] to breakfast or other meds). 30 Tablet 2 11/08/2023 Active Levothyroxine Sodium 125 MCG Oral Tablet (Levoxyl) Take by mouth 1 Tablet in the morning. (at least 30 min prior to breakfast or other meds) Repeat labs after 11/01. 30 Tablet 11 09/20/2022 3 Discontinue d(Refill) Hospital, Clinic, or Other Facility Administered Medication Ordered Dose Route Frequency Start Date End Date Status Albuterol Sulfate (Proventil) (2.5 MG/3ML) 0.083% inhalation solution 2.5 mgIndications:Mild persistent asthma, unspecified whether complicated 2.5 mg NEBULIZER ONCE PRN 06/12/2023 06/11/2024 Active documented as of this encounter (statuses as of 11/08/2023) Active Problems Problem Noted Date Diagnosed Date [...] as of this encounter (statuses as of 11/08/2023) Resolved Problems Problem Noted Date Diagnosed Date Resolved Date Body mass index (BMI) of 40. 0 to 44.9 in adult 05/29/2022 10/04/2023 Overview: Per Obesity protocol Bradycardia 05/31/2020 09/28/2023 Encounter for surveillance of abnormal nevi 04/08/2015 04/29/2021 Neoplasm of uncertain behavior of skin 03/31/2014 09/28/2023 Edema 01/15/2013 09/28/2023 Bronchiectasis 04/18/2003 06/12/2017 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 02/10/2021 Pneumonia due to other virus not elsewhere classified 12/24/2002 04/29/2021 documented as of this encounter (statuses as of 11/08/2023) Immunizations Name Administration Dates Next Due COVID-19 [...] encounter Miscellaneous Notes * Telephone Encounter - Cristin Antony RPh - 11/08/2023 4:21 PM ESTSigned Prescriptions: Disp Refills Levothyroxine Sodium 125 MCG Oral Tablet (*30 Tab*2 Sig: Take 1 Tablet by mouth in the morning. (at least 30 min prior to breakfast or other meds).Authorizing Provider: KELLY RODRÍGUEZ User: CRISTIN ANTONY * Telephone Encounter - Yeimy Torrez, php architect - 11/08/2023 8:38 AM EST Did you pend patient's preferred pharmacy and medication before forwarding?yes Pharmacy: [facility] [id number] [place] Pending Prescriptions: Disp Refills Levothyroxine Sodium 125 MCG Oral Tablet *30 Tab*11 Sig: Take 1 Tablet by mouth in the morning. (at least 30 min prior to breakfast or other meds) Repeat labs after 11/01. Last Visit: 09/28/2023 (in office), 03/15/2020 (telemedicine) Next Visit: 01/02/2024 If no future appointments scheduled, and last appointment is greater than a year ago, please schedule patient for a follow-up appointment Last date the medication was ordered: 09/20/2022 Is this request for a controlled substance?No [...] 10:00 AM EST Office Visit Family Practice [facility] [place] [address] [place] [address] Kelly Rodríguez, DO [address] [place] [address] [address] 01/29/2024 2:10 PM EDT Office Visit Dermatology, [place] [address] [place] [address] [place] [address] Yusra Chadwick PA-C [address] [place] [address] [place] [address] 02/08/2024 8:30 AM EDT Office Visit Cardiology, [facility] [address] [place] [address] Kath Carlin PA-C [address] [place] [address] Scheduled Procedures Name Priority Associated Diagnoses Date/Ti [...] this encounter Medical Devices Implanted Type Area Windshield Technician Device Identifier Shelf Expiration Date Model / Serial / Lot Envelope Tyrx Med Antibacteril - [id number] Implanted:Qty: 1 on 02/02/2023 by Bishop Jung MD at [facility] N/A: Spine Lumbar [employer] 08/21/2023 [id number] / / documented as of this encounter Care Teams Branch Manager Trainee Relationship Specialty Start Date End Date Kelly Rodríguez DO [address] [place] [address] PCP - General Family Medicine 08/22/19 documented as of this encounter
--- OUTSIDE RECORDS SUMMARY | 2024-04-06 00:05 | External Medical Summary | Summary of Care ---
Author Name Unknown Organization [facility] Address [address] [place] [place] [address] Phone [phone] Care Team Providers Care Home Health Care Respiratory Therapist Name Role Phone Kelly Mitchell DO Primary Care Provider [phone] Reason for Visit * Reason Onset Date Comments Medication Refill 11/25/2023 Encounter Details Date Type Department Care Team (Late st Contact Info) Description 11/25/2023 Refill Family Practice [facility] [address] [facility] [place] [address] Kelly Mitchell DO [address] [facility] [address] Allergies No known active allergiesdocumented as of this encounter (statuses as of 11/27/2023) Medications Medication Sig Dispensed Refills Start Date [...] by mouth in the morning. 0 Active Kelly-3 Fatty Acids (OMEGA 3 500) 500 MG [...] other meds). 90 Tablet 0 11/27/2023 Active Levothyroxine Sodium 125 MCG Oral Tablet (Levoxyl) Take 1 Tablet by mouth in the morning. (at least 30 min prior to breakfast or other meds). 30 Tablet 2 11/08/2023 Discontinue d(Refill) Hospital, Clinic, or Other Facility Administered Medication Ordered Dose Route Frequency Start Date End Date Status Albuterol Sulfate (Proventil) (2.5 MG/3ML) 0.083% inhalation solution 2.5 mgIndications:Mild persistent asthma, unspecified whether complicated 2.5 mg NEBULIZER ONCE PRN 06/12/2023 06/11/2024 Active documented as of this encounter (statuses as of 11/27/2023) Active Problems Problem Noted Date Diagnosed Date [...] as of this encounter (statuses as of 11/27/2023) Resolved Problems Problem Noted Date Diagnosed Date [...] as of this encounter (statuses as of 11/27/2023) Immunizations Name Administration Dates Next Due COVID-19 [...] Notes * Telephone Encounter - Tien Zhu yevgeniy - 11/27/2023 5:56 PM EST Signed Prescriptions: Disp Refills Levothyroxine Sodium 125 MCG Oral Tablet (*90 Tab*0 Sig: Take 1 Tablet by mouth in the morning. (at least 30 min prior to breakfast or other meds).Authorizing Provider: KELLY MITCHELL User: TIEN ZHU documented in this encounter Plan of Treatment Upcoming Encounters Date Type Department Care Team (Late st Contact Info) Description 01/02/2024 10:00 AM EST Office Visit Family Practice [facility] [address] [facility] [place], [place] [address] Kelly Mitchell DO [address] [facility] [place], [place] [address] 01/29/2024 2:10 PM EDT Office Visit Dermatology, [place] [address] [place] [address] [place] [address] Yusra Chadwick PA-C [address] [place] [address] [place] [address] 02/08/2024 8:30 AM EDT Office Visit Cardiology, [facility] [address] [place] [address] Kath Carlin PA-C [address] [place] [address] Scheduled Procedures Name Priority Associated Diagnoses Date/Ti [...] this encounter Medical Devices Implanted Type Area Civil Engineer Device Identifier Shelf Expiration Date Model / Serial / Lot Envelope Tyrx Med Antibacteril - [id number] Implanted:Qty: 1 on 02/02/2023 by Bishop Jung MD at OR [facility] N/A: Spine Lumbar [employer] 08/21/2023 [id number] / / documented as of this encounter Care Teams Home Health Care Respiratory Therapist Relationship Specialty Start Date End Date Kelly Mitchell DO [address] [place] [address], [place] [address] PCP - General Family Medicine 08/22/19 documented as of this encounter
--- OUTSIDE RECORDS SUMMARY | 2024-04-06 00:05 | External Medical Summary | Summary of Care ---
Author Name Unknown Organization [facility] Address [address] [facility] [address] Phone [phone] Care Team Providers Care Cleaner Laboratory Equipment Name Role Phone Farooq Rodríguez DO Primary Care Provider [phone] Reason for Visit * Reason Comments Follow Up Left knee 3rd gelsyn * Precert (Within 10 days (routine)) - Authorized Specialty Diagnoses / Procedures Referred By Contac t Referred To Contact Diagnoses Unilateral primary osteoarthritis, left knee Procedures LA GEL-SYN INJECTION 0.1 MG Nima Cox DO [address] [place] [address] Nima Cox DO [address] [place] [address] Referral ID Status Reason Start Date Expiration Date V isits Requested Visits Authorized [id number] Authorized Precert 08/13/2023 11/18/2099 [id number] Encounter Details Date Type Department Care Team (Latest Contact Info) Description 10/10/2023 9:15 AM EST Office Visit Orthopaedics [facility] [address] [place] [address] Nima Cox DO [address] [place] [address] Primary osteoarthritis of left knee* Allergies No [...] by mouth in the morning. 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 Pneumonia due to other virus not elsewhere classified 12/24/2002 04/29/2021 documented as of this encounter (statuses as of 10/10/2023) Immunizations Name Administration Dates Next Due COVID-19 mRNA, LNP-s, No Pre serve, 2-Dose Series (ecomom) 04/09/2021,03/19/2021 Pneumococcal Conjugate Vacc, 13 Valent (Prevnar) 08/19/2010 Pneumococcal Conjugate Vacci ne, 7 Valent 10/15/2002 Pneumococcal Polysaccharide PPV23 (Pneumovax) 08/11/2015,08/19/2010 SEASONAL INFLUENZA, [...] this encounter Progress Notes * Nima Cox, - 10/10/2023 9:15 AM EST Placido Dean [phone] Placido Dean is a 63 year old male who presents for f/u to [facility] for LEFT knee Gelsyn #3 [...] DO Primary Care Sports Medicine Orthopaedics [address] [address] Procedure note (knee injection), left : Time [...] Description 01/02/2024 10:00 AM EST Office Visit [facility] [address] [place] [address] Farooq Rodríguez DO [address] [place] [address] 01/29/2024 2:10 PM EDT Office Visit Dermatology, [place] [address] [place] [address] [place] [address] Yusra Chadwick PA-C [address] [place] [address] [place] [address] 02/08/2024 8:30 AM EDT Office Visit Cardiology, [facility] [address] [address] Kath Carlin PA-C [address] [place] [id number] Scheduled Orders Name Type Priority Associated Diagnoses [...] encounter Medical Devices Implanted Type Area Barrel Polisher Device Identifier Shelf Expiration Date Model / Serial / Lot Envelope Tyrx Med Antibacteril - [id number] Implanted:Qty: 1 on 02/02/2023 by Bishop Jung MD at OR [facility] N/A: Spine Lumbar [employer] 08/21/2023 [id number] / / documented as of this encounter Visit Diagnoses Diagnosis Primary osteoarthritis of left knee- Primary Primary localized osteoarthrosis, lower leg documented in this encounter Administered Medications Inactive Administered Medications - up to 3 most recent administrations Medication Order MAR Action Action Date Dose Rate Site sodium hyaluronate (Gelsyn-3) 16.8 MG/2ML inj 16.8 mg 16.8 mg, Intra-Articular, ONCE, On Sun10/10/23 at 0915, For 1 dose Given 10/10/2023 8:58 AM EST 16.8 mg K nee Left documented in this encounter Care Teams Cleaner Laboratory Equipment Relationship Specialty Start Date End Date Farooq Rodríguez DO [address] [facility] [place] [address] PCP - General Family Medicine 08/22/19 documented as of this encounter
--- OUTSIDE RECORDS SUMMARY | 2024-04-06 00:06 | External Medical Summary | Summary of Care ---
Author Name Unknown Organization [facility] Address [address] [place] [facility] [place] [address] Phone [phone] Care Team Providers Care Coloring Room Worker Name Role Phone Farooq Rodríguez DO Primary Care Provider [phone] Reason for Visit * Reason Comments Follow Up Left knee 3rd gelsyn * Precert (Within 10 days (routine)) - Authorized Specialty Diagnoses / Procedures Referred By Contac t Referred To Contact Diagnoses Unilateral primary osteoarthritis, left knee Procedures SD GEL-SYN INJECTION 0.1 MG Nima Cox DO [address] [place] [address] Nima Cox DO [address] [place] [address] Referral ID Status Reason Start Date Expiration Date V isits Requested Visits Authorized [id number] Authorized Precert 08/13/2023 11/18/2099 [id number] Encounter Details Date Type Department Care Team (Latest Contact Info) Description 10/10/2023 9:15 AM EST Office Visit Orthopaedics [facility] [address] [place] [address] Nima Cox DO [address] [place] [address] Primary osteoarthritis of left knee* Allergies No [...] by mouth in the morning. 0 Active [place]-3 Fatty Acids (OMEGA 3 500) 500 MG [...] mRNA, LNP-s, No Pre serve, 2-Dose Series (Re-Compose) 04/09/2021,03/19/2021 Pneumococcal Conjugate Vacc, 13 Valent (Prevnar) [...] - 10/10/2023 9:15 AM EST Placido Dean [id number] Placido Dean is a 63 year old male who presents for f/u to [facility] for LEFT knee Gelsyn #3 [...] Cox DO Primary Care Sports Medicine Orthopaedics [facility] [address] [facility] [place] [address] Procedure note (knee injection), left : Time [...] Description 01/02/2024 10:00 AM EST [facility] [address] [place] [address] Farooq Rodríguez DO [address] [facility] [place], [place] [address] 01/29/2024 2:10 PM EDT Office Visit Dermatology, [place] [address] [place] [address] [place] [address] Yusra Chadwick PA-C [address] [place] [address] [place] [address] 02/08/2024 8:30 AM EDT Office Visit Cardiology, [facility] [address] [place] [address] Kath Carlin PA-C [address] [place] [address] Scheduled Orders Name Type Priority Associated Diagnoses [...] this encounter Medical Devices Implanted Type Area Laboratory Phlebotomist Device Identifier Shelf Expiration Date Model / Serial / Lot Envelope Tyrx Med Antibacteril - [id number] Implanted:Qty: 1 on 02/02/2023 by Bishop Jung MD at OR [facility] N/A: Spine Lumbar [employer] 08/21/2023 [id number] / / documented as of this encounter Visit Diagnoses Diagnosis Primary osteoarthritis of left knee- Primary Primary localized osteoarthrosis, lower leg documented in this encounter Care Teams Coloring Room Worker Relationship Specialty Start Date End Date Farooq Rodríguez DO [address] [place] [address] PCP - General Family Medicine 08/22/19 documented as of this encounter
== END 2024-04-05 17:00 | disposition home or self-care (01) ==
LOC: ED 20:25 → 2S 20:25